=== PATIENT | male | born 1945 | race Two or more races ===

== ENCOUNTER 2019-01-19 04:26 | Inpatient (IN) | payer MEDICAID ==
[~2019-01-19] VITALS: Ht 167.6 cm; Wt 67.6 kg
[2019-01-19] MEDS ORDERED: BENAZEPRIL HCL5 MG ORAL (04:38)
[2019-01-19] MEDS ORDERED: ARICEPT10 MG ORAL (04:38)
[2019-01-19] MEDS ORDERED: FLEET ENEMA133 ML RECTAL (04:38)
[2019-01-19] MEDS ORDERED: COLACE100 MG ORAL (04:38)
[2019-01-19] MEDS ORDERED: DULCOLAX10 MG RC (04:38)
--- NOTE | 2019-01-19 04:40 | NUR ---
ED Nurse Note: PT was brought in from [facility] by EMS. As per EMS statment, nursing facility does not know how pt injured L hip. L hip appears brused, but no other deformites noted. pt appeart to be alert and oriented times 1, but responds to his own name. vital signs are steady. pt is blind in both eyes as reported from EMS.
--- NOTE | 2019-01-19 04:40 | NUR ---
Note emeritaone in EDM - 01/19/19 at 0649 by DIANE ED Nurse Note: PT was brought in from [facility] by EMS. As per EMS statment, nursing facility does not know how pt injured L hip. L hip appears brused, but no other deformites noted. pt appeart to be alert and oriented times 1, but responds to his own name. vital signs are steady.
[2019-01-19] MEDS ORDERED: MULTIVITAMINS1 EAC2 ORAL (04:42)
[2019-01-19] MEDS ORDERED: METFORMIN HCL500 M1 ORAL (04:42)
[2019-01-19] MEDS ORDERED: LATANOPROST 0.7.5 ML OP (04:42)
[2019-01-19] MEDS ORDERED: MILK OF MA400 MG/51 ORAL (04:42)
[2019-01-19] MEDS ORDERED: FUROSEMIDE20 M1 ORAL (04:42)
[2019-01-19] MEDS ORDERED: Morphine Sulfate 4mg/ml Inj (IV USE ONLY) IVP ONE (04:45)
[2019-01-19] MEDS ORDERED: OMEGA 3 FATTY ACIDS PO (04:46)
[2019-01-19] MEDS ORDERED: WELCHOL625 MG ORAL (04:46)
[2019-01-19] MEDS ORDERED: SENNA TABLET PO (04:46)
[2019-01-19] MEDS ORDERED: ACETAMINOPHEN325 M1 ORAL (04:46)
--- NOTE | 2019-01-19 05:06 | Emergency Room Report ---
History of Present Illness General Chief Complaint: Lower Extremity Injury Source: Medical Record Present Illness HPI This a 73-year-old male with a history of diabetes, high blood pressure , CVA, dementia and schizophrenia. He presents with chief complaint of left hip fracture. 2 days ago he claimed of left hip pain. Unknown trauma. Yesterday x-rays were done and it showed a left hip fracture. Patient is a very poor historian. Is complaining of pain with movement of the leg. Allergies: Coded Allergies: No Known Allergies (Unverified , 01/19/19) Patient History Past Medical History: see triage record, old chart reviewed, CVA/TIA, psych hx Past Surgical History: other Pertinent Family History: none Social History: Denies: smoking Immunizations: other Reviewed Nursing Documentation: PMH: Agreed; PSxH: Agreed Nursing Documentation-PMH Past Medical History: No History, Except For Hx Hypertension: Yes - Hyperlipidemia Hx Diabetes: Yes History Of Psychiatric Problem: Yes - Dementia, Schizophrenia, Psychosis NOS, Bipolar, MDD, Hx Cerebrovascular Accident: Yes - TIA w/o residual deficits Review of Systems Eye: Denies: eye pain, blurred vision ENT: Denies: ear pain, nose congestion, throat swelling Respiratory: Denies: cough, shortness of breath Cardiovascular: Denies: chest pain, palpitations Gastrointestinal: Denies: abdominal pain, diarrhea, nausea, vomiting Musculoskeletal: Reports: joint pain Skin: Denies: rash Neurological: Denies: headache, numbness Endocrine: Denies: increased thirst, increased urine Hematologic/Lymphatic: Denies: easy bruising All Other Systems: negative except mentioned in HPI Physical Exam Vital Signs Date Time Temp Pulse Resp B/P (MAP) Pulse Ox O2 Delivery O2 Flow Rate FiO2 01/19/19 04:26 97.5 76 19 91/48 99 Room Air vitals unremarkable Sp02 EP Interpretation: reviewed, normal General Appearance: well appearing, no apparent distress, alert Head: normocephalic, atraumatic Eyes: bilateral eye PERRL, bilateral eye EOMI ENT: hearing grossly normal, normal pharynx Neck: full range of motion, supple, no meningismus Respiratory: chest non-tender, lungs clear, normal breath sounds Cardiovascular #1: regular rate, rhythm, no murmur Gastrointestinal: normal bowel sounds, non tender, no mass, no organomegaly, no bruit, non-distended Musculoskeletal: back normal, other - Patient is actually lying on the left hip comfortably. Tenderness with movement of leg Psychiatric: mood/affect normal Skin: warm/dry Medical Decision Making Diagnostic Impression: Primary Impression: Closed intertrochanteric fracture of left femur Qualified Codes: S72.142A - Displaced intertrochanteric fracture of left femur , initial encounter for closed fracture ER Course Patient presents with left hip pain and has a displaced left intertrochanteric/ subtrochanteric fracture. Unknown fall. Pain appeared to be well controlled. Because patient is from [facility], he will be admitted to Dr. Prince and Kunal. Lab Results Impression labs unremarkable EKG Diagnostic Results Rate: normal Rhythm: NSR ST Segments: no acute changes Rhythm Strip Diag. Results EP Interpretation: yes Rate: 81 Rhythm: NSR, no PVC's, no ectopy Chest X-Ray Diagnostic Results Chest X-Ray Diagnostic Results : Chest X-Ray Ordered: Yes # of Views/Limited/Complete: 1 View Indication: Other - preop EP Interpretation: Yes Interpretation: no consolidation, no effusion, no pneumothorax, no acute cardiopulmonary disease Impression: No acute disease Electronically Signed by: Oz Craig MD Other X-Ray Diagnostic Results Other X-Ray Diagnostic Results : X-Ray ordered: Left hip x-rays # of Views/Limited Vs Complete: 3 View Indication: Pain EP Interpretation: Yes Interpretation: no soft tissue swelling, other - left intertrochanteric frx , displaced. Impression: Other - left hip frx, intertrochanteric Electronically Signed by: Oz Craig MD Last Vital Signs Date Time Temp Pulse Resp B/P (MAP) Pulse Ox O2 Delivery O2 Flow Rate FiO2 01/19/19 04:26 97.5 76 19 91/48 99 Room Air Status: improved Disposition: ADMITTED INPATIENT Condition: Serious Oz Craig MD Jan 19, 2019 05:06
[2019-01-19 05:12] VITALS: BP 91/48
[2019-01-19 05:39] LABS: BASOPHILS % (AUTO) 0.6 % (0.0-2.0); EOSINOPHILS % (AUTO) 0.2 % (0.0-3.0); HEMATOCRIT 36.3 % (42.0-52.0); HEMOGLOBIN 12.1 G/DL (14.2-18.0); LYMPHOCYTES % (AUTO) 16.4 % (20.0-45.0); MEAN CORPUSCULAR VOLUME 92 FL (80-99); NEUTROPHILS % (AUTO) 73.8 % (45.0-75.0); PLATELET COUNT 186 K/UL (150-450); RED BLOOD COUNT 3.95 M/UL (4.70-6.10); RED CELL DISTRIBUTION WIDTH 11.8 % (11.6-14.8)
[2019-01-19 05:53] LABS: ANION GAP 9 mmol/L (5-15); BLOOD UREA NITROGEN 13 mg/dL (7-18); CALCIUM 8.7 MG/DL (8.5-10.1); CARBON DIOXIDE 28 MMOL/L (21-32); CHLORIDE 100 MMOL/L (98-107); CREATININE 0.6 MG/DL (0.55-1.30); SODIUM 137 MMOL/L (136-145)
[2019-01-19 06:03] LABS: APPEARANCE,URINE CLEAR; BILIRUBIN, URINE NEGATIVE (NEGATIVE); COLOR,URINE PALE YELLOW; GLUCOSE, URINE (UA) NEGATIVE (NEGATIVE); KETONES,URINE NEGATIVE (NEGATIVE); LEUKOCYTE ESTERASE ,URINE NEGATIVE (NEGATIVE); NITRITE,URINE NEGATIVE (NEGATIVE); PH,URINE 6.5 (4.5-8.0); PROTEIN,URINE NEGATIVE (NEGATIVE); UROBILINOGEN,URINE NORMAL MG/DL (0.0-1.0)
[2019-01-19 06:13] VITALS: BP 101/52
--- NOTE | 2019-01-19 07:10 | NUR ---
ED Nurse Note: Tried giving report, RN unavailable. Will try again. Pt noted to be asleep comfortably in bed. No acute distress noted. Will continue to monitor.
--- NOTE | 2019-01-19 07:47 | NUR ---
ED Nurse Note: Gave telephone report to ROMARIO Montes De Oca. Bed unavailable. Will try again.
--- NOTE | 2019-01-19 08:00 | NUR ---
NURSE NOTES: Received report from Ryne Myers. pt a/a/o x4 laying in bed with no signs of distress or other issues at this time. Iv on the right AC gauge#18 running NS@150ml/hr. pt advanced to regular diet, pt is tolerating well with no n/v. call light within reach. bed in lowest position. side rales up x2.plan to d/c home today. I will f/u as needed. Addendum: 01/19/19 at 1741 by Tavon Fair RN please discard this note belong to a different patient
--- NOTE | 2019-01-19 08:32 | NUR ---
ED Nurse Note: Pt transferred up to med surg unit. No acute distress noted. Left ER w/ all belongings.
--- NOTE | 2019-01-19 08:35 | NUR ---
NURSE NOTES: Received report from Palomo DOSS. pt a/a/o x1 (name). per report pt's has been removing his IV's x2. pt is blind from bilateral eyes. VS stable: 98.7, 67, 18, 98/52, 98% RA. RN will review orders and will carry on as indicated by MD. call light within reach. bed in lowest position. side rales up x2. I will f/u as needed.
[2019-01-19] MEDS ORDERED: LORazepam Inj 2mg/ml 1ml IV PRN ×2 (09:30→19:15)
[2019-01-19] MEDS ORDERED: Miralax 17gm pkt ORAL PRN (09:30)
[2019-01-19] MEDS ORDERED: Zolpidem 5mg tab ORAL PRN (09:30)
[2019-01-19] MEDS ORDERED: Mylanta II UD 30ml ORAL PRN (09:30)
[2019-01-19] MEDS ORDERED: Morphine Sulfate 2mg/ml Inj(IV/IM USE ONLY) IVP PRN (09:30)
--- NOTE | 2019-01-19 09:43 | NUR ---
CLOSING AGENTSENIOR LIBRARIAN 73 Y/O MALE LAURIE [facility] TO [facility] ER CC:LOWER EXTREMITY INJURY SI:LEFT HIP FRACTURE VS: BP 91/48, P 76, T 97.5, RR 76, SpO2 99 Hgb 12.1, Hct 36.3 IS:ZOFRAN 4mg IVP MORPHINE SULFATE 4mG IVP POTASSIUM [id number]/NS 1005ml IV ADMITTED TO TELE DC PLAN: RETURN TO [facility]
[2019-01-19] MEDS: NovoLOG Insulin Flexpen SUBQ SCH ×3 (13:23→21:00)
--- NOTE | 2019-01-19 13:28 | NUR ---
*-* NO INSURANCE INFORMATION IN THE BAR TO SEND CLINICALS OR REVIEWS *-*
--- NOTE | 2019-01-19 14:45 | NUR ---
NURSE NOTES: RN called Yashira ELIF that patient has a consult for substance abuse. Yashira ELIF stated that she will stop by. I will f/u as needed. Addendum: 01/19/19 at 1740 by Tavon Fair RN Please discard this notes belong to a different patient
--- NOTE | 2019-01-19 16:00 | NUR ---
NURSE NOTES: Received orders for discharge. pt's agreed with d/c plan however he was in a rash to go and REFUSED to wait to sign d/c paper work and belongings list. he also stated that the "lift" is already here ready to pick him up. IV removed prior to d/c. pt signed AMA. [facility] I will f/u as needed. Addendum: 01/19/19 at 1738 by Tavon Fair RN please discard this notes. It belongs to another patient
[2019-01-19] MEDS ORDERED: HYDROmorphone 1mg/ml Carpuject SUBQ PRN (19:00)
--- NOTE | 2019-01-19 19:00 | NUR ---
NURSE NOTES: During medication time. RN was about to give morphine 1mg IV however pt removed IV site while RN was going to administrate meds. RN called pharmacy to notify s/w Thuan. RN also notify Katelin FORD, who witnessed wasting medication. I will f/u as needed.
[2019-01-19] MEDS: LORazepam 1mg tab ORAL PRN (19:07)
--- NOTE | 2019-01-19 19:10 | History & Physical ---
History and Physical History & Physicial Dictated for Int med-Dr Prince no. [id number]. Jesús Arias MD Jan 19, 2019 19:10
--- NOTE | 2019-01-19 19:30 | NUR ---
NURSE NOTES: Received report from ROMARIO Montes De Oca. Received pt restless in bed, confused, thrashing the bed, threw all the pillows, blankets, water pitcher, cups on the floor. Pt legally blind both eyes. Estonian speaking only, pt can not follow direction, uncooperative. Safety meausres maintained. Bed in lowest position, locked, bed alarm on, side rails up x 3, call light within reach. Will continue to monitor.
--- NOTE | 2019-01-19 19:51 | NUR ---
HAND-OFF: Report given to Ryne Alarcon pt in stable condition. - RN called Dr. Arias to request to change IV pains to SQ or PO, RN will carry on orders.
[2019-01-19 20:00] VITALS: BP 100/50
--- NOTE | 2019-01-19 21:00 | NUR ---
NURSE NOTES: Dr Segovia came saw pt no new order given.
[2019-01-19] MEDS: Heparin 5000 units/ml inj SUBQ SCH (21:15)
[2019-01-19] MEDS: Donepezil 10mg tab ORAL SCH (21:15)
--- NOTE | 2019-01-19 21:30 | NUR ---
NURSE NOTES: Pt pulled out rush catheter. Pt bleeding from penile area. Rush catheter intact. New IV insert right upper arm #22 patent and intact. Will resume IV fluid ordered. Paged Dr. Arias, regarding pt pulled out rush and removed 4 IV's since this am. Awaiting for call back.
--- NOTE | 2019-01-19 21:40 | NUR ---
NURSE NOTES: Moved pt to room 301-1 close to nurse's station for close monitoring.
[2019-01-19] MEDS: Morphine Sulfate 2mg/ml Inj(IV/IM USE ONLY) IVP PRN (23:16)
--- NOTE | 2019-01-19 23:16 | NUR ---
NURSE NOTES: Pt restless in bed, screaming when changing pt bed. Morphine 1mg IVP given. Will continue to monitor.
[2019-01-20] VITALS: BP 123/69
--- NOTE | 2019-01-20 02:05 | NUR ---
NURSE NOTES: Pt restless in bed, Ativan 1mg PO administered, tolerated well without difficulty. Will continue to monitor.
[2019-01-20] MEDS: LORazepam 1mg tab ORAL PRN (02:08)
[2019-01-20 04:00] VITALS: BP 99/59
[2019-01-20] MEDS: NovoLOG Insulin Flexpen SUBQ SCH ×4 (06:07→21:00)
--- NOTE | 2019-01-20 06:24 | NUR ---
NURSE NOTES: Dr. Arias called back obtained order for bilateral wrist restraints.
--- NOTE | 2019-01-20 06:30 | NUR ---
NURSE NOTES: Pt very agitated, restless in bed, pulling on IV line. Bilateral soft wrist restraints applied, skin color normal and intact. Will continue to monitor.
[2019-01-20] MEDS: Morphine Sulfate 2mg/ml Inj(IV/IM USE ONLY) IVP PRN (07:10)
--- NOTE | 2019-01-20 07:11 | NUR ---
HAND-OFF: Report given to ROMARIO Gamboa. Pt in stable condition.
[2019-01-20 07:22] LABS: BASOPHILS % (AUTO) 0.6 % (0.0-2.0); EOSINOPHILS % (AUTO) 0.1 % (0.0-3.0); HEMATOCRIT 29.4 % (42.0-52.0); LYMPHOCYTES % (AUTO) 10.8 % (20.0-45.0); MEAN CORPUSCULAR VOLUME 91 FL (80-99); MONOCYTES % (AUTO) 8.1 % (1.0-10.0); NEUTROPHILS % (AUTO) 80.4 % (45.0-75.0); PLATELET COUNT 159 K/UL (150-450); RED BLOOD COUNT 3.22 M/UL (4.70-6.10); RED CELL DISTRIBUTION WIDTH 11.3 % (11.6-14.8); WHITE BLOOD COUNT 7.8 K/UL (4.8-10.8)
--- NOTE | 2019-01-20 07:30 | NUR ---
NURSE NOTES: Patient lying in bed awake. No complain of pain or distress at this time. Skin intact and dry. IV dressing intact and dry. On Bilateral soft wrist restraints. Bed lowest position. Call light within reach. Will continue to monitor.
[2019-01-20 08:00] VITALS: BP 100/54
[2019-01-20 08:24] LABS: ALANINE AMINOTRANSFERASE 19 U/L (12-78); ALBUMIN 2.7 G/DL (3.4-5.0); ALBUMIN/GLOBULIN RATIO 0.8 (1.0-2.7); ALKALINE PHOSPHATASE 113 U/L (46-116); ANION GAP 9 mmol/L (5-15); ASPARTATE AMINO TRANSFERASE 33 U/L (15-37); BILIRUBIN,TOTAL 1.6 MG/DL (0.2-1.0); BLOOD UREA NITROGEN 12 mg/dL (7-18); CARBON DIOXIDE 25 MMOL/L (21-32); CHLORIDE 102 MMOL/L (98-107); CHOLESTEROL 115 MG/DL (< 200); CREATININE 0.3 MG/DL (0.55-1.30); HDL CHOLESTEROL 49 MG/DL (40-60); POTASSIUM 4.6 MMOL/L (3.5-5.1); SODIUM 136 MMOL/L (136-145); TRIGLYCERIDES 67 MG/DL (30-150)
[2019-01-20 08:27] LABS: BILIRUBIN,DIRECT 0.2 MG/DL (0.0-0.3)
[2019-01-20] MEDS: Heparin 5000 units/ml inj SUBQ SCH ×2 (08:52→20:23)
[2019-01-20] MEDS ORDERED: Benazepril 10mg tab ORAL SCH (09:00)
[2019-01-20] MEDS ORDERED: Docusate 100mg cap ORAL SCH (09:00)
--- NOTE | 2019-01-20 11:22 | Consultation ---
History of Present Illness General Chief Complaint: Lower Extremity Injury Present Illness HPI 73-year-old male with a history of diabetes, high blood pressure, CVA, dementia and schizophrenia presents with chief complaint of left hip fracture. . A x-ray were done and it showed a left hip fracture. Allergies: Coded Allergies: No Known Allergies (Unverified , 01/19/19) Medication History Scheduled Benazepril Hcl (Benazepril Hcl), 5 MG ORAL DAILY, (Reported) Colesevelam Hcl (Welchol), 1,875 MG ORAL TWICE A DAY, (Reported) Docusate Sodium* (Colace*), 100 MG ORAL DAILY, (Reported) Donepezil Hcl* (Aricept*), 10 MG ORAL BEDTIME, (Reported) Furosemide* (Lasix*), 20 MG ORAL TWICE A DAY, (Reported) Latanoprost/Pf (Latanoprost 0.005% Eye Drop), 1 DRP OP DAILY, (Reported) Metformin Hcl* (Metformin Hcl*), 500 MG ORAL THREE TIMES A DAY, (Reported) Multivitamins* (Multivitamins*), 1 TAB ORAL DAILY, (Reported) [Sterling 3 Fatty Acids], 1 MG PO TWICE A DAY, (Reported) [Senna Tablet], 2 TAB PO PRN, (Reported) Scheduled PRN Acetaminophen* (Acetaminophen 325MG Tablet*), 650 MG ORAL Q4H PRN for Mild Pain/ Temp > 100.5, (Reported) Bisacodyl (Dulcolax), 10 MG RC DAILY PRN for Constipation, (Reported) Magnesium Hydroxide* (Milk Of Magnesia*), 30 ML ORAL QHS PRN for Constipation, ( Reported) Na Phos,M-B/Na Phos,Di-Ba* (Fleet Enema*), 133 ML RECTAL EVERY 2 DAYS PRN for Constipation, (Reported) Patient History Healthcare decision maker N Resuscitation status Full Code Advanced Directive on File Past Medical/Surgical History Past Medical/Surgical History: (1) Alzheimer's dementia (2) Cerebrovascular accident (CVA) (3) Diabetes mellitus (4) History of hypertension (5) DVT (deep venous thrombosis) Review of Systems All Other Systems: negative except mentioned in HPI Physical Exam General Appearance: cachetic Lines, tubes and drains: peripheral HEENT: normocephalic, atraumatic Neck: non-tender, normal alignment Respiratory/Chest: chest wall non-tender, lungs clear Breasts: no masses Cardiovascular/Chest: normal peripheral pulses, normal rate Abdomen: normal bowel sounds, non tender Genitourinary/Rectal: normal genital exam Extremities: normal range of motion Skin Exam: normal pigmentation Neurologic: transport 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 normal Last 24 Hour Vital Signs Date Time Temp Pulse Resp B/P (MAP) Pulse Ox O2 Delivery O2 Flow Rate FiO2 01/20/19 09:00 Room Air 01/20/19 09:00 100/54 01/20/19 08:00 97.1 92 19 100/54 (69) 97 01/20/19 04:00 98.5 97 18 99/59 (72) 97 01/20/19 00:00 97.6 93 18 123/69 (87) 97 01/19/19 21:00 Room Air 01/19/19 20:00 98.4 76 18 100/50 (67) 99 Intake and Output 01/19/19 01/20/19 19:00 07:00 Intake Total 1050 ml Balance 1050 ml IV Total 1050 ml Laboratory Tests Test 01/20/19 05:30 White Blood Count 7.8 K/UL (4.8-10.8) Red Blood Count 3.22 M/UL (4.70-6.10) L Hemoglobin 10.0 G/DL (14.2-18.0) L Hematocrit 29.4 % (42.0-52.0) L Mean Corpuscular Volume 91 FL (80-99) Mean Corpuscular Hemoglobin 31.0 PG (27.0-31.0) Mean Corpuscular Hemoglobin Concent 33.9 G/DL (32.0-36.0) Red Cell Distribution Width 11.3 % (11.6-14.8) L Platelet Count 159 K/UL (150-450) Mean Platelet Volume 6.4 FL (6.5-10.1) L Neutrophils (%) (Auto) 80.4 % (45.0-75.0) H Lymphocytes (%) (Auto) 10.8 % (20.0-45.0) L Monocytes (%) (Auto) 8.1 % (1.0-10.0) Eosinophils (%) (Auto) 0.1 % (0.0-3.0) Basophils (%) (Auto) 0.6 % (0.0-2.0) Sodium Level 136 MMOL/L (136-145) Potassium Level 4.6 MMOL/L (3.5-5.1) Chloride Level 102 MMOL/L (98-107) Carbon Dioxide Level 25 MMOL/L (21-32) Anion Gap 9 mmol/L (5-15) Blood Urea Nitrogen 12 mg/dL (7-18) Creatinine 0.3 MG/DL (0.55-1.30) L Estimat Glomerular Filtration Rate mL/min (>60) Glucose Level 101 MG/DL (74-106) Calcium Level 8.0 MG/DL (8.5-10.1) L Total Bilirubin 1.6 MG/DL (0.2-1.0) H Direct Bilirubin 0.2 MG/DL (0.0-0.3) Aspartate Amino Transf (AST/SGOT) 33 U/L (15-37) Alanine Aminotransferase (ALT/SGPT) 19 U/L (12-78) Alkaline Phosphatase 113 U/L (46-116) Total Protein 6.0 G/DL (6.4-8.2) L Albumin 2.7 G/DL (3.4-5.0) L Globulin 3.3 g/dL Albumin/Globulin Ratio 0.8 (1.0-2.7) L Triglycerides Level 67 MG/DL (30-150) Cholesterol Level 115 MG/DL (< 200) LDL Cholesterol 56 mg/dL (<100) HDL Cholesterol 49 MG/DL (40-60) Cholesterol/HDL Ratio 2.3 (3.3-4.4) L Height (Feet): 5 Height (Inches): 6.00 Weight (Pounds): 149 Medications Current Medications Medications (Trade) Dose Ordered Sig/Cirilo Route PRN Reason Start Time Stop Time Status Last Admin Dose Admin Acetaminophen (Tylenol) 650 mg Q4H PRN ORAL fever 01/19/19 09:30 02/18/19 09:29 Al Hydroxide/Mg Hydroxide (Mylanta II) 30 ml Q6H PRN ORAL dyspepsia 01/19/19 09:30 02/18/19 09:29 Benazepril HCl (Lotensin) 5 mg DAILY ORAL 01/20/19 09:00 02/19/19 08:59 Dextrose (Dextrose 50%) 25 ml Q30M PRN IV Hypoglycemia 01/19/19 09:30 02/18/19 09:29 Dextrose (Dextrose 50%) 50 ml Q30M PRN IV Hypoglycemia 01/19/19 09:30 02/18/19 09:29 Docusate Sodium (Colace) 100 mg DAILY ORAL 01/20/19 09:00 02/19/19 08:59 01/20/19 08:51 Donepezil HCl (Aricept) 10 mg BEDTIME ORAL 01/19/19 21:00 02/18/19 20:59 01/19/19 21:15 Heparin Sodium (Porcine) (Heparin 5000 units/ml) 5,000 units EVERY 12 HOURS SUBQ 01/19/19 21:00 02/18/19 20:59 01/20/19 08:52 Hydromorphone HCl (Dilaudid) 1 mg Q4H PRN SUBQ Severe Pain (Pain Scale 7-10) 01/19/19 19:00 01/26/19 18:59 01/19/19 19:07 Insulin Aspart (NovoLOG) BEFORE MEALS AND HS SUBQ 01/19/19 11:30 02/18/19 11:29 01/20/19 06:07 Lorazepam (Ativan 2mg/ml 1ml) 0.5 mg Q4H PRN IV For Anxiety 01/19/19 19:15 01/26/19 09:29 Lorazepam (Ativan) 1 mg Q4H PRN ORAL For Anxiety 01/19/19 19:00 01/26/19 18:59 01/20/19 02:08 Morphine Sulfate (Morphine Sulfate) 1 mg Q4H PRN IVP moderate pain 01/19/19 19:15 01/26/19 09:29 01/20/19 07:10 Ondansetron HCl (Zofran) 4 mg Q6H PRN IVP Nausea & Vomiting 01/19/19 09:30 02/18/19 09:29 Polyethylene Glycol (Miralax) 17 gm HSPRN PRN ORAL Constipation 01/19/19 09:30 02/18/19 09:29 Sodium Chloride 1,000 ml @ 150 mls/hr Q6H40M IV 01/19/19 06:00 02/18/19 05:59 01/20/19 06:05 Zolpidem Tartrate (Ambien) 5 mg HSPRN PRN ORAL Insomnia 01/19/19 09:30 01/26/19 09:29 01/19/19 21:08 Assessment/Plan Problem List: (1) Closed intertrochanteric fracture of left femur ICD Codes: S72.142A - Displaced intertrochanteric fracture of left femur, initial encounter for closed fracture SNOMED: 10448872 Qualifiers: Qualified Codes: S72.142A - Displaced intertrochanteric fracture of left femur, initial encounter for closed fracture (2) Debility ICD Codes: R53.81 - Other malaise SNOMED: 81635137 (3) Diabetes mellitus ICD Codes: E11.9 - Type 2 diabetes mellitus without complications SNOMED: 04574187 (4) DVT (deep venous thrombosis) ICD Codes: I82.409 - Acute embolism and thrombosis of unspecified deep veins of unspecified lower extremity SNOMED: 369995808 (5) History of hypertension ICD Codes: Z86.79 - Personal history of other diseases of the circulatory system SNOMED: 467177681 (6) Cerebrovascular accident (CVA) ICD Codes: I63.9 - Cerebral infarction, unspecified SNOMED: 735823526 (7) Alzheimer's dementia ICD Codes: G30.9 - Alzheimer's disease, unspecified; F02.80 - Dementia in other diseases classified elsewhere without behavioral disturbance SNOMED: 33760765 Assessment/Plan comfort care Ortho saw the pt and recommended conservative treatment social service consult to find family members or next of kin to talk about plan of care including palliative care and hospice. Jaylene Syed MD Jan 20, 2019 11:22
[2019-01-20 12:00] VITALS: BP 106/95
--- NOTE | 2019-01-20 13:51 | History and Physical Report ---
DATE OF ADMISSION: 01/19/2019 CHIEF COMPLAINT: The patient is a 73-year-old male, who presents with a chief complaint of left hip pain. HISTORY OF PRESENT ILLNESS: The patient is a resident of [facility]. The patient had been complaining of left hip pain for two days. An x-ray performed on January 18, 2019 revealed a left femur intertrochanteric fracture, displaced. The patient presented to [place] emergency room. The patient is admitted for left intertrochanteric femur fracture. REVIEW OF SYSTEMS: Unable to assess secondary to the patient's mental status. PAST MEDICAL HISTORY: Significant for, 1. Type 2 diabetes. 2. Hypertension. 3. Cerebrovascular disease, status post cerebrovascular accident and transient ischemic attack. 4. Alzheimer's dementia. 5. Hypercholesterolemia. 6. Schizophrenia. 7. Glaucoma. PAST SURGICAL HISTORY: Unknown. CURRENT MEDICATIONS: 1. Aricept 10 mg one tablet p.o. at bedtime. 2. Benazepril 5 mg p.o. daily. 3. Lasix 20 mg p.o. daily. 4. Latanoprost 0.005% 1 drop in both eyes at bedtime. 5. Metformin 500 mg p.o. 3 times daily. 6. Multivitamin one tablet p.o. daily. 7. Welchol 1875 mg p.o. twice daily. ALLERGIES: No known drug allergies. SOCIAL HISTORY: The patient is single and is a resident of [facility]. The patient denies tobacco or alcohol use. PHYSICAL EXAMINATION: VITAL SIGNS: Temperature 97.5, respirations 19, pulse 75, and blood pressure 91/48. GENERAL: The patient is a well-developed and well-nourished male, who is somewhat agitated. HEENT: Eyes, pupils are equal and responsive to light and accommodation. Extraocular movements are intact. NECK: Supple without lymphadenopathy. CHEST: Lungs are clear to auscultation bilaterally without wheezes or rales. CARDIOVASCULAR: Regular rhythm and rate. S1 and S2 are normal without murmurs, rubs, or gallops. ABDOMEN: Soft, nontender, and nondistended. Positive bowel sounds. No evidence of hepatosplenomegaly. Currently, no rebound or guarding noted. EXTREMITIES: Negative for clubbing, cyanosis, or edema. RECTAL/GENITAL: Refused. NEUROLOGIC: Cranial nerves II through XII are intact without focal deficits. IMAGING: An x-ray of the left hip from [facility] revealed displaced left intertrochanteric femur fracture. LABORATORY STUDIES: WBC 9.3, hemoglobin 12.2, hematocrit 36.3, and platelets 186,000. Sodium 137, potassium 4.0, chloride 100, CO2 20, BUN 13, creatinine 0.6, and glucose 125. ASSESSMENT: This is a 73-year-old male. 1. Left intertrochanteric femur fracture. 2. Diabetes type 2. 3. Hypertension. 4. Cerebrovascular disease. 5. Alzheimer's dementia. 6. Schizophrenia. 7. Glaucoma. TREATMENT: 1. Left intertrochanteric femur fracture. An Orthopedic consultation has been obtained with Dr. Juan Carlos Segovia. We will follow recommendations of Orthopedic Surgery. 2. Diabetes type 2. A NovoLog sliding scale has been instituted. 3. Hypertension. Continue benazepril as above. 4. Cerebrovascular disease. 5. Alzheimer's dementia. Continue Aricept as above. 6. History of schizophrenia. 7. Glaucoma. Continue latanoprost as above. Jesús Arias M.D. DR: JANICE JOB#: [id number] CC:
--- NOTE | 2019-01-20 13:51 | Consultation ---
DATE OF CONSULTATION: 01/19/2019 CONSULTING PHYSICIAN: Henry Segovia M.D. REQUESTING PHYSICIAN: Tyrese Prince M.D. CHIEF COMPLAINT: Left hip pain. HISTORY OF PRESENT ILLNESS: The patient is a 73-year-old gentleman with complicated medical history who had a fall, was diagnosed with left femoral neck fracture. Orthopedic consultation obtained for further care and recommendation. PAST MEDICAL HISTORY: Significant for diabetes, schizophrenia, hypertension, cellulitis, DVT. MEDICATIONS: Reviewed from the intake chart. SOCIAL HISTORY: Unknown. PHYSICAL EXAMINATION: GENERAL: The patient has significant cognitive impairment. The patient is agitated. VITAL SIGNS: Afebrile. Stable vital signs. EXTREMITIES: Left hip examination shows moderate ecchymosis and swelling in the left thigh. Posterior calf is soft. DIAGNOSTIC DATA: Imaging studies showed displaced femoral neck fracture. DISCUSSION: At this point, the patient is basically nonambulatory, does have displaced femoral neck fracture. At this point, I think medical like issues. I do not really think he is good candidate for any type of hemiarthroplasty given high risk of dislocation, infection, complications. At this point, I can leave him conservatively with closed treatment given that he is basically bed bound to begin with. If anything if he still has issues, he may be candidate for gross total procedure. At this point, I will communicate my findings with prior treating physicians and work on discharge planning. Henry Segovia M.D. DR: Vikas JOB#: [id number] CC:
--- NOTE | 2019-01-20 14:11 | NUR ---
CASE MANAGEMENT:REVIEW 01/20/19 SI: FEMORAL NECK FRACTURE *CONSERVATIVE TREATMENT AT THIS TIME 97.5 76 18 106/95 96% ON RA IS: HEPARIN SQ Q12 IV MORPHINE Q4HRS PRN PAIN ATIVAN PO Q4HRS PRN DILAUDID SQ Q4HRS PRN LOTENSIN PO QD ARICEPT PO QHS IVF@150/HR : MED/SURG STATUS 3 EAST DCP: FROM [facility]
--- NOTE | 2019-01-20 14:19 | NUR ---
*-* NO INSURANCE INFORMATION IN THE BAR TO SEND CLINICALS OR REVIEWS *-*
--- NOTE | 2019-01-20 14:34 | NUR ---
Social Service Note Patient has been a resident of [facility] since 2009. Upon admission into SNF it was indicated that patient is not capable of making preferred intensity of care decisions. Per MATT Vazquez patient's mental status did not improve and patient continues not to be able to make medical decision. Public Guardian deemed patient an non-handle and closed referral by SNF. SNF IDT is decision maker for patient while in their facility. Patient under the medical care of Dr. Kwon. Orthopedic consult noted recommending conservative care. Patient bed bound in facility with no fall. JAIMEE discussed with MATT regarding palliative care. Per MATT an IDT meeting will be arranged to address plan of care with Dr. Kwon and will address a palliative care approach. Patient is a full code at this time. MATT requesting pain medication orders to follow patient upon discharge from hospital. JAIMEE informed CM. Dr. Prince and Dr. Syed. Will continue to monitor.
--- NOTE | 2019-01-20 14:58 | NUR ---
DISCHARGE PLAN DISCHARGE ORDER NOTED FAXED CLINICALS TO [facility] T: [phone] F: [phone]
[2019-01-20 16:00] VITALS: BP 107/73
--- NOTE | 2019-01-20 16:10 | NUR ---
DISCHARGE PLAN PATIENT WILL RETURN TO [facility] ROOM 13-C USP T; [phone] FOR NURSE TO NURSE REPORT [facility] HAS BEEN ARRANGED FOR 1745 PICKUP
--- NOTE | 2019-01-20 17:20 | NUR ---
NURSE NOTES: Called [facility] and given report to Roshni Arnold RN that patient will transfer today.
--- NOTE | 2019-01-20 18:22 | Internal Med Progress Note ---
Subjective Date of Service: Jan 20, 2019 Physician Name Jesús Arias Attending Physician Tyrese Prince MD Current Medications Medications (Trade) Dose Ordered Sig/Cirilo Route PRN Reason Start Time Stop Time Status Last Admin Dose Admin Acetaminophen (Tylenol) 650 mg Q4H PRN ORAL fever 01/19/19 09:30 02/18/19 09:29 Al Hydroxide/Mg Hydroxide (Mylanta II) 30 ml Q6H PRN ORAL dyspepsia 01/19/19 09:30 02/18/19 09:29 Benazepril HCl (Lotensin) 5 mg DAILY ORAL 01/20/19 09:00 02/19/19 08:59 Dextrose (Dextrose 50%) 25 ml Q30M PRN IV Hypoglycemia 01/19/19 09:30 02/18/19 09:29 Dextrose (Dextrose 50%) 50 ml Q30M PRN IV Hypoglycemia 01/19/19 09:30 02/18/19 09:29 Docusate Sodium (Colace) 100 mg DAILY ORAL 01/20/19 09:00 02/19/19 08:59 01/20/19 08:51 Donepezil HCl (Aricept) 10 mg BEDTIME ORAL 01/19/19 21:00 02/18/19 20:59 01/19/19 21:15 Heparin Sodium (Porcine) (Heparin 5000 units/ml) 5,000 units EVERY 12 HOURS SUBQ 01/19/19 21:00 02/18/19 20:59 01/20/19 08:52 Hydromorphone HCl (Dilaudid) 1 mg Q4H PRN SUBQ Severe Pain (Pain Scale 7-10) 01/19/19 19:00 01/26/19 18:59 01/19/19 19:07 Insulin Aspart (NovoLOG) BEFORE MEALS AND HS SUBQ 01/19/19 11:30 02/18/19 11:29 01/20/19 17:45 Lorazepam (Ativan 2mg/ml 1ml) 0.5 mg Q4H PRN IV For Anxiety 01/19/19 19:15 01/26/19 09:29 01/20/19 12:54 Lorazepam (Ativan) 1 mg Q4H PRN ORAL For Anxiety 01/19/19 19:00 01/26/19 18:59 01/20/19 02:08 Morphine Sulfate (Morphine Sulfate) 1 mg Q4H PRN IVP moderate pain 01/19/19 19:15 01/26/19 09:29 01/20/19 07:10 Ondansetron HCl (Zofran) 4 mg Q6H PRN IVP Nausea & Vomiting 01/19/19 09:30 02/18/19 09:29 Polyethylene Glycol (Miralax) 17 gm HSPRN PRN ORAL Constipation 01/19/19 09:30 02/18/19 09:29 Sodium Chloride 1,000 ml @ 150 mls/hr Q6H40M IV 01/19/19 06:00 02/18/19 05:59 01/20/19 12:53 Zolpidem Tartrate (Ambien) 5 mg HSPRN PRN ORAL Insomnia 01/19/19 09:30 01/26/19 09:29 01/19/19 21:08 Allergies: Coded Allergies: No Known Allergies (Unverified , 01/19/19) ROS Limited/Unobtainable: Yes Subjective 73 YO M admitted with left femur intertrochanteric fracture. Cover for Int Med- Dr Prince. Agitated; pulled out IV and rush Objective Last Vital Signs Date Time Temp Pulse Resp B/P (MAP) Pulse Ox O2 Delivery O2 Flow Rate FiO2 01/20/19 16:00 98.1 66 19 107/73 (84) 97 01/20/19 09:00 Room Air Laboratory Tests Test 01/20/19 05:30 White Blood Count 7.8 K/UL (4.8-10.8) Red Blood Count 3.22 M/UL (4.70-6.10) L Hemoglobin 10.0 G/DL (14.2-18.0) L Hematocrit 29.4 % (42.0-52.0) L Mean Corpuscular Volume 91 FL (80-99) Mean Corpuscular Hemoglobin 31.0 PG (27.0-31.0) Mean Corpuscular Hemoglobin Concent 33.9 G/DL (32.0-36.0) Red Cell Distribution Width 11.3 % (11.6-14.8) L Platelet Count 159 K/UL (150-450) Mean Platelet Volume 6.4 FL (6.5-10.1) L Neutrophils (%) (Auto) 80.4 % (45.0-75.0) H Lymphocytes (%) (Auto) 10.8 % (20.0-45.0) L Monocytes (%) (Auto) 8.1 % (1.0-10.0) Eosinophils (%) (Auto) 0.1 % (0.0-3.0) Basophils (%) (Auto) 0.6 % (0.0-2.0) Sodium Level 136 MMOL/L (136-145) Potassium Level 4.6 MMOL/L (3.5-5.1) Chloride Level 102 MMOL/L (98-107) Carbon Dioxide Level 25 MMOL/L (21-32) Anion Gap 9 mmol/L (5-15) Blood Urea Nitrogen 12 mg/dL (7-18) Creatinine 0.3 MG/DL (0.55-1.30) L Estimat Glomerular Filtration Rate mL/min (>60) Glucose Level 101 MG/DL (74-106) Calcium Level 8.0 MG/DL (8.5-10.1) L Total Bilirubin 1.6 MG/DL (0.2-1.0) H Direct Bilirubin 0.2 MG/DL (0.0-0.3) Aspartate Amino Transf (AST/SGOT) 33 U/L (15-37) Alanine Aminotransferase (ALT/SGPT) 19 U/L (12-78) Alkaline Phosphatase 113 U/L (46-116) Total Protein 6.0 G/DL (6.4-8.2) L Albumin 2.7 G/DL (3.4-5.0) L Globulin 3.3 g/dL Albumin/Globulin Ratio 0.8 (1.0-2.7) L Triglycerides Level 67 MG/DL (30-150) Cholesterol Level 115 MG/DL (< 200) LDL Cholesterol 56 mg/dL (<100) HDL Cholesterol 49 MG/DL (40-60) Cholesterol/HDL Ratio 2.3 (3.3-4.4) L Microbiology Date/Time Source Procedure Growth Status 01/19/19 06:00 Rectum Received Intake and Output 01/19/19 01/20/19 19:00 07:00 Intake Total 1050 ml Balance 1050 ml IV Total 1050 ml Objective PHYSICAL EXAMINATION: GENERAL: The patient is a well-developed and well-nourished male, who is somewhat agitated. HEENT: Eyes, pupils are equal and responsive to light and accommodation. Extraocular movements are intact. NECK: Supple without lymphadenopathy. CHEST: Lungs are clear to auscultation bilaterally without wheezes or rales. CARDIOVASCULAR: Regular rhythm and rate. S1 and S2 are normal without murmurs, rubs, or gallops. ABDOMEN: Soft, nontender, and nondistended. Positive bowel sounds. No evidence of hepatosplenomegaly. Currently, no rebound or guarding noted. EXTREMITIES: Negative for clubbing, cyanosis, or edema. RECTAL/GENITAL: Refused. NEUROLOGIC: Cranial nerves II through XII are intact without focal deficits. Assessment/Plan Assessment/Plan ASSESSMENT: This is a 73-year-old male. 1. Left intertrochanteric femur fracture. 2. Diabetes type 2. 3. Hypertension. 4. Cerebrovascular disease. 5. Alzheimer's dementia. 6. Schizophrenia. 7. Glaucoma. TREATMENT: 1. Left intertrochanteric femur fracture. An Orthopedic consultation has been obtained with Dr. Juan Carlos Segovia. Orhotpedic surg does NOT recommend surgical repair-see note. 2. Diabetes type 2. A NovoLog sliding scale has been instituted. 3. Hypertension. Continue benazepril as above. 4. Cerebrovascular disease. 5. Alzheimer's dementia. Continue Aricept as above. 6. History of schizophrenia. 7. Glaucoma. Continue latanoprost as above. 8. Discharge planning Jesús Arias MD Jan 20, 2019 18:22
--- NOTE | 2019-01-20 19:14 | Cardiology Report ---
APPROVED REPORT EKG Measurement Heart [id number] Normal sinus rhythm Right bundle branch block Abnormal ECG
--- NOTE | 2019-01-20 19:30 | NUR ---
HAND-OFF: Report given to Ryne DOSS. Patient in stable condition.
--- NOTE | 2019-01-20 20:00 | NUR ---
NURSE NOTES: Patient in bed asleep. On soft wrist restraints. Skin assessment done. No signs of injuries or skin discoloration. On Room air with 100% oxygen saturation. VSS. No SOB noted. Due meds given. Needs attended. Bed is locked and in low position. Call light within reach. Patients seems calm at the moment. In stable condition.
[2019-01-20] MEDS: Donepezil 10mg tab ORAL SCH (20:23)
[2019-01-20] MEDS ORDERED: Tubing IV Secondary IV ONE (21:45)
--- NOTE | 2019-01-20 21:55 | NUR ---
NURSE NOTES: Patient was discharged to [facility]. VSS. No Pain at this time. Skin assessment done with no visible signs of injuries. IV site removed. Needs attended. Left in stable condition.
--- NOTE | 2019-01-22 11:40 | Discharge Summary ---
Discharge Summary Discharge Summary _ DATE OF ADMISSION: 01/19/2019 DATE OF DISCHARGE: 01/20/2019 DISCHARGED BY: Dr. Prince REASON FOR ADMISSION: 73 years old male with history of diabetes mellitus, hypertension, CVA, hypercholesterolemia, glaucoma, Alzheimer dementia, schizophrenia, presented with complaint of left hip pain for 2 days. Patient by himself was a very poor historian. He complained of pain of the left leg. X ray done at the retirement facility revealed left hip intertrochanteric/ subtrochanteric femur fracture with superior displacements and apex angulation. Upon evaluation vital signs were stable. Laboratory workup revealed no leukocytosis ,stable hemoglobin and hematocrit. Stable electrolytes and renal parameters. Patient was admitted for further management CONSULTANTS: pulmonary Dr. Syed orthopedic surgery Dr. Segovia [facility] COURSE: Patient admitted to medical surgical floor. Orthopedic surgery consult was requested. Per orthopedic surgeon, practically nonambulatory patient had a displaced femoral neck fracture. Per surgeon , patient was not a good candidate for any type of hemiarthroplasty , given high risk of dislocation ,infection, and complication. Surgeon recommended conservative management, given the patient was basically bedbound. Pain management was addressed. Pain was controlled. Blood pressure was managed with NICK inhibitor and remained stable. Lipid panel was stable. Blood sugar was managed with sliding scale of insulin. Aricept was continued. Eyedrops for glaucoma were continued. Pulse oximetry was stable on room air . No evidence of respiratory distress . Supportive care provided. Bowel regimen instituted. Since no surgical intervention was recommended by surgeon , patient was stable for discharge to retirement facility for conservative management . Follow-up with x-ray Left hip . Continue with adequate pain management. Due to rapid and unexpected improvement in patient condition, patient was discharged in 1 day. FINAL DIAGNOSES: Left intertrochanteric displaced femur fracture Hypertension Diabetes mellitus type 2 Cerebrovascular disease with history of CVA Alzheimer's dementia Schizophrenia Glaucoma. DISCHARGE MEDICATIONS: See Medication Reconciliation list. DISCHARGE INSTRUCTIONS: Patient was discharged to the retirement facility. Follow up with medical doctor at the facility. I have been assigned to dictate discharge summary for this account. I was not involved in the patient's management. Tia Madden NP Jan 22, 2019 11:40
--- NOTE | 2019-01-22 16:33 | Diagnostic Imaging Report ---
Indications: Left hip pain Findings: Two views of the left hip were obtained. There is a severe fracture of the left proximal femur. This appears to involve the intertrochanteric region but the fracture is not well demonstrated on this examination. There is moderate displacement present. The bones are osteopenic. IMPRESSION: Acute moderately displaced fracture of the left hip probably intertrochanteric but not well demonstrated
--- NOTE | 2019-01-22 16:33 | Diagnostic Imaging Report ---
Indication: Dyspnea Comparison: None A single view chest radiograph was obtained. Findings: Cardiomediastinal appearance is within normal limits for age. The lungs are clear. Pulmonary vascularity is appropriate. The diaphragmatic contour is smooth and costophrenic angles are sharp. No pleural effusions are identified. The bones are osteopenic. Impression: No acute findings
--- NOTE | 2019-01-22 19:45 | Progress Note ---
DATE: 01/20/2019 SUBJECTIVE: The patient has agitation overnight, but overall, he is doing relatively well. No additional issues. PHYSICAL EXAMINATION: VITAL SIGNS: Afebrile. Stable vital signs. EXTREMITIES: Shows moderate ecchymosis in the left hip. Posterior calf is soft. ASSESSMENT: Left displaced femoral neck fracture. DISCUSSION: At this point, he is not weightbearing as I understand it with significant medical comorbidities. What I recommend is to go ahead and treat him conservatively. He is at high-risk of hip dislocation given his noncompliance in psychiatric issues. Additionally, he is basically bedbound and therefore, does not ambulate and therefore, surgery wound not be performed for pain management. In the event that he continues to have pain and failed conservative treatment, what I recommend is Girdlestone procedure. Before doing that, I would just kind of see how he does first with this. Henry Segovia M.D. DR: ANALIA JOB#: [id number] CC:
== END 2019-01-20 21:46 | DRG 340 ==
LOC: EDBD 04:26 → EMR 05:03 → EDBEDREQ 06:54 → 4E 07:10 → 3E 09:32
DX: S72.142A Displaced intertrochanteric fracture of left femur, initial encounter for closed fracture (principal); E11.9 Type 2 diabetes mellitus without complications; G30.9 Alzheimer's disease, unspecified; F20.9 Schizophrenia, unspecified; F02.80 Dementia in other diseases classified elsewhere, unspecified severity, without behavioral disturbance, psychotic disturbance, mood disturbance, and anxiety; X58.XXXA Exposure to other specified factors, initial encounter; Z86.73 Personal history of transient ischemic attack (TIA), and cerebral infarction without residual deficits; E78.00 Pure hypercholesterolemia, unspecified; H40.9 Unspecified glaucoma; R53.81 Other malaise; I10 Essential (primary) hypertension; Z79.84 Long term (current) use of oral hypoglycemic drugs; Z86.718 Personal history of other venous thrombosis and embolism
CPT/HCPCS: 36415; 71045; 73502; 80048; 80053; 80061; 81001; 82248; 82962; 84484; 85025; 85610; 85730; 86850; 86900; 86901; 87081; 93005; 96374; 96375; 99285; J1815; J2405

== ENCOUNTER 2019-09-01 20:06 | Emergency (ER) | payer MEDICAID ==
[~2019-09-01] VITALS: Ht 167.6 cm; Wt 61.2 kg
[~2019-09-01 20:06] MED LIST: ACETAMINOPHEN325 M1 ORAL; ARICEPT10 MG ORAL; BENAZEPRIL HCL5 MG ORAL; COLACE100 MG ORAL; DULCOLAX10 MG RC; FLEET ENEMA133 ML RECTAL; FUROSEMIDE20 M1 ORAL; LATANOPROST 0.7.5 ML OP; METFORMIN HCL500 M1 ORAL; MILK OF MA400 MG/51 ORAL; MULTIVITAMINS1 EAC2 ORAL; OMEGA 3 FATTY ACIDS PO; SENNA TABLET PO; WELCHOL625 MG ORAL
[2019-09-01 20:10] VITALS: BP 98/55
--- NOTE | 2019-09-01 20:10 | NUR ---
ED Nurse Note: Patient was brought in by RA from [facility] due to lower back hemotoma. As per EMS, patient was noted with hematoma with unknown reason and reports no recent injury/fall. Pt has medical history of bipolar, schizo, alzheimer, depression. Pt alert and oriented x3. No SOB. Breathing even and unlabored. Afebrile. VSS.
--- NOTE | 2019-09-01 21:49 | Emergency Room Report ---
History of Present Illness General Chief Complaint: General Complaint Source: Patient, Medical Record, EMS Present Illness HPI Is a 73-year-old assisted patient with history of dementia and multiple medical problem. He is blind. He presents with chief complaint of swelling and hematoma to the left lower back. Is noted this week. Patient had an ultrasound done which showed a 4 x 4 hematoma to the left lower back. Unknown trauma. Patient is contracted. Patient was sent into be evaluated. Patient is getting heparin subcutaneously. He has no complaints. He has no pain. Allergies: Coded Allergies: No Known Allergies (Unverified , 01/19/19) Patient History Past Medical History: see triage record, old chart reviewed Past Surgical History: other Pertinent Family History: none Social History: Denies: smoking Immunizations: other Reviewed Nursing Documentation: PMH: Agreed; PSxH: Agreed Nursing Documentation-PMH Hx Cardiac Problems: No Hx Hypertension: Yes Hx Diabetes: Yes Hx Gastrointestinal Problems: Yes Hx Cerebrovascular Accident: Yes Hx Transient Ischemic Attacks: Yes - with no residual Hx Dementia: Yes Hx Weakness: Yes Review of Systems Eye: Denies: eye pain, blurred vision ENT: Denies: ear pain, nose congestion, throat swelling Respiratory: Denies: cough, shortness of breath Cardiovascular: Denies: chest pain, palpitations Gastrointestinal: Denies: abdominal pain, diarrhea, nausea, vomiting Musculoskeletal: Denies: back pain, joint pain Skin: Denies: rash Neurological: Denies: headache, numbness Endocrine: Denies: increased thirst, increased urine Hematologic/Lymphatic: Denies: easy bruising All Other Systems: negative except mentioned in HPI Physical Exam Vital Signs Date Time Temp Pulse Resp B/P (MAP) Pulse Ox O2 Delivery O2 Flow Rate FiO2 09/01/19 20:06 98.1 56 16 98/55 (69) 95 Room Air Vitals unremarkable Sp02 EP Interpretation: reviewed, normal General Appearance: well appearing, no apparent distress, alert Head: normocephalic, atraumatic ENT: hearing grossly normal, normal pharynx Neck: full range of motion, supple, no meningismus Respiratory: chest non-tender, lungs clear, normal breath sounds Cardiovascular #1: regular rate, rhythm, no murmur Gastrointestinal: normal bowel sounds, non tender, no mass, no organomegaly, no bruit, non-distended Musculoskeletal: back normal, other - Pt is contracted. There is a soft fluctuant 4 x 5 cm mass just left of midline of the mid lumbar spine. Nontender. No redness. Psychiatric: mood/affect normal Medical Decision Making Diagnostic Impression: Primary Impression: Hematoma ER Course This patient presents with a hematoma to the lower back. Most likely secondary to pressure. I see no evidence of any abscess or infection. Hemoglobin stable. I did a abrasion. No pus aspirated. Just a small amount of thick blood. I see no need for I&D. Last Vital Signs Date Time Temp Pulse Resp B/P (MAP) Pulse Ox O2 Delivery O2 Flow Rate FiO2 09/01/19 20:06 98.1 56 16 98/55 (69) 95 Room Air Status: improved Disposition: XFER SNF Condition: Stable Additional Instructions: Follow-up with your doctor in 7 days. Return if symptoms worsen. zO Craig MD Sep 01, 2019 21:49
--- NOTE | 2019-09-01 21:50 | NUR ---
ED Nurse Note: IV line established. Blood collected and sent to lab.
[2019-09-01 22:14] LABS: BASOPHILS % (AUTO) 1.1 % (0.0-2.0); EOSINOPHILS % (AUTO) 2.1 % (0.0-3.0); HEMATOCRIT 37.6 % (42.0-52.0); HEMOGLOBIN 13.4 G/DL (14.2-18.0); LYMPHOCYTES % (AUTO) 23.8 % (20.0-45.0); MEAN CORPUSCULAR VOLUME 90 FL (80-99); MONOCYTES % (AUTO) 6.4 % (1.0-10.0); NEUTROPHILS % (AUTO) 66.6 % (45.0-75.0); PLATELET COUNT 279 K/UL (150-450); RED BLOOD COUNT 4.17 M/UL (4.70-6.10); RED CELL DISTRIBUTION WIDTH 10.5 % (11.6-14.8); WHITE BLOOD COUNT 9.4 K/UL (4.8-10.8)
[2019-09-01 22:22] LABS: ANION GAP 6 mmol/L (5-15); BLOOD UREA NITROGEN 11 mg/dL (7-18); CARBON DIOXIDE 30 MMOL/L (21-32); CHLORIDE 103 MMOL/L (98-107); CREATININE 0.5 MG/DL (0.55-1.30); POTASSIUM 4.6 MMOL/L (3.5-5.1); SODIUM 139 MMOL/L (136-145)
[2019-09-01 23:10] VITALS: BP 110/62
--- NOTE | 2019-09-02 00:15 | NUR ---
ED Nurse Note: Report given to Florentin sosa [facility].
[2019-09-02 00:28] VITALS: BP 96/69
--- NOTE | 2019-09-02 00:28 | NUR ---
ED Nurse Note: Pt cleared by [facility] for discharge to [facility]. Pt accompanied by 2 EMT via [facility]. All medical deviecs such as ID band and IV line removed. Pt is AAO x3. No SOB. Afebrile. VSS. Left with all personal belongings.
== END 2019-09-02 00:28 ==
LOC: EDBD 20:06 → EMR 21:08
DX: S30.0XXA Contusion of lower back and pelvis, initial encounter (principal); H54.7 Unspecified visual loss; F03.90 Unspecified dementia, unspecified severity, without behavioral disturbance, psychotic disturbance, mood disturbance, and anxiety; I10 Essential (primary) hypertension; E11.9 Type 2 diabetes mellitus without complications; R53.1 Weakness; X58.XXXA Exposure to other specified factors, initial encounter; Y93.9 Activity, unspecified; Z86.73 Personal history of transient ischemic attack (TIA), and cerebral infarction without residual deficits
CPT/HCPCS: 36415; 80048; 85025; Z7502; 99283

== ENCOUNTER 2020-02-22 12:20 | Inpatient (IN) | payer MEDICAID ==
[~2020-02-22] VITALS: Ht 165.1 cm; Wt 72.6 kg
[2020-02-22] VITALS (16 sets, daily range): BP systolic 78–132; BP diastolic 51–95
[2020-02-22] MEDS ORDERED: Cefepime HCl 2 GM in D5W 55 ML IVPB ONE (12:30)
[2020-02-22] MEDS ORDERED: Vancomycin 1 GM in NS 275 ML IVPB ONE (12:30)
[2020-02-22] MEDS ORDERED: Acetaminophen 650 MG SUPP RECTAL ONE (12:30)
[2020-02-22] MEDS ORDERED: NORCO 5-325 TA1 EAC1 ORAL (12:31)
[2020-02-22] MEDS ORDERED: NOVOLIN R100 UNIT/1 SUBQ (12:31)
[2020-02-22] MEDS ORDERED: GLUCAGON HC1 MG/1 ML IJ (12:31)
[2020-02-22] MEDS ORDERED: FLUOCINONIDE-E15 G1 TP (12:31)
[2020-02-22] MEDS ORDERED: Lidocaine 1% Plain 30 ml INJ ONE (12:42)
[2020-02-22 13:20] LABS: APPEARANCE,URINE CLEAR; BASOPHILS % (AUTO) 0.4 % (0.0-2.0); BILIRUBIN, URINE 1+ (NEGATIVE); GLUCOSE, URINE (UA) NEGATIVE (NEGATIVE); HEMATOCRIT 33.9 % (42.0-52.0); HEMOGLOBIN 12.1 G/DL (14.2-18.0); KETONES,URINE 1+ (NEGATIVE); LEUKOCYTE ESTERASE ,URINE 1+ (NEGATIVE); LYMPHOCYTES % (AUTO) 12.2 % (20.0-45.0); MEAN CORPUSCULAR VOLUME 86 FL (80-99); MONOCYTES % (AUTO) 4.3 % (1.0-10.0); NEUTROPHILS % (AUTO) 83.1 % (45.0-75.0); NITRITE,URINE NEGATIVE (NEGATIVE); PH,URINE 5 (4.5-8.0); PLATELET COUNT 329 K/UL (150-450); PROTEIN,URINE 3+ (NEGATIVE); RED BLOOD COUNT 3.93 M/UL (4.70-6.10); RED CELL DISTRIBUTION WIDTH 13.1 % (11.6-14.8); UROBILINOGEN,URINE 4 MG/DL (0.0-1.0); WHITE BLOOD COUNT 7.3 K/UL (4.8-10.8)
--- NOTE | 2020-02-22 13:20 | Diagnostic Imaging Report ---
Indication: Cough Technique: One view of the chest Comparison: 01/19/2019 Findings: Inspiration is suboptimal. There is marked elevation of the right hemidiaphragm. There is hazy infiltrate in the right mid to lower lung. There may be some perihilar infiltrate on the left. The pleural spaces are grossly clear. The heart size is upper limits normal. Impression: Hypoventilatory exam Right mid and lower lung infiltrate, likely pneumonia Questionable left perihilar infiltrate as well Other findings as noted
[2020-02-22 13:24] LABS: COLOR,URINE YELLOW
[2020-02-22 13:27] LABS: ANION GAP 10 mmol/L (5-15); BLOOD UREA NITROGEN 20 mg/dL (7-18); CALCIUM 7.8 MG/DL (8.5-10.1); CARBON DIOXIDE 28 MMOL/L (21-32); CHLORIDE 112 MMOL/L (98-107); CREATININE 0.6 MG/DL (0.55-1.30); POTASSIUM 3.6 MMOL/L (3.5-5.1); SODIUM 150 MMOL/L (136-145)
[2020-02-22 13:28] LABS: INR 1.2 (0.9-1.1)
[2020-02-22 13:40] LABS: ALANINE AMINOTRANSFERASE 39 U/L (12-78); ALBUMIN 1.9 G/DL (3.4-5.0); ALBUMIN/GLOBULIN RATIO 0.4 (1.0-2.7); ALKALINE PHOSPHATASE 85 U/L (46-116); ASPARTATE AMINO TRANSFERASE 35 U/L (15-37); BILIRUBIN,TOTAL 1.1 MG/DL (0.2-1.0); CKMB 0.6 NG/ML (0.0-3.6); CREATINE KINASE 118 U/L (26-308)
[2020-02-22 13:58] LABS: BILIRUBIN,DIRECT 0.3 MG/DL (0.0-0.3)
--- NOTE | 2020-02-22 14:07 | Emergency Room Report ---
History of Present Illness General Chief Complaint: Upper Respiratory Illness Source: Patient Present Illness HPI 74-year-old male history of hypertension, diabetes, dementia, presents with fever and respiratory distress x1 day no aggravating relieving factors severity is severe, constant history is limited due to patient's dementia Allergies: Coded Allergies: No Known Allergies (Unverified , 01/19/19) COVID-19 Screening Contact w/high risk pt: Yes Recent Travel to affected area: No Experienced COVID-19 symptoms?: Yes COVID-19 symptoms experienced: Fever (T>100.4F or >38C), Shortness of Breath, Cough Patient History Limited by: medical condition - Dementia Past Medical History: see triage record Reviewed Nursing Documentation: PMH: Agreed; PSxH: Agreed Nursing Documentation-PMH Hx Cardiac Problems: No Hx Hypertension: Yes Hx Diabetes: Yes Hx Gastrointestinal Problems: Yes History Of Psychiatric Problem: Yes - dementia, alzheimer/s disease Hx Cerebrovascular Accident: Yes Hx Transient Ischemic Attacks: Yes - with no residual Hx Dementia: Yes Hx Weakness: Yes Review of Systems All Other Systems: limited - Dementia Physical Exam Vital Signs Date Time Temp Pulse Resp B/P (MAP) Pulse Ox O2 Delivery O2 Flow Rate FiO2 02/22/20 12:16 100.9 69 22 83/51 (62) 98 Nasal Cannula 5.0 02/22/20 13:56 70 Sp02 EP Interpretation: reviewed, abnormal - Hypoxia General Appearance: alert, severe distress, cachetic, Chronically Ill Head: normocephalic, atraumatic Eyes: bilateral eye PERRL, bilateral eye EOMI ENT: uvula midline, dry mucus membranes Neck: supple, thyroid normal, supple/symm/no masses Respiratory: accessory muscle use, rhonchi, chest symmetrical Cardiovascular #1: normal peripheral pulses, regular rate, rhythm, no edema, no gallop, no murmur Gastrointestinal: non tender, soft, no guarding, no rebound Musculoskeletal: normal inspection Neurologic: alert, responsive Skin: no rash, warm/dry Procedures Critical Care Time Critical Care Time Given the critical condition in which the patient arrived, the patient was immediately assessed by myself and the nurse, and cardiac monitoring initiated due to the potential for rapid decompensation of the patient's clinical condition. During the course of the patient's stay, I spent a considerable amount of time at the bedside performing serial re-evaluations of the patient's hemodynamic and clinical status because of the recognized potential threat to life or limb in this condition. I then had a chance to review not only all of the available current laboratory and radiographic studies obtained today, but I also reviewed old records available to me at the time. Additionally, any ancillary information available including doctor of podiatric medicine records were reviewed. Sequential vital signs were obtained. Critical Care time of 70 minutes was performed exclusive of billable procedures. Central Line Central Line : Consent: Emergent Central Line Lumen: triple Maximal Sterile Barrier Tech: yes cap, yes mask, yes sterile gown, yes sterile gloves, yes large sterile sheet, yes hand hygiene, yes chlorhexidine prep Central Line Postion: femoral (R) Complications: none Central Line Post Position: sutured, good blood return Attempts: One Patient Tolerated: Well Complications: None Intubation Intubation : Consent: Emergent Time of Intubation: 13:01 Intubation Method: orotracheal Tube Size (cm): 7.5 Medications: Etomidate, Rocuronium Intubation Complications: no complications Post Intubation Xray: Yes Progress/Xray Impression: Endotracheal tube well-seated Attempts: One Patient Tolerated: Well Complications: None Medical Decision Making Diagnostic Impression: Primary Impression: Suspected COVID-19 virus infection Additional Impressions: Hypotension Qualified Codes: I95.9 - Hypotension, unspecified Respiratory failure with hypoxia Qualified Codes: J96.01 - Acute respiratory failure with hypoxia ER Course 74-year-old male presents with acute respiratory failure, hypoxia, hypotension concerning for COVID exposure versus pneumonia versus sepsis Patient becoming hypotensive requiring a central line, patient was resuscitated with liters of fluid, norepinephrine was started, cefepime, vancomycin was started for broad-spectrum coverage Patient improved with norepinephrine administration, patient required emergent intubation due to hypoxia requiring nonrebreather Patient admitted to ICU with multiple re-evaluations to Dr. Nunez under [facility] Laboratory Tests Test 02/22/20 12:08 02/22/20 12:28 White Blood Count 7.3 K/UL (4.8-10.8) Red Blood Count 3.93 M/UL (4.70-6.10) L Hemoglobin 12.1 G/DL (14.2-18.0) L Hematocrit 33.9 % (42.0-52.0) L Mean Corpuscular Volume 86 FL (80-99) Mean Corpuscular Hemoglobin 30.7 PG (27.0-31.0) Mean Corpuscular Hemoglobin Concent 35.6 G/DL (32.0-36.0) Red Cell Distribution Width 13.1 % (11.6-14.8) Platelet Count 329 K/UL (150-450) Mean Platelet Volume 4.9 FL (6.5-10.1) L Neutrophils (%) (Auto) 83.1 % (45.0-75.0) H Lymphocytes (%) (Auto) 12.2 % (20.0-45.0) L Monocytes (%) (Auto) 4.3 % (1.0-10.0) Eosinophils (%) (Auto) 0.0 % (0.0-3.0) Basophils (%) (Auto) 0.4 % (0.0-2.0) Prothrombin Time 12.3 SEC (9.30-11.50) H Prothrombin Time INR 1.2 (0.9-1.1) H Activated Partial Thromboplast Time 40 SEC (23-33) H D-Dimer 1.57 mg/L FEU (0.00-0.49) H Urine Color Yellow Urine Appearance Clear Urine pH 5 (4.5-8.0) Urine Specific [place] 1.015 (1.005-1.035) Urine Protein 3+ (NEGATIVE) H Urine Glucose (UA) Negative (NEGATIVE) Urine Ketones 1+ (NEGATIVE) H Urine Blood 1+ (NEGATIVE) H Urine Nitrite Negative (NEGATIVE) Urine Bilirubin 1+ (NEGATIVE) H Urine Ictotest Negative (NEGATIVE) Urine Urobilinogen 4 MG/DL (0.0-1.0) H Urine Leukocyte Esterase 1+ (NEGATIVE) H Urine RBC 0-2 /HPF (0 - 0) H Urine WBC 2-4 /HPF (0 - 0) Urine Squamous Epithelial Cells Occasional /LPF Urine Bacteria Few /HPF (NONE) Urine Mucus Few /LPF (NONE/OCC) H Sodium Level 150 MMOL/L (136-145) H Potassium Level 3.6 MMOL/L (3.5-5.1) Chloride Level 112 MMOL/L (98-107) H Carbon Dioxide Level 28 MMOL/L (21-32) Anion Gap 10 mmol/L (5-15) Blood Urea Nitrogen 20 mg/dL (7-18) H Creatinine 0.6 MG/DL (0.55-1.30) Estimated Glomerular Filtration Rate > 60 mL/min (>60) Glucose Level 140 MG/DL (74-106) H Lactic Acid Level 2.80 mmol/L (0.4-2.0) H Calcium Level 7.8 MG/DL (8.5-10.1) L Total Bilirubin 1.1 MG/DL (0.2-1.0) H Direct Bilirubin 0.3 MG/DL (0.0-0.3) Aspartate Amino Transferase (AST) 35 U/L (15-37) Alanine Aminotransferase (ALT) 39 U/L (12-78) Alkaline Phosphatase 85 U/L (46-116) Total Creatine Kinase 118 U/L (26-308) Creatine Kinase MB 0.6 NG/ML (0.0-3.6) Creatine Kinase MB Relative Index 0.5 Troponin I 0.000 ng/mL (0.000-0.056) Pro-B-Type Natriuretic Peptide 2269 pg/mL (0-125) H Total Protein 6.6 G/DL (6.4-8.2) Albumin 1.9 G/DL (3.4-5.0) L Globulin 4.7 g/dL Albumin/Globulin Ratio 0.4 (1.0-2.7) L Arterial Blood pH 7.462 (7.350-7.450) Arterial Blood Partial Pressure CO2 34.4 mmHg (35.0-45.0) L Arterial Blood Partial Pressure O2 49.1 mmHg (75.0-100.0) Arterial Blood HCO3 24.0 mmol/L (22.0-26.0) Arterial Blood Oxygen Saturation 84.6 % (95-100) *L Arterial Blood Base Excess 0.6 (-2-2) Kuldeep Test Positive EKG Diagnostic Results EKG Time: 13:59 EP Interpretation: Normal sinus rhythm, rate 66, QTc 438, no acute escalations , normal axis Rhythm Strip Diag. Results Rhythm Strip Time: 14:13 EP Interpretation: yes Rate: 65 Rhythm: NSR, no PVC's, no ectopy Chest X-Ray Diagnostic Results Chest X-Ray Diagnostic Results : Chest X-Ray Ordered: Yes # of Views/Limited/Complete: 1 View Indication: Shortness of Breath EP Interpretation: Yes Interpretation: other - Bilateral infiltrates consistent with COVID Impression: Other - Bilateral infiltrates consistent with COVID Electronically Signed by: Porfirio Valenzuela MD Last Vital Signs Date Time Temp Pulse Resp B/P (MAP) Pulse Ox O2 Delivery O2 Flow Rate FiO2 02/22/20 13:56 61 20 70 02/22/20 12:16 100.9 83/51 (62) 98 Nasal Cannula 5.0 Disposition: ADMITTED INPATIENT Condition: Critical Referrals: TRAE SWENSON (PCP) Evaluation Current Stage of Sepsis: Sepsis Possible Source: Pulmonary Focused Exam Allergies: Coded Allergies: No Known Allergies (Unverified , 01/19/19) Date Exam Occurred: Feb 22, 2020 Time Exam Occurred: 14:15 Laboratory Studies Laboratory Tests Test 02/22/20 12:08 02/22/20 12:28 White Blood Count 7.3 K/UL (4.8-10.8) Red Blood Count 3.93 M/UL (4.70-6.10) L Hemoglobin 12.1 G/DL (14.2-18.0) L Hematocrit 33.9 % (42.0-52.0) L Mean Corpuscular Volume 86 FL (80-99) Mean Corpuscular Hemoglobin 30.7 PG (27.0-31.0) Mean Corpuscular Hemoglobin Concent 35.6 G/DL (32.0-36.0) Red Cell Distribution Width 13.1 % (11.6-14.8) Platelet Count 329 K/UL (150-450) Mean Platelet Volume 4.9 FL (6.5-10.1) L Neutrophils (%) (Auto) 83.1 % (45.0-75.0) H Lymphocytes (%) (Auto) 12.2 % (20.0-45.0) L Monocytes (%) (Auto) 4.3 % (1.0-10.0) Eosinophils (%) (Auto) 0.0 % (0.0-3.0) Basophils (%) (Auto) 0.4 % (0.0-2.0) Prothrombin Time 12.3 SEC (9.30-11.50) H Prothromb Time International Ratio 1.2 (0.9-1.1) H Activated Partial Thromboplast Time 40 SEC (23-33) H D-Dimer 1.57 mg/L FEU (0.00-0.49) H Urine Color Yellow Urine Appearance Clear Urine pH 5 (4.5-8.0) Urine Specific [place] 1.015 (1.005-1.035) Urine Protein 3+ (NEGATIVE) H Urine Glucose (UA) Negative (NEGATIVE) Urine Ketones 1+ (NEGATIVE) H Urine Blood 1+ (NEGATIVE) H Urine Nitrite Negative (NEGATIVE) Urine Bilirubin 1+ (NEGATIVE) H Urine Ictotest Negative (NEGATIVE) Urine Urobilinogen 4 MG/DL (0.0-1.0) H Urine Leukocyte Esterase 1+ (NEGATIVE) H Urine RBC 0-2 /HPF (0 - 0) H Urine WBC 2-4 /HPF (0 - 0) Urine Squamous Epithelial Cells Occasional /LPF Urine Bacteria Few /HPF (NONE) Urine Mucus Few /LPF (NONE/OCC) H Sodium Level 150 MMOL/L (136-145) H Potassium Level 3.6 MMOL/L (3.5-5.1) Chloride Level 112 MMOL/L (98-107) H Carbon Dioxide Level 28 MMOL/L (21-32) Anion Gap 10 mmol/L (5-15) Blood Urea Nitrogen 20 mg/dL (7-18) H Creatinine 0.6 MG/DL (0.55-1.30) Estimat Glomerular Filtration Rate > 60 mL/min (>60) Glucose Level 140 MG/DL (74-106) H Lactic Acid Level 2.80 mmol/L (0.4-2.0) H Calcium Level 7.8 MG/DL (8.5-10.1) L Total Bilirubin 1.1 MG/DL (0.2-1.0) H Direct Bilirubin 0.3 MG/DL (0.0-0.3) Aspartate Amino Transf (AST/SGOT) 35 U/L (15-37) Alanine Aminotransferase (ALT/SGPT) 39 U/L (12-78) Alkaline Phosphatase 85 U/L (46-116) Total Creatine Kinase 118 U/L (26-308) Creatine Kinase MB 0.6 NG/ML (0.0-3.6) Creatine Kinase MB Relative Index 0.5 Troponin I 0.000 ng/mL (0.000-0.056) Pro-B-Type Natriuretic Peptide 2269 pg/mL (0-125) H Total Protein 6.6 G/DL (6.4-8.2) Albumin 1.9 G/DL (3.4-5.0) L Globulin 4.7 g/dL Albumin/Globulin Ratio 0.4 (1.0-2.7) L Arterial Blood pH 7.462 (7.350-7.450) Arterial Blood Partial Pressure CO2 34.4 mmHg (35.0-45.0) L Arterial Blood Partial Pressure O2 49.1 mmHg (75.0-100.0) Arterial Blood HCO3 24.0 mmol/L (22.0-26.0) Arterial Blood Oxygen Saturation 84.6 % (95-100) *L Arterial Blood Base Excess 0.6 (-2-2) Kuldeep Test Positive Vital Signs Last 24 Hour Vital Signs Date Time Temp Pulse Resp B/P (MAP) Pulse Ox O2 Delivery O2 Flow Rate FiO2 02/22/20 13:56 61 20 70 02/22/20 12:16 100.9 69 22 83/51 (62) 98 Nasal Cannula 5.0 Respiratory Exam: Rhonchi Cardiovascular Exam: RRR, S1, S2 Capillary Refill: Less Than 2 Seconds Peripheral Pulse: Strong Pulse Location: Radial Porfirio Valenzuela MD Feb 22, 2020 14:07
[2020-02-22] MEDS ORDERED: Acetaminophen 650 MG SUPP RECTAL PRN (14:15)
[2020-02-22] MEDS ORDERED: DiphenhydrAMINE 25mg Tab ORAL PRN (14:15)
[2020-02-22] MEDS: propofoL 1,000mg/100ml 100 ML IV SCH (14:19)
--- NOTE | 2020-02-22 14:23 | History and Physical ---
History of Present Illness General Reason for Hospitalization: Upper Respiratory Illness Present Illness HPI 74 y/o M from [place], PMH HTN, DMT2, dementia, Alzheimers dx, h/o CVA/TIA, h/o DVT, schizophrenia who presents for Fever. Pt had respiratory distress and was intubated in ED, history limited and obtained via chart review and speaking w/ nurse from [place]. Per Nurse, pt at / is AO sometimes to self and place, but has severe dementia requiring assistance w/all ADLs, is wheelchair bound. Pt had an acute change in mental status, was more confused this AM and noted ot have fever 100.3 at the facily for which pt was sent to the ED for further evaluation. Per nurse, no reports of cough, CP, SOB, abd pain, diarrhea noted. No other residents at the [place] facility have been tested positive for COVID at this time. In the ED, pt found to be septic, Tm 100.9, RR22, WBC 7.3, Lactic acid 2.8, and ABG revealed acute hypoxic respiratory failure. Pt was intubated and will be admitted to ICU for acute hypoxic respiratory failure and pending COVID r/o. PMH: HTN, DMT2, dementia, Alzheimers dx, h/o CVA/TIA, h/o DVT, schizophrenia, bipolar FH: reviewed, unable to obtain Sx: unable to obtain SH: lives in [place], [facility], has been long time resident >5 yrs Allergies: NKDA Allergies: Coded Allergies: No Known Allergies (Unverified , 01/19/19) COVID-19 Screening Contact w/high risk pt: Yes Recent Travel to affected area: No Experienced COVID-19 symptoms?: Yes COVID-19 symptoms experienced: Fever (T>100.4F or >38C), Shortness of Breath, Cough Medication History Scheduled Benazepril Hcl (Benazepril Hcl), 5 MG ORAL DAILY, (Reported) Colesevelam Hcl (Welchol), 1,875 MG ORAL TWICE A DAY, (Reported) Docusate Sodium* (Colace*), 100 MG ORAL DAILY, (Reported) Donepezil Hcl* (Aricept*), 10 MG ORAL BEDTIME, (Reported) Furosemide* (Lasix*), 20 MG ORAL TWICE A DAY, (Reported) Insulin Regular, Human* (Novolin R*), 0 SUBQ .SLIDING SCALE, (Reported) Latanoprost/Pf (Latanoprost 0.005% Eye Drop), 1 DRP OP DAILY, (Reported) Metformin Hcl* (Metformin Hcl*), 500 MG ORAL THREE TIMES A DAY, (Reported) Multivitamins* (Multivitamins*), 1 TAB ORAL DAILY, (Reported) [[place] Tablet], 2 TAB PO PRN, (Reported) Scheduled PRN Acetaminophen* (Acetaminophen 325MG Tablet*), 650 MG ORAL Q4H PRN for Mild Pain/ Temp > 100.5, (Reported) Bisacodyl (Dulcolax), 10 MG RC DAILY PRN for Constipation, (Reported) Glucagon HCl (glucagon HCL), 1 MG IJ for Hypoglycemia, (Reported) Hydrocodone Bit/Acetaminophen 5-325* ([place] 5-325 Tablet*), 1 TAB ORAL Q4H PRN for For Pain, (Reported) Magnesium Hydroxide* (Milk Of Magnesia*), 30 ML ORAL QHS PRN for Constipation, ( Reported) Na Phos,M-B/Na Phos,Di-Ba* (Fleet Enema*), 133 ML RECTAL EVERY 2 DAYS PRN for Constipation, (Reported) Miscellaneous Medications Fluocinonide/Emollient (Fluocinonide-E 0.05% Cream), 15 GM TP, (Reported) Discontinued Medications [[place] 3 Fatty Acids], 1 MG PO TWICE A DAY, (Reported) Discontinued Reason: MD discontinued med Patient History Healthcare decision maker Resuscitation status Advanced Directive on File Review of Systems ROS Narrative Unable to obtain, patient is intubated/sedated. Physical Exam Physical Exam Narrative General: intubated, sedated HEENT: NCAT, dry MM, ETT in place CV: RRR, no murmurs, rubs, or gallops Pulm: Good airway movement in lungs b/l GI: Soft, nontender, nondistended, bowel sounds present Ext: No lower extremity edema bilaterally Skin: no rashes lesions or ulcers Msk: Joints symmetrical in upper extremity and lower extremity bilaterally, no joint swelling. Neuro: exam limited due to intubated/sedated Last 24 Hour Vital Signs Date Time Temp Pulse Resp B/P (MAP) Pulse Ox O2 Delivery O2 Flow Rate FiO2 02/22/20 13:56 61 20 70 02/22/20 12:16 100.9 69 22 83/51 (62) 98 Nasal Cannula 5.0 Laboratory Tests Test 02/22/20 12:08 02/22/20 12:28 White Blood Count 7.3 K/UL (4.8-10.8) Red Blood Count 3.93 M/UL (4.70-6.10) L Hemoglobin 12.1 G/DL (14.2-18.0) L Hematocrit 33.9 % (42.0-52.0) L Mean Corpuscular Volume 86 FL (80-99) Mean Corpuscular Hemoglobin 30.7 PG (27.0-31.0) Mean Corpuscular Hemoglobin Concent 35.6 G/DL (32.0-36.0) Red Cell Distribution Width 13.1 % (11.6-14.8) Platelet Count 329 K/UL (150-450) Mean Platelet Volume 4.9 FL (6.5-10.1) L Neutrophils (%) (Auto) 83.1 % (45.0-75.0) H Lymphocytes (%) (Auto) 12.2 % (20.0-45.0) L Monocytes (%) (Auto) 4.3 % (1.0-10.0) Eosinophils (%) (Auto) 0.0 % (0.0-3.0) Basophils (%) (Auto) 0.4 % (0.0-2.0) Prothrombin Time 12.3 SEC (9.30-11.50) H Prothromb Time International Ratio 1.2 (0.9-1.1) H Activated Partial Thromboplast Time 40 SEC (23-33) H D-Dimer 1.57 mg/L FEU (0.00-0.49) H Urine Color Yellow Urine Appearance Clear Urine pH 5 (4.5-8.0) Urine Specific [place] 1.015 (1.005-1.035) Urine Protein 3+ (NEGATIVE) H Urine Glucose (UA) Negative (NEGATIVE) Urine Ketones 1+ (NEGATIVE) H Urine Blood 1+ (NEGATIVE) H Urine Nitrite Negative (NEGATIVE) Urine Bilirubin 1+ (NEGATIVE) H Urine Ictotest Negative (NEGATIVE) Urine Urobilinogen 4 MG/DL (0.0-1.0) H Urine Leukocyte Esterase 1+ (NEGATIVE) H Urine RBC 0-2 /HPF (0 - 0) H Urine WBC 2-4 /HPF (0 - 0) Urine Squamous Epithelial Cells Occasional /LPF Urine Bacteria Few /HPF (NONE) Urine Mucus Few /LPF (NONE/OCC) H Sodium Level 150 MMOL/L (136-145) H Potassium Level 3.6 MMOL/L (3.5-5.1) Chloride Level 112 MMOL/L (98-107) H Carbon Dioxide Level 28 MMOL/L (21-32) Anion Gap 10 mmol/L (5-15) Blood Urea Nitrogen 20 mg/dL (7-18) H Creatinine 0.6 MG/DL (0.55-1.30) Estimat Glomerular Filtration Rate > 60 mL/min (>60) Glucose Level 140 MG/DL (74-106) H Lactic Acid Level 2.80 mmol/L (0.4-2.0) H Calcium Level 7.8 MG/DL (8.5-10.1) L Total Bilirubin 1.1 MG/DL (0.2-1.0) H Direct Bilirubin 0.3 MG/DL (0.0-0.3) Aspartate Amino Transf (AST/SGOT) 35 U/L (15-37) Alanine Aminotransferase (ALT/SGPT) 39 U/L (12-78) Alkaline Phosphatase 85 U/L (46-116) Total Creatine Kinase 118 U/L (26-308) Creatine Kinase MB 0.6 NG/ML (0.0-3.6) Creatine Kinase MB Relative Index 0.5 Troponin I 0.000 ng/mL (0.000-0.056) Pro-B-Type Natriuretic Peptide 2269 pg/mL (0-125) H Total Protein 6.6 G/DL (6.4-8.2) Albumin 1.9 G/DL (3.4-5.0) L Globulin 4.7 g/dL Albumin/Globulin Ratio 0.4 (1.0-2.7) L Arterial Blood pH 7.462 (7.350-7.450) Arterial Blood Partial Pressure CO2 34.4 mmHg (35.0-45.0) L Arterial Blood Partial Pressure O2 49.1 mmHg (75.0-100.0) Arterial Blood HCO3 24.0 mmol/L (22.0-26.0) Arterial Blood Oxygen Saturation 84.6 % (95-100) *L Arterial Blood Base Excess 0.6 (-2-2) Kuldeep Test Positive Height (Feet): 5 Height (Inches): 5.00 Weight (Pounds): 140 Medications Current Medications Medications (Trade) Dose Ordered Sig/Cirilo Route PRN Reason Start Time Stop Time Status Last Admin Dose Admin Acetaminophen (Tylenol) 650 mg Q4H PRN ORAL Fever 02/22/20 14:15 03/23/20 14:14 Acetaminophen (Tylenol) 650 mg Q4H PRN ORAL Mild Pain (Pain Scale 1-3) 02/22/20 14:15 03/23/20 14:14 Acetaminophen (Tylenol) 650 mg Q4H PRN RECTAL FEVER 02/22/20 14:15 03/23/20 14:14 Acetaminophen (Tylenol) 650 mg Q4H PRN RECTAL Mild Pain (Pain Scale 1-3) 02/22/20 14:15 03/23/20 14:14 Dextrose (Dextrose 50%) 25 ml Q30M PRN IV Hypoglycemia 02/22/20 14:15 05/22/20 14:14 UNV Dextrose (Dextrose 50%) 50 ml Q30M PRN IV Hypoglycemia 02/22/20 14:15 05/22/20 14:14 Diphenhydramine HCl (Benadryl) 25 mg Q6H PRN ORAL Itching/Pruritis 02/22/20 14:15 03/23/20 14:14 Enoxaparin Sodium (Lovenox) 40 mg Q24H SUBQ 02/22/20 14:15 05/22/20 14:14 UNV Insulin Aspart (NovoLOG) BEFORE MEALS AND HS SUBQ 02/22/20 16:30 05/22/20 16:29 UNV Norepinephrine Bitartrate 4 mg/ Dextrose 250 ml @ 0 mls/hr Q24H IV 02/22/20 13:15 03/23/20 13:14 Pantoprazole (Protonix) 40 mg DAILY ORAL 02/23/20 09:00 03/24/20 08:59 Propofol 100 ml @ 0 mls/hr Q24H IV 02/22/20 14:15 02/24/20 14:14 Assessment/Plan Assessment/Plan: 74 y/o M from [place], H HTN, DMT2, dementia, Alzheimers dx, h/o CVA/TIA, h/o DVT, schizophrenia who presents for Fever. In the ED, pt found to be septic, Tm 100.9 , RR22, WBC 7.3, Lactic acid 2.8, and ABG revealed acute hypoxic respiratory failure. Pt was intubated and will be admitted to ICU for acute hypoxic respiratory failure and pending COVID r/o. #Septic shock 2/2 #Acute Hypoxic Respiratory Failure #HCAP #Suspect COVID #Lactic Acidosis -admit to ICU level care -appreciate Pulm/CCU management -pt intubated in ED, 02/21 -vent management per CCU team/Pulm, wean as tolerated -Cont. COVID isolation protocol -CXR reviewed -COVID PCR pending -elevated d-dimer and BNP likely 2/2 above -EKG NSR, HR 66, TWi V1-V4 -cont. norepi, wean as tolerated -propofol for sedation -cefepime/vanc given in ED -start vanc/zosyn for now -BCx, Scx, UCx pending -echo ordered -ID consulted, discussed case w/ID, Dr. Estrada -Pulm, Dr. Bland, consulted, recs appreciated #Hypernatremia -likely 2/2 dehydration -careful w/IVF given BNP elevated -daily BMPs -nephro consulted, recs appreciated #Type 2 DM -holding home metformin -ISS sensitive, accuchecks q6h #HTN -holding home bp meds given septic shock -holding Lasix 20 mg q daily, benazepril 5 mg q daily #Alzheimer disease #Dementia #Schizophrenia #Bipolar dx -reviewed MAR from [place], no home meds for schizophrenia/bipolar dx noted -holding home aricept given clinical picture DVT PPx: lovenox Time spent: 72 mins, 45 mins spent on coordination of care, discussed case w/ER physician, APPLICATION DBA, intermediate RN, and specialists Pulm, and ID. Time of note may not reflect time of encounter. Gosia Nunez M.D. Feb 22, 2020 14:23
[2020-02-22] MEDS ORDERED: Piperacillin/Tazobactam 4.5 GM in NS 110 ML IVPB SCH (14:29)
[2020-02-22] MEDS ORDERED: Vancomycin 1.5gm/NS Premix 275 ML IVPB SCH (14:30)
--- NOTE | 2020-02-22 15:05 | Diagnostic Imaging Report ---
Indication: Chest pain Technique: One view of the chest Comparison: 02/22/2020 Findings: Interim endotracheal intubation, endotracheal tube tip projecting 2 cm above the holly. Interim worsening of infiltrates in the right perihilar region, left suprahilar region, and left lung base. The heart size is normal. There is some atelectasis at the right lung base. Impression: Artifact of endotracheal dictation Worsening bilateral infiltrates, likely pneumonia
--- NOTE | 2020-02-22 16:19 | Cardiac Electrophysiology PN ---
Subjective Subjective [id number] Objective Last 24 Hour Vital Signs Date Time Temp Pulse Resp B/P (MAP) Pulse Ox O2 Delivery O2 Flow Rate FiO2 02/22/20 15:44 98.9 60 20 118/75 98 Mechanical Ventilator 70 02/22/20 15:25 63 20 70 02/22/20 14:34 20 113/69 Mechanical Ventilator 02/22/20 14:25 89/53 02/22/20 14:19 20 122/74 Mechanical Ventilator 02/22/20 14:19 20 122/74 Mechanical Ventilator 02/22/20 13:56 61 20 70 02/22/20 13:35 102/63 02/22/20 13:30 62 20 Non-Rebreather 15.0 02/22/20 13:25 82/54 02/22/20 13:20 62 20 92/73 97 Non-Rebreather 15.0 02/22/20 12:20 100.9 64 22 83/51 90 Nasal Cannula 5.0 02/22/20 12:16 100.9 69 22 83/51 (62) 98 Nasal Cannula 5.0 Laboratory Tests Test 02/22/20 12:08 02/22/20 12:28 02/22/20 15:05 White Blood Count 7.3 K/UL (4.8-10.8) Red Blood Count 3.93 M/UL (4.70-6.10) L Hemoglobin 12.1 G/DL (14.2-18.0) L Hematocrit 33.9 % (42.0-52.0) L Mean Corpuscular Volume 86 FL (80-99) Mean Corpuscular Hemoglobin 30.7 PG (27.0-31.0) Mean Corpuscular Hemoglobin Concent 35.6 G/DL (32.0-36.0) Red Cell Distribution Width 13.1 % (11.6-14.8) Platelet Count 329 K/UL (150-450) Mean Platelet Volume 4.9 FL (6.5-10.1) L Neutrophils (%) (Auto) 83.1 % (45.0-75.0) H Lymphocytes (%) (Auto) 12.2 % (20.0-45.0) L Monocytes (%) (Auto) 4.3 % (1.0-10.0) Eosinophils (%) (Auto) 0.0 % (0.0-3.0) Basophils (%) (Auto) 0.4 % (0.0-2.0) Prothrombin Time 12.3 SEC (9.30-11.50) H Prothromb Time International Ratio 1.2 (0.9-1.1) H Activated Partial Thromboplast Time 40 SEC (23-33) H D-Dimer 1.57 mg/L FEU (0.00-0.49) H Urine Color Yellow Urine Appearance Clear Urine pH 5 (4.5-8.0) Urine Specific [place] 1.015 (1.005-1.035) Urine Protein 3+ (NEGATIVE) H Urine Glucose (UA) Negative (NEGATIVE) Urine Ketones 1+ (NEGATIVE) H Urine Blood 1+ (NEGATIVE) H Urine Nitrite Negative (NEGATIVE) Urine Bilirubin 1+ (NEGATIVE) H Urine Ictotest Negative (NEGATIVE) Urine Urobilinogen 4 MG/DL (0.0-1.0) H Urine Leukocyte Esterase 1+ (NEGATIVE) H Urine RBC 0-2 /HPF (0 - 0) H Urine WBC 2-4 /HPF (0 - 0) Urine Squamous Epithelial Cells Occasional /LPF Urine Bacteria Few /HPF (NONE) Urine Mucus Few /LPF (NONE/OCC) H Sodium Level 150 MMOL/L (136-145) H Potassium Level 3.6 MMOL/L (3.5-5.1) Chloride Level 112 MMOL/L (98-107) H Carbon Dioxide Level 28 MMOL/L (21-32) Anion Gap 10 mmol/L (5-15) Blood Urea Nitrogen 20 mg/dL (7-18) H Creatinine 0.6 MG/DL (0.55-1.30) Estimat Glomerular Filtration Rate > 60 mL/min (>60) Glucose Level 140 MG/DL (74-106) H Lactic Acid Level 2.80 mmol/L (0.4-2.0) H 2.60 mmol/L (0.66-2.22) H Calcium Level 7.8 MG/DL (8.5-10.1) L Total Bilirubin 1.1 MG/DL (0.2-1.0) H Direct Bilirubin 0.3 MG/DL (0.0-0.3) Aspartate Amino Transf (AST/SGOT) 35 U/L (15-37) Alanine Aminotransferase (ALT/SGPT) 39 U/L (12-78) Alkaline Phosphatase 85 U/L (46-116) Total Creatine Kinase 118 U/L (26-308) Creatine Kinase MB 0.6 NG/ML (0.0-3.6) Creatine Kinase MB Relative Index 0.5 Troponin I 0.000 ng/mL (0.000-0.056) Pro-B-Type Natriuretic Peptide 2269 pg/mL (0-125) H Total Protein 6.6 G/DL (6.4-8.2) Albumin 1.9 G/DL (3.4-5.0) L Globulin 4.7 g/dL Albumin/Globulin Ratio 0.4 (1.0-2.7) L Arterial Blood pH 7.462 (7.350-7.450) Arterial Blood Partial Pressure CO2 34.4 mmHg (35.0-45.0) L Arterial Blood Partial Pressure O2 49.1 mmHg (75.0-100.0) Arterial Blood HCO3 24.0 mmol/L (22.0-26.0) Arterial Blood Oxygen Saturation 84.6 % (95-100) *L Arterial Blood Base Excess 0.6 (-2-2) Kuldeep Test Positive Deric Garcia MD Feb 22, 2020 16:19
[2020-02-22] MEDS ORDERED: NovoLOG Insulin Flexpen SUBQ SCH ×2 (16:30→18:00)
[2020-02-22] MEDS: Enoxaparin 40mg Inj SUBQ SCH (16:57)
--- NOTE | 2020-02-22 20:20 | Consultation ---
History of Present Illness General Chief Complaint: Upper Respiratory Illness Reason for Consultation: Hypernatremia, hyperchloremia Present Illness HPI This is a 74 year old malew from [place], PMH HTN, DMT2, dementia, Alzheimers dx, h/ o CVA/TIA, h/o DVT, schizophrenia who presents for Fever. Pt had respiratory distress and was intubated in ED, history limited and obtained via chart review and speaking w/nurse from [place]. Per Nurse, pt at / is AO sometimes to self and place, but has severe dementia requiring assistance w/all ADLs, is wheelchair bound. Pt had an acute change in mental status, was more confused this AM and noted ot have fever 100.3 at the facily for which pt was sent to the ED for further evaluation. Per nurse, no reports of cough, CP, SOB, abd pain, diarrhea noted. No other residents at the [place] facility have been tested positive for COVID at this time. In the ED, pt found to be septic, Tm 100.9, RR22, WBC 7.3, Lactic acid 2.8, and ABG revealed acute hypoxic respiratory failure. Pt was intubated and will be admitted to ICU for acute hypoxic respiratory failure and pending COVID r/o. PMH: HTN, DMT2, dementia, Alzheimers dx, h/o CVA/TIA, h/o DVT, schizophrenia, bipolar FH: reviewed, unable to obtain Sx: unable to obtain SH: lives in [facility], has been long time resident >5 yrs Allergies: NKDAT Allergies: Coded Allergies: No Known Allergies (Unverified , 01/19/19) Medication History Scheduled Benazepril Hcl (Benazepril Hcl), 5 MG ORAL DAILY, (Reported) Colesevelam Hcl (Welchol), 1,875 MG ORAL TWICE A DAY, (Reported) Docusate Sodium* (Colace*), 100 MG ORAL DAILY, (Reported) Donepezil Hcl* (Aricept*), 10 MG ORAL BEDTIME, (Reported) Furosemide* (Lasix*), 20 MG ORAL TWICE A DAY, (Reported) Insulin Regular, Human* (Novolin R*), 0 SUBQ .SLIDING SCALE, (Reported) Latanoprost/Pf (Latanoprost 0.005% Eye Drop), 1 DRP OP DAILY, (Reported) Metformin Hcl* (Metformin Hcl*), 500 MG ORAL THREE TIMES A DAY, (Reported) Multivitamins* (Multivitamins*), 1 TAB ORAL DAILY, (Reported) [Senna Tablet], 2 TAB PO PRN, (Reported) Scheduled PRN Acetaminophen* (Acetaminophen 325MG Tablet*), 650 MG ORAL Q4H PRN for Mild Pain/ Temp > 100.5, (Reported) Bisacodyl (Dulcolax), 10 MG RC DAILY PRN for Constipation, (Reported) Glucagon HCl (glucagon HCL), 1 MG IJ for Hypoglycemia, (Reported) Hydrocodone Bit/Acetaminophen 5-325* ([place] 5-325 Tablet*), 1 TAB ORAL Q4H PRN for For Pain, (Reported) Magnesium Hydroxide* (Milk Of Magnesia*), 30 ML ORAL QHS PRN for Constipation, ( Reported) Na Phos,M-B/Na Phos,Di-Ba* (Fleet Enema*), 133 ML RECTAL EVERY 2 DAYS PRN for Constipation, (Reported) Miscellaneous Medications Fluocinonide/Emollient (Fluocinonide-E 0.05% Cream), 15 GM TP, (Reported) Discontinued Medications [[place] 3 Fatty Acids], 1 MG PO TWICE A DAY, (Reported) Discontinued Reason: MD discontinued med Patient History Limited by: medical condition History Provided By: EMS Healthcare decision maker Resuscitation status Advanced Directive on File Review of Systems ROS Narrative Unable to obtain due to clinical condition Physical Exam General Appearance: other - intubated Lines, tubes and drains: peripheral HEENT: normocephalic, atraumatic, other - dry mucous membranes Neck: non-tender, normal alignment Respiratory/Chest: rhonchi - bilaterally Cardiovascular/Chest: normal peripheral pulses, normal rate Abdomen: soft, hypoactive bowel sounds Extremities: normal range of motion, no calf tenderness, non-pitting, no edema Skin Exam: normal pigmentation, warm/dry Last 24 Hour Vital Signs Date Time Temp Pulse Resp B/P (MAP) Pulse Ox O2 Delivery O2 Flow Rate FiO2 02/22/20 19:45 73 21 Mechanical Ventilator 70 02/22/20 19:45 98.3 89 23 130/80 98 Mechanical Ventilator 15.0 70 02/22/20 19:45 23 132/78 Mechanical Ventilator 02/22/20 19:45 132/78 02/22/20 19:36 136/74 02/22/20 18:46 70 23 132/75 95 Mechanical Ventilator 70 02/22/20 18:45 23 132/75 Mechanical Ventilator 02/22/20 18:45 132/70 02/22/20 17:45 18 113/67 Mechanical Ventilator 02/22/20 17:45 113/67 02/22/20 17:43 59 18 119/67 99 Mechanical Ventilator 02/22/20 16:45 119/76 02/22/20 16:45 98.3 65 18 119/76 94 Mechanical Ventilator 02/22/20 16:34 18 119/76 Mechanical Ventilator 02/22/20 15:45 119/67 02/22/20 15:44 98.9 60 20 119/67 98 Mechanical Ventilator 70 02/22/20 15:34 20 119/67 Mechanical Ventilator 02/22/20 15:25 63 20 70 02/22/20 14:45 122/74 02/22/20 14:34 20 113/69 Mechanical Ventilator 02/22/20 14:25 89/53 02/22/20 14:19 20 122/74 Mechanical Ventilator 02/22/20 14:19 20 122/74 Mechanical Ventilator 02/22/20 13:56 61 20 70 02/22/20 13:45 113/65 02/22/20 13:45 59 20 113/65 96 Mechanical Ventilator 02/22/20 13:40 112/67 02/22/20 13:40 62 20 112/67 97 Mechanical Ventilator 02/22/20 13:35 102/63 02/22/20 13:35 102/63 02/22/20 13:30 78/53 02/22/20 13:30 78/53 02/22/20 13:30 62 20 Non-Rebreather 15.0 02/22/20 13:25 82/54 02/22/20 13:25 82/54 02/22/20 13:20 62 20 92/73 97 Non-Rebreather 15.0 02/22/20 13:20 92/73 02/22/20 13:15 89/53 02/22/20 12:20 100.9 64 22 83/51 90 Nasal Cannula 5.0 02/22/20 12:16 100.9 69 22 83/51 (62) 98 Nasal Cannula 5.0 Laboratory Tests Test 02/22/20 12:08 02/22/20 12:28 02/22/20 15:05 White Blood Count 7.3 K/UL (4.8-10.8) Red Blood Count 3.93 M/UL (4.70-6.10) L Hemoglobin 12.1 G/DL (14.2-18.0) L Hematocrit 33.9 % (42.0-52.0) L Mean Corpuscular Volume 86 FL (80-99) Mean Corpuscular Hemoglobin 30.7 PG (27.0-31.0) Mean Corpuscular Hemoglobin Concent 35.6 G/DL (32.0-36.0) Red Cell Distribution Width 13.1 % (11.6-14.8) Platelet Count 329 K/UL (150-450) Mean Platelet Volume 4.9 FL (6.5-10.1) L Neutrophils (%) (Auto) 83.1 % (45.0-75.0) H Lymphocytes (%) (Auto) 12.2 % (20.0-45.0) L Monocytes (%) (Auto) 4.3 % (1.0-10.0) Eosinophils (%) (Auto) 0.0 % (0.0-3.0) Basophils (%) (Auto) 0.4 % (0.0-2.0) Prothrombin Time 12.3 SEC (9.30-11.50) H Prothromb Time International Ratio 1.2 (0.9-1.1) H Activated Partial Thromboplast Time 40 SEC (23-33) H D-Dimer 1.57 mg/L FEU (0.00-0.49) H Urine Color Yellow Urine Appearance Clear Urine pH 5 (4.5-8.0) Urine Specific [place] 1.015 (1.005-1.035) Urine Protein 3+ (NEGATIVE) H Urine Glucose (UA) Negative (NEGATIVE) Urine Ketones 1+ (NEGATIVE) H Urine Blood 1+ (NEGATIVE) H Urine Nitrite Negative (NEGATIVE) Urine Bilirubin 1+ (NEGATIVE) H Urine Ictotest Negative (NEGATIVE) Urine Urobilinogen 4 MG/DL (0.0-1.0) H Urine Leukocyte Esterase 1+ (NEGATIVE) H Urine RBC 0-2 /HPF (0 - 0) H Urine WBC 2-4 /HPF (0 - 0) Urine Squamous Epithelial Cells Occasional /LPF Urine Bacteria Few /HPF (NONE) Urine Mucus Few /LPF (NONE/OCC) H Sodium Level 150 MMOL/L (136-145) H Potassium Level 3.6 MMOL/L (3.5-5.1) Chloride Level 112 MMOL/L (98-107) H Carbon Dioxide Level 28 MMOL/L (21-32) Anion Gap 10 mmol/L (5-15) Blood Urea Nitrogen 20 mg/dL (7-18) H Creatinine 0.6 MG/DL (0.55-1.30) Estimat Glomerular Filtration Rate > 60 mL/min (>60) Glucose Level 140 MG/DL (74-106) H Lactic Acid Level 2.80 mmol/L (0.4-2.0) H 2.60 mmol/L (0.66-2.22) H Calcium Level 7.8 MG/DL (8.5-10.1) L Total Bilirubin 1.1 MG/DL (0.2-1.0) H Direct Bilirubin 0.3 MG/DL (0.0-0.3) Aspartate Amino Transf (AST/SGOT) 35 U/L (15-37) Alanine Aminotransferase (ALT/SGPT) 39 U/L (12-78) Alkaline Phosphatase 85 U/L (46-116) Total Creatine Kinase 118 U/L (26-308) Creatine Kinase MB 0.6 NG/ML (0.0-3.6) Creatine Kinase MB Relative Index 0.5 Troponin I 0.000 ng/mL (0.000-0.056) Pro-B-Type Natriuretic Peptide 2269 pg/mL (0-125) H Total Protein 6.6 G/DL (6.4-8.2) Albumin 1.9 G/DL (3.4-5.0) L Globulin 4.7 g/dL Albumin/Globulin Ratio 0.4 (1.0-2.7) L Arterial Blood pH 7.462 (7.350-7.450) Arterial Blood Partial Pressure CO2 34.4 mmHg (35.0-45.0) L Arterial Blood Partial Pressure O2 49.1 mmHg (75.0-100.0) Arterial Blood HCO3 24.0 mmol/L (22.0-26.0) Arterial Blood Oxygen Saturation 84.6 % (95-100) *L Arterial Blood Base Excess 0.6 (-2-2) Kuldeep Test Positive Height (Feet): 5 Height (Inches): 5.00 Weight (Pounds): 140 Medications Current Medications Medications (Trade) Dose Ordered Sig/Cirilo Route PRN Reason Start Time Stop Time Status Last Admin Dose Admin Acetaminophen (Tylenol) 650 mg Q4H PRN ORAL Fever 02/22/20 14:15 03/23/20 14:14 Acetaminophen (Tylenol) 650 mg Q4H PRN ORAL Mild Pain (Pain Scale 1-3) 02/22/20 14:15 03/23/20 14:14 Acetaminophen (Tylenol) 650 mg Q4H PRN RECTAL FEVER 02/22/20 14:15 03/23/20 14:14 Acetaminophen (Tylenol) 650 mg Q4H PRN RECTAL Mild Pain (Pain Scale 1-3) 02/22/20 14:15 03/23/20 14:14 Dextrose (Dextrose 50%) 25 ml Q30M PRN IV Hypoglycemia 02/22/20 14:15 05/22/20 14:14 Dextrose (Dextrose 50%) 50 ml Q30M PRN IV Hypoglycemia 02/22/20 14:15 05/22/20 14:14 Diphenhydramine HCl (Benadryl) 25 mg Q6H PRN ORAL Itching/Pruritis 02/22/20 14:15 03/23/20 14:14 Enoxaparin Sodium (Lovenox) 40 mg Q24H SUBQ 02/22/20 17:00 05/22/20 16:59 02/22/20 16:57 Insulin Aspart (NovoLOG) Q6HR SUBQ 02/22/20 18:00 05/22/20 16:29 UNV Norepinephrine Bitartrate 4 mg/ Dextrose 250 ml @ 0 mls/hr Q24H IV 02/22/20 13:15 03/23/20 13:14 02/22/20 19:36 Pantoprazole (Protonix) 40 mg DAILY ORAL 02/23/20 09:00 03/24/20 08:59 Propofol 100 ml @ 0 mls/hr Q24H IV 02/22/20 14:15 02/24/20 14:14 02/22/20 14:19 Vancomycin HCl (Vanco rx to dose) 1 ea DAILY PRN MISC Per rx protocol 02/22/20 14:30 03/23/20 14:29 Vancomycin HCl 750 mg/Sodium Chloride 275 ml @ 183 mls/hr Q12HR@0000,1200 IVPB 02/23/20 00:00 02/28/20 00:00 Assessment/Plan Diagnosis [place]: #Hypernatremia, hyperchloemia duw to volume depletion #septic shock- r/o COVID #Hypoxemic respiratory failure s/p intbation- ventilator dependent # HTN now in shock #, DMT2 # dementia due Alzheimers dx # h/o CVA/TIA # h/o DVT # schizophrenia, bipolar - ICU admission - continue hydration- D5 1/2NS + 20 meq kcl at 75 cc/hr - levophed drip - antibiotics per ICU - trend lactic acid - follow cx - vent management per pulmonary - monitor lytes - BG control - hold antihypertensive Dwayne Salas M.D. Feb 22, 2020 20:20
[2020-02-22] MEDS: D5 1/2NS w/KCl 20mEq 1,000 ML IV SCH (23:20)
--- NOTE | 2020-02-22 23:30 | Consultation ---
DATE OF CONSULTATION: 02/22/2020 CARDIOLOGY CONSULTATION CONSULTING PHYSICIAN: Deric Garcia MD. REFERRING PHYSICIAN: Dr. Nunez. ADDITIONAL REFERRING PHYSICIAN: Enedelia Arana MD. REASON FOR CONSULTATION: Abnormal electrocardiogram, possible congestive heart failure with elevated BNP in the patient with respiratory failure, on the ventilator as well as management of hypotension. HISTORY OF PRESENT ILLNESS: The patient is a 74-year-old gentleman with history of hypertension, diabetes, dementia, Alzheimer's, history of CVA and schizophrenia, who was brought from [facility] for fever. The patient was found to have respiratory failure and was intubated in the emergency room. Chest x-ray shows bilateral infiltrate, but mostly on the right side. The patient's white count was normal, however, he had lymphopenia. The patient was also hypotensive and started on Levophed. Upon my evaluation, the patient unresponsive on the ventilator on Levophed and still in the emergency room. REVIEW OF SYSTEMS: Cannot be obtained. PAST MEDICAL HISTORY: As mentioned above. FAMILY HISTORY: Noncontributory. SOCIAL HISTORY: He lives in [place]. Does not smoke or drink alcohol. PHYSICAL EXAMINATION: VITAL SIGNS: Show blood pressure 118/75 initially was 89/53, pulse is 60, respirations 18, and temperature 98.9. HEAD AND NECK: Showed no JVD. He is orally intubated. LUNGS: Decreased breath sounds and coarse rhonchi. CARDIOVASCULAR: Regular S1 and S2 with no gallop. ABDOMEN: Soft. EXTREMITIES: No pitting edema. LABORATORY AND DIAGNOSTIC DATA: Labs show white count 7.2, hemoglobin 12.1, hematocrit 34, and platelet count of 329. Sodium 150, potassium 3.6, BUN of 20, creatinine 0.6. Lactic acid is 2.8. The first troponin is negative. BNP is 2269. ASSESSMENT/PLAN: 1. Respiratory failure likely due to pneumonia in view of chest x-ray. However, cannot rule out congestive heart failure as BNP is more than 2000. The patient is hypotensive, hypernatremic, and azotemic. We are going to hold off on Lasix at this time. We completely rule out PA protocol. Repeat EKG and get an echocardiogram for further evaluation. 2. Septic shock likely due to pneumonia. His white count however is only 7.2, but he has lymphopenia that could be due to COVID pneumonia for which result is pending. 3. Hypernatremia, sodium 150. The patient is getting IV fluids. 4. Dehydration. 5. Septic shock with lactic acidosis on Levophed and IV antibiotics. The patient is already on vancomycin. The case was discussed with the ER physician as well as Dr. Nunez. Thank you very much for allowing me to participate in the care of this patient. Please do not hesitate to contact me for any questions regarding my evaluation. Sincerely. Deric Garcia M.D. DR: Prabhjot JOB#: [id number] CC:
--- NOTE | 2020-02-22 23:34 | Infectious Diseases Prog Note ---
Assessment/Plan Assessment/Plan Full consult dictated: Patient seen in ER A) 1) sepsis, pna, shock 2) respiratory failure, vent 3) rule out covid-19 virus infection P) 1) zosyn, vancomycin 2) consider hydroxychloroquine 3I f/u on cultures 4) thank you Subjective Allergies: Coded Allergies: No Known Allergies (Unverified , 01/19/19) Objective Vital Signs Last 24 Hour Vital Signs Date Time Temp Pulse Resp B/P (MAP) Pulse Ox O2 Delivery O2 Flow Rate FiO2 02/22/20 23:16 103.0 02/22/20 21:45 29 136/78 Mechanical Ventilator 15.0 70 02/22/20 21:45 136/78 02/22/20 21:36 104.2 107 26 119/95 99 Mechanical Ventilator 15.0 70 02/22/20 20:56 102 31 Mechanical Ventilator 70 02/22/20 20:45 20 154/82 Mechanical Ventilator 15.0 70 02/22/20 20:45 152/82 02/22/20 20:45 98.3 117 22 132/80 94 Mechanical Ventilator 15.0 70 02/22/20 19:45 73 21 Mechanical Ventilator 70 02/22/20 19:45 98.3 89 23 130/80 98 Mechanical Ventilator 15.0 70 02/22/20 19:45 23 132/78 Mechanical Ventilator 02/22/20 19:45 132/78 02/22/20 19:36 136/74 02/22/20 18:46 70 23 132/75 95 Mechanical Ventilator 70 02/22/20 18:45 23 132/75 Mechanical Ventilator 02/22/20 18:45 132/70 02/22/20 17:45 18 113/67 Mechanical Ventilator 02/22/20 17:45 113/67 02/22/20 17:43 59 18 119/67 99 Mechanical Ventilator 02/22/20 16:45 119/76 02/22/20 16:45 98.3 65 18 119/76 94 Mechanical Ventilator 02/22/20 16:34 18 119/76 Mechanical Ventilator 02/22/20 15:45 119/67 02/22/20 15:44 98.9 60 20 119/67 98 Mechanical Ventilator 70 02/22/20 15:34 20 119/67 Mechanical Ventilator 02/22/20 15:25 63 20 70 4/27/20 14:45 122/74 02/22/20 14:34 20 113/69 Mechanical Ventilator 02/22/20 14:25 89/53 02/22/20 14:19 20 122/74 Mechanical Ventilator 02/22/20 14:19 20 122/74 Mechanical Ventilator 02/22/20 13:56 61 20 70 02/22/20 13:45 113/65 02/22/20 13:45 59 20 113/65 96 Mechanical Ventilator 02/22/20 13:40 112/67 02/22/20 13:40 62 20 112/67 97 Mechanical Ventilator 02/22/20 13:35 102/63 02/22/20 13:35 102/63 02/22/20 13:30 78/53 02/22/20 13:30 78/53 02/22/20 13:30 62 20 Non-Rebreather 15.0 02/22/20 13:25 82/54 02/22/20 13:25 82/54 02/22/20 13:20 62 20 92/73 97 Non-Rebreather 15.0 02/22/20 13:20 92/73 02/22/20 13:15 89/53 02/22/20 12:20 100.9 64 22 83/51 90 Nasal Cannula 5.0 02/22/20 12:16 100.9 69 22 83/51 (62) 98 Nasal Cannula 5.0 Height (Feet): 5 Height (Inches): 5.00 Weight (Pounds): 140 Laboratory Tests Test 02/22/20 12:08 02/22/20 12:28 02/22/20 15:05 White Blood Count 7.3 K/UL (4.8-10.8) Red Blood Count 3.93 M/UL (4.70-6.10) L Hemoglobin 12.1 G/DL (14.2-18.0) L Hematocrit 33.9 % (42.0-52.0) L Mean Corpuscular Volume 86 FL (80-99) Mean Corpuscular Hemoglobin 30.7 PG (27.0-31.0) Mean Corpuscular Hemoglobin Concent 35.6 G/DL (32.0-36.0) Red Cell Distribution Width 13.1 % (11.6-14.8) Platelet Count 329 K/UL (150-450) Mean Platelet Volume 4.9 FL (6.5-10.1) L Neutrophils (%) (Auto) 83.1 % (45.0-75.0) H Lymphocytes (%) (Auto) 12.2 % (20.0-45.0) L Monocytes (%) (Auto) 4.3 % (1.0-10.0) Eosinophils (%) (Auto) 0.0 % (0.0-3.0) Basophils (%) (Auto) 0.4 % (0.0-2.0) Prothrombin Time 12.3 SEC (9.30-11.50) H Prothromb Time International Ratio 1.2 (0.9-1.1) H Activated Partial Thromboplast Time 40 SEC (23-33) H D-Dimer 1.57 mg/L FEU (0.00-0.49) H Urine Color Yellow Urine Appearance Clear Urine pH 5 (4.5-8.0) Urine Specific [place] 1.015 (1.005-1.035) Urine Protein 3+ (NEGATIVE) H Urine Glucose (UA) Negative (NEGATIVE) Urine Ketones 1+ (NEGATIVE) H Urine Blood 1+ (NEGATIVE) H Urine Nitrite Negative (NEGATIVE) Urine Bilirubin 1+ (NEGATIVE) H Urine Ictotest Negative (NEGATIVE) Urine Urobilinogen 4 MG/DL (0.0-1.0) H Urine Leukocyte Esterase 1+ (NEGATIVE) H Urine RBC 0-2 /HPF (0 - 0) H Urine WBC 2-4 /HPF (0 - 0) Urine Squamous Epithelial Cells Occasional /LPF Urine Bacteria Few /HPF (NONE) Urine Mucus Few /LPF (NONE/OCC) H Sodium Level 150 MMOL/L (136-145) H Potassium Level 3.6 MMOL/L (3.5-5.1) Chloride Level 112 MMOL/L (98-107) H Carbon Dioxide Level 28 MMOL/L (21-32) Anion Gap 10 mmol/L (5-15) Blood Urea Nitrogen 20 mg/dL (7-18) H Creatinine 0.6 MG/DL (0.55-1.30) Estimat Glomerular Filtration Rate > 60 mL/min (>60) Glucose Level 140 MG/DL (74-106) H Lactic Acid Level 2.80 mmol/L (0.4-2.0) H 2.60 mmol/L (0.66-2.22) H Calcium Level 7.8 MG/DL (8.5-10.1) L Total Bilirubin 1.1 MG/DL (0.2-1.0) H Direct Bilirubin 0.3 MG/DL (0.0-0.3) Aspartate Amino Transf (AST/SGOT) 35 U/L (15-37) Alanine Aminotransferase (ALT/SGPT) 39 U/L (12-78) Alkaline Phosphatase 85 U/L (46-116) Total Creatine Kinase 118 U/L (26-308) Creatine Kinase MB 0.6 NG/ML (0.0-3.6) Creatine Kinase MB Relative Index 0.5 Troponin I 0.000 ng/mL (0.000-0.056) Pro-B-Type Natriuretic Peptide 2269 pg/mL (0-125) H Total Protein 6.6 G/DL (6.4-8.2) Albumin 1.9 G/DL (3.4-5.0) L Globulin 4.7 g/dL Albumin/Globulin Ratio 0.4 (1.0-2.7) L Arterial Blood pH 7.462 (7.350-7.450) Arterial Blood Partial Pressure CO2 34.4 mmHg (35.0-45.0) L Arterial Blood Partial Pressure O2 49.1 mmHg (75.0-100.0) Arterial Blood HCO3 24.0 mmol/L (22.0-26.0) Arterial Blood Oxygen Saturation 84.6 % (95-100) *L Arterial Blood Base Excess 0.6 (-2-2) Kuldeep Test Positive Current Medications Medications (Trade) Dose Ordered Sig/Cirilo Route PRN Reason Start Time Stop Time Status Last Admin Dose Admin Acetaminophen (Tylenol) 650 mg Q4H PRN ORAL Fever 02/22/20 14:15 03/23/20 14:14 Acetaminophen (Tylenol) 650 mg Q4H PRN ORAL Mild Pain (Pain Scale 1-3) 02/22/20 14:15 03/23/20 14:14 Acetaminophen (Tylenol) 650 mg Q4H PRN RECTAL Mild Pain (Pain Scale 1-3) 02/22/20 14:15 03/23/20 14:14 02/22/20 21:28 Acetaminophen (Tylenol) 650 mg Q4H PRN RECTAL FEVER 02/22/20 14:15 03/23/20 14:14 Dextrose (Dextrose 50%) 25 ml Q30M PRN IV Hypoglycemia 02/22/20 14:15 05/22/20 14:14 Dextrose (Dextrose 50%) 50 ml Q30M PRN IV Hypoglycemia 02/22/20 14:15 05/22/20 14:14 Dextrose/ Electrolytes 1,000 ml @ 75 mls/hr [id number] IV 02/22/20 22:00 03/23/20 21:59 02/22/20 23:20 Diphenhydramine HCl (Benadryl) 25 mg Q6H PRN ORAL Itching/Pruritis 02/22/20 14:15 03/23/20 14:14 Enoxaparin Sodium (Lovenox) 40 mg Q24H SUBQ 02/22/20 17:00 05/22/20 16:59 02/22/20 16:57 Insulin Aspart (NovoLOG) Q6HR SUBQ 02/23/20 00:00 05/23/20 00:00 Norepinephrine Bitartrate 4 mg/ Dextrose 250 ml @ 0 mls/hr Q24H IV 02/22/20 13:15 03/23/20 13:14 02/22/20 19:36 Pantoprazole (Protonix) 40 mg DAILY ORAL 02/23/20 09:00 03/24/20 08:59 Propofol 100 ml @ 0 mls/hr Q24H IV 02/22/20 14:15 02/24/20 14:14 02/22/20 14:19 Vancomycin HCl (Vanco rx to dose) 1 ea DAILY PRN MISC Per rx protocol 02/22/20 14:30 03/23/20 14:29 Vancomycin HCl 750 mg/Sodium Chloride 275 ml @ 183 mls/hr Q12HR@0000,1200 IVPB 02/23/20 00:00 02/28/20 00:00 Anselmo Estrada MD Feb 22, 2020 23:34
--- NOTE | 2020-02-22 23:45 | Consultation ---
DATE OF CONSULTATION: 02/22/2020 ICU CONSULTATION HISTORY OF PRESENT ILLNESS: This is a 74-year-old male who is a [facility]iary resident. He was sent in from the facility with fever and shortness of breath. The patient was in respiratory distress and intubated in the emergency room. X-ray chest showed diffuse bilateral bibasilar infiltrates as evidence for pulmonary edema with markedly hypoxemic. He has history of hypertension, CVA, DVT, schizophrenia, and dementia. He is wheelchair bound in the [facility]. The patient was found to be febrile also with high lactic acid. Currently, he is in emergency room. PAST SURGICAL HISTORY: None known. SOCIAL HISTORY: detention resident. ALLERGIES: None. REVIEW OF SYSTEMS: Not obtainable. HOME MEDICATIONS: Include Lasix, latanoprost, metformin, Colace, donepezil, benazepril. PHYSICAL EXAMINATION: GENERAL: Elderly male. HEENT: Unremarkable. CHEST: Clear breath sounds bilaterally with decreased breath sounds at both lung bases. ABDOMEN: Soft. EXTREMITIES: There is no edema. NEUROLOGIC: Nonfocal. LABORATORY DATA: Lab testing is notable for white count 7.3, hemoglobin 12. Sodium 150, creatinine 0.6, glucose 140. Lactic acid 2.8. ABG shows pH 7.46, pCO2 34, pO2 49. Coags are negative. X-ray chest discussed above. IMPRESSION: 1. Respiratory failure. 2. Bilateral pneumonia. 3. Pulmonary edema. 4. Diabetes mellitus. 5. . DISCUSSION: The patient is critically ill at this point in time. I appreciate Cardiology consultation. The patient will need broad-spectrum antibiotics, respiratory support, mechanical respirator on 100% oxygen, PEEP of 10. Prognosis grave. We will follow carefully. Andrea Bland M.D. DR: Marcelo JOB#: [id number] CC:
[2020-02-22] MEDS: Vancomycin 750 MG in NS 275 ML IVPB SCH (23:56)
[2020-02-23] VITALS (56 sets, daily range): BP systolic 58–224; BP diastolic 34–202
[2020-02-23] MEDS: Piperacillin/Tazobactam 3.375 GM in D5W 110 ML IVPB SCH ×3 (01:42→17:03)
[2020-02-23] MEDS: propofoL 1,000mg/100ml 100 ML IV SCH (04:45)
[2020-02-23] MEDS: NovoLOG Insulin Flexpen SUBQ SCH ×4 (05:47→17:13)
[2020-02-23] MEDS ORDERED: Levophed 4mg/4mL Inj IV ONE (08:22)
[2020-02-23 09:35] LABS: HEMATOCRIT 33.9 % (42.0-52.0); HEMOGLOBIN 11.7 G/DL (14.2-18.0); MEAN CORPUSCULAR VOLUME 87 FL (80-99); PLATELET COUNT 359 K/UL (150-450); RED BLOOD COUNT 3.91 M/UL (4.70-6.10); RED CELL DISTRIBUTION WIDTH 13.3 % (11.6-14.8); WHITE BLOOD COUNT 10.4 K/UL (4.8-10.8)
[2020-02-23 09:55] LABS: ALANINE AMINOTRANSFERASE 28 U/L (12-78); ALBUMIN 1.6 G/DL (3.4-5.0); ALBUMIN/GLOBULIN RATIO 0.4 (1.0-2.7); ALKALINE PHOSPHATASE 68 U/L (46-116); ANION GAP 14 mmol/L (5-15); ASPARTATE AMINO TRANSFERASE 36 U/L (15-37); BILIRUBIN,TOTAL 1.1 MG/DL (0.2-1.0); BLOOD UREA NITROGEN 15 mg/dL (7-18); CARBON DIOXIDE 21 MMOL/L (21-32); CHLORIDE 109 MMOL/L (98-107); CREATININE 0.5 MG/DL (0.55-1.30); SODIUM 144 MMOL/L (136-145); TRIGLYCERIDES 142 MG/DL (30-150)
[2020-02-23] MEDS: Pantoprazole Inj IVP SCH (10:00)
[2020-02-23] MEDS: fentaNYL Citrate 2,500 MCG in NS 200 ML IV SCH ×2 (10:00→11:00)
[2020-02-23 10:20] LABS: POTASSIUM 2.6 MMOL/L (3.5-5.1)
[2020-02-23 10:32] LABS: BILIRUBIN,DIRECT 0.6 MG/DL (0.0-0.3)
[2020-02-23] MEDS: Norepinephrine Bitartrate 8 MG in D5W 500ml 550 ML IV SCH ×2 (11:00→16:03)
[2020-02-23] MEDS: D5 1/2NS w/KCl 20mEq 1,000 ML IV SCH ×3 (11:00→23:56)
--- NOTE | 2020-02-23 11:54 | Pulmonology Progress Note ---
Assessment/Plan Assessment/Plan IMPRESSION: 1. Respiratory failure. 2. Bilateral pneumonia. 3. Pulmonary edema. 4. Diabetes mellitus. DISCUSSION: Await COVID 19 pcr The patient is critically ill at this point in time. I appreciate Cardiology consultation. Continue broad-spectrum antibiotics. Continue respiratory support; will adjust vent settings I will follow carefully. Andrea Bland M.D. Subjective Interval Events: Remains intubtaed; was intubated on 02/22/20 Constitutional: Reports: no symptoms HEENT: Repors: no symptoms Respiratory: Reports: no symptoms Cardiovascular: Reports: no symptoms Gastrointestinal/Abdominal: Reports: no symptoms Genitourinary: Reports: no symptoms Endocrine: Reports: no symptoms Allergies: Coded Allergies: No Known Allergies (Unverified , 01/19/19) Subjective seen and evaluated Discussed with RN Objective Last 24 Hour Vital Signs Date Time Temp Pulse Resp B/P (MAP) Pulse Ox O2 Delivery O2 Flow Rate FiO2 02/23/20 11:00 27 Mechanical Ventilator 80 02/23/20 11:00 95/63 02/23/20 10:30 83 29 80 02/23/20 10:03 80 02/23/20 09:09 86 30 70 02/23/20 09:05 99.9 87 30 117/80 98 Room Air 15.0 70 02/23/20 09:05 99.9 87 30 117/80 98 Mechanical Ventilator 15.0 70 02/23/20 09:00 Mechanical Ventilator 02/23/20 09:00 92 02/23/20 08:24 103/70 02/23/20 08:03 99.9 74 29 103/70 96 Mechanical Ventilator 15.0 70 02/23/20 08:00 20 112/76 Mechanical Ventilator 70 02/23/20 08:00 112/76 02/23/20 07:30 87 30 70 02/23/20 07:00 103.0 90 34 138/57 97 Mechanical Ventilator 15.0 70 02/23/20 07:00 34 138/57 Mechanical Ventilator 70 02/23/20 07:00 138/57 02/23/20 06:00 103.0 90 32 137/57 97 Mechanical Ventilator 15.0 70 02/23/20 06:00 32 137/57 Mechanical Ventilator 70 02/23/20 06:00 137/57 02/23/20 05:29 98 26 70 02/23/20 05:00 32 134/52 Mechanical Ventilator 70 02/23/20 05:00 134/52 02/23/20 05:00 103.0 90 32 134/52 95 Mechanical Ventilator 15.0 70 02/23/20 04:46 102/38 02/23/20 04:45 34 102/38 Mechanical Ventilator 70 02/23/20 04:30 32 102/38 Mechanical Ventilator 70 02/23/20 04:30 102/38 02/23/20 04:15 28 100/44 Mechanical Ventilator 70 02/23/20 04:15 100/44 02/23/20 04:10 127/50 02/23/20 04:05 128/51 02/23/20 04:00 28 124/49 Mechanical Ventilator 70 02/23/20 04:00 28 124/49 Mechanical Ventilator 70 02/23/20 04:00 124/49 02/23/20 04:00 103.0 95 28 124/49 95 Mechanical Ventilator 15.0 70 02/23/20 03:49 106 27 70 02/23/20 03:00 103.0 109 29 94/64 95 Mechanical Ventilator 15.0 70 02/23/20 03:00 29 94/64 Mechanical Ventilator 70 02/23/20 03:00 94/64 02/23/20 02:07 112 39 70 02/23/20 02:00 103.0 111 27 96/69 95 Mechanical Ventilator 15.0 70 02/23/20 02:00 27 96/69 Mechanical Ventilator 70 02/23/20 02:00 96/69 02/23/20 01:11 98/66 02/23/20 01:00 103.0 110 20 102/71 95 Mechanical Ventilator 15.0 70 02/23/20 01:00 20 102/71 Mechanical Ventilator 70 02/23/20 01:00 102/71 02/23/20 00:45 29 95/62 Mechanical Ventilator 70 02/23/20 00:30 31 99/65 Mechanical Ventilator 70 02/23/20 00:30 99/65 02/23/20 00:15 22 87/52 Mechanical Ventilator 70 02/23/20 00:15 95/61 4/28/20 00:10 97/63 02/23/20 00:05 99/62 02/23/20 00:00 103.0 108 22 96/66 95 Mechanical Ventilator 15.0 70 02/23/20 00:00 22 96/66 Mechanical Ventilator 70 02/23/20 00:00 96/66 02/22/20 23:49 97 26 70 02/22/20 23:16 103.0 02/22/20 23:00 28 86/53 Mechanical Ventilator 70 02/22/20 23:00 86/53 02/22/20 23:00 103.0 105 28 86/53 95 Mechanical Ventilator 15.0 70 02/22/20 22:45 103.0 108 24 119/83 95 Mechanical Ventilator 15.0 70 02/22/20 22:45 29 119/83 Mechanical Ventilator 70 02/22/20 22:45 119/83 02/22/20 22:30 29 105/74 Mechanical Ventilator 70 02/22/20 22:15 33 113/68 Mechanical Ventilator 70 02/22/20 22:00 31 117/68 Mechanical Ventilator 70 02/22/20 21:45 29 136/78 Mechanical Ventilator 15.0 70 02/22/20 21:45 136/78 02/22/20 21:36 104.2 107 26 119/95 99 Mechanical Ventilator 15.0 70 02/22/20 20:56 102 31 Mechanical Ventilator 70 02/22/20 20:45 20 154/82 Mechanical Ventilator 15.0 70 02/22/20 20:45 152/82 02/22/20 20:45 98.3 117 22 132/80 94 Mechanical Ventilator 15.0 70 02/22/20 20:30 34 132/80 Mechanical Ventilator 70 02/22/20 20:15 30 117/90 Mechanical Ventilator 70 02/22/20 20:00 30 115/75 Mechanical Ventilator 70 02/22/20 19:45 73 21 Mechanical Ventilator 70 02/22/20 19:45 98.3 89 23 130/80 98 Mechanical Ventilator 15.0 70 02/22/20 19:45 23 132/78 Mechanical Ventilator 02/22/20 19:45 132/78 02/22/20 19:36 136/74 02/22/20 18:46 70 23 132/75 95 Mechanical Ventilator 70 02/22/20 18:45 23 132/75 Mechanical Ventilator 02/22/20 18:45 132/70 02/22/20 17:45 18 113/67 Mechanical Ventilator 02/22/20 17:45 113/67 02/22/20 17:43 59 18 119/67 99 Mechanical Ventilator 02/22/20 16:45 119/76 02/22/20 16:45 98.3 65 18 119/76 94 Mechanical Ventilator 02/22/20 16:34 18 119/76 Mechanical Ventilator 02/22/20 15:45 119/67 02/22/20 15:44 98.9 60 20 119/67 98 Mechanical Ventilator 70 02/22/20 15:34 20 119/67 Mechanical Ventilator 02/22/20 15:25 63 20 70 02/22/20 14:45 122/74 02/22/20 14:34 20 113/69 Mechanical Ventilator 02/22/20 14:25 89/53 02/22/20 14:19 20 122/74 Mechanical Ventilator 02/22/20 14:19 20 122/74 Mechanical Ventilator 02/22/20 13:56 61 20 70 02/22/20 13:45 113/65 02/22/20 13:45 59 20 113/65 96 Mechanical Ventilator 02/22/20 13:40 112/67 02/22/20 13:40 62 20 112/67 97 Mechanical Ventilator 02/22/20 13:35 102/63 02/22/20 13:35 102/63 02/22/20 13:30 78/53 02/22/20 13:30 78/53 02/22/20 13:30 62 20 Non-Rebreather 15.0 02/22/20 13:25 82/54 02/22/20 13:25 82/54 02/22/20 13:20 62 20 92/73 97 Non-Rebreather 15.0 02/22/20 13:20 92/73 02/22/20 13:15 89/53 02/22/20 12:20 100.9 64 22 83/51 90 Nasal Cannula 5.0 02/22/20 12:16 100.9 69 22 83/51 (62) 98 Nasal Cannula 5.0 Intake and Output 02/22/20 02/23/20 19:00 07:00 Intake Total 872.458 ml Output Total 500 ml Balance 372.458 ml Intake IV Total 872.458 ml Output Urine Total 500 ml # Bowel Movements 3 General Appearance: no acute distress HEENT: normocephalic, atraumatic, other - dry mucous membranes Respiratory/Chest: chest wall non-tender, decreased breath sounds Cardiovascular: normal peripheral pulses Abdomen: normal bowel sounds Extremities: no cyanosis Lymphatic: no neck adenopathy Laboratory Tests 02/22/20 12:08: White Blood Count 7.3, Red Blood Count 3.93L, Hemoglobin 12.1L, Hematocrit 33.9L , Mean Corpuscular Volume 86, Mean Corpuscular Hemoglobin 30.7, Mean Corpuscular Hemoglobin Concent 35.6, Red Cell Distribution Width 13.1, Platelet Count 329, Mean Platelet Volume 4.9L, Neutrophils (%) (Auto) 83.1H, Lymphocytes (%) (Auto) 12.2L, Monocytes (%) (Auto) 4.3, Eosinophils (%) (Auto) 0.0, Basophils (%) (Auto) 0.4, Prothrombin Time 12.3H, Prothromb Time International Ratio 1.2H, Activated Partial Thromboplast Time 40H, D-Dimer 1.57H, Urine Color Yellow, Urine Appearance Clear, Urine pH 5, Urine Specific [place] 1.015, Urine Protein 3+H, Urine Glucose (UA) Negative, Urine Ketones 1+H, Urine Blood 1+H, Urine Nitrite Negative, Urine Bilirubin 1+H, Urine Ictotest Negative, Urine Urobilinogen 4H, Urine Leukocyte Esterase 1+H, Urine RBC 0-2H, Urine WBC 2-4, Urine Squamous Epithelial Cells Occasional, Urine Bacteria Few, Urine Mucus FewH , Sodium Level 150H, Potassium Level 3.6, Chloride Level 112H, Carbon Dioxide Level 28, Anion Gap 10, Blood Urea Nitrogen 20H, Creatinine 0.6, Estimat Glomerular Filtration Rate > 60, Glucose Level 140H, Lactic Acid Level 2.80H, Calcium Level 7.8L, Total Bilirubin 1.1H, Direct Bilirubin 0.3, Aspartate Amino Transf (AST/SGOT) 35, Alanine Aminotransferase (ALT/SGPT) 39, Alkaline Phosphatase 85, Total Creatine Kinase 118, Creatine Kinase MB 0.6, Creatine Kinase MB Relative Index 0.5, Troponin I 0.000, Pro-B-Type Natriuretic Peptide 2269H, Total Protein 6.6, Albumin 1.9L, Globulin 4.7, Albumin/Globulin Ratio 0.4L 02/22/20 12:28: Arterial Blood pH 7.462H, Arterial Blood Partial Pressure CO2 34.4L, Arterial Blood Partial Pressure O2 49.1*L, Arterial Blood HCO3 24.0, Arterial Blood Oxygen Saturation 84.6*L, Arterial Blood Base Excess 0.6, Kuldeep Test Positive 02/22/20 15:05: Lactic Acid Level 2.60H 02/23/20 08:45: White Blood Count 10.4, Red Blood Count 3.91L, Hemoglobin 11.7L, Hematocrit 33.9L, Mean Corpuscular Volume 87, Mean Corpuscular Hemoglobin 30.0, Mean Corpuscular Hemoglobin Concent 34.6, Red Cell Distribution Width 13.3, Platelet Count 359, Mean Platelet Volume 5.0L, Neutrophils (%) (Auto) , Lymphocytes (%) ( Auto) , Monocytes (%) (Auto) , Eosinophils (%) (Auto) , Basophils (%) (Auto) , D -Dimer 4.93H, Sodium Level 144, Potassium Level 2.6*L, Chloride Level 109H, Carbon Dioxide Level 21, Anion Gap 14, Blood Urea Nitrogen 15, Creatinine 0.5L, Estimat Glomerular Filtration Rate > 60, Glucose Level 196H, Calcium Level 7.0L , Total Bilirubin 1.1H, Direct Bilirubin 0.6H, Aspartate Amino Transf (AST/SGOT ) 36, Alanine Aminotransferase (ALT/SGPT) 28, Alkaline Phosphatase 68, Troponin I 1.659H, Pro-B-Type Natriuretic Peptide 91254L, Total Protein 5.8L, Albumin 1.6L, Globulin 4.2, Albumin/Globulin Ratio 0.4L, Differential Total Cells Counted 100, Neutrophils % (Manual) 90H, Lymphocytes % (Manual) 6L, Monocytes % (Manual) 1, Eosinophils % (Manual) 0, Basophils % (Manual) 0, Band Neutrophils 3 , Platelet Estimate Adequate, Platelet Morphology Normal, Red Blood Cell Morphology Normal, Triglycerides Level 142, Thyroid Stimulating Hormone (TSH) 0.255L 02/23/20 09:48: Arterial Blood pH 7.367, Arterial Blood Partial Pressure CO2 34.8L, Arterial Blood Partial Pressure O2 53.9L, Arterial Blood HCO3 19.5L, Arterial Blood Oxygen Saturation 86.2*L, Arterial Blood Base Excess -5.0L, Kludeep Test Positive Current Medications Medications (Trade) Dose Ordered Sig/Cirilo Route PRN Reason Start Time Stop Time Status Last Admin Dose Admin Acetaminophen (Tylenol) 650 mg Q4H PRN ORAL Fever 02/22/20 14:15 03/23/20 14:14 Acetaminophen (Tylenol) 650 mg Q4H PRN ORAL Mild Pain (Pain Scale 1-3) 02/22/20 14:15 03/23/20 14:14 Acetaminophen (Tylenol) 650 mg Q4H PRN RECTAL Mild Pain (Pain Scale 1-3) 02/22/20 14:15 03/23/20 14:14 02/22/20 21:28 Acetaminophen (Tylenol) 650 mg Q4H PRN RECTAL FEVER 02/22/20 14:15 03/23/20 14:14 Chlorhexidine Gluconate (Maira-Hex 2%) 1 applic DAILY@2000 TOPIC 02/23/20 20:00 05/23/20 19:59 Dextrose (Dextrose 50%) 25 ml Q30M PRN IV Hypoglycemia 02/23/20 09:00 05/23/20 08:59 Dextrose (Dextrose 50%) 50 ml Q30M PRN IV Hypoglycemia 02/23/20 09:00 05/23/20 08:59 Dextrose/ Electrolytes 1,000 ml @ 75 mls/hr [id number] IV 02/22/20 22:00 03/23/20 21:59 02/23/20 11:00 Diphenhydramine HCl (Benadryl) 25 mg Q6H PRN ORAL Itching/Pruritis 02/22/20 14:15 03/23/20 14:14 Enoxaparin Sodium (Lovenox) 40 mg Q24H SUBQ 02/22/20 17:00 05/22/20 16:59 02/22/20 16:57 Fentanyl Citrate 2500 mcg/Sodium Chloride 250 ml @ 0 mls/hr Q24H IV 02/23/20 10:00 03/01/20 09:59 02/23/20 11:00 Insulin Aspart (NovoLOG) Q6HR SUBQ 02/23/20 12:00 05/23/20 11:59 Norepinephrine Bitartrate 8 mg/ Dextrose 558 ml @ 0 mls/hr Q24H IV 02/23/20 10:00 03/24/20 09:59 02/23/20 11:00 Pantoprazole (Protonix) 40 mg DAILY IVP 02/23/20 09:30 03/24/20 09:29 02/23/20 10:00 Piperacillin Sod/ Tazobactam Sod 3.375 gm/Dextrose 110 ml @ 27.5 mls/hr Q8H IVPB 02/23/20 01:00 03/01/20 00:59 02/23/20 09:59 Propofol 100 ml @ 0 mls/hr Q24H IV 02/22/20 14:15 02/24/20 14:14 02/23/20 04:45 Vancomycin HCl (Vanco rx to dose) 1 ea DAILY PRN MISC Per rx protocol 02/22/20 14:30 03/23/20 14:29 Vancomycin HCl 750 mg/Sodium Chloride 275 ml @ 183 mls/hr Q12HR@0000,1200 IVPB 02/23/20 00:00 02/28/20 00:00 02/22/20 23:56 Andrea Bland MD Feb 23, 2020 11:54
--- NOTE | 2020-02-23 12:06 | Cardiac Electrophysiology PN ---
Assessment/Plan Assessment/Plan 1. Respiratory failure likely due to pneumonia in view of chest x-ray. However, cannot rule out congestive heart failure as BNP is more than 2000. ECho EF 50%. His white count however is only 7.2, but he has lymphopenia that could be due to COVID pneumonia for which result is pending. On the VEnt 80% Fio2, PEEP 5 2. Septic shock likely due to pneumonia and dehydration. The patient is hypotensive, hypernatremic, and azotemic. On Levo 30 mcg and D51/2 ns at 75 cc/hr. Increase to 100 cc/hr 3. Hypernatremia, sodium 150. The patient is getting IV fluids. 4. Dehydration. Subjective Subjective Maxed out on Levo but BP up to 200. Now is on Levo 30 mcg. Troponin 1.6 on the vent Fio2 80%. ECho EF 50%. Covid PCR still pending Objective Last 24 Hour Vital Signs Date Time Temp Pulse Resp B/P (MAP) Pulse Ox O2 Delivery O2 Flow Rate FiO2 02/23/20 11:00 27 Mechanical Ventilator 80 02/23/20 11:00 95/63 02/23/20 10:30 83 29 80 02/23/20 10:03 80 02/23/20 09:09 86 30 70 02/23/20 09:05 99.9 87 30 117/80 98 Room Air 15.0 70 02/23/20 09:05 99.9 87 30 117/80 98 Mechanical Ventilator 15.0 70 02/23/20 09:00 Mechanical Ventilator 02/23/20 09:00 92 02/23/20 08:24 103/70 02/23/20 08:03 99.9 74 29 103/70 96 Mechanical Ventilator 15.0 70 02/23/20 08:00 20 112/76 Mechanical Ventilator 70 02/23/20 08:00 112/76 02/23/20 07:30 87 30 70 02/23/20 07:00 103.0 90 34 138/57 97 Mechanical Ventilator 15.0 70 02/23/20 07:00 34 138/57 Mechanical Ventilator 70 02/23/20 07:00 138/57 02/23/20 06:00 103.0 90 32 137/57 97 Mechanical Ventilator 15.0 70 02/23/20 06:00 32 137/57 Mechanical Ventilator 70 4/28/20 06:00 137/57 02/23/20 05:29 98 26 70 02/23/20 05:00 32 134/52 Mechanical Ventilator 70 02/23/20 05:00 134/52 02/23/20 05:00 103.0 90 32 134/52 95 Mechanical Ventilator 15.0 70 02/23/20 04:46 102/38 02/23/20 04:45 34 102/38 Mechanical Ventilator 70 02/23/20 04:30 32 102/38 Mechanical Ventilator 70 02/23/20 04:30 102/38 02/23/20 04:15 28 100/44 Mechanical Ventilator 70 02/23/20 04:15 100/44 02/23/20 04:10 127/50 02/23/20 04:05 128/51 02/23/20 04:00 28 124/49 Mechanical Ventilator 70 02/23/20 04:00 28 124/49 Mechanical Ventilator 70 02/23/20 04:00 124/49 02/23/20 04:00 103.0 95 28 124/49 95 Mechanical Ventilator 15.0 70 02/23/20 03:49 106 27 70 02/23/20 03:00 103.0 109 29 94/64 95 Mechanical Ventilator 15.0 70 02/23/20 03:00 29 94/64 Mechanical Ventilator 70 02/23/20 03:00 94/64 02/23/20 02:07 112 39 70 02/23/20 02:00 103.0 111 27 96/69 95 Mechanical Ventilator 15.0 70 02/23/20 02:00 27 96/69 Mechanical Ventilator 70 02/23/20 02:00 96/69 02/23/20 01:11 98/66 02/23/20 01:00 103.0 110 20 102/71 95 Mechanical Ventilator 15.0 70 02/23/20 01:00 20 102/71 Mechanical Ventilator 70 02/23/20 01:00 102/71 02/23/20 00:45 29 95/62 Mechanical Ventilator 70 02/23/20 00:30 31 99/65 Mechanical Ventilator 70 02/23/20 00:30 99/65 02/23/20 00:15 22 87/52 Mechanical Ventilator 70 02/23/20 00:15 95/61 02/23/20 00:10 97/63 02/23/20 00:05 99/62 02/23/20 00:00 103.0 108 22 96/66 95 Mechanical Ventilator 15.0 70 02/23/20 00:00 22 96/66 Mechanical Ventilator 70 02/23/20 00:00 96/02/22/20 23:49 97 26 70 02/22/20 23:16 103.0 02/22/20 23:00 28 86/53 Mechanical Ventilator 70 02/22/20 23:00 86/53 02/22/20 23:00 103.0 105 28 86/53 95 Mechanical Ventilator 15.0 70 02/22/20 22:45 103.0 108 24 119/83 95 Mechanical Ventilator 15.0 70 02/22/20 22:45 29 119/83 Mechanical Ventilator 70 02/22/20 22:45 119/83 02/22/20 22:30 29 105/74 Mechanical Ventilator 70 02/22/20 22:15 33 113/68 Mechanical Ventilator 70 02/22/20 22:00 31 117/68 Mechanical Ventilator 70 02/22/20 21:45 29 136/78 Mechanical Ventilator 15.0 70 02/22/20 21:45 136/78 02/22/20 21:36 104.2 107 26 119/95 99 Mechanical Ventilator 15.0 70 02/22/20 20:56 102 31 Mechanical Ventilator 70 02/22/20 20:45 20 154/82 Mechanical Ventilator 15.0 70 02/22/20 20:45 152/82 02/22/20 20:45 98.3 117 22 132/80 94 Mechanical Ventilator 15.0 70 02/22/20 20:30 34 132/80 Mechanical Ventilator 70 02/22/20 20:15 30 117/90 Mechanical Ventilator 70 02/22/20 20:00 30 115/75 Mechanical Ventilator 70 02/22/20 19:45 73 21 Mechanical Ventilator 70 02/22/20 19:45 98.3 89 23 130/80 98 Mechanical Ventilator 15.0 70 02/22/20 19:45 23 132/78 Mechanical Ventilator 02/22/20 19:45 132/78 02/22/20 19:36 136/74 02/22/20 18:46 70 23 132/75 95 Mechanical Ventilator 70 02/22/20 18:45 23 132/75 Mechanical Ventilator 02/22/20 18:45 132/70 02/22/20 17:45 18 113/67 Mechanical Ventilator 02/22/20 17:45 113/67 02/22/20 17:43 59 18 119/67 99 Mechanical Ventilator 02/22/20 16:45 119/76 02/22/20 16:45 98.3 65 18 119/76 94 Mechanical Ventilator 02/22/20 16:34 18 119/76 Mechanical Ventilator 02/22/20 15:45 119/67 02/22/20 15:44 98.9 60 20 119/67 98 Mechanical Ventilator 70 02/22/20 15:34 20 119/67 Mechanical Ventilator 02/22/20 15:25 63 20 70 02/22/20 14:45 122/74 02/22/20 14:34 20 113/69 Mechanical Ventilator 02/22/20 14:25 89/53 02/22/20 14:19 20 122/74 Mechanical Ventilator 02/22/20 14:19 20 122/74 Mechanical Ventilator 02/22/20 13:56 61 20 70 02/22/20 13:45 113/65 02/22/20 13:45 59 20 113/65 96 Mechanical Ventilator 02/22/20 13:40 112/67 02/22/20 13:40 62 20 112/67 97 Mechanical Ventilator 02/22/20 13:35 102/63 02/22/20 13:35 102/63 02/22/20 13:30 78/53 02/22/20 13:30 78/53 02/22/20 13:30 62 20 Non-Rebreather 15.0 02/22/20 13:25 82/54 02/22/20 13:25 82/54 02/22/20 13:20 62 20 92/73 97 Non-Rebreather 15.0 02/22/20 13:20 92/73 02/22/20 13:15 89/53 02/22/20 12:20 100.9 64 22 83/51 90 Nasal Cannula 5.0 02/22/20 12:16 100.9 69 22 83/51 (62) 98 Nasal Cannula 5.0 Intake and Output 02/22/20 02/23/20 19:00 07:00 Intake Total 872.458 ml Output Total 500 ml Balance 372.458 ml Intake IV Total 872.458 ml Output Urine Total 500 ml # Bowel Movements 3 Laboratory Tests Test 02/22/20 12:08 02/22/20 12:28 02/22/20 15:05 02/23/20 08:45 White Blood Count 7.3 K/UL (4.8-10.8) 10.4 K/UL (4.8-10.8) Red Blood Count 3.93 M/UL (4.70-6.10) L 3.91 M/UL (4.70-6.10) L Hemoglobin 12.1 G/DL (14.2-18.0) L 11.7 G/DL (14.2-18.0) L Hematocrit 33.9 % (42.0-52.0) L 33.9 % (42.0-52.0) L Mean Corpuscular Volume 86 FL (80-99) 87 FL (80-99) Mean Corpuscular Hemoglobin 30.7 PG (27.0-31.0) 30.0 PG (27.0-31.0) Mean Corpuscular Hemoglobin Concent 35.6 G/DL (32.0-36.0) 34.6 G/DL (32.0-36.0) Red Cell Distribution Width 13.1 % (11.6-14.8) 13.3 % (11.6-14.8) Platelet Count 329 K/UL (150-450) 359 K/UL (150-450) Mean Platelet Volume 4.9 FL (6.5-10.1) L 5.0 FL (6.5-10.1) L Neutrophils (%) (Auto) 83.1 % (45.0-75.0) H % (45.0-75.0) Lymphocytes (%) (Auto) 12.2 % (20.0-45.0) L % (20.0-45.0) Monocytes (%) (Auto) 4.3 % (1.0-10.0) % (1.0-10.0) Eosinophils (%) (Auto) 0.0 % (0.0-3.0) % (0.0-3.0) Basophils (%) (Auto) 0.4 % (0.0-2.0) % (0.0-2.0) Prothrombin Time 12.3 SEC (9.30-11.50) H Prothromb Time International Ratio 1.2 (0.9-1.1) H Activated Partial Thromboplast Time 40 SEC (23-33) H D-Dimer 1.57 mg/L FEU (0.00-0.49) H 4.93 mg/L FEU (0.00-0.49) H Urine Color Yellow Urine Appearance Clear Urine pH 5 (4.5-8.0) Urine Specific [place] 1.015 (1.005-1.035) Urine Protein 3+ (NEGATIVE) H Urine Glucose (UA) Negative (NEGATIVE) Urine Ketones 1+ (NEGATIVE) H Urine Blood 1+ (NEGATIVE) H Urine Nitrite Negative (NEGATIVE) Urine Bilirubin 1+ (NEGATIVE) H Urine Ictotest Negative (NEGATIVE) Urine Urobilinogen 4 MG/DL (0.0-1.0) H Urine Leukocyte Esterase 1+ (NEGATIVE) H Urine RBC 0-2 /HPF (0 - 0) H Urine WBC 2-4 /HPF (0 - 0) Urine Squamous Epithelial Cells Occasional /LPF Urine Bacteria Few /HPF (NONE) Urine Mucus Few /LPF (NONE/OCC) H Sodium Level 150 MMOL/L (136-145) H 144 MMOL/L (136-145) Potassium Level 3.6 MMOL/L (3.5-5.1) 2.6 MMOL/L (3.5-5.1) *L Chloride Level 112 MMOL/L (98-107) H 109 MMOL/L (98-107) H Carbon Dioxide Level 28 MMOL/L (21-32) 21 MMOL/L (21-32) Anion Gap 10 mmol/L (5-15) 14 mmol/L (5-15) Blood Urea Nitrogen 20 mg/dL (7-18) H 15 mg/dL (7-18) Creatinine 0.6 MG/DL (0.55-1.30) 0.5 MG/DL (0.55-1.30) L Estimat Glomerular Filtration Rate > 60 mL/min (>60) > 60 mL/min (>60) Glucose Level 140 MG/DL (74-106) H 196 MG/DL (74-106) H Lactic Acid Level 2.80 mmol/L (0.4-2.0) H 2.60 mmol/L (0.66-2.22) H Calcium Level 7.8 MG/DL (8.5-10.1) L 7.0 MG/DL (8.5-10.1) L Total Bilirubin 1.1 MG/DL (0.2-1.0) H 1.1 MG/DL (0.2-1.0) H Direct Bilirubin 0.3 MG/DL (0.0-0.3) 0.6 MG/DL (0.0-0.3) H Aspartate Amino Transf (AST/SGOT) 35 U/L (15-37) 36 U/L (15-37) Alanine Aminotransferase (ALT/SGPT) 39 U/L (12-78) 28 U/L (12-78) Alkaline Phosphatase 85 U/L (46-116) 68 U/L (46-116) Total Creatine Kinase 118 U/L (26-308) Creatine Kinase MB 0.6 NG/ML (0.0-3.6) Creatine Kinase MB Relative Index 0.5 Troponin I 0.000 ng/mL (0.000-0.056) 1.659 ng/mL (0.000-0.056) Pro-B-Type Natriuretic Peptide 2269 pg/mL (0-125) H 70719 pg/mL (0-125) H Total Protein 6.6 G/DL (6.4-8.2) 5.8 G/DL (6.4-8.2) L Albumin 1.9 G/DL (3.4-5.0) L 1.6 G/DL (3.4-5.0) L Globulin 4.7 g/dL 4.2 g/dL Albumin/Globulin Ratio 0.4 (1.0-2.7) L 0.4 (1.0-2.7) L Arterial Blood pH 7.462 (7.350-7.450) Arterial Blood Partial Pressure CO2 34.4 mmHg (35.0-45.0) L Arterial Blood Partial Pressure O2 49.1 mmHg (75.0-100.0) Arterial Blood HCO3 24.0 mmol/L (22.0-26.0) Arterial Blood Oxygen Saturation 84.6 % (95-100) *L Arterial Blood Base Excess 0.6 (-2-2) Kuldeep Test Positive Differential Total Cells Counted 100 Neutrophils % (Manual) 90 % (45-75) H Lymphocytes % (Manual) 6 % (20-45) L Monocytes % (Manual) 1 % (1-10) Eosinophils % (Manual) 0 % (0-3) Basophils % (Manual) 0 % (0-2) Band Neutrophils 3 % (0-8) Platelet Estimate Adequate Platelet Morphology Normal Red Blood Cell Morphology Normal Triglycerides Level 142 MG/DL (30-150) Thyroid Stimulating Hormone (TSH) 0.255 uiU/mL (0.358-3.740) Test 02/23/20 09:48 Arterial Blood pH 7.367 (7.350-7.450) Arterial Blood Partial Pressure CO2 34.8 mmHg (35.0-45.0) L Arterial Blood Partial Pressure O2 53.9 mmHg (75.0-100.0) L Arterial Blood HCO3 19.5 mmol/L (22.0-26.0) L Arterial Blood Oxygen Saturation 86.2 % (95-100) *L Arterial Blood Base Excess -5.0 (-2-2) L Kuldeep Test Positive Objective HEAD AND NECK: Showed no JVD. He is orally intubated. LUNGS: Decreased breath sounds and coarse rhonchi. CARDIOVASCULAR: Regular S1 and S2 with no gallop. ABDOMEN: Soft. EXTREMITIES: No pitting edema. Deric Garcia MD Feb 23, 2020 12:06
--- NOTE | 2020-02-23 12:27 | Nephrology Progress Note ---
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 # h/o DVT # schizophrenia, bipolar - continue icu care - on D51/2NS + 20 kcl at 75 cc/hr - replete K - levophed drip - antibiotics per ICU - trend lactic acid - follow cx - vent management per pulmonary - monitor lytes - BG control - hold antihypertensive Subjective ROS Limited/Unobtainable: Yes Subjective potassium 2.8 repleted remains intubated Objective Objective Last 24 Hour Vital Signs Date Time Temp Pulse Resp B/P (MAP) Pulse Ox O2 Delivery O2 Flow Rate FiO2 02/23/20 12:00 90 02/23/20 11:00 27 Mechanical Ventilator 80 02/23/20 11:00 95/63 02/23/20 10:30 83 29 80 02/23/20 10:03 80 02/23/20 09:09 86 30 70 02/23/20 09:05 99.9 87 30 117/80 98 Room Air 15.0 70 02/23/20 09:05 99.9 87 30 117/80 98 Mechanical Ventilator 15.0 70 02/23/20 09:00 Mechanical Ventilator 02/23/20 09:00 92 02/23/20 09:00 80 02/23/20 08:24 103/70 02/23/20 08:03 99.9 74 29 103/70 96 Mechanical Ventilator 15.0 70 02/23/20 08:00 20 112/76 Mechanical Ventilator 70 02/23/20 08:00 112/76 02/23/20 07:30 87 30 70 02/23/20 07:00 103.0 90 34 138/57 97 Mechanical Ventilator 15.0 70 02/23/20 07:00 34 138/57 Mechanical Ventilator 70 02/23/20 07:00 138/57 02/23/20 06:00 103.0 90 32 137/57 97 Mechanical Ventilator 15.0 70 02/23/20 06:00 32 137/57 Mechanical Ventilator 70 02/23/20 06:00 137/57 02/23/20 05:29 98 26 70 02/23/20 05:00 32 134/52 Mechanical Ventilator 70 02/23/20 05:00 134/52 02/23/20 05:00 103.0 90 32 134/52 95 Mechanical Ventilator 15.0 70 02/23/20 04:46 102/38 02/23/20 04:45 34 102/38 Mechanical Ventilator 70 02/23/20 04:30 32 102/38 Mechanical Ventilator 70 02/23/20 04:30 102/38 02/23/20 04:15 28 100/44 Mechanical Ventilator 70 02/23/20 04:15 100/44 02/23/20 04:10 127/50 02/23/20 04:05 128/51 02/23/20 04:00 28 124/49 Mechanical Ventilator 70 02/23/20 04:00 28 124/49 Mechanical Ventilator 70 02/23/20 04:00 124/49 02/23/20 04:00 103.0 95 28 124/49 95 Mechanical Ventilator 15.0 70 02/23/20 03:49 106 27 70 02/23/20 03:00 103.0 109 29 94/64 95 Mechanical Ventilator 15.0 70 02/23/20 03:00 29 94/64 Mechanical Ventilator 70 02/23/20 03:00 94/64 02/23/20 02:07 112 39 70 02/23/20 02:00 103.0 111 27 96/69 95 Mechanical Ventilator 15.0 70 02/23/20 02:00 27 96/69 Mechanical Ventilator 70 02/23/20 02:00 96/69 02/23/20 01:11 98/66 02/23/20 01:00 103.0 110 20 102/71 95 Mechanical Ventilator 15.0 70 02/23/20 01:00 20 102/71 Mechanical Ventilator 70 02/23/20 01:00 102/71 02/23/20 00:45 29 95/62 Mechanical Ventilator 70 02/23/20 00:30 31 99/65 Mechanical Ventilator 70 02/23/20 00:30 99/65 02/23/20 00:15 22 87/52 Mechanical Ventilator 70 02/23/20 00:15 95/61 02/23/20 00:10 97/63 02/23/20 00:05 99/62 02/23/20 00:00 103.0 108 22 96/66 95 Mechanical Ventilator 15.0 70 02/23/20 00:00 22 96/66 Mechanical Ventilator 70 02/23/20 00:00 96/66 02/22/20 23:49 97 26 70 02/22/20 23:16 103.0 02/22/20 23:00 28 86/53 Mechanical Ventilator 70 02/22/20 23:00 86/53 02/22/20 23:00 103.0 105 28 86/53 95 Mechanical Ventilator 15.0 70 02/22/20 22:45 103.0 108 24 119/83 95 Mechanical Ventilator 15.0 70 02/22/20 22:45 29 119/83 Mechanical Ventilator 70 02/22/20 22:45 119/83 02/22/20 22:30 29 105/74 Mechanical Ventilator 70 02/22/20 22:15 33 113/68 Mechanical Ventilator 70 02/22/20 22:00 31 117/68 Mechanical Ventilator 70 02/22/20 21:45 29 136/78 Mechanical Ventilator 15.0 70 02/22/20 21:45 136/78 02/22/20 21:36 104.2 107 26 119/95 99 Mechanical Ventilator 15.0 70 02/22/20 20:56 102 31 Mechanical Ventilator 70 02/22/20 20:45 20 154/82 Mechanical Ventilator 15.0 70 02/22/20 20:45 152/82 02/22/20 20:45 98.3 117 22 132/80 94 Mechanical Ventilator 15.0 70 02/22/20 20:30 34 132/80 Mechanical Ventilator 70 02/22/20 20:15 30 117/90 Mechanical Ventilator 70 02/22/20 20:00 30 115/75 Mechanical Ventilator 70 02/22/20 19:45 73 21 Mechanical Ventilator 70 02/22/20 19:45 98.3 89 23 130/80 98 Mechanical Ventilator 15.0 70 02/22/20 19:45 23 132/78 Mechanical Ventilator 02/22/20 19:45 132/78 02/22/20 19:36 136/74 02/22/20 18:46 70 23 132/75 95 Mechanical Ventilator 70 02/22/20 18:45 23 132/75 Mechanical Ventilator 02/22/20 18:45 132/70 02/22/20 17:45 18 113/67 Mechanical Ventilator 02/22/20 17:45 113/67 02/22/20 17:43 59 18 119/67 99 Mechanical Ventilator 02/22/20 16:45 119/76 02/22/20 16:45 98.3 65 18 119/76 94 Mechanical Ventilator 02/22/20 16:34 18 119/76 Mechanical Ventilator 02/22/20 15:45 119/67 02/22/20 15:44 98.9 60 20 119/67 98 Mechanical Ventilator 70 02/22/20 15:34 20 119/67 Mechanical Ventilator 02/22/20 15:25 63 20 70 02/22/20 14:45 122/74 02/22/20 14:34 20 113/69 Mechanical Ventilator 02/22/20 14:25 89/53 02/22/20 14:19 20 122/74 Mechanical Ventilator 02/22/20 14:19 20 122/74 Mechanical Ventilator 02/22/20 13:56 61 20 70 02/22/20 13:45 113/65 02/22/20 13:45 59 20 113/65 96 Mechanical Ventilator 02/22/20 13:40 112/67 02/22/20 13:40 62 20 112/67 97 Mechanical Ventilator 02/22/20 13:35 102/63 02/22/20 13:35 102/63 02/22/20 13:30 78/53 02/22/20 13:30 78/53 02/22/20 13:30 62 20 Non-Rebreather 15.0 02/22/20 13:25 82/54 02/22/20 13:25 82/54 02/22/20 13:20 62 20 92/73 97 Non-Rebreather 15.0 02/22/20 13:20 92/73 02/22/20 13:15 89/53 Intake and Output 02/22/20 02/23/20 19:00 07:00 Intake Total 872.458 ml Output Total 500 ml Balance 372.458 ml Intake IV Total 872.458 ml Output Urine Total 500 ml # Bowel Movements 3 Laboratory Tests 02/22/20 12:28: Arterial Blood pH 7.462H, Arterial Blood Partial Pressure CO2 34.4L, Arterial Blood Partial Pressure O2 49.1*L, Arterial Blood HCO3 24.0, Arterial Blood Oxygen Saturation 84.6*L, Arterial Blood Base Excess 0.6, Kuldeep Test Positive 02/22/20 15:05: Lactic Acid Level 2.60H 02/23/20 08:45: White Blood Count 10.4, Red Blood Count 3.91L, Hemoglobin 11.7L, Hematocrit 33.9L, Mean Corpuscular Volume 87, Mean Corpuscular Hemoglobin 30.0, Mean Corpuscular Hemoglobin Concent 34.6, Red Cell Distribution Width 13.3, Platelet Count 359, Mean Platelet Volume 5.0L, Neutrophils (%) (Auto) , Lymphocytes (%) ( Auto) , Monocytes (%) (Auto) , Eosinophils (%) (Auto) , Basophils (%) (Auto) , Differential Total Cells Counted 100, Neutrophils % (Manual) 90H, Lymphocytes % (Manual) 6L, Monocytes % (Manual) 1, Eosinophils % (Manual) 0, Basophils % ( Manual) 0, Band Neutrophils 3, Platelet Estimate Adequate, Platelet Morphology Normal, Red Blood Cell Morphology Normal, D-Dimer 4.93H, Sodium Level 144, Potassium Level 2.6*L, Chloride Level 109H, Carbon Dioxide Level 21, Anion Gap 14, Blood Urea Nitrogen 15, Creatinine 0.5L, Estimat Glomerular Filtration Rate > 60, Glucose Level 196H, Calcium Level 7.0L, Total Bilirubin 1.1H, Direct Bilirubin 0.6H, Aspartate Amino Transf (AST/SGOT) 36, Alanine Aminotransferase ( ALT/SGPT) 28, Alkaline Phosphatase 68, Troponin I 1.659H, Pro-B-Type Natriuretic Peptide 71183T, Total Protein 5.8L, Albumin 1.6L, Globulin 4.2, Albumin/Globulin Ratio 0.4L, Triglycerides Level 142, Thyroid Stimulating Hormone (TSH) 0.255L 02/23/20 09:48: Arterial Blood pH 7.367, Arterial Blood Partial Pressure CO2 34.8L, Arterial Blood Partial Pressure O2 53.9L, Arterial Blood HCO3 19.5L, Arterial Blood Oxygen Saturation 86.2*L, Arterial Blood Base Excess -5.0L, Kuldeep Test Positive Height (Feet): 5 Height (Inches): 5.00 Weight (Pounds): 140 Objective General Appearance: other - intubated Lines, tubes and drains: peripheral HEENT: normocephalic, atraumatic, other - dry mucous membranes Neck: non-tender, normal alignment Respiratory/Chest: rhonchi - bilaterally Cardiovascular/Chest: normal peripheral pulses, normal rate Abdomen: soft, hypoactive bowel sounds Extremities: normal range of motion, no calf tenderness, non-pitting, no edema Skin Exam: normal pigmentation, warm/dry Dwayne Salas M.D. Feb 23, 2020 12:27
[2020-02-23] MEDS: Vancomycin 750 MG in NS 275 ML IVPB SCH (12:38)
--- NOTE | 2020-02-23 14:06 | Diagnostic Imaging Report ---
Indication: Post orogastric tube placement Technique: Supine view of the abdomen Comparison: No comparison abdominal radiographs. Reference made to chest radiograph dated 02/22/2020 Findings: Interim placement of an orogastric tube, tip which projects at the level gastric fundus, proximal sidehole well beyond the gastroesophageal junction. Bowel gas pattern is unremarkable except for evidence of hepatocolonic interposition. Extensive pleural and parenchymal disease is seen at the left lung base, less extensive parenchymal disease at the right lung base. Impression: Satisfactory orogastric tube placement Other findings as noted
[2020-02-23] MEDS ORDERED: FUROSEMIDE20 M1 ORAL ×2 (15:11→15:12)
[2020-02-23] MEDS: Norepinephrine Bitartrate 8 MG in D5W 500ml 492 ML IV SCH ×4 (16:00→20:31)
[2020-02-23] MEDS ORDERED: Norepinephrine Bitartrate 8 MG in D5W 500ml 550 ML IV SCH (16:00)
--- NOTE | 2020-02-23 17:02 | General Progress Note ---
Assessment/Plan Assessment/Plan: 74 y/o M from [place], PMH HTN, DMT2, dementia, Alzheimers dx, h/o CVA/TIA, h/o DVT, schizophrenia who presents for Fever. In the ED, pt found to be septic, Tm 100.9 , RR22, WBC 7.3, Lactic acid 2.8, and ABG revealed acute hypoxic respiratory failure. Pt was intubated and will be admitted to ICU for acute hypoxic respiratory failure and pending COVID r/o. #Septic shock 2/2 #Acute Hypoxic Respiratory Failure #HCAP #Suspect COVID #Lactic Acidosis -Appreciate ICU level care -appreciate Pulm/CCU management -pt intubated in ED, 02/21 -vent management per CCU team/Pulm, wean as tolerated -Cont. COVID isolation protocol -CXR reviewed -COVID PCR pending -elevated d-dimer and BNP likely 2/2 above -cont. norepi, wean as tolerated -d/c propofol -start fentanyl for sedation -cont. vanc/zosyn for now -BCx, Scx, UCx pending -echo ordered -ID consulted, discussed case w/ID, Dr. Estrada -Pulm, Dr. Bland, consulted, recs appreciated #Hypernatremia -likely 2/2 dehydration -careful w/IVF given BNP elevated -daily BMPs -nephro consulted, recs appreciated #Type 2 DM -holding home metformin -ISS sensitive, accuchecks q6h #HTN -holding home bp meds given septic shock -holding Lasix 20 mg q daily, benazepril 5 mg q daily #Alzheimer disease #Dementia #Schizophrenia #Bipolar dx -reviewed MAR from [place], no home meds for schizophrenia/bipolar dx noted -holding home aricept given clinical picture DVT PPx: lovenox Time spent: 71 mins, 35 mins spent on critical care noted below: Critical Care Services performed include: Telemetry Review Hemodynamic measurement interpretation Laboratory data review and interpretation Radiology image review and interpretation Interpretation of ABG's Discussion of patient's care with ICU team, Nursing staff and/or consulting services Time of note may not reflect time of encounter. Subjective Allergies: Coded Allergies: No Known Allergies (Unverified , 01/19/19) Subjective late entry f/u for acute respiratory failure s/p intubation on 02/21. Patient remains intubated, unable to obtain ROS due to clinical picture. Tm 104.2 overngiht. lactic acid remains high Objective Last 24 Hour Vital Signs Date Time Temp Pulse Resp B/P (MAP) Pulse Ox O2 Delivery O2 Flow Rate FiO2 02/23/20 16:03 92/62 02/23/20 16:00 Mechanical Ventilator 02/23/20 16:00 88 02/23/20 16:00 90 02/23/20 15:45 86 23 95/66 (76) 99 02/23/20 15:30 85 18 99/70 (80) 98 02/23/20 15:15 85 92/62 (72) 98 02/23/20 15:00 87 29 80 02/23/20 15:00 87 28 96/63 (74) 98 02/23/20 14:48 88 02/23/20 14:45 85 26 92/67 (75) 99 02/23/20 14:30 86 27 93/68 (76) 99 02/23/20 14:15 92 28 94/60 (71) 100 02/23/20 14:00 91 21 95/58 (70) 99 02/23/20 13:45 91 28 93/60 (71) 99 02/23/20 13:30 88 27 92/60 (71) 100 02/23/20 13:15 90 27 90/59 (69) 100 02/23/20 13:05 85 30 80 02/23/20 13:00 89 27 94/61 (72) 100 02/23/20 13:00 89 23 95/59 (71) 100 02/23/20 12:45 86 26 92/60 (71) 100 02/23/20 12:30 88 21 93/61 (72) 100 02/23/20 12:15 98.2 86 27 93/61 (72) 100 02/23/20 12:00 Mechanical Ventilator 02/23/20 12:00 110/58 02/23/20 12:00 27 110/58 Mechanical Ventilator 90 02/23/20 12:00 90 02/23/20 12:00 86 27 110/58 (75) 100 02/23/20 11:45 94 30 90/67 (75) 100 02/23/20 11:30 85 26 95/63 (74) 100 02/23/20 11:15 87 22 111/68 (82) 99 02/23/20 11:00 27 Mechanical Ventilator 80 02/23/20 11:00 95/63 02/23/20 11:00 21 95/63 Mechanical Ventilator 80 02/23/20 11:00 85 21 91/76 (81) 97 02/23/20 10:45 86 21 99/59 (72) 97 02/23/20 10:30 83 29 80 02/23/20 10:30 79 25 99/59 (72) 100 02/23/20 10:15 79 27 87/61 (70) 100 02/23/20 10:03 80 02/23/20 10:00 79 26 80/53 (62) 100 02/23/20 10:00 26 80/53 Mechanical Ventilator 80 02/23/20 09:45 95 26 64/34 (44) 94 02/23/20 09:30 96 26 224/202 (209) 95 02/23/20 09:15 98.0 93 20 205/172 (183) 97 02/23/20 09:09 86 30 70 02/23/20 09:05 99.9 87 30 117/80 98 Room Air 15.0 70 02/23/20 09:05 99.9 87 30 117/80 98 Mechanical Ventilator 15.0 70 02/23/20 09:00 Mechanical Ventilator 02/23/20 09:00 26 198/183 Mechanical Ventilator 80 02/23/20 09:00 92 02/23/20 09:00 80 02/23/20 08:24 103/70 02/23/20 08:03 99.9 74 29 103/70 96 Mechanical Ventilator 15.0 70 02/23/20 08:00 20 112/76 Mechanical Ventilator 70 02/23/20 08:00 112/76 02/23/20 07:30 87 30 70 02/23/20 07:00 103.0 90 34 138/57 97 Mechanical Ventilator 15.0 70 02/23/20 07:00 34 138/57 Mechanical Ventilator 70 02/23/20 07:00 138/57 02/23/20 06:00 103.0 90 32 137/57 97 Mechanical Ventilator 15.0 70 02/23/20 06:00 32 137/57 Mechanical Ventilator 70 02/23/20 06:00 137/57 02/23/20 05:29 98 26 70 02/23/20 05:00 32 134/52 Mechanical Ventilator 70 02/23/20 05:00 134/52 02/23/20 05:00 103.0 90 32 134/52 95 Mechanical Ventilator 15.0 70 02/23/20 04:46 102/38 02/23/20 04:45 34 102/38 Mechanical Ventilator 70 02/23/20 04:30 32 102/38 Mechanical Ventilator 70 02/23/20 04:30 102/38 02/23/20 04:15 28 100/44 Mechanical Ventilator 70 02/23/20 04:15 100/44 02/23/20 04:10 127/50 02/23/20 04:05 128/51 02/23/20 04:00 28 124/49 Mechanical Ventilator 70 02/23/20 04:00 28 124/49 Mechanical Ventilator 70 02/23/20 04:00 124/49 02/23/20 04:00 103.0 95 28 124/49 95 Mechanical Ventilator 15.0 70 02/23/20 03:49 106 27 70 02/23/20 03:00 103.0 109 29 94/64 95 Mechanical Ventilator 15.0 70 02/23/20 03:00 29 94/64 Mechanical Ventilator 70 02/23/20 03:00 94/64 02/23/20 02:07 112 39 70 02/23/20 02:00 103.0 111 27 96/69 95 Mechanical Ventilator 15.0 70 02/23/20 02:00 27 96/69 Mechanical Ventilator 70 02/23/20 02:00 96/69 02/23/20 01:11 98/66 02/23/20 01:00 103.0 110 20 102/71 95 Mechanical Ventilator 15.0 70 02/23/20 01:00 20 102/71 Mechanical Ventilator 70 02/23/20 01:00 102/71 02/23/20 00:45 29 95/62 Mechanical Ventilator 70 02/23/20 00:30 31 99/65 Mechanical Ventilator 70 02/23/20 00:30 99/65 02/23/20 00:15 22 87/52 Mechanical Ventilator 70 02/23/20 00:15 95/61 02/23/20 00:10 97/63 02/23/20 00:05 99/62 02/23/20 00:00 103.0 108 22 96/66 95 Mechanical Ventilator 15.0 70 02/23/20 00:00 22 96/66 Mechanical Ventilator 70 02/23/20 00:00 96/02/22/20 23:49 97 26 70 02/22/20 23:16 103.0 02/22/20 23:00 28 86/53 Mechanical Ventilator 70 02/22/20 23:00 86/53 02/22/20 23:00 103.0 105 28 86/53 95 Mechanical Ventilator 15.0 70 02/22/20 22:45 103.0 108 24 119/83 95 Mechanical Ventilator 15.0 70 02/22/20 22:45 29 119/83 Mechanical Ventilator 70 02/22/20 22:45 119/83 02/22/20 22:30 29 105/74 Mechanical Ventilator 70 02/22/20 22:15 33 113/68 Mechanical Ventilator 70 02/22/20 22:00 31 117/68 Mechanical Ventilator 70 02/22/20 21:45 29 136/78 Mechanical Ventilator 15.0 70 02/22/20 21:45 136/78 02/22/20 21:36 104.2 107 26 119/95 99 Mechanical Ventilator 15.0 70 02/22/20 20:56 102 31 Mechanical Ventilator 70 02/22/20 20:45 20 154/82 Mechanical Ventilator 15.0 70 02/22/20 20:45 152/82 02/22/20 20:45 98.3 117 22 132/80 94 Mechanical Ventilator 15.0 70 02/22/20 20:30 34 132/80 Mechanical Ventilator 70 02/22/20 20:15 30 117/90 Mechanical Ventilator 70 02/22/20 20:00 30 115/75 Mechanical Ventilator 70 02/22/20 19:45 73 21 Mechanical Ventilator 70 02/22/20 19:45 98.3 89 23 130/80 98 Mechanical Ventilator 15.0 70 02/22/20 19:45 23 132/78 Mechanical Ventilator 02/22/20 19:45 132/78 02/22/20 19:36 136/74 02/22/20 18:46 70 23 132/75 95 Mechanical Ventilator 70 02/22/20 18:45 23 132/75 Mechanical Ventilator 02/22/20 18:45 132/70 02/22/20 17:45 18 113/67 Mechanical Ventilator 02/22/20 17:45 113/67 02/22/20 17:43 59 18 119/67 99 Mechanical Ventilator Intake and Output 02/22/20 02/23/20 19:00 07:00 Intake Total 872.458 ml Output Total 500 ml Balance 372.458 ml Intake IV Total 872.458 ml Output Urine Total 500 ml # Bowel Movements 3 Laboratory Tests 02/23/20 08:45: White Blood Count 10.4, Red Blood Count 3.91L, Hemoglobin 11.7L, Hematocrit 33.9L, Mean Corpuscular Volume 87, Mean Corpuscular Hemoglobin 30.0, Mean Corpuscular Hemoglobin Concent 34.6, Red Cell Distribution Width 13.3, Platelet Count 359, Mean Platelet Volume 5.0L, Neutrophils (%) (Auto) , Lymphocytes (%) ( Auto) , Monocytes (%) (Auto) , Eosinophils (%) (Auto) , Basophils (%) (Auto) , Differential Total Cells Counted 100, Neutrophils % (Manual) 90H, Lymphocytes % (Manual) 6L, Monocytes % (Manual) 1, Eosinophils % (Manual) 0, Basophils % ( Manual) 0, Band Neutrophils 3, Platelet Estimate Adequate, Platelet Morphology Normal, Red Blood Cell Morphology Normal, D-Dimer 4.93H, Sodium Level 144, Potassium Level 2.6*L, Chloride Level 109H, Carbon Dioxide Level 21, Anion Gap 14, Blood Urea Nitrogen 15, Creatinine 0.5L, Estimat Glomerular Filtration Rate > 60, Glucose Level 196H, Calcium Level 7.0L, Total Bilirubin 1.1H, Direct Bilirubin 0.6H, Aspartate Amino Transf (AST/SGOT) 36, Alanine Aminotransferase ( ALT/SGPT) 28, Alkaline Phosphatase 68, Troponin I 1.659H, Pro-B-Type Natriuretic Peptide 67374K, Total Protein 5.8L, Albumin 1.6L, Globulin 4.2, Albumin/Globulin Ratio 0.4L, Triglycerides Level 142, Thyroid Stimulating Hormone (TSH) 0.255L 02/23/20 09:48: Arterial Blood pH 7.367, Arterial Blood Partial Pressure CO2 34.8L, Arterial Blood Partial Pressure O2 53.9L, Arterial Blood HCO3 19.5L, Arterial Blood Oxygen Saturation 86.2*L, Arterial Blood Base Excess -5.0L, Kuldeep Test Positive 02/23/20 13:35: Lactic Acid Level 4.00H Height (Feet): 5 Height (Inches): 5.00 Weight (Pounds): 140 Objective General: intubated, sedated HEENT: NCAT, ETT in place, OG tube in place CV: RRR on tele Pulm: equal rise in lungs b/l GI: abd appears non-distended Ext: No lower extremity edema bilaterally Gosia Nunez M.D. Feb 23, 2020 17:02
[2020-02-23] MEDS: Enoxaparin 40mg Inj SUBQ SCH (17:04)
[2020-02-23] MEDS ORDERED: Rocuronium Bromide 50mg/5ml Inj IV ONE (19:45)
[2020-02-23] MEDS ORDERED: Etomidate 40mg/20ml Inj IV ONE (19:45)
[2020-02-23] MEDS: Dyna-Hex 2% Top Sol 2oz TOPIC SCH (20:30)
--- NOTE | 2020-02-23 21:20 | Infectious Diseases Prog Note ---
Assessment/Plan Assessment/Plan A) 1) sepsis, pna, shock 2) respiratory failure, vent 3) rule out covid-19 virus infection P) 1) zosyn, vancomycin 2) hydroxychloroquine started 3I f/u on cultures, await covid testing 4) poor prognosis Subjective Constitutional: Reports: fever HEENT: Reports: congestion Respiratory: Reports: shortness of breath Cardiovascular: Reports: other Gastrointestinal/Abdominal: Denies: nausea, vomiting Skin: Denies: rash Allergies: Coded Allergies: No Known Allergies (Unverified , 01/19/19) Objective Vital Signs Last 24 Hour Vital Signs Date Time Temp Pulse Resp B/P (MAP) Pulse Ox O2 Delivery O2 Flow Rate FiO2 02/23/20 21:14 94 29 80 02/23/20 20:31 76/50 02/23/20 19:30 95 30 80 02/23/20 19:00 98/64 02/23/20 19:00 22 Mechanical Ventilator 90 02/23/20 19:00 87 22 98/64 (75) 98 02/23/20 18:30 89 20 99/68 (78) 98 02/23/20 18:00 98/69 02/23/20 18:00 26 Mechanical Ventilator 90 02/23/20 18:00 86 26 98/69 (79) 98 02/23/20 17:30 87 22 103/70 (81) 99 02/23/20 17:15 87 25 102/67 (79) 99 02/23/20 17:00 83 27 99/66 (77) 98 02/23/20 17:00 99/66 02/23/20 17:00 23 Mechanical Ventilator 90 02/23/20 16:45 86 26 95/67 (76) 97 02/23/20 16:37 85 27 80 02/23/20 16:30 84 24 98/62 (74) 97 02/23/20 16:15 84 26 103/68 (80) 98 02/23/20 16:00 Mechanical Ventilator 02/23/20 16:00 88 02/23/20 16:00 103/68 02/23/20 16:00 27 Mechanical Ventilator 90 02/23/20 16:00 102/67 02/23/20 16:00 90 02/23/20 16:00 98.8 86 27 102/67 (79) 98 02/23/20 15:45 86 23 95/66 (76) 99 02/23/20 15:30 85 18 99/70 (80) 98 02/23/20 15:15 85 92/62 (72) 98 02/23/20 15:00 87 29 80 02/23/20 15:00 24 Mechanical Ventilator 90 02/23/20 15:00 96/63 02/23/20 15:00 87 28 96/63 (74) 98 02/23/20 14:48 88 02/23/20 14:45 85 26 92/67 (75) 99 02/23/20 14:30 86 27 93/68 (76) 99 02/23/20 14:15 92 28 94/60 (71) 100 02/23/20 14:00 91 21 95/58 (70) 99 02/23/20 14:00 21 Mechanical Ventilator 90 02/23/20 14:00 95/58 02/23/20 13:45 91 28 93/60 (71) 99 02/23/20 13:30 88 27 92/60 (71) 100 02/23/20 13:15 27 Mechanical Ventilator 90 02/23/20 13:15 90 27 90/59 (69) 100 02/23/20 13:05 85 30 80 02/23/20 13:00 89 27 94/61 (72) 100 02/23/20 13:00 23 Mechanical Ventilator 90 02/23/20 13:00 95/59 02/23/20 13:00 89 23 95/59 (71) 100 02/23/20 12:45 26 Mechanical Ventilator 90 02/23/20 12:45 86 26 92/60 (71) 100 02/23/20 12:30 88 21 93/61 (72) 100 02/23/20 12:30 21 Mechanical Ventilator 90 02/23/20 12:15 27 Mechanical Ventilator 90 02/23/20 12:15 98.2 86 27 93/61 (72) 100 02/23/20 12:00 Mechanical Ventilator 02/23/20 12:00 27 Mechanical Ventilator 90 02/23/20 12:00 110/58 02/23/20 12:00 27 110/58 Mechanical Ventilator 90 02/23/20 12:00 90 02/23/20 12:00 86 27 110/58 (75) 100 4/28/20 11:45 30 Mechanical Ventilator 80 02/23/20 11:45 94 30 90/67 (75) 100 02/23/20 11:30 85 26 95/63 (74) 100 02/23/20 11:30 26 Mechanical Ventilator 80 02/23/20 11:15 87 22 111/68 (82) 99 02/23/20 11:15 22 Mechanical Ventilator 80 02/23/20 11:00 27 Mechanical Ventilator 80 02/23/20 11:00 95/63 02/23/20 11:00 21 95/63 Mechanical Ventilator 80 02/23/20 11:00 95/63 02/23/20 11:00 85 21 91/76 (81) 97 02/23/20 10:45 86 21 99/59 (72) 97 02/23/20 10:30 83 29 80 02/23/20 10:30 79 25 99/59 (72) 100 02/23/20 10:15 79 27 87/61 (70) 100 02/23/20 10:03 80 02/23/20 10:00 79 26 80/53 (62) 100 02/23/20 10:00 26 80/53 Mechanical Ventilator 80 02/23/20 10:00 80/53 02/23/20 09:45 95 26 64/34 (44) 94 02/23/20 09:45 64/34 02/23/20 09:30 96 26 224/202 (209) 95 02/23/20 09:15 98.0 93 20 205/172 (183) 97 02/23/20 09:09 86 30 70 02/23/20 09:05 99.9 87 30 117/80 98 Room Air 15.0 70 02/23/20 09:05 99.9 87 30 117/80 98 Mechanical Ventilator 15.0 70 02/23/20 09:00 Mechanical Ventilator 02/23/20 09:00 26 198/183 Mechanical Ventilator 80 02/23/20 09:00 198/183 02/23/20 09:00 92 02/23/20 09:00 80 02/23/20 08:24 103/70 02/23/20 08:03 99.9 74 29 103/70 96 Mechanical Ventilator 15.0 70 02/23/20 08:00 20 112/76 Mechanical Ventilator 70 02/23/20 08:00 112/76 02/23/20 07:30 87 30 70 02/23/20 07:00 103.0 90 34 138/57 97 Mechanical Ventilator 15.0 70 02/23/20 07:00 34 138/57 Mechanical Ventilator 70 02/23/20 07:00 138/57 02/23/20 06:00 103.0 90 32 137/57 97 Mechanical Ventilator 15.0 70 02/23/20 06:00 32 137/57 Mechanical Ventilator 70 02/23/20 06:00 137/57 02/23/20 05:29 98 26 70 02/23/20 05:00 32 134/52 Mechanical Ventilator 70 02/23/20 05:00 134/52 02/23/20 05:00 103.0 90 32 134/52 95 Mechanical Ventilator 15.0 70 02/23/20 04:46 102/38 02/23/20 04:45 34 102/38 Mechanical Ventilator 70 02/23/20 04:30 32 102/38 Mechanical Ventilator 70 02/23/20 04:30 102/38 02/23/20 04:15 28 100/44 Mechanical Ventilator 70 02/23/20 04:15 100/44 02/23/20 04:10 127/50 02/23/20 04:05 128/51 02/23/20 04:00 28 124/49 Mechanical Ventilator 70 02/23/20 04:00 28 124/49 Mechanical Ventilator 70 02/23/20 04:00 124/49 02/23/20 04:00 103.0 95 28 124/49 95 Mechanical Ventilator 15.0 70 02/23/20 03:49 106 27 70 02/23/20 03:00 103.0 109 29 94/64 95 Mechanical Ventilator 15.0 70 02/23/20 03:00 29 94/64 Mechanical Ventilator 70 02/23/20 03:00 94/64 02/23/20 02:07 112 39 70 02/23/20 02:00 103.0 111 27 96/69 95 Mechanical Ventilator 15.0 70 02/23/20 02:00 27 96/69 Mechanical Ventilator 70 02/23/20 02:00 96/69 02/23/20 01:11 98/66 02/23/20 01:00 103.0 110 20 102/71 95 Mechanical Ventilator 15.0 70 02/23/20 01:00 20 102/71 Mechanical Ventilator 70 02/23/20 01:00 102/71 02/23/20 00:45 29 95/62 Mechanical Ventilator 70 02/23/20 00:30 31 99/65 Mechanical Ventilator 70 02/23/20 00:30 99/65 02/23/20 00:15 22 87/52 Mechanical Ventilator 70 02/23/20 00:15 95/61 02/23/20 00:10 97/63 02/23/20 00:05 99/62 02/23/20 00:00 103.0 108 22 96/66 95 Mechanical Ventilator 15.0 70 02/23/20 00:00 22 96/66 Mechanical Ventilator 70 02/23/20 00:00 96/66 02/22/20 23:49 97 26 70 02/22/20 23:16 103.0 02/22/20 23:00 28 86/53 Mechanical Ventilator 70 02/22/20 23:00 86/53 02/22/20 23:00 103.0 105 28 86/53 95 Mechanical Ventilator 15.0 70 02/22/20 22:45 103.0 108 24 119/83 95 Mechanical Ventilator 15.0 70 02/22/20 22:45 29 119/83 Mechanical Ventilator 70 02/22/20 22:45 119/83 02/22/20 22:30 29 105/74 Mechanical Ventilator 70 02/22/20 22:15 33 113/68 Mechanical Ventilator 70 02/22/20 22:00 31 117/68 Mechanical Ventilator 70 02/22/20 21:45 29 136/78 Mechanical Ventilator 15.0 70 02/22/20 21:45 136/78 02/22/20 21:36 104.2 107 26 119/95 99 Mechanical Ventilator 15.0 70 Height (Feet): 5 Height (Inches): 5.00 Weight (Pounds): 140 HEENT: normocephalic, atraumatic, anicteric Cardiovascular: normal rate, regular rhythm, no gallop/murmur Abdomen: normal bowel sounds, soft, non tender, no organomegaly Laboratory Tests Test 02/23/20 08:45 02/23/20 09:48 02/23/20 13:35 White Blood Count 10.4 K/UL (4.8-10.8) Red Blood Count 3.91 M/UL (4.70-6.10) L Hemoglobin 11.7 G/DL (14.2-18.0) L Hematocrit 33.9 % (42.0-52.0) L Mean Corpuscular Volume 87 FL (80-99) Mean Corpuscular Hemoglobin 30.0 PG (27.0-31.0) Mean Corpuscular Hemoglobin Concent 34.6 G/DL (32.0-36.0) Red Cell Distribution Width 13.3 % (11.6-14.8) Platelet Count 359 K/UL (150-450) Mean Platelet Volume 5.0 FL (6.5-10.1) L Neutrophils (%) (Auto) % (45.0-75.0) Lymphocytes (%) (Auto) % (20.0-45.0) Monocytes (%) (Auto) % (1.0-10.0) Eosinophils (%) (Auto) % (0.0-3.0) Basophils (%) (Auto) % (0.0-2.0) Differential Total Cells Counted 100 Neutrophils % (Manual) 90 % (45-75) H Lymphocytes % (Manual) 6 % (20-45) L Monocytes % (Manual) 1 % (1-10) Eosinophils % (Manual) 0 % (0-3) Basophils % (Manual) 0 % (0-2) Band Neutrophils 3 % (0-8) Platelet Estimate Adequate Platelet Morphology Normal Red Blood Cell Morphology Normal D-Dimer 4.93 mg/L FEU (0.00-0.49) H Sodium Level 144 MMOL/L (136-145) Potassium Level 2.6 MMOL/L (3.5-5.1) *L Chloride Level 109 MMOL/L (98-107) H Carbon Dioxide Level 21 MMOL/L (21-32) Anion Gap 14 mmol/L (5-15) Blood Urea Nitrogen 15 mg/dL (7-18) Creatinine 0.5 MG/DL (0.55-1.30) L Estimat Glomerular Filtration Rate > 60 mL/min (>60) Glucose Level 196 MG/DL (74-106) H Calcium Level 7.0 MG/DL (8.5-10.1) L Total Bilirubin 1.1 MG/DL (0.2-1.0) H Direct Bilirubin 0.6 MG/DL (0.0-0.3) H Aspartate Amino Transf (AST/SGOT) 36 U/L (15-37) Alanine Aminotransferase (ALT/SGPT) 28 U/L (12-78) Alkaline Phosphatase 68 U/L (46-116) Troponin I 1.659 ng/mL (0.000-0.056) Pro-B-Type Natriuretic Peptide 75715 pg/mL (0-125) H Total Protein 5.8 G/DL (6.4-8.2) L Albumin 1.6 G/DL (3.4-5.0) L Globulin 4.2 g/dL Albumin/Globulin Ratio 0.4 (1.0-2.7) L Triglycerides Level 142 MG/DL (30-150) Thyroid Stimulating Hormone (TSH) 0.255 uiU/mL (0.358-3.740) Arterial Blood pH 7.367 (7.350-7.450) Arterial Blood Partial Pressure CO2 34.8 mmHg (35.0-45.0) L Arterial Blood Partial Pressure O2 53.9 mmHg (75.0-100.0) L Arterial Blood HCO3 19.5 mmol/L (22.0-26.0) L Arterial Blood Oxygen Saturation 86.2 % (95-100) *L Arterial Blood Base Excess -5.0 (-2-2) L Kuldeep Test Positive Lactic Acid Level 4.00 mmol/L (0.4-2.0) H Current Medications Medications (Trade) Dose Ordered Sig/Cirilo Route PRN Reason Start Time Stop Time Status Last Admin Dose Admin Acetaminophen (Tylenol) 650 mg Q4H PRN ORAL Fever 02/22/20 14:15 03/23/20 14:14 Acetaminophen (Tylenol) 650 mg Q4H PRN ORAL Mild Pain (Pain Scale 1-3) 02/22/20 14:15 03/23/20 14:14 Acetaminophen (Tylenol) 650 mg Q4H PRN RECTAL Mild Pain (Pain Scale 1-3) 02/22/20 14:15 03/23/20 14:14 02/22/20 21:28 Acetaminophen (Tylenol) 650 mg Q4H PRN RECTAL FEVER 02/22/20 14:15 03/23/20 14:14 Chlorhexidine Gluconate (Maira-Hex 2%) 1 applic DAILY@2000 TOPIC 02/23/20 20:00 05/23/20 19:59 02/23/20 20:30 Dextrose (Dextrose 50%) 25 ml Q30M PRN IV Hypoglycemia 02/23/20 09:00 05/23/20 08:59 Dextrose (Dextrose 50%) 50 ml Q30M PRN IV Hypoglycemia 02/23/20 09:00 05/23/20 08:59 Dextrose/ Electrolytes 1,000 ml @ 100 mls/hr Q10H IV 02/23/20 13:00 03/23/20 21:59 02/23/20 12:40 Diphenhydramine HCl (Benadryl) 25 mg Q6H PRN ORAL Itching/Pruritis 02/22/20 14:15 03/23/20 14:14 Enoxaparin Sodium (Lovenox) 40 mg Q24H SUBQ 02/22/20 17:00 05/22/20 16:59 02/23/20 17:04 Fentanyl Citrate 2500 mcg/Sodium Chloride 250 ml @ 0 mls/hr Q24H IV 02/23/20 10:00 03/01/20 09:59 02/23/20 11:00 Insulin Aspart (NovoLOG) Q6HR SUBQ 02/23/20 12:00 05/23/20 11:59 02/23/20 17:13 Norepinephrine Bitartrate 8 mg/ Dextrose 500 ml @ 0 mls/hr Q24H IV 02/23/20 19:01 03/24/20 19:00 02/23/20 20:31 Pantoprazole (Protonix) 40 mg DAILY IVP 02/23/20 09:30 03/24/20 09:29 02/23/20 10:00 Piperacillin Sod/ Tazobactam Sod 3.375 gm/Dextrose 110 ml @ 27.5 mls/hr Q8H IVPB 02/23/20 01:00 03/01/20 00:59 02/23/20 17:03 Vancomycin HCl (Vanco rx to dose) 1 ea DAILY PRN MISC Per rx protocol 02/22/20 14:30 03/23/20 14:29 Vancomycin HCl 750 mg/Sodium Chloride 275 ml @ 183 mls/hr Q12HR@0000,1200 IVPB 02/23/20 00:00 02/28/20 00:00 02/23/20 12:38 Anselmo Estrada MD Feb 23, 2020 21:20
[2020-02-23] MEDS ORDERED: Hydroxychloroquine Fact Sheet MISC ONE (21:30)
[2020-02-24] VITALS (52 sets, daily range): BP systolic 74–126; BP diastolic 53–103
[2020-02-24] MEDS: NovoLOG Insulin Flexpen SUBQ SCH ×5 (00:37→23:56)
[2020-02-24] MEDS: Vancomycin 750 MG in NS 275 ML IVPB SCH (00:45)
--- NOTE | 2020-02-24 01:14 | Consultation ---
DATE OF CONSULTATION: 02/23/2020 INFECTIOUS DISEASE CONSULTATION CONSULTING PHYSICIAN: Anselmo Estrada MD. ATTENDING PHYSICIAN: Enedelia Arana MD. REFERRING PHYSICIAN: Kiara Nunez MD. REASON FOR CONSULTATION: Sepsis shock, pneumonia, possible COVID-19 virus infection, fevers. CHIEF COMPLAINT: The patient's chief complaint in to the hospital is COVID-19 infection, hypertension, sepsis shock. HISTORY OF PRESENT ILLNESS: This is a 74-year-old male who I saw yesterday in the emergency room, now is in the ICU at [facility] in septic shock. He has pneumonia and high suspicion for COVID-19 virus infection with sepsis shock. Infectious Disease consultation was requested. I have put patient on Vanco and Zosyn. I am adding hydroxychloroquine and also doxycycline for possible community-acquired pneumonia. He is also at high risk for aspiration pneumonia. Prognosis is poor. REVIEW OF SYSTEMS: CONSTITUTIONAL: Patient currently is on pressors, on a vent, and doing poorly. HEAD AND NECK: Orally intubated. CARDIAC: No pressors. GASTROINTESTINAL: No nausea, vomiting, or diarrhea. GENITOURINARY: He has Coates. PULMONARY: He is on a vent. Review of systems is limited in this patient. PAST MEDICAL HISTORY: The patient has a past medical history of Alzheimer's, dementia, diabetes, hypertension, CVA, TIA, DVT. ALLERGIES: No known drug allergies. SOCIAL HISTORY: Negative for smoking, alcohol, drug abuse. FAMILY HISTORY: Noncontributory. CURRENT MEDICATIONS: Noted and reviewed. Upon reviewing the MAR, he is on following medications. He is on hydroxychloroquine, doxycycline, Zosyn, Vanco, IV fluids, fentanyl, insulin, norepinephrine, chlorhexidine, acetaminophen. Outside medications noted and reconciliated. PHYSICAL EXAMINATION: VITAL SIGNS: Currently temperature is 98.8, T-max 103, pulse rate 95, respiratory rate 30, blood pressure 99/66, FiO2 80%. GENERAL: Lethargic, weak. HEAD AND NECK: Orally intubated. Normocephalic. HEART: Regular. No gallop or murmur. ABDOMEN: Soft. Positive bowel sounds. LUNGS: Bilateral rhonchi and rales. SKIN: No rash. MUSCULOSKELETAL: No effusion. Legs are without cellulitis. PERIPHERAL VASCULAR: No cyanosis or gangrene. GENITOURINARY: He has a Coates. Urine is slightly cloudy. LINE SITES: Without phlebitis. NEUROLOGIC: Poorly responsive, lethargic. LABORATORY DATA: UA, he had only 2 to 4 white cells. Creatinine 0.5. White count 10.4, hemoglobin-11.7. Cultures are pending. COVID-19 virus testing is pending. Chest x-ray shows severe worsening bilateral infiltrates, likely pneumonia. ASSESSMENT AND PLAN: 1. Patient has possible COVID-19 virus infection, which he is at high risk for. Rule out community-acquired and aspiration pneumonia. Patient has sepsis shock, fevers. Patient has respiratory failure, on vent. On pressors. Continue Vanco and Zosyn. Hydroxychloroquine is started. Also consider adding doxycycline. Continue Vanco, Zosyn, hydroxychloroquine for possible COVID-19 virus infection, pneumonia, sepsis shock, community-acquired pneumonia, aspiration pneumonia, fevers. Check cultures, laboratories, chest x-ray. Prognosis poor. I discussed with pharmacy about starting hydroxychloroquine. Vanco and Zosyn dosing per pharmacy and doxy will also be started. Continue supportive care. ICU care. 2. Respiratory failure, on vent. 3. ICU care. 4. Pressors. 5. Low potassium or hypokalemia. 6. Diabetes. 7. Hypertension. 8. Alzheimer's. 9. CVA. 10. TIA. 11. DVT. 12. Dementia. 13. Aspiration risk. 14. No known drug allergies. 15. Social history negative. 16. Family history is noncontributory. 17. MAR was noted. 18. Case discussed with RN. 19. Poor prognosis. 20. Skin care protocol. 21. Case discussed with Dr. Nunez. Anselmo Estrada M.D. DR: MANNY JOB#: [id number] CC: DARIAN
[2020-02-24] MEDS: Norepinephrine Bitartrate 8 MG in D5W 500ml 492 ML IV SCH ×4 (01:15→21:13)
[2020-02-24] MEDS: Piperacillin/Tazobactam 3.375 GM in D5W 110 ML IVPB SCH ×3 (01:20→17:37)
[2020-02-24 07:11] LABS: HEMOGLOBIN 11.3 G/DL (14.2-18.0); MEAN CORPUSCULAR VOLUME 88 FL (80-99); PLATELET COUNT 315 K/UL (150-450); RED BLOOD COUNT 3.76 M/UL (4.70-6.10); RED CELL DISTRIBUTION WIDTH 13.6 % (11.6-14.8); WHITE BLOOD COUNT 12.4 K/UL (4.8-10.8)
[2020-02-24 07:39] LABS: ALANINE AMINOTRANSFERASE 23 U/L (12-78); ALBUMIN 1.4 G/DL (3.4-5.0); ALBUMIN/GLOBULIN RATIO 0.3 (1.0-2.7); ALKALINE PHOSPHATASE 74 U/L (46-116); ANION GAP 8 mmol/L (5-15); ASPARTATE AMINO TRANSFERASE 26 U/L (15-37); BILIRUBIN,TOTAL 1.9 MG/DL (0.2-1.0); BLOOD UREA NITROGEN 8 mg/dL (7-18); CALCIUM 7.4 MG/DL (8.5-10.1); CARBON DIOXIDE 24 MMOL/L (21-32); CHLORIDE 107 MMOL/L (98-107); CREATININE 0.6 MG/DL (0.55-1.30); POTASSIUM 3.5 MMOL/L (3.5-5.1); SODIUM 139 MMOL/L (136-145)
[2020-02-24 07:40] LABS: BILIRUBIN,DIRECT 1.2 MG/DL (0.0-0.3)
[2020-02-24] MEDS: Pantoprazole Inj IVP SCH (08:50)
[2020-02-24] MEDS: D5 1/2NS w/KCl 20mEq 1,000 ML IV SCH (08:50)
[2020-02-24] MEDS: Doxycycline Monohydrate 100mg ORAL SCH ×2 (08:51→21:16)
[2020-02-24] MEDS: Hydroxychloroquine 400mg tab ORAL SCH ×2 (08:51→21:17)
--- NOTE | 2020-02-24 09:25 | General Progress Note ---
Assessment/Plan Assessment/Plan: 74 y/o M from [place], PMH HTN, DMT2, dementia, Alzheimers dx, h/o CVA/TIA, h/o DVT, schizophrenia who presents for Fever. In the ED, pt found to be septic, Tm 100.9 , RR22, WBC 7.3, Lactic acid 2.8, and ABG revealed acute hypoxic respiratory failure. Pt was intubated and will be admitted to ICU for acute hypoxic respiratory failure and pending COVID r/o. #Septic shock 2/2 #Acute Hypoxic Respiratory Failure #HCAP #COVID positive #Lactic Acidosis -Appreciate ICU level care -pt intubated in ED, 02/21 -vent management per CCU team/Pulm, wean as tolerated -Cont. COVID isolation protocol -COVID PCR positive -elevated d-dimer and BNP likely 2/2 above -cont. pressure support, wean as tolerated -cont. fentanyl for sedation -cont. vanc/zosyn for now -BCx, Scx, UCx pending -echo ordered -ID consulted, discussed case w/ID, Dr. Estrada -d/w Pulm, Dr. Bland, no indication for thora at this time #Hypernatremia - improved -likely 2/2 dehydration -careful w/IVF given BNP elevated -daily BMPs -nephro consulted, recs appreciated #Type 2 DM -holding home metformin -ISS sensitive, accuchecks q6h #HTN -holding home bp meds given septic shock -holding Lasix 20 mg q daily, benazepril 5 mg q daily #Alzheimer disease #Dementia #Schizophrenia #Bipolar dx -reviewed MAR from [place], no home meds for schizophrenia/bipolar dx noted -holding home aricept given clinical picture DVT PPx: lovenox Time spent: 70 mins, 32 mins spent on critical care noted below: Critical Care Services performed include: Telemetry Review Hemodynamic measurement interpretation Laboratory data review and interpretation Radiology image review and interpretation Interpretation of ABG's Discussion of patient's care with ICU team, Nursing staff and/or consulting services. Time of note may not reflect time of encounter. Subjective Allergies: Coded Allergies: No Known Allergies (Unverified , 01/19/19) Subjective F/u for acute respiratory failure s/p intubation on 02/21. Patient remains intubated, unable to obtain ROS due to clinical picture. Tm 104.2 overngiht. lactic acid remains high CXR w/worsening aeration. BP hypotensive, on pressure support. Objective Last 24 Hour Vital Signs Date Time Temp Pulse Resp B/P (MAP) Pulse Ox O2 Delivery O2 Flow Rate FiO2 02/24/20 07:28 93 27 80 02/24/20 07:01 103/65 02/24/20 06:30 87 26 90/61 (71) 96 02/24/20 06:04 92 27 02/24/20 06:01 97 22 92/59 (70) 97 02/24/20 06:00 92/59 02/24/20 06:00 25 Mechanical Ventilator 80 02/24/20 05:33 91 28 80 02/24/20 05:30 108 28 106/62 (77) 100 02/24/20 05:00 110 25 109/67 (81) 98 02/24/20 05:00 110/68 02/24/20 05:00 27 Mechanical Ventilator 80 02/24/20 04:30 107 29 109/71 (84) 98 02/24/20 04:00 80 02/24/20 04:00 Mechanical Ventilator 02/24/20 04:00 107/70 02/24/20 04:00 25 Mechanical Ventilator 80 02/24/20 04:00 99.0 87 21 105/68 (80) 98 02/24/20 04:00 105 02/24/20 03:30 90 26 80 02/24/20 03:30 93 26 102/67 (79) 98 02/24/20 03:00 96 24 102/67 (79) 98 02/24/20 03:00 101/69 02/24/20 03:00 25 Mechanical Ventilator 80 02/24/20 02:30 88 28 102/69 (80) 72 02/24/20 02:30 88 28 102/69 (80) 98 02/24/20 02:15 88 24 99/69 (79) 02/24/20 02:00 88 27 103/70 (81) 02/24/20 02:00 99/69 02/24/20 02:00 25 Mechanical Ventilator 80 02/24/20 02:00 88 27 103/70 (81) 97 02/24/20 01:45 92 27 103/66 (78) 02/24/20 01:30 88 29 103/67 (79) 02/24/20 01:30 88 29 103/67 (79) 97 02/24/20 01:30 92 30 80 02/24/20 01:22 84 28 102/68 (79) 02/24/20 01:15 97 26 86/57 (67) 02/24/20 01:15 106/68 02/24/20 01:00 93 27 106/68 (81) 100 02/24/20 01:00 86/57 02/24/20 01:00 27 Mechanical Ventilator 80 02/24/20 01:00 93 27 106/68 (81) 100 02/24/20 00:45 98 27 106/68 (81) 100 02/24/20 00:30 93 29 104/74 (84) 99 02/24/20 00:30 93 29 104/74 (84) 99 02/24/20 00:15 98 26 106/69 (81) 99 02/24/20 00:00 Mechanical Ventilator 02/24/20 00:00 80 02/24/20 00:00 103 30 115/72 (86) 100 02/24/20 00:00 106/69 02/24/20 00:00 27 Mechanical Ventilator 90 02/24/20 00:00 98.8 103 30 115/72 (86) 100 02/24/20 00:00 98 02/23/20 23:30 101 34 80 02/23/20 23:30 92 30 101/66 (78) 100 02/23/20 23:00 89 18 94/71 (79) 97 02/23/20 23:00 104/65 02/23/20 23:00 28 Mechanical Ventilator 90 02/23/20 22:30 99 28 107/69 (82) 100 02/23/20 22:00 91 23 97/73 (81) 97 02/23/20 22:00 97/73 02/23/20 22:00 27 Mechanical Ventilator 90 02/23/20 21:30 96 27 105/64 (78) 98 02/23/20 21:14 94 29 80 02/23/20 21:00 93 27 108/72 (84) 98 02/23/20 21:00 102/86 02/23/20 21:00 28 Mechanical Ventilator 90 02/23/20 20:31 76/50 02/23/20 20:30 91 26 102/66 (78) 98 02/23/20 20:00 58/37 02/23/20 20:00 21 Mechanical Ventilator 90 02/23/20 20:00 90 02/23/20 20:00 85 02/23/20 20:00 Mechanical Ventilator 02/23/20 20:00 89 24 58/37 (44) 97 02/23/20 19:30 95 30 80 02/23/20 19:30 99.8 87 23 101/69 (80) 97 02/23/20 19:00 98/64 02/23/20 19:00 22 Mechanical Ventilator 90 02/23/20 19:00 87 22 98/64 (75) 98 02/23/20 18:30 89 20 99/68 (78) 98 02/23/20 18:00 98/69 02/23/20 18:00 26 Mechanical Ventilator 90 02/23/20 18:00 86 26 98/69 (79) 98 02/23/20 17:30 87 22 103/70 (81) 99 02/23/20 17:15 87 25 102/67 (79) 99 02/23/20 17:00 83 27 99/66 (77) 98 02/23/20 17:00 99/66 02/23/20 17:00 23 Mechanical Ventilator 90 02/23/20 16:45 86 26 95/67 (76) 97 02/23/20 16:37 85 27 80 02/23/20 16:30 84 24 98/62 (74) 97 02/23/20 16:15 84 26 103/68 (80) 98 02/23/20 16:00 Mechanical Ventilator 02/23/20 16:00 88 02/23/20 16:00 103/68 02/23/20 16:00 27 Mechanical Ventilator 90 02/23/20 16:00 102/67 02/23/20 16:00 90 02/23/20 16:00 98.8 86 27 102/67 (79) 98 02/23/20 15:45 86 23 95/66 (76) 99 02/23/20 15:30 85 18 99/70 (80) 98 02/23/20 15:15 85 92/62 (72) 98 02/23/20 15:00 87 29 80 02/23/20 15:00 24 Mechanical Ventilator 90 02/23/20 15:00 96/63 02/23/20 15:00 87 28 96/63 (74) 98 02/23/20 14:48 88 02/23/20 14:45 85 26 92/67 (75) 99 02/23/20 14:30 86 27 93/68 (76) 99 02/23/20 14:15 92 28 94/60 (71) 100 02/23/20 14:00 91 21 95/58 (70) 99 02/23/20 14:00 21 Mechanical Ventilator 90 02/23/20 14:00 95/58 02/23/20 13:45 91 28 93/60 (71) 99 02/23/20 13:30 88 27 92/60 (71) 100 02/23/20 13:15 27 Mechanical Ventilator 90 02/23/20 13:15 90 27 90/59 (69) 100 02/23/20 13:05 85 30 80 02/23/20 13:00 89 27 94/61 (72) 100 02/23/20 13:00 23 Mechanical Ventilator 90 02/23/20 13:00 95/59 02/23/20 13:00 89 23 95/59 (71) 100 02/23/20 12:45 26 Mechanical Ventilator 90 02/23/20 12:45 86 26 92/60 (71) 100 02/23/20 12:30 88 21 93/61 (72) 100 02/23/20 12:30 21 Mechanical Ventilator 90 02/23/20 12:15 27 Mechanical Ventilator 90 02/23/20 12:15 98.2 86 27 93/61 (72) 100 02/23/20 12:00 Mechanical Ventilator 02/23/20 12:00 27 Mechanical Ventilator 90 02/23/20 12:00 110/58 02/23/20 12:00 27 110/58 Mechanical Ventilator 90 02/23/20 12:00 90 02/23/20 12:00 86 27 110/58 (75) 100 02/23/20 11:45 30 Mechanical Ventilator 80 02/23/20 11:45 94 30 90/67 (75) 100 02/23/20 11:30 85 26 95/63 (74) 100 02/23/20 11:30 26 Mechanical Ventilator 80 02/23/20 11:15 87 22 111/68 (82) 99 02/23/20 11:15 22 Mechanical Ventilator 80 02/23/20 11:00 27 Mechanical Ventilator 80 02/23/20 11:00 95/63 02/23/20 11:00 21 95/63 Mechanical Ventilator 80 02/23/20 11:00 95/63 02/23/20 11:00 85 21 91/76 (81) 97 02/23/20 10:45 86 21 99/59 (72) 97 02/23/20 10:30 83 29 80 02/23/20 10:30 79 25 99/59 (72) 100 02/23/20 10:15 79 27 87/61 (70) 100 02/23/20 10:03 80 02/23/20 10:00 79 26 80/53 (62) 100 02/23/20 10:00 26 80/53 Mechanical Ventilator 80 02/23/20 10:00 80/53 02/23/20 09:45 95 26 64/34 (44) 94 02/23/20 09:45 64/34 02/23/20 09:30 96 26 224/202 (209) 95 Intake and Output 02/23/20 02/24/20 19:00 07:00 Intake Total 2564.32394 ml 2426.25 ml Output Total 405 ml 485 ml Balance 2159.50128 ml 1941.25 ml Intake Oral 0 ml IV Total 2564.10928 ml 2426.25 ml Output Urine Total 405 ml 485 ml Laboratory Tests 02/23/20 09:48: Arterial Blood pH 7.367, Arterial Blood Partial Pressure CO2 34.8L, Arterial Blood Partial Pressure O2 53.9L, Arterial Blood HCO3 19.5L, Arterial Blood Oxygen Saturation 86.2*L, Arterial Blood Base Excess -5.0L, Kuldeep Test Positive 02/23/20 13:35: Lactic Acid Level 4.00H 02/23/20 22:10: Lactic Acid Level 2.80H, Vancomycin Level Trough 6.1 02/23/20 23:45: Lactic Acid Level 3.00H 02/24/20 06:30: White Blood Count 12.4H, Red Blood Count 3.76L, Hemoglobin 11.3L, Hematocrit 33.0L, Mean Corpuscular Volume 88, Mean Corpuscular Hemoglobin 30.0, Mean Corpuscular Hemoglobin Concent 34.2, Red Cell Distribution Width 13.6, Platelet Count 315, Mean Platelet Volume 5.4L, Neutrophils (%) (Auto) , Lymphocytes (%) ( Auto) , Monocytes (%) (Auto) , Eosinophils (%) (Auto) , Basophils (%) (Auto) , Differential Total Cells Counted 100, Neutrophils % (Manual) 97H, Lymphocytes % (Manual) 2L, Monocytes % (Manual) 1, Eosinophils % (Manual) 0, Basophils % ( Manual) 0, Band Neutrophils 0, Platelet Estimate Adequate, Platelet Morphology Normal, Hypochromasia 1+, Anisocytosis 1+, Sodium Level 139, Potassium Level 3.5 , Chloride Level 107, Carbon Dioxide Level 24, Anion Gap 8, Blood Urea Nitrogen 8, Creatinine 0.6, Estimat Glomerular Filtration Rate > 60, Glucose Level 202H, Calcium Level 7.4L, Total Bilirubin 1.9H, Direct Bilirubin 1.2H, Aspartate Amino Transf (AST/SGOT) 26, Alanine Aminotransferase (ALT/SGPT) 23, Alkaline Phosphatase 74, Total Protein 5.5L, Albumin 1.4L, Globulin 4.1, Albumin/ Globulin Ratio 0.3L 02/24/20 08:27: Arterial Blood pH 7.372, Arterial Blood Partial Pressure CO2 38.2, Arterial Blood Partial Pressure O2 88.8, Arterial Blood HCO3 21.7L, Arterial Blood Oxygen Saturation 96.7, Arterial Blood Base Excess -3.2L, Kuldeep Test Positive Height (Feet): 5 Height (Inches): 5.00 Weight (Pounds): 118 Objective General: intubated, sedated HEENT: NCAT, ETT in place, OG tube in place CV: RRR on tele Pulm: equal rise in lungs b/l GI: abd appears non-distended Ext: No lower extremity edema bilaterally Gosia Nunez M.D. Feb 24, 2020 09:25
--- NOTE | 2020-02-24 10:00 | Pulmonology Progress Note ---
Assessment/Plan Assessment/Plan IMPRESSION: 1. Respiratory failure. 2. Bilateral pneumonia. + COVID 19 3. Pulmonary edema. 4. Diabetes mellitus. DISCUSSION: Positive COVID 19 pcr The patient is critically ill at this point in time. Noted Cardiology consultation. Continue broad-spectrum antibiotics. Continue respiratory support; will adjust vent settings I will follow carefully. Andrea Bland M.D. Subjective ROS Limited/Unobtainable: Yes Interval Events: Remains intubtaed; was intubated on 02/22/20 Constitutional: Reports: fever HEENT: Repors: no symptoms Respiratory: Reports: no symptoms Cardiovascular: Reports: no symptoms Gastrointestinal/Abdominal: Denies: nausea, vomiting Genitourinary: Reports: no symptoms Skin: Denies: rash Endocrine: Reports: no symptoms Allergies: Coded Allergies: No Known Allergies (Unverified , 01/19/19) Subjective seen and evaluated Discussed with RN Objective Last 24 Hour Vital Signs Date Time Temp Pulse Resp B/P (MAP) Pulse Ox O2 Delivery O2 Flow Rate FiO2 02/24/20 09:30 100 23 91/62 (72) 98 02/24/20 09:00 99 22 96/64 (75) 97 02/24/20 08:30 89 24 96/64 (75) 100 02/24/20 08:00 99.0 90 25 93/61 (72) 97 02/24/20 08:00 80 02/24/20 07:30 91 23 95/64 (74) 99 02/24/20 07:28 93 27 80 02/24/20 07:01 103/65 02/24/20 07:00 106 25 91/59 (70) 94 02/24/20 06:30 87 26 90/61 (71) 96 02/24/20 06:04 92 27 02/24/20 06:01 97 22 92/59 (70) 97 02/24/20 06:00 92/59 02/24/20 06:00 25 Mechanical Ventilator 80 02/24/20 05:33 91 28 80 02/24/20 05:30 108 28 106/62 (77) 100 02/24/20 05:00 110 25 109/67 (81) 98 02/24/20 05:00 110/68 02/24/20 05:00 27 Mechanical Ventilator 80 02/24/20 04:30 107 29 109/71 (84) 98 02/24/20 04:00 80 02/24/20 04:00 Mechanical Ventilator 02/24/20 04:00 107/70 02/24/20 04:00 25 Mechanical Ventilator 80 02/24/20 04:00 99.0 87 21 105/68 (80) 98 02/24/20 04:00 105 02/24/20 03:30 90 26 80 02/24/20 03:30 93 26 102/67 (79) 98 02/24/20 03:00 96 24 102/67 (79) 98 02/24/20 03:00 101/69 02/24/20 03:00 25 Mechanical Ventilator 80 02/24/20 02:30 88 28 102/69 (80) 72 02/24/20 02:30 88 28 102/69 (80) 98 02/24/20 02:15 88 24 99/69 (79) 02/24/20 02:00 88 27 103/70 (81) 02/24/20 02:00 99/69 02/24/20 02:00 25 Mechanical Ventilator 80 02/24/20 02:00 88 27 103/70 (81) 97 02/24/20 01:45 92 27 103/66 (78) 02/24/20 01:30 88 29 103/67 (79) 02/24/20 01:30 88 29 103/67 (79) 97 02/24/20 01:30 92 30 80 02/24/20 01:22 84 28 102/68 (79) 02/24/20 01:15 97 26 86/57 (67) 02/24/20 01:15 106/68 02/24/20 01:00 93 27 106/68 (81) 100 02/24/20 01:00 86/57 02/24/20 01:00 27 Mechanical Ventilator 80 02/24/20 01:00 93 27 106/68 (81) 100 02/24/20 00:45 98 27 106/68 (81) 100 02/24/20 00:30 93 29 104/74 (84) 99 02/24/20 00:30 93 29 104/74 (84) 99 02/24/20 00:15 98 26 106/69 (81) 99 02/24/20 00:00 Mechanical Ventilator 02/24/20 00:00 80 02/24/20 00:00 103 30 115/72 (86) 100 02/24/20 00:00 106/69 02/24/20 00:00 27 Mechanical Ventilator 90 02/24/20 00:00 98.8 103 30 115/72 (86) 100 02/24/20 00:00 98 02/23/20 23:30 101 34 80 02/23/20 23:30 92 30 101/66 (78) 100 02/23/20 23:00 89 18 94/71 (79) 97 02/23/20 23:00 104/65 02/23/20 23:00 28 Mechanical Ventilator 90 02/23/20 22:30 99 28 107/69 (82) 100 02/23/20 22:00 91 23 97/73 (81) 97 02/23/20 22:00 97/73 02/23/20 22:00 27 Mechanical Ventilator 90 02/23/20 21:30 96 27 105/64 (78) 98 02/23/20 21:14 94 29 80 02/23/20 21:00 93 27 108/72 (84) 98 02/23/20 21:00 102/86 02/23/20 21:00 28 Mechanical Ventilator 90 02/23/20 20:31 76/50 02/23/20 20:30 91 26 102/66 (78) 98 02/23/20 20:00 58/37 02/23/20 20:00 21 Mechanical Ventilator 90 02/23/20 20:00 90 02/23/20 20:00 85 02/23/20 20:00 Mechanical Ventilator 02/23/20 20:00 89 24 58/37 (44) 97 02/23/20 19:30 95 30 80 02/23/20 19:30 99.8 87 23 101/69 (80) 97 02/23/20 19:00 98/64 02/23/20 19:00 22 Mechanical Ventilator 90 02/23/20 19:00 87 22 98/64 (75) 98 02/23/20 18:30 89 20 99/68 (78) 98 02/23/20 18:00 98/69 02/23/20 18:00 26 Mechanical Ventilator 90 02/23/20 18:00 86 26 98/69 (79) 98 02/23/20 17:30 87 22 103/70 (81) 99 02/23/20 17:15 87 25 102/67 (79) 99 02/23/20 17:00 83 27 99/66 (77) 98 02/23/20 17:00 99/66 02/23/20 17:00 23 Mechanical Ventilator 90 02/23/20 16:45 86 26 95/67 (76) 97 02/23/20 16:37 85 27 80 02/23/20 16:30 84 24 98/62 (74) 97 02/23/20 16:15 84 26 103/68 (80) 98 02/23/20 16:00 Mechanical Ventilator 02/23/20 16:00 88 02/23/20 16:00 103/68 02/23/20 16:00 27 Mechanical Ventilator 90 02/23/20 16:00 102/67 02/23/20 16:00 90 02/23/20 16:00 98.8 86 27 102/67 (79) 98 02/23/20 15:45 86 23 95/66 (76) 99 02/23/20 15:30 85 18 99/70 (80) 98 02/23/20 15:15 85 92/62 (72) 98 02/23/20 15:00 87 29 80 02/23/20 15:00 24 Mechanical Ventilator 90 02/23/20 15:00 96/63 02/23/20 15:00 87 28 96/63 (74) 98 02/23/20 14:48 88 02/23/20 14:45 85 26 92/67 (75) 99 02/23/20 14:30 86 27 93/68 (76) 99 02/23/20 14:15 92 28 94/60 (71) 100 02/23/20 14:00 91 21 95/58 (70) 99 02/23/20 14:00 21 Mechanical Ventilator 90 02/23/20 14:00 95/58 02/23/20 13:45 91 28 93/60 (71) 99 02/23/20 13:30 88 27 92/60 (71) 100 02/23/20 13:15 27 Mechanical Ventilator 90 02/23/20 13:15 90 27 90/59 (69) 100 02/23/20 13:05 85 30 80 02/23/20 13:00 89 27 94/61 (72) 100 02/23/20 13:00 23 Mechanical Ventilator 90 02/23/20 13:00 95/59 02/23/20 13:00 89 23 95/59 (71) 100 02/23/20 12:45 26 Mechanical Ventilator 90 02/23/20 12:45 86 26 92/60 (71) 100 02/23/20 12:30 88 21 93/61 (72) 100 02/23/20 12:30 21 Mechanical Ventilator 90 02/23/20 12:15 27 Mechanical Ventilator 90 02/23/20 12:15 98.2 86 27 93/61 (72) 100 02/23/20 12:00 Mechanical Ventilator 02/23/20 12:00 27 Mechanical Ventilator 90 02/23/20 12:00 110/58 02/23/20 12:00 27 110/58 Mechanical Ventilator 90 02/23/20 12:00 90 02/23/20 12:00 86 27 110/58 (75) 100 02/23/20 11:45 30 Mechanical Ventilator 80 02/23/20 11:45 94 30 90/67 (75) 100 02/23/20 11:30 85 26 95/63 (74) 100 02/23/20 11:30 26 Mechanical Ventilator 80 02/23/20 11:15 87 22 111/68 (82) 99 02/23/20 11:15 22 Mechanical Ventilator 80 02/23/20 11:00 27 Mechanical Ventilator 80 02/23/20 11:00 95/63 02/23/20 11:00 21 95/63 Mechanical Ventilator 80 02/23/20 11:00 95/63 02/23/20 11:00 85 21 91/76 (81) 97 02/23/20 10:45 86 21 99/59 (72) 97 02/23/20 10:30 83 29 80 02/23/20 10:30 79 25 99/59 (72) 100 02/23/20 10:15 79 27 87/61 (70) 100 02/23/20 10:03 80 02/23/20 10:00 79 26 80/53 (62) 100 02/23/20 10:00 26 80/53 Mechanical Ventilator 80 02/23/20 10:00 80/53 Intake and Output 02/23/20 02/24/20 19:00 07:00 Intake Total 2564.07951 ml 2426.25 ml Output Total 405 ml 570 ml Balance 2159.90732 ml 1856.25 ml Intake Oral 0 ml IV Total 2564.75902 ml 2426.25 ml Output Urine Total 405 ml 570 ml General Appearance: no acute distress HEENT: normocephalic, atraumatic, anicteric Respiratory/Chest: chest wall non-tender, decreased breath sounds Cardiovascular: normal peripheral pulses Abdomen: normal bowel sounds, soft, non tender, no organomegaly Extremities: no cyanosis Lymphatic: no neck adenopathy Microbiology Date/Time Source Procedure Growth Status 02/22/20 12:08 Blood Blood Culture - Preliminary NO GROWTH AFTER 24 HOURS Resulted 02/22/20 11:50 Blood Blood Culture - Preliminary NO GROWTH AFTER 24 HOURS Resulted 02/22/20 12:08 Nasopharynx Coronavirus COVID-19 PCR ([facility]) - Final Complete Laboratory Tests 02/23/20 13:35: Lactic Acid Level 4.00H 02/23/20 22:10: Lactic Acid Level 2.80H, Vancomycin Level Trough 6.1 02/23/20 23:45: Lactic Acid Level 3.00H 02/24/20 06:30: White Blood Count 12.4H, Red Blood Count 3.76L, Hemoglobin 11.3L, Hematocrit 33.0L, Mean Corpuscular Volume 88, Mean Corpuscular Hemoglobin 30.0, Mean Corpuscular Hemoglobin Concent 34.2, Red Cell Distribution Width 13.6, Platelet Count 315, Mean Platelet Volume 5.4L, Neutrophils (%) (Auto) , Lymphocytes (%) ( Auto) , Monocytes (%) (Auto) , Eosinophils (%) (Auto) , Basophils (%) (Auto) , Differential Total Cells Counted 100, Neutrophils % (Manual) 97H, Lymphocytes % (Manual) 2L, Monocytes % (Manual) 1, Eosinophils % (Manual) 0, Basophils % ( Manual) 0, Band Neutrophils 0, Platelet Estimate Adequate, Platelet Morphology Normal, Hypochromasia 1+, Anisocytosis 1+, Sodium Level 139, Potassium Level 3.5 , Chloride Level 107, Carbon Dioxide Level 24, Anion Gap 8, Blood Urea Nitrogen 8, Creatinine 0.6, Estimat Glomerular Filtration Rate > 60, Glucose Level 202H, Calcium Level 7.4L, Total Bilirubin 1.9H, Direct Bilirubin 1.2H, Aspartate Amino Transf (AST/SGOT) 26, Alanine Aminotransferase (ALT/SGPT) 23, Alkaline Phosphatase 74, Pro-B-Type Natriuretic Peptide [Pending], Total Protein 5.5L, Albumin 1.4L, Globulin 4.1, Albumin/Globulin Ratio 0.3L 02/24/20 08:27: Arterial Blood pH 7.372, Arterial Blood Partial Pressure CO2 38.2, Arterial Blood Partial Pressure O2 88.8, Arterial Blood HCO3 21.7L, Arterial Blood Oxygen Saturation 96.7, Arterial Blood Base Excess -3.2L, Kuldeep Test Positive Current Medications Medications (Trade) Dose Ordered Sig/Cirilo Route PRN Reason Start Time Stop Time Status Last Admin Dose Admin Acetaminophen (Tylenol) 650 mg Q4H PRN ORAL Fever 02/22/20 14:15 03/23/20 14:14 Acetaminophen (Tylenol) 650 mg Q4H PRN ORAL Mild Pain (Pain Scale 1-3) 02/22/20 14:15 03/23/20 14:14 Acetaminophen (Tylenol) 650 mg Q4H PRN RECTAL Mild Pain (Pain Scale 1-3) 02/22/20 14:15 03/23/20 14:14 02/22/20 21:28 Acetaminophen (Tylenol) 650 mg Q4H PRN RECTAL FEVER 02/22/20 14:15 03/23/20 14:14 Chlorhexidine Gluconate (Maira-Hex 2%) 1 applic DAILY@2000 TOPIC 02/23/20 20:00 05/23/20 19:59 02/23/20 20:30 Dextrose (Dextrose 50%) 25 ml Q30M PRN IV Hypoglycemia 02/23/20 09:00 05/23/20 08:59 Dextrose (Dextrose 50%) 50 ml Q30M PRN IV Hypoglycemia 02/23/20 09:00 05/23/20 08:59 Dextrose/ Electrolytes 1,000 ml @ 100 mls/hr Q10H IV 02/23/20 13:00 03/23/20 21:59 02/24/20 08:50 Diphenhydramine HCl (Benadryl) 25 mg Q6H PRN ORAL Itching/Pruritis 02/22/20 14:15 03/23/20 14:14 Doxycycline Monohydrate (Doxycycline Monohydrate) 100 mg EVERY 12 HOURS ORAL 02/24/20 09:00 03/02/20 08:59 02/24/20 08:51 Enoxaparin Sodium (Lovenox) 40 mg Q24H SUBQ 02/22/20 17:00 05/22/20 16:59 02/23/20 17:04 Fentanyl Citrate 2500 mcg/Sodium Chloride 250 ml @ 0 mls/hr Q24H IV 02/23/20 10:00 03/01/20 09:59 02/23/20 11:00 Hydroxychloroquine Sulfate (Plaquenil) 200 mg Q12HR ORAL 02/25/20 09:00 02/28/20 21:01 Hydroxychloroquine Sulfate (Plaquenil) 400 mg Q12HR ORAL 02/24/20 09:00 02/24/20 21:01 02/24/20 08:51 Insulin Aspart (NovoLOG) Q6HR SUBQ 02/23/20 12:00 05/23/20 11:59 02/24/20 06:35 Norepinephrine Bitartrate 8 mg/ Dextrose 500 ml @ 0 mls/hr Q24H IV 02/23/20 19:01 03/24/20 19:00 02/24/20 07:01 Pantoprazole (Protonix) 40 mg DAILY IVP 02/23/20 09:30 03/24/20 09:29 02/24/20 08:50 Piperacillin Sod/ Tazobactam Sod 3.375 gm/Dextrose 110 ml @ 27.5 mls/hr Q8H IVPB 02/23/20 01:00 03/01/20 00:59 02/24/20 08:50 Vancomycin HCl (Vanco rx to dose) 1 ea DAILY PRN MISC Per rx protocol 02/22/20 14:30 03/23/20 14:29 Vancomycin HCl 750 mg/Sodium Chloride 275 ml @ 183 mls/hr Q12HR@0000,1200 IVPB 02/23/20 00:00 02/28/20 00:00 02/24/20 00:45 Andrea Bland MD Feb 24, 2020 10:00
--- NOTE | 2020-02-24 10:08 | Diagnostic Imaging Report ---
Indication: Respiratory failure shortness of breath Technique: XRAY Chest 1v Comparison: 02/22/2020 Findings: Heart borders are obscured. Interstitial and extensive predominantly perihilar airspace opacities are noted. There is slight decrease in opacification in the right midlung but there is worsening of disease in the left lung. Is been development of a small layering left pleural effusion. Endotracheal tube tip approximately 1.2 cm above the holly. Enteric tube tip in the distal stomach. Osseous structures are stable. There are atherosclerotic calcifications. IMPRESSION: Overall worsening of aeration with increasing airspace disease in the left lung and development of a small layering left pleural effusion. Persistent patchy perihilar opacities in the right lung. Endotracheal and enteric tubes remain in place. Tip of the ET tube approximately 1.2 cm above the holly. Consider slight retraction (1-2 cms).
[2020-02-24] MEDS: fentaNYL Citrate 2,500 MCG in NS 200 ML IV SCH (10:57)
--- NOTE | 2020-02-24 12:42 | Cardiac Electrophysiology PN ---
Assessment/Plan Assessment/Plan 1. Respiratory failure likely due to COVID pneumonia in view of chest x-ray. However, cannot rule out underlying CHF as BNP is more than 2000. Echo EF 50%. His white count however is only 7.2 with lymphopenia On the Vent 80% Fio2, PEEP 5 2. Septic shock likely due to pneumonia and dehydration. The patient is hypotensive, hypernatremic, and azotemic. On Levo 20 mcg and D51/2 ns at 100 cc/hr. Decrease to 50 3. Hypernatremia, sodium 150. Resolved with IV fluids. 4. Dehydration. Subjective Subjective On Levo 20 mcg.Agitated in restraints. Troponin 1.6 on the vent Fio2 80%. EF 50 %. Covid PCR is now positive Objective Last 24 Hour Vital Signs Date Time Temp Pulse Resp B/P (MAP) Pulse Ox O2 Delivery O2 Flow Rate FiO2 02/24/20 11:28 84 24 80 02/24/20 10:57 20 Mechanical Ventilator 80 02/24/20 10:10 20 Mechanical Ventilator 80 02/24/20 10:00 20 Mechanical Ventilator 80 02/24/20 09:30 100 23 91/62 (72) 98 02/24/20 09:00 20 Mechanical Ventilator 80 02/24/20 09:00 99 22 96/64 (75) 97 02/24/20 08:30 89 24 96/64 (75) 100 02/24/20 08:00 81 02/24/20 08:00 20 Mechanical Ventilator 80 02/24/20 08:00 99.0 90 25 93/61 (72) 97 02/24/20 08:00 80 02/24/20 08:00 Mechanical Ventilator 02/24/20 07:30 91 23 95/64 (74) 99 02/24/20 07:28 93 27 80 02/24/20 07:01 103/65 02/24/20 07:00 20 Mechanical Ventilator 80 02/24/20 07:00 106 25 91/59 (70) 94 02/24/20 06:30 87 26 90/61 (71) 96 02/24/20 06:04 92 27 02/24/20 06:01 97 22 92/59 (70) 97 02/24/20 06:00 92/59 02/24/20 06:00 25 Mechanical Ventilator 80 02/24/20 05:33 91 28 80 02/24/20 05:30 108 28 106/62 (77) 100 02/24/20 05:00 110 25 109/67 (81) 98 02/24/20 05:00 110/68 02/24/20 05:00 27 Mechanical Ventilator 80 02/24/20 04:30 107 29 109/71 (84) 98 02/24/20 04:00 80 02/24/20 04:00 Mechanical Ventilator 02/24/20 04:00 107/70 02/24/20 04:00 25 Mechanical Ventilator 80 02/24/20 04:00 99.0 87 21 105/68 (80) 98 02/24/20 04:00 105 02/24/20 03:30 90 26 80 02/24/20 03:30 93 26 102/67 (79) 98 02/24/20 03:00 96 24 102/67 (79) 98 02/24/20 03:00 101/69 02/24/20 03:00 25 Mechanical Ventilator 80 02/24/20 02:30 88 28 102/69 (80) 72 02/24/20 02:30 88 28 102/69 (80) 98 02/24/20 02:15 88 24 99/69 (79) 02/24/20 02:00 88 27 103/70 (81) 02/24/20 02:00 99/69 02/24/20 02:00 25 Mechanical Ventilator 80 02/24/20 02:00 88 27 103/70 (81) 97 02/24/20 01:45 92 27 103/66 (78) 02/24/20 01:30 88 29 103/67 (79) 02/24/20 01:30 88 29 103/67 (79) 97 02/24/20 01:30 92 30 80 02/24/20 01:22 84 28 102/68 (79) 02/24/20 01:15 97 26 86/57 (67) 02/24/20 01:15 106/68 02/24/20 01:00 93 27 106/68 (81) 100 02/24/20 01:00 86/57 02/24/20 01:00 27 Mechanical Ventilator 80 02/24/20 01:00 93 27 106/68 (81) 100 02/24/20 00:45 98 27 106/68 (81) 100 02/24/20 00:30 93 29 104/74 (84) 99 02/24/20 00:30 93 29 104/74 (84) 99 02/24/20 00:15 98 26 106/69 (81) 99 02/24/20 00:00 Mechanical Ventilator 02/24/20 00:00 80 02/24/20 00:00 103 30 115/72 (86) 100 02/24/20 00:00 106/69 02/24/20 00:00 27 Mechanical Ventilator 90 02/24/20 00:00 98.8 103 30 115/72 (86) 100 02/24/20 00:00 98 02/23/20 23:30 101 34 80 02/23/20 23:30 92 30 101/66 (78) 100 02/23/20 23:00 89 18 94/71 (79) 97 02/23/20 23:00 104/65 02/23/20 23:00 28 Mechanical Ventilator 90 02/23/20 22:30 99 28 107/69 (82) 100 02/23/20 22:00 91 23 97/73 (81) 97 02/23/20 22:00 97/73 02/23/20 22:00 27 Mechanical Ventilator 90 02/23/20 21:30 96 27 105/64 (78) 98 02/23/20 21:14 94 29 80 02/23/20 21:00 93 27 108/72 (84) 98 02/23/20 21:00 102/86 02/23/20 21:00 28 Mechanical Ventilator 90 02/23/20 20:31 76/50 02/23/20 20:30 91 26 102/66 (78) 98 02/23/20 20:00 58/37 02/23/20 20:00 21 Mechanical Ventilator 90 02/23/20 20:00 90 02/23/20 20:00 85 02/23/20 20:00 Mechanical Ventilator 02/23/20 20:00 89 24 58/37 (44) 97 02/23/20 19:30 95 30 80 02/23/20 19:30 99.8 87 23 101/69 (80) 97 02/23/20 19:00 98/64 02/23/20 19:00 22 Mechanical Ventilator 90 02/23/20 19:00 87 22 98/64 (75) 98 02/23/20 18:30 89 20 99/68 (78) 98 02/23/20 18:00 98/69 02/23/20 18:00 26 Mechanical Ventilator 90 02/23/20 18:00 86 26 98/69 (79) 98 02/23/20 17:30 87 22 103/70 (81) 99 02/23/20 17:15 87 25 102/67 (79) 99 02/23/20 17:00 83 27 99/66 (77) 98 02/23/20 17:00 99/66 02/23/20 17:00 23 Mechanical Ventilator 90 02/23/20 16:45 86 26 95/67 (76) 97 02/23/20 16:37 85 27 80 02/23/20 16:30 84 24 98/62 (74) 97 02/23/20 16:15 84 26 103/68 (80) 98 02/23/20 16:00 Mechanical Ventilator 02/23/20 16:00 88 02/23/20 16:00 103/68 02/23/20 16:00 27 Mechanical Ventilator 90 02/23/20 16:00 102/67 02/23/20 16:00 90 02/23/20 16:00 98.8 86 27 102/67 (79) 98 02/23/20 15:45 86 23 95/66 (76) 99 02/23/20 15:30 85 18 99/70 (80) 98 02/23/20 15:15 85 92/62 (72) 98 02/23/20 15:00 87 29 80 02/23/20 15:00 24 Mechanical Ventilator 90 02/23/20 15:00 96/63 02/23/20 15:00 87 28 96/63 (74) 98 02/23/20 14:48 88 02/23/20 14:45 85 26 92/67 (75) 99 02/23/20 14:30 86 27 93/68 (76) 99 02/23/20 14:15 92 28 94/60 (71) 100 02/23/20 14:00 91 21 95/58 (70) 99 02/23/20 14:00 21 Mechanical Ventilator 90 02/23/20 14:00 95/58 02/23/20 13:45 91 28 93/60 (71) 99 02/23/20 13:30 88 27 92/60 (71) 100 02/23/20 13:15 27 Mechanical Ventilator 90 02/23/20 13:15 90 27 90/59 (69) 100 02/23/20 13:05 85 30 80 02/23/20 13:00 89 27 94/61 (72) 100 02/23/20 13:00 23 Mechanical Ventilator 90 02/23/20 13:00 95/59 02/23/20 13:00 89 23 95/59 (71) 100 02/23/20 12:45 26 Mechanical Ventilator 90 02/23/20 12:45 86 26 92/60 (71) 100 Intake and Output 02/23/20 02/24/20 19:00 07:00 Intake Total 2564.72907 ml 2436.25 ml Output Total 405 ml 570 ml Balance 2159.52988 ml 1866.25 ml Intake Oral 0 ml IV Total 2564.51436 ml 2436.25 ml Output Urine Total 405 ml 570 ml Laboratory Tests Test 02/23/20 13:35 02/23/20 22:10 02/23/20 23:45 02/24/20 06:30 Lactic Acid Level 4.00 mmol/L (0.4-2.0) H 2.80 mmol/L (0.4-2.0) H 3.00 mmol/L (0.66-2.22) H Vancomycin Level Trough 6.1 ug/mL (5.0-12.0) White Blood Count 12.4 K/UL (4.8-10.8) H Red Blood Count 3.76 M/UL (4.70-6.10) L Hemoglobin 11.3 G/DL (14.2-18.0) L Hematocrit 33.0 % (42.0-52.0) L Mean Corpuscular Volume 88 FL (80-99) Mean Corpuscular Hemoglobin 30.0 PG (27.0-31.0) Mean Corpuscular Hemoglobin Concent 34.2 G/DL (32.0-36.0) Red Cell Distribution Width 13.6 % (11.6-14.8) Platelet Count 315 K/UL (150-450) Mean Platelet Volume 5.4 FL (6.5-10.1) L Neutrophils (%) (Auto) % (45.0-75.0) Lymphocytes (%) (Auto) % (20.0-45.0) Monocytes (%) (Auto) % (1.0-10.0) Eosinophils (%) (Auto) % (0.0-3.0) Basophils (%) (Auto) % (0.0-2.0) Differential Total Cells Counted 100 Neutrophils % (Manual) 97 % (45-75) H Lymphocytes % (Manual) 2 % (20-45) L Monocytes % (Manual) 1 % (1-10) Eosinophils % (Manual) 0 % (0-3) Basophils % (Manual) 0 % (0-2) Band Neutrophils 0 % (0-8) Platelet Estimate Adequate Platelet Morphology Normal Hypochromasia 1+ Anisocytosis 1+ Sodium Level 139 MMOL/L (136-145) Potassium Level 3.5 MMOL/L (3.5-5.1) Chloride Level 107 MMOL/L (98-107) Carbon Dioxide Level 24 MMOL/L (21-32) Anion Gap 8 mmol/L (5-15) Blood Urea Nitrogen 8 mg/dL (7-18) Creatinine 0.6 MG/DL (0.55-1.30) Estimat Glomerular Filtration Rate > 60 mL/min (>60) Glucose Level 202 MG/DL (74-106) H Calcium Level 7.4 MG/DL (8.5-10.1) L Total Bilirubin 1.9 MG/DL (0.2-1.0) H Direct Bilirubin 1.2 MG/DL (0.0-0.3) H Aspartate Amino Transf (AST/SGOT) 26 U/L (15-37) Alanine Aminotransferase (ALT/SGPT) 23 U/L (12-78) Alkaline Phosphatase 74 U/L (46-116) Pro-B-Type Natriuretic Peptide > 02144 pg/mL (0-125) H Total Protein 5.5 G/DL (6.4-8.2) L Albumin 1.4 G/DL (3.4-5.0) L Globulin 4.1 g/dL Albumin/Globulin Ratio 0.3 (1.0-2.7) L Test 02/24/20 08:27 02/24/20 11:00 Arterial Blood pH 7.372 (7.350-7.450) Arterial Blood Partial Pressure CO2 38.2 mmHg (35.0-45.0) Arterial Blood Partial Pressure O2 88.8 mmHg (75.0-100.0) Arterial Blood HCO3 21.7 mmol/L (22.0-26.0) L Arterial Blood Oxygen Saturation 96.7 % (95-100) Arterial Blood Base Excess -3.2 (-2-2) L Kuldeep Test Positive Vancomycin Level Trough 6.2 ug/mL (5.0-12.0) Microbiology Date/Time Source Procedure Growth Status 02/22/20 12:08 Blood Blood Culture - Preliminary Resulted 02/22/20 11:50 Blood Blood Culture - Preliminary NO GROWTH AFTER 24 HOURS Resulted 02/22/20 12:08 Nasopharynx Coronavirus COVID-19 PCR ([facility]) - Final Complete Objective HEAD AND NECK: Showed no JVD. He is orally intubated. LUNGS: Decreased breath sounds and coarse rhonchi. CARDIOVASCULAR: Regular S1 and S2 with no gallop. ABDOMEN: Soft. EXTREMITIES: No pitting edema. Deric Garcia MD Feb 24, 2020 12:42
[2020-02-24] MEDS ORDERED: D5 1/2NS w/KCl 20mEq 1,000 ML IV SCH (13:00)
[2020-02-24] MEDS: Vancomycin 1gm/D5W 275ml IVPB SCH ×4 (14:09→22:27)
--- NOTE | 2020-02-24 14:25 | Nephrology Progress Note ---
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 # h/o DVT # schizophrenia, bipolar - continue icu care - DC IVF - replete K - vaso pressor per pulmonary - antibiotics per ICU - trend lactic acid - follow cx - vent management per pulmonary - monitor lytes - BG control - hold antihypertensive Subjective ROS Limited/Unobtainable: Yes Subjective BNP elevate d DC IVF remains hypotensive lytes ok remains intubated Objective Objective Last 24 Hour Vital Signs Date Time Temp Pulse Resp B/P (MAP) Pulse Ox O2 Delivery O2 Flow Rate FiO2 02/24/20 14:10 91/64 02/24/20 14:00 86 19 91/64 (73) 100 02/24/20 13:30 87 20 102/62 (75) 98 02/24/20 13:00 89 24 102/68 (79) 100 02/24/20 12:30 89 25 74/60 (65) 99 02/24/20 12:00 99.1 87 29 91/62 (72) 99 02/24/20 12:00 80 02/24/20 12:00 Mechanical Ventilator 02/24/20 11:30 88 23 93/62 (72) 99 02/24/20 11:28 84 24 80 02/24/20 11:00 88 22 92/61 (71) 98 02/24/20 10:57 20 Mechanical Ventilator 80 02/24/20 10:30 91 24 96/64 (75) 99 02/24/20 10:10 20 Mechanical Ventilator 80 02/24/20 10:00 20 Mechanical Ventilator 80 02/24/20 10:00 94 16 91/60 (70) 98 02/24/20 09:30 100 23 91/62 (72) 98 02/24/20 09:00 20 Mechanical Ventilator 80 02/24/20 09:00 99 22 96/64 (75) 97 02/24/20 08:30 89 24 96/64 (75) 100 02/24/20 08:00 81 02/24/20 08:00 20 Mechanical Ventilator 80 02/24/20 08:00 99.0 90 25 93/61 (72) 97 02/24/20 08:00 80 02/24/20 08:00 Mechanical Ventilator 02/24/20 07:30 91 23 95/64 (74) 99 02/24/20 07:28 93 27 80 02/24/20 07:01 103/65 02/24/20 07:00 20 Mechanical Ventilator 80 02/24/20 07:00 106 25 91/59 (70) 94 02/24/20 06:30 87 26 90/61 (71) 96 02/24/20 06:04 92 27 02/24/20 06:01 97 22 92/59 (70) 97 02/24/20 06:00 92/59 02/24/20 06:00 25 Mechanical Ventilator 80 02/24/20 05:33 91 28 80 02/24/20 05:30 108 28 106/62 (77) 100 02/24/20 05:00 110 25 109/67 (81) 98 02/24/20 05:00 110/68 02/24/20 05:00 27 Mechanical Ventilator 80 02/24/20 04:30 107 29 109/71 (84) 98 02/24/20 04:00 80 02/24/20 04:00 Mechanical Ventilator 02/24/20 04:00 107/70 02/24/20 04:00 25 Mechanical Ventilator 80 02/24/20 04:00 99.0 87 21 105/68 (80) 98 02/24/20 04:00 105 02/24/20 03:30 90 26 80 02/24/20 03:30 93 26 102/67 (79) 98 02/24/20 03:00 96 24 102/67 (79) 98 02/24/20 03:00 101/69 02/24/20 03:00 25 Mechanical Ventilator 80 02/24/20 02:30 88 28 102/69 (80) 72 02/24/20 02:30 88 28 102/69 (80) 98 02/24/20 02:15 88 24 99/69 (79) 02/24/20 02:00 88 27 103/70 (81) 02/24/20 02:00 99/69 02/24/20 02:00 25 Mechanical Ventilator 80 02/24/20 02:00 88 27 103/70 (81) 97 02/24/20 01:45 92 27 103/66 (78) 02/24/20 01:30 88 29 103/67 (79) 02/24/20 01:30 88 29 103/67 (79) 97 02/24/20 01:30 92 30 80 02/24/20 01:22 84 28 102/68 (79) 02/24/20 01:15 97 26 86/57 (67) 02/24/20 01:15 106/68 02/24/20 01:00 93 27 106/68 (81) 100 02/24/20 01:00 86/57 02/24/20 01:00 27 Mechanical Ventilator 80 02/24/20 01:00 93 27 106/68 (81) 100 02/24/20 00:45 98 27 106/68 (81) 100 02/24/20 00:30 93 29 104/74 (84) 99 02/24/20 00:30 93 29 104/74 (84) 99 02/24/20 00:15 98 26 106/69 (81) 99 02/24/20 00:00 Mechanical Ventilator 02/24/20 00:00 80 02/24/20 00:00 103 30 115/72 (86) 100 02/24/20 00:00 106/69 02/24/20 00:00 27 Mechanical Ventilator 90 02/24/20 00:00 98.8 103 30 115/72 (86) 100 02/24/20 00:00 98 02/23/20 23:30 101 34 80 02/23/20 23:30 92 30 101/66 (78) 100 02/23/20 23:00 89 18 94/71 (79) 97 02/23/20 23:00 104/65 02/23/20 23:00 28 Mechanical Ventilator 90 02/23/20 22:30 99 28 107/69 (82) 100 02/23/20 22:00 91 23 97/73 (81) 97 02/23/20 22:00 97/73 02/23/20 22:00 27 Mechanical Ventilator 90 02/23/20 21:30 96 27 105/64 (78) 98 02/23/20 21:14 94 29 80 02/23/20 21:00 93 27 108/72 (84) 98 02/23/20 21:00 102/86 02/23/20 21:00 28 Mechanical Ventilator 90 02/23/20 20:31 76/50 02/23/20 20:30 91 26 102/66 (78) 98 02/23/20 20:00 58/37 02/23/20 20:00 21 Mechanical Ventilator 90 02/23/20 20:00 90 02/23/20 20:00 85 02/23/20 20:00 Mechanical Ventilator 02/23/20 20:00 89 24 58/37 (44) 97 02/23/20 19:30 95 30 80 02/23/20 19:30 99.8 87 23 101/69 (80) 97 02/23/20 19:00 98/64 02/23/20 19:00 22 Mechanical Ventilator 90 02/23/20 19:00 87 22 98/64 (75) 98 02/23/20 18:30 89 20 99/68 (78) 98 02/23/20 18:00 98/69 02/23/20 18:00 26 Mechanical Ventilator 90 02/23/20 18:00 86 26 98/69 (79) 98 02/23/20 17:30 87 22 103/70 (81) 99 02/23/20 17:15 87 25 102/67 (79) 99 02/23/20 17:00 83 27 99/66 (77) 98 02/23/20 17:00 99/66 02/23/20 17:00 23 Mechanical Ventilator 90 02/23/20 16:45 86 26 95/67 (76) 97 02/23/20 16:37 85 27 80 02/23/20 16:30 84 24 98/62 (74) 97 02/23/20 16:15 84 26 103/68 (80) 98 02/23/20 16:00 Mechanical Ventilator 02/23/20 16:00 88 02/23/20 16:00 103/68 02/23/20 16:00 27 Mechanical Ventilator 90 02/23/20 16:00 102/67 02/23/20 16:00 90 02/23/20 16:00 98.8 86 27 102/67 (79) 98 02/23/20 15:45 86 23 95/66 (76) 99 02/23/20 15:30 85 18 99/70 (80) 98 02/23/20 15:15 85 92/62 (72) 98 02/23/20 15:00 87 29 80 02/23/20 15:00 24 Mechanical Ventilator 90 02/23/20 15:00 96/63 02/23/20 15:00 87 28 96/63 (74) 98 02/23/20 14:48 88 02/23/20 14:45 85 26 92/67 (75) 99 02/23/20 14:30 86 27 93/68 (76) 99 Intake and Output 02/23/20 02/24/20 19:00 07:00 Intake Total 2564.73841 ml 2436.25 ml Output Total 405 ml 570 ml Balance 2159.24741 ml 1866.25 ml Intake Oral 0 ml IV Total 2564.37112 ml 2436.25 ml Output Urine Total 405 ml 570 ml Laboratory Tests 02/23/20 22:10: Lactic Acid Level 2.80H, Vancomycin Level Trough 6.1 02/23/20 23:45: Lactic Acid Level 3.00H 02/24/20 06:30: White Blood Count 12.4H, Red Blood Count 3.76L, Hemoglobin 11.3L, Hematocrit 33.0L, Mean Corpuscular Volume 88, Mean Corpuscular Hemoglobin 30.0, Mean Corpuscular Hemoglobin Concent 34.2, Red Cell Distribution Width 13.6, Platelet Count 315, Mean Platelet Volume 5.4L, Neutrophils (%) (Auto) , Lymphocytes (%) ( Auto) , Monocytes (%) (Auto) , Eosinophils (%) (Auto) , Basophils (%) (Auto) , Differential Total Cells Counted 100, Neutrophils % (Manual) 97H, Lymphocytes % (Manual) 2L, Monocytes % (Manual) 1, Eosinophils % (Manual) 0, Basophils % ( Manual) 0, Band Neutrophils 0, Platelet Estimate Adequate, Platelet Morphology Normal, Hypochromasia 1+, Anisocytosis 1+, Sodium Level 139, Potassium Level 3.5 , Chloride Level 107, Carbon Dioxide Level 24, Anion Gap 8, Blood Urea Nitrogen 8, Creatinine 0.6, Estimat Glomerular Filtration Rate > 60, Glucose Level 202H, Calcium Level 7.4L, Total Bilirubin 1.9H, Direct Bilirubin 1.2H, Aspartate Amino Transf (AST/SGOT) 26, Alanine Aminotransferase (ALT/SGPT) 23, Alkaline Phosphatase 74, Pro-B-Type Natriuretic Peptide > [id number], Total Protein 5.5L, Albumin 1.4L, Globulin 4.1, Albumin/Globulin Ratio 0.3L 02/24/20 08:27: Arterial Blood pH 7.372, Arterial Blood Partial Pressure CO2 38.2, Arterial Blood Partial Pressure O2 88.8, Arterial Blood HCO3 21.7L, Arterial Blood Oxygen Saturation 96.7, Arterial Blood Base Excess -3.2L, Kuldeep Test Positive 02/24/20 11:00: Vancomycin Level Trough 6.2 Height (Feet): 5 Height (Inches): 5.00 Weight (Pounds): 118 Objective General Appearance: other - intubated Lines, tubes and drains: peripheral HEENT: normocephalic, atraumatic, other - dry mucous membranes Neck: non-tender, normal alignment Respiratory/Chest: rhonchi - bilaterally Cardiovascular/Chest: normal peripheral pulses, normal rate Abdomen: soft, hypoactive bowel sounds Extremities: normal range of motion, no calf tenderness, non-pitting, no edema Skin Exam: normal pigmentation, warm/dry Dwayne Salas M.D. Feb 24, 2020 14:25
[2020-02-24] MEDS: Enoxaparin 40mg Inj SUBQ SCH (17:37)
[2020-02-24] MEDS: Dyna-Hex 2% Top Sol 2oz TOPIC SCH (20:28)
[2020-02-25] VITALS (51 sets, daily range): BP systolic 82–134; BP diastolic 48–82
[2020-02-25] MEDS: Piperacillin/Tazobactam 3.375 GM in D5W 110 ML IVPB SCH ×3 (00:53→17:11)
[2020-02-25] MEDS: Norepinephrine Bitartrate 8 MG in D5W 500ml 492 ML IV SCH ×5 (03:54→22:52)
[2020-02-25] MEDS: fentaNYL Citrate 2,500 MCG in NS 200 ML IV SCH ×2 (04:39→18:30)
[2020-02-25] MEDS: Vancomycin 1gm/D5W 275ml IVPB SCH ×4 (05:51→14:36)
[2020-02-25] MEDS: NovoLOG Insulin Flexpen SUBQ SCH ×3 (05:58→18:00)
[2020-02-25 06:21] LABS: HEMOGLOBIN 13.3 G/DL (14.2-18.0); MEAN CORPUSCULAR VOLUME 88 FL (80-99); PLATELET COUNT 131 K/UL (150-450); RED BLOOD COUNT 4.53 M/UL (4.70-6.10); RED CELL DISTRIBUTION WIDTH 13.5 % (11.6-14.8); WHITE BLOOD COUNT 10.8 K/UL (4.8-10.8)
[2020-02-25 06:31] LABS: ALANINE AMINOTRANSFERASE 16 U/L (12-78); ALBUMIN 1.6 G/DL (3.4-5.0); ALBUMIN/GLOBULIN RATIO 0.3 (1.0-2.7); ALKALINE PHOSPHATASE 93 U/L (46-116); ANION GAP 10 mmol/L (5-15); ASPARTATE AMINO TRANSFERASE 28 U/L (15-37); BILIRUBIN,TOTAL 3.8 MG/DL (0.2-1.0); BLOOD UREA NITROGEN 7 mg/dL (7-18); CALCIUM 8.2 MG/DL (8.5-10.1); CARBON DIOXIDE 23 MMOL/L (21-32); CHLORIDE 101 MMOL/L (98-107); CREATININE 0.6 MG/DL (0.55-1.30); POTASSIUM 3.8 MMOL/L (3.5-5.1); SODIUM 134 MMOL/L (136-145)
[2020-02-25 06:37] LABS: BILIRUBIN,DIRECT 1.5 MG/DL (0.0-0.3)
[2020-02-25 07:15] LABS: PHOSPHORUS 5.9 MG/DL (2.5-4.9)
[2020-02-25] MEDS: Pantoprazole Inj IVP SCH (08:28)
[2020-02-25] MEDS: Doxycycline Monohydrate 100mg ORAL SCH ×2 (08:28→21:23)
--- NOTE | 2020-02-25 11:11 | Nephrology Progress Note ---
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 # h/o DVT # schizophrenia, bipolar - continue icu care - monitor off IVF - replete lytes prn - vaso pressor per pulmonary - antibiotics per ICU - trend lactic acid - follow cx - vent management per pulmonary - monitor lytes - BG control - hold antihypertensive Subjective ROS Limited/Unobtainable: No Subjective lactic 3.7 remains hypotensive sodium 134 remains intubated Objective Objective Last 24 Hour Vital Signs Date Time Temp Pulse Resp B/P (MAP) Pulse Ox O2 Delivery O2 Flow Rate FiO2 02/25/20 09:05 83 24 80 02/25/20 08:00 81 02/25/20 07:15 80 22 80 02/25/20 06:31 109 02/25/20 06:30 87 26 02/25/20 06:00 84 17 89/60 (70) 100 02/25/20 06:00 106/67 02/25/20 06:00 18 Mechanical Ventilator 80 02/25/20 05:30 104 22 95/55 (68) 100 02/25/20 05:00 107 22 100/55 (70) 100 02/25/20 05:00 82/39 02/25/20 05:00 25 Mechanical Ventilator 80 02/25/20 04:50 107 28 80 02/25/20 04:50 98/58 02/25/20 04:39 22 Mechanical Ventilator 80 02/25/20 04:30 112 27 109/60 (76) 100 02/25/20 04:00 99.0 102 24 122/72 (89) 100 02/25/20 04:00 108/55 02/25/20 04:00 22 Mechanical Ventilator 80 02/25/20 04:00 80 02/25/20 04:00 Mechanical Ventilator 02/25/20 04:00 110 02/25/20 03:54 87/54 02/25/20 03:45 117 22 98/58 (71) 96 02/25/20 03:30 110 25 114/69 (84) 99 02/25/20 03:10 90 28 80 4/30/20 03:00 117/69 02/25/20 03:00 22 Mechanical Ventilator 80 02/25/20 03:00 105 22 109/71 (84) 100 02/25/20 02:30 116 22 96/59 (71) 97 02/25/20 02:00 87/51 02/25/20 02:00 22 Mechanical Ventilator 80 02/25/20 02:00 109 22 108/48 (68) 100 02/25/20 01:30 81 19 105/68 (80) 100 02/25/20 01:17 97 35 80 02/25/20 01:00 86 25 102/62 (75) 100 02/25/20 01:00 105 22 105/48 (67) 100 02/25/20 01:00 102/69 02/25/20 01:00 19 Mechanical Ventilator 80 02/25/20 00:45 88 26 101/62 (75) 99 02/25/20 00:30 87 27 93/64 (74) 99 02/25/20 00:00 110 02/25/20 00:00 101/60 02/25/20 00:00 23 Mechanical Ventilator 80 02/25/20 00:00 99.0 105 22 104/63 (77) 100 02/25/20 00:00 Mechanical Ventilator 02/25/20 00:00 80 02/24/20 23:30 104 21 101/66 (78) 100 02/24/20 23:25 99 31 80 02/24/20 23:00 122/67 02/24/20 23:00 26 Mechanical Ventilator 80 02/24/20 23:00 96 25 124/74 (91) 100 02/24/20 22:30 105 24 103/63 (76) 98 02/24/20 22:00 108 27 111/74 (86) 98 02/24/20 22:00 95/62 02/24/20 22:00 24 Mechanical Ventilator 80 02/24/20 21:30 112 20 81/59 (66) 94 02/24/20 21:13 101/68 02/24/20 21:05 85 27 80 02/24/20 21:00 110 26 101/68 (79) 99 02/24/20 21:00 92/57 02/24/20 21:00 25 Mechanical Ventilator 80 02/24/20 20:30 115 109/73 (85) 98 02/24/20 20:00 80 02/24/20 20:00 98.6 112 30 108/64 (79) 100 02/24/20 20:00 102/68 02/24/20 20:00 23 Mechanical Ventilator 80 02/24/20 20:00 32 Mechanical Ventilator 80 02/24/20 20:00 Mechanical Ventilator 02/24/20 20:00 89 02/24/20 19:30 89 21 89/53 (65) 98 02/24/20 19:00 79 27 80 02/24/20 18:00 114/65 02/24/20 18:00 20 Mechanical Ventilator 80 02/24/20 18:00 121 19 108/67 (81) 98 02/24/20 17:30 122 25 100/67 (78) 94 02/24/20 17:00 132 31 126/103 (111) 97 02/24/20 17:00 119/69 02/24/20 17:00 20 Mechanical Ventilator 80 02/24/20 16:30 120 27 115/69 (84) 99 02/24/20 16:00 99.0 101 25 101/68 (79) 94 02/24/20 16:00 118/69 02/24/20 16:00 20 Mechanical Ventilator 80 02/24/20 16:00 80 02/24/20 16:00 104 02/24/20 16:00 Mechanical Ventilator 02/24/20 15:30 92 24 103/69 (80) 100 02/24/20 15:09 119 31 80 02/24/20 15:00 108/74 02/24/20 15:00 20 Mechanical Ventilator 80 02/24/20 15:00 92 24 109/69 (82) 100 02/24/20 14:30 92 22 110/67 (81) 99 02/24/20 14:10 91/64 02/24/20 14:00 107/70 02/24/20 14:00 20 Mechanical Ventilator 80 02/24/20 14:00 86 19 91/64 (73) 100 02/24/20 13:30 87 20 102/62 (75) 98 02/24/20 13:00 89 24 102/68 (79) 100 02/24/20 13:00 100/69 02/24/20 13:00 20 Mechanical Ventilator 80 02/24/20 12:30 89 25 74/60 (65) 99 4/29/20 12:30 78/61 02/24/20 12:00 99.1 87 29 91/62 (72) 99 02/24/20 12:00 81 02/24/20 12:00 94/61 02/24/20 12:00 20 Mechanical Ventilator 80 02/24/20 12:00 80 02/24/20 12:00 Mechanical Ventilator 02/24/20 11:30 88 23 93/62 (72) 99 02/24/20 11:28 84 24 80 Intake and Output 02/24/20 02/25/20 19:00 07:00 Intake Total 1086.25 ml 1359 ml Output Total 800 ml 760 ml Balance 286.25 ml 599 ml Intake Oral 0 ml Free Water 60 ml IV Total 1016.25 ml 1009 ml Tube Feeding 70 ml 290 ml Output Urine Total 800 ml 760 ml Laboratory Tests 02/25/20 04:50: White Blood Count 10.8, Red Blood Count 4.53L, Hemoglobin 13.3L, Hematocrit 40.0L, Mean Corpuscular Volume 88, Mean Corpuscular Hemoglobin 29.4, Mean Corpuscular Hemoglobin Concent 33.3, Red Cell Distribution Width 13.5, Platelet Count 131#L, Mean Platelet Volume 5.7L, Neutrophils (%) (Auto) , Lymphocytes (% ) (Auto) , Monocytes (%) (Auto) , Eosinophils (%) (Auto) , Basophils (%) (Auto) , Differential Total Cells Counted 100, Neutrophils % (Manual) 95H, Lymphocytes % (Manual) 3L, Monocytes % (Manual) 2, Eosinophils % (Manual) 0, Basophils % ( Manual) 0, Band Neutrophils 0, Platelet Estimate DecreasedL, Platelet Morphology Normal, Anisocytosis 1+, Sodium Level 134L, Potassium Level 3.8, Chloride Level 101, Carbon Dioxide Level 23, Anion Gap 10, Blood Urea Nitrogen 7 , Creatinine 0.6, Estimat Glomerular Filtration Rate > 60, Glucose Level 183H, Lactic Acid Level 3.70H, Calcium Level 8.2L, Phosphorus Level 5.9H, Magnesium Level 2.4, Total Bilirubin 3.8H, Direct Bilirubin 1.5H, Aspartate Amino Transf ( AST/SGOT) 28, Alanine Aminotransferase (ALT/SGPT) 16, Alkaline Phosphatase 93, Total Protein 6.2L, Albumin 1.6L, Globulin 4.6, Albumin/Globulin Ratio 0.3L Height (Feet): 5 Height (Inches): 5.00 Weight (Pounds): 120 Objective General Appearance: other - intubated Lines, tubes and drains: peripheral HEENT: normocephalic, atraumatic, other - dry mucous membranes Neck: non-tender, normal alignment Respiratory/Chest: rhonchi - bilaterally Cardiovascular/Chest: normal peripheral pulses, normal rate Abdomen: soft, hypoactive bowel sounds Extremities: normal range of motion, no calf tenderness, non-pitting, no edema Skin Exam: normal pigmentation, warm/dry Dwayne Salas M.D. Feb 25, 2020 11:11
--- NOTE | 2020-02-25 12:22 | Pulmonology Progress Note ---
Assessment/Plan Assessment/Plan IMPRESSION: 1. Respiratory failure. 2. Bilateral pneumonia. + COVID 19 3. Pulmonary edema. 4. Diabetes mellitus. DISCUSSION: Positive COVID 19 pcr The patient is critically ill at this point in time. Noted Cardiology consultation. Continue broad-spectrum antibiotics. Continue respiratory support; will adjust vent settings I will follow carefully. Andrea Bland M.D. Subjective ROS Limited/Unobtainable: No Interval Events: Remains intubtaed; was intubated on 02/22/20 Constitutional: Reports: no symptoms HEENT: Repors: no symptoms Respiratory: Reports: no symptoms Cardiovascular: Reports: no symptoms Gastrointestinal/Abdominal: Denies: nausea, vomiting Genitourinary: Reports: no symptoms Skin: Denies: rash Endocrine: Reports: no symptoms Allergies: Coded Allergies: No Known Allergies (Unverified , 01/19/19) Subjective seen and evaluated Discussed with RN Objective Last 24 Hour Vital Signs Date Time Temp Pulse Resp B/P (MAP) Pulse Ox O2 Delivery O2 Flow Rate FiO2 02/25/20 12:12 110/56 02/25/20 11:05 105 24 80 02/25/20 11:00 107 101/64 (76) 98 02/25/20 10:30 117 103/65 (78) 94 02/25/20 10:00 129 24 111/64 (80) 97 02/25/20 09:30 120 24 117/71 (86) 98 02/25/20 09:05 83 24 80 02/25/20 09:00 84 16 83/59 (67) 98 02/25/20 08:30 83 18 99/59 (72) 100 02/25/20 08:00 81 02/25/20 08:00 Mechanical Ventilator 02/25/20 08:00 98.0 81 19 100/66 (77) 100 02/25/20 08:00 80 02/25/20 07:30 87 18 82/59 (67) 100 02/25/20 07:15 80 22 80 02/25/20 07:00 81 18 96/64 (75) 100 02/25/20 06:31 109 02/25/20 06:30 87 26 02/25/20 06:00 84 17 89/60 (70) 100 02/25/20 06:00 106/67 02/25/20 06:00 18 Mechanical Ventilator 80 02/25/20 05:30 104 22 95/55 (68) 100 02/25/20 05:00 107 22 100/55 (70) 100 02/25/20 05:00 82/39 02/25/20 05:00 25 Mechanical Ventilator 80 02/25/20 04:50 107 28 80 02/25/20 04:50 98/58 02/25/20 04:39 22 Mechanical Ventilator 80 02/25/20 04:30 112 27 109/60 (76) 100 02/25/20 04:00 99.0 102 24 122/72 (89) 100 02/25/20 04:00 108/55 02/25/20 04:00 22 Mechanical Ventilator 80 02/25/20 04:00 80 02/25/20 04:00 Mechanical Ventilator 02/25/20 04:00 110 02/25/20 03:54 87/54 02/25/20 03:45 117 22 98/58 (71) 96 02/25/20 03:30 110 25 114/69 (84) 99 02/25/20 03:10 90 28 80 02/25/20 03:00 117/69 02/25/20 03:00 22 Mechanical Ventilator 80 02/25/20 03:00 105 22 109/71 (84) 100 02/25/20 02:30 116 22 96/59 (71) 97 02/25/20 02:00 87/51 02/25/20 02:00 22 Mechanical Ventilator 80 02/25/20 02:00 109 22 108/48 (68) 100 02/25/20 01:30 81 19 105/68 (80) 100 02/25/20 01:17 97 35 80 02/25/20 01:00 86 25 102/62 (75) 100 02/25/20 01:00 105 22 105/48 (67) 100 02/25/20 01:00 102/69 02/25/20 01:00 19 Mechanical Ventilator 80 02/25/20 00:45 88 26 101/62 (75) 99 02/25/20 00:30 87 27 93/64 (74) 99 02/25/20 00:00 110 02/25/20 00:00 101/60 02/25/20 00:00 23 Mechanical Ventilator 80 02/25/20 00:00 99.0 105 22 104/63 (77) 100 02/25/20 00:00 Mechanical Ventilator 02/25/20 00:00 80 02/24/20 23:30 104 21 101/66 (78) 100 02/24/20 23:25 99 31 80 02/24/20 23:00 122/67 02/24/20 23:00 26 Mechanical Ventilator 80 02/24/20 23:00 96 25 124/74 (91) 100 02/24/20 22:30 105 24 103/63 (76) 98 02/24/20 22:00 108 27 111/74 (86) 98 02/24/20 22:00 95/62 02/24/20 22:00 24 Mechanical Ventilator 80 02/24/20 21:30 112 20 81/59 (66) 94 02/24/20 21:13 101/68 02/24/20 21:05 85 27 80 02/24/20 21:00 110 26 101/68 (79) 99 02/24/20 21:00 92/57 02/24/20 21:00 25 Mechanical Ventilator 80 02/24/20 20:30 115 109/73 (85) 98 02/24/20 20:00 80 02/24/20 20:00 98.6 112 30 108/64 (79) 100 02/24/20 20:00 102/68 02/24/20 20:00 23 Mechanical Ventilator 80 02/24/20 20:00 32 Mechanical Ventilator 80 02/24/20 20:00 Mechanical Ventilator 02/24/20 20:00 89 02/24/20 19:30 89 21 89/53 (65) 98 02/24/20 19:00 79 27 80 02/24/20 18:00 114/65 02/24/20 18:00 20 Mechanical Ventilator 80 02/24/20 18:00 121 19 108/67 (81) 98 02/24/20 17:30 122 25 100/67 (78) 94 02/24/20 17:00 132 31 126/103 (111) 97 02/24/20 17:00 119/69 02/24/20 17:00 20 Mechanical Ventilator 80 02/24/20 16:30 120 27 115/69 (84) 99 02/24/20 16:00 99.0 101 25 101/68 (79) 94 02/24/20 16:00 118/69 02/24/20 16:00 20 Mechanical Ventilator 80 02/24/20 16:00 80 02/24/20 16:00 104 02/24/20 16:00 Mechanical Ventilator 02/24/20 15:30 92 24 103/69 (80) 100 02/24/20 15:09 119 31 80 02/24/20 15:00 108/74 02/24/20 15:00 20 Mechanical Ventilator 80 02/24/20 15:00 92 24 109/69 (82) 100 02/24/20 14:30 92 22 110/67 (81) 99 02/24/20 14:10 91/64 02/24/20 14:00 107/70 02/24/20 14:00 20 Mechanical Ventilator 80 02/24/20 14:00 86 19 91/64 (73) 100 02/24/20 13:30 87 20 102/62 (75) 98 02/24/20 13:00 89 24 102/68 (79) 100 02/24/20 13:00 100/69 02/24/20 13:00 20 Mechanical Ventilator 80 02/24/20 12:30 89 25 74/60 (65) 99 02/24/20 12:30 78/61 Intake and Output 02/24/20 02/25/20 19:00 07:00 Intake Total 1086.25 ml 1434 ml Output Total 800 ml 760 ml Balance 286.25 ml 674 ml Intake Oral 0 ml Free Water 60 ml IV Total 1016.25 ml 1084 ml Tube Feeding 70 ml 290 ml Output Urine Total 800 ml 760 ml General Appearance: no acute distress HEENT: normocephalic, atraumatic, anicteric Respiratory/Chest: chest wall non-tender, decreased breath sounds Cardiovascular: normal peripheral pulses Abdomen: normal bowel sounds, soft, non tender, no organomegaly Extremities: no cyanosis Lymphatic: no neck adenopathy Microbiology Date/Time Source Procedure Growth Status 02/22/20 12:35 Nasal Nares MRSA Culture - Final Staphylococcus Aureus - Mrsa Complete Laboratory Tests 02/25/20 04:50: White Blood Count 10.8, Red Blood Count 4.53L, Hemoglobin 13.3L, Hematocrit 40.0L, Mean Corpuscular Volume 88, Mean Corpuscular Hemoglobin 29.4, Mean Corpuscular Hemoglobin Concent 33.3, Red Cell Distribution Width 13.5, Platelet Count 131#L, Mean Platelet Volume 5.7L, Neutrophils (%) (Auto) , Lymphocytes (% ) (Auto) , Monocytes (%) (Auto) , Eosinophils (%) (Auto) , Basophils (%) (Auto) , Differential Total Cells Counted 100, Neutrophils % (Manual) 95H, Lymphocytes % (Manual) 3L, Monocytes % (Manual) 2, Eosinophils % (Manual) 0, Basophils % ( Manual) 0, Band Neutrophils 0, Platelet Estimate DecreasedL, Platelet Morphology Normal, Anisocytosis 1+, Sodium Level 134L, Potassium Level 3.8, Chloride Level 101, Carbon Dioxide Level 23, Anion Gap 10, Blood Urea Nitrogen 7 , Creatinine 0.6, Estimat Glomerular Filtration Rate > 60, Glucose Level 183H, Lactic Acid Level 3.70H, Calcium Level 8.2L, Phosphorus Level 5.9H, Magnesium Level 2.4, Total Bilirubin 3.8H, Direct Bilirubin 1.5H, Aspartate Amino Transf ( AST/SGOT) 28, Alanine Aminotransferase (ALT/SGPT) 16, Alkaline Phosphatase 93, Total Protein 6.2L, Albumin 1.6L, Globulin 4.6, Albumin/Globulin Ratio 0.3L Current Medications Medications (Trade) Dose Ordered Sig/Cirilo Route PRN Reason Start Time Stop Time Status Last Admin Dose Admin Acetaminophen (Tylenol) 650 mg Q4H PRN ORAL Fever 02/22/20 14:15 03/23/20 14:14 Acetaminophen (Tylenol) 650 mg Q4H PRN ORAL Mild Pain (Pain Scale 1-3) 02/22/20 14:15 03/23/20 14:14 Acetaminophen (Tylenol) 650 mg Q4H PRN RECTAL Mild Pain (Pain Scale 1-3) 02/22/20 14:15 03/23/20 14:14 02/22/20 21:28 Acetaminophen (Tylenol) 650 mg Q4H PRN RECTAL FEVER 02/22/20 14:15 03/23/20 14:14 Chlorhexidine Gluconate (Maira-Hex 2%) 1 applic DAILY@2000 TOPIC 02/23/20 20:00 05/23/20 19:59 02/24/20 20:28 Dextrose (Dextrose 50%) 25 ml Q30M PRN IV Hypoglycemia 02/23/20 09:00 05/23/20 08:59 Dextrose (Dextrose 50%) 50 ml Q30M PRN IV Hypoglycemia 02/23/20 09:00 05/23/20 08:59 Diphenhydramine HCl (Benadryl) 25 mg Q6H PRN ORAL Itching/Pruritis 02/22/20 14:15 03/23/20 14:14 Doxycycline Monohydrate (Doxycycline Monohydrate) 100 mg EVERY 12 HOURS ORAL 02/24/20 09:00 03/02/20 08:59 02/25/20 08:28 Enoxaparin Sodium (Lovenox) 40 mg Q24H SUBQ 02/22/20 17:00 05/22/20 16:59 02/24/20 17:37 Fentanyl Citrate 2500 mcg/Sodium Chloride 250 ml @ 0 mls/hr Q24H IV 02/23/20 10:00 03/01/20 09:59 02/25/20 04:39 Hydroxychloroquine Sulfate (Plaquenil) 200 mg Q12HR ORAL 02/25/20 09:00 02/28/20 21:01 02/25/20 08:28 Insulin Aspart (NovoLOG) Q6HR SUBQ 02/23/20 12:00 05/23/20 11:59 02/25/20 05:58 Norepinephrine Bitartrate 8 mg/ Dextrose 500 ml @ 0 mls/hr Q24H IV 02/23/20 19:01 03/24/20 19:00 02/25/20 12:12 Pantoprazole (Protonix) 40 mg DAILY IVP 02/23/20 09:30 03/24/20 09:29 02/25/20 08:28 Piperacillin Sod/ Tazobactam Sod 3.375 gm/Dextrose 110 ml @ 27.5 mls/hr Q8H IVPB 02/23/20 01:00 03/01/20 00:59 02/25/20 08:58 Vancomycin HCl (Vanco rx to dose) 1 ea DAILY PRN MISC Per rx protocol 02/22/20 14:30 03/23/20 14:29 Vancomycin HCl 1 gm/Dextrose 275 ml @ 183.708 mls/hr Q8H IVPB 02/24/20 14:00 02/29/20 13:59 02/25/20 05:51 Andrea Bland MD Feb 25, 2020 12:22
--- NOTE | 2020-02-25 12:45 | General Progress Note ---
Assessment/Plan Assessment/Plan: 74 y/o M from [place], PMH HTN, DMT2, dementia, Alzheimers dx, h/o CVA/TIA, h/o DVT, schizophrenia who presents for Fever. In the ED, pt found to be septic, Tm 100.9 , RR22, WBC 7.3, Lactic acid 2.8, and ABG revealed acute hypoxic respiratory failure. Pt was intubated and will be admitted to ICU for acute hypoxic respiratory failure and pending COVID r/o. #Septic shock 2/2 #Acute Hypoxic Respiratory Failure #HCAP #COVID positive #Lactic Acidosis -Appreciate ICU level care -pt intubated in ED, 02/21 -vent management per CCU team/Pulm, wean as tolerated -Cont. COVID isolation protocol -COVID PCR positive -elevated d-dimer and BNP likely 2/2 above -cont. pressure support, wean as tolerated -cont. fentanyl for sedation -cont. vanc/zosyn -BCx diptheroids -echo ordered, on hold due to COVID -Pulm, Dr. Bland, no indication for thora at this time -ID: doxy, plaquenil, vanc #Hypernatremia - improved -likely 2/2 dehydration -careful w/IVF given BNP elevated -daily BMPs -nephro consulted, recs appreciated #Type 2 DM -holding home metformin -ISS sensitive, accuchecks q6h #HTN -holding home bp meds given septic shock -holding Lasix 20 mg q daily, benazepril 5 mg q daily #Alzheimer disease #Dementia #Schizophrenia #Bipolar dx -reviewed MAR from [place], no home meds for schizophrenia/bipolar dx noted -holding home aricept given clinical picture DVT PPx: lovenox Time spent: 36 mins, 20 mins spent on coordination of care, d/w ID, Pulm. Time of note may not reflect time of encounter. Subjective Allergies: Coded Allergies: No Known Allergies (Unverified , 01/19/19) Subjective F/u for acute respiratory failure, COVID+, s/p intubation on 02/21. Pt remains on pressure support. Afebrile. Patient remains intubated, unable to obtain ROS due to clinical picture. Objective Last 24 Hour Vital Signs Date Time Temp Pulse Resp B/P (MAP) Pulse Ox O2 Delivery O2 Flow Rate FiO2 02/25/20 12:12 110/56 02/25/20 11:05 105 24 80 02/25/20 11:00 107 101/64 (76) 98 02/25/20 10:30 117 103/65 (78) 94 02/25/20 10:00 129 24 111/64 (80) 97 02/25/20 09:30 120 24 117/71 (86) 98 02/25/20 09:05 83 24 80 02/25/20 09:00 84 16 83/59 (67) 98 02/25/20 08:30 83 18 99/59 (72) 100 02/25/20 08:00 81 02/25/20 08:00 Mechanical Ventilator 02/25/20 08:00 98.0 81 19 100/66 (77) 100 02/25/20 08:00 80 02/25/20 07:30 87 18 82/59 (67) 100 02/25/20 07:15 80 22 80 02/25/20 07:00 81 18 96/64 (75) 100 02/25/20 06:31 109 02/25/20 06:30 87 26 02/25/20 06:00 84 17 89/60 (70) 100 02/25/20 06:00 106/67 02/25/20 06:00 18 Mechanical Ventilator 80 02/25/20 05:30 104 22 95/55 (68) 100 02/25/20 05:00 107 22 100/55 (70) 100 02/25/20 05:00 82/39 02/25/20 05:00 25 Mechanical Ventilator 80 02/25/20 04:50 107 28 80 02/25/20 04:50 98/58 02/25/20 04:39 22 Mechanical Ventilator 80 02/25/20 04:30 112 27 109/60 (76) 100 02/25/20 04:00 99.0 102 24 122/72 (89) 100 02/25/20 04:00 108/55 02/25/20 04:00 22 Mechanical Ventilator 80 02/25/20 04:00 80 02/25/20 04:00 Mechanical Ventilator 02/25/20 04:00 110 02/25/20 03:54 87/54 02/25/20 03:45 117 22 98/58 (71) 96 02/25/20 03:30 110 25 114/69 (84) 99 02/25/20 03:10 90 28 80 02/25/20 03:00 117/69 02/25/20 03:00 22 Mechanical Ventilator 80 02/25/20 03:00 105 22 109/71 (84) 100 02/25/20 02:30 116 22 96/59 (71) 97 02/25/20 02:00 87/51 02/25/20 02:00 22 Mechanical Ventilator 80 02/25/20 02:00 109 22 108/48 (68) 100 02/25/20 01:30 81 19 105/68 (80) 100 02/25/20 01:17 97 35 80 02/25/20 01:00 86 25 102/62 (75) 100 02/25/20 01:00 105 22 105/48 (67) 100 02/25/20 01:00 102/69 02/25/20 01:00 19 Mechanical Ventilator 80 02/25/20 00:45 88 26 101/62 (75) 99 02/25/20 00:30 87 27 93/64 (74) 99 02/25/20 00:00 110 02/25/20 00:00 101/60 02/25/20 00:00 23 Mechanical Ventilator 80 02/25/20 00:00 99.0 105 22 104/63 (77) 100 02/25/20 00:00 Mechanical Ventilator 02/25/20 00:00 80 02/24/20 23:30 104 21 101/66 (78) 100 02/24/20 23:25 99 31 80 02/24/20 23:00 122/67 02/24/20 23:00 26 Mechanical Ventilator 80 02/24/20 23:00 96 25 124/74 (91) 100 02/24/20 22:30 105 24 103/63 (76) 98 02/24/20 22:00 108 27 111/74 (86) 98 02/24/20 22:00 95/62 02/24/20 22:00 24 Mechanical Ventilator 80 02/24/20 21:30 112 20 81/59 (66) 94 02/24/20 21:13 101/68 02/24/20 21:05 85 27 80 02/24/20 21:00 110 26 101/68 (79) 99 02/24/20 21:00 92/57 02/24/20 21:00 25 Mechanical Ventilator 80 02/24/20 20:30 115 109/73 (85) 98 02/24/20 20:00 80 02/24/20 20:00 98.6 112 30 108/64 (79) 100 02/24/20 20:00 102/68 02/24/20 20:00 23 Mechanical Ventilator 80 02/24/20 20:00 32 Mechanical Ventilator 80 02/24/20 20:00 Mechanical Ventilator 02/24/20 20:00 89 02/24/20 19:30 89 21 89/53 (65) 98 02/24/20 19:00 79 27 80 02/24/20 18:00 114/65 02/24/20 18:00 20 Mechanical Ventilator 80 02/24/20 18:00 121 19 108/67 (81) 98 02/24/20 17:30 122 25 100/67 (78) 94 02/24/20 17:00 132 31 126/103 (111) 97 02/24/20 17:00 119/69 02/24/20 17:00 20 Mechanical Ventilator 80 02/24/20 16:30 120 27 115/69 (84) 99 02/24/20 16:00 99.0 101 25 101/68 (79) 94 02/24/20 16:00 118/69 02/24/20 16:00 20 Mechanical Ventilator 80 02/24/20 16:00 80 02/24/20 16:00 104 02/24/20 16:00 Mechanical Ventilator 02/24/20 15:30 92 24 103/69 (80) 100 02/24/20 15:09 119 31 80 02/24/20 15:00 108/74 02/24/20 15:00 20 Mechanical Ventilator 80 02/24/20 15:00 92 24 109/69 (82) 100 02/24/20 14:30 92 22 110/67 (81) 99 02/24/20 14:10 91/64 02/24/20 14:00 107/70 02/24/20 14:00 20 Mechanical Ventilator 80 02/24/20 14:00 86 19 91/64 (73) 100 02/24/20 13:30 87 20 102/62 (75) 98 02/24/20 13:00 89 24 102/68 (79) 100 02/24/20 13:00 100/69 02/24/20 13:00 20 Mechanical Ventilator 80 Intake and Output 02/24/20 02/25/20 19:00 07:00 Intake Total 1086.25 ml 1434 ml Output Total 800 ml 760 ml Balance 286.25 ml 674 ml Intake Oral 0 ml Free Water 60 ml IV Total 1016.25 ml 1084 ml Tube Feeding 70 ml 290 ml Output Urine Total 800 ml 760 ml Laboratory Tests 02/25/20 04:50: White Blood Count 10.8, Red Blood Count 4.53L, Hemoglobin 13.3L, Hematocrit 40.0L, Mean Corpuscular Volume 88, Mean Corpuscular Hemoglobin 29.4, Mean Corpuscular Hemoglobin Concent 33.3, Red Cell Distribution Width 13.5, Platelet Count 131#L, Mean Platelet Volume 5.7L, Neutrophils (%) (Auto) , Lymphocytes (% ) (Auto) , Monocytes (%) (Auto) , Eosinophils (%) (Auto) , Basophils (%) (Auto) , Differential Total Cells Counted 100, Neutrophils % (Manual) 95H, Lymphocytes % (Manual) 3L, Monocytes % (Manual) 2, Eosinophils % (Manual) 0, Basophils % ( Manual) 0, Band Neutrophils 0, Platelet Estimate DecreasedL, Platelet Morphology Normal, Anisocytosis 1+, Sodium Level 134L, Potassium Level 3.8, Chloride Level 101, Carbon Dioxide Level 23, Anion Gap 10, Blood Urea Nitrogen 7 , Creatinine 0.6, Estimat Glomerular Filtration Rate > 60, Glucose Level 183H, Lactic Acid Level 3.70H, Calcium Level 8.2L, Phosphorus Level 5.9H, Magnesium Level 2.4, Total Bilirubin 3.8H, Direct Bilirubin 1.5H, Aspartate Amino Transf ( AST/SGOT) 28, Alanine Aminotransferase (ALT/SGPT) 16, Alkaline Phosphatase 93, Total Protein 6.2L, Albumin 1.6L, Globulin 4.6, Albumin/Globulin Ratio 0.3L Height (Feet): 5 Height (Inches): 5.00 Weight (Pounds): 120 Objective General: intubated, sedated HEENT: NCAT, ETT in place, OG tube in place CV: Tachycardic on tele Pulm: equal rise in lungs b/l GI: abd appears non-distended Ext: No lower extremity edema bilaterally Gosia Nunez M.D. Feb 25, 2020 12:45
--- NOTE | 2020-02-25 14:22 | Cardiac Electrophysiology PN ---
Assessment/Plan Assessment/Plan 1. Respiratory failure likely due to COVID pneumonia However, cannot rule out underlying CHF as BNP is more than 2000. Echo EF 50%. His white count however is only 7.2 with lymphopenia On the Vent 80% Fio2, PEEP 5 2. Septic shock likely due to pneumonia and dehydration. On Levo 20 mcg and D51/2 ns at 50 cc/hr 3. Hypernatremia, sodium 150. Resolved with IV fluids. 4. Dehydration. Subjective Subjective Still on Levo 20 mcg on the vent Fio2 80%. EF 50%. Covid PCR is positive Objective Last 24 Hour Vital Signs Date Time Temp Pulse Resp B/P (MAP) Pulse Ox O2 Delivery O2 Flow Rate FiO2 02/25/20 13:05 87 24 80 02/25/20 12:12 110/56 02/25/20 11:05 105 24 80 02/25/20 11:00 107 101/64 (76) 98 02/25/20 10:30 117 103/65 (78) 94 02/25/20 10:00 129 24 111/64 (80) 97 02/25/20 09:30 120 24 117/71 (86) 98 02/25/20 09:05 83 24 80 02/25/20 09:00 84 16 83/59 (67) 98 02/25/20 08:30 83 18 99/59 (72) 100 02/25/20 08:00 81 02/25/20 08:00 Mechanical Ventilator 02/25/20 08:00 98.0 81 19 100/66 (77) 100 02/25/20 08:00 80 02/25/20 07:30 87 18 82/59 (67) 100 02/25/20 07:15 80 22 80 02/25/20 07:00 81 18 96/64 (75) 100 02/25/20 06:31 109 02/25/20 06:30 87 26 02/25/20 06:00 84 17 89/60 (70) 100 02/25/20 06:00 106/67 02/25/20 06:00 18 Mechanical Ventilator 80 02/25/20 05:30 104 22 95/55 (68) 100 02/25/20 05:00 107 22 100/55 (70) 100 02/25/20 05:00 82/39 02/25/20 05:00 25 Mechanical Ventilator 80 02/25/20 04:50 107 28 80 02/25/20 04:50 98/58 02/25/20 04:39 22 Mechanical Ventilator 80 02/25/20 04:30 112 27 109/60 (76) 100 02/25/20 04:00 99.0 102 24 122/72 (89) 100 02/25/20 04:00 108/55 02/25/20 04:00 22 Mechanical Ventilator 80 02/25/20 04:00 80 02/25/20 04:00 Mechanical Ventilator 02/25/20 04:00 110 02/25/20 03:54 87/54 02/25/20 03:45 117 22 98/58 (71) 96 02/25/20 03:30 110 25 114/69 (84) 99 02/25/20 03:10 90 28 80 02/25/20 03:00 117/69 02/25/20 03:00 22 Mechanical Ventilator 80 02/25/20 03:00 105 22 109/71 (84) 100 02/25/20 02:30 116 22 96/59 (71) 97 02/25/20 02:00 87/51 02/25/20 02:00 22 Mechanical Ventilator 80 02/25/20 02:00 109 22 108/48 (68) 100 02/25/20 01:30 81 19 105/68 (80) 100 02/25/20 01:17 97 35 80 02/25/20 01:00 86 25 102/62 (75) 100 02/25/20 01:00 105 22 105/48 (67) 100 02/25/20 01:00 102/69 02/25/20 01:00 19 Mechanical Ventilator 80 02/25/20 00:45 88 26 101/62 (75) 99 02/25/20 00:30 87 27 93/64 (74) 99 02/25/20 00:00 110 02/25/20 00:00 101/60 02/25/20 00:00 23 Mechanical Ventilator 80 02/25/20 00:00 99.0 105 22 104/63 (77) 100 02/25/20 00:00 Mechanical Ventilator 02/25/20 00:00 80 02/24/20 23:30 104 21 101/66 (78) 100 02/24/20 23:25 99 31 80 4/29/20 23:00 122/67 02/24/20 23:00 26 Mechanical Ventilator 80 02/24/20 23:00 96 25 124/74 (91) 100 02/24/20 22:30 105 24 103/63 (76) 98 02/24/20 22:00 108 27 111/74 (86) 98 02/24/20 22:00 95/62 02/24/20 22:00 24 Mechanical Ventilator 80 02/24/20 21:30 112 20 81/59 (66) 94 02/24/20 21:13 101/68 02/24/20 21:05 85 27 80 02/24/20 21:00 110 26 101/68 (79) 99 02/24/20 21:00 92/57 02/24/20 21:00 25 Mechanical Ventilator 80 02/24/20 20:30 115 109/73 (85) 98 02/24/20 20:00 80 02/24/20 20:00 98.6 112 30 108/64 (79) 100 02/24/20 20:00 102/68 02/24/20 20:00 23 Mechanical Ventilator 80 02/24/20 20:00 32 Mechanical Ventilator 80 02/24/20 20:00 Mechanical Ventilator 02/24/20 20:00 89 02/24/20 19:30 89 21 89/53 (65) 98 02/24/20 19:00 79 27 80 02/24/20 18:00 114/65 02/24/20 18:00 20 Mechanical Ventilator 80 02/24/20 18:00 121 19 108/67 (81) 98 02/24/20 17:30 122 25 100/67 (78) 94 02/24/20 17:00 132 31 126/103 (111) 97 02/24/20 17:00 119/69 02/24/20 17:00 20 Mechanical Ventilator 80 02/24/20 16:30 120 27 115/69 (84) 99 02/24/20 16:00 99.0 101 25 101/68 (79) 94 02/24/20 16:00 118/69 02/24/20 16:00 20 Mechanical Ventilator 80 02/24/20 16:00 80 02/24/20 16:00 104 02/24/20 16:00 Mechanical Ventilator 02/24/20 15:30 92 24 103/69 (80) 100 02/24/20 15:09 119 31 80 02/24/20 15:00 108/74 02/24/20 15:00 20 Mechanical Ventilator 80 02/24/20 15:00 92 24 109/69 (82) 100 02/24/20 14:30 92 22 110/67 (81) 99 Intake and Output 02/24/20 02/25/20 19:00 07:00 Intake Total 1086.25 ml 1434 ml Output Total 800 ml 760 ml Balance 286.25 ml 674 ml Intake Oral 0 ml Free Water 60 ml IV Total 1016.25 ml 1084 ml Tube Feeding 70 ml 290 ml Output Urine Total 800 ml 760 ml Laboratory Tests Test 02/25/20 04:50 White Blood Count 10.8 K/UL (4.8-10.8) Red Blood Count 4.53 M/UL (4.70-6.10) L Hemoglobin 13.3 G/DL (14.2-18.0) L Hematocrit 40.0 % (42.0-52.0) L Mean Corpuscular Volume 88 FL (80-99) Mean Corpuscular Hemoglobin 29.4 PG (27.0-31.0) Mean Corpuscular Hemoglobin Concent 33.3 G/DL (32.0-36.0) Red Cell Distribution Width 13.5 % (11.6-14.8) Platelet Count 131 K/UL (150-450) #L Mean Platelet Volume 5.7 FL (6.5-10.1) L Neutrophils (%) (Auto) % (45.0-75.0) Lymphocytes (%) (Auto) % (20.0-45.0) Monocytes (%) (Auto) % (1.0-10.0) Eosinophils (%) (Auto) % (0.0-3.0) Basophils (%) (Auto) % (0.0-2.0) Differential Total Cells Counted 100 Neutrophils % (Manual) 95 % (45-75) H Lymphocytes % (Manual) 3 % (20-45) L Monocytes % (Manual) 2 % (1-10) Eosinophils % (Manual) 0 % (0-3) Basophils % (Manual) 0 % (0-2) Band Neutrophils 0 % (0-8) Platelet Estimate Decreased L Platelet Morphology Normal Anisocytosis 1+ Sodium Level 134 MMOL/L (136-145) L Potassium Level 3.8 MMOL/L (3.5-5.1) Chloride Level 101 MMOL/L (98-107) Carbon Dioxide Level 23 MMOL/L (21-32) Anion Gap 10 mmol/L (5-15) Blood Urea Nitrogen 7 mg/dL (7-18) Creatinine 0.6 MG/DL (0.55-1.30) Estimat Glomerular Filtration Rate > 60 mL/min (>60) Glucose Level 183 MG/DL (74-106) H Lactic Acid Level 3.70 mmol/L (0.4-2.0) H Calcium Level 8.2 MG/DL (8.5-10.1) L Phosphorus Level 5.9 MG/DL (2.5-4.9) H Magnesium Level 2.4 MG/DL (1.8-2.4) Total Bilirubin 3.8 MG/DL (0.2-1.0) H Direct Bilirubin 1.5 MG/DL (0.0-0.3) H Aspartate Amino Transf (AST/SGOT) 28 U/L (15-37) Alanine Aminotransferase (ALT/SGPT) 16 U/L (12-78) Alkaline Phosphatase 93 U/L (46-116) Total Protein 6.2 G/DL (6.4-8.2) L Albumin 1.6 G/DL (3.4-5.0) L Globulin 4.6 g/dL Albumin/Globulin Ratio 0.3 (1.0-2.7) L Objective HEAD AND NECK: Showed no JVD. He is orally intubated. LUNGS: Decreased breath sounds and coarse rhonchi. CARDIOVASCULAR: Regular S1 and S2 with no gallop. ABDOMEN: Soft. EXTREMITIES: No pitting edema. Deric Garcia MD Feb 25, 2020 14:22
[2020-02-25] MEDS: Enoxaparin 40mg Inj SUBQ SCH (17:00)
[2020-02-25] MEDS: Dyna-Hex 2% Top Sol 2oz TOPIC SCH (20:06)
--- NOTE | 2020-02-25 20:24 | Infectious Diseases Prog Note ---
Assessment/Plan Assessment/Plan ASSESSMENT AND PLAN: 1. covid-19 virus infection/pna +, rule out bacterial pna, sepsis, shock, leukocytosis, vent, pressors, mrsa colonization bc - one bottle - diphtheroids - likely contaminat - zosyn, doxycycline, vancomycin -day # 3 - hydroxychloroquine - day # 2 - f/u on cultures, labs and chest x-ray - condition - critical - icu care 2. Respiratory failure, on vent. 3. ICU care. 4. Pressors. 5. Low potassium or hypokalemia. 6. Diabetes. 7. Hypertension. 8. Alzheimer's. 9. CVA. 10. TIA. 11. DVT. 12. Dementia. 13. Aspiration risk. 14. No known drug allergies. 15. Social history negative. 16. Family history is noncontributory. 17. MAR was noted. 18. Case discussed with RN. 19. Poor prognosis. 20. Skin care protocol. 21. Case discussed with Dr. Nunez. Subjective Constitutional: Reports: fever - less, other - on vent and pressors HEENT: Reports: congestion Respiratory: Reports: shortness of breath Cardiovascular: Denies: chest pain Gastrointestinal/Abdominal: Denies: nausea, vomiting, diarrhea Genitourinary: Reports: other - + rush Neurologic: Reports: weakness, other - sedated Psychiatric: Reports: other - NA Skin: Denies: rash Hematologic: Denies: bleeding Musculoskeletal: Reports: other - NA Allergies: Coded Allergies: No Known Allergies (Unverified , 01/19/19) Objective Vital Signs Last 24 Hour Vital Signs Date Time Temp Pulse Resp B/P (MAP) Pulse Ox O2 Delivery O2 Flow Rate FiO2 02/25/20 19:00 104 14 102/62 (75) 96 02/25/20 18:30 125 19 114/63 (80) 94 02/25/20 18:30 Mechanical Ventilator 02/25/20 18:00 128 21 111/63 (79) 97 02/25/20 17:30 118 22 122/68 (86) 97 02/25/20 17:20 85 22 80 02/25/20 17:16 111/61 02/25/20 17:11 Mechanical Ventilator 02/25/20 17:00 78 19 111/61 (78) 99 02/25/20 16:30 84 19 94/54 (67) 99 02/25/20 16:00 98.3 85 19 93/56 (68) 99 02/25/20 16:00 Mechanical Ventilator 02/25/20 16:00 83 02/25/20 16:00 Mechanical Ventilator 02/25/20 16:00 80 02/25/20 15:00 Mechanical Ventilator 02/25/20 15:00 85 19 95/57 (70) 96 02/25/20 14:30 96 19 95/56 (69) 99 02/25/20 14:00 88 19 96/53 (67) 99 02/25/20 14:00 Mechanical Ventilator 02/25/20 13:30 90 19 98/61 (73) 99 02/25/20 13:05 87 24 80 02/25/20 13:00 Mechanical Ventilator 02/25/20 13:00 99 21 104/65 (78) 99 02/25/20 12:30 89 21 100/64 (76) 99 02/25/20 12:12 110/56 02/25/20 12:12 Mechanical Ventilator 02/25/20 12:00 Mechanical Ventilator 02/25/20 12:00 98 18 97/57 (70) 99 02/25/20 12:00 80 02/25/20 12:00 72 02/25/20 11:30 92 18 96/61 (73) 98 02/25/20 11:05 105 24 80 02/25/20 11:00 Mechanical Ventilator 02/25/20 11:00 107 101/64 (76) 98 02/25/20 10:30 117 103/65 (78) 94 02/25/20 10:00 129 24 111/64 (80) 97 02/25/20 09:30 120 24 117/71 (86) 98 02/25/20 09:05 83 24 80 02/25/20 09:00 84 16 83/59 (67) 98 02/25/20 08:30 83 18 99/59 (72) 100 02/25/20 08:00 81 02/25/20 08:00 Mechanical Ventilator 02/25/20 08:00 98.0 81 19 100/66 (77) 100 02/25/20 08:00 80 02/25/20 07:30 87 18 82/59 (67) 100 02/25/20 07:15 80 22 80 02/25/20 07:00 81 18 96/64 (75) 100 02/25/20 06:31 109 02/25/20 06:30 87 26 02/25/20 06:00 84 17 89/60 (70) 100 02/25/20 06:00 106/67 02/25/20 06:00 18 Mechanical Ventilator 80 02/25/20 05:30 104 22 95/55 (68) 100 02/25/20 05:00 107 22 100/55 (70) 100 02/25/20 05:00 82/39 02/25/20 05:00 25 Mechanical Ventilator 80 02/25/20 04:50 107 28 80 02/25/20 04:50 98/58 02/25/20 04:39 22 Mechanical Ventilator 80 02/25/20 04:30 112 27 109/60 (76) 100 02/25/20 04:00 99.0 102 24 122/72 (89) 100 02/25/20 04:00 108/55 02/25/20 04:00 22 Mechanical Ventilator 80 02/25/20 04:00 80 02/25/20 04:00 Mechanical Ventilator 02/25/20 04:00 110 02/25/20 03:54 87/54 02/25/20 03:45 117 22 98/58 (71) 96 02/25/20 03:30 110 25 114/69 (84) 99 02/25/20 03:10 90 28 80 02/25/20 03:00 117/69 02/25/20 03:00 22 Mechanical Ventilator 80 02/25/20 03:00 105 22 109/71 (84) 100 02/25/20 02:30 116 22 96/59 (71) 97 02/25/20 02:00 87/51 02/25/20 02:00 22 Mechanical Ventilator 80 02/25/20 02:00 109 22 108/48 (68) 100 02/25/20 01:30 81 19 105/68 (80) 100 02/25/20 01:17 97 35 80 02/25/20 01:00 86 25 102/62 (75) 100 02/25/20 01:00 105 22 105/48 (67) 100 02/25/20 01:00 102/69 02/25/20 01:00 19 Mechanical Ventilator 80 02/25/20 00:45 88 26 101/62 (75) 99 02/25/20 00:30 87 27 93/64 (74) 99 02/25/20 00:00 110 02/25/20 00:00 101/60 02/25/20 00:00 23 Mechanical Ventilator 80 02/25/20 00:00 99.0 105 22 104/63 (77) 100 02/25/20 00:00 Mechanical Ventilator 02/25/20 00:00 80 02/24/20 23:30 104 21 101/66 (78) 100 02/24/20 23:25 99 31 80 02/24/20 23:00 122/67 02/24/20 23:00 26 Mechanical Ventilator 80 02/24/20 23:00 96 25 124/74 (91) 100 02/24/20 22:30 105 24 103/63 (76) 98 02/24/20 22:00 108 27 111/74 (86) 98 02/24/20 22:00 95/62 02/24/20 22:00 24 Mechanical Ventilator 80 02/24/20 21:30 112 20 81/59 (66) 94 02/24/20 21:13 101/68 02/24/20 21:05 85 27 80 02/24/20 21:00 110 26 101/68 (79) 99 02/24/20 21:00 92/57 02/24/20 21:00 25 Mechanical Ventilator 80 02/24/20 20:30 115 109/73 (85) 98 Height (Feet): 5 Height (Inches): 5.00 Weight (Pounds): 120 General Appearance: other - sedated, on vent and pressors HEENT: normocephalic, atraumatic, anicteric, no JVD, other - oral - intubated Respiratory/Chest: crackles/rales, rhonchi - bilaterally Cardiovascular: normal rate, regular rhythm, no gallop/murmur, no JVD Abdomen: normal bowel sounds, soft, non tender, non distended Genitourinary: other - + rush - urine clear Extremities: no cyanosis Skin: no rash Neurologic/Psychiatric: other - sedated, weak, on vent Lymphatic: no neck adenopathy Musculoskeletal: no effusion Objective Chest x-ray - 02/23/30 - Procedure: XRAY Chest 1v Indication: Respiratory failure shortness of breath Technique: XRAY Chest 1v Comparison: 02/22/2020 Findings: Heart borders are obscured. Interstitial and extensive predominantly perihilar airspace opacities are noted. There is slight decrease in opacification in the right midlung but there is worsening of disease in the left lung. Is been development of a small layering left pleural effusion. Endotracheal tube tip approximately 1.2 cm above the holly. Enteric tube tip in the distal stomach. Osseous structures are stable. There are atherosclerotic calcifications. IMPRESSION: Overall worsening of aeration with increasing airspace disease in the left lung and development of a small layering left pleural effusion. Persistent patchy perihilar opacities in the right lung. Endotracheal and enteric tubes remain in place. Tip of the ET tube approximately 1.2 cm above the holly. Consider slight retraction (1-2 cms). 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 Complete Laboratory Tests Test 02/25/20 04:50 02/25/20 15:10 02/25/20 15:15 White Blood Count 10.8 K/UL (4.8-10.8) Red Blood Count 4.53 M/UL (4.70-6.10) L Hemoglobin 13.3 G/DL (14.2-18.0) L Hematocrit 40.0 % (42.0-52.0) L Mean Corpuscular Volume 88 FL (80-99) Mean Corpuscular Hemoglobin 29.4 PG (27.0-31.0) Mean Corpuscular Hemoglobin Concent 33.3 G/DL (32.0-36.0) Red Cell Distribution Width 13.5 % (11.6-14.8) Platelet Count 131 K/UL (150-450) #L Mean Platelet Volume 5.7 FL (6.5-10.1) L Neutrophils (%) (Auto) % (45.0-75.0) Lymphocytes (%) (Auto) % (20.0-45.0) Monocytes (%) (Auto) % (1.0-10.0) Eosinophils (%) (Auto) % (0.0-3.0) Basophils (%) (Auto) % (0.0-2.0) Differential Total Cells Counted 100 Neutrophils % (Manual) 95 % (45-75) H Lymphocytes % (Manual) 3 % (20-45) L Monocytes % (Manual) 2 % (1-10) Eosinophils % (Manual) 0 % (0-3) Basophils % (Manual) 0 % (0-2) Band Neutrophils 0 % (0-8) Platelet Estimate Decreased L Platelet Morphology Normal Anisocytosis 1+ Sodium Level 134 MMOL/L (136-145) L Potassium Level 3.8 MMOL/L (3.5-5.1) Chloride Level 101 MMOL/L (98-107) Carbon Dioxide Level 23 MMOL/L (21-32) Anion Gap 10 mmol/L (5-15) Blood Urea Nitrogen 7 mg/dL (7-18) Creatinine 0.6 MG/DL (0.55-1.30) Estimat Glomerular Filtration Rate > 60 mL/min (>60) Glucose Level 183 MG/DL (74-106) H Lactic Acid Level 3.70 mmol/L (0.4-2.0) H 2.30 mmol/L (0.4-2.0) H Calcium Level 8.2 MG/DL (8.5-10.1) L Phosphorus Level 5.9 MG/DL (2.5-4.9) H Magnesium Level 2.4 MG/DL (1.8-2.4) Total Bilirubin 3.8 MG/DL (0.2-1.0) H Direct Bilirubin 1.5 MG/DL (0.0-0.3) H Aspartate Amino Transf (AST/SGOT) 28 U/L (15-37) Alanine Aminotransferase (ALT/SGPT) 16 U/L (12-78) Alkaline Phosphatase 93 U/L (46-116) Total Protein 6.2 G/DL (6.4-8.2) L Albumin 1.6 G/DL (3.4-5.0) L Globulin 4.6 g/dL Albumin/Globulin Ratio 0.3 (1.0-2.7) L Vancomycin Level Trough 7.9 ug/mL (5.0-12.0) Current Medications Medications (Trade) Dose Ordered Sig/Cirilo Route PRN Reason Start Time Stop Time Status Last Admin Dose Admin Acetaminophen (Tylenol) 650 mg Q4H PRN ORAL Fever 02/22/20 14:15 03/23/20 14:14 Acetaminophen (Tylenol) 650 mg Q4H PRN ORAL Mild Pain (Pain Scale 1-3) 02/22/20 14:15 03/23/20 14:14 Acetaminophen (Tylenol) 650 mg Q4H PRN RECTAL Mild Pain (Pain Scale 1-3) 02/22/20 14:15 03/23/20 14:14 02/22/20 21:28 Acetaminophen (Tylenol) 650 mg Q4H PRN RECTAL FEVER 02/22/20 14:15 03/23/20 14:14 Chlorhexidine Gluconate (Maira-Hex 2%) 1 applic DAILY@2000 TOPIC 02/23/20 20:00 05/23/20 19:59 02/25/20 20:06 Dextrose (Dextrose 50%) 25 ml Q30M PRN IV Hypoglycemia 02/23/20 09:00 05/23/20 08:59 Dextrose (Dextrose 50%) 50 ml Q30M PRN IV Hypoglycemia 02/23/20 09:00 05/23/20 08:59 Diphenhydramine HCl (Benadryl) 25 mg Q6H PRN ORAL Itching/Pruritis 02/22/20 14:15 03/23/20 14:14 Doxycycline Monohydrate (Doxycycline Monohydrate) 100 mg EVERY 12 HOURS ORAL 02/24/20 09:00 03/02/20 08:59 02/25/20 08:28 Enoxaparin Sodium (Lovenox) 40 mg Q24H SUBQ 02/22/20 17:00 05/22/20 16:59 02/24/20 17:37 Fentanyl Citrate 2500 mcg/Sodium Chloride 250 ml @ 0 mls/hr Q24H IV 02/23/20 10:00 03/01/20 09:59 02/25/20 18:30 Hydroxychloroquine Sulfate (Plaquenil) 200 mg Q12HR ORAL 02/25/20 09:00 02/28/20 21:01 02/25/20 08:28 Insulin Aspart (NovoLOG) Q6HR SUBQ 02/23/20 12:00 05/23/20 11:59 02/25/20 14:37 Norepinephrine Bitartrate 8 mg/ Dextrose 500 ml @ 0 mls/hr Q24H IV 02/23/20 19:01 03/24/20 19:00 02/25/20 17:16 Pantoprazole (Protonix) 40 mg DAILY IVP 02/23/20 09:30 03/24/20 09:29 02/25/20 08:28 Piperacillin Sod/ Tazobactam Sod 3.375 gm/Dextrose 110 ml @ 27.5 mls/hr Q8H IVPB 02/23/20 01:00 03/01/20 00:59 02/25/20 17:11 Vancomycin HCl (Vanco rx to dose) 1 ea DAILY PRN MISC Per rx protocol 02/22/20 14:30 03/23/20 14:29 Vancomycin/Sodium Chloride 275 ml @ 183.333 mls/hr Q8HR IVPB 02/25/20 22:00 03/01/20 21:59 Anselmo Estrada MD Feb 25, 2020 20:24
[2020-02-25] MEDS: Vancomycin 1.25gm/NS Premix IVPB SCH (21:55)
[2020-02-26] VITALS (49 sets, daily range): BP systolic 68–128; BP diastolic 40–85
[2020-02-26] MEDS: NovoLOG Insulin Flexpen SUBQ SCH ×4 (00:22→17:38)
[2020-02-26] MEDS: Piperacillin/Tazobactam 3.375 GM in D5W 110 ML IVPB SCH ×3 (00:36→15:51)
[2020-02-26] MEDS: fentaNYL Citrate 2,500 MCG in NS 200 ML IV SCH (04:37)
[2020-02-26] MEDS: Norepinephrine Bitartrate 8 MG in D5W 500ml 492 ML IV SCH (04:39)
[2020-02-26] MEDS: Vancomycin 1.25gm/NS Premix IVPB SCH ×2 (05:55→15:50)
[2020-02-26 06:24] LABS: HEMATOCRIT 29.3 % (42.0-52.0); HEMOGLOBIN 9.9 G/DL (14.2-18.0); MEAN CORPUSCULAR VOLUME 87 FL (80-99); PLATELET COUNT 108 K/UL (150-450); RED BLOOD COUNT 3.35 M/UL (4.70-6.10); RED CELL DISTRIBUTION WIDTH 13.8 % (11.6-14.8); WHITE BLOOD COUNT 8.7 K/UL (4.8-10.8)
[2020-02-26 06:36] LABS: ANION GAP 9 mmol/L (5-15); BLOOD UREA NITROGEN 10 mg/dL (7-18); CALCIUM 7.5 MG/DL (8.5-10.1); CARBON DIOXIDE 27 MMOL/L (21-32); CHLORIDE 104 MMOL/L (98-107); CREATININE 0.6 MG/DL (0.55-1.30); PHOSPHORUS 1.1 MG/DL (2.5-4.9); SODIUM 139 MMOL/L (136-145)
[2020-02-26 08:02] LABS: POTASSIUM 2.4 MMOL/L (3.5-5.1)
[2020-02-26] MEDS ORDERED: LORazepam Inj 2mg/ml 1ml IV PRN (08:30)
[2020-02-26] MEDS: Pantoprazole Inj IVP SCH (08:47)
[2020-02-26] MEDS: Doxycycline Monohydrate 100mg ORAL SCH ×2 (08:47→20:19)
--- NOTE | 2020-02-26 10:01 | Diagnostic Imaging Report ---
Indication: Reason For Exam: ABN CHST Technique: One view of the chest Comparison: 02/24/2020 Findings: Endotracheal tube demonstrates slightly improved position, now roughly 3 cm above the holly. There is increased atelectasis at the right lung base. Consolidation at the right lung base appears unchanged, but there does appear to be decreased involvement of the upper lobe. There is still extensive consolidation at the left lung base, but aeration appears equivocally slightly improved, and there is less upper lobe involvement. Orogastric tube again demonstrated. Impression: Overall slightly improved bilateral infiltrates, over 2 days Improved endotracheal tube position
[2020-02-26] MEDS ORDERED: Lidocaine 1% Plain 30 ml INJ PRN (10:15)
[2020-02-26] MEDS ORDERED: Heparin1,000 units/500ml Premix(Conc:2 units/ml) IV PRN (10:15)
--- NOTE | 2020-02-26 10:49 | Pulmonology Progress Note ---
Assessment/Plan Assessment/Plan IMPRESSION: 1. Respiratory failure. 2. Bilateral pneumonia. + COVID 19 3. Pulmonary edema. 4. Diabetes mellitus. DISCUSSION: Positive COVID 19 pcr The patient is critically ill at this point in time. Noted Cardiology consultation. Continue broad-spectrum antibiotics. Continue respiratory support; will adjust vent settings I will follow carefully. Andrea Bland M.D. Subjective ROS Limited/Unobtainable: No Interval Events: Remains intubtaed; was intubated on 02/22/20 Constitutional: Reports: fever - less, other - on vent and pressors HEENT: Repors: no symptoms Respiratory: Reports: no symptoms Cardiovascular: Reports: no symptoms Gastrointestinal/Abdominal: Denies: nausea, vomiting, diarrhea Genitourinary: Reports: no symptoms Psychiatric: Reports: other - NA Skin: Denies: rash Endocrine: Reports: no symptoms Musculoskeletal: Reports: other - NA Allergies: Coded Allergies: No Known Allergies (Unverified , 01/19/19) Subjective seen and evaluated Discussed with RN Objective Last 24 Hour Vital Signs Date Time Temp Pulse Resp B/P (MAP) Pulse Ox O2 Delivery O2 Flow Rate FiO2 02/26/20 09:04 129 39 80 02/26/20 07:30 82 21 107/67 (80) 100 02/26/20 07:00 98.0 82 19 92/57 (69) 100 02/26/20 07:00 99/55 02/26/20 07:00 26 Mechanical Ventilator 80 02/26/20 06:55 85 22 80 02/26/20 06:30 75 24 02/26/20 06:30 89 19 92/55 (67) 99 02/26/20 06:00 24 Mechanical Ventilator 80 02/26/20 06:00 108 27 96/50 (65) 97 02/26/20 05:30 117 26 115/67 (83) 95 02/26/20 05:00 116/66 02/26/20 05:00 24 Mechanical Ventilator 80 02/26/20 05:00 115 24 119/63 (81) 94 02/26/20 04:39 114/54 02/26/20 04:37 22 Mechanical Ventilator 80 02/26/20 04:30 87 19 114/64 (81) 100 02/26/20 04:00 Mechanical Ventilator 02/26/20 04:00 80 02/26/20 04:00 99.0 93 19 68/40 (49) 98 02/26/20 04:00 110 02/26/20 03:30 92 20 100/65 (77) 98 02/26/20 03:10 97 20 80 02/26/20 03:00 104/63 02/26/20 03:00 24 Mechanical Ventilator 80 02/26/20 03:00 114 23 128/67 (87) 97 02/26/20 02:30 118 22 83/51 (62) 96 02/26/20 02:00 113 22 111/78 (89) 97 02/26/20 02:00 117/65 02/26/20 02:00 24 Mechanical Ventilator 80 02/26/20 01:52 22 Mechanical Ventilator 80 02/26/20 01:45 112 21 114/69 (84) 97 02/26/20 01:30 116 22 126/67 (86) 95 02/26/20 01:15 112 21 85/54 (64) 98 02/26/20 01:00 120 22 110/65 (80) 98 02/26/20 01:00 85/54 02/26/20 00:57 22 Mechanical Ventilator 80 02/26/20 00:45 122 27 114/70 (85) 97 02/26/20 00:30 119 22 126/61 (82) 100 02/26/20 00:00 116 02/26/20 00:00 80 02/26/20 00:00 105/78 02/26/20 00:00 22 Mechanical Ventilator 80 02/26/20 00:00 Mechanical Ventilator 02/26/20 00:00 98.8 97 19 88/54 (65) 100 02/25/20 23:30 104 19 87/52 (64) 98 02/25/20 23:02 91 22 80 02/25/20 23:00 116 19 94/54 (67) 99 02/25/20 23:00 86/56 02/25/20 23:00 23 Mechanical Ventilator 80 02/25/20 22:52 92/50 02/25/20 22:30 123 119/67 (84) 93 02/25/20 22:00 123 117/64 (81) 96 02/25/20 22:00 94/50 02/25/20 22:00 19 Mechanical Ventilator 80 02/25/20 21:30 124 127/75 (92) 99 02/25/20 21:00 123/71 02/25/20 21:00 21 Mechanical Ventilator 80 02/25/20 21:00 122 134/77 (96) 96 02/25/20 20:45 122 121/54 (76) 96 02/25/20 20:30 117 27 115/70 (85) 92 02/25/20 20:15 95 18 113/71 (85) 97 02/25/20 20:00 99.0 92 18 125/82 (96) 99 02/25/20 20:00 113/71 02/25/20 20:00 22 Mechanical Ventilator 80 02/25/20 20:00 Mechanical Ventilator 02/25/20 19:45 94 13 114/67 (83) 98 02/25/20 19:30 97 14 111/67 (82) 98 02/25/20 19:10 89 23 80 02/25/20 19:00 104 14 102/62 (75) 96 02/25/20 18:30 125 19 114/63 (80) 94 02/25/20 18:30 Mechanical Ventilator 02/25/20 18:00 128 21 111/63 (79) 97 02/25/20 17:30 118 22 122/68 (86) 97 02/25/20 17:20 85 22 80 02/25/20 17:16 111/61 02/25/20 17:11 Mechanical Ventilator 02/25/20 17:00 78 19 111/61 (78) 99 02/25/20 16:30 84 19 94/54 (67) 99 02/25/20 16:00 98.3 85 19 93/56 (68) 99 02/25/20 16:00 Mechanical Ventilator 02/25/20 16:00 83 02/25/20 16:00 Mechanical Ventilator 02/25/20 16:00 80 02/25/20 15:00 Mechanical Ventilator 02/25/20 15:00 85 19 95/57 (70) 96 02/25/20 14:30 96 19 95/56 (69) 99 02/25/20 14:00 88 19 96/53 (67) 99 02/25/20 14:00 Mechanical Ventilator 02/25/20 13:30 90 19 98/61 (73) 99 02/25/20 13:05 87 24 80 02/25/20 13:00 Mechanical Ventilator 02/25/20 13:00 99 21 104/65 (78) 99 02/25/20 12:30 89 21 100/64 (76) 99 02/25/20 12:12 110/56 02/25/20 12:12 Mechanical Ventilator 02/25/20 12:00 Mechanical Ventilator 02/25/20 12:00 98 18 97/57 (70) 99 02/25/20 12:00 80 02/25/20 12:00 72 02/25/20 11:30 92 18 96/61 (73) 98 02/25/20 11:05 105 24 80 02/25/20 11:00 Mechanical Ventilator 02/25/20 11:00 107 101/64 (76) 98 Intake and Output 02/25/20 02/26/20 19:00 07:00 Intake Total 1344.0 ml 1970 ml Output Total 465 ml 850 ml Balance 879.0 ml 1120 ml Free Water 90 ml IV Total 879.0 ml 1320 ml Tube Feeding 435 ml 560 ml Other 30 ml Output Urine Total 465 ml 850 ml General Appearance: other - sedated, on vent and pressors HEENT: normocephalic, atraumatic, anicteric, no JVD, other - oral - intubated Respiratory/Chest: chest wall non-tender, decreased breath sounds Cardiovascular: normal peripheral pulses Abdomen: normal bowel sounds, soft, non tender, non distended Genitourinary: other - + rush - urine clear Extremities: no cyanosis Skin: no rash Neurologic/Psychiatric: other - sedated, weak, on vent Lymphatic: no neck adenopathy Musculoskeletal: no effusion Laboratory Tests 02/25/20 15:10: Lactic Acid Level 2.30H 02/25/20 15:15: Vancomycin Level Trough 7.9 02/26/20 03:58: Lactic Acid Level 3.00H, White Blood Count 8.7, Red Blood Count 3.35L, Hemoglobin 9.9L, Hematocrit 29.3L, Mean Corpuscular Volume 87, Mean Corpuscular Hemoglobin 29.4, Mean Corpuscular Hemoglobin Concent 33.7, Red Cell Distribution Width 13.8, Platelet Count 108L, Mean Platelet Volume 6.5, Neutrophils (%) (Auto) , Lymphocytes (%) (Auto) , Monocytes (%) (Auto) , Eosinophils (%) (Auto) , Basophils (%) (Auto) , Differential Total Cells Counted 100, Neutrophils % (Manual) 97H, Lymphocytes % (Manual) 2L, Monocytes % (Manual) 1, Eosinophils % (Manual) 0, Basophils % (Manual) 0, Band Neutrophils 0 , Platelet Estimate DecreasedL, Platelet Morphology Normal, Sodium Level 139, Potassium Level 2.4*L, Chloride Level 104, Carbon Dioxide Level 27, Anion Gap 9 , Blood Urea Nitrogen 10, Creatinine 0.6, Estimat Glomerular Filtration Rate > 60, Glucose Level 195H, Calcium Level 7.5L, Phosphorus Level 1.1L, Magnesium Level 1.9 02/26/20 07:41: Arterial Blood pH 7.369, Arterial Blood Partial Pressure CO2 46.5H, Arterial Blood Partial Pressure O2 59.0L, Arterial Blood HCO3 26.2H, Arterial Blood Oxygen Saturation 91.1L, Arterial Blood Base Excess 0.6, Kuldeep Test Positive Current Medications Medications (Trade) Dose Ordered Sig/Cirilo Route PRN Reason Start Time Stop Time Status Last Admin Dose Admin Acetaminophen (Tylenol) 650 mg Q4H PRN ORAL Fever 02/22/20 14:15 03/23/20 14:14 Acetaminophen (Tylenol) 650 mg Q4H PRN ORAL Mild Pain (Pain Scale 1-3) 02/22/20 14:15 03/23/20 14:14 Acetaminophen (Tylenol) 650 mg Q4H PRN RECTAL Mild Pain (Pain Scale 1-3) 02/22/20 14:15 03/23/20 14:14 02/22/20 21:28 Acetaminophen (Tylenol) 650 mg Q4H PRN RECTAL FEVER 02/22/20 14:15 03/23/20 14:14 Chlorhexidine Gluconate (Maira-Hex 2%) 1 applic DAILY@2000 TOPIC 02/23/20 20:00 05/23/20 19:59 02/25/20 20:06 Dextrose (Dextrose 50%) 25 ml Q30M PRN IV Hypoglycemia 02/23/20 09:00 05/23/20 08:59 Dextrose (Dextrose 50%) 50 ml Q30M PRN IV Hypoglycemia 02/23/20 09:00 05/23/20 08:59 Diphenhydramine HCl (Benadryl) 25 mg Q6H PRN ORAL Itching/Pruritis 02/22/20 14:15 03/23/20 14:14 02/26/20 01:34 Doxycycline Monohydrate (Doxycycline Monohydrate) 100 mg EVERY 12 HOURS ORAL 02/24/20 09:00 03/02/20 08:59 02/26/20 08:47 Enoxaparin Sodium (Lovenox) 40 mg Q24H SUBQ 02/22/20 17:00 05/22/20 16:59 02/24/20 17:37 Fentanyl Citrate 2500 mcg/Sodium Chloride 250 ml @ 0 mls/hr Q24H IV 02/23/20 10:00 03/01/20 09:59 02/26/20 04:37 Heparin Sodium/ Sodium Chloride (Heparin 1000 units/500ml Premix) 1,000 unit ONCE PRN IV PICC LINE PLACEMENT 02/26/20 10:15 02/28/20 10:14 Hydroxychloroquine Sulfate (Plaquenil) 200 mg Q12HR ORAL 02/25/20 09:00 02/28/20 21:01 02/26/20 08:48 Insulin Aspart (NovoLOG) Q6HR SUBQ 02/23/20 12:00 05/23/20 11:59 02/26/20 05:57 Lidocaine HCl (Xylocaine 1% 30ml) 30 ml ONCE PRN INJ PICC LINE PLACEMENT 02/26/20 10:15 02/28/20 10:14 Lorazepam (Ativan 2mg/ml 1ml) 1 mg Q6H PRN IV For Anxiety 02/26/20 08:30 03/04/20 08:29 Norepinephrine Bitartrate 8 mg/ Dextrose 500 ml @ 0 mls/hr Q24H IV 02/23/20 19:01 03/24/20 19:00 02/26/20 04:39 Pantoprazole (Protonix) 40 mg DAILY IVP 02/23/20 09:30 03/24/20 09:29 02/26/20 08:47 Piperacillin Sod/ Tazobactam Sod 3.375 gm/Dextrose 110 ml @ 27.5 mls/hr Q8H IVPB 02/23/20 01:00 03/01/20 00:59 02/26/20 08:46 Potassium Chloride 100 ml @ 50 mls/hr ONCE ONCE IVPB 02/26/20 09:00 02/26/20 10:59 02/26/20 08:47 Vancomycin HCl (Vanco rx to dose) 1 ea DAILY PRN MISC Per rx protocol 02/22/20 14:30 03/23/20 14:29 Vancomycin/Sodium Chloride 275 ml @ 183.333 mls/hr Q8HR IVPB 02/25/20 22:00 03/01/20 21:59 02/26/20 05:55 Andrea Bland MD February 26, 2020 10:49
--- NOTE | 2020-02-26 11:18 | General Progress Note ---
Assessment/Plan Assessment/Plan: 74 y/o M from [place], PMH HTN, DMT2, dementia, Alzheimers dx, h/o CVA/TIA, h/o DVT, schizophrenia who presents for Fever. In the ED, pt found to be septic, Tm 100.9 , RR22, WBC 7.3, Lactic acid 2.8, and ABG revealed acute hypoxic respiratory failure. Pt was intubated and will be admitted to ICU for acute hypoxic respiratory failure and pending COVID r/o. #Septic shock 2/2 #Acute Hypoxic Respiratory Failure #HCAP #COVID positive #Lactic Acidosis -Appreciate ICU level care -pt intubated in ED, 02/21 -vent management per CCU team/Pulm, wean as tolerated -Cont. COVID isolation protocol -COVID PCR positive -elevated d-dimer and BNP likely 2/2 above -cont. pressure support, wean as tolerated -cont. fentanyl for sedation -add versed -cont. vanc/zosyn -BCx diptheroids -echo ordered, on hold due to COVID -d/w Pulm, Dr. Bland -ID: plaquenil (end date 02/27), vanc, zosyn -pt lost central line, pt with hypotension, no family available, pt unable to consent, given code status and medical management central line placement is medically necessary. #Hypernatremia - improved -likely 2/2 dehydration -careful w/IVF given BNP elevated -daily BMPs -nephro consulted, recs appreciated #Type 2 DM -holding home metformin -ISS sensitive, accuchecks q6h #HTN -holding home bp meds given septic shock -holding Lasix 20 mg q daily, benazepril 5 mg q daily #Alzheimer disease #Dementia #Schizophrenia #Bipolar dx -reviewed MAR from [place], no home meds for schizophrenia/bipolar dx noted -holding home aricept given clinical picture DVT PPx: lovenox Time spent: 39 mins, 21 mins spent on coordination of care, d/w [employer], ID, Pulm. Time of note may not reflect time of encounter. Subjective Allergies: Coded Allergies: No Known Allergies (Unverified , 01/19/19) Subjective F/u for acute respiratory failure, COVID+, s/p intubation on 02/21. Pt remains on pressure support. Afebrile. pt lost central line, pt with hypotension, no family available, pt unable to consent, given code status and medical management central line placement is medically necessary. Patient remains intubated, unable to obtain ROS due to clinical picture. Objective Last 24 Hour Vital Signs Date Time Temp Pulse Resp B/P (MAP) Pulse Ox O2 Delivery O2 Flow Rate FiO2 02/26/20 09:04 129 39 80 02/26/20 07:30 82 21 107/67 (80) 100 02/26/20 07:00 98.0 82 19 92/57 (69) 100 02/26/20 07:00 99/55 02/26/20 07:00 26 Mechanical Ventilator 80 02/26/20 06:55 85 22 80 02/26/20 06:30 75 24 02/26/20 06:30 89 19 92/55 (67) 99 02/26/20 06:00 24 Mechanical Ventilator 80 02/26/20 06:00 108 27 96/50 (65) 97 02/26/20 05:30 117 26 115/67 (83) 95 02/26/20 05:00 116/66 02/26/20 05:00 24 Mechanical Ventilator 80 02/26/20 05:00 115 24 119/63 (81) 94 02/26/20 04:39 114/54 02/26/20 04:37 22 Mechanical Ventilator 80 02/26/20 04:30 87 19 114/64 (81) 100 02/26/20 04:00 Mechanical Ventilator 02/26/20 04:00 80 02/26/20 04:00 99.0 93 19 68/40 (49) 98 02/26/20 04:00 110 02/26/20 03:30 92 20 100/65 (77) 98 02/26/20 03:10 97 20 80 02/26/20 03:00 104/63 02/26/20 03:00 24 Mechanical Ventilator 80 02/26/20 03:00 114 23 128/67 (87) 97 02/26/20 02:30 118 22 83/51 (62) 96 02/26/20 02:00 113 22 111/78 (89) 97 02/26/20 02:00 117/65 02/26/20 02:00 24 Mechanical Ventilator 80 02/26/20 01:52 22 Mechanical Ventilator 80 02/26/20 01:45 112 21 114/69 (84) 97 02/26/20 01:30 116 22 126/67 (86) 95 02/26/20 01:15 112 21 85/54 (64) 98 02/26/20 01:00 120 22 110/65 (80) 98 02/26/20 01:00 85/54 02/26/20 00:57 22 Mechanical Ventilator 80 02/26/20 00:45 122 27 114/70 (85) 97 02/26/20 00:30 119 22 126/61 (82) 100 02/26/20 00:00 116 02/26/20 00:00 80 02/26/20 00:00 105/78 02/26/20 00:00 22 Mechanical Ventilator 80 02/26/20 00:00 Mechanical Ventilator 02/26/20 00:00 98.8 97 19 88/54 (65) 100 02/25/20 23:30 104 19 87/52 (64) 98 02/25/20 23:02 91 22 80 02/25/20 23:00 116 19 94/54 (67) 99 02/25/20 23:00 86/56 02/25/20 23:00 23 Mechanical Ventilator 80 02/25/20 22:52 92/50 02/25/20 22:30 123 119/67 (84) 93 02/25/20 22:00 123 117/64 (81) 96 02/25/20 22:00 94/50 02/25/20 22:00 19 Mechanical Ventilator 80 02/25/20 21:30 124 127/75 (92) 99 02/25/20 21:00 123/71 02/25/20 21:00 21 Mechanical Ventilator 80 02/25/20 21:00 122 134/77 (96) 96 02/25/20 20:45 122 121/54 (76) 96 02/25/20 20:30 117 27 115/70 (85) 92 02/25/20 20:15 95 18 113/71 (85) 97 02/25/20 20:00 99.0 92 18 125/82 (96) 99 02/25/20 20:00 113/71 02/25/20 20:00 22 Mechanical Ventilator 80 02/25/20 20:00 Mechanical Ventilator 02/25/20 19:45 94 13 114/67 (83) 98 02/25/20 19:30 97 14 111/67 (82) 98 02/25/20 19:10 89 23 80 02/25/20 19:00 104 14 102/62 (75) 96 02/25/20 18:30 125 19 114/63 (80) 94 02/25/20 18:30 Mechanical Ventilator 02/25/20 18:00 128 21 111/63 (79) 97 02/25/20 17:30 118 22 122/68 (86) 97 02/25/20 17:20 85 22 80 02/25/20 17:16 111/61 02/25/20 17:11 Mechanical Ventilator 02/25/20 17:00 78 19 111/61 (78) 99 02/25/20 16:30 84 19 94/54 (67) 99 02/25/20 16:00 98.3 85 19 93/56 (68) 99 02/25/20 16:00 Mechanical Ventilator 02/25/20 16:00 83 02/25/20 16:00 Mechanical Ventilator 02/25/20 16:00 80 02/25/20 15:00 Mechanical Ventilator 02/25/20 15:00 85 19 95/57 (70) 96 02/25/20 14:30 96 19 95/56 (69) 99 02/25/20 14:00 88 19 96/53 (67) 99 02/25/20 14:00 Mechanical Ventilator 02/25/20 13:30 90 19 98/61 (73) 99 02/25/20 13:05 87 24 80 02/25/20 13:00 Mechanical Ventilator 02/25/20 13:00 99 21 104/65 (78) 99 02/25/20 12:30 89 21 100/64 (76) 99 02/25/20 12:12 110/56 02/25/20 12:12 Mechanical Ventilator 02/25/20 12:00 Mechanical Ventilator 02/25/20 12:00 98 18 97/57 (70) 99 02/25/20 12:00 80 02/25/20 12:00 72 02/25/20 11:30 92 18 96/61 (73) 98 Intake and Output 02/25/20 02/26/20 19:00 07:00 Intake Total 1344.0 ml 1970 ml Output Total 465 ml 850 ml Balance 879.0 ml 1120 ml Free Water 90 ml IV Total 879.0 ml 1320 ml Tube Feeding 435 ml 560 ml Other 30 ml Output Urine Total 465 ml 850 ml Laboratory Tests 02/25/20 15:10: Lactic Acid Level 2.30H 02/25/20 15:15: Vancomycin Level Trough 7.9 02/26/20 03:58: Lactic Acid Level 3.00H, White Blood Count 8.7, Red Blood Count 3.35L, Hemoglobin 9.9L, Hematocrit 29.3L, Mean Corpuscular Volume 87, Mean Corpuscular Hemoglobin 29.4, Mean Corpuscular Hemoglobin Concent 33.7, Red Cell Distribution Width 13.8, Platelet Count 108L, Mean Platelet Volume 6.5, Neutrophils (%) (Auto) , Lymphocytes (%) (Auto) , Monocytes (%) (Auto) , Eosinophils (%) (Auto) , Basophils (%) (Auto) , Differential Total Cells Counted 100, Neutrophils % (Manual) 97H, Lymphocytes % (Manual) 2L, Monocytes % (Manual) 1, Eosinophils % (Manual) 0, Basophils % (Manual) 0, Band Neutrophils 0 , Platelet Estimate DecreasedL, Platelet Morphology Normal, Sodium Level 139, Potassium Level 2.4*L, Chloride Level 104, Carbon Dioxide Level 27, Anion Gap 9 , Blood Urea Nitrogen 10, Creatinine 0.6, Estimat Glomerular Filtration Rate > 60, Glucose Level 195H, Calcium Level 7.5L, Phosphorus Level 1.1L, Magnesium Level 1.9 02/26/20 07:41: Arterial Blood pH 7.369, Arterial Blood Partial Pressure CO2 46.5H, Arterial Blood Partial Pressure O2 59.0L, Arterial Blood HCO3 26.2H, Arterial Blood Oxygen Saturation 91.1L, Arterial Blood Base Excess 0.6, Kuldeep Test Positive Height (Feet): 5 Height (Inches): 5.00 Weight (Pounds): 122 Objective General: intubated, sedated HEENT: NCAT, ETT in place, OG tube in place CV: Tachycardic on tele Pulm: equal rise in lungs b/l GI: abd appears non-distended Ext: No lower extremity edema bilaterally Gosia Nunez M.D. February 26, 2020 11:18
--- NOTE | 2020-02-26 11:30 | Nephrology Progress Note ---
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 # h/o DVT # schizophrenia, bipolar - replete lytes, phos and K - continue icu care - monitor off IVF - replete lytes prn - vaso pressor per pulmonary - antibiotics per ICU - trend lactic acid - follow cx - vent management per pulmonary - monitor lytes - BG control - hold antihypertensive Subjective ROS Limited/Unobtainable: Yes Subjective lytes reviewed remains hypotensive sodium 134 remains intubated Objective Objective Last 24 Hour Vital Signs Date Time Temp Pulse Resp B/P (MAP) Pulse Ox O2 Delivery O2 Flow Rate FiO2 02/26/20 09:04 129 39 80 02/26/20 07:30 82 21 107/67 (80) 100 02/26/20 07:00 98.0 82 19 92/57 (69) 100 02/26/20 07:00 99/55 02/26/20 07:00 26 Mechanical Ventilator 80 02/26/20 06:55 85 22 80 02/26/20 06:30 75 24 02/26/20 06:30 89 19 92/55 (67) 99 02/26/20 06:00 24 Mechanical Ventilator 80 02/26/20 06:00 108 27 96/50 (65) 97 02/26/20 05:30 117 26 115/67 (83) 95 02/26/20 05:00 116/66 02/26/20 05:00 24 Mechanical Ventilator 80 02/26/20 05:00 115 24 119/63 (81) 94 02/26/20 04:39 114/54 02/26/20 04:37 22 Mechanical Ventilator 80 02/26/20 04:30 87 19 114/64 (81) 100 02/26/20 04:00 Mechanical Ventilator 02/26/20 04:00 80 02/26/20 04:00 99.0 93 19 68/40 (49) 98 02/26/20 04:00 110 02/26/20 03:30 92 20 100/65 (77) 98 02/26/20 03:10 97 20 80 02/26/20 03:00 104/63 02/26/20 03:00 24 Mechanical Ventilator 80 02/26/20 03:00 114 23 128/67 (87) 97 02/26/20 02:30 118 22 83/51 (62) 96 02/26/20 02:00 113 22 111/78 (89) 97 02/26/20 02:00 117/65 02/26/20 02:00 24 Mechanical Ventilator 80 02/26/20 01:52 22 Mechanical Ventilator 80 02/26/20 01:45 112 21 114/69 (84) 97 02/26/20 01:30 116 22 126/67 (86) 95 02/26/20 01:15 112 21 85/54 (64) 98 02/26/20 01:00 120 22 110/65 (80) 98 02/26/20 01:00 85/54 02/26/20 00:57 22 Mechanical Ventilator 80 02/26/20 00:45 122 27 114/70 (85) 97 02/26/20 00:30 119 22 126/61 (82) 100 02/26/20 00:00 116 02/26/20 00:00 80 02/26/20 00:00 105/78 02/26/20 00:00 22 Mechanical Ventilator 80 02/26/20 00:00 Mechanical Ventilator 02/26/20 00:00 98.8 97 19 88/54 (65) 100 02/25/20 23:30 104 19 87/52 (64) 98 02/25/20 23:02 91 22 80 02/25/20 23:00 116 19 94/54 (67) 99 02/25/20 23:00 86/56 02/25/20 23:00 23 Mechanical Ventilator 80 02/25/20 22:52 92/50 02/25/20 22:30 123 119/67 (84) 93 02/25/20 22:00 123 117/64 (81) 96 02/25/20 22:00 94/50 02/25/20 22:00 19 Mechanical Ventilator 80 02/25/20 21:30 124 127/75 (92) 99 02/25/20 21:00 123/71 02/25/20 21:00 21 Mechanical Ventilator 80 02/25/20 21:00 122 134/77 (96) 96 02/25/20 20:45 122 121/54 (76) 96 02/25/20 20:30 117 27 115/70 (85) 92 02/25/20 20:15 95 18 113/71 (85) 97 02/25/20 20:00 99.0 92 18 125/82 (96) 99 02/25/20 20:00 113/71 02/25/20 20:00 22 Mechanical Ventilator 80 02/25/20 20:00 Mechanical Ventilator 02/25/20 19:45 94 13 114/67 (83) 98 02/25/20 19:30 97 14 111/67 (82) 98 02/25/20 19:10 89 23 80 02/25/20 19:00 104 14 102/62 (75) 96 02/25/20 18:30 125 19 114/63 (80) 94 02/25/20 18:30 Mechanical Ventilator 02/25/20 18:00 128 21 111/63 (79) 97 02/25/20 17:30 118 22 122/68 (86) 97 02/25/20 17:20 85 22 80 02/25/20 17:16 111/61 02/25/20 17:11 Mechanical Ventilator 02/25/20 17:00 78 19 111/61 (78) 99 02/25/20 16:30 84 19 94/54 (67) 99 02/25/20 16:00 98.3 85 19 93/56 (68) 99 02/25/20 16:00 Mechanical Ventilator 02/25/20 16:00 83 02/25/20 16:00 Mechanical Ventilator 02/25/20 16:00 80 02/25/20 15:00 Mechanical Ventilator 02/25/20 15:00 85 19 95/57 (70) 96 02/25/20 14:30 96 19 95/56 (69) 99 02/25/20 14:00 88 19 96/53 (67) 99 02/25/20 14:00 Mechanical Ventilator 02/25/20 13:30 90 19 98/61 (73) 99 02/25/20 13:05 87 24 80 02/25/20 13:00 Mechanical Ventilator 02/25/20 13:00 99 21 104/65 (78) 99 02/25/20 12:30 89 21 100/64 (76) 99 02/25/20 12:12 110/56 02/25/20 12:12 Mechanical Ventilator 02/25/20 12:00 Mechanical Ventilator 02/25/20 12:00 98 18 97/57 (70) 99 02/25/20 12:00 80 02/25/20 12:00 72 02/25/20 11:30 92 18 96/61 (73) 98 Intake and Output 02/25/20 02/26/20 19:00 07:00 Intake Total 1344.0 ml 1970 ml Output Total 465 ml 850 ml Balance 879.0 ml 1120 ml Free Water 90 ml IV Total 879.0 ml 1320 ml Tube Feeding 435 ml 560 ml Other 30 ml Output Urine Total 465 ml 850 ml Laboratory Tests 02/25/20 15:10: Lactic Acid Level 2.30H 02/25/20 15:15: Vancomycin Level Trough 7.9 02/26/20 03:58: Lactic Acid Level 3.00H, White Blood Count 8.7, Red Blood Count 3.35L, Hemoglobin 9.9L, Hematocrit 29.3L, Mean Corpuscular Volume 87, Mean Corpuscular Hemoglobin 29.4, Mean Corpuscular Hemoglobin Concent 33.7, Red Cell Distribution Width 13.8, Platelet Count 108L, Mean Platelet Volume 6.5, Neutrophils (%) (Auto) , Lymphocytes (%) (Auto) , Monocytes (%) (Auto) , Eosinophils (%) (Auto) , Basophils (%) (Auto) , Differential Total Cells Counted 100, Neutrophils % (Manual) 97H, Lymphocytes % (Manual) 2L, Monocytes % (Manual) 1, Eosinophils % (Manual) 0, Basophils % (Manual) 0, Band Neutrophils 0 , Platelet Estimate DecreasedL, Platelet Morphology Normal, Sodium Level 139, Potassium Level 2.4*L, Chloride Level 104, Carbon Dioxide Level 27, Anion Gap 9 , Blood Urea Nitrogen 10, Creatinine 0.6, Estimat Glomerular Filtration Rate > 60, Glucose Level 195H, Calcium Level 7.5L, Phosphorus Level 1.1L, Magnesium Level 1.9 02/26/20 07:41: Arterial Blood pH 7.369, Arterial Blood Partial Pressure CO2 46.5H, Arterial Blood Partial Pressure O2 59.0L, Arterial Blood HCO3 26.2H, Arterial Blood Oxygen Saturation 91.1L, Arterial Blood Base Excess 0.6, Kuldeep Test Positive Height (Feet): 5 Height (Inches): 5.00 Weight (Pounds): 122 Objective General Appearance: other - intubated Lines, tubes and drains: peripheral HEENT: normocephalic, atraumatic, other - dry mucous membranes Neck: non-tender, normal alignment Respiratory/Chest: rhonchi - bilaterally Cardiovascular/Chest: normal peripheral pulses, normal rate Abdomen: soft, hypoactive bowel sounds Extremities: normal range of motion, no calf tenderness, non-pitting, no edema Skin Exam: normal pigmentation, warm/dry Dwayne Salas M.D. February 26, 2020 11:30
[2020-02-26] MEDS ORDERED: Potassium Phosphate 15mm/250ml 250 ML IVPB SCH (12:30)
--- NOTE | 2020-02-26 13:03 | Cardiac Electrophysiology PN ---
Assessment/Plan Assessment/Plan 1. Respiratory failure likely due to COVID pneumonia However, cannot rule out underlying CHF as BNP is more than 2000. Echo EF 50%. His white count however is only 7.2 with lymphopenia On the Vent 80% Fio2, PEEP 5 2. Septic shock likely due to pneumonia and dehydration. On Levo 2 mcg and Abx 3. Hypernatremia, resolved with IV fluids. 4. Dehydration. Subjective Subjective On Levo 2 mcg on the vent with Fio2 80% in ICU. EF 50%. Covid PCR is positive Objective Last 24 Hour Vital Signs Date Time Temp Pulse Resp B/P (MAP) Pulse Ox O2 Delivery O2 Flow Rate FiO2 02/26/20 09:04 129 39 80 02/26/20 08:00 80 02/26/20 08:00 Mechanical Ventilator 02/26/20 07:30 82 21 107/67 (80) 100 02/26/20 07:00 98.0 82 19 92/57 (69) 100 02/26/20 07:00 99/55 02/26/20 07:00 26 Mechanical Ventilator 80 02/26/20 06:55 85 22 80 02/26/20 06:30 75 24 02/26/20 06:30 89 19 92/55 (67) 99 02/26/20 06:00 24 Mechanical Ventilator 80 02/26/20 06:00 108 27 96/50 (65) 97 02/26/20 05:30 117 26 115/67 (83) 95 02/26/20 05:00 116/66 02/26/20 05:00 24 Mechanical Ventilator 80 02/26/20 05:00 115 24 119/63 (81) 94 02/26/20 04:39 114/54 02/26/20 04:37 22 Mechanical Ventilator 80 02/26/20 04:30 87 19 114/64 (81) 100 02/26/20 04:00 Mechanical Ventilator 02/26/20 04:00 80 02/26/20 04:00 99.0 93 19 68/40 (49) 98 02/26/20 04:00 110 02/26/20 03:30 92 20 100/65 (77) 98 02/26/20 03:10 97 20 80 02/26/20 03:00 104/63 02/26/20 03:00 24 Mechanical Ventilator 80 02/26/20 03:00 114 23 128/67 (87) 97 02/26/20 02:30 118 22 83/51 (62) 96 02/26/20 02:00 113 22 111/78 (89) 97 02/26/20 02:00 117/65 02/26/20 02:00 24 Mechanical Ventilator 80 02/26/20 01:52 22 Mechanical Ventilator 80 02/26/20 01:45 112 21 114/69 (84) 97 02/26/20 01:30 116 22 126/67 (86) 95 02/26/20 01:15 112 21 85/54 (64) 98 02/26/20 01:00 120 22 110/65 (80) 98 02/26/20 01:00 85/54 02/26/20 00:57 22 Mechanical Ventilator 80 02/26/20 00:45 122 27 114/70 (85) 97 02/26/20 00:30 119 22 126/61 (82) 100 02/26/20 00:00 116 02/26/20 00:00 80 02/26/20 00:00 105/78 02/26/20 00:00 22 Mechanical Ventilator 80 02/26/20 00:00 Mechanical Ventilator 02/26/20 00:00 98.8 97 19 88/54 (65) 100 02/25/20 23:30 104 19 87/52 (64) 98 02/25/20 23:02 91 22 80 02/25/20 23:00 116 19 94/54 (67) 99 02/25/20 23:00 86/56 02/25/20 23:00 23 Mechanical Ventilator 80 02/25/20 22:52 92/50 02/25/20 22:30 123 119/67 (84) 93 02/25/20 22:00 123 117/64 (81) 96 02/25/20 22:00 94/50 02/25/20 22:00 19 Mechanical Ventilator 80 02/25/20 21:30 124 127/75 (92) 99 02/25/20 21:00 123/71 02/25/20 21:00 21 Mechanical Ventilator 80 02/25/20 21:00 122 134/77 (96) 96 02/25/20 20:45 122 121/54 (76) 96 02/25/20 20:30 117 27 115/70 (85) 92 02/25/20 20:15 95 18 113/71 (85) 97 02/25/20 20:00 99.0 92 18 125/82 (96) 99 02/25/20 20:00 113/71 02/25/20 20:00 22 Mechanical Ventilator 80 02/25/20 20:00 Mechanical Ventilator 02/25/20 19:45 94 13 114/67 (83) 98 02/25/20 19:30 97 14 111/67 (82) 98 02/25/20 19:10 89 23 80 02/25/20 19:00 104 14 102/62 (75) 96 02/25/20 18:30 125 19 114/63 (80) 94 02/25/20 18:30 Mechanical Ventilator 02/25/20 18:00 128 21 111/63 (79) 97 02/25/20 17:30 118 22 122/68 (86) 97 02/25/20 17:20 85 22 80 02/25/20 17:16 111/61 02/25/20 17:11 Mechanical Ventilator 02/25/20 17:00 78 19 111/61 (78) 99 02/25/20 16:30 84 19 94/54 (67) 99 02/25/20 16:00 98.3 85 19 93/56 (68) 99 02/25/20 16:00 Mechanical Ventilator 02/25/20 16:00 83 02/25/20 16:00 Mechanical Ventilator 02/25/20 16:00 80 02/25/20 15:00 Mechanical Ventilator 02/25/20 15:00 85 19 95/57 (70) 96 02/25/20 14:30 96 19 95/56 (69) 99 02/25/20 14:00 88 19 96/53 (67) 99 02/25/20 14:00 Mechanical Ventilator 02/25/20 13:30 90 19 98/61 (73) 99 02/25/20 13:05 87 24 80 Intake and Output 02/25/20 02/26/20 19:00 07:00 Intake Total 1344.0 ml 1970 ml Output Total 465 ml 850 ml Balance 879.0 ml 1120 ml Free Water 90 ml IV Total 879.0 ml 1320 ml Tube Feeding 435 ml 560 ml Other 30 ml Output Urine Total 465 ml 850 ml Laboratory Tests Test 02/25/20 15:10 02/25/20 15:15 02/26/20 03:58 02/26/20 07:41 Lactic Acid Level 2.30 mmol/L (0.4-2.0) H 3.00 mmol/L (0.4-2.0) H Vancomycin Level Trough 7.9 ug/mL (5.0-12.0) White Blood Count 8.7 K/UL (4.8-10.8) Red Blood Count 3.35 M/UL (4.70-6.10) L Hemoglobin 9.9 G/DL (14.2-18.0) L Hematocrit 29.3 % (42.0-52.0) L Mean Corpuscular Volume 87 FL (80-99) Mean Corpuscular Hemoglobin 29.4 PG (27.0-31.0) Mean Corpuscular Hemoglobin Concent 33.7 G/DL (32.0-36.0) Red Cell Distribution Width 13.8 % (11.6-14.8) Platelet Count 108 K/UL (150-450) L Mean Platelet Volume 6.5 FL (6.5-10.1) Neutrophils (%) (Auto) % (45.0-75.0) Lymphocytes (%) (Auto) % (20.0-45.0) Monocytes (%) (Auto) % (1.0-10.0) Eosinophils (%) (Auto) % (0.0-3.0) Basophils (%) (Auto) % (0.0-2.0) Differential Total Cells Counted 100 Neutrophils % (Manual) 97 % (45-75) H Lymphocytes % (Manual) 2 % (20-45) L Monocytes % (Manual) 1 % (1-10) Eosinophils % (Manual) 0 % (0-3) Basophils % (Manual) 0 % (0-2) Band Neutrophils 0 % (0-8) Platelet Estimate Decreased L Platelet Morphology Normal Sodium Level 139 MMOL/L (136-145) Potassium Level 2.4 MMOL/L (3.5-5.1) *L Chloride Level 104 MMOL/L (98-107) Carbon Dioxide Level 27 MMOL/L (21-32) Anion Gap 9 mmol/L (5-15) Blood Urea Nitrogen 10 mg/dL (7-18) Creatinine 0.6 MG/DL (0.55-1.30) Estimat Glomerular Filtration Rate > 60 mL/min (>60) Glucose Level 195 MG/DL (74-106) H Calcium Level 7.5 MG/DL (8.5-10.1) L Phosphorus Level 1.1 MG/DL (2.5-4.9) L Magnesium Level 1.9 MG/DL (1.8-2.4) Arterial Blood pH 7.369 (7.350-7.450) Arterial Blood Partial Pressure CO2 46.5 mmHg (35.0-45.0) H Arterial Blood Partial Pressure O2 59.0 mmHg (75.0-100.0) L Arterial Blood HCO3 26.2 mmol/L (22.0-26.0) H Arterial Blood Oxygen Saturation 91.1 % (95-100) L Arterial Blood Base Excess 0.6 (-2-2) Kuldeep Test Positive Objective HEAD AND NECK: No JVD. He is orally intubated. LUNGS: Decreased breath sounds and coarse rhonchi. CARDIOVASCULAR: Regular S1 and S2 with no gallop. ABDOMEN: Soft. EXTREMITIES: No pitting edema. Deric Garcia MD February 26, 2020 13:03
[2020-02-26] MEDS: Enoxaparin 40mg Inj SUBQ SCH (15:50)
[2020-02-26] MEDS: Potassium Phosphate 15mm/250ml 250 ML IVPB SCH ×2 (16:00→20:20)
--- NOTE | 2020-02-26 16:14 | Brief Operative Note ---
Immediate Post Operative Note Operative Note Pre-op Diagnosis: needs central IV access Procedure: R IJV central line Post-op Diagnosis: same as pre-op Surgeon: Jake Castro Specimen: none Complications: none Fluids: none Implant(s) used?: No Dario Castro MD February 26, 2020 16:14
--- NOTE | 2020-02-26 16:22 | Diagnostic Imaging Report ---
Indication: Central IV access Technique: Procedure performed at bedside. Procedural timeout performed. Ultrasound confirms patent compressible right internal jugular vein. Total sterile technique, including sterile probe cover and sterile gel, sterile gloves, hand hygiene, hat, mask, sterile gown, large sterile drape, and preparation with 2% chlorhexidine utilized.Local anesthesia with 1% lidocaine. Under real-time ultrasound guidance, puncture right internal jugular vein using 21-gauge micropuncture needle, passage 0.018 guidewire, insertion 4 Anguillan introducer, passage 0.035 guidewire, over which was passed serial dilators and then a right transjugular central venous catheter. Completion chest radiograph obtained, demonstrating catheter tip position at the mid superior vena cava. Impression: Successful placement of right jugular central venous catheter, as described.
[2020-02-26] MEDS ORDERED: Dyna-Hex 2% Top Sol 2oz TOPIC SCH (20:00)
[2020-02-26] MEDS: Dyna-Hex 2% Top Sol 2oz TOPIC SCH (20:19)
[2020-02-27] VITALS (51 sets, daily range): BP systolic 66–111; BP diastolic 37–68
[2020-02-27] MEDS: Piperacillin/Tazobactam 3.375 GM in D5W 110 ML IVPB SCH ×3 (00:17→16:41)
[2020-02-27] MEDS: Vancomycin 1.25gm/NS Premix IVPB SCH ×2 (00:17→08:18)
[2020-02-27] MEDS: fentaNYL Citrate 2,500 MCG in NS 200 ML IV SCH ×4 (05:39→16:42)
[2020-02-27] MEDS: NovoLOG Insulin Flexpen SUBQ SCH ×4 (05:40→18:00)
[2020-02-27 07:58] LABS: ANION GAP 6 mmol/L (5-15); BLOOD UREA NITROGEN 18 mg/dL (7-18); CALCIUM 7.3 MG/DL (8.5-10.1); CARBON DIOXIDE 30 MMOL/L (21-32); CHLORIDE 108 MMOL/L (98-107); CREATININE 0.6 MG/DL (0.55-1.30); POTASSIUM 3.6 MMOL/L (3.5-5.1); SODIUM 144 MMOL/L (136-145)
[2020-02-27 08:07] LABS: PHOSPHORUS 2.7 MG/DL (2.5-4.9)
[2020-02-27] MEDS: Pantoprazole Inj IVP SCH (08:19)
[2020-02-27] MEDS: Norepinephrine Bitartrate 8 MG in D5W 500ml 492 ML IV SCH ×5 (08:19→22:55)
[2020-02-27] MEDS: Doxycycline Monohydrate 100mg ORAL SCH ×2 (08:20→20:29)
--- NOTE | 2020-02-27 09:02 | Pulmonology Progress Note ---
Assessment/Plan Assessment/Plan IMPRESSION: 1. Respiratory failure. 2. Bilateral pneumonia. + COVID 19 3. Pulmonary edema. 4. Diabetes mellitus. DISCUSSION: Positive COVID 19 pcr The patient is critically ill at this point in time. Increasing pressor requirments Noted Cardiology consultation. Continue broad-spectrum antibiotics. Continue respiratory support; will adjust vent settings I will follow carefully. Andrea Bland M.D. Subjective ROS Limited/Unobtainable: Yes Interval Events: Remains intubtaed; was intubated on 02/22/20 Constitutional: Reports: fever - less, other - on vent and pressors HEENT: Repors: no symptoms Respiratory: Reports: no symptoms Cardiovascular: Reports: no symptoms Gastrointestinal/Abdominal: Denies: nausea, vomiting, diarrhea Genitourinary: Reports: no symptoms Psychiatric: Reports: other - NA Skin: Denies: rash Endocrine: Reports: no symptoms Musculoskeletal: Reports: other - NA Allergies: Coded Allergies: No Known Allergies (Unverified , 01/19/19) Subjective seen and evaluated Discussed with RN Objective Last 24 Hour Vital Signs Date Time Temp Pulse Resp B/P (MAP) Pulse Ox O2 Delivery O2 Flow Rate FiO2 02/27/20 08:53 89 20 70 02/27/20 08:19 90/58 02/27/20 07:46 76 22 80 02/27/20 06:30 73 20 02/27/20 06:30 70 20 93/58 (70) 100 02/27/20 06:00 70 20 88/56 (67) 100 02/27/20 06:00 112/60 02/27/20 05:39 Mechanical Ventilator 80 02/27/20 05:30 71 20 89/56 (67) 100 02/27/20 05:08 71 20 80 02/27/20 05:00 Mechanical Ventilator 80 02/27/20 05:00 89/56 02/27/20 05:00 71 20 91/59 (70) 100 02/27/20 04:30 72 22 89/59 (69) 100 02/27/20 04:00 92 02/27/20 04:00 98.0 73 22 94/58 (70) 100 02/27/20 04:00 Mechanical Ventilator 80 02/27/20 04:00 85/56 02/27/20 04:00 80 02/27/20 04:00 Mechanical Ventilator 02/27/20 03:30 73 19 91/57 (68) 100 02/27/20 03:10 73 20 80 02/27/20 03:00 73 18 95/61 (72) 100 02/27/20 03:00 16 Mechanical Ventilator 80 02/27/20 03:00 84/50 02/27/20 03:00 18 Mechanical Ventilator 80 02/27/20 02:30 74 19 90/59 (69) 100 02/27/20 02:00 16 Mechanical Ventilator 80 02/27/20 02:00 117/57 02/27/20 02:00 16 Mechanical Ventilator 80 02/27/20 02:00 77 19 94/59 (71) 100 02/27/20 01:30 80 19 95/58 (70) 100 02/27/20 01:00 16 Mechanical Ventilator 80 02/27/20 01:00 94/59 02/27/20 01:00 18 Mechanical Ventilator 80 02/27/20 01:00 83 20 100/63 (75) 100 02/27/20 00:00 80 02/27/20 00:00 20 Mechanical Ventilator 80 02/27/20 00:00 93/53 02/27/20 00:00 95/66 02/27/20 00:00 20 Mechanical Ventilator 80 02/27/20 00:00 Mechanical Ventilator 02/27/20 00:00 90 02/27/20 00:00 98.5 91 19 66/37 (47) 99 02/26/20 23:30 88 20 93/57 (69) 100 02/26/20 23:00 90 21 94/56 (69) 99 02/26/20 23:00 Mechanical Ventilator 80 02/26/20 23:00 100/62 02/26/20 22:47 97 23 80 02/26/20 22:30 104 27 115/68 (84) 100 02/26/20 22:00 101 25 100/60 (73) 100 02/26/20 22:00 18 Mechanical Ventilator 80 02/26/20 22:00 98/55 02/26/20 21:30 108 23 97/53 (68) 99 02/26/20 21:00 18 Mechanical Ventilator 80 02/26/20 21:00 18 Mechanical Ventilator 80 02/26/20 21:00 117 24 106/61 (76) 100 02/26/20 20:30 126 31 127/72 (90) 100 02/26/20 20:20 20 Mechanical Ventilator 80 02/26/20 20:00 80 02/26/20 20:00 98.5 119 27 120/85 (97) 100 02/26/20 20:00 18 Mechanical Ventilator 80 02/26/20 20:00 126/75 02/26/20 20:00 Mechanical Ventilator 02/26/20 20:00 123 02/26/20 19:30 110 23 112/69 (83) 100 02/26/20 19:10 113 28 80 02/26/20 19:00 112 23 104/62 (76) 100 02/26/20 19:00 20 Mechanical Ventilator 80 02/26/20 19:00 115/67 02/26/20 19:00 20 Mechanical Ventilator 80 02/26/20 18:30 109 21 92/55 (67) 100 02/26/20 18:00 119 20 81/55 (64) 100 02/26/20 17:30 133 22 80/53 (62) 100 02/26/20 17:00 142 32 108/54 (72) 97 02/26/20 16:30 141 31 107/70 (82) 96 02/26/20 16:00 142 02/26/20 16:00 Mechanical Ventilator 02/26/20 16:00 Mechanical Ventilator 02/26/20 16:00 80 02/26/20 16:00 98.9 143 29 105/62 (76) 93 02/26/20 15:50 Mechanical Ventilator 02/26/20 15:48 Mechanical Ventilator 02/26/20 15:30 140 31 99/64 (76) 96 02/26/20 15:20 142 34 80 02/26/20 15:00 144 32 113/64 (80) 90 02/26/20 14:30 135 33 105/63 (77) 90 02/26/20 14:00 136 29 117/62 (80) 93 02/26/20 13:30 138 29 118/60 (79) 95 02/26/20 12:55 101 37 80 02/26/20 12:00 80 02/26/20 12:00 98.6 124 94/49 (64) 99 02/26/20 12:00 Mechanical Ventilator 02/26/20 12:00 123 02/26/20 11:30 125 31 95/51 (66) 99 02/26/20 11:00 126 24 93/46 (62) 98 02/26/20 10:30 124 24 94/51 (65) 02/26/20 10:00 121 26 105/58 (74) 95 02/26/20 09:30 123 20 102/50 (67) 95 02/26/20 09:04 129 39 80 Intake and Output 02/26/20 02/27/20 19:00 07:00 Intake Total 1239.166 ml 2062.166 ml Output Total 485 ml 490 ml Balance 754.166 ml 1572.166 ml IV Total 909.166 ml 2062.166 ml Tube Feeding 300 ml 0 ml Other 30 ml Output Urine Total 485 ml 490 ml Stool Total 0 ml General Appearance: other - sedated, on vent and pressors HEENT: normocephalic, atraumatic, anicteric, no JVD, other - oral - intubated Respiratory/Chest: chest wall non-tender, decreased breath sounds Cardiovascular: normal peripheral pulses Abdomen: normal bowel sounds, soft, non tender, non distended Genitourinary: other - + rush - urine clear Extremities: no cyanosis Skin: no rash Neurologic/Psychiatric: other - sedated, weak, on vent Lymphatic: no neck adenopathy Musculoskeletal: no effusion Laboratory Tests 02/27/20 06:10: Sodium Level 144, Potassium Level 3.6, Chloride Level 108H, Carbon Dioxide Level 30, Anion Gap 6, Blood Urea Nitrogen 18, Creatinine 0.6, Estimat Glomerular Filtration Rate > 60, Glucose Level 137H, Calcium Level 7.3L, Phosphorus Level 2.7, Magnesium Level 2.0 02/27/20 07:55: Lactic Acid Level 2.00 Current Medications Medications (Trade) Dose Ordered Sig/Cirilo Route PRN Reason Start Time Stop Time Status Last Admin Dose Admin Acetaminophen (Tylenol) 650 mg Q4H PRN ORAL Fever 02/22/20 14:15 03/23/20 14:14 Acetaminophen (Tylenol) 650 mg Q4H PRN ORAL Mild Pain (Pain Scale 1-3) 02/22/20 14:15 03/23/20 14:14 Acetaminophen (Tylenol) 650 mg Q4H PRN RECTAL Mild Pain (Pain Scale 1-3) 02/22/20 14:15 03/23/20 14:14 02/22/20 21:28 Acetaminophen (Tylenol) 650 mg Q4H PRN RECTAL FEVER 02/22/20 14:15 03/23/20 14:14 Chlorhexidine Gluconate (Maira-Hex 2%) 1 applic DAILY@2000 TOPIC 02/23/20 20:00 05/23/20 19:59 02/26/20 20:19 Dextrose (Dextrose 50%) 25 ml Q30M PRN IV Hypoglycemia 02/23/20 09:00 05/23/20 08:59 Dextrose (Dextrose 50%) 50 ml Q30M PRN IV Hypoglycemia 02/23/20 09:00 05/23/20 08:59 Diphenhydramine HCl (Benadryl) 25 mg Q6H PRN ORAL Itching/Pruritis 02/22/20 14:15 03/23/20 14:14 02/26/20 01:34 Doxycycline Monohydrate (Doxycycline Monohydrate) 100 mg EVERY 12 HOURS ORAL 02/24/20 09:00 03/02/20 08:59 02/27/20 08:20 Enoxaparin Sodium (Lovenox) 40 mg Q24H SUBQ 02/22/20 17:00 05/22/20 16:59 02/24/20 17:37 Fentanyl Citrate 2500 mcg/Sodium Chloride 250 ml @ 0 mls/hr Q24H IV 02/23/20 10:00 03/01/20 09:59 02/27/20 05:39 Heparin Sodium/ Sodium Chloride (Heparin 1000 units/500ml Premix) 1,000 unit ONCE PRN IV PICC LINE PLACEMENT 02/26/20 10:15 02/28/20 10:14 Hydroxychloroquine Sulfate (Plaquenil) 200 mg Q12HR ORAL 02/25/20 09:00 02/28/20 21:01 02/27/20 08:20 Insulin Aspart (NovoLOG) Q6HR SUBQ 02/23/20 12:00 05/23/20 11:59 02/26/20 05:57 Lidocaine HCl (Xylocaine 1% 30ml) 30 ml ONCE PRN INJ PICC LINE PLACEMENT 02/26/20 10:15 02/28/20 10:14 Lorazepam (Ativan 2mg/ml 1ml) 1 mg Q6H PRN IV For Anxiety 02/26/20 08:30 03/04/20 08:29 Midazolam HCl 100 ml @ 0 mls/hr Q24H IV 02/26/20 15:06 05/26/20 15:05 02/26/20 15:48 Norepinephrine Bitartrate 8 mg/ Dextrose 500 ml @ 0 mls/hr Q24H IV 02/23/20 19:01 03/24/20 19:00 02/27/20 08:19 Pantoprazole (Protonix) 40 mg DAILY IVP 02/23/20 09:30 03/24/20 09:29 02/27/20 08:19 Piperacillin Sod/ Tazobactam Sod 3.375 gm/Dextrose 110 ml @ 27.5 mls/hr Q8H IVPB 02/23/20 01:00 03/01/20 00:59 02/27/20 08:19 Vancomycin HCl (Vanco rx to dose) 1 ea DAILY PRN MISC Per rx protocol 02/22/20 14:30 03/23/20 14:29 Vancomycin/Sodium Chloride 275 ml @ 183.333 mls/hr Q8H IVPB 02/26/20 16:00 03/02/20 15:59 02/27/20 08:18 Andrea Bland MD February 27, 2020 09:02
--- NOTE | 2020-02-27 09:41 | General Progress Note ---
Assessment/Plan Assessment/Plan: 74 y/o M from [place], PMH HTN, DMT2, dementia, Alzheimers dx, h/o CVA/TIA, h/o DVT, schizophrenia who presents for Fever. In the ED, pt found to be septic, Tm 100.9 , RR22, WBC 7.3, Lactic acid 2.8, and ABG revealed acute hypoxic respiratory failure. Pt was intubated and will be admitted to ICU for acute hypoxic respiratory failure and pending COVID r/o. #Septic shock 2/2 #Acute Hypoxic Respiratory Failure #HCAP #COVID positive #Lactic Acidosis -Appreciate ICU level care -pt intubated in ED, 02/21 -vent management per CCU team/Pulm, wean as tolerated -Cont. COVID isolation protocol -COVID PCR positive -elevated d-dimer and BNP likely 2/2 above -cont. pressure support, Levophed and Norepi, wean as tolerated -cont. fentanyl, versed for sedation -BCx diptheroids -echo ordered, on hold due to COVID -d/w PulDr. Baldo lim -ID: plaquenil (end date 02/27), vanc, zosyn #Hypernatremia - improved -likely 2/2 dehydration -careful w/IVF given BNP elevated -daily BMPs -nephro consulted, recs appreciated #Type 2 DM -holding home metformin -ISS sensitive, accuchecks q6h #HTN -holding home bp meds given septic shock -holding Lasix 20 mg q daily, benazepril 5 mg q daily #Alzheimer disease #Dementia #Schizophrenia #Bipolar dx -reviewed MAR from [place], no home meds for schizophrenia/bipolar dx noted -holding home aricept given clinical picture DVT PPx: lovenox Time spent: 55 mins, 35 mins spent on critical care time. Critical Care Services performed include: Telemetry Review Hemodynamic measurement interpretation Laboratory data review and interpretation Medication adjustments Discussion of patient's care with ICU team, Nursing staff and PulDr. Baldo lim. Time of note may not reflect time of encounter. Subjective Allergies: Coded Allergies: No Known Allergies (Unverified , 01/19/19) Subjective F/u for acute respiratory failure, COVID+, s/p intubation on 02/21. Pt with decreasing BP overnight, started on norepi in addition to levo. Pt also with agitation, started on versed in addition to fentanyl. Afebrile. Patient remains intubated, unable to obtain ROS due to clinical picture. Objective Last 24 Hour Vital Signs Date Time Temp Pulse Resp B/P (MAP) Pulse Ox O2 Delivery O2 Flow Rate FiO2 02/27/20 09:00 83 21 101/61 (74) 94 02/27/20 08:53 89 20 70 02/27/20 08:30 76 20 90/58 (69) 100 02/27/20 08:19 90/58 02/27/20 08:00 98.1 74 20 96/59 (71) 100 02/27/20 08:00 Mechanical Ventilator 02/27/20 07:46 76 22 80 02/27/20 07:30 74 20 108/68 (81) 100 02/27/20 07:00 70 20 97/59 (72) 100 02/27/20 06:30 73 20 02/27/20 06:30 70 20 93/58 (70) 100 02/27/20 06:00 70 20 88/56 (67) 100 02/27/20 06:00 112/60 02/27/20 05:39 Mechanical Ventilator 80 02/27/20 05:30 71 20 89/56 (67) 100 02/27/20 05:08 71 20 80 02/27/20 05:00 Mechanical Ventilator 80 02/27/20 05:00 89/56 02/27/20 05:00 71 20 91/59 (70) 100 02/27/20 04:30 72 22 89/59 (69) 100 02/27/20 04:00 92 02/27/20 04:00 98.0 73 22 94/58 (70) 100 02/27/20 04:00 Mechanical Ventilator 80 02/27/20 04:00 85/56 02/27/20 04:00 80 02/27/20 04:00 Mechanical Ventilator 02/27/20 03:30 73 19 91/57 (68) 100 02/27/20 03:10 73 20 80 02/27/20 03:00 73 18 95/61 (72) 100 02/27/20 03:00 16 Mechanical Ventilator 80 02/27/20 03:00 84/50 02/27/20 03:00 18 Mechanical Ventilator 80 02/27/20 02:30 74 19 90/59 (69) 100 02/27/20 02:00 16 Mechanical Ventilator 80 02/27/20 02:00 117/57 02/27/20 02:00 16 Mechanical Ventilator 80 02/27/20 02:00 77 19 94/59 (71) 100 02/27/20 01:30 80 19 95/58 (70) 100 02/27/20 01:00 16 Mechanical Ventilator 80 02/27/20 01:00 94/59 02/27/20 01:00 18 Mechanical Ventilator 80 02/27/20 01:00 83 20 100/63 (75) 100 02/27/20 00:00 80 02/27/20 00:00 20 Mechanical Ventilator 80 02/27/20 00:00 93/53 02/27/20 00:00 95/66 02/27/20 00:00 20 Mechanical Ventilator 80 02/27/20 00:00 Mechanical Ventilator 02/27/20 00:00 90 02/27/20 00:00 98.5 91 19 66/37 (47) 99 02/26/20 23:30 88 20 93/57 (69) 100 02/26/20 23:00 90 21 94/56 (69) 99 02/26/20 23:00 Mechanical Ventilator 80 02/26/20 23:00 100/62 02/26/20 22:47 97 23 80 02/26/20 22:30 104 27 115/68 (84) 100 02/26/20 22:00 101 25 100/60 (73) 100 02/26/20 22:00 18 Mechanical Ventilator 80 02/26/20 22:00 98/55 02/26/20 21:30 108 23 97/53 (68) 99 02/26/20 21:00 18 Mechanical Ventilator 80 02/26/20 21:00 18 Mechanical Ventilator 80 02/26/20 21:00 117 24 106/61 (76) 100 02/26/20 20:30 126 31 127/72 (90) 100 02/26/20 20:20 20 Mechanical Ventilator 80 02/26/20 20:00 80 02/26/20 20:00 98.5 119 27 120/85 (97) 100 02/26/20 20:00 18 Mechanical Ventilator 80 02/26/20 20:00 126/75 02/26/20 20:00 Mechanical Ventilator 02/26/20 20:00 123 02/26/20 19:30 110 23 112/69 (83) 100 02/26/20 19:10 113 28 80 02/26/20 19:00 112 23 104/62 (76) 100 02/26/20 19:00 20 Mechanical Ventilator 80 02/26/20 19:00 115/67 02/26/20 19:00 20 Mechanical Ventilator 80 02/26/20 18:30 109 21 92/55 (67) 100 02/26/20 18:00 119 20 81/55 (64) 100 02/26/20 17:30 133 22 80/53 (62) 100 02/26/20 17:00 142 32 108/54 (72) 97 02/26/20 16:30 141 31 107/70 (82) 96 02/26/20 16:00 142 02/26/20 16:00 Mechanical Ventilator 02/26/20 16:00 Mechanical Ventilator 02/26/20 16:00 80 02/26/20 16:00 98.9 143 29 105/62 (76) 93 02/26/20 15:50 Mechanical Ventilator 02/26/20 15:48 Mechanical Ventilator 02/26/20 15:30 140 31 99/64 (76) 96 02/26/20 15:20 142 34 80 02/26/20 15:00 144 32 113/64 (80) 90 02/26/20 14:30 135 33 105/63 (77) 90 02/26/20 14:00 136 29 117/62 (80) 93 02/26/20 13:30 138 29 118/60 (79) 95 02/26/20 12:55 101 37 80 02/26/20 12:00 80 02/26/20 12:00 98.6 124 94/49 (64) 99 02/26/20 12:00 Mechanical Ventilator 02/26/20 12:00 123 02/26/20 11:30 125 31 95/51 (66) 99 02/26/20 11:00 126 24 93/46 (62) 98 02/26/20 10:30 124 24 94/51 (65) 02/26/20 10:00 121 26 105/58 (74) 95 Intake and Output 02/26/20 02/27/20 19:00 07:00 Intake Total 1239.166 ml 2062.166 ml Output Total 485 ml 490 ml Balance 754.166 ml 1572.166 ml IV Total 909.166 ml 2062.166 ml Tube Feeding 300 ml 0 ml Other 30 ml Output Urine Total 485 ml 490 ml Stool Total 0 ml Laboratory Tests 02/27/20 06:10: Sodium Level 144, Potassium Level 3.6, Chloride Level 108H, Carbon Dioxide Level 30, Anion Gap 6, Blood Urea Nitrogen 18, Creatinine 0.6, Estimat Glomerular Filtration Rate > 60, Glucose Level 137H, Calcium Level 7.3L, Phosphorus Level 2.7, Magnesium Level 2.0 02/27/20 07:55: Lactic Acid Level 2.00 Height (Feet): 5 Height (Inches): 5.00 Weight (Pounds): 120 Objective General: intubated, sedated HEENT: NCAT, ETT in place, OG tube in place CV: Tachycardic on tele Pulm: equal rise in lungs b/l GI: abd appears non-distended Ext: No lower extremity edema bilaterally Gosia Nunez M.D. February 27, 2020 09:41
--- NOTE | 2020-02-27 14:43 | Cardiac Electrophysiology PN ---
Assessment/Plan Assessment/Plan 1. Respiratory failure likely due to COVID pneumonia However, cannot rule out underlying CHF as BNP is more than 2000. Echo EF 50%. His white count however is only 7.2 with lymphopenia On the Vent 50% Fio2, PEEP 5 2. Septic shock likely due to pneumonia and dehydration. Maxed out on Levo and Abx 3. Hypernatremia, resolved with IV fluids. 4. Dehydration. Subjective Subjective Maxed out on Levo on the vent with Fio2 50% in ICU. EF 50%. Covid PCR is positive Objective Last 24 Hour Vital Signs Date Time Temp Pulse Resp B/P (MAP) Pulse Ox O2 Delivery O2 Flow Rate FiO2 02/27/20 14:31 96/55 02/27/20 14:00 96/55 02/27/20 14:00 20 Mechanical Ventilator 50 02/27/20 13:25 20 Mechanical Ventilator 60 02/27/20 13:20 20 Mechanical Ventilator 60 02/27/20 13:17 95 20 50 02/27/20 13:15 20 Mechanical Ventilator 60 02/27/20 13:10 20 Mechanical Ventilator 60 02/27/20 13:00 20 Mechanical Ventilator 60 02/27/20 13:00 99/57 02/27/20 13:00 20 Mechanical Ventilator 60 02/27/20 12:30 93 21 98/55 (69) 100 02/27/20 12:00 Mechanical Ventilator 02/27/20 12:00 20 Mechanical Ventilator 60 02/27/20 12:00 97/59 02/27/20 12:00 20 Mechanical Ventilator 60 02/27/20 12:00 99.0 93 21 100/59 (73) 98 02/27/20 12:00 82 02/27/20 11:30 92 22 99/57 (71) 97 02/27/20 11:00 20 Mechanical Ventilator 60 02/27/20 11:00 100/59 02/27/20 11:00 20 Mechanical Ventilator 60 02/27/20 11:00 90 20 97/59 (72) 98 02/27/20 10:49 60 02/27/20 10:45 95 20 60 02/27/20 10:45 89 20 100/59 (73) 100 02/27/20 10:30 87 20 99/56 (70) 99 02/27/20 10:15 87 21 100/62 (75) 99 02/27/20 10:00 87 20 104/60 (75) 98 02/27/20 10:00 20 Mechanical Ventilator 70 02/27/20 10:00 100/62 02/27/20 10:00 20 Mechanical Ventilator 70 02/27/20 09:45 86 21 100/59 (73) 99 02/27/20 09:30 86 20 103/57 (72) 97 02/27/20 09:15 103/57 02/27/20 09:00 83 21 101/61 (74) 94 02/27/20 09:00 20 Mechanical Ventilator 70 02/27/20 09:00 104/60 02/27/20 09:00 20 Mechanical Ventilator 70 02/27/20 08:53 89 20 70 02/27/20 08:45 101/61 02/27/20 08:30 76 20 90/58 (69) 100 02/27/20 08:30 131/80 02/27/20 08:19 90/58 02/27/20 08:00 98.1 74 20 96/59 (71) 100 02/27/20 08:00 70 02/27/20 08:00 Mechanical Ventilator 02/27/20 08:00 20 Mechanical Ventilator 70 02/27/20 08:00 20 Mechanical Ventilator 70 02/27/20 08:00 89 02/27/20 07:46 76 22 80 02/27/20 07:30 74 20 108/68 (81) 100 02/27/20 07:00 19 Mechanical Ventilator 80 02/27/20 07:00 20 Mechanical Ventilator 80 02/27/20 07:00 70 20 97/59 (72) 100 02/27/20 06:30 73 20 02/27/20 06:30 70 20 93/58 (70) 100 02/27/20 06:00 70 20 88/56 (67) 100 02/27/20 06:00 112/60 02/27/20 05:39 Mechanical Ventilator 80 02/27/20 05:30 71 20 89/56 (67) 100 02/27/20 05:08 71 20 80 02/27/20 05:00 Mechanical Ventilator 80 02/27/20 05:00 89/56 02/27/20 05:00 71 20 91/59 (70) 100 02/27/20 04:30 72 22 89/59 (69) 100 02/27/20 04:00 92 02/27/20 04:00 98.0 73 22 94/58 (70) 100 02/27/20 04:00 Mechanical Ventilator 80 02/27/20 04:00 85/56 02/27/20 04:00 80 02/27/20 04:00 Mechanical Ventilator 02/27/20 03:30 73 19 91/57 (68) 100 02/27/20 03:10 73 20 80 02/27/20 03:00 73 18 95/61 (72) 100 02/27/20 03:00 16 Mechanical Ventilator 80 02/27/20 03:00 84/50 02/27/20 03:00 18 Mechanical Ventilator 80 02/27/20 02:30 74 19 90/59 (69) 100 02/27/20 02:00 16 Mechanical Ventilator 80 02/27/20 02:00 117/57 02/27/20 02:00 16 Mechanical Ventilator 80 02/27/20 02:00 77 19 94/59 (71) 100 02/27/20 01:30 80 19 95/58 (70) 100 02/27/20 01:00 16 Mechanical Ventilator 80 02/27/20 01:00 94/59 02/27/20 01:00 18 Mechanical Ventilator 80 02/27/20 01:00 83 20 100/63 (75) 100 02/27/20 00:00 80 02/27/20 00:00 20 Mechanical Ventilator 80 02/27/20 00:00 93/53 02/27/20 00:00 95/66 02/27/20 00:00 20 Mechanical Ventilator 80 02/27/20 00:00 Mechanical Ventilator 02/27/20 00:00 90 02/27/20 00:00 98.5 91 19 66/37 (47) 99 02/26/20 23:30 88 20 93/57 (69) 100 02/26/20 23:00 90 21 94/56 (69) 99 02/26/20 23:00 Mechanical Ventilator 80 02/26/20 23:00 100/62 02/26/20 22:47 97 23 80 02/26/20 22:30 104 27 115/68 (84) 100 02/26/20 22:00 101 25 100/60 (73) 100 02/26/20 22:00 18 Mechanical Ventilator 80 02/26/20 22:00 98/55 5/1/20 21:30 108 23 97/53 (68) 99 02/26/20 21:00 18 Mechanical Ventilator 80 02/26/20 21:00 18 Mechanical Ventilator 80 02/26/20 21:00 117 24 106/61 (76) 100 02/26/20 20:30 126 31 127/72 (90) 100 02/26/20 20:20 20 Mechanical Ventilator 80 02/26/20 20:00 80 02/26/20 20:00 98.5 119 27 120/85 (97) 100 02/26/20 20:00 18 Mechanical Ventilator 80 02/26/20 20:00 126/75 02/26/20 20:00 Mechanical Ventilator 02/26/20 20:00 123 02/26/20 19:30 110 23 112/69 (83) 100 02/26/20 19:10 113 28 80 02/26/20 19:00 112 23 104/62 (76) 100 02/26/20 19:00 20 Mechanical Ventilator 80 02/26/20 19:00 115/67 02/26/20 19:00 20 Mechanical Ventilator 80 02/26/20 18:30 109 21 92/55 (67) 100 02/26/20 18:00 119 20 81/55 (64) 100 02/26/20 17:30 133 22 80/53 (62) 100 02/26/20 17:00 142 32 108/54 (72) 97 02/26/20 16:30 141 31 107/70 (82) 96 02/26/20 16:00 142 02/26/20 16:00 Mechanical Ventilator 02/26/20 16:00 Mechanical Ventilator 02/26/20 16:00 80 02/26/20 16:00 98.9 143 29 105/62 (76) 93 02/26/20 15:50 Mechanical Ventilator 02/26/20 15:48 Mechanical Ventilator 02/26/20 15:30 140 31 99/64 (76) 96 02/26/20 15:20 142 34 80 02/26/20 15:00 144 32 113/64 (80) 90 Intake and Output 02/26/20 02/27/20 19:00 07:00 Intake Total 1239.166 ml 2095.566 ml Output Total 485 ml 490 ml Balance 754.166 ml 1605.566 ml IV Total 909.166 ml 2095.566 ml Tube Feeding 300 ml 0 ml Other 30 ml Output Urine Total 485 ml 490 ml Stool Total 0 ml Laboratory Tests Test 02/27/20 06:10 02/27/20 07:55 Sodium Level 144 MMOL/L (136-145) Potassium Level 3.6 MMOL/L (3.5-5.1) Chloride Level 108 MMOL/L (98-107) H Carbon Dioxide Level 30 MMOL/L (21-32) Anion Gap 6 mmol/L (5-15) Blood Urea Nitrogen 18 mg/dL (7-18) Creatinine 0.6 MG/DL (0.55-1.30) Estimat Glomerular Filtration Rate > 60 mL/min (>60) Glucose Level 137 MG/DL (74-106) H Calcium Level 7.3 MG/DL (8.5-10.1) L Phosphorus Level 2.7 MG/DL (2.5-4.9) Magnesium Level 2.0 MG/DL (1.8-2.4) Lactic Acid Level 2.00 mmol/L (0.4-2.0) Objective HEAD AND NECK: No JVD. He is orally intubated. LUNGS: Decreased breath sounds and coarse rhonchi. CARDIOVASCULAR: Regular S1 and S2 with no gallop. ABDOMEN: Soft. EXTREMITIES: No pitting edema. Deric Garcia MD February 27, 2020 14:43
[2020-02-27 15:35] LABS: HEMATOCRIT 27.6 % (42.0-52.0); HEMOGLOBIN 9.5 G/DL (14.2-18.0); MEAN CORPUSCULAR VOLUME 88 FL (80-99); PLATELET COUNT 35 K/UL (150-450); RED BLOOD COUNT 3.13 M/UL (4.70-6.10); RED CELL DISTRIBUTION WIDTH 13.5 % (11.6-14.8); WHITE BLOOD COUNT 7.7 K/UL (4.8-10.8)
[2020-02-27] MEDS ORDERED: Tubing IV Secondary IV ONE (15:53)
[2020-02-27] MEDS: Enoxaparin 40mg Inj SUBQ SCH (17:00)
--- NOTE | 2020-02-27 18:22 | Nephrology Progress Note ---
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 # h/o DVT # schizophrenia, bipolar - replete lytes, phos and K prn - continue icu care - monitor off IVF - replete lytes prn - vasopressor per pulmonary - antibiotics per ICU - trend lactic acid - follow cx - vent management per pulmonary - monitor lytes - BG control - hold antihypertensive Subjective ROS Limited/Unobtainable: Yes Subjective lytes reviewed on levo 20 plt down to 35 remains intubated Objective Objective Last 24 Hour Vital Signs Date Time Temp Pulse Resp B/P (MAP) Pulse Ox O2 Delivery O2 Flow Rate FiO2 02/27/20 17:30 109 25 96/54 (68) 97 02/27/20 17:16 109 24 50 02/27/20 17:00 104 25 100/55 (70) 97 02/27/20 16:42 20 Mechanical Ventilator 50 02/27/20 16:30 104 25 99/60 (73) 96 02/27/20 16:00 Mechanical Ventilator 02/27/20 16:00 103 02/27/20 16:00 50 02/27/20 16:00 100 23 100/51 (67) 97 02/27/20 15:30 99 22 67/38 (48) 96 02/27/20 15:06 20 Mechanical Ventilator 50 02/27/20 15:00 96 22 96/53 (67) 95 02/27/20 14:49 94 22 50 02/27/20 14:31 96/55 02/27/20 14:30 98 21 92/54 (67) 95 02/27/20 14:00 96/55 02/27/20 14:00 20 Mechanical Ventilator 50 02/27/20 14:00 95 20 99/55 (70) 96 02/27/20 13:30 95 21 97/55 (69) 95 02/27/20 13:25 20 Mechanical Ventilator 60 02/27/20 13:20 20 Mechanical Ventilator 60 02/27/20 13:17 95 20 50 02/27/20 13:15 20 Mechanical Ventilator 60 02/27/20 13:10 20 Mechanical Ventilator 60 02/27/20 13:00 93 20 98/59 (72) 99 02/27/20 13:00 20 Mechanical Ventilator 60 02/27/20 13:00 99/57 02/27/20 13:00 20 Mechanical Ventilator 60 02/27/20 12:30 93 21 98/55 (69) 100 02/27/20 12:00 Mechanical Ventilator 02/27/20 12:00 50 02/27/20 12:00 20 Mechanical Ventilator 60 02/27/20 12:00 97/59 02/27/20 12:00 20 Mechanical Ventilator 60 02/27/20 12:00 99.0 93 21 100/59 (73) 98 02/27/20 12:00 82 02/27/20 11:30 92 22 99/57 (71) 97 02/27/20 11:00 20 Mechanical Ventilator 60 02/27/20 11:00 100/59 02/27/20 11:00 20 Mechanical Ventilator 60 02/27/20 11:00 90 20 97/59 (72) 98 02/27/20 10:49 60 02/27/20 10:45 95 20 60 02/27/20 10:45 89 20 100/59 (73) 100 02/27/20 10:30 87 20 99/56 (70) 99 02/27/20 10:15 87 21 100/62 (75) 99 02/27/20 10:00 87 20 104/60 (75) 98 02/27/20 10:00 20 Mechanical Ventilator 70 02/27/20 10:00 100/62 02/27/20 10:00 20 Mechanical Ventilator 70 02/27/20 09:45 86 21 100/59 (73) 99 02/27/20 09:30 86 20 103/57 (72) 97 02/27/20 09:15 103/57 02/27/20 09:00 83 21 101/61 (74) 94 02/27/20 09:00 20 Mechanical Ventilator 70 02/27/20 09:00 104/60 02/27/20 09:00 20 Mechanical Ventilator 70 02/27/20 08:53 89 20 70 02/27/20 08:45 101/61 02/27/20 08:30 76 20 90/58 (69) 100 02/27/20 08:30 131/80 02/27/20 08:19 90/58 02/27/20 08:00 98.1 74 20 96/59 (71) 100 02/27/20 08:00 70 02/27/20 08:00 Mechanical Ventilator 02/27/20 08:00 20 Mechanical Ventilator 70 02/27/20 08:00 20 Mechanical Ventilator 70 02/27/20 08:00 89 02/27/20 07:46 76 22 80 02/27/20 07:30 74 20 108/68 (81) 100 02/27/20 07:00 19 Mechanical Ventilator 80 02/27/20 07:00 20 Mechanical Ventilator 80 02/27/20 07:00 70 20 97/59 (72) 100 02/27/20 06:30 73 20 02/27/20 06:30 70 20 93/58 (70) 100 02/27/20 06:00 70 20 88/56 (67) 100 02/27/20 06:00 112/60 02/27/20 05:39 Mechanical Ventilator 80 02/27/20 05:30 71 20 89/56 (67) 100 02/27/20 05:08 71 20 80 02/27/20 05:00 Mechanical Ventilator 80 02/27/20 05:00 89/56 02/27/20 05:00 71 20 91/59 (70) 100 02/27/20 04:30 72 22 89/59 (69) 100 02/27/20 04:00 92 02/27/20 04:00 98.0 73 22 94/58 (70) 100 02/27/20 04:00 Mechanical Ventilator 80 02/27/20 04:00 85/56 02/27/20 04:00 80 02/27/20 04:00 Mechanical Ventilator 02/27/20 03:30 73 19 91/57 (68) 100 02/27/20 03:10 73 20 80 02/27/20 03:00 73 18 95/61 (72) 100 02/27/20 03:00 16 Mechanical Ventilator 80 02/27/20 03:00 84/50 02/27/20 03:00 18 Mechanical Ventilator 80 02/27/20 02:30 74 19 90/59 (69) 100 02/27/20 02:00 16 Mechanical Ventilator 80 02/27/20 02:00 117/57 02/27/20 02:00 16 Mechanical Ventilator 80 02/27/20 02:00 77 19 94/59 (71) 100 02/27/20 01:30 80 19 95/58 (70) 100 02/27/20 01:00 16 Mechanical Ventilator 80 02/27/20 01:00 94/59 02/27/20 01:00 18 Mechanical Ventilator 80 02/27/20 01:00 83 20 100/63 (75) 100 02/27/20 00:00 80 02/27/20 00:00 20 Mechanical Ventilator 80 02/27/20 00:00 93/53 02/27/20 00:00 95/66 02/27/20 00:00 20 Mechanical Ventilator 80 02/27/20 00:00 Mechanical Ventilator 02/27/20 00:00 90 02/27/20 00:00 98.5 91 19 66/37 (47) 99 02/26/20 23:30 88 20 93/57 (69) 100 02/26/20 23:00 90 21 94/56 (69) 99 02/26/20 23:00 Mechanical Ventilator 80 02/26/20 23:00 100/62 02/26/20 22:47 97 23 80 02/26/20 22:30 104 27 115/68 (84) 100 02/26/20 22:00 101 25 100/60 (73) 100 02/26/20 22:00 18 Mechanical Ventilator 80 02/26/20 22:00 98/55 02/26/20 21:30 108 23 97/53 (68) 99 02/26/20 21:00 18 Mechanical Ventilator 80 02/26/20 21:00 18 Mechanical Ventilator 80 02/26/20 21:00 117 24 106/61 (76) 100 02/26/20 20:30 126 31 127/72 (90) 100 02/26/20 20:20 20 Mechanical Ventilator 80 02/26/20 20:00 80 02/26/20 20:00 98.5 119 27 120/85 (97) 100 02/26/20 20:00 18 Mechanical Ventilator 80 02/26/20 20:00 126/75 02/26/20 20:00 Mechanical Ventilator 02/26/20 20:00 123 02/26/20 19:30 110 23 112/69 (83) 100 02/26/20 19:10 113 28 80 02/26/20 19:00 112 23 104/62 (76) 100 02/26/20 19:00 20 Mechanical Ventilator 80 02/26/20 19:00 115/67 02/26/20 19:00 20 Mechanical Ventilator 80 02/26/20 18:30 109 21 92/55 (67) 100 Intake and Output 02/26/20 02/27/20 19:00 07:00 Intake Total 1239.166 ml 2095.566 ml Output Total 485 ml 540 ml Balance 754.166 ml 1555.566 ml IV Total 909.166 ml 2095.566 ml Tube Feeding 300 ml 0 ml Other 30 ml Output Urine Total 485 ml 540 ml Stool Total 0 ml Laboratory Tests 02/27/20 06:10: Sodium Level 144, Potassium Level 3.6, Chloride Level 108H, Carbon Dioxide Level 30, Anion Gap 6, Blood Urea Nitrogen 18, Creatinine 0.6, Estimat Glomerular Filtration Rate > 60, Glucose Level 137H, Calcium Level 7.3L, Phosphorus Level 2.7, Magnesium Level 2.0 02/27/20 07:55: Lactic Acid Level 2.00 02/27/20 14:45: White Blood Count 7.7, Red Blood Count 3.13L, Hemoglobin 9.5L, Hematocrit 27.6L , Mean Corpuscular Volume 88, Mean Corpuscular Hemoglobin 30.4, Mean Corpuscular Hemoglobin Concent 34.4, Red Cell Distribution Width 13.5, Platelet Count 35#L, Mean Platelet Volume 10.0, Neutrophils (%) (Auto) , Lymphocytes (%) (Auto) , Monocytes (%) (Auto) , Eosinophils (%) (Auto) , Basophils (%) (Auto) , Neutrophils % (Manual) [Pending], Lymphocytes % (Manual) [Pending], Platelet Estimate [Pending], Platelet Morphology [Pending], Vancomycin Level Trough 22.1H Height (Feet): 5 Height (Inches): 5.00 Weight (Pounds): 120 Objective General Appearance: other - intubated Lines, tubes and drains: peripheral HEENT: normocephalic, atraumatic, other - dry mucous membranes Neck: non-tender, normal alignment Respiratory/Chest: rhonchi - bilaterally Cardiovascular/Chest: normal peripheral pulses, normal rate Abdomen: soft, hypoactive bowel sounds Extremities: normal range of motion, no calf tenderness, non-pitting, no edema Skin Exam: normal pigmentation, warm/dry Dwayne Salas M.D. February 27, 2020 18:22
--- NOTE | 2020-02-27 20:08 | Infectious Diseases Prog Note ---
Assessment/Plan Assessment/Plan ASSESSMENT AND PLAN: 1. covid-19 virus infection/pna +, rule out bacterial pna, sepsis, shock, leukocytosis, fevers, vent, pressors, mrsa colonization bc - one bottle - diphtheroids - likely contaminat - zosyn, doxycycline, vancomycin -day # 5 - hydroxychloroquine - day # 4 - f/u on cultures, labs and chest x-ray - condition - critical - icu care 2. Respiratory failure, on vent. 3. ICU care. 4. Pressors. 5. Low potassium or hypokalemia. 6. Diabetes. 7. Hypertension. 8. Alzheimer's. 9. CVA. 10. TIA. 11. DVT. 12. Dementia. 13. Aspiration risk. 14. No known drug allergies. 15. Social history negative. 16. Family history is noncontributory. 17. MAR was noted. 18. Case discussed with RN. 19. Poor prognosis. 20. Skin care protocol. 21. Case discussed with Dr. Nunez. Subjective Constitutional: Reports: fever, other - on vent and pressors HEENT: Reports: congestion Respiratory: Reports: shortness of breath Cardiovascular: Reports: other - + pressors Gastrointestinal/Abdominal: Denies: nausea, vomiting, diarrhea Genitourinary: Reports: other - + rush Neurologic: Reports: weakness Psychiatric: Reports: other - NA Skin: Denies: rash Hematologic: Denies: bleeding Musculoskeletal: Reports: other - NA Allergies: Coded Allergies: No Known Allergies (Unverified , 01/19/19) Objective Vital Signs Last 24 Hour Vital Signs Date Time Temp Pulse Resp B/P (MAP) Pulse Ox O2 Delivery O2 Flow Rate FiO2 02/27/20 18:30 108 25 92/48 (63) 93 02/27/20 18:00 106 21 92/49 (63) 99 02/27/20 18:00 92/49 02/27/20 18:00 20 Mechanical Ventilator 50 02/27/20 17:30 109 25 96/54 (68) 97 02/27/20 17:18 101.0 02/27/20 17:16 109 24 50 02/27/20 17:00 100/55 02/27/20 17:00 20 Mechanical Ventilator 50 02/27/20 17:00 104 25 100/55 (70) 97 02/27/20 16:42 20 Mechanical Ventilator 50 02/27/20 16:41 20 Mechanical Ventilator 50 02/27/20 16:30 104 25 99/60 (73) 96 02/27/20 16:00 Mechanical Ventilator 02/27/20 16:00 103 02/27/20 16:00 50 02/27/20 16:00 100/51 02/27/20 16:00 20 Mechanical Ventilator 50 02/27/20 16:00 100 23 100/51 (67) 97 02/27/20 15:30 99 22 67/38 (48) 96 02/27/20 15:06 20 Mechanical Ventilator 50 02/27/20 15:00 95/54 02/27/20 15:00 20 Mechanical Ventilator 50 02/27/20 15:00 96 22 96/53 (67) 95 02/27/20 14:49 94 22 50 02/27/20 14:31 96/55 02/27/20 14:30 94/52 02/27/20 14:30 98 21 92/54 (67) 95 02/27/20 14:00 96/55 02/27/20 14:00 20 Mechanical Ventilator 50 02/27/20 14:00 95 20 99/55 (70) 96 02/27/20 13:30 95 21 97/55 (69) 95 02/27/20 13:25 20 Mechanical Ventilator 60 02/27/20 13:20 20 Mechanical Ventilator 60 02/27/20 13:17 95 20 50 02/27/20 13:15 20 Mechanical Ventilator 60 02/27/20 13:10 20 Mechanical Ventilator 60 02/27/20 13:00 93 20 98/59 (72) 99 02/27/20 13:00 20 Mechanical Ventilator 60 02/27/20 13:00 99/57 02/27/20 13:00 20 Mechanical Ventilator 60 02/27/20 12:30 93 21 98/55 (69) 100 02/27/20 12:00 Mechanical Ventilator 02/27/20 12:00 50 02/27/20 12:00 20 Mechanical Ventilator 60 02/27/20 12:00 97/59 02/27/20 12:00 20 Mechanical Ventilator 60 02/27/20 12:00 99.0 93 21 100/59 (73) 98 02/27/20 12:00 82 02/27/20 11:30 92 22 99/57 (71) 97 02/27/20 11:00 20 Mechanical Ventilator 60 02/27/20 11:00 100/59 02/27/20 11:00 20 Mechanical Ventilator 60 02/27/20 11:00 90 20 97/59 (72) 98 02/27/20 10:49 60 02/27/20 10:45 95 20 60 02/27/20 10:45 89 20 100/59 (73) 100 02/27/20 10:30 87 20 99/56 (70) 99 02/27/20 10:15 87 21 100/62 (75) 99 02/27/20 10:00 87 20 104/60 (75) 98 02/27/20 10:00 20 Mechanical Ventilator 70 02/27/20 10:00 100/62 02/27/20 10:00 20 Mechanical Ventilator 70 02/27/20 09:45 86 21 100/59 (73) 99 02/27/20 09:30 86 20 103/57 (72) 97 02/27/20 09:15 103/57 02/27/20 09:00 83 21 101/61 (74) 94 02/27/20 09:00 20 Mechanical Ventilator 70 02/27/20 09:00 104/60 02/27/20 09:00 20 Mechanical Ventilator 70 02/27/20 08:53 89 20 70 02/27/20 08:45 101/61 02/27/20 08:30 76 20 90/58 (69) 100 02/27/20 08:30 131/80 02/27/20 08:19 90/58 02/27/20 08:00 98.1 74 20 96/59 (71) 100 02/27/20 08:00 70 02/27/20 08:00 Mechanical Ventilator 02/27/20 08:00 20 Mechanical Ventilator 70 02/27/20 08:00 20 Mechanical Ventilator 70 02/27/20 08:00 89 02/27/20 07:46 76 22 80 02/27/20 07:30 74 20 108/68 (81) 100 02/27/20 07:00 19 Mechanical Ventilator 80 02/27/20 07:00 20 Mechanical Ventilator 80 02/27/20 07:00 70 20 97/59 (72) 100 02/27/20 06:30 73 20 02/27/20 06:30 70 20 93/58 (70) 100 02/27/20 06:00 70 20 88/56 (67) 100 02/27/20 06:00 112/60 02/27/20 05:39 Mechanical Ventilator 80 02/27/20 05:30 71 20 89/56 (67) 100 02/27/20 05:08 71 20 80 02/27/20 05:00 Mechanical Ventilator 80 02/27/20 05:00 89/56 02/27/20 05:00 71 20 91/59 (70) 100 02/27/20 04:30 72 22 89/59 (69) 100 02/27/20 04:00 92 02/27/20 04:00 98.0 73 22 94/58 (70) 100 02/27/20 04:00 Mechanical Ventilator 80 02/27/20 04:00 85/56 02/27/20 04:00 80 02/27/20 04:00 Mechanical Ventilator 02/27/20 03:30 73 19 91/57 (68) 100 02/27/20 03:10 73 20 80 02/27/20 03:00 73 18 95/61 (72) 100 02/27/20 03:00 16 Mechanical Ventilator 80 02/27/20 03:00 84/50 02/27/20 03:00 18 Mechanical Ventilator 80 02/27/20 02:30 74 19 90/59 (69) 100 02/27/20 02:00 16 Mechanical Ventilator 80 02/27/20 02:00 117/57 02/27/20 02:00 16 Mechanical Ventilator 80 02/27/20 02:00 77 19 94/59 (71) 100 02/27/20 01:30 80 19 95/58 (70) 100 02/27/20 01:00 16 Mechanical Ventilator 80 02/27/20 01:00 94/59 02/27/20 01:00 18 Mechanical Ventilator 80 02/27/20 01:00 83 20 100/63 (75) 100 02/27/20 00:00 80 02/27/20 00:00 20 Mechanical Ventilator 80 02/27/20 00:00 93/53 02/27/20 00:00 95/66 02/27/20 00:00 20 Mechanical Ventilator 80 02/27/20 00:00 Mechanical Ventilator 02/27/20 00:00 90 02/27/20 00:00 98.5 91 19 66/37 (47) 99 02/26/20 23:30 88 20 93/57 (69) 100 02/26/20 23:00 90 21 94/56 (69) 99 02/26/20 23:00 Mechanical Ventilator 80 02/26/20 23:00 100/62 02/26/20 22:47 97 23 80 02/26/20 22:30 104 27 115/68 (84) 100 02/26/20 22:00 101 25 100/60 (73) 100 02/26/20 22:00 18 Mechanical Ventilator 80 02/26/20 22:00 98/55 02/26/20 21:30 108 23 97/53 (68) 99 02/26/20 21:00 18 Mechanical Ventilator 80 02/26/20 21:00 18 Mechanical Ventilator 80 02/26/20 21:00 117 24 106/61 (76) 100 02/26/20 20:30 126 31 127/72 (90) 100 02/26/20 20:20 20 Mechanical Ventilator 80 Height (Feet): 5 Height (Inches): 5.00 Weight (Pounds): 120 General Appearance: no acute distress HEENT: normocephalic, atraumatic, anicteric, other - oral - intubated Respiratory/Chest: crackles/rales, rhonchi - bilaterally Cardiovascular: normal rate, regular rhythm, no gallop/murmur, no JVD Abdomen: normal bowel sounds, soft, non tender, no organomegaly, non distended Genitourinary: other - + rush - urine clear Extremities: no cyanosis Skin: no rash Neurologic/Psychiatric: other - weak, sedated Lymphatic: no neck adenopathy Musculoskeletal: no effusion Objective Chest x-ray - 02/23/30 - Procedure: XRAY Chest 1v Indication: Respiratory failure shortness of breath Technique: XRAY Chest 1v Comparison: 02/22/2020 Findings: Heart borders are obscured. Interstitial and extensive predominantly perihilar airspace opacities are noted. There is slight decrease in opacification in the right midlung but there is worsening of disease in the left lung. Is been development of a small layering left pleural effusion. Endotracheal tube tip approximately 1.2 cm above the holly. Enteric tube tip in the distal stomach. Osseous structures are stable. There are atherosclerotic calcifications. IMPRESSION: Overall worsening of aeration with increasing airspace disease in the left lung and development of a small layering left pleural effusion. Persistent patchy perihilar opacities in the right lung. Endotracheal and enteric tubes remain in place. Tip of the ET tube approximately 1.2 cm above the holly. Consider slight retraction (1-2 cms). Chest x-ray - 02/26/20 - Procedure: XRAY Chest 1v Indication: Reason For Exam: ABN CHST Technique: One view of the chest Comparison: 02/24/2020 Findings: Endotracheal tube demonstrates slightly improved position, now roughly 3 cm above the holly. There is increased atelectasis at the right lung base. Consolidation at the right lung base appears unchanged, but there does appear to be decreased involvement of the upper lobe. There is still extensive consolidation at the left lung base, but aeration appears equivocally slightly improved, and there is less upper lobe involvement. Orogastric tube again demonstrated. 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 Complete Laboratory Tests Test 02/27/20 06:10 02/27/20 07:55 02/27/20 14:45 Sodium Level 144 MMOL/L (136-145) Potassium Level 3.6 MMOL/L (3.5-5.1) Chloride Level 108 MMOL/L (98-107) H Carbon Dioxide Level 30 MMOL/L (21-32) Anion Gap 6 mmol/L (5-15) Blood Urea Nitrogen 18 mg/dL (7-18) Creatinine 0.6 MG/DL (0.55-1.30) Estimat Glomerular Filtration Rate > 60 mL/min (>60) Glucose Level 137 MG/DL (74-106) H Calcium Level 7.3 MG/DL (8.5-10.1) L Phosphorus Level 2.7 MG/DL (2.5-4.9) Magnesium Level 2.0 MG/DL (1.8-2.4) Lactic Acid Level 2.00 mmol/L (0.4-2.0) White Blood Count 7.7 K/UL (4.8-10.8) Red Blood Count 3.13 M/UL (4.70-6.10) L Hemoglobin 9.5 G/DL (14.2-18.0) L Hematocrit 27.6 % (42.0-52.0) L Mean Corpuscular Volume 88 FL (80-99) Mean Corpuscular Hemoglobin 30.4 PG (27.0-31.0) Mean Corpuscular Hemoglobin Concent 34.4 G/DL (32.0-36.0) Red Cell Distribution Width 13.5 % (11.6-14.8) Platelet Count 35 K/UL (150-450) #L Mean Platelet Volume 10.0 FL (6.5-10.1) Neutrophils (%) (Auto) % (45.0-75.0) Lymphocytes (%) (Auto) % (20.0-45.0) Monocytes (%) (Auto) % (1.0-10.0) Eosinophils (%) (Auto) % (0.0-3.0) Basophils (%) (Auto) % (0.0-2.0) Differential Total Cells Counted 100 Neutrophils % (Manual) 89 % (45-75) H Lymphocytes % (Manual) 6 % (20-45) L Monocytes % (Manual) 4 % (1-10) Eosinophils % (Manual) 1 % (0-3) Basophils % (Manual) 0 % (0-2) Band Neutrophils 0 % (0-8) Platelet Estimate Decreased L Platelet Morphology Normal Hypochromasia 1+ Anisocytosis 1+ Vancomycin Level Trough 22.1 ug/mL (5.0-12.0) H Current Medications Medications (Trade) Dose Ordered Sig/Cirilo Route PRN Reason Start Time Stop Time Status Last Admin Dose Admin Acetaminophen (Tylenol) 650 mg Q4H PRN ORAL Mild Pain (Pain Scale 1-3) 02/22/20 14:15 03/23/20 14:14 02/27/20 16:48 Acetaminophen (Tylenol) 650 mg Q4H PRN ORAL Fever 02/22/20 14:15 03/23/20 14:14 Acetaminophen (Tylenol) 650 mg Q4H PRN RECTAL Mild Pain (Pain Scale 1-3) 02/22/20 14:15 03/23/20 14:14 02/22/20 21:28 Acetaminophen (Tylenol) 650 mg Q4H PRN RECTAL FEVER 02/22/20 14:15 03/23/20 14:14 Chlorhexidine Gluconate (Maira-Hex 2%) 1 applic DAILY@2000 TOPIC 02/23/20 20:00 05/23/20 19:59 02/26/20 20:19 Dextrose (Dextrose 50%) 25 ml Q30M PRN IV Hypoglycemia 02/23/20 09:00 05/23/20 08:59 Dextrose (Dextrose 50%) 50 ml Q30M PRN IV Hypoglycemia 02/23/20 09:00 05/23/20 08:59 Diphenhydramine HCl (Benadryl) 25 mg Q6H PRN ORAL Itching/Pruritis 02/22/20 14:15 03/23/20 14:14 02/26/20 01:34 Doxycycline Monohydrate (Doxycycline Monohydrate) 100 mg EVERY 12 HOURS ORAL 02/24/20 09:00 03/02/20 08:59 02/27/20 08:20 Enoxaparin Sodium (Lovenox) 40 mg Q24H SUBQ 02/22/20 17:00 05/22/20 16:59 02/24/20 17:37 Fentanyl Citrate 2500 mcg/Sodium Chloride 250 ml @ 0 mls/hr Q24H IV 02/23/20 10:00 03/01/20 09:59 02/27/20 16:42 Heparin Sodium/ Sodium Chloride (Heparin 1000 units/500ml Premix) 1,000 unit ONCE PRN IV PICC LINE PLACEMENT 02/26/20 10:15 02/28/20 10:14 Hydroxychloroquine Sulfate (Plaquenil) 200 mg Q12HR ORAL 02/25/20 09:00 02/28/20 21:01 02/27/20 08:20 Insulin Aspart (NovoLOG) Q6HR SUBQ 02/23/20 12:00 05/23/20 11:59 02/27/20 11:59 Lidocaine HCl (Xylocaine 1% 30ml) 30 ml ONCE PRN INJ PICC LINE PLACEMENT 02/26/20 10:15 02/28/20 10:14 Lorazepam (Ativan 2mg/ml 1ml) 1 mg Q6H PRN IV For Anxiety 02/26/20 08:30 03/04/20 08:29 Midazolam HCl 100 ml @ 0 mls/hr Q24H IV 02/26/20 15:06 05/26/20 15:05 02/26/20 15:48 Norepinephrine Bitartrate 8 mg/ Dextrose 500 ml @ 0 mls/hr Q24H IV 02/23/20 19:01 03/24/20 19:00 02/27/20 14:31 Pantoprazole (Protonix) 40 mg DAILY IVP 02/23/20 09:30 03/24/20 09:29 02/27/20 08:19 Piperacillin Sod/ Tazobactam Sod 3.375 gm/Dextrose 110 ml @ 27.5 mls/hr Q8H IVPB 02/23/20 01:00 03/01/20 00:59 02/27/20 16:41 Vancomycin HCl (Vanco rx to dose) 1 ea DAILY PRN MISC Per rx protocol 02/22/20 14:30 03/23/20 14:29 Vancomycin HCl 1 gm/Dextrose 275 ml @ 183.708 mls/hr Q8H IVPB 02/27/20 20:00 03/03/20 19:59 Anselmo Estrada MD February 27, 2020 20:08
[2020-02-27] MEDS: Vancomycin 1gm in D5W 275ml IVPB SCH (20:29)
[2020-02-27] MEDS: Dyna-Hex 2% Top Sol 2oz TOPIC SCH (20:29)
[2020-02-28] VITALS (46 sets, daily range): BP systolic 83–122; BP diastolic 49–74
[2020-02-28] MEDS: NovoLOG Insulin Flexpen SUBQ SCH ×4 (00:01→18:48)
[2020-02-28] MEDS: Piperacillin/Tazobactam 3.375 GM in D5W 110 ML IVPB SCH ×3 (01:17→17:51)
[2020-02-28] MEDS: Vancomycin 1gm in D5W 275ml IVPB SCH ×3 (03:36→21:00)
[2020-02-28] MEDS: Norepinephrine Bitartrate 8 MG in D5W 500ml 492 ML IV SCH ×3 (05:43→19:53)
[2020-02-28 06:36] LABS: HEMATOCRIT 29.5 % (42.0-52.0); HEMOGLOBIN 9.9 G/DL (14.2-18.0); MEAN CORPUSCULAR VOLUME 89 FL (80-99); PLATELET COUNT 23 K/UL (150-450); RED BLOOD COUNT 3.33 M/UL (4.70-6.10); RED CELL DISTRIBUTION WIDTH 14.5 % (11.6-14.8); WHITE BLOOD COUNT 7.5 K/UL (4.8-10.8)
[2020-02-28] MEDS: fentaNYL Citrate 2,500 MCG in NS 200 ML IV SCH ×2 (06:39→19:53)
[2020-02-28 07:09] LABS: ALANINE AMINOTRANSFERASE 30 U/L (12-78); ALBUMIN 1.1 G/DL (3.4-5.0); ALBUMIN/GLOBULIN RATIO 0.3 (1.0-2.7); ALKALINE PHOSPHATASE 85 U/L (46-116); ANION GAP 5 mmol/L (5-15); ASPARTATE AMINO TRANSFERASE 35 U/L (15-37); BILIRUBIN,TOTAL 12.7 MG/DL (0.2-1.0); BLOOD UREA NITROGEN 19 mg/dL (7-18); CALCIUM 6.8 MG/DL (8.5-10.1); CARBON DIOXIDE 30 MMOL/L (21-32); CHLORIDE 106 MMOL/L (98-107); CREATININE 0.6 MG/DL (0.55-1.30); POTASSIUM 3.4 MMOL/L (3.5-5.1); SODIUM 141 MMOL/L (136-145)
[2020-02-28 07:57] LABS: BILIRUBIN,DIRECT 11.1 MG/DL (0.0-0.3)
[2020-02-28] MEDS: Doxycycline Monohydrate 100mg ORAL SCH ×2 (08:50→21:29)
[2020-02-28] MEDS: Pantoprazole Inj IVP SCH (08:50)
--- NOTE | 2020-02-28 10:32 | General Progress Note ---
Assessment/Plan Assessment/Plan: 74 y/o M [place], PMH HTN, DMT2, dementia, Alzheimers dx, h/o CVA/TIA, h/o DVT, schizophrenia who presents for Fever. In the ED, pt found to be septic, Tm 100.9 , RR22, WBC 7.3, Lactic acid 2.8, and ABG revealed acute hypoxic respiratory failure. Pt was intubated and will be admitted to ICU for acute hypoxic respiratory failure and pending COVID r/o. #Septic shock 2/2 #Acute Hypoxic Respiratory Failure #HCAP #COVID positive #Lactic Acidosis -Appreciate ICU level care -pt intubated in ED, 02/21 -vent management per CCU team/Pulm, wean as tolerated -Cont. COVID isolation protocol -COVID PCR positive -elevated d-dimer and BNP likely 2/2 above -cont. pressure support, Levophed and Norepi, wean as tolerated -cont. fentanyl, versed for sedation, wean as tolerated -BCx diptheroids -echo ordered, on hold due to COVID -d/w Pulm, Dr. Bland -ID: plaquenil (end date 02/27, last dose today), vanc, zosyn, doxycycline #Jaundiced #Hyperbilirubinemia -elevated t bili, direct bili -AST/ALT normal -GI consulted, Dr. Howe, recs appreciated #Hypokalemia #Hypernatremia - improved -likely 2/2 dehydration -replace K, daily BMP, replace PRN -nephro following, recs appreciated #Type 2 DM -holding home metformin -accuchecks q6h -ISS changed from sensitive to moderate #HTN -holding home bp meds given septic shock -holding Lasix 20 mg q daily, benazepril 5 mg q daily #Alzheimer disease #Dementia #Schizophrenia #Bipolar dx -reviewed MAR from [place], no home meds for schizophrenia/bipolar dx noted -holding home aricept given clinical picture DVT PPx: lovenox Time spent: 57 mins, 31 mins spent on critical care time. Critical Care Services performed include: Telemetry Review Hemodynamic measurement interpretation Laboratory data review and interpretation Medication adjustments Discussion of patient's care with ICU team, Nursing staff, Heme, Dr. Verde, Dr. Howe. Time of note may not reflect time of encounter. Subjective Allergies: Coded Allergies: No Known Allergies (Unverified , 01/19/19) Subjective F/u for acute respiratory failure, COVID+, s/p intubation on 02/21. Currently on Levo, off vasotech. Pt sedated w/fentayl, off versed Pt appears jaundiced today. Plts dropped from 100 to 30's. Patient remains intubated, unable to obtain ROS due to clinical picture. Objective Last 24 Hour Vital Signs Date Time Temp Pulse Resp B/P (MAP) Pulse Ox O2 Delivery O2 Flow Rate FiO2 02/28/20 10:00 100 24 108/59 (75) 96 02/28/20 09:30 102 23 108/59 (75) 97 02/28/20 09:19 103 23 50 02/28/20 09:00 101 24 107/58 (74) 100 02/28/20 09:00 80 02/28/20 08:30 101 22 110/65 (80) 100 02/28/20 08:00 100 02/28/20 08:00 99.2 120 27 83/49 (60) 83 02/28/20 08:00 Mechanical Ventilator 02/28/20 07:30 103 19 106/61 (76) 88 02/28/20 07:20 99 26 50 02/28/20 07:00 95 24 110/58 (75) 94 02/28/20 06:39 22 Mechanical Ventilator 50 02/28/20 06:33 78 23 02/28/20 06:30 100 22 106/63 (77) 93 02/28/20 06:15 102 23 108/60 (76) 94 02/28/20 06:00 110/58 02/28/20 06:00 21 Mechanical Ventilator 50 02/28/20 06:00 102 23 108/58 (75) 93 02/28/20 05:43 114/65 02/28/20 05:30 107 25 114/65 (81) 93 02/28/20 05:30 80 19 50 02/28/20 05:00 109/64 02/28/20 05:00 20 Mechanical Ventilator 50 02/28/20 05:00 87 20 110/74 (86) 86 02/28/20 04:30 89 21 111/62 (78) 94 02/28/20 04:00 88 02/28/20 04:00 98.7 87 21 107/60 (76) 96 02/28/20 04:00 110/60 02/28/20 04:00 20 Mechanical Ventilator 50 02/28/20 04:00 50 02/28/20 04:00 Mechanical Ventilator 02/28/20 03:30 87 20 100/60 (73) 96 02/28/20 03:27 88 20 50 02/28/20 03:00 101/57 02/28/20 03:00 21 Mechanical Ventilator 50 02/28/20 03:00 86 20 99/60 (73) 94 02/28/20 02:30 88 20 101/60 (74) 95 02/28/20 02:00 88 20 97/57 (70) 97 02/28/20 02:00 99/58 02/28/20 02:00 20 Mechanical Ventilator 50 02/28/20 01:30 90 20 96/58 (71) 98 02/28/20 01:14 90 19 50 02/28/20 01:00 100/55 02/28/20 01:00 20 Mechanical Ventilator 50 02/28/20 01:00 91 20 100/55 (70) 97 02/28/20 00:30 89 20 102/55 (71) 97 02/28/20 00:00 50 02/28/20 00:00 98.9 88 20 104/62 (76) 98 02/28/20 00:00 88 02/28/20 00:00 Mechanical Ventilator 02/28/20 00:00 102/55 02/28/20 00:00 20 Mechanical Ventilator 50 02/27/20 23:30 92 20 102/58 (73) 96 02/27/20 23:25 84 16 50 02/27/20 23:02 102/58 02/27/20 23:00 90 20 102/58 (73) 97 02/27/20 23:00 21 Mechanical Ventilator 50 02/27/20 22:55 100/60 02/27/20 22:30 95 21 100/59 (73) 96 02/27/20 22:00 116 25 108/61 (77) 92 02/27/20 22:00 106/59 02/27/20 22:00 22 Mechanical Ventilator 50 02/27/20 21:30 106 24 111/52 (71) 91 02/27/20 21:15 96 22 50 5/2/20 21:00 107 20 91/48 (62) 93 20 21:00 112/58 5 21:00 23 Mechanical Ventilator 50 02/27/20 20:30 109 21 100/53 (69) 94 20 20:00 50 20 20:00 98.4 111 21 100/54 (69) 93 02/27/20 20:00 97/57 02/27/20 20:00 21 Mechanical Ventilator 50 02/27/20 20:00 111 02/27/20 20:00 Mechanical Ventilator 02/27/20 19:30 109 21 104/58 (73) 95 02/27/20 19:15 110 21 104/55 (71) 95 02/27/20 19:00 109 21 99/55 (70) 94 02/27/20 19:00 106 22 50 02/27/20 19:00 104/55 02/27/20 19:00 21 Mechanical Ventilator 50 02/27/20 18:30 108 25 92/48 (63) 93 02/27/20 18:00 106 21 92/49 (63) 99 02/27/20 18:00 92/49 02/27/20 18:00 20 Mechanical Ventilator 50 02/27/20 17:30 109 25 96/54 (68) 97 02/27/20 17:18 101.0 02/27/20 17:16 109 24 50 02/27/20 17:00 100/55 02/27/20 17:00 20 Mechanical Ventilator 50 02/27/20 17:00 104 25 100/55 (70) 97 02/27/20 16:42 20 Mechanical Ventilator 50 02/27/20 16:41 20 Mechanical Ventilator 50 02/27/20 16:30 104 25 99/60 (73) 96 02/27/20 16:00 Mechanical Ventilator 02/27/20 16:00 103 02/27/20 16:00 50 02/27/20 16:00 100/51 5 16:00 20 Mechanical Ventilator 50 02/27/20 16:00 100 23 100/51 (67) 97 02/27/20 15:30 99 22 67/38 (48) 96 02/27/20 15:06 20 Mechanical Ventilator 50 02/27/20 15:00 95/54 02/27/20 15:00 20 Mechanical Ventilator 50 02/27/20 15:00 96 22 96/53 (67) 95 02/27/20 14:49 94 22 50 02/27/20 14:31 96/55 02/27/20 14:30 94/52 02/27/20 14:30 98 21 92/54 (67) 95 02/27/20 14:00 96/55 02/27/20 14:00 20 Mechanical Ventilator 50 02/27/20 14:00 95 20 99/55 (70) 96 02/27/20 13:30 95 21 97/55 (69) 95 02/27/20 13:25 20 Mechanical Ventilator 60 02/27/20 13:20 20 Mechanical Ventilator 60 02/27/20 13:17 95 20 50 02/27/20 13:15 20 Mechanical Ventilator 60 02/27/20 13:10 20 Mechanical Ventilator 60 02/27/20 13:00 93 20 98/59 (72) 99 02/27/20 13:00 20 Mechanical Ventilator 60 02/27/20 13:00 99/57 02/27/20 13:00 20 Mechanical Ventilator 60 02/27/20 12:30 93 21 98/55 (69) 100 02/27/20 12:00 Mechanical Ventilator 02/27/20 12:00 50 02/27/20 12:00 20 Mechanical Ventilator 60 02/27/20 12:00 97/59 02/27/20 12:00 20 Mechanical Ventilator 60 02/27/20 12:00 99.0 93 21 100/59 (73) 98 02/27/20 12:00 82 02/27/20 11:30 92 22 99/57 (71) 97 02/27/20 11:00 20 Mechanical Ventilator 60 02/27/20 11:00 100/59 02/27/20 11:00 20 Mechanical Ventilator 60 02/27/20 11:00 90 20 97/59 (72) 98 02/27/20 10:49 60 02/27/20 10:45 95 20 60 02/27/20 10:45 89 20 100/59 (73) 100 Intake and Output 02/27/20 02/28/20 19:00 07:00 Intake Total 2162.725 ml 2315.416 ml Output Total 950 ml 845 ml Balance 1212.725 ml 1470.416 ml Free Water 150 ml 60 ml IV Total 1462.725 ml 1705.416 ml Tube Feeding 550 ml 550 ml Output Urine Total 950 ml 845 ml Stool Total 0 ml Laboratory Tests 02/27/20 14:45: White Blood Count 7.7, Red Blood Count 3.13L, Hemoglobin 9.5L, Hematocrit 27.6L , Mean Corpuscular Volume 88, Mean Corpuscular Hemoglobin 30.4, Mean Corpuscular Hemoglobin Concent 34.4, Red Cell Distribution Width 13.5, Platelet Count 35#L, Mean Platelet Volume 10.0, Neutrophils (%) (Auto) , Lymphocytes (%) (Auto) , Monocytes (%) (Auto) , Eosinophils (%) (Auto) , Basophils (%) (Auto) , Differential Total Cells Counted 100, Neutrophils % (Manual) 89H, Lymphocytes % (Manual) 6L, Monocytes % (Manual) 4, Eosinophils % (Manual) 1, Basophils % ( Manual) 0, Band Neutrophils 0, Platelet Estimate DecreasedL, Platelet Morphology Normal, Hypochromasia 1+, Anisocytosis 1+, Vancomycin Level Trough 22.1H 02/28/20 05:00: White Blood Count 7.5, Red Blood Count 3.33L, Hemoglobin 9.9L, Hematocrit 29.5L , Mean Corpuscular Volume 89, Mean Corpuscular Hemoglobin 29.7, Mean Corpuscular Hemoglobin Concent 33.5, Red Cell Distribution Width 14.5, Platelet Count 23L, Mean Platelet Volume 9.0, Neutrophils (%) (Auto) , Lymphocytes (%) ( Auto) , Monocytes (%) (Auto) , Eosinophils (%) (Auto) , Basophils (%) (Auto) , Neutrophils % (Manual) [Pending], Lymphocytes % (Manual) [Pending], Platelet Estimate [Pending], Platelet Morphology [Pending], Sodium Level 141, Potassium Level 3.4L, Chloride Level 106, Carbon Dioxide Level 30, Anion Gap 5, Blood Urea Nitrogen 19H, Creatinine 0.6, Estimat Glomerular Filtration Rate > 60, Glucose Level 243#H, Calcium Level 6.8L, Total Bilirubin 12.7H, Direct Bilirubin 11.1H, Aspartate Amino Transf (AST/SGOT) 35, Alanine Aminotransferase (ALT/SGPT) 30, Alkaline Phosphatase 85, Total Protein 4.7L, Albumin 1.1L, Globulin 3.6, Albumin/Globulin Ratio 0.3L Height (Feet): 5 Height (Inches): 5.00 Weight (Pounds): 120 Objective General: intubated, sedated, jaundiced HEENT: NCAT, ETT in place, OG tube in place CV: Sinus Tachycardic on tele Pulm: equal rise in lungs b/l GI: abd appears non-distended Ext: No lower extremity edema bilaterally Gosia Nunez M.D. February 28, 2020 10:32
--- NOTE | 2020-02-28 12:59 | Consultation ---
History of Present Illness General Chief Complaint: Upper Respiratory Illness Reason for Consultation: Hypernatremia, hyperchloremia Present Illness Allergies: Coded Allergies: No Known Allergies (Unverified , 01/19/19) Medication History Scheduled Benazepril Hcl (Benazepril Hcl), 5 MG ORAL DAILY, (Reported) Colesevelam Hcl (Welchol), 1,875 MG ORAL TWICE A DAY, (Reported) Docusate Sodium* (Colace*), 100 MG ORAL DAILY, (Reported) Donepezil Hcl* (Aricept*), 10 MG ORAL BEDTIME, (Reported) Furosemide* (Lasix*), 20 MG ORAL TWICE A DAY, (Reported) Insulin Regular, Human* (Novolin R*), 0 SUBQ .SLIDING SCALE, (Reported) Latanoprost/Pf (Latanoprost 0.005% Eye Drop), 1 DRP OP DAILY, (Reported) Metformin Hcl* (Metformin Hcl*), 500 MG ORAL THREE TIMES A DAY, (Reported) Multivitamins* (Multivitamins*), 1 TAB ORAL DAILY, (Reported) [Senna Tablet], 2 TAB PO PRN, (Reported) Scheduled PRN Acetaminophen* (Acetaminophen 325MG Tablet*), 650 MG ORAL Q4H PRN for Mild Pain/ Temp > 100.5, (Reported) Bisacodyl (Dulcolax), 10 MG RC DAILY PRN for Constipation, (Reported) Glucagon HCl (glucagon HCL), 1 MG IJ for Hypoglycemia, (Reported) Hydrocodone Bit/Acetaminophen 5-325* ([place] 5-325 Tablet*), 1 TAB ORAL Q4H PRN for For Pain, (Reported) Magnesium Hydroxide* (Milk Of Magnesia*), 30 ML ORAL QHS PRN for Constipation, ( Reported) Na Phos,M-B/Na Phos,Di-Ba* (Fleet Enema*), 133 ML RECTAL EVERY 2 DAYS PRN for Constipation, (Reported) Discontinued Medications [[place] 3 Fatty Acids], 1 MG PO TWICE A DAY, (Reported) Discontinued Reason: MD discontinued med Patient History Healthcare decision maker Resuscitation status Full Code Advanced Directive on File Physical Exam Last 24 Hour Vital Signs Date Time Temp Pulse Resp B/P (MAP) Pulse Ox O2 Delivery O2 Flow Rate FiO2 02/28/20 12:55 116/63 02/28/20 12:30 113 27 111/58 (75) 97 02/28/20 12:00 80 02/28/20 12:00 108 02/28/20 12:00 112 25 113/57 (75) 98 02/28/20 11:30 111 25 112/62 (79) 99 02/28/20 11:12 107 25 80 02/28/20 11:00 109 25 113/57 (75) 98 02/28/20 10:30 104 23 104/58 (73) 98 02/28/20 10:00 100 24 108/59 (75) 96 02/28/20 09:30 102 23 108/59 (75) 97 02/28/20 09:19 103 23 100 02/28/20 09:00 101 24 107/58 (74) 100 02/28/20 09:00 80 02/28/20 08:30 101 22 110/65 (80) 100 02/28/20 08:00 100 02/28/20 08:00 99.2 120 27 83/49 (60) 83 02/28/20 08:00 Mechanical Ventilator 02/28/20 08:00 107 02/28/20 07:30 103 19 106/61 (76) 88 02/28/20 07:20 99 26 50 02/28/20 07:00 95 24 110/58 (75) 94 02/28/20 06:39 22 Mechanical Ventilator 50 02/28/20 06:33 78 23 02/28/20 06:30 100 22 106/63 (77) 93 02/28/20 06:15 102 23 108/60 (76) 94 02/28/20 06:00 110/58 02/28/20 06:00 21 Mechanical Ventilator 50 02/28/20 06:00 102 23 108/58 (75) 93 02/28/20 05:43 114/65 02/28/20 05:30 107 25 114/65 (81) 93 02/28/20 05:30 80 19 50 02/28/20 05:00 109/64 02/28/20 05:00 20 Mechanical Ventilator 50 02/28/20 05:00 87 20 110/74 (86) 86 02/28/20 04:30 89 21 111/62 (78) 94 02/28/20 04:00 88 5/3/20 04:00 98.7 87 21 107/60 (76) 96 02/28/20 04:00 110/60 02/28/20 04:00 20 Mechanical Ventilator 50 02/28/20 04:00 50 02/28/20 04:00 Mechanical Ventilator 02/28/20 03:30 87 20 100/60 (73) 96 02/28/20 03:27 88 20 50 02/28/20 03:00 101/57 02/28/20 03:00 21 Mechanical Ventilator 50 02/28/20 03:00 86 20 99/60 (73) 94 02/28/20 02:30 88 20 101/60 (74) 95 02/28/20 02:00 88 20 97/57 (70) 97 02/28/20 02:00 99/58 02/28/20 02:00 20 Mechanical Ventilator 50 02/28/20 01:30 90 20 96/58 (71) 98 02/28/20 01:14 90 19 50 02/28/20 01:00 100/55 02/28/20 01:00 20 Mechanical Ventilator 50 02/28/20 01:00 91 20 100/55 (70) 97 02/28/20 00:30 89 20 102/55 (71) 97 02/28/20 00:00 50 02/28/20 00:00 98.9 88 20 104/62 (76) 98 02/28/20 00:00 88 02/28/20 00:00 Mechanical Ventilator 02/28/20 00:00 102/55 02/28/20 00:00 20 Mechanical Ventilator 50 02/27/20 23:30 92 20 102/58 (73) 96 02/27/20 23:25 84 16 50 02/27/20 23:02 102/58 02/27/20 23:00 90 20 102/58 (73) 97 02/27/20 23:00 21 Mechanical Ventilator 50 02/27/20 22:55 100/60 02/27/20 22:30 95 21 100/59 (73) 96 02/27/20 22:00 116 25 108/61 (77) 92 02/27/20 22:00 106/59 02/27/20 22:00 22 Mechanical Ventilator 50 02/27/20 21:30 106 24 111/52 (71) 91 02/27/20 21:15 96 22 50 5/2/20 21:00 107 20 91/48 (62) 93 20 21:00 112/58 520 21:00 23 Mechanical Ventilator 50 20 20:30 109 21 100/53 (69) 94 20 20:00 50 02/26/20 20:00 98.4 111 21 100/54 (69) 93 20 20:00 97/57 5 20:00 21 Mechanical Ventilator 50 02/27/20 20:00 111 20 20:00 Mechanical Ventilator 02/27/20 19:30 109 21 104/58 (73) 95 20 19:15 110 21 104/55 (71) 95 02/27/20 19:00 109 21 99/55 (70) 94 02/27/20 19:00 106 22 50 20 19:00 104/55 02/27/20 19:00 21 Mechanical Ventilator 50 02/27/20 18:30 108 25 92/48 (63) 93 02/27/20 18:00 106 21 92/49 (63) 99 02/27/20 18:00 92/49 02/27/20 18:00 20 Mechanical Ventilator 50 02/27/20 17:30 109 25 96/54 (68) 97 02/27/20 17:18 101.0 02/27/20 17:16 109 24 50 02/27/20 17:00 100/55 20 17:00 20 Mechanical Ventilator 50 02/27/20 17:00 104 25 100/55 (70) 97 02/27/20 16:42 20 Mechanical Ventilator 50 02/27/20 16:41 20 Mechanical Ventilator 50 20 16:30 104 25 99/60 (73) 96 02/27/20 16:00 Mechanical Ventilator 02/27/20 16:00 103 02/27/20 16:00 50 20 16:00 100/51 5 16:00 20 Mechanical Ventilator 50 20 16:00 100 23 100/51 (67) 97 02/27/20 15:30 99 22 67/38 (48) 96 02/27/20 15:06 20 Mechanical Ventilator 50 02/27/20 15:00 95/54 5/2/20 15:00 20 Mechanical Ventilator 50 02/27/20 15:00 96 22 96/53 (67) 95 02/27/20 14:49 94 22 50 02/27/20 14:31 96/55 02/27/20 14:30 94/52 02/27/20 14:30 98 21 92/54 (67) 95 02/27/20 14:00 96/55 02/27/20 14:00 20 Mechanical Ventilator 50 02/27/20 14:00 95 20 99/55 (70) 96 02/27/20 13:30 95 21 97/55 (69) 95 02/27/20 13:25 20 Mechanical Ventilator 60 02/27/20 13:20 20 Mechanical Ventilator 60 02/27/20 13:17 95 20 50 02/27/20 13:15 20 Mechanical Ventilator 60 02/27/20 13:10 20 Mechanical Ventilator 60 02/27/20 13:00 93 20 98/59 (72) 99 02/27/20 13:00 20 Mechanical Ventilator 60 02/27/20 13:00 99/57 02/27/20 13:00 20 Mechanical Ventilator 60 Intake and Output 02/27/20 02/28/20 19:00 07:00 Intake Total 2162.725 ml 2315.416 ml Output Total 950 ml 845 ml Balance 1212.725 ml 1470.416 ml Free Water 150 ml 60 ml IV Total 1462.725 ml 1705.416 ml Tube Feeding 550 ml 550 ml Output Urine Total 950 ml 845 ml Stool Total 0 ml Laboratory Tests Test 02/27/20 14:45 02/28/20 05:00 White Blood Count 7.7 K/UL (4.8-10.8) 7.5 K/UL (4.8-10.8) Red Blood Count 3.13 M/UL (4.70-6.10) L 3.33 M/UL (4.70-6.10) L Hemoglobin 9.5 G/DL (14.2-18.0) L 9.9 G/DL (14.2-18.0) L Hematocrit 27.6 % (42.0-52.0) L 29.5 % (42.0-52.0) L Mean Corpuscular Volume 88 FL (80-99) 89 FL (80-99) Mean Corpuscular Hemoglobin 30.4 PG (27.0-31.0) 29.7 PG (27.0-31.0) Mean Corpuscular Hemoglobin Concent 34.4 G/DL (32.0-36.0) 33.5 G/DL (32.0-36.0) Red Cell Distribution Width 13.5 % (11.6-14.8) 14.5 % (11.6-14.8) Platelet Count 35 K/UL (150-450) #L 23 K/UL (150-450) L Mean Platelet Volume 10.0 FL (6.5-10.1) 9.0 FL (6.5-10.1) Neutrophils (%) (Auto) % (45.0-75.0) % (45.0-75.0) Lymphocytes (%) (Auto) % (20.0-45.0) % (20.0-45.0) Monocytes (%) (Auto) % (1.0-10.0) % (1.0-10.0) Eosinophils (%) (Auto) % (0.0-3.0) % (0.0-3.0) Basophils (%) (Auto) % (0.0-2.0) % (0.0-2.0) Differential Total Cells Counted 100 Neutrophils % (Manual) 89 % (45-75) H Pending Lymphocytes % (Manual) 6 % (20-45) L Pending Monocytes % (Manual) 4 % (1-10) Eosinophils % (Manual) 1 % (0-3) Basophils % (Manual) 0 % (0-2) Band Neutrophils 0 % (0-8) Platelet Estimate Decreased L Pending Platelet Morphology Normal Pending Hypochromasia 1+ Anisocytosis 1+ Vancomycin Level Trough 22.1 ug/mL (5.0-12.0) H Sodium Level 141 MMOL/L (136-145) Potassium Level 3.4 MMOL/L (3.5-5.1) L Chloride Level 106 MMOL/L (98-107) Carbon Dioxide Level 30 MMOL/L (21-32) Anion Gap 5 mmol/L (5-15) Blood Urea Nitrogen 19 mg/dL (7-18) H Creatinine 0.6 MG/DL (0.55-1.30) Estimat Glomerular Filtration Rate > 60 mL/min (>60) Glucose Level 243 MG/DL (74-106) #H Calcium Level 6.8 MG/DL (8.5-10.1) L Total Bilirubin 12.7 MG/DL (0.2-1.0) H Direct Bilirubin 11.1 MG/DL (0.0-0.3) H Aspartate Amino Transf (AST/SGOT) 35 U/L (15-37) Alanine Aminotransferase (ALT/SGPT) 30 U/L (12-78) Alkaline Phosphatase 85 U/L (46-116) Total Protein 4.7 G/DL (6.4-8.2) L Albumin 1.1 G/DL (3.4-5.0) L Globulin 3.6 g/dL Albumin/Globulin Ratio 0.3 (1.0-2.7) L Height (Feet): 5 Height (Inches): 5.00 Weight (Pounds): 120 Medications Current Medications Medications (Trade) Dose Ordered Sig/Cirilo Route PRN Reason Start Time Stop Time Status Last Admin Dose Admin Acetaminophen (Tylenol) 650 mg Q4H PRN ORAL Mild Pain (Pain Scale 1-3) 02/22/20 14:15 03/23/20 14:14 02/27/20 16:48 Acetaminophen (Tylenol) 650 mg Q4H PRN ORAL Fever 02/22/20 14:15 03/23/20 14:14 Acetaminophen (Tylenol) 650 mg Q4H PRN RECTAL Mild Pain (Pain Scale 1-3) 02/22/20 14:15 03/23/20 14:14 02/22/20 21:28 Acetaminophen (Tylenol) 650 mg Q4H PRN RECTAL FEVER 02/22/20 14:15 03/23/20 14:14 Chlorhexidine Gluconate (Maira-Hex 2%) 1 applic DAILY@1999 TOPIC 02/23/20 20:00 05/23/20 19:59 02/27/20 20:29 Dextrose (Dextrose 50%) 25 ml Q30M PRN IV Hypoglycemia 02/23/20 09:00 05/23/20 08:59 Dextrose (Dextrose 50%) 50 ml Q30M PRN IV Hypoglycemia 02/23/20 09:00 05/23/20 08:59 Diphenhydramine HCl (Benadryl) 25 mg Q6H PRN ORAL Itching/Pruritis 02/22/20 14:15 03/23/20 14:14 02/26/20 01:34 Doxycycline Monohydrate (Doxycycline Monohydrate) 100 mg EVERY 12 HOURS ORAL 02/24/20 09:00 03/02/20 08:59 02/28/20 08:50 Enoxaparin Sodium (Lovenox) 40 mg Q24H SUBQ 02/22/20 17:00 05/22/20 16:59 02/24/20 17:37 Fentanyl Citrate 2500 mcg/Sodium Chloride 250 ml @ 0 mls/hr Q24H IV 02/23/20 10:00 03/01/20 09:59 02/28/20 06:39 Hydroxychloroquine Sulfate (Plaquenil) 200 mg Q12HR ORAL 02/25/20 09:00 02/28/20 21:01 02/28/20 08:50 Insulin Aspart (NovoLOG) Q6HR SUBQ 02/28/20 18:00 05/28/20 17:59 Lorazepam (Ativan 2mg/ml 1ml) 1 mg Q6H PRN IV For Anxiety 02/26/20 08:30 03/04/20 08:29 Midazolam HCl 100 ml @ 0 mls/hr Q24H IV 02/26/20 15:06 05/26/20 15:05 02/26/20 15:48 Norepinephrine Bitartrate 8 mg/ Dextrose 500 ml @ 0 mls/hr Q24H IV 02/23/20 19:01 03/24/20 19:00 02/28/20 12:55 Pantoprazole (Protonix) 40 mg DAILY IVP 02/23/20 09:30 03/24/20 09:29 02/28/20 08:50 Piperacillin Sod/ Tazobactam Sod 3.375 gm/Dextrose 110 ml @ 27.5 mls/hr Q8H IVPB 02/23/20 01:00 03/01/20 00:59 02/28/20 08:51 Vancomycin HCl (Vanco rx to dose) 1 ea DAILY PRN MISC Per rx protocol 02/22/20 14:30 03/23/20 14:29 Vancomycin HCl 1 gm/Dextrose 275 ml @ 183.708 mls/hr Q8H IVPB 02/27/20 20:00 03/03/20 19:59 02/28/20 12:06 Assessment/Plan Assessment/Plan: Heme Consultation Note REQ : Beatrice Arana RFC: low platelets and Anemia DOS ID [id number] y/o M from [place], PMH HTN, DMT2, dementia, Alzheimers dx, h/o CVA/TIA, h/o DVT, schizophrenia who presents for Fever. Pt had respiratory distress and was intubated in ED, history limited and obtained via chart review and speaking w/ nurse from [place]. Per Nurse, pt at [facility] is AO sometimes to self and place, but has severe dementia requiring assistance w/all ADLs, is wheelchair bound. Pt had an acute change in mental status, was more confused this AM and noted ot have fever 100.3 at the facily for which pt was sent to the ED for further evaluation. Per nurse, no reports of cough, CP, SOB, abd pain, diarrhea noted. No other residents at the [place] facility have been tested positive for COVID at this time. In the ED, pt found to be septic, Tm 100.9, RR22, WBC 7.3, Lactic acid 2.8, and ABG revealed acute hypoxic respiratory failure. Pt was intubated and will be admitted to ICU for acute hypoxic respiratory failure and pending COVID r/o. Noted now to have a dropping plt count and heme was consulted for eval PMH: HTN, DMT2, dementia, Alzheimers dx, h/o CVA/TIA, h/o DVT, schizophrenia, bipolar FH: reviewed, unable to obtain Sx: unable to obtain SH: lives in [place], [facility], has been long time resident >5 yrs Allergies: NKDA Allergies: Coded Allergies: No Known Allergies (Unverified , 01/19/19) COVID-19 Screening Contact w/high risk pt: Yes Recent Travel to affected area: No Experienced COVID-19 symptoms?: Yes COVID-19 symptoms experienced: Fever (T>100.4F or >38C), Shortness of Breath, Cough Medication History Scheduled Benazepril Hcl (Benazepril Hcl), 5 MG ORAL DAILY, (Reported) Colesevelam Hcl (Welchol), 1,875 MG ORAL TWICE A DAY, (Reported) Docusate Sodium* (Colace*), 100 MG ORAL DAILY, (Reported) Donepezil Hcl* (Aricept*), 10 MG ORAL BEDTIME, (Reported) Furosemide* (Lasix*), 20 MG ORAL TWICE A DAY, (Reported) Insulin Regular, Human* (Novolin R*), 0 SUBQ .SLIDING SCALE, (Reported) Latanoprost/Pf (Latanoprost 0.005% Eye Drop), 1 DRP OP DAILY, (Reported) Metformin Hcl* (Metformin Hcl*), 500 MG ORAL THREE TIMES A DAY, (Reported) Multivitamins* (Multivitamins*), 1 TAB ORAL DAILY, (Reported) [Senna Tablet], 2 TAB PO PRN, (Reported) Scheduled PRN Acetaminophen* (Acetaminophen 325MG Tablet*), 650 MG ORAL Q4H PRN for Mild Pain/ Temp > 100.5, (Reported) Bisacodyl (Dulcolax), 10 MG RC DAILY PRN for Constipation, (Reported) Glucagon HCl (glucagon HCL), 1 MG IJ for Hypoglycemia, (Reported) Hydrocodone Bit/Acetaminophen 5-325* ([place] 5-325 Tablet*), 1 TAB ORAL Q4H PRN for For Pain, (Reported) Magnesium Hydroxide* (Milk Of Magnesia*), 30 ML ORAL QHS PRN for Constipation, ( Reported) Na Phos,M-B/Na Phos,Di-Ba* (Fleet Enema*), 133 ML RECTAL EVERY 2 DAYS PRN for Constipation, (Reported) Miscellaneous Medications Fluocinonide/Emollient (Fluocinonide-E 0.05% Cream), 15 GM TP, (Reported) Discontinued Medications [[place] 3 Fatty Acids], 1 MG PO TWICE A DAY, (Reported) Discontinued Reason: MD discontinued med Patient History Healthcare decision maker Resuscitation status Review of Systems ROS Narrative Unable to obtain, patient is intubated/sedated. Physical Exam: Vitals: reviewed General: NAD HEENT: nc, at Neck: supple Chest: in the icu, remains intubated++ Cardiovascular: RRR, no s3, s4 Abdomen: soft, nontender, nd Extremities: no cce, normal range of motion Neuro: alert to self Labs: noted Assessment and Recs # Thrombocytopenia - potential causes multifactorial, evaluate liver and viral etiologies to begin, in this particular case, given mosf, is due to [id number], has had hyperbilirubinemia, has received heparin and zosyn both culprits as well --> Hep panel and HIV ordered --> US abd to evaluate for cirrhosis and hsm ordered ->when covid is negative --> Peripheral smear ordered to evaluate for blasts /schistocytes --> abx and other meds have been reviewed --> ok for ppx if plt >50k w/ either heparin or lovenox --> Transfuse if Plt < 20k and fever, or if Plt < 10k without fever --> off heparin now, have ordered for hit-pf4 antibody test # Anemia of chronic disease due to underlying chronic medical issues, multifactorial v Gi bleed --> Anemia workup has been ordered, rule out gi bleed --> No evidence of hemolysis is noted, peripheral smear has been reviewed. --> Hgb goal >7. Transfuse prn. --> Epogen or iron at this time is not particularly indicated --> Medications have been reviewed --> low threshold for gi evaluation in case has occult + --> bone marrow biopsy is not indicated given the other more likely causes # Septic shock 2/2 due to covid 19 --> on abx as per id # Acute Hypoxic Respiratory Failure --> now s/p vent --> in icu # HCAP COVID positive --> abx, plaq and supp care # Jaundiced with Hyperbilirubinemia --> per gi # Schizophrenia # Bipolar dx # Dvt ppx scds The timing of this note does not necessarily reflect the time of the patient was seen. Greatly appreciate consultation. Montez Verde MD February 28, 2020 12:59
[2020-02-28] MEDS ORDERED: NS 275ml ONE (14:14)
[2020-02-28] MEDS ORDERED: Tubing IV Secondary IV ONE ×2 (14:14→15:57)
[2020-02-28] MEDS: Enoxaparin 40mg Inj SUBQ SCH (17:00)
--- NOTE | 2020-02-28 17:21 | Pulmonology Progress Note ---
Assessment/Plan Assessment/Plan IMPRESSION: 1. Respiratory failure. 2. Bilateral pneumonia. + COVID 19 3. Pulmonary edema. 4. Diabetes mellitus. DISCUSSION: Positive COVID 19 pcr The patient is critically ill at this point in time. Increasing pressor requirements Noted Cardiology consultation. Continue broad-spectrum antibiotics. Continue respiratory support; will adjust vent settings I will follow carefully. Andrea Bland M.D. Subjective ROS Limited/Unobtainable: Yes Interval Events: Remains intubtaed; was intubated on 02/22/20 Constitutional: Reports: fever, other - on vent and pressors HEENT: Repors: no symptoms Respiratory: Reports: no symptoms Cardiovascular: Reports: no symptoms Gastrointestinal/Abdominal: Denies: nausea, vomiting, diarrhea Genitourinary: Reports: no symptoms Psychiatric: Reports: other - NA Skin: Denies: rash Endocrine: Reports: no symptoms Musculoskeletal: Reports: other - NA Allergies: Coded Allergies: No Known Allergies (Unverified , 01/19/19) Subjective seen and evaluated Discussed with RN Objective Last 24 Hour Vital Signs Date Time Temp Pulse Resp B/P (MAP) Pulse Ox O2 Delivery O2 Flow Rate FiO2 02/28/20 17:03 94 21 60 02/28/20 16:30 93 18 102/57 (72) 100 02/28/20 16:00 98 02/28/20 16:00 Mechanical Ventilator 02/28/20 16:00 80 02/28/20 16:00 98 23 101/56 (71) 99 02/28/20 15:30 100 23 102/54 (70) 99 02/28/20 15:00 103 22 104/62 (76) 98 02/28/20 14:55 106 22 80 02/28/20 14:30 104 22 102/55 (71) 98 02/28/20 14:00 105 24 102/55 (71) 95 02/28/20 13:30 107 24 107/55 (72) 95 02/28/20 13:18 106 24 80 02/28/20 13:00 108 24 93/56 (68) 98 02/28/20 12:55 116/63 02/28/20 12:30 113 27 111/58 (75) 97 02/28/20 12:00 80 02/28/20 12:00 Mechanical Ventilator 02/28/20 12:00 108 02/28/20 12:00 112 25 113/57 (75) 98 02/28/20 11:30 111 25 112/62 (79) 99 02/28/20 11:12 107 25 80 02/28/20 11:00 109 25 113/57 (75) 98 02/28/20 10:30 104 23 104/58 (73) 98 02/28/20 10:00 100 24 108/59 (75) 96 02/28/20 09:30 102 23 108/59 (75) 97 02/28/20 09:19 103 23 100 02/28/20 09:00 101 24 107/58 (74) 100 02/28/20 09:00 80 02/28/20 08:30 101 22 110/65 (80) 100 02/28/20 08:00 100 02/28/20 08:00 99.2 120 27 83/49 (60) 83 02/28/20 08:00 Mechanical Ventilator 02/28/20 08:00 107 02/28/20 07:30 103 19 106/61 (76) 88 02/28/20 07:20 99 26 50 02/28/20 07:00 95 24 110/58 (75) 94 02/28/20 06:39 22 Mechanical Ventilator 50 02/28/20 06:33 78 23 02/28/20 06:30 100 22 106/63 (77) 93 02/28/20 06:15 102 23 108/60 (76) 94 02/28/20 06:00 110/58 02/28/20 06:00 21 Mechanical Ventilator 50 02/28/20 06:00 102 23 108/58 (75) 93 02/28/20 05:43 114/65 02/28/20 05:30 107 25 114/65 (81) 93 02/28/20 05:30 80 19 50 02/28/20 05:00 109/64 02/28/20 05:00 20 Mechanical Ventilator 50 02/28/20 05:00 87 20 110/74 (86) 86 02/28/20 04:30 89 21 111/62 (78) 94 02/28/20 04:00 88 5/3/20 04:00 98.7 87 21 107/60 (76) 96 02/28/20 04:00 110/60 02/28/20 04:00 20 Mechanical Ventilator 50 02/28/20 04:00 50 02/28/20 04:00 Mechanical Ventilator 02/28/20 03:30 87 20 100/60 (73) 96 02/28/20 03:27 88 20 50 02/28/20 03:00 101/57 02/28/20 03:00 21 Mechanical Ventilator 50 02/28/20 03:00 86 20 99/60 (73) 94 02/28/20 02:30 88 20 101/60 (74) 95 02/28/20 02:00 88 20 97/57 (70) 97 02/28/20 02:00 99/58 02/28/20 02:00 20 Mechanical Ventilator 50 02/28/20 01:30 90 20 96/58 (71) 98 02/28/20 01:14 90 19 50 02/28/20 01:00 100/55 02/28/20 01:00 20 Mechanical Ventilator 50 02/28/20 01:00 91 20 100/55 (70) 97 02/28/20 00:30 89 20 102/55 (71) 97 02/28/20 00:00 50 02/28/20 00:00 98.9 88 20 104/62 (76) 98 02/28/20 00:00 88 02/28/20 00:00 Mechanical Ventilator 02/28/20 00:00 102/55 02/28/20 00:00 20 Mechanical Ventilator 50 02/27/20 23:30 92 20 102/58 (73) 96 02/27/20 23:25 84 16 50 02/27/20 23:02 102/58 02/27/20 23:00 90 20 102/58 (73) 97 02/27/20 23:00 21 Mechanical Ventilator 50 02/27/20 22:55 100/60 02/27/20 22:30 95 21 100/59 (73) 96 02/27/20 22:00 116 25 108/61 (77) 92 02/27/20 22:00 106/59 02/27/20 22:00 22 Mechanical Ventilator 50 02/27/20 21:30 106 24 111/52 (71) 91 02/27/20 21:15 96 22 50 02/27/20 21:00 107 20 91/48 (62) 93 02/27/20 21:00 112/58 02/27/20 21:00 23 Mechanical Ventilator 50 02/27/20 20:30 109 21 100/53 (69) 94 02/27/20 20:00 50 02/27/20 20:00 98.4 111 21 100/54 (69) 93 02/27/20 20:00 97/57 02/27/20 20:00 21 Mechanical Ventilator 50 02/27/20 20:00 111 02/27/20 20:00 Mechanical Ventilator 02/27/20 19:30 109 21 104/58 (73) 95 02/27/20 19:15 110 21 104/55 (71) 95 02/27/20 19:00 109 21 99/55 (70) 94 02/27/20 19:00 106 22 50 02/27/20 19:00 104/55 02/27/20 19:00 21 Mechanical Ventilator 50 02/27/20 18:30 108 25 92/48 (63) 93 02/27/20 18:00 106 21 92/49 (63) 99 02/27/20 18:00 92/49 02/27/20 18:00 20 Mechanical Ventilator 50 02/27/20 17:30 109 25 96/54 (68) 97 Intake and Output 02/27/20 02/28/20 19:00 07:00 Intake Total 2162.725 ml 2315.416 ml Output Total 950 ml 845 ml Balance 1212.725 ml 1470.416 ml Free Water 150 ml 60 ml IV Total 1462.725 ml 1705.416 ml Tube Feeding 550 ml 550 ml Output Urine Total 950 ml 845 ml Stool Total 0 ml General Appearance: no acute distress HEENT: normocephalic, atraumatic, anicteric, other - oral - intubated Respiratory/Chest: chest wall non-tender, decreased breath sounds Cardiovascular: normal peripheral pulses Abdomen: normal bowel sounds, soft, non tender, no organomegaly, non distended Genitourinary: other - + rush - urine clear Extremities: no cyanosis Skin: no rash Neurologic/Psychiatric: other - weak, sedated Lymphatic: no neck adenopathy Musculoskeletal: no effusion Laboratory Tests 02/28/20 05:00: White Blood Count 7.5, Red Blood Count 3.33L, Hemoglobin 9.9L, Hematocrit 29.5L , Mean Corpuscular Volume 89, Mean Corpuscular Hemoglobin 29.7, Mean Corpuscular Hemoglobin Concent 33.5, Red Cell Distribution Width 14.5, Platelet Count 23L, Mean Platelet Volume 9.0, Neutrophils (%) (Auto) , Lymphocytes (%) ( Auto) , Monocytes (%) (Auto) , Eosinophils (%) (Auto) , Basophils (%) (Auto) , Differential Total Cells Counted 100, Neutrophils % (Manual) 86H, Lymphocytes % (Manual) 10L, Monocytes % (Manual) 4, Eosinophils % (Manual) 0, Basophils % ( Manual) 0, Band Neutrophils 0, Platelet Estimate DecreasedL, Platelet Morphology Normal, Anisocytosis 1+, Macrocytosis 1+, Sodium Level 141, Potassium Level 3.4L, Chloride Level 106, Carbon Dioxide Level 30, Anion Gap 5, Blood Urea Nitrogen 19H, Creatinine 0.6, Estimat Glomerular Filtration Rate > 60 , Glucose Level 243#H, Calcium Level 6.8L, Total Bilirubin 12.7H, Direct Bilirubin 11.1H, Aspartate Amino Transf (AST/SGOT) 35, Alanine Aminotransferase (ALT/SGPT) 30, Alkaline Phosphatase 85, Total Protein 4.7L, Albumin 1.1L, Globulin 3.6, Albumin/Globulin Ratio 0.3L, HIV (1&2) Antibody Rapid Negative 02/28/20 16:00: Vancomycin Level Trough 29.2H, Heparin-PF4 Antibody Screen [Pending], Hepatitis A IgM Antibody [Pending], Hepatitis B Surface Antigen [Pending], Hepatitis B Core IgM Antibody [Pending], Hepatitis C Antibody [Pending] Current Medications Medications (Trade) Dose Ordered Sig/Cirilo Route PRN Reason Start Time Stop Time Status Last Admin Dose Admin Acetaminophen (Tylenol) 650 mg Q4H PRN ORAL Mild Pain (Pain Scale 1-3) 02/22/20 14:15 03/23/20 14:14 02/27/20 16:48 Acetaminophen (Tylenol) 650 mg Q4H PRN ORAL Fever 02/22/20 14:15 03/23/20 14:14 Acetaminophen (Tylenol) 650 mg Q4H PRN RECTAL Mild Pain (Pain Scale 1-3) 02/22/20 14:15 03/23/20 14:14 02/22/20 21:28 Acetaminophen (Tylenol) 650 mg Q4H PRN RECTAL FEVER 02/22/20 14:15 03/23/20 14:14 Chlorhexidine Gluconate (Maira-Hex 2%) 1 applic DAILY@2000 TOPIC 02/23/20 20:00 05/23/20 19:59 02/27/20 20:29 Dextrose (Dextrose 50%) 25 ml Q30M PRN IV Hypoglycemia 02/23/20 09:00 05/23/20 08:59 Dextrose (Dextrose 50%) 50 ml Q30M PRN IV Hypoglycemia 02/23/20 09:00 05/23/20 08:59 Diphenhydramine HCl (Benadryl) 25 mg Q6H PRN ORAL Itching/Pruritis 02/22/20 14:15 03/23/20 14:14 02/26/20 01:34 Doxycycline Monohydrate (Doxycycline Monohydrate) 100 mg EVERY 12 HOURS ORAL 02/24/20 09:00 03/02/20 08:59 02/28/20 08:50 Enoxaparin Sodium (Lovenox) 40 mg Q24H SUBQ 02/22/20 17:00 05/22/20 16:59 02/24/20 17:37 Fentanyl Citrate 2500 mcg/Sodium Chloride 250 ml @ 0 mls/hr Q24H IV 02/23/20 10:00 03/01/20 09:59 02/28/20 06:39 Hydroxychloroquine Sulfate (Plaquenil) 200 mg Q12HR ORAL 02/25/20 09:00 02/28/20 21:01 02/28/20 08:50 Insulin Aspart (NovoLOG) Q6HR SUBQ 02/28/20 18:00 05/28/20 17:59 Lorazepam (Ativan 2mg/ml 1ml) 1 mg Q6H PRN IV For Anxiety 02/26/20 08:30 03/04/20 08:29 Midazolam HCl 100 ml @ 0 mls/hr Q24H IV 02/26/20 15:06 05/26/20 15:05 02/26/20 15:48 Norepinephrine Bitartrate 8 mg/ Dextrose 500 ml @ 0 mls/hr Q24H IV 02/23/20 19:01 03/24/20 19:00 02/28/20 12:55 Pantoprazole (Protonix) 40 mg DAILY IVP 02/23/20 09:30 03/24/20 09:29 02/28/20 08:50 Piperacillin Sod/ Tazobactam Sod 3.375 gm/Dextrose 110 ml @ 27.5 mls/hr Q8H IVPB 02/23/20 01:00 03/01/20 00:59 02/28/20 08:51 Vancomycin HCl (Vanco rx to dose) 1 ea DAILY PRN MISC Per rx protocol 02/22/20 14:30 03/23/20 14:29 Vancomycin HCl 1 gm/Dextrose 275 ml @ 183.708 mls/hr Q8H IVPB 02/28/20 21:00 03/04/20 20:59 Andrea Bland MD February 28, 2020 17:21
--- NOTE | 2020-02-28 18:16 | Nephrology Progress Note ---
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 # h/o DVT # schizophrenia, bipolar - replete lytes, phos and K prn - continue icu care - monitor off IVF - replete lytes prn - vasopressor per pulmonary - antibiotics per ICU - trend lactic acid - follow cx - vent management per pulmonary - monitor lytes - BG control - hold antihypertensive Subjective ROS Limited/Unobtainable: Yes Subjective lytes reviewed K low repleted on levo 20 T bili 12.7 remains intubated Objective Objective Last 24 Hour Vital Signs Date Time Temp Pulse Resp B/P (MAP) Pulse Ox O2 Delivery O2 Flow Rate FiO2 02/28/20 18:00 103 24 117/64 (81) 95 02/28/20 17:30 102 24 118/64 (82) 94 02/28/20 17:03 94 21 60 02/28/20 17:00 100.5 96 23 113/66 (82) 95 02/28/20 16:30 93 18 102/57 (72) 100 02/28/20 16:00 98 02/28/20 16:00 Mechanical Ventilator 02/28/20 16:00 80 02/28/20 16:00 98 23 101/56 (71) 99 02/28/20 15:30 100 23 102/54 (70) 99 02/28/20 15:00 103 22 104/62 (76) 98 02/28/20 14:55 106 22 80 02/28/20 14:30 104 22 102/55 (71) 98 02/28/20 14:00 105 24 102/55 (71) 95 02/28/20 13:30 107 24 107/55 (72) 95 02/28/20 13:18 106 24 80 02/28/20 13:00 108 24 93/56 (68) 98 02/28/20 12:55 116/63 02/28/20 12:30 113 27 111/58 (75) 97 02/28/20 12:00 80 02/28/20 12:00 Mechanical Ventilator 5/3/20 12:00 108 02/28/20 12:00 112 25 113/57 (75) 98 02/28/20 11:30 111 25 112/62 (79) 99 02/28/20 11:12 107 25 80 02/28/20 11:00 109 25 113/57 (75) 98 02/28/20 10:30 104 23 104/58 (73) 98 02/28/20 10:00 100 24 108/59 (75) 96 02/28/20 09:30 102 23 108/59 (75) 97 02/28/20 09:19 103 23 100 02/28/20 09:00 101 24 107/58 (74) 100 02/28/20 09:00 80 02/28/20 08:30 101 22 110/65 (80) 100 02/28/20 08:00 100 02/28/20 08:00 99.2 120 27 83/49 (60) 83 02/28/20 08:00 Mechanical Ventilator 02/28/20 08:00 107 02/28/20 07:30 103 19 106/61 (76) 88 02/28/20 07:20 99 26 50 02/28/20 07:00 95 24 110/58 (75) 94 02/28/20 06:39 22 Mechanical Ventilator 50 02/28/20 06:33 78 23 02/28/20 06:30 100 22 106/63 (77) 93 02/28/20 06:15 102 23 108/60 (76) 94 02/28/20 06:00 110/58 02/28/20 06:00 21 Mechanical Ventilator 50 02/28/20 06:00 102 23 108/58 (75) 93 02/28/20 05:43 114/65 02/28/20 05:30 107 25 114/65 (81) 93 02/28/20 05:30 80 19 50 02/28/20 05:00 109/64 02/28/20 05:00 20 Mechanical Ventilator 50 02/28/20 05:00 87 20 110/74 (86) 86 02/28/20 04:30 89 21 111/62 (78) 94 02/28/20 04:00 88 02/28/20 04:00 98.7 87 21 107/60 (76) 96 02/28/20 04:00 110/60 02/28/20 04:00 20 Mechanical Ventilator 50 5/3/20 04:00 50 02/28/20 04:00 Mechanical Ventilator 02/28/20 03:30 87 20 100/60 (73) 96 02/28/20 03:27 88 20 50 02/28/20 03:00 101/57 02/28/20 03:00 21 Mechanical Ventilator 50 02/28/20 03:00 86 20 99/60 (73) 94 02/28/20 02:30 88 20 101/60 (74) 95 02/28/20 02:00 88 20 97/57 (70) 97 02/28/20 02:00 99/58 02/28/20 02:00 20 Mechanical Ventilator 50 02/28/20 01:30 90 20 96/58 (71) 98 02/28/20 01:14 90 19 50 02/28/20 01:00 100/55 02/28/20 01:00 20 Mechanical Ventilator 50 02/28/20 01:00 91 20 100/55 (70) 97 02/28/20 00:30 89 20 102/55 (71) 97 02/28/20 00:00 50 02/28/20 00:00 98.9 88 20 104/62 (76) 98 02/28/20 00:00 88 02/28/20 00:00 Mechanical Ventilator 02/28/20 00:00 102/55 02/28/20 00:00 20 Mechanical Ventilator 50 02/27/20 23:30 92 20 102/58 (73) 96 02/27/20 23:25 84 16 50 02/27/20 23:02 102/58 02/27/20 23:00 90 20 102/58 (73) 97 02/27/20 23:00 21 Mechanical Ventilator 50 02/27/20 22:55 100/60 02/27/20 22:30 95 21 100/59 (73) 96 02/27/20 22:00 116 25 108/61 (77) 92 02/27/20 22:00 106/59 02/27/20 22:00 22 Mechanical Ventilator 50 02/27/20 21:30 106 24 111/52 (71) 91 02/27/20 21:15 96 22 50 02/27/20 21:00 107 20 91/48 (62) 93 02/27/20 21:00 112/58 02/27/20 21:00 23 Mechanical Ventilator 50 02/27/20 20:30 109 21 100/53 (69) 94 02/27/20 20:00 50 02/27/20 20:00 98.4 111 21 100/54 (69) 93 02/27/20 20:00 97/57 02/27/20 20:00 21 Mechanical Ventilator 50 02/27/20 20:00 111 02/27/20 20:00 Mechanical Ventilator 02/27/20 19:30 109 21 104/58 (73) 95 02/27/20 19:15 110 21 104/55 (71) 95 02/27/20 19:00 109 21 99/55 (70) 94 02/27/20 19:00 106 22 50 02/27/20 19:00 104/55 02/27/20 19:00 21 Mechanical Ventilator 50 02/27/20 18:30 108 25 92/48 (63) 93 Intake and Output 02/27/20 02/28/20 19:00 07:00 Intake Total 2162.725 ml 2315.416 ml Output Total 950 ml 845 ml Balance 1212.725 ml 1470.416 ml Free Water 150 ml 60 ml IV Total 1462.725 ml 1705.416 ml Tube Feeding 550 ml 550 ml Output Urine Total 950 ml 845 ml Stool Total 0 ml Laboratory Tests 02/28/20 05:00: White Blood Count 7.5, Red Blood Count 3.33L, Hemoglobin 9.9L, Hematocrit 29.5L , Mean Corpuscular Volume 89, Mean Corpuscular Hemoglobin 29.7, Mean Corpuscular Hemoglobin Concent 33.5, Red Cell Distribution Width 14.5, Platelet Count 23L, Mean Platelet Volume 9.0, Neutrophils (%) (Auto) , Lymphocytes (%) ( Auto) , Monocytes (%) (Auto) , Eosinophils (%) (Auto) , Basophils (%) (Auto) , Differential Total Cells Counted 100, Neutrophils % (Manual) 86H, Lymphocytes % (Manual) 10L, Monocytes % (Manual) 4, Eosinophils % (Manual) 0, Basophils % ( Manual) 0, Band Neutrophils 0, Platelet Estimate DecreasedL, Platelet Morphology Normal, Anisocytosis 1+, Macrocytosis 1+, Sodium Level 141, Potassium Level 3.4L, Chloride Level 106, Carbon Dioxide Level 30, Anion Gap 5, Blood Urea Nitrogen 19H, Creatinine 0.6, Estimat Glomerular Filtration Rate > 60 , Glucose Level 243#H, Calcium Level 6.8L, Total Bilirubin 12.7H, Direct Bilirubin 11.1H, Aspartate Amino Transf (AST/SGOT) 35, Alanine Aminotransferase (ALT/SGPT) 30, Alkaline Phosphatase 85, Total Protein 4.7L, Albumin 1.1L, Globulin 3.6, Albumin/Globulin Ratio 0.3L, HIV (1&2) Antibody Rapid Negative 02/28/20 16:00: Vancomycin Level Trough 29.2H, Heparin-PF4 Antibody Screen [Pending], Hepatitis A IgM Antibody [Pending], Hepatitis B Surface Antigen [Pending], Hepatitis B Core IgM Antibody [Pending], Hepatitis C Antibody [Pending] Height (Feet): 5 Height (Inches): 5.00 Weight (Pounds): 120 Objective General Appearance: other - intubated Lines, tubes and drains: peripheral HEENT: normocephalic, atraumatic, other - dry mucous membranes Neck: non-tender, normal alignment Respiratory/Chest: rhonchi - bilaterally Cardiovascular/Chest: normal peripheral pulses, normal rate Abdomen: soft, hypoactive bowel sounds Extremities: normal range of motion, no calf tenderness, non-pitting, no edema Skin Exam: normal pigmentation, warm/dry Dwayne Salas M.D. February 28, 2020 18:16
[2020-02-28] MEDS: Dyna-Hex 2% Top Sol 2oz TOPIC SCH (21:26)
[2020-02-29] VITALS (52 sets, daily range): BP systolic 80–140; BP diastolic 45–80
[2020-02-29] MEDS: Piperacillin/Tazobactam 3.375 GM in D5W 110 ML IVPB SCH ×3 (01:05→17:40)
[2020-02-29] MEDS: Vancomycin 1gm in D5W 275ml IVPB SCH ×3 (04:50→21:11)
[2020-02-29] MEDS: NovoLOG Insulin Flexpen SUBQ SCH ×4 (06:00→17:36)
[2020-02-29] MEDS: Norepinephrine Bitartrate 8 MG in D5W 500ml 492 ML IV SCH ×5 (07:15→22:47)
[2020-02-29 07:21] LABS: HEMATOCRIT 29.8 % (42.0-52.0); MEAN CORPUSCULAR VOLUME 89 FL (80-99); PLATELET COUNT 15 K/UL (150-450); RED BLOOD COUNT 3.33 M/UL (4.70-6.10); RED CELL DISTRIBUTION WIDTH 14.3 % (11.6-14.8); WHITE BLOOD COUNT 3.4 K/UL (4.8-10.8)
[2020-02-29] MEDS: fentaNYL Citrate 2,500 MCG in NS 200 ML IV SCH ×2 (08:12→22:58)
[2020-02-29] MEDS: Doxycycline Monohydrate 100mg ORAL SCH ×2 (08:13→21:11)
[2020-02-29] MEDS: Pantoprazole Inj IVP SCH (08:13)
--- NOTE | 2020-02-29 09:58 | Nephrology Progress Note ---
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 # h/o DVT # schizophrenia, bipolar - replete lytes, phos and K prn - continue icu care - monitor off IVF - replete lytes prn - vasopressor per pulmonary - antibiotics per ICU - trend lactic acid - follow cx - vent management per pulmonary - monitor lytes - BG control - hold antihypertensive Subjective ROS Limited/Unobtainable: Yes Subjective labs pending on levo 20 Fio2 100 remains intubated Objective Objective Last 24 Hour Vital Signs Date Time Temp Pulse Resp B/P (MAP) Pulse Ox O2 Delivery O2 Flow Rate FiO2 02/29/20 08:13 90/52 02/29/20 08:12 20 Mechanical Ventilator 100 02/29/20 08:00 Mechanical Ventilator 02/29/20 07:15 84/50 02/29/20 07:13 133 29 100 02/29/20 07:00 125 24 84/50 (61) 93 02/29/20 06:30 78 23 02/29/20 06:30 130 26 81/50 (60) 93 02/29/20 06:30 78 23 02/29/20 06:00 134 26 86/51 (63) 93 02/29/20 06:00 24 Mechanical Ventilator 100 02/29/20 06:00 136 27 103/52 (69) 92 02/29/20 05:48 137 26 80/50 (60) 93 02/29/20 05:30 136 26 100 02/29/20 05:30 139 27 89/45 (60) 80 02/29/20 05:00 24 Mechanical Ventilator 100 02/29/20 05:00 136 27 103/52 (69) 92 02/29/20 04:30 142 34 123/58 (79) 82 02/29/20 04:00 98.8 132 30 121/70 (87) 87 02/29/20 04:00 Mechanical Ventilator 02/29/20 04:00 80 02/29/20 04:00 20 Mechanical Ventilator 100 02/29/20 04:00 112 5/4/20 03:30 125 23 131/62 (85) 90 02/29/20 03:00 123 20 132/67 (88) 91 02/29/20 03:00 20 Mechanical Ventilator 80 02/29/20 02:55 125 34 100 02/29/20 02:30 123 24 136/63 (87) 82 02/29/20 02:30 123 24 130/63 (85) 82 02/29/20 02:15 120 21 116/62 (80) 85 02/29/20 02:00 121 22 100/56 (71) 86 02/29/20 02:00 116/62 02/29/20 02:00 24 Mechanical Ventilator 80 02/29/20 01:45 116 23 129/64 (85) 86 02/29/20 01:30 118 19 116/65 (82) 88 02/29/20 01:30 97 24 60 02/29/20 01:30 118 19 116/65 (82) 88 02/29/20 01:15 117 20 90 02/29/20 01:00 119 24 137/65 (89) 88 02/29/20 01:00 Mechanical Ventilator 02/29/20 01:00 137/65 02/29/20 01:00 20 Mechanical Ventilator 02/29/20 01:00 119 24 137/65 (89) 88 02/29/20 00:45 116 23 117/69 (85) 84 02/29/20 00:30 104 23 120/79 (93) 84 02/29/20 00:30 104 23 120/79 (93) 84 02/29/20 00:15 96 15 114/63 (80) 93 02/29/20 00:00 Mechanical Ventilator 02/29/20 00:00 90 22 127/69 (88) 99 02/29/20 00:00 114/63 02/29/20 00:00 20 Mechanical Ventilator 60 02/29/20 00:00 98.5 90 22 127/69 (88) 99 02/29/20 00:00 98 02/29/20 00:00 80 02/28/20 23:30 91 22 60 02/28/20 23:00 119/68 02/28/20 23:00 22 Mechanical Ventilator 60 02/28/20 23:00 92 23 122/68 (86) 98 02/28/20 22:30 91 22 106/60 (75) 97 02/28/20 22:00 96 24 118/67 (84) 97 02/28/20 22:00 109/61 02/28/20 22:00 24 Mechanical Ventilator 60 02/28/20 21:30 97 23 121/65 (83) 97 02/28/20 21:30 91 20 60 02/28/20 21:00 94 24 115/60 (78) 96 02/28/20 21:00 114/64 02/28/20 21:00 22 Mechanical Ventilator 60 02/28/20 20:30 91 23 99/55 (70) 97 02/28/20 20:00 98.5 93 22 99/55 (70) 98 02/28/20 20:00 Mechanical Ventilator 02/28/20 20:00 100 02/28/20 20:00 100/54 02/28/20 20:00 22 Mechanical Ventilator 80 02/28/20 20:00 80 02/28/20 19:53 120/70 02/28/20 19:53 20 Mechanical Ventilator 60 02/28/20 19:30 90 23 60 02/28/20 19:00 94 24 103/56 (72) 98 02/28/20 19:00 120/70 02/28/20 19:00 20 Mechanical Ventilator 60 02/28/20 18:22 99.8 02/28/20 18:00 103 24 117/64 (81) 95 02/28/20 18:00 118/68 02/28/20 18:00 20 Mechanical Ventilator 60 02/28/20 17:30 102 24 118/64 (82) 94 02/28/20 17:03 94 21 60 02/28/20 17:00 113/66 02/28/20 17:00 20 Mechanical Ventilator 60 02/28/20 17:00 100.5 96 23 113/66 (82) 95 02/28/20 16:30 93 18 102/57 (72) 100 02/28/20 16:00 98 02/28/20 16:00 101/56 02/28/20 16:00 20 Mechanical Ventilator 60 02/28/20 16:00 Mechanical Ventilator 02/28/20 16:00 80 02/28/20 16:00 98 23 101/56 (71) 99 02/28/20 15:30 100 23 102/54 (70) 99 02/28/20 15:00 104/62 02/28/20 15:00 20 Mechanical Ventilator 60 02/28/20 15:00 103 22 104/62 (76) 98 02/28/20 14:55 106 22 80 02/28/20 14:30 104 22 102/55 (71) 98 02/28/20 14:00 105 24 102/55 (71) 95 02/28/20 14:00 102/55 02/28/20 14:00 20 Mechanical Ventilator 60 02/28/20 13:30 107 24 107/55 (72) 95 02/28/20 13:18 106 24 80 02/28/20 13:00 93/56 02/28/20 13:00 25 Mechanical Ventilator 60 02/28/20 13:00 108 24 93/56 (68) 98 02/28/20 12:55 116/63 02/28/20 12:30 113 27 111/58 (75) 97 02/28/20 12:00 113/57 02/28/20 12:00 20 Mechanical Ventilator 60 02/28/20 12:00 80 02/28/20 12:00 Mechanical Ventilator 02/28/20 12:00 108 02/28/20 12:00 112 25 113/57 (75) 98 02/28/20 11:30 111 25 112/62 (79) 99 02/28/20 11:12 107 25 80 02/28/20 11:00 112/57 02/28/20 11:00 20 Mechanical Ventilator 60 02/28/20 11:00 109 25 113/57 (75) 98 02/28/20 10:30 104 23 104/58 (73) 98 02/28/20 10:00 100 24 108/59 (75) 96 02/28/20 10:00 107/57 02/28/20 10:00 20 Mechanical Ventilator 60 Intake and Output 02/28/20 02/29/20 18:59 06:59 Intake Total 1853.25 ml 2297.500 ml Output Total 820 ml 940 ml Balance 1033.25 ml 1357.500 ml Free Water 110 ml 150 ml IV Total 1143.25 ml 1547.500 ml Tube Feeding 600 ml 600 ml Output Urine Total 820 ml 940 ml Laboratory Tests 02/28/20 16:00: Vancomycin Level Trough 29.2H, Heparin-PF4 Antibody Screen [Pending], Hepatitis A IgM Antibody [Pending], Hepatitis B Surface Antigen [Pending], Hepatitis B Core IgM Antibody [Pending], Hepatitis C Antibody [Pending] 02/28/20 21:30: Vancomycin Level Trough 19.6H 02/29/20 05:10: White Blood Count 3.4#L, Red Blood Count 3.33L, Hemoglobin 10.0L, Hematocrit 29.8L, Mean Corpuscular Volume 89, Mean Corpuscular Hemoglobin 29.9, Mean Corpuscular Hemoglobin Concent 33.5, Red Cell Distribution Width 14.3, Platelet Count 15L, Mean Platelet Volume 12.7H, Neutrophils (%) (Auto) , Lymphocytes (%) (Auto) , Monocytes (%) (Auto) , Eosinophils (%) (Auto) , Basophils (%) (Auto) , Neutrophils % (Manual) [Pending], Lymphocytes % (Manual) [Pending], Platelet Estimate [Pending], Platelet Morphology [Pending] Height (Feet): 5 Height (Inches): 5.00 Weight (Pounds): 122 Objective General Appearance: other - intubated Lines, tubes and drains: peripheral HEENT: normocephalic, atraumatic, other - dry mucous membranes Neck: non-tender, normal alignment Respiratory/Chest: rhonchi - bilaterally Cardiovascular/Chest: normal peripheral pulses, normal rate Abdomen: soft, hypoactive bowel sounds Extremities: normal range of motion, no calf tenderness, non-pitting, no edema Skin Exam: normal pigmentation, warm/dry Dwayne Salas M.D. February 29, 2020 09:58
[2020-02-29 10:17] LABS: ANION GAP 5 mmol/L (5-15); BLOOD UREA NITROGEN 19 mg/dL (7-18); CARBON DIOXIDE 30 MMOL/L (21-32); CHLORIDE 99 MMOL/L (98-107); CREATININE 0.6 MG/DL (0.55-1.30); PHOSPHORUS 1.4 MG/DL (2.5-4.9); POTASSIUM 3.3 MMOL/L (3.5-5.1); SODIUM 134 MMOL/L (136-145)
--- NOTE | 2020-02-29 10:29 | General Progress Note ---
Assessment/Plan Problem List: (1) Elevated LFTs ICD Codes: R79.89 - Other specified abnormal findings of blood chemistry SNOMED: 709947924, 282759659 (2) Thrombocytopenia ICD Codes: D69.6 - Thrombocytopenia, unspecified SNOMED: 129953005 (3) Suspected COVID-19 virus infection ICD Codes: Z20.828 - Contact with and (suspected) exposure to other viral communicable diseases SNOMED: 373534655 (4) Respiratory failure with hypoxia ICD Codes: J96.91 - Respiratory failure, unspecified with hypoxia SNOMED: [id number] Qualifiers: Qualified Codes: J96.01 - Acute respiratory failure with hypoxia (5) Hypotension ICD Codes: I95.9 - Hypotension, unspecified SNOMED: 20123206 Qualifiers: Qualified Codes: I95.9 - Hypotension, unspecified (6) Alzheimer's dementia ICD Codes: G30.9 - Alzheimer's disease, unspecified; F02.80 - Dementia in other diseases classified elsewhere without behavioral disturbance SNOMED: 50012784 (7) Cerebrovascular accident (CVA) ICD Codes: I63.9 - Cerebral infarction, unspecified SNOMED: 167477094 (8) History of hypertension ICD Codes: Z86.79 - Personal history of other diseases of the circulatory system SNOMED: 314548177 (9) Diabetes mellitus ICD Codes: E11.9 - Type 2 diabetes mellitus without complications SNOMED: 12337967 Assessment/Plan: add reglan monitor for residuals fu labs abx per ID poor prognosis Subjective ROS Limited/Unobtainable: No Allergies: Coded Allergies: No Known Allergies (Unverified , 01/19/19) Objective Last 24 Hour Vital Signs Date Time Temp Pulse Resp B/P (MAP) Pulse Ox O2 Delivery O2 Flow Rate FiO2 02/29/20 10:15 20 Mechanical Ventilator 100 02/29/20 10:00 20 Mechanical Ventilator 100 02/29/20 09:45 20 Mechanical Ventilator 100 02/29/20 09:30 128 28 87/51 (63) 93 02/29/20 09:30 90/52 02/29/20 09:30 20 Mechanical Ventilator 100 02/29/20 09:15 87/51 02/29/20 09:15 20 Mechanical Ventilator 100 02/29/20 09:00 129 28 84/49 (61) 93 02/29/20 09:00 84/49 02/29/20 09:00 20 Mechanical Ventilator 100 02/29/20 08:45 80/54 02/29/20 08:45 20 Mechanical Ventilator 100 02/29/20 08:30 130 25 93/52 (66) 92 02/29/20 08:30 90/54 02/29/20 08:30 20 Mechanical Ventilator 100 02/29/20 08:13 90/52 02/29/20 08:12 93/52 02/29/20 08:12 20 Mechanical Ventilator 100 02/29/20 08:00 Mechanical Ventilator 02/29/20 08:00 20 Mechanical Ventilator 100 02/29/20 08:00 99.4 128 25 90/54 (66) 92 02/29/20 08:00 100 02/29/20 07:30 128 27 85/51 (62) 92 02/29/20 07:15 84/50 02/29/20 07:13 133 29 100 02/29/20 07:00 125 24 84/50 (61) 93 02/29/20 07:00 20 Mechanical Ventilator 02/29/20 06:30 78 23 02/29/20 06:30 130 26 81/50 (60) 93 02/29/20 06:30 78 23 02/29/20 06:00 134 26 86/51 (63) 93 02/29/20 06:00 24 Mechanical Ventilator 02/29/20 06:00 136 27 103/52 (69) 92 02/29/20 05:48 137 26 80/50 (60) 93 02/29/20 05:30 136 26 100 02/29/20 05:30 139 27 89/45 (60) 80 02/29/20 05:00 24 Mechanical Ventilator 02/29/20 05:00 136 27 103/52 (69) 92 02/29/20 04:30 142 34 123/58 (79) 82 02/29/20 04:00 98.8 132 30 121/70 (87) 87 02/29/20 04:00 Mechanical Ventilator 02/29/20 04:00 80 02/29/20 04:00 20 Mechanical Ventilator 100 02/29/20 04:00 112 02/29/20 03:30 125 23 131/62 (85) 90 02/29/20 03:00 123 20 132/67 (88) 91 02/29/20 03:00 20 Mechanical Ventilator 80 02/29/20 02:55 125 34 100 02/29/20 02:30 123 24 136/63 (87) 82 02/29/20 02:30 123 24 130/63 (85) 82 02/29/20 02:15 120 21 116/62 (80) 85 02/29/20 02:00 121 22 100/56 (71) 86 02/29/20 02:00 116/62 02/29/20 02:00 24 Mechanical Ventilator 80 02/29/20 01:45 116 23 129/64 (85) 86 02/29/20 01:30 118 19 116/65 (82) 88 02/29/20 01:30 97 24 60 02/29/20 01:30 118 19 116/65 (82) 88 02/29/20 01:15 117 20 90 02/29/20 01:00 119 24 137/65 (89) 88 02/29/20 01:00 Mechanical Ventilator 02/29/20 01:00 137/65 02/29/20 01:00 20 Mechanical Ventilator 02/29/20 01:00 119 24 137/65 (89) 88 02/29/20 00:45 116 23 117/69 (85) 84 02/29/20 00:30 104 23 120/79 (93) 84 02/29/20 00:30 104 23 120/79 (93) 84 02/29/20 00:15 96 15 114/63 (80) 93 02/29/20 00:00 Mechanical Ventilator 02/29/20 00:00 90 22 127/69 (88) 99 02/29/20 00:00 114/63 02/29/20 00:00 20 Mechanical Ventilator 60 02/29/20 00:00 98.5 90 22 127/69 (88) 99 02/29/20 00:00 98 02/29/20 00:00 80 02/28/20 23:30 91 22 60 02/28/20 23:00 119/68 02/28/20 23:00 22 Mechanical Ventilator 60 02/28/20 23:00 92 23 122/68 (86) 98 02/28/20 22:30 91 22 106/60 (75) 97 02/28/20 22:00 96 24 118/67 (84) 97 02/28/20 22:00 109/61 02/28/20 22:00 24 Mechanical Ventilator 60 02/28/20 21:30 97 23 121/65 (83) 97 02/28/20 21:30 91 20 60 02/28/20 21:00 94 24 115/60 (78) 96 02/28/20 21:00 114/64 02/28/20 21:00 22 Mechanical Ventilator 60 02/28/20 20:30 91 23 99/55 (70) 97 02/28/20 20:00 98.5 93 22 99/55 (70) 98 02/28/20 20:00 Mechanical Ventilator 02/28/20 20:00 100 02/28/20 20:00 100/54 02/28/20 20:00 22 Mechanical Ventilator 80 02/28/20 20:00 80 02/28/20 19:53 120/70 02/28/20 19:53 20 Mechanical Ventilator 60 02/28/20 19:30 90 23 60 02/28/20 19:00 94 24 103/56 (72) 98 02/28/20 19:00 120/70 02/28/20 19:00 20 Mechanical Ventilator 60 02/28/20 18:22 99.8 02/28/20 18:00 103 24 117/64 (81) 95 02/28/20 18:00 118/68 02/28/20 18:00 20 Mechanical Ventilator 60 02/28/20 17:30 102 24 118/64 (82) 94 02/28/20 17:03 94 21 60 02/28/20 17:00 113/66 02/28/20 17:00 20 Mechanical Ventilator 60 02/28/20 17:00 100.5 96 23 113/66 (82) 95 02/28/20 16:30 93 18 102/57 (72) 100 02/28/20 16:00 98 02/28/20 16:00 101/56 02/28/20 16:00 20 Mechanical Ventilator 60 02/28/20 16:00 Mechanical Ventilator 02/28/20 16:00 80 02/28/20 16:00 98 23 101/56 (71) 99 02/28/20 15:30 100 23 102/54 (70) 99 02/28/20 15:00 104/62 02/28/20 15:00 20 Mechanical Ventilator 60 02/28/20 15:00 103 22 104/62 (76) 98 02/28/20 14:55 106 22 80 02/28/20 14:30 104 22 102/55 (71) 98 02/28/20 14:00 105 24 102/55 (71) 95 02/28/20 14:00 102/55 02/28/20 14:00 20 Mechanical Ventilator 60 02/28/20 13:30 107 24 107/55 (72) 95 02/28/20 13:18 106 24 80 02/28/20 13:00 93/56 02/28/20 13:00 25 Mechanical Ventilator 60 02/28/20 13:00 108 24 93/56 (68) 98 02/28/20 12:55 116/63 02/28/20 12:30 113 27 111/58 (75) 97 02/28/20 12:00 113/57 02/28/20 12:00 20 Mechanical Ventilator 60 02/28/20 12:00 80 02/28/20 12:00 Mechanical Ventilator 02/28/20 12:00 108 02/28/20 12:00 112 25 113/57 (75) 98 02/28/20 11:30 111 25 112/62 (79) 99 02/28/20 11:12 107 25 80 02/28/20 11:00 112/57 02/28/20 11:00 20 Mechanical Ventilator 60 02/28/20 11:00 109 25 113/57 (75) 98 02/28/20 10:30 104 23 104/58 (73) 98 Intake and Output 02/28/20 02/29/20 19:00 07:00 Intake Total 1943.75 ml 2195.000 ml Output Total 900 ml 910 ml Balance 1043.75 ml 1285.000 ml Free Water 110 ml 150 ml IV Total 1183.75 ml 1445.000 ml Tube Feeding 650 ml 600 ml Output Urine Total 900 ml 910 ml Laboratory Tests 02/28/20 16:00: Vancomycin Level Trough 29.2H, Heparin-PF4 Antibody Screen [Pending], Hepatitis A IgM Antibody [Pending], Hepatitis B Surface Antigen [Pending], Hepatitis B Core IgM Antibody [Pending], Hepatitis C Antibody [Pending] 02/28/20 21:30: Vancomycin Level Trough 19.6H 02/29/20 05:10: White Blood Count 3.4#L, Red Blood Count 3.33L, Hemoglobin 10.0L, Hematocrit 29.8L, Mean Corpuscular Volume 89, Mean Corpuscular Hemoglobin 29.9, Mean Corpuscular Hemoglobin Concent 33.5, Red Cell Distribution Width 14.3, Platelet Count 15L, Mean Platelet Volume 12.7H, Neutrophils (%) (Auto) , Lymphocytes (%) (Auto) , Monocytes (%) (Auto) , Eosinophils (%) (Auto) , Basophils (%) (Auto) , Differential Total Cells Counted 100, Neutrophils % (Manual) 88H, Lymphocytes % (Manual) 7L, Monocytes % (Manual) 3, Eosinophils % (Manual) 1, Basophils % ( Manual) 1, Band Neutrophils 0, Platelet Estimate DecreasedL, Platelet Morphology Normal, Hypochromasia 2+, Anisocytosis 1+, Sodium Level 134L, Potassium Level 3.3L, Chloride Level 99, Carbon Dioxide Level 30, Anion Gap 5, Blood Urea Nitrogen 19H, Creatinine 0.6, Estimat Glomerular Filtration Rate > 60 , Glucose Level 189H, Calcium Level 7.0L, Phosphorus Level 1.4L, Magnesium Level 1.7L Height (Feet): 5 Height (Inches): 5.00 Weight (Pounds): 122 General Appearance: lethargic EENT: normal ENT inspection Neck: supple Cardiovascular: tachycardia Respiratory/Chest: decreased breath sounds Abdomen: normal bowel sounds, non tender, soft Extremities: non-tender Domo Howe MD February 29, 2020 10:29
[2020-02-29] MEDS ORDERED: Metoclopramide 10mg/2ml Inj IVP PRN (10:30)
--- NOTE | 2020-02-29 11:21 | Hematology/Onc Progress Note ---
Assessment/Plan Assessment/Plan # Severe thrombocytopenia - potential causes multifactorial, evaluate liver and viral etiologies to begin, in this particular case, given mosf, is due to [id number], has had hyperbilirubinemia, has received heparin and zosyn both culprits as well --> Hep panel and HIV ordered --> US abd to evaluate for cirrhosis and hsm ordered ->when covid is negative --> Peripheral smear ordered to evaluate for blasts /schistocytes (ALSO HAVE Ordered for DIC panel) --> abx and other meds have been reviewed --> ok for ppx if plt >50k w/ either heparin or lovenox --> Transfuse if Plt < 20k and fever, or if Plt < 10k without fever --> off heparin now, have ordered for hit-pf4 antibody test # Anemia of chronic disease due to underlying chronic medical issues, multifactorial v Gi bleed --> Anemia workup has been ordered, rule out gi bleed --> No evidence of hemolysis is noted, peripheral smear has been reviewed. --> Hgb goal >7. Transfuse prn. --> Epogen or iron at this time is not particularly indicated --> Medications have been reviewed --> low threshold for gi evaluation in case has occult + --> bone marrow biopsy is not indicated given the other more likely causes # Septic shock 2/2 due to covid 19 --> on abx as per id --> wbc remains elev # Acute Hypoxic Respiratory Failure --> now s/p vent --> in icu # HCAP COVID positive --> abx, plaq and supp care # Jaundiced with Hyperbilirubinemia --> per gi--> with ogt # Schizophrenia # Bipolar dx # Dvt ppx scds The timing of this note does not necessarily reflect the time of the patient was seen. Greatly appreciate consultation. Subjective Allergies: Coded Allergies: No Known Allergies (Unverified , 01/19/19) All Systems: reviewed and negative except above Subjective 5/4 remains on vent, og, rush, sedated in icu, on pressors, plt 15k, smear pending Objective Objective Current Medications Medications (Trade) Dose Ordered Sig/Cirilo Route PRN Reason Start Time Stop Time Status Last Admin Dose Admin Acetaminophen (Tylenol) 650 mg Q4H PRN ORAL Fever 02/22/20 14:15 03/23/20 14:14 02/28/20 17:52 Acetaminophen (Tylenol) 650 mg Q4H PRN ORAL Mild Pain (Pain Scale 1-3) 02/22/20 14:15 03/23/20 14:14 02/29/20 08:15 Acetaminophen (Tylenol) 650 mg Q4H PRN RECTAL Mild Pain (Pain Scale 1-3) 02/22/20 14:15 03/23/20 14:14 02/22/20 21:28 Acetaminophen (Tylenol) 650 mg Q4H PRN RECTAL FEVER 02/22/20 14:15 03/23/20 14:14 Chlorhexidine Gluconate (Maira-Hex 2%) 1 applic DAILY@2000 TOPIC 02/23/20 20:00 05/23/20 19:59 02/28/20 21:26 Dextrose (Dextrose 50%) 25 ml Q30M PRN IV Hypoglycemia 02/23/20 09:00 05/23/20 08:59 Dextrose (Dextrose 50%) 50 ml Q30M PRN IV Hypoglycemia 02/23/20 09:00 05/23/20 08:59 Diphenhydramine HCl (Benadryl) 25 mg Q6H PRN ORAL Itching/Pruritis 02/22/20 14:15 03/23/20 14:14 02/26/20 01:34 Doxycycline Monohydrate (Doxycycline Monohydrate) 100 mg EVERY 12 HOURS ORAL 02/24/20 09:00 03/02/20 08:59 02/29/20 08:13 Enoxaparin Sodium (Lovenox) 40 mg Q24H SUBQ 02/22/20 17:00 05/22/20 16:59 02/24/20 17:37 Fentanyl Citrate 2500 mcg/Sodium Chloride 250 ml @ 0 mls/hr Q24H IV 02/23/20 10:00 03/01/20 09:59 02/29/20 08:12 Insulin Aspart (NovoLOG) Q6HR SUBQ 02/28/20 18:00 05/28/20 17:59 02/28/20 18:48 Lorazepam (Ativan 2mg/ml 1ml) 1 mg Q6H PRN IV For Anxiety 02/26/20 08:30 03/04/20 08:29 02/29/20 04:46 Magnesium Sulfate 100 ml @ 100 mls/hr Q1H IVPB 02/29/20 11:30 02/29/20 13:29 Metoclopramide HCl (Reglan) 5 mg Q6H PRN IVP Nausea & Vomiting 02/29/20 10:30 03/30/20 10:29 Midazolam HCl 100 ml @ 0 mls/hr Q24H IV 02/26/20 15:06 05/26/20 15:05 02/26/20 15:48 Norepinephrine Bitartrate 8 mg/ Dextrose 500 ml @ 0 mls/hr Q24H IV 02/23/20 19:01 03/24/20 19:00 02/29/20 08:13 Pantoprazole (Protonix) 40 mg DAILY IVP 02/23/20 09:30 03/24/20 09:29 02/29/20 08:13 Phenylephrine HCl 50 mg/Dextrose 250 ml @ 6 mls/hr Q24H IV 02/29/20 10:45 03/30/20 10:44 Piperacillin Sod/ Tazobactam Sod 3.375 gm/Dextrose 110 ml @ 27.5 mls/hr Q8H IVPB 02/23/20 01:00 03/01/20 00:59 02/29/20 08:12 Potassium Phosphate 250 ml @ 62.5 mls/hr Q4H IVPB 02/29/20 13:00 02/29/20 20:59 Potassium Chloride 100 ml @ 50 mls/hr Q2H IVPB 02/29/20 11:30 02/29/20 15:29 Vancomycin HCl (Vanco rx to dose) 1 ea DAILY PRN MISC Per rx protocol 02/22/20 14:30 03/23/20 14:29 Vancomycin HCl 1 gm/Dextrose 275 ml @ 183.708 mls/hr Q8H IVPB 02/28/20 21:00 03/04/20 20:59 02/29/20 04:50 Last 24 Hour Vital Signs Date Time Temp Pulse Resp B/P (MAP) Pulse Ox O2 Delivery O2 Flow Rate FiO2 02/29/20 10:15 20 Mechanical Ventilator 100 02/29/20 10:00 20 Mechanical Ventilator 100 02/29/20 09:45 20 Mechanical Ventilator 100 02/29/20 09:30 128 28 87/51 (63) 93 02/29/20 09:30 90/52 02/29/20 09:30 20 Mechanical Ventilator 100 02/29/20 09:15 87/51 02/29/20 09:15 20 Mechanical Ventilator 100 02/29/20 09:00 129 28 84/49 (61) 93 02/29/20 09:00 84/49 02/29/20 09:00 20 Mechanical Ventilator 100 02/29/20 08:45 80/54 02/29/20 08:45 20 Mechanical Ventilator 100 02/29/20 08:30 130 25 93/52 (66) 92 02/29/20 08:30 90/54 02/29/20 08:30 20 Mechanical Ventilator 100 02/29/20 08:13 90/52 02/29/20 08:12 93/52 02/29/20 08:12 20 Mechanical Ventilator 100 02/29/20 08:00 Mechanical Ventilator 02/29/20 08:00 20 Mechanical Ventilator 100 02/29/20 08:00 99.4 128 25 90/54 (66) 92 02/29/20 08:00 100 02/29/20 07:30 128 27 85/51 (62) 92 02/29/20 07:15 84/50 02/29/20 07:13 133 29 100 02/29/20 07:00 125 24 84/50 (61) 93 02/29/20 07:00 20 Mechanical Ventilator 100 02/29/20 06:30 78 23 02/29/20 06:30 130 26 81/50 (60) 93 02/29/20 06:30 78 23 02/29/20 06:00 134 26 86/51 (63) 93 02/29/20 06:00 24 Mechanical Ventilator 100 02/29/20 06:00 136 27 103/52 (69) 92 02/29/20 05:48 137 26 80/50 (60) 93 02/29/20 05:30 136 26 100 02/29/20 05:30 139 27 89/45 (60) 80 02/29/20 05:00 24 Mechanical Ventilator 100 02/29/20 05:00 136 27 103/52 (69) 92 02/29/20 04:30 142 34 123/58 (79) 82 02/29/20 04:00 98.8 132 30 121/70 (87) 87 02/29/20 04:00 Mechanical Ventilator 02/29/20 04:00 80 02/29/20 04:00 20 Mechanical Ventilator 100 02/29/20 04:00 112 02/29/20 03:30 125 23 131/62 (85) 90 02/29/20 03:00 123 20 132/67 (88) 91 02/29/20 03:00 20 Mechanical Ventilator 80 02/29/20 02:55 125 34 100 02/29/20 02:30 123 24 136/63 (87) 82 02/29/20 02:30 123 24 130/63 (85) 82 02/29/20 02:15 120 21 116/62 (80) 85 02/29/20 02:00 121 22 100/56 (71) 86 02/29/20 02:00 116/62 02/29/20 02:00 24 Mechanical Ventilator 80 02/29/20 01:45 116 23 129/64 (85) 86 02/29/20 01:30 118 19 116/65 (82) 88 02/29/20 01:30 97 24 60 02/29/20 01:30 118 19 116/65 (82) 88 02/29/20 01:15 117 20 90 02/29/20 01:00 119 24 137/65 (89) 88 02/29/20 01:00 Mechanical Ventilator 02/29/20 01:00 137/65 02/29/20 01:00 20 Mechanical Ventilator 02/29/20 01:00 119 24 137/65 (89) 88 02/29/20 00:45 116 23 117/69 (85) 84 02/29/20 00:30 104 23 120/79 (93) 84 02/29/20 00:30 104 23 120/79 (93) 84 02/29/20 00:15 96 15 114/63 (80) 93 02/29/20 00:00 Mechanical Ventilator 02/29/20 00:00 90 22 127/69 (88) 99 02/29/20 00:00 114/63 02/29/20 00:00 20 Mechanical Ventilator 60 02/29/20 00:00 98.5 90 22 127/69 (88) 99 02/29/20 00:00 98 02/29/20 00:00 80 02/28/20 23:30 91 22 60 02/28/20 23:00 119/68 02/28/20 23:00 22 Mechanical Ventilator 60 02/28/20 23:00 92 23 122/68 (86) 98 02/28/20 22:30 91 22 106/60 (75) 97 02/28/20 22:00 96 24 118/67 (84) 97 02/28/20 22:00 109/61 02/28/20 22:00 24 Mechanical Ventilator 60 02/28/20 21:30 97 23 121/65 (83) 97 02/28/20 21:30 91 20 60 02/28/20 21:00 94 24 115/60 (78) 96 02/28/20 21:00 114/64 02/28/20 21:00 22 Mechanical Ventilator 60 02/28/20 20:30 91 23 99/55 (70) 97 02/28/20 20:00 98.5 93 22 99/55 (70) 98 02/28/20 20:00 Mechanical Ventilator 02/28/20 20:00 100 02/28/20 20:00 100/54 02/28/20 20:00 22 Mechanical Ventilator 80 02/28/20 20:00 80 02/28/20 19:53 120/70 02/28/20 19:53 20 Mechanical Ventilator 60 02/28/20 19:30 90 23 60 02/28/20 19:00 94 24 103/56 (72) 98 02/28/20 19:00 120/70 02/28/20 19:00 20 Mechanical Ventilator 60 02/28/20 18:22 99.8 02/28/20 18:00 103 24 117/64 (81) 95 02/28/20 18:00 118/68 02/28/20 18:00 20 Mechanical Ventilator 60 02/28/20 17:30 102 24 118/64 (82) 94 02/28/20 17:03 94 21 60 02/28/20 17:00 113/66 02/28/20 17:00 20 Mechanical Ventilator 60 02/28/20 17:00 100.5 96 23 113/66 (82) 95 02/28/20 16:30 93 18 102/57 (72) 100 02/28/20 16:00 98 02/28/20 16:00 101/56 02/28/20 16:00 20 Mechanical Ventilator 60 02/28/20 16:00 Mechanical Ventilator 02/28/20 16:00 80 02/28/20 16:00 98 23 101/56 (71) 99 02/28/20 15:30 100 23 102/54 (70) 99 02/28/20 15:00 104/62 02/28/20 15:00 20 Mechanical Ventilator 60 02/28/20 15:00 103 22 104/62 (76) 98 02/28/20 14:55 106 22 80 02/28/20 14:30 104 22 102/55 (71) 98 02/28/20 14:00 105 24 102/55 (71) 95 02/28/20 14:00 102/55 02/28/20 14:00 20 Mechanical Ventilator 60 02/28/20 13:30 107 24 107/55 (72) 95 02/28/20 13:18 106 24 80 02/28/20 13:00 93/56 02/28/20 13:00 25 Mechanical Ventilator 60 02/28/20 13:00 108 24 93/56 (68) 98 02/28/20 12:55 116/63 02/28/20 12:30 113 27 111/58 (75) 97 02/28/20 12:00 113/57 02/28/20 12:00 20 Mechanical Ventilator 60 02/28/20 12:00 80 02/28/20 12:00 Mechanical Ventilator 02/28/20 12:00 108 02/28/20 12:00 112 25 113/57 (75) 98 02/28/20 11:30 111 25 112/62 (79) 99 02/28/20 11:12 107 25 80 02/28/20 11:00 112/57 02/28/20 11:00 20 Mechanical Ventilator 60 02/28/20 11:00 109 25 113/57 (75) 98 02/28/20 10:30 104 23 104/58 (73) 98 02/28/20 10:00 100 24 108/59 (75) 96 02/28/20 10:00 107/57 02/28/20 10:00 20 Mechanical Ventilator 60 02/28/20 09:30 102 23 108/59 (75) 97 02/28/20 09:19 103 23 100 02/28/20 09:00 101 24 107/58 (74) 100 02/28/20 09:00 111/60 02/28/20 09:00 20 Mechanical Ventilator 80 02/28/20 09:00 80 02/28/20 08:30 101 22 110/65 (80) 100 02/28/20 08:00 100 02/28/20 08:00 99.2 120 27 83/49 (60) 83 02/28/20 08:00 Mechanical Ventilator 02/28/20 08:00 107 02/28/20 08:00 140/71 02/28/20 08:00 20 Mechanical Ventilator 80 02/28/20 07:30 103 19 106/61 (76) 88 02/28/20 07:20 99 26 50 02/28/20 07:00 95 24 110/58 (75) 94 02/28/20 07:00 108/97 02/28/20 07:00 20 Mechanical Ventilator 80 02/28/20 06:39 22 Mechanical Ventilator 50 02/28/20 06:33 78 23 02/28/20 06:30 100 22 106/63 (77) 93 02/28/20 06:15 102 23 108/60 (76) 94 02/28/20 06:00 110/58 02/28/20 06:00 21 Mechanical Ventilator 50 02/28/20 06:00 102 23 108/58 (75) 93 02/28/20 05:43 114/65 02/28/20 05:30 107 25 114/65 (81) 93 02/28/20 05:30 80 19 50 02/28/20 05:00 109/64 02/28/20 05:00 20 Mechanical Ventilator 50 02/28/20 05:00 87 20 110/74 (86) 86 02/28/20 04:30 89 21 111/62 (78) 94 02/28/20 04:00 88 02/28/20 04:00 98.7 87 21 107/60 (76) 96 02/28/20 04:00 110/60 02/28/20 04:00 20 Mechanical Ventilator 50 02/28/20 04:00 50 02/28/20 04:00 Mechanical Ventilator 02/28/20 03:30 87 20 100/60 (73) 96 02/28/20 03:27 88 20 50 02/28/20 03:00 101/57 02/28/20 03:00 21 Mechanical Ventilator 50 02/28/20 03:00 86 20 99/60 (73) 94 02/28/20 02:30 88 20 101/60 (74) 95 02/28/20 02:00 88 20 97/57 (70) 97 02/28/20 02:00 99/58 02/28/20 02:00 20 Mechanical Ventilator 50 02/28/20 01:30 90 20 96/58 (71) 98 02/28/20 01:14 90 19 50 02/28/20 01:00 100/55 02/28/20 01:00 20 Mechanical Ventilator 50 02/28/20 01:00 91 20 100/55 (70) 97 02/28/20 00:30 89 20 102/55 (71) 97 02/28/20 00:00 50 02/28/20 00:00 98.9 88 20 104/62 (76) 98 02/28/20 00:00 88 02/28/20 00:00 Mechanical Ventilator 02/28/20 00:00 102/55 02/28/20 00:00 20 Mechanical Ventilator 50 02/27/20 23:30 92 20 102/58 (73) 96 02/27/20 23:25 84 16 50 02/27/20 23:02 102/58 02/27/20 23:00 90 20 102/58 (73) 97 02/27/20 23:00 21 Mechanical Ventilator 50 02/27/20 22:55 100/60 02/27/20 22:30 95 21 100/59 (73) 96 02/27/20 22:00 116 25 108/61 (77) 92 02/27/20 22:00 106/59 02/27/20 22:00 22 Mechanical Ventilator 50 02/27/20 21:30 106 24 111/52 (71) 91 02/27/20 21:15 96 22 50 02/27/20 21:00 107 20 91/48 (62) 93 02/27/20 21:00 112/58 02/27/20 21:00 23 Mechanical Ventilator 50 02/27/20 20:30 109 21 100/53 (69) 94 02/27/20 20:00 50 02/27/20 20:00 98.4 111 21 100/54 (69) 93 02/27/20 20:00 97/57 02/27/20 20:00 21 Mechanical Ventilator 50 02/27/20 20:00 111 02/27/20 20:00 Mechanical Ventilator 02/27/20 19:30 109 21 104/58 (73) 95 20 19:15 110 21 104/55 (71) 95 20 19:00 109 21 99/55 (70) 94 02/27/20 19:00 106 22 50 20 19:00 104/55 20 19:00 21 Mechanical Ventilator 50 02/27/20 18:30 108 25 92/48 (63) 93 02/27/20 18:00 106 21 92/49 (63) 99 02/27/20 18:00 92/49 02/27/20 18:00 20 Mechanical Ventilator 50 02/27/20 17:30 109 25 96/54 (68) 97 02/27/20 17:18 101.0 02/27/20 17:16 109 24 50 02/27/20 17:00 100/55 02/27/20 17:00 20 Mechanical Ventilator 50 02/27/20 17:00 104 25 100/55 (70) 97 02/27/20 16:42 20 Mechanical Ventilator 50 02/27/20 16:41 20 Mechanical Ventilator 50 02/27/20 16:30 104 25 99/60 (73) 96 02/27/20 16:00 Mechanical Ventilator 02/27/20 16:00 103 02/27/20 16:00 50 02/27/20 16:00 100/51 02/27/20 16:00 20 Mechanical Ventilator 50 02/27/20 16:00 100 23 100/51 (67) 97 02/27/20 15:30 99 22 67/38 (48) 96 02/27/20 15:06 20 Mechanical Ventilator 50 02/27/20 15:00 95/54 02/27/20 15:00 20 Mechanical Ventilator 50 02/27/20 15:00 96 22 96/53 (67) 95 02/27/20 14:49 94 22 50 02/27/20 14:31 96/55 02/27/20 14:30 94/52 02/27/20 14:30 98 21 92/54 (67) 95 02/27/20 14:00 96/55 02/27/20 14:00 20 Mechanical Ventilator 50 02/27/20 14:00 95 20 99/55 (70) 96 02/27/20 13:30 95 21 97/55 (69) 95 02/27/20 13:25 20 Mechanical Ventilator 60 02/27/20 13:20 20 Mechanical Ventilator 60 02/27/20 13:17 95 20 50 02/27/20 13:15 20 Mechanical Ventilator 60 02/27/20 13:10 20 Mechanical Ventilator 60 02/27/20 13:00 93 20 98/59 (72) 99 02/27/20 13:00 20 Mechanical Ventilator 60 02/27/20 13:00 99/57 02/27/20 13:00 20 Mechanical Ventilator 60 02/27/20 12:30 93 21 98/55 (69) 100 02/27/20 12:00 Mechanical Ventilator 02/27/20 12:00 50 02/27/20 12:00 20 Mechanical Ventilator 60 02/27/20 12:00 97/59 02/27/20 12:00 20 Mechanical Ventilator 60 02/27/20 12:00 99.0 93 21 100/59 (73) 98 02/27/20 12:00 82 02/27/20 11:30 92 22 99/57 (71) 97 Intake and Output 02/28/20 02/29/20 19:00 07:00 Intake Total 1943.75 ml 2195.000 ml Output Total 900 ml 910 ml Balance 1043.75 ml 1285.000 ml Free Water 110 ml 150 ml IV Total 1183.75 ml 1445.000 ml Tube Feeding 650 ml 600 ml Output Urine Total 900 ml 910 ml Labs Test 02/27/20 06:10 02/27/20 07:55 02/27/20 14:45 02/28/20 05:00 Sodium Level 144 MMOL/L (136-145) 141 MMOL/L (136-145) Potassium Level 3.6 MMOL/L (3.5-5.1) 3.4 MMOL/L (3.5-5.1) Chloride Level 108 MMOL/L (98-107) 106 MMOL/L (98-107) Carbon Dioxide Level 30 MMOL/L (21-32) 30 MMOL/L (21-32) Anion Gap 6 mmol/L (5-15) 5 mmol/L (5-15) Blood Urea Nitrogen 18 mg/dL (7-18) 19 mg/dL (7-18) Creatinine 0.6 MG/DL (0.55-1.30) 0.6 MG/DL (0.55-1.30) Estimat Glomerular Filtration Rate > 60 mL/min (>60) > 60 mL/min (>60) Glucose Level 137 MG/DL (74-106) 243 MG/DL (74-106) Calcium Level 7.3 MG/DL (8.5-10.1) 6.8 MG/DL (8.5-10.1) Phosphorus Level 2.7 MG/DL (2.5-4.9) Magnesium Level 2.0 MG/DL (1.8-2.4) Lactic Acid Level 2.00 mmol/L (0.4-2.0) White Blood Count 7.7 K/UL (4.8-10.8) 7.5 K/UL (4.8-10.8) Red Blood Count 3.13 M/UL (4.70-6.10) 3.33 M/UL (4.70-6.10) Hemoglobin 9.5 G/DL (14.2-18.0) 9.9 G/DL (14.2-18.0) Hematocrit 27.6 % (42.0-52.0) 29.5 % (42.0-52.0) Mean Corpuscular Volume 88 FL (80-99) 89 FL (80-99) Mean Corpuscular Hemoglobin 30.4 PG (27.0-31.0) 29.7 PG (27.0-31.0) Mean Corpuscular Hemoglobin Concent 34.4 G/DL (32.0-36.0) 33.5 G/DL (32.0-36.0) Red Cell Distribution Width 13.5 % (11.6-14.8) 14.5 % (11.6-14.8) Platelet Count 35 K/UL (150-450) 23 K/UL (150-450) Mean Platelet Volume 10.0 FL (6.5-10.1) 9.0 FL (6.5-10.1) Neutrophils (%) (Auto) % (45.0-75.0) % (45.0-75.0) Lymphocytes (%) (Auto) % (20.0-45.0) % (20.0-45.0) Monocytes (%) (Auto) % (1.0-10.0) % (1.0-10.0) Eosinophils (%) (Auto) % (0.0-3.0) % (0.0-3.0) Basophils (%) (Auto) % (0.0-2.0) % (0.0-2.0) Differential Total Cells Counted 100 100 Neutrophils % (Manual) 89 % (45-75) 86 % (45-75) Lymphocytes % (Manual) 6 % (20-45) 10 % (20-45) Monocytes % (Manual) 4 % (1-10) 4 % (1-10) Eosinophils % (Manual) 1 % (0-3) 0 % (0-3) Basophils % (Manual) 0 % (0-2) 0 % (0-2) Band Neutrophils 0 % (0-8) 0 % (0-8) Platelet Estimate Decreased Decreased Platelet Morphology Normal Normal Hypochromasia 1+ Anisocytosis 1+ 1+ Vancomycin Level Trough 22.1 ug/mL (5.0-12.0) Macrocytosis 1+ Total Bilirubin 12.7 MG/DL (0.2-1.0) Direct Bilirubin 11.1 MG/DL (0.0-0.3) Aspartate Amino Transf (AST/SGOT) 35 U/L (15-37) Alanine Aminotransferase (ALT/SGPT) 30 U/L (12-78) Alkaline Phosphatase 85 U/L (46-116) Total Protein 4.7 G/DL (6.4-8.2) Albumin 1.1 G/DL (3.4-5.0) Globulin 3.6 g/dL Albumin/Globulin Ratio 0.3 (1.0-2.7) HIV (1&2) Antibody Rapid Negative (NEGATIVE) Test 02/28/20 16:00 02/28/20 21:30 02/29/20 05:10 Vancomycin Level Trough 29.2 ug/mL (5.0-12.0) 19.6 ug/mL (5.0-12.0) White Blood Count 3.4 K/UL (4.8-10.8) Red Blood Count 3.33 M/UL (4.70-6.10) Hemoglobin 10.0 G/DL (14.2-18.0) Hematocrit 29.8 % (42.0-52.0) Mean Corpuscular Volume 89 FL (80-99) Mean Corpuscular Hemoglobin 29.9 PG (27.0-31.0) Mean Corpuscular Hemoglobin Concent 33.5 G/DL (32.0-36.0) Red Cell Distribution Width 14.3 % (11.6-14.8) Platelet Count 15 K/UL (150-450) Mean Platelet Volume 12.7 FL (6.5-10.1) Neutrophils (%) (Auto) % (45.0-75.0) Lymphocytes (%) (Auto) % (20.0-45.0) Monocytes (%) (Auto) % (1.0-10.0) Eosinophils (%) (Auto) % (0.0-3.0) Basophils (%) (Auto) % (0.0-2.0) Differential Total Cells Counted 100 Neutrophils % (Manual) 88 % (45-75) Lymphocytes % (Manual) 7 % (20-45) Monocytes % (Manual) 3 % (1-10) Eosinophils % (Manual) 1 % (0-3) Basophils % (Manual) 1 % (0-2) Band Neutrophils 0 % (0-8) Platelet Estimate Decreased Platelet Morphology Normal Hypochromasia 2+ Anisocytosis 1+ Sodium Level 134 MMOL/L (136-145) Potassium Level 3.3 MMOL/L (3.5-5.1) Chloride Level 99 MMOL/L (98-107) Carbon Dioxide Level 30 MMOL/L (21-32) Anion Gap 5 mmol/L (5-15) Blood Urea Nitrogen 19 mg/dL (7-18) Creatinine 0.6 MG/DL (0.55-1.30) Estimat Glomerular Filtration Rate > 60 mL/min (>60) Glucose Level 189 MG/DL (74-106) Calcium Level 7.0 MG/DL (8.5-10.1) Phosphorus Level 1.4 MG/DL (2.5-4.9) Magnesium Level 1.7 MG/DL (1.8-2.4) Height (Feet): 5 Height (Inches): 5.00 Weight (Pounds): 122 Objective Physical Exam: Vitals: reviewed General: NAD HEENT: nc, at ++Ogt Neck: supple Chest: in the icu, remains intubated++ Cardiovascular: RRR, no s3, s4 Abdomen: soft, nontender, nd Extremities: no cce, normal range of motion Neuro: alert to self : Montez Maradiaga MD February 29, 2020 11:21
--- NOTE | 2020-02-29 11:51 | General Progress Note ---
Assessment/Plan Assessment/Plan: 74 y/o M from [place], PMH HTN, DMT2, dementia, Alzheimers dx, h/o CVA/TIA, h/o DVT, schizophrenia who presents for Fever. In the ED, pt found to be septic, Tm 100.9 , RR22, WBC 7.3, Lactic acid 2.8, and ABG revealed acute hypoxic respiratory failure. Pt was intubated and will be admitted to ICU for acute hypoxic respiratory failure and pending COVID r/o. #Septic shock 2/2 #Acute Hypoxic Respiratory Failure #HCAP #COVID positive #Lactic Acidosis -Appreciate ICU level care -pt intubated in ED, 02/21 -vent management per CCU team/Pulm, wean as tolerated -Cont. COVID isolation protocol -COVID PCR positive -elevated d-dimer and BNP likely 2/2 above -cont. pressure support, Levophed and Norepi, wean as tolerated -cont. fentanyl, versed for sedation, wean as tolerated -BCx diptheroids -echo ordered, on hold due to COVID -d/w Pulm, Dr. Bland -ID: plaquenil (end date 02/27, last dose today), vanc, zosyn, doxycycline #Thrombocytopenia #Anemia of chronic dx -likely multifactorial, 2/2 to above/sepsis/COVID -Epogen, iron not indicated at this time given acute infection -hep panel and HIV panel ordered -abd US ordered -peripheral blood smear ordered -hit panel pending -transfuse plts for <20K and fever or if plts <10K and afebrile -Heme consulted, Dr. Verde: ok for ppx if plts >50k w/either heparin or lovenox #Jaundiced #Hyperbilirubinemia -elevated t bili, direct bili -AST/ALT normal -GI consulted, Dr. Howe, recs appreciated #Hypokalemia #Hypernatremia - improved -likely 2/2 dehydration -replace K, daily BMP, replace PRN -nephro following, recs appreciated #Type 2 DM -holding home metformin -accuchecks q6h -ISS changed from sensitive to moderate #HTN -holding home bp meds given septic shock -holding Lasix 20 mg q daily, benazepril 5 mg q daily #Alzheimer disease #Dementia #Schizophrenia #Bipolar dx -reviewed MAR from [facility], no home meds for schizophrenia/bipolar dx noted -holding home aricept given clinical picture DVT PPx: lovenox Time spent: 61 mins, 32 mins spent on critical care time. Critical Care Services performed include: Telemetry Review Hemodynamic measurement interpretation Laboratory data review and interpretation Medication adjustments Discussion of patient's care with ICU team, Nursing staff, Heme, Dr. Verde, GI Dr. Howe. Time of note may not reflect time of encounter. Subjective Allergies: Coded Allergies: No Known Allergies (Unverified , 01/19/19) Subjective F/u for acute respiratory failure, COVID+, s/p intubation on 02/21. Remains intubated/sedated. SBP 90's on pressure support. Plts 15 Unable to obtain ROS due to clinical picture. Objective Last 24 Hour Vital Signs Date Time Temp Pulse Resp B/P (MAP) Pulse Ox O2 Delivery O2 Flow Rate FiO2 02/29/20 10:15 20 Mechanical Ventilator 100 02/29/20 10:00 20 Mechanical Ventilator 100 02/29/20 09:45 20 Mechanical Ventilator 100 02/29/20 09:30 128 28 87/51 (63) 93 02/29/20 09:30 90/52 02/29/20 09:30 20 Mechanical Ventilator 100 02/29/20 09:15 87/51 02/29/20 09:15 20 Mechanical Ventilator 100 02/29/20 09:00 129 28 84/49 (61) 93 02/29/20 09:00 84/49 02/29/20 09:00 20 Mechanical Ventilator 100 02/29/20 08:45 80/54 02/29/20 08:45 20 Mechanical Ventilator 100 02/29/20 08:30 130 25 93/52 (66) 92 02/29/20 08:30 90/54 02/29/20 08:30 20 Mechanical Ventilator 100 02/29/20 08:13 90/52 02/29/20 08:12 93/52 02/29/20 08:12 20 Mechanical Ventilator 100 02/29/20 08:00 Mechanical Ventilator 02/29/20 08:00 20 Mechanical Ventilator 100 02/29/20 08:00 99.4 128 25 90/54 (66) 92 02/29/20 08:00 100 02/29/20 07:30 128 27 85/51 (62) 92 02/29/20 07:15 84/50 02/29/20 07:13 133 29 100 02/29/20 07:00 125 24 84/50 (61) 93 02/29/20 07:00 20 Mechanical Ventilator 100 02/29/20 06:30 78 23 02/29/20 06:30 130 26 81/50 (60) 93 02/29/20 06:30 78 23 02/29/20 06:00 134 26 86/51 (63) 93 02/29/20 06:00 24 Mechanical Ventilator 100 02/29/20 06:00 136 27 103/52 (69) 92 02/29/20 05:48 137 26 80/50 (60) 93 02/29/20 05:30 136 26 100 02/29/20 05:30 139 27 89/45 (60) 80 02/29/20 05:00 24 Mechanical Ventilator 100 02/29/20 05:00 136 27 103/52 (69) 92 02/29/20 04:30 142 34 123/58 (79) 82 02/29/20 04:00 98.8 132 30 121/70 (87) 87 02/29/20 04:00 Mechanical Ventilator 02/29/20 04:00 80 02/29/20 04:00 20 Mechanical Ventilator 100 02/29/20 04:00 112 02/29/20 03:30 125 23 131/62 (85) 90 02/29/20 03:00 123 20 132/67 (88) 91 02/29/20 03:00 20 Mechanical Ventilator 80 02/29/20 02:55 125 34 100 02/29/20 02:30 123 24 136/63 (87) 82 02/29/20 02:30 123 24 130/63 (85) 82 02/29/20 02:15 120 21 116/62 (80) 85 02/29/20 02:00 121 22 100/56 (71) 86 02/29/20 02:00 116/62 02/29/20 02:00 24 Mechanical Ventilator 80 02/29/20 01:45 116 23 129/64 (85) 86 02/29/20 01:30 118 19 116/65 (82) 88 02/29/20 01:30 97 24 60 02/29/20 01:30 118 19 116/65 (82) 88 02/29/20 01:15 117 20 90 02/29/20 01:00 119 24 137/65 (89) 88 02/29/20 01:00 Mechanical Ventilator 02/29/20 01:00 137/65 02/29/20 01:00 20 Mechanical Ventilator 02/29/20 01:00 119 24 137/65 (89) 88 02/29/20 00:45 116 23 117/69 (85) 84 02/29/20 00:30 104 23 120/79 (93) 84 02/29/20 00:30 104 23 120/79 (93) 84 02/29/20 00:15 96 15 114/63 (80) 93 02/29/20 00:00 Mechanical Ventilator 02/29/20 00:00 90 22 127/69 (88) 99 02/29/20 00:00 114/63 02/29/20 00:00 20 Mechanical Ventilator 60 02/29/20 00:00 98.5 90 22 127/69 (88) 99 02/29/20 00:00 98 02/29/20 00:00 80 02/28/20 23:30 91 22 60 02/28/20 23:00 119/68 02/28/20 23:00 22 Mechanical Ventilator 60 02/28/20 23:00 92 23 122/68 (86) 98 02/28/20 22:30 91 22 106/60 (75) 97 02/28/20 22:00 96 24 118/67 (84) 97 02/28/20 22:00 109/61 02/28/20 22:00 24 Mechanical Ventilator 60 02/28/20 21:30 97 23 121/65 (83) 97 02/28/20 21:30 91 20 60 02/28/20 21:00 94 24 115/60 (78) 96 02/28/20 21:00 114/64 02/28/20 21:00 22 Mechanical Ventilator 60 02/28/20 20:30 91 23 99/55 (70) 97 02/28/20 20:00 98.5 93 22 99/55 (70) 98 02/28/20 20:00 Mechanical Ventilator 02/28/20 20:00 100 02/28/20 20:00 100/54 02/28/20 20:00 22 Mechanical Ventilator 80 02/28/20 20:00 80 02/28/20 19:53 120/70 02/28/20 19:53 20 Mechanical Ventilator 60 02/28/20 19:30 90 23 60 02/28/20 19:00 94 24 103/56 (72) 98 02/28/20 19:00 120/70 02/28/20 19:00 20 Mechanical Ventilator 60 02/28/20 18:22 99.8 02/28/20 18:00 103 24 117/64 (81) 95 02/28/20 18:00 118/68 02/28/20 18:00 20 Mechanical Ventilator 60 02/28/20 17:30 102 24 118/64 (82) 94 02/28/20 17:03 94 21 60 02/28/20 17:00 113/66 02/28/20 17:00 20 Mechanical Ventilator 60 02/28/20 17:00 100.5 96 23 113/66 (82) 95 02/28/20 16:30 93 18 102/57 (72) 100 02/28/20 16:00 98 02/28/20 16:00 101/56 02/28/20 16:00 20 Mechanical Ventilator 60 02/28/20 16:00 Mechanical Ventilator 02/28/20 16:00 80 02/28/20 16:00 98 23 101/56 (71) 99 02/28/20 15:30 100 23 102/54 (70) 99 02/28/20 15:00 104/62 02/28/20 15:00 20 Mechanical Ventilator 60 02/28/20 15:00 103 22 104/62 (76) 98 02/28/20 14:55 106 22 80 02/28/20 14:30 104 22 102/55 (71) 98 02/28/20 14:00 105 24 102/55 (71) 95 02/28/20 14:00 102/55 02/28/20 14:00 20 Mechanical Ventilator 60 02/28/20 13:30 107 24 107/55 (72) 95 02/28/20 13:18 106 24 80 02/28/20 13:00 93/56 02/28/20 13:00 25 Mechanical Ventilator 60 02/28/20 13:00 108 24 93/56 (68) 98 02/28/20 12:55 116/63 02/28/20 12:30 113 27 111/58 (75) 97 02/28/20 12:00 113/57 02/28/20 12:00 20 Mechanical Ventilator 60 02/28/20 12:00 80 02/28/20 12:00 Mechanical Ventilator 02/28/20 12:00 108 02/28/20 12:00 112 25 113/57 (75) 98 Intake and Output 02/28/20 02/29/20 19:00 07:00 Intake Total 1943.75 ml 2195.000 ml Output Total 900 ml 910 ml Balance 1043.75 ml 1285.000 ml Free Water 110 ml 150 ml IV Total 1183.75 ml 1445.000 ml Tube Feeding 650 ml 600 ml Output Urine Total 900 ml 910 ml Laboratory Tests 02/28/20 16:00: Vancomycin Level Trough 29.2H, Heparin-PF4 Antibody Screen [Pending], Hepatitis A IgM Antibody [Pending], Hepatitis B Surface Antigen [Pending], Hepatitis B Core IgM Antibody [Pending], Hepatitis C Antibody [Pending] 02/28/20 21:30: Vancomycin Level Trough 19.6H 02/29/20 05:10: White Blood Count 3.4#L, Red Blood Count 3.33L, Hemoglobin 10.0L, Hematocrit 29.8L, Mean Corpuscular Volume 89, Mean Corpuscular Hemoglobin 29.9, Mean Corpuscular Hemoglobin Concent 33.5, Red Cell Distribution Width 14.3, Platelet Count 15L, Mean Platelet Volume 12.7H, Neutrophils (%) (Auto) , Lymphocytes (%) (Auto) , Monocytes (%) (Auto) , Eosinophils (%) (Auto) , Basophils (%) (Auto) , Differential Total Cells Counted 100, Neutrophils % (Manual) 88H, Lymphocytes % (Manual) 7L, Monocytes % (Manual) 3, Eosinophils % (Manual) 1, Basophils % ( Manual) 1, Band Neutrophils 0, Platelet Estimate DecreasedL, Platelet Morphology Normal, Hypochromasia 2+, Anisocytosis 1+, Sodium Level 134L, Potassium Level 3.3L, Chloride Level 99, Carbon Dioxide Level 30, Anion Gap 5, Blood Urea Nitrogen 19H, Creatinine 0.6, Estimat Glomerular Filtration Rate > 60 , Glucose Level 189H, Calcium Level 7.0L, Phosphorus Level 1.4L, Magnesium Level 1.7L Height (Feet): 5 Height (Inches): 5.00 Weight (Pounds): 122 Objective General: intubated, sedated, jaundiced HEENT: NCAT, ETT in place, OG tube in place CV: Sinus Tachycardic on tele, HR 128 Pulm: equal rise in lungs b/l GI: abd appears non-distended Ext: No lower extremity edema bilaterally Gosia Nunez M.D. February 29, 2020 11:50
--- NOTE | 2020-02-29 12:17 | Pulmonology Progress Note ---
Assessment/Plan Assessment/Plan IMPRESSION: 1. Respiratory failure. 2. Bilateral pneumonia. + COVID 19 3. Pulmonary edema. 4. Diabetes mellitus. DISCUSSION: Positive COVID 19 pcr The patient is critically ill at this point in time. Poor prognosis Increasing pressor requirements Noted Cardiology consultation. Continue broad-spectrum antibiotics. Continue respiratory support; will adjust vent settings I will follow carefully. Andrea Bland M.D. Subjective ROS Limited/Unobtainable: No Interval Events: Remains intubtaed; was intubated on 02/22/20 Constitutional: Reports: fever, other - on vent and pressors HEENT: Repors: no symptoms Respiratory: Reports: no symptoms Cardiovascular: Reports: no symptoms Gastrointestinal/Abdominal: Denies: nausea, vomiting, diarrhea Genitourinary: Reports: no symptoms Psychiatric: Reports: other - NA Skin: Denies: rash Endocrine: Reports: no symptoms Musculoskeletal: Reports: other - NA Allergies: Coded Allergies: No Known Allergies (Unverified , 01/19/19) All Systems: reviewed and negative except above Subjective seen and evaluated Discussed with RN Objective Last 24 Hour Vital Signs Date Time Temp Pulse Resp B/P (MAP) Pulse Ox O2 Delivery O2 Flow Rate FiO2 02/29/20 10:15 20 Mechanical Ventilator 100 02/29/20 10:00 20 Mechanical Ventilator 100 02/29/20 09:45 20 Mechanical Ventilator 02/29/20 09:30 128 28 87/51 (63) 93 02/29/20 09:30 90/52 02/29/20 09:30 20 Mechanical Ventilator 100 02/29/20 09:15 87/51 02/29/20 09:15 20 Mechanical Ventilator 100 02/29/20 09:00 129 28 84/49 (61) 93 02/29/20 09:00 84/49 02/29/20 09:00 20 Mechanical Ventilator 100 02/29/20 08:45 80/54 02/29/20 08:45 20 Mechanical Ventilator 100 02/29/20 08:30 130 25 93/52 (66) 92 02/29/20 08:30 90/54 02/29/20 08:30 20 Mechanical Ventilator 100 02/29/20 08:13 90/52 02/29/20 08:12 93/52 02/29/20 08:12 20 Mechanical Ventilator 100 02/29/20 08:00 Mechanical Ventilator 02/29/20 08:00 20 Mechanical Ventilator 100 02/29/20 08:00 99.4 128 25 90/54 (66) 92 02/29/20 08:00 100 02/29/20 07:30 128 27 85/51 (62) 92 02/29/20 07:15 84/50 02/29/20 07:13 133 29 100 02/29/20 07:00 125 24 84/50 (61) 93 02/29/20 07:00 20 Mechanical Ventilator 100 02/29/20 06:30 78 23 02/29/20 06:30 130 26 81/50 (60) 93 02/29/20 06:30 78 23 02/29/20 06:00 134 26 86/51 (63) 93 02/29/20 06:00 24 Mechanical Ventilator 100 02/29/20 06:00 136 27 103/52 (69) 92 02/29/20 05:48 137 26 80/50 (60) 93 02/29/20 05:30 136 26 100 02/29/20 05:30 139 27 89/45 (60) 80 02/29/20 05:00 24 Mechanical Ventilator 100 02/29/20 05:00 136 27 103/52 (69) 92 02/29/20 04:30 142 34 123/58 (79) 82 02/29/20 04:00 98.8 132 30 121/70 (87) 87 02/29/20 04:00 Mechanical Ventilator 02/29/20 04:00 80 02/29/20 04:00 20 Mechanical Ventilator 100 02/29/20 04:00 112 02/29/20 03:30 125 23 131/62 (85) 90 02/29/20 03:00 123 20 132/67 (88) 91 02/29/20 03:00 20 Mechanical Ventilator 80 02/29/20 02:55 125 34 100 02/29/20 02:30 123 24 136/63 (87) 82 02/29/20 02:30 123 24 130/63 (85) 82 02/29/20 02:15 120 21 116/62 (80) 85 02/29/20 02:00 121 22 100/56 (71) 86 02/29/20 02:00 116/62 02/29/20 02:00 24 Mechanical Ventilator 80 02/29/20 01:45 116 23 129/64 (85) 86 02/29/20 01:30 118 19 116/65 (82) 88 02/29/20 01:30 97 24 60 02/29/20 01:30 118 19 116/65 (82) 88 02/29/20 01:15 117 20 90 02/29/20 01:00 119 24 137/65 (89) 88 02/29/20 01:00 Mechanical Ventilator 02/29/20 01:00 137/65 02/29/20 01:00 20 Mechanical Ventilator 02/29/20 01:00 119 24 137/65 (89) 88 02/29/20 00:45 116 23 117/69 (85) 84 02/29/20 00:30 104 23 120/79 (93) 84 02/29/20 00:30 104 23 120/79 (93) 84 02/29/20 00:15 96 15 114/63 (80) 93 02/29/20 00:00 Mechanical Ventilator 02/29/20 00:00 90 22 127/69 (88) 99 02/29/20 00:00 114/63 02/29/20 00:00 20 Mechanical Ventilator 60 02/29/20 00:00 98.5 90 22 127/69 (88) 99 02/29/20 00:00 98 02/29/20 00:00 80 02/28/20 23:30 91 22 60 02/28/20 23:00 119/68 02/28/20 23:00 22 Mechanical Ventilator 60 02/28/20 23:00 92 23 122/68 (86) 98 02/28/20 22:30 91 22 106/60 (75) 97 02/28/20 22:00 96 24 118/67 (84) 97 02/28/20 22:00 109/61 02/28/20 22:00 24 Mechanical Ventilator 60 02/28/20 21:30 97 23 121/65 (83) 97 02/28/20 21:30 91 20 60 02/28/20 21:00 94 24 115/60 (78) 96 02/28/20 21:00 114/64 02/28/20 21:00 22 Mechanical Ventilator 60 02/28/20 20:30 91 23 99/55 (70) 97 02/28/20 20:00 98.5 93 22 99/55 (70) 98 02/28/20 20:00 Mechanical Ventilator 02/28/20 20:00 100 02/28/20 20:00 100/54 02/28/20 20:00 22 Mechanical Ventilator 80 02/28/20 20:00 80 02/28/20 19:53 120/70 02/28/20 19:53 20 Mechanical Ventilator 60 02/28/20 19:30 90 23 60 02/28/20 19:00 94 24 103/56 (72) 98 02/28/20 19:00 120/70 02/28/20 19:00 20 Mechanical Ventilator 60 02/28/20 18:22 99.8 02/28/20 18:00 103 24 117/64 (81) 95 02/28/20 18:00 118/68 02/28/20 18:00 20 Mechanical Ventilator 60 02/28/20 17:30 102 24 118/64 (82) 94 02/28/20 17:03 94 21 60 02/28/20 17:00 113/66 02/28/20 17:00 20 Mechanical Ventilator 60 02/28/20 17:00 100.5 96 23 113/66 (82) 95 02/28/20 16:30 93 18 102/57 (72) 100 02/28/20 16:00 98 02/28/20 16:00 101/56 02/28/20 16:00 20 Mechanical Ventilator 60 02/28/20 16:00 Mechanical Ventilator 02/28/20 16:00 80 02/28/20 16:00 98 23 101/56 (71) 99 02/28/20 15:30 100 23 102/54 (70) 99 02/28/20 15:00 104/62 02/28/20 15:00 20 Mechanical Ventilator 60 02/28/20 15:00 103 22 104/62 (76) 98 02/28/20 14:55 106 22 80 02/28/20 14:30 104 22 102/55 (71) 98 02/28/20 14:00 105 24 102/55 (71) 95 02/28/20 14:00 102/55 02/28/20 14:00 20 Mechanical Ventilator 60 02/28/20 13:30 107 24 107/55 (72) 95 02/28/20 13:18 106 24 80 02/28/20 13:00 93/56 02/28/20 13:00 25 Mechanical Ventilator 60 02/28/20 13:00 108 24 93/56 (68) 98 02/28/20 12:55 116/63 02/28/20 12:30 113 27 111/58 (75) 97 Intake and Output 02/28/20 02/29/20 19:00 07:00 Intake Total 1943.75 ml 2195.000 ml Output Total 900 ml 910 ml Balance 1043.75 ml 1285.000 ml Free Water 110 ml 150 ml IV Total 1183.75 ml 1445.000 ml Tube Feeding 650 ml 600 ml Output Urine Total 900 ml 910 ml General Appearance: no acute distress HEENT: normocephalic, atraumatic, anicteric, other - oral - intubated Respiratory/Chest: chest wall non-tender, decreased breath sounds Cardiovascular: normal peripheral pulses Abdomen: normal bowel sounds, soft, non tender, no organomegaly, non distended Genitourinary: other - + rush - urine clear Extremities: no cyanosis Skin: no rash Neurologic/Psychiatric: other - weak, sedated Lymphatic: no neck adenopathy Musculoskeletal: no effusion Laboratory Tests 02/28/20 16:00: Vancomycin Level Trough 29.2H, Heparin-PF4 Antibody Screen [Pending], Hepatitis A IgM Antibody [Pending], Hepatitis B Surface Antigen [Pending], Hepatitis B Core IgM Antibody [Pending], Hepatitis C Antibody [Pending] 02/28/20 21:30: Vancomycin Level Trough 19.6H 02/29/20 05:10: White Blood Count 3.4#L, Red Blood Count 3.33L, Hemoglobin 10.0L, Hematocrit 29.8L, Mean Corpuscular Volume 89, Mean Corpuscular Hemoglobin 29.9, Mean Corpuscular Hemoglobin Concent 33.5, Red Cell Distribution Width 14.3, Platelet Count 15L, Mean Platelet Volume 12.7H, Neutrophils (%) (Auto) , Lymphocytes (%) (Auto) , Monocytes (%) (Auto) , Eosinophils (%) (Auto) , Basophils (%) (Auto) , Differential Total Cells Counted 100, Neutrophils % (Manual) 88H, Lymphocytes % (Manual) 7L, Monocytes % (Manual) 3, Eosinophils % (Manual) 1, Basophils % ( Manual) 1, Band Neutrophils 0, Platelet Estimate DecreasedL, Platelet Morphology Normal, Hypochromasia 2+, Anisocytosis 1+, Sodium Level 134L, Potassium Level 3.3L, Chloride Level 99, Carbon Dioxide Level 30, Anion Gap 5, Blood Urea Nitrogen 19H, Creatinine 0.6, Estimat Glomerular Filtration Rate > 60 , Glucose Level 189H, Calcium Level 7.0L, Phosphorus Level 1.4L, Magnesium Level 1.7L 02/29/20 11:50: Haptoglobin [Pending], Prothrombin Time [Pending], Prothromb Time International Ratio [Pending], Fibrinogen [Pending], Iron Level [Pending], Unsaturated Iron Binding [Pending], Ferritin [Pending] Current Medications Medications (Trade) Dose Ordered Sig/Cirilo Route PRN Reason Start Time Stop Time Status Last Admin Dose Admin Acetaminophen (Tylenol) 650 mg Q4H PRN ORAL Fever 02/22/20 14:15 03/23/20 14:14 02/28/20 17:52 Acetaminophen (Tylenol) 650 mg Q4H PRN ORAL Mild Pain (Pain Scale 1-3) 02/22/20 14:15 03/23/20 14:14 02/29/20 08:15 Acetaminophen (Tylenol) 650 mg Q4H PRN RECTAL Mild Pain (Pain Scale 1-3) 02/22/20 14:15 03/23/20 14:14 02/22/20 21:28 Acetaminophen (Tylenol) 650 mg Q4H PRN RECTAL FEVER 02/22/20 14:15 03/23/20 14:14 Chlorhexidine Gluconate (Maira-Hex 2%) 1 applic DAILY@1999 TOPIC 02/23/20 20:00 05/23/20 19:59 02/28/20 21:26 Dextrose (Dextrose 50%) 25 ml Q30M PRN IV Hypoglycemia 02/23/20 09:00 05/23/20 08:59 Dextrose (Dextrose 50%) 50 ml Q30M PRN IV Hypoglycemia 02/23/20 09:00 05/23/20 08:59 Diphenhydramine HCl (Benadryl) 25 mg Q6H PRN ORAL Itching/Pruritis 02/22/20 14:15 03/23/20 14:14 02/26/20 01:34 Doxycycline Monohydrate (Doxycycline Monohydrate) 100 mg EVERY 12 HOURS ORAL 02/24/20 09:00 03/02/20 08:59 02/29/20 08:13 Enoxaparin Sodium (Lovenox) 40 mg Q24H SUBQ 02/22/20 17:00 05/22/20 16:59 02/24/20 17:37 Fentanyl Citrate 2500 mcg/Sodium Chloride 250 ml @ 0 mls/hr Q24H IV 02/23/20 10:00 03/01/20 09:59 02/29/20 08:12 Insulin Aspart (NovoLOG) Q6HR SUBQ 02/28/20 18:00 05/28/20 17:59 02/28/20 18:48 Lorazepam (Ativan 2mg/ml 1ml) 1 mg Q6H PRN IV For Anxiety 02/26/20 08:30 03/04/20 08:29 02/29/20 04:46 Magnesium Sulfate 100 ml @ 100 mls/hr Q1H IVPB 02/29/20 11:30 02/29/20 13:29 02/29/20 11:37 Metoclopramide HCl (Reglan) 5 mg Q6H PRN IVP Nausea & Vomiting 02/29/20 10:30 03/30/20 10:29 Midazolam HCl 100 ml @ 0 mls/hr Q24H IV 02/26/20 15:06 05/26/20 15:05 02/26/20 15:48 Norepinephrine Bitartrate 8 mg/ Dextrose 500 ml @ 0 mls/hr Q24H IV 02/23/20 19:01 03/24/20 19:00 02/29/20 08:13 Pantoprazole (Protonix) 40 mg DAILY IVP 02/23/20 09:30 03/24/20 09:29 02/29/20 08:13 Phenylephrine HCl 50 mg/Dextrose 250 ml @ 6 mls/hr Q24H IV 02/29/20 10:45 03/30/20 10:44 Piperacillin Sod/ Tazobactam Sod 3.375 gm/Dextrose 110 ml @ 27.5 mls/hr Q8H IVPB 02/23/20 01:00 03/01/20 00:59 02/29/20 08:12 Potassium Phosphate 250 ml @ 62.5 mls/hr Q4H IVPB 02/29/20 13:00 02/29/20 20:59 Potassium Chloride 100 ml @ 50 mls/hr Q2H IVPB 02/29/20 11:30 02/29/20 15:29 02/29/20 11:38 Vancomycin HCl (Vanco rx to dose) 1 ea DAILY PRN MISC Per rx protocol 02/22/20 14:30 03/23/20 14:29 Vancomycin HCl 1 gm/Dextrose 275 ml @ 183.708 mls/hr Q8H IVPB 02/28/20 21:00 03/04/20 20:59 02/29/20 04:50 Andrea Bland MD February 29, 2020 12:16
[2020-02-29 12:38] LABS: INR 1.6 (0.9-1.1)
[2020-02-29 12:46] LABS: % IRON SATURATION 14 % (15-50); IRON 10 ug/dL (50-175); TOTAL IRON BINDING CAPACITY 73 ug/dL (250-450)
[2020-02-29 12:51] LABS: FERRITIN 1413 NG/ML (8-388)
[2020-02-29] MEDS: Phenylephrine 50 MG in D5W 245 ML IV SCH ×2 (12:58→22:44)
[2020-02-29] MEDS: Potassium Phosphate 15mm/250ml 250 ML IVPB SCH ×2 (13:18→17:36)
--- NOTE | 2020-02-29 14:00 | Cardiac Electrophysiology PN ---
Assessment/Plan Assessment/Plan 1. Respiratory failure due to COVID pneumonia However, cannot rule out underlying CHF as BNP is more than 2000. Echo EF 50%. His white count however is only 7.2 with lymphopenia On the Vent 100% Fio2, PEEP 5 2. Septic shock likely due to pneumonia and dehydration. Maxed out on Levo and Abx. Being added on Fredrick 3. Hypernatremia, resolved with IV fluids. 4. Dehydration. Subjective Subjective Maxed out on Levo on the vent with Fio2 100% in ICU. EF 50%. Covid PCR is positive. Being started on Fredrick. Objective Last 24 Hour Vital Signs Date Time Temp Pulse Resp B/P (MAP) Pulse Ox O2 Delivery O2 Flow Rate FiO2 02/29/20 13:30 108 29 99/60 (73) 98 02/29/20 13:00 131 32 91/54 (66) 97 02/29/20 12:58 125 80/53 02/29/20 12:30 126 29 88/52 (64) 96 02/29/20 12:00 Mechanical Ventilator 02/29/20 12:00 99.3 132 29 87/56 (66) 95 02/29/20 12:00 100 02/29/20 12:00 86/51 02/29/20 12:00 20 Mechanical Ventilator 100 02/29/20 11:30 134 29 96/58 (71) 92 02/29/20 11:15 20 Mechanical Ventilator 100 02/29/20 11:00 97/57 02/29/20 11:00 20 Mechanical Ventilator 100 02/29/20 11:00 133 29 108/55 (72) 90 02/29/20 10:30 128 30 97/55 (69) 93 02/29/20 10:15 20 Mechanical Ventilator 100 02/29/20 10:00 92/57 02/29/20 10:00 20 Mechanical Ventilator 100 02/29/20 10:00 127 28 89/57 (68) 93 02/29/20 09:45 89/57 02/29/20 09:45 20 Mechanical Ventilator 100 02/29/20 09:30 128 28 87/51 (63) 93 02/29/20 09:30 90/52 02/29/20 09:30 20 Mechanical Ventilator 100 02/29/20 09:15 87/51 02/29/20 09:15 20 Mechanical Ventilator 100 02/29/20 09:00 129 28 84/49 (61) 93 02/29/20 09:00 84/49 02/29/20 09:00 20 Mechanical Ventilator 100 02/29/20 08:45 80/54 02/29/20 08:45 20 Mechanical Ventilator 100 02/29/20 08:30 130 25 93/52 (66) 92 02/29/20 08:30 90/54 02/29/20 08:30 20 Mechanical Ventilator 100 02/29/20 08:13 90/52 02/29/20 08:12 93/52 02/29/20 08:12 20 Mechanical Ventilator 100 02/29/20 08:00 Mechanical Ventilator 02/29/20 08:00 20 Mechanical Ventilator 100 02/29/20 08:00 99.4 128 25 90/54 (66) 92 02/29/20 08:00 100 02/29/20 07:30 128 27 85/51 (62) 92 02/29/20 07:15 84/50 02/29/20 07:13 133 29 100 02/29/20 07:00 125 24 84/50 (61) 93 02/29/20 07:00 20 Mechanical Ventilator 100 02/29/20 06:30 78 23 02/29/20 06:30 130 26 81/50 (60) 93 02/29/20 06:30 78 23 02/29/20 06:00 134 26 86/51 (63) 93 02/29/20 06:00 24 Mechanical Ventilator 02/29/20 06:00 136 27 103/52 (69) 92 02/29/20 05:48 137 26 80/50 (60) 93 02/29/20 05:30 136 26 100 02/29/20 05:30 139 27 89/45 (60) 80 02/29/20 05:00 24 Mechanical Ventilator 100 02/29/20 05:00 136 27 103/52 (69) 92 02/29/20 04:30 142 34 123/58 (79) 82 02/29/20 04:00 98.8 132 30 121/70 (87) 87 02/29/20 04:00 Mechanical Ventilator 02/29/20 04:00 80 02/29/20 04:00 20 Mechanical Ventilator 100 02/29/20 04:00 112 02/29/20 03:30 125 23 131/62 (85) 90 02/29/20 03:00 123 20 132/67 (88) 91 02/29/20 03:00 20 Mechanical Ventilator 80 02/29/20 02:55 125 34 100 02/29/20 02:30 123 24 136/63 (87) 82 02/29/20 02:30 123 24 130/63 (85) 82 02/29/20 02:15 120 21 116/62 (80) 85 02/29/20 02:00 121 22 100/56 (71) 86 02/29/20 02:00 116/62 02/29/20 02:00 24 Mechanical Ventilator 80 02/29/20 01:45 116 23 129/64 (85) 86 02/29/20 01:30 118 19 116/65 (82) 88 02/29/20 01:30 97 24 60 02/29/20 01:30 118 19 116/65 (82) 88 02/29/20 01:15 117 20 90 02/29/20 01:00 119 24 137/65 (89) 88 02/29/20 01:00 Mechanical Ventilator 02/29/20 01:00 137/65 02/29/20 01:00 20 Mechanical Ventilator 02/29/20 01:00 119 24 137/65 (89) 88 02/29/20 00:45 116 23 117/69 (85) 84 02/29/20 00:30 104 23 120/79 (93) 84 02/29/20 00:30 104 23 120/79 (93) 84 02/29/20 00:15 96 15 114/63 (80) 93 02/29/20 00:00 Mechanical Ventilator 02/29/20 00:00 90 22 127/69 (88) 99 02/29/20 00:00 114/63 02/29/20 00:00 20 Mechanical Ventilator 60 02/29/20 00:00 98.5 90 22 127/69 (88) 99 02/29/20 00:00 98 02/29/20 00:00 80 02/28/20 23:30 91 22 60 02/28/20 23:00 119/68 02/28/20 23:00 22 Mechanical Ventilator 60 02/28/20 23:00 92 23 122/68 (86) 98 02/28/20 22:30 91 22 106/60 (75) 97 02/28/20 22:00 96 24 118/67 (84) 97 02/28/20 22:00 109/61 02/28/20 22:00 24 Mechanical Ventilator 60 02/28/20 21:30 97 23 121/65 (83) 97 02/28/20 21:30 91 20 60 02/28/20 21:00 94 24 115/60 (78) 96 02/28/20 21:00 114/64 02/28/20 21:00 22 Mechanical Ventilator 60 02/28/20 20:30 91 23 99/55 (70) 97 02/28/20 20:00 98.5 93 22 99/55 (70) 98 02/28/20 20:00 Mechanical Ventilator 02/28/20 20:00 100 02/28/20 20:00 100/54 02/28/20 20:00 22 Mechanical Ventilator 80 02/28/20 20:00 80 02/28/20 19:53 120/70 02/28/20 19:53 20 Mechanical Ventilator 60 02/28/20 19:30 90 23 60 02/28/20 19:00 94 24 103/56 (72) 98 02/28/20 19:00 120/70 02/28/20 19:00 20 Mechanical Ventilator 60 02/28/20 18:22 99.8 02/28/20 18:00 103 24 117/64 (81) 95 02/28/20 18:00 118/68 02/28/20 18:00 20 Mechanical Ventilator 60 02/28/20 17:30 102 24 118/64 (82) 94 02/28/20 17:03 94 21 60 02/28/20 17:00 113/66 02/28/20 17:00 20 Mechanical Ventilator 60 02/28/20 17:00 100.5 96 23 113/66 (82) 95 02/28/20 16:30 93 18 102/57 (72) 100 02/28/20 16:00 98 02/28/20 16:00 101/56 02/28/20 16:00 20 Mechanical Ventilator 60 02/28/20 16:00 Mechanical Ventilator 02/28/20 16:00 80 02/28/20 16:00 98 23 101/56 (71) 99 02/28/20 15:30 100 23 102/54 (70) 99 02/28/20 15:00 104/62 5/3/20 15:00 20 Mechanical Ventilator 60 02/28/20 15:00 103 22 104/62 (76) 98 02/28/20 14:55 106 22 80 02/28/20 14:30 104 22 102/55 (71) 98 02/28/20 14:00 105 24 102/55 (71) 95 02/28/20 14:00 102/55 02/28/20 14:00 20 Mechanical Ventilator 60 Intake and Output 02/28/20 02/29/20 19:00 07:00 Intake Total 1943.75 ml 2195.000 ml Output Total 900 ml 910 ml Balance 1043.75 ml 1285.000 ml Free Water 110 ml 150 ml IV Total 1183.75 ml 1445.000 ml Tube Feeding 650 ml 600 ml Output Urine Total 900 ml 910 ml Laboratory Tests Test 02/28/20 16:00 02/28/20 21:30 02/29/20 05:10 02/29/20 11:50 Vancomycin Level Trough 29.2 ug/mL (5.0-12.0) H 19.6 ug/mL (5.0-12.0) H Heparin-PF4 Antibody Screen 0.08 OD (<0.40) Hepatitis A IgM Antibody Pending Hepatitis B Surface Antigen Pending Hepatitis B Core IgM Antibody Pending Hepatitis C Antibody Pending White Blood Count 3.4 K/UL (4.8-10.8) #L Red Blood Count 3.33 M/UL (4.70-6.10) L Hemoglobin 10.0 G/DL (14.2-18.0) L Hematocrit 29.8 % (42.0-52.0) L Mean Corpuscular Volume 89 FL (80-99) Mean Corpuscular Hemoglobin 29.9 PG (27.0-31.0) Mean Corpuscular Hemoglobin Concent 33.5 G/DL (32.0-36.0) Red Cell Distribution Width 14.3 % (11.6-14.8) Platelet Count 15 K/UL (150-450) L Mean Platelet Volume 12.7 FL (6.5-10.1) H Neutrophils (%) (Auto) % (45.0-75.0) Lymphocytes (%) (Auto) % (20.0-45.0) Monocytes (%) (Auto) % (1.0-10.0) Eosinophils (%) (Auto) % (0.0-3.0) Basophils (%) (Auto) % (0.0-2.0) Differential Total Cells Counted 100 Neutrophils % (Manual) 88 % (45-75) H Lymphocytes % (Manual) 7 % (20-45) L Monocytes % (Manual) 3 % (1-10) Eosinophils % (Manual) 1 % (0-3) Basophils % (Manual) 1 % (0-2) Band Neutrophils 0 % (0-8) Platelet Estimate Decreased L Platelet Morphology Normal Hypochromasia 2+ Anisocytosis 1+ Sodium Level 134 MMOL/L (136-145) L Potassium Level 3.3 MMOL/L (3.5-5.1) L Chloride Level 99 MMOL/L (98-107) Carbon Dioxide Level 30 MMOL/L (21-32) Anion Gap 5 mmol/L (5-15) Blood Urea Nitrogen 19 mg/dL (7-18) H Creatinine 0.6 MG/DL (0.55-1.30) Estimat Glomerular Filtration Rate > 60 mL/min (>60) Glucose Level 189 MG/DL (74-106) H Calcium Level 7.0 MG/DL (8.5-10.1) L Phosphorus Level 1.4 MG/DL (2.5-4.9) L Magnesium Level 1.7 MG/DL (1.8-2.4) L Haptoglobin Pending Prothrombin Time 17.0 SEC (9.30-11.50) H Prothromb Time International Ratio 1.6 (0.9-1.1) H Fibrinogen 406 mg/dL (200-400) H Iron Level 10 ug/dL (50-175) L Total Iron Binding Capacity 73 ug/dL (250-450) L Percent Iron Saturation 14 % (15-50) L Unsaturated Iron Binding 63 ug/dL (112-346) L Ferritin 1413 NG/ML (8-388) H Objective HEAD AND NECK: No JVD. He is orally intubated. LUNGS: Decreased breath sounds and coarse rhonchi. CARDIOVASCULAR: Regular S1 and S2 with no gallop. ABDOMEN: Soft. EXTREMITIES: No pitting edema. Deric Garcia MD February 29, 2020 14:00
[2020-02-29] MEDS: Enoxaparin 40mg Inj SUBQ SCH (17:00)
[2020-02-29] MEDS: Dyna-Hex 2% Top Sol 2oz TOPIC SCH (21:11)
--- NOTE | 2020-02-29 21:14 | Infectious Diseases Prog Note ---
Assessment/Plan Assessment/Plan ASSESSMENT AND PLAN: 1. covid-19 virus infection/pna +, rule out bacterial pna, sepsis, shock, leukocytosis, fevers, vent, pressors, mrsa colonization bc - one bottle - diphtheroids - likely contaminat - zosyn, doxycycline, vancomycin -day # 7/ - s/p hydroxychloroquine - f/u labs and chest x-ray - condition - critical - icu care 2. Respiratory failure, on vent. 3. ICU care. 4. Pressors. 5. Low potassium or hypokalemia. 6. Diabetes. 7. Hypertension. 8. Alzheimer's. 9. CVA. 10. TIA. 11. DVT. 12. Dementia. 13. Aspiration risk. 14. No known drug allergies. 15. Social history negative. 16. Family history is noncontributory. 17. MAR was noted. 18. Case discussed with RN. 19. Poor prognosis. 20. Skin care protocol. 21. Case discussed with Dr. Nunez. Subjective Constitutional: Reports: other - + vent, + pressors ; Denies: fever HEENT: Reports: congestion Respiratory: Reports: shortness of breath Cardiovascular: Reports: other - + pressors Gastrointestinal/Abdominal: Denies: nausea, vomiting, diarrhea Genitourinary: Reports: other - + rush Neurologic: Denies: headache Psychiatric: Denies: depression Skin: Denies: rash Hematologic: Denies: bleeding Musculoskeletal: Denies: pain Allergies: Coded Allergies: No Known Allergies (Unverified , 01/19/19) Objective Vital Signs Last 24 Hour Vital Signs Date Time Temp Pulse Resp B/P (MAP) Pulse Ox O2 Delivery O2 Flow Rate FiO2 02/29/20 18:00 130/75 02/29/20 18:00 20 Mechanical Ventilator 100 02/29/20 18:00 106 29 130/75 (93) 100 02/29/20 17:35 130/79 02/29/20 17:34 130/75 02/29/20 17:30 112 33 130/79 (96) 92 02/29/20 17:00 115 36 123/68 (86) 95 02/29/20 17:00 125/72 02/29/20 17:00 20 Mechanical Ventilator 100 02/29/20 16:30 114 32 113/67 (82) 95 02/29/20 16:00 100 02/29/20 16:00 99.5 114 33 115/71 (86) 94 02/29/20 16:00 Mechanical Ventilator 02/29/20 16:00 107 02/29/20 16:00 124/71 02/29/20 16:00 20 Mechanical Ventilator 100 02/29/20 15:30 128 26 100 02/29/20 15:30 107 32 125/74 (91) 96 02/29/20 15:00 127/68 02/29/20 15:00 20 Mechanical Ventilator 100 02/29/20 15:00 105 30 127/68 (87) 97 02/29/20 14:54 99/60 02/29/20 14:30 101 30 117/68 (84) 99 02/29/20 14:00 20 Mechanical Ventilator 100 02/29/20 14:00 100 29 110/67 (81) 98 02/29/20 13:30 108 29 99/60 (73) 98 02/29/20 13:00 20 Mechanical Ventilator 100 02/29/20 13:00 131 32 91/54 (66) 97 02/29/20 12:58 125 80/53 02/29/20 12:30 126 29 88/52 (64) 96 02/29/20 12:00 Mechanical Ventilator 02/29/20 12:00 99.3 132 29 87/56 (66) 95 02/29/20 12:00 133 02/29/20 12:00 100 02/29/20 12:00 86/51 02/29/20 12:00 20 Mechanical Ventilator 100 02/29/20 11:30 134 29 96/58 (71) 92 02/29/20 11:15 20 Mechanical Ventilator 100 02/29/20 11:00 97/57 02/29/20 11:00 20 Mechanical Ventilator 100 02/29/20 11:00 133 29 108/55 (72) 90 02/29/20 10:45 134 28 100 02/29/20 10:30 128 30 97/55 (69) 93 02/29/20 10:15 20 Mechanical Ventilator 100 02/29/20 10:00 92/57 02/29/20 10:00 20 Mechanical Ventilator 100 02/29/20 10:00 127 28 89/57 (68) 93 02/29/20 09:45 89/57 5/4/20 09:45 20 Mechanical Ventilator 100 02/29/20 09:30 128 28 87/51 (63) 93 02/29/20 09:30 90/52 02/29/20 09:30 20 Mechanical Ventilator 100 02/29/20 09:15 87/51 02/29/20 09:15 20 Mechanical Ventilator 100 02/29/20 09:00 129 28 84/49 (61) 93 02/29/20 09:00 84/49 02/29/20 09:00 20 Mechanical Ventilator 100 02/29/20 08:45 80/54 02/29/20 08:45 20 Mechanical Ventilator 100 02/29/20 08:30 130 25 93/52 (66) 92 02/29/20 08:30 90/54 02/29/20 08:30 20 Mechanical Ventilator 100 02/29/20 08:13 90/52 02/29/20 08:12 93/52 02/29/20 08:12 20 Mechanical Ventilator 100 02/29/20 08:00 129 02/29/20 08:00 Mechanical Ventilator 02/29/20 08:00 20 Mechanical Ventilator 100 02/29/20 08:00 99.4 128 25 90/54 (66) 92 02/29/20 08:00 100 02/29/20 07:30 128 27 85/51 (62) 92 02/29/20 07:15 84/50 02/29/20 07:13 133 29 100 02/29/20 07:00 125 24 84/50 (61) 93 02/29/20 07:00 20 Mechanical Ventilator 100 02/29/20 06:30 78 23 02/29/20 06:30 130 26 81/50 (60) 93 02/29/20 06:30 78 23 02/29/20 06:00 134 26 86/51 (63) 93 02/29/20 06:00 24 Mechanical Ventilator 100 02/29/20 06:00 136 27 103/52 (69) 92 02/29/20 05:48 137 26 80/50 (60) 93 02/29/20 05:30 136 26 100 02/29/20 05:30 139 27 89/45 (60) 80 02/29/20 05:00 24 Mechanical Ventilator 100 02/29/20 05:00 136 27 103/52 (69) 92 02/29/20 04:30 142 34 123/58 (79) 82 02/29/20 04:00 98.8 132 30 121/70 (87) 87 02/29/20 04:00 Mechanical Ventilator 02/29/20 04:00 80 02/29/20 04:00 20 Mechanical Ventilator 100 02/29/20 04:00 112 02/29/20 03:30 125 23 131/62 (85) 90 02/29/20 03:00 123 20 132/67 (88) 91 02/29/20 03:00 20 Mechanical Ventilator 80 02/29/20 02:55 125 34 100 02/29/20 02:30 123 24 136/63 (87) 82 02/29/20 02:30 123 24 130/63 (85) 82 02/29/20 02:15 120 21 116/62 (80) 85 02/29/20 02:00 121 22 100/56 (71) 86 02/29/20 02:00 116/62 02/29/20 02:00 24 Mechanical Ventilator 80 02/29/20 01:45 116 23 129/64 (85) 86 02/29/20 01:30 118 19 116/65 (82) 88 02/29/20 01:30 97 24 60 02/29/20 01:30 118 19 116/65 (82) 88 02/29/20 01:15 117 20 90 02/29/20 01:00 119 24 137/65 (89) 88 02/29/20 01:00 Mechanical Ventilator 02/29/20 01:00 137/65 02/29/20 01:00 20 Mechanical Ventilator 02/29/20 01:00 119 24 137/65 (89) 88 02/29/20 00:45 116 23 117/69 (85) 84 02/29/20 00:30 104 23 120/79 (93) 84 02/29/20 00:30 104 23 120/79 (93) 84 02/29/20 00:15 96 15 114/63 (80) 93 02/29/20 00:00 Mechanical Ventilator 02/29/20 00:00 90 22 127/69 (88) 99 02/29/20 00:00 114/63 02/29/20 00:00 20 Mechanical Ventilator 60 02/29/20 00:00 98.5 90 22 127/69 (88) 99 02/29/20 00:00 98 02/29/20 00:00 80 02/28/20 23:30 91 22 60 02/28/20 23:00 119/68 02/28/20 23:00 22 Mechanical Ventilator 60 02/28/20 23:00 92 23 122/68 (86) 98 02/28/20 22:30 91 22 106/60 (75) 97 02/28/20 22:00 96 24 118/67 (84) 97 02/28/20 22:00 109/61 02/28/20 22:00 24 Mechanical Ventilator 60 02/28/20 21:30 97 23 121/65 (83) 97 02/28/20 21:30 91 20 60 Height (Feet): 5 Height (Inches): 5.00 Weight (Pounds): 122 General Appearance: other - on vent HEENT: normocephalic, atraumatic, no JVD, other - oral - intubated Respiratory/Chest: crackles/rales, rhonchi - bilaterally Cardiovascular: normal rate, regular rhythm, no gallop/murmur Abdomen: normal bowel sounds, soft, non tender, no organomegaly, non distended Genitourinary: other - + rush - urine slt cloudy Extremities: no cyanosis Skin: no rash Neurologic/Psychiatric: other - weak, sedated Lymphatic: no neck adenopathy Musculoskeletal: no effusion Objective Chest x-ray - 02/23/30 - Procedure: XRAY Chest 1v Indication: Respiratory failure shortness of breath Technique: XRAY Chest 1v Comparison: 02/22/2020 Findings: Heart borders are obscured. Interstitial and extensive predominantly perihilar airspace opacities are noted. There is slight decrease in opacification in the right midlung but there is worsening of disease in the left lung. Is been development of a small layering left pleural effusion. Endotracheal tube tip approximately 1.2 cm above the holly. Enteric tube tip in the distal stomach. Osseous structures are stable. There are atherosclerotic calcifications. IMPRESSION: Overall worsening of aeration with increasing airspace disease in the left lung and development of a small layering left pleural effusion. Persistent patchy perihilar opacities in the right lung. Endotracheal and enteric tubes remain in place. Tip of the ET tube approximately 1.2 cm above the holly. Consider slight retraction (1-2 cms). Chest x-ray - 02/26/20 - Procedure: XRAY Chest 1v Indication: Reason For Exam: ABN CHST Technique: One view of the chest Comparison: 02/24/2020 Findings: Endotracheal tube demonstrates slightly improved position, now roughly 3 cm above the holly. There is increased atelectasis at the right lung base. Consolidation at the right lung base appears unchanged, but there does appear to be decreased involvement of the upper lobe. There is still extensive consolidation at the left lung base, but aeration appears equivocally slightly improved, and there is less upper lobe involvement. Orogastric tube again demonstrated. 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 Complete Laboratory Tests Test 02/28/20 21:30 02/29/20 05:10 02/29/20 11:50 Vancomycin Level Trough 19.6 ug/mL (5.0-12.0) H White Blood Count 3.4 K/UL (4.8-10.8) #L Red Blood Count 3.33 M/UL (4.70-6.10) L Hemoglobin 10.0 G/DL (14.2-18.0) L Hematocrit 29.8 % (42.0-52.0) L Mean Corpuscular Volume 89 FL (80-99) Mean Corpuscular Hemoglobin 29.9 PG (27.0-31.0) Mean Corpuscular Hemoglobin Concent 33.5 G/DL (32.0-36.0) Red Cell Distribution Width 14.3 % (11.6-14.8) Platelet Count 15 K/UL (150-450) L Mean Platelet Volume 12.7 FL (6.5-10.1) H Neutrophils (%) (Auto) % (45.0-75.0) Lymphocytes (%) (Auto) % (20.0-45.0) Monocytes (%) (Auto) % (1.0-10.0) Eosinophils (%) (Auto) % (0.0-3.0) Basophils (%) (Auto) % (0.0-2.0) Differential Total Cells Counted 100 Neutrophils % (Manual) 88 % (45-75) H Lymphocytes % (Manual) 7 % (20-45) L Monocytes % (Manual) 3 % (1-10) Eosinophils % (Manual) 1 % (0-3) Basophils % (Manual) 1 % (0-2) Band Neutrophils 0 % (0-8) Platelet Estimate Decreased L Platelet Morphology Normal Hypochromasia 2+ Anisocytosis 1+ Sodium Level 134 MMOL/L (136-145) L Potassium Level 3.3 MMOL/L (3.5-5.1) L Chloride Level 99 MMOL/L (98-107) Carbon Dioxide Level 30 MMOL/L (21-32) Anion Gap 5 mmol/L (5-15) Blood Urea Nitrogen 19 mg/dL (7-18) H Creatinine 0.6 MG/DL (0.55-1.30) Estimat Glomerular Filtration Rate > 60 mL/min (>60) Glucose Level 189 MG/DL (74-106) H Calcium Level 7.0 MG/DL (8.5-10.1) L Phosphorus Level 1.4 MG/DL (2.5-4.9) L Magnesium Level 1.7 MG/DL (1.8-2.4) L Haptoglobin Pending Prothrombin Time 17.0 SEC (9.30-11.50) H Prothromb Time International Ratio 1.6 (0.9-1.1) H Fibrinogen 406 mg/dL (200-400) H Iron Level 10 ug/dL (50-175) L Total Iron Binding Capacity 73 ug/dL (250-450) L Percent Iron Saturation 14 % (15-50) L Unsaturated Iron Binding 63 ug/dL (112-346) L Ferritin 1413 NG/ML (8-388) H Current Medications Medications (Trade) Dose Ordered Sig/Cirilo Route PRN Reason Start Time Stop Time Status Last Admin Dose Admin Acetaminophen (Tylenol) 650 mg Q4H PRN ORAL Fever 02/22/20 14:15 03/23/20 14:14 02/28/20 17:52 Acetaminophen (Tylenol) 650 mg Q4H PRN ORAL Mild Pain (Pain Scale 1-3) 02/22/20 14:15 03/23/20 14:14 02/29/20 08:15 Acetaminophen (Tylenol) 650 mg Q4H PRN RECTAL Mild Pain (Pain Scale 1-3) 02/22/20 14:15 03/23/20 14:14 02/22/20 21:28 Acetaminophen (Tylenol) 650 mg Q4H PRN RECTAL FEVER 02/22/20 14:15 03/23/20 14:14 Chlorhexidine Gluconate (Maira-Hex 2%) 1 applic DAILY@2000 TOPIC 02/23/20 20:00 05/23/20 19:59 02/28/20 21:26 Dextrose (Dextrose 50%) 25 ml Q30M PRN IV Hypoglycemia 02/23/20 09:00 05/23/20 08:59 Dextrose (Dextrose 50%) 50 ml Q30M PRN IV Hypoglycemia 02/23/20 09:00 05/23/20 08:59 Diphenhydramine HCl (Benadryl) 25 mg Q6H PRN ORAL Itching/Pruritis 02/22/20 14:15 03/23/20 14:14 02/26/20 01:34 Doxycycline Monohydrate (Doxycycline Monohydrate) 100 mg EVERY 12 HOURS ORAL 02/24/20 09:00 03/02/20 08:59 02/29/20 08:13 Enoxaparin Sodium (Lovenox) 40 mg Q24H SUBQ 02/22/20 17:00 05/22/20 16:59 02/24/20 17:37 Fentanyl Citrate 2500 mcg/Sodium Chloride 250 ml @ 0 mls/hr Q24H IV 02/23/20 10:00 03/01/20 09:59 02/29/20 08:12 Insulin Aspart (NovoLOG) Q6HR SUBQ 02/28/20 18:00 05/28/20 17:59 02/28/20 18:48 Lorazepam (Ativan 2mg/ml 1ml) 1 mg Q6H PRN IV For Anxiety 02/26/20 08:30 03/04/20 08:29 02/29/20 04:46 Metoclopramide HCl (Reglan) 5 mg Q6H PRN IVP Nausea & Vomiting 02/29/20 10:30 03/30/20 10:29 Midazolam HCl 100 ml @ 0 mls/hr Q24H IV 02/26/20 15:06 05/26/20 15:05 02/26/20 15:48 Norepinephrine Bitartrate 8 mg/ Dextrose 500 ml @ 0 mls/hr Q24H IV 02/23/20 19:01 03/24/20 19:00 02/29/20 17:35 Pantoprazole (Protonix) 40 mg DAILY IVP 02/23/20 09:30 03/24/20 09:29 02/29/20 08:13 Phenylephrine HCl 50 mg/Dextrose 250 ml @ 6 mls/hr Q24H IV 02/29/20 10:45 03/30/20 10:44 02/29/20 12:58 Piperacillin Sod/ Tazobactam Sod 3.375 gm/Dextrose 110 ml @ 27.5 mls/hr Q8H IVPB 02/23/20 01:00 03/01/20 00:59 02/29/20 17:40 Vancomycin HCl (Vanco rx to dose) 1 ea DAILY PRN MISC Per rx protocol 02/22/20 14:30 03/23/20 14:29 Vancomycin HCl 1 gm/Dextrose 275 ml @ 183.708 mls/hr Q8H IVPB 02/28/20 21:00 03/04/20 20:59 02/29/20 13:42 Anselmo Estrada MD February 29, 2020 21:14
[2020-03-01] VITALS (57 sets, daily range): BP systolic 79–150; BP diastolic 42–84
[2020-03-01] MEDS: Piperacillin/Tazobactam 3.375 GM in D5W 110 ML IVPB SCH ×3 (00:44→17:06)
[2020-03-01] MEDS: Norepinephrine Bitartrate 8 MG in D5W 500ml 492 ML IV SCH ×2 (04:28→18:06)
[2020-03-01] MEDS: Vancomycin 1gm in D5W 275ml IVPB SCH ×3 (05:29→20:42)
[2020-03-01] MEDS: NovoLOG Insulin Flexpen SUBQ SCH ×4 (05:29→17:39)
[2020-03-01 06:49] LABS: HEMATOCRIT 27.5 % (42.0-52.0); HEMOGLOBIN 9.4 G/DL (14.2-18.0); MEAN CORPUSCULAR VOLUME 88 FL (80-99); PLATELET COUNT 20 K/UL (150-450); RED BLOOD COUNT 3.12 M/UL (4.70-6.10); RED CELL DISTRIBUTION WIDTH 14.5 % (11.6-14.8); WHITE BLOOD COUNT 7.4 K/UL (4.8-10.8)
--- NOTE | 2020-03-01 07:22 | Hematology/Onc Progress Note ---
Assessment/Plan Assessment/Plan # Severe thrombocytopenia - potential causes multifactorial, evaluate liver and viral etiologies to begin, in this particular case, given mosf, is due to , has had hyperbilirubinemia, has received heparin and zosyn both culprits as well --> Hep panel and HIV ordered -- neg --> US abd to evaluate for cirrhosis and hsm ordered ->when covid is negative --> Peripheral smear ordered to evaluate for blasts /schistocytes (ALSO HAVE Ordered for DIC panel)-->DIC panel reviewed, D-dimer high, inr higher, hapto pending --> abx and other meds have been reviewed --> ok for ppx if plt >50k w/ either heparin or lovenox --> Transfuse if Plt < 20k and fever, or if Plt < 10k without fever --> off heparin now, have ordered for hit-pf4 antibody test --> plt trend 15-->20k --> HOLD LOVENOX SQ # Anemia of chronic disease due to underlying chronic medical issues, multifactorial v Gi bleed --> Anemia workup has been ordered, rule out gi bleed --> No evidence of hemolysis is noted, peripheral smear has been reviewed. --> Hgb goal >7. Transfuse prn. --> Epogen or iron at this time is not particularly indicated --> Medications have been reviewed --> low threshold for gi evaluation in case has occult + --> bone marrow biopsy is not indicated given the other more likely causes --> hgb trend 9.9-->9.7 # Septic shock 2/2 due to covid 19 --> on abx as per id -->zosyn/doxy/vanc --> wbc remains elev # Acute Hypoxic Respiratory Failure --> now s/p vent --> in icu # HCAP COVID positive --> abx, plaq and supp care # Jaundiced with Hyperbilirubinemia --> per gi--> with ogt --> have ordered repeat bilis # Schizophrenia # Bipolar dx # Dvt ppx scds The timing of this note does not necessarily reflect the time of the patient was seen. Greatly appreciate consultation. Subjective Allergies: Coded Allergies: No Known Allergies (Unverified , 01/19/19) Subjective 5/4 remains on vent, og, rush, sedated in icu, on pressors, plt 15k, smear pending Objective Objective Current Medications Medications (Trade) Dose Ordered Sig/Cirilo Route PRN Reason Start Time Stop Time Status Last Admin Dose Admin Acetaminophen (Tylenol) 650 mg Q4H PRN ORAL Fever 02/22/20 14:15 03/23/20 14:14 02/28/20 17:52 Acetaminophen (Tylenol) 650 mg Q4H PRN ORAL Mild Pain (Pain Scale 1-3) 02/22/20 14:15 03/23/20 14:14 02/29/20 08:15 Acetaminophen (Tylenol) 650 mg Q4H PRN RECTAL Mild Pain (Pain Scale 1-3) 02/22/20 14:15 03/23/20 14:14 02/22/20 21:28 Acetaminophen (Tylenol) 650 mg Q4H PRN RECTAL FEVER 02/22/20 14:15 03/23/20 14:14 Chlorhexidine Gluconate (Maira-Hex 2%) 1 applic DAILY@2000 TOPIC 02/23/20 20:00 05/23/20 19:59 02/29/20 21:11 Dextrose (Dextrose 50%) 25 ml Q30M PRN IV Hypoglycemia 02/23/20 09:00 05/23/20 08:59 Dextrose (Dextrose 50%) 50 ml Q30M PRN IV Hypoglycemia 02/23/20 09:00 05/23/20 08:59 Diphenhydramine HCl (Benadryl) 25 mg Q6H PRN ORAL Itching/Pruritis 02/22/20 14:15 03/23/20 14:14 02/26/20 01:34 Doxycycline Monohydrate (Doxycycline Monohydrate) 100 mg EVERY 12 HOURS ORAL 03/01/20 09:00 03/08/20 08:59 Enoxaparin Sodium (Lovenox) 40 mg Q24H SUBQ 02/22/20 17:00 05/22/20 16:59 02/24/20 17:37 Fentanyl Citrate 2500 mcg/Sodium Chloride 250 ml @ 0 mls/hr Q24H IV 02/23/20 10:00 03/01/20 09:59 02/29/20 22:58 Insulin Aspart (NovoLOG) Q6HR SUBQ 02/28/20 18:00 05/28/20 17:59 02/28/20 18:48 Lorazepam (Ativan 2mg/ml 1ml) 1 mg Q6H PRN IV For Anxiety 02/26/20 08:30 03/04/20 08:29 02/29/20 04:46 Metoclopramide HCl (Reglan) 5 mg Q6H PRN IVP Nausea & Vomiting 02/29/20 10:30 03/30/20 10:29 Midazolam HCl 100 ml @ 0 mls/hr Q24H IV 02/26/20 15:06 05/26/20 15:05 02/26/20 15:48 Norepinephrine Bitartrate 8 mg/ Dextrose 500 ml @ 0 mls/hr Q24H IV 02/23/20 19:01 03/24/20 19:00 03/01/20 04:28 Pantoprazole (Protonix) 40 mg DAILY IVP 02/23/20 09:30 03/24/20 09:29 02/29/20 08:13 Phenylephrine HCl 50 mg/Dextrose 250 ml @ 6 mls/hr Q24H IV 02/29/20 10:45 03/30/20 10:44 02/29/20 22:44 Piperacillin Sod/ Tazobactam Sod 3.375 gm/Dextrose 110 ml @ 27.5 mls/hr Q8H IVPB 03/01/20 01:00 03/08/20 00:59 03/01/20 00:44 Vancomycin HCl (Vanco rx to dose) 1 ea DAILY PRN MISC Per rx protocol 02/22/20 14:30 03/23/20 14:29 Vancomycin HCl 1 gm/Dextrose 275 ml @ 183.708 mls/hr Q8H IVPB 02/28/20 21:00 03/04/20 20:59 03/01/20 05:29 Last 24 Hour Vital Signs Date Time Temp Pulse Resp B/P (MAP) Pulse Ox O2 Delivery O2 Flow Rate FiO2 03/01/20 06:30 109 23 03/01/20 06:30 120 37 109/57 (74) 96 03/01/20 06:15 121 34 98/54 (69) 96 03/01/20 06:00 122 36 92/55 (67) 96 03/01/20 06:00 102/67 03/01/20 06:00 24 Mechanical Ventilator 100 03/01/20 05:30 124 32 106/57 (73) 99 03/01/20 05:00 102/57 03/01/20 05:00 22 Mechanical Ventilator 100 03/01/20 05:00 99.5 129 37 102/57 (72) 98 03/01/20 04:40 110 32 100 03/01/20 04:30 131 39 110/59 (76) 100 03/01/20 04:28 146/73 03/01/20 04:15 133 39 109/61 (77) 100 03/01/20 04:00 118 36 144/79 (100) 100 03/01/20 04:00 144/79 03/01/20 04:00 16 Mechanical Ventilator 100 03/01/20 04:00 Mechanical Ventilator 03/01/20 04:00 125 03/01/20 04:00 100 03/01/20 03:45 117 36 145/72 (96) 100 03/01/20 03:30 117 36 140/71 (94) 100 03/01/20 03:15 116 36 140/74 (96) 100 03/01/20 03:14 106 32 100 03/01/20 03:00 113 34 139/75 (96) 100 03/01/20 03:00 113 34 139/75 (96) 100 03/01/20 03:00 139/75 03/01/20 03:00 26 Mechanical Ventilator 03/01/20 02:45 117 36 147/76 (99) 100 03/01/20 02:30 115 36 146/73 (97) 97 03/01/20 02:30 115 36 146/73 (97) 97 03/01/20 02:15 111 38 150/84 (106) 99 03/01/20 02:00 104 34 142/77 (98) 100 03/01/20 02:00 145/82 03/01/20 02:00 20 Mechanical Ventilator 100 03/01/20 02:00 104 34 142/77 (98) 100 03/01/20 01:45 104 36 145/82 (103) 100 03/01/20 01:30 102 34 143/78 (99) 100 03/01/20 01:30 102 34 143/78 (99) 100 03/01/20 01:15 101 33 141/78 (99) 100 03/01/20 01:12 105 36 100 03/01/20 01:00 100 35 140/74 (96) 100 03/01/20 01:00 141/79 03/01/20 01:00 20 Mechanical Ventilator 100 03/01/20 01:00 100 35 140/74 (96) 100 03/01/20 00:45 115 33 105/55 (72) 98 03/01/20 00:30 91 29 123/66 (85) 100 03/01/20 00:30 91 29 123/66 (85) 100 03/01/20 00:15 93 31 123/68 (86) 100 03/01/20 00:00 93 31 127/72 (90) 100 03/01/20 00:00 98.8 93 31 127/72 (90) 100 03/01/20 00:00 101 03/01/20 00:00 123/68 03/01/20 00:00 22 Mechanical Ventilator 100 03/01/20 00:00 Mechanical Ventilator 03/01/20 00:00 100 02/29/20 23:30 96 32 131/80 (97) 100 02/29/20 23:00 105/59 02/29/20 23:00 117 38 105/59 (74) 100 02/29/20 22:58 16 100 02/29/20 22:52 118 39 100 02/29/20 22:47 105/60 02/29/20 22:44 118 105/60 02/29/20 22:30 116 33 106/60 (75) 78 02/29/20 22:00 104/62 02/29/20 22:00 24 Mechanical Ventilator 100 02/29/20 22:00 93 31 123/70 (87) 88 02/29/20 21:30 103 34 133/77 (95) 100 02/29/20 21:12 105 31 100 02/29/20 21:00 123/61 02/29/20 21:00 26 Mechanical Ventilator 100 02/29/20 21:00 105 32 127/67 (87) 83 02/29/20 20:30 109 24 131/73 (92) 91 02/29/20 20:00 102 02/29/20 20:00 130/76 02/29/20 20:00 24 Mechanical Ventilator 100 02/29/20 20:00 Mechanical Ventilator 02/29/20 20:00 99.0 110 32 135/73 (93) 81 02/29/20 20:00 100 02/29/20 19:30 110 36 140/73 (95) 81 02/29/20 19:15 106 31 100 02/29/20 19:00 109 32 133/75 (94) 97 02/29/20 19:00 139/76 02/29/20 19:00 22 Mechanical Ventilator 100 02/29/20 18:00 130/75 02/29/20 18:00 20 Mechanical Ventilator 100 02/29/20 18:00 106 29 130/75 (93) 100 02/29/20 17:35 130/79 02/29/20 17:34 130/75 02/29/20 17:30 112 33 130/79 (96) 92 02/29/20 17:00 115 36 123/68 (86) 95 02/29/20 17:00 125/72 02/29/20 17:00 20 Mechanical Ventilator 100 02/29/20 16:30 114 32 113/67 (82) 95 02/29/20 16:00 100 02/29/20 16:00 99.5 114 33 115/71 (86) 94 02/29/20 16:00 Mechanical Ventilator 02/29/20 16:00 107 02/29/20 16:00 124/71 02/29/20 16:00 20 Mechanical Ventilator 100 02/29/20 15:30 128 26 100 02/29/20 15:30 107 32 125/74 (91) 96 02/29/20 15:00 127/68 02/29/20 15:00 20 Mechanical Ventilator 100 02/29/20 15:00 105 30 127/68 (87) 97 02/29/20 14:54 99/60 02/29/20 14:30 101 30 117/68 (84) 99 02/29/20 14:00 20 Mechanical Ventilator 100 02/29/20 14:00 100 29 110/67 (81) 98 02/29/20 13:30 108 29 99/60 (73) 98 02/29/20 13:00 20 Mechanical Ventilator 100 02/29/20 13:00 131 32 91/54 (66) 97 02/29/20 12:58 125 80/53 02/29/20 12:30 126 29 88/52 (64) 96 02/29/20 12:00 Mechanical Ventilator 02/29/20 12:00 99.3 132 29 87/56 (66) 95 02/29/20 12:00 133 02/29/20 12:00 100 02/29/20 12:00 86/51 02/29/20 12:00 20 Mechanical Ventilator 100 02/29/20 11:30 134 29 96/58 (71) 92 02/29/20 11:15 20 Mechanical Ventilator 100 02/29/20 11:00 97/57 02/29/20 11:00 20 Mechanical Ventilator 100 02/29/20 11:00 133 29 108/55 (72) 90 02/29/20 10:45 134 28 100 02/29/20 10:30 128 30 97/55 (69) 93 02/29/20 10:15 20 Mechanical Ventilator 100 02/29/20 10:00 92/57 02/29/20 10:00 20 Mechanical Ventilator 100 02/29/20 10:00 127 28 89/57 (68) 93 02/29/20 09:45 89/57 02/29/20 09:45 20 Mechanical Ventilator 100 02/29/20 09:30 128 28 87/51 (63) 93 02/29/20 09:30 90/52 02/29/20 09:30 20 Mechanical Ventilator 100 02/29/20 09:15 87/51 02/29/20 09:15 20 Mechanical Ventilator 100 02/29/20 09:00 129 28 84/49 (61) 93 02/29/20 09:00 84/49 02/29/20 09:00 20 Mechanical Ventilator 100 02/29/20 08:45 80/54 02/29/20 08:45 20 Mechanical Ventilator 100 02/29/20 08:30 130 25 93/52 (66) 92 02/29/20 08:30 90/54 02/29/20 08:30 20 Mechanical Ventilator 100 02/29/20 08:13 90/52 02/29/20 08:12 93/52 02/29/20 08:12 20 Mechanical Ventilator 100 02/29/20 08:00 129 02/29/20 08:00 Mechanical Ventilator 02/29/20 08:00 20 Mechanical Ventilator 100 02/29/20 08:00 99.4 128 25 90/54 (66) 92 02/29/20 08:00 100 02/29/20 07:30 128 27 85/51 (62) 92 02/29/20 07:15 84/50 02/29/20 07:13 133 29 100 02/29/20 07:00 125 24 84/50 (61) 93 02/29/20 07:00 20 Mechanical Ventilator 100 02/29/20 06:30 78 23 02/29/20 06:30 130 26 81/50 (60) 93 02/29/20 06:30 78 23 02/29/20 06:00 134 26 86/51 (63) 93 02/29/20 06:00 24 Mechanical Ventilator 100 02/29/20 06:00 136 27 103/52 (69) 92 02/29/20 05:48 137 26 80/50 (60) 93 02/29/20 05:30 136 26 100 02/29/20 05:30 139 27 89/45 (60) 80 02/29/20 05:00 24 Mechanical Ventilator 100 02/29/20 05:00 136 27 103/52 (69) 92 02/29/20 04:30 142 34 123/58 (79) 82 02/29/20 04:00 98.8 132 30 121/70 (87) 87 02/29/20 04:00 Mechanical Ventilator 02/29/20 04:00 80 02/29/20 04:00 20 Mechanical Ventilator 100 02/29/20 04:00 112 02/29/20 03:30 125 23 131/62 (85) 90 02/29/20 03:00 123 20 132/67 (88) 91 02/29/20 03:00 20 Mechanical Ventilator 80 02/29/20 02:55 125 34 100 02/29/20 02:30 123 24 136/63 (87) 82 02/29/20 02:30 123 24 130/63 (85) 82 02/29/20 02:15 120 21 116/62 (80) 85 02/29/20 02:00 121 22 100/56 (71) 86 02/29/20 02:00 116/62 02/29/20 02:00 24 Mechanical Ventilator 80 02/29/20 01:45 116 23 129/64 (85) 86 02/29/20 01:30 118 19 116/65 (82) 88 02/29/20 01:30 97 24 60 5/4/20 01:30 118 19 116/65 (82) 88 02/29/20 01:15 117 20 90 02/29/20 01:00 119 24 137/65 (89) 88 02/29/20 01:00 Mechanical Ventilator 02/29/20 01:00 137/65 02/29/20 01:00 20 Mechanical Ventilator 02/29/20 01:00 119 24 137/65 (89) 88 02/29/20 00:45 116 23 117/69 (85) 84 02/29/20 00:30 104 23 120/79 (93) 84 02/29/20 00:30 104 23 120/79 (93) 84 02/29/20 00:15 96 15 114/63 (80) 93 02/29/20 00:00 Mechanical Ventilator 02/29/20 00:00 90 22 127/69 (88) 99 02/29/20 00:00 114/63 02/29/20 00:00 20 Mechanical Ventilator 60 02/29/20 00:00 98.5 90 22 127/69 (88) 99 02/29/20 00:00 98 02/29/20 00:00 80 02/28/20 23:30 91 22 60 02/28/20 23:00 119/68 02/28/20 23:00 22 Mechanical Ventilator 60 02/28/20 23:00 92 23 122/68 (86) 98 02/28/20 22:30 91 22 106/60 (75) 97 02/28/20 22:00 96 24 118/67 (84) 97 02/28/20 22:00 109/61 02/28/20 22:00 24 Mechanical Ventilator 60 02/28/20 21:30 97 23 121/65 (83) 97 02/28/20 21:30 91 20 60 02/28/20 21:00 94 24 115/60 (78) 96 02/28/20 21:00 114/64 02/28/20 21:00 22 Mechanical Ventilator 60 02/28/20 20:30 91 23 99/55 (70) 97 02/28/20 20:00 98.5 93 22 99/55 (70) 98 02/28/20 20:00 Mechanical Ventilator 02/28/20 20:00 100 02/28/20 20:00 100/54 02/28/20 20:00 22 Mechanical Ventilator 80 02/28/20 20:00 80 02/28/20 19:53 120/70 02/28/20 19:53 20 Mechanical Ventilator 60 02/28/20 19:30 90 23 60 02/28/20 19:00 94 24 103/56 (72) 98 02/28/20 19:00 120/70 02/28/20 19:00 20 Mechanical Ventilator 60 02/28/20 18:22 99.8 02/28/20 18:00 103 24 117/64 (81) 95 02/28/20 18:00 118/68 02/28/20 18:00 20 Mechanical Ventilator 60 02/28/20 17:30 102 24 118/64 (82) 94 02/28/20 17:03 94 21 60 02/28/20 17:00 113/66 02/28/20 17:00 20 Mechanical Ventilator 60 02/28/20 17:00 100.5 96 23 113/66 (82) 95 02/28/20 16:30 93 18 102/57 (72) 100 02/28/20 16:00 98 02/28/20 16:00 101/56 02/28/20 16:00 20 Mechanical Ventilator 60 02/28/20 16:00 Mechanical Ventilator 02/28/20 16:00 80 02/28/20 16:00 98 23 101/56 (71) 99 02/28/20 15:30 100 23 102/54 (70) 99 02/28/20 15:00 104/62 02/28/20 15:00 20 Mechanical Ventilator 60 02/28/20 15:00 103 22 104/62 (76) 98 02/28/20 14:55 106 22 80 02/28/20 14:30 104 22 102/55 (71) 98 02/28/20 14:00 105 24 102/55 (71) 95 02/28/20 14:00 102/55 02/28/20 14:00 20 Mechanical Ventilator 60 02/28/20 13:30 107 24 107/55 (72) 95 02/28/20 13:18 106 24 80 02/28/20 13:00 93/56 02/28/20 13:00 25 Mechanical Ventilator 60 02/28/20 13:00 108 24 93/56 (68) 98 02/28/20 12:55 116/63 02/28/20 12:30 113 27 111/58 (75) 97 02/28/20 12:00 113/57 02/28/20 12:00 20 Mechanical Ventilator 60 02/28/20 12:00 80 02/28/20 12:00 Mechanical Ventilator 02/28/20 12:00 108 02/28/20 12:00 112 25 113/57 (75) 98 02/28/20 11:30 111 25 112/62 (79) 99 02/28/20 11:12 107 25 80 02/28/20 11:00 112/57 02/28/20 11:00 20 Mechanical Ventilator 60 02/28/20 11:00 109 25 113/57 (75) 98 02/28/20 10:30 104 23 104/58 (73) 98 02/28/20 10:00 100 24 108/59 (75) 96 02/28/20 10:00 107/57 02/28/20 10:00 20 Mechanical Ventilator 60 02/28/20 09:30 102 23 108/59 (75) 97 02/28/20 09:19 103 23 100 02/28/20 09:00 101 24 107/58 (74) 100 02/28/20 09:00 111/60 02/28/20 09:00 20 Mechanical Ventilator 80 02/28/20 09:00 80 02/28/20 08:30 101 22 110/65 (80) 100 02/28/20 08:00 100 02/28/20 08:00 99.2 120 27 83/49 (60) 83 02/28/20 08:00 Mechanical Ventilator 02/28/20 08:00 107 02/28/20 08:00 140/71 02/28/20 08:00 20 Mechanical Ventilator 80 02/28/20 07:30 103 19 106/61 (76) 88 Intake and Output 02/29/20 03/01/20 19:00 07:00 Intake Total 2630.280 ml 1954.423 ml Output Total 730 ml 920 ml Balance 1900.280 ml 1034.423 ml Free Water 110 ml 100 ml IV Total 2350.280 ml 1734.423 ml Tube Feeding 170 ml 120 ml Output Urine Total 730 ml 920 ml Labs Test 02/27/20 07:55 02/27/20 14:45 02/28/20 05:00 5/3/20 16:00 Lactic Acid Level 2.00 mmol/L (0.4-2.0) White Blood Count 7.7 K/UL (4.8-10.8) 7.5 K/UL (4.8-10.8) Red Blood Count 3.13 M/UL (4.70-6.10) 3.33 M/UL (4.70-6.10) Hemoglobin 9.5 G/DL (14.2-18.0) 9.9 G/DL (14.2-18.0) Hematocrit 27.6 % (42.0-52.0) 29.5 % (42.0-52.0) Mean Corpuscular Volume 88 FL (80-99) 89 FL (80-99) Mean Corpuscular Hemoglobin 30.4 PG (27.0-31.0) 29.7 PG (27.0-31.0) Mean Corpuscular Hemoglobin Concent 34.4 G/DL (32.0-36.0) 33.5 G/DL (32.0-36.0) Red Cell Distribution Width 13.5 % (11.6-14.8) 14.5 % (11.6-14.8) Platelet Count 35 K/UL (150-450) 23 K/UL (150-450) Mean Platelet Volume 10.0 FL (6.5-10.1) 9.0 FL (6.5-10.1) Neutrophils (%) (Auto) % (45.0-75.0) % (45.0-75.0) Lymphocytes (%) (Auto) % (20.0-45.0) % (20.0-45.0) Monocytes (%) (Auto) % (1.0-10.0) % (1.0-10.0) Eosinophils (%) (Auto) % (0.0-3.0) % (0.0-3.0) Basophils (%) (Auto) % (0.0-2.0) % (0.0-2.0) Differential Total Cells Counted 100 100 Neutrophils % (Manual) 89 % (45-75) 86 % (45-75) Lymphocytes % (Manual) 6 % (20-45) 10 % (20-45) Monocytes % (Manual) 4 % (1-10) 4 % (1-10) Eosinophils % (Manual) 1 % (0-3) 0 % (0-3) Basophils % (Manual) 0 % (0-2) 0 % (0-2) Band Neutrophils 0 % (0-8) 0 % (0-8) Platelet Estimate Decreased Decreased Platelet Morphology Normal Normal Hypochromasia 1+ Anisocytosis 1+ 1+ Vancomycin Level Trough 22.1 ug/mL (5.0-12.0) 29.2 ug/mL (5.0-12.0) Macrocytosis 1+ Sodium Level 141 MMOL/L (136-145) Potassium Level 3.4 MMOL/L (3.5-5.1) Chloride Level 106 MMOL/L (98-107) Carbon Dioxide Level 30 MMOL/L (21-32) Anion Gap 5 mmol/L (5-15) Blood Urea Nitrogen 19 mg/dL (7-18) Creatinine 0.6 MG/DL (0.55-1.30) Estimat Glomerular Filtration Rate > 60 mL/min (>60) Glucose Level 243 MG/DL (74-106) Calcium Level 6.8 MG/DL (8.5-10.1) Total Bilirubin 12.7 MG/DL (0.2-1.0) Direct Bilirubin 11.1 MG/DL (0.0-0.3) Aspartate Amino Transf (AST/SGOT) 35 U/L (15-37) Alanine Aminotransferase (ALT/SGPT) 30 U/L (12-78) Alkaline Phosphatase 85 U/L (46-116) Total Protein 4.7 G/DL (6.4-8.2) Albumin 1.1 G/DL (3.4-5.0) Globulin 3.6 g/dL Albumin/Globulin Ratio 0.3 (1.0-2.7) HIV (1&2) Antibody Rapid Negative (NEGATIVE) Heparin-PF4 Antibody Screen 0.08 OD (<0.40) Hepatitis A IgM Antibody Negative (Negative) Hepatitis B Surface Antigen Negative (Negative) Hepatitis B Core IgM Antibody Negative (Negative) Hepatitis C Antibody <0.1 s/co ratio Test 02/28/20 21:30 02/29/20 05:10 02/29/20 11:50 03/01/20 05:55 Vancomycin Level Trough 19.6 ug/mL (5.0-12.0) White Blood Count 3.4 K/UL (4.8-10.8) 7.4 K/UL (4.8-10.8) Red Blood Count 3.33 M/UL (4.70-6.10) 3.12 M/UL (4.70-6.10) Hemoglobin 10.0 G/DL (14.2-18.0) 9.4 G/DL (14.2-18.0) Hematocrit 29.8 % (42.0-52.0) 27.5 % (42.0-52.0) Mean Corpuscular Volume 89 FL (80-99) 88 FL (80-99) Mean Corpuscular Hemoglobin 29.9 PG (27.0-31.0) 30.3 PG (27.0-31.0) Mean Corpuscular Hemoglobin Concent 33.5 G/DL (32.0-36.0) 34.4 G/DL (32.0-36.0) Red Cell Distribution Width 14.3 % (11.6-14.8) 14.5 % (11.6-14.8) Platelet Count 15 K/UL (150-450) 20 K/UL (150-450) Mean Platelet Volume 12.7 FL (6.5-10.1) 11.0 FL (6.5-10.1) Neutrophils (%) (Auto) % (45.0-75.0) % (45.0-75.0) Lymphocytes (%) (Auto) % (20.0-45.0) % (20.0-45.0) Monocytes (%) (Auto) % (1.0-10.0) % (1.0-10.0) Eosinophils (%) (Auto) % (0.0-3.0) % (0.0-3.0) Basophils (%) (Auto) % (0.0-2.0) % (0.0-2.0) Differential Total Cells Counted 100 Neutrophils % (Manual) 88 % (45-75) Lymphocytes % (Manual) 7 % (20-45) Monocytes % (Manual) 3 % (1-10) Eosinophils % (Manual) 1 % (0-3) Basophils % (Manual) 1 % (0-2) Band Neutrophils 0 % (0-8) Platelet Estimate Decreased Platelet Morphology Normal Hypochromasia 2+ Anisocytosis 1+ Sodium Level 134 MMOL/L (136-145) Potassium Level 3.3 MMOL/L (3.5-5.1) Chloride Level 99 MMOL/L (98-107) Carbon Dioxide Level 30 MMOL/L (21-32) Anion Gap 5 mmol/L (5-15) Blood Urea Nitrogen 19 mg/dL (7-18) Creatinine 0.6 MG/DL (0.55-1.30) Estimat Glomerular Filtration Rate > 60 mL/min (>60) Glucose Level 189 MG/DL (74-106) Calcium Level 7.0 MG/DL (8.5-10.1) Phosphorus Level 1.4 MG/DL (2.5-4.9) Magnesium Level 1.7 MG/DL (1.8-2.4) Prothrombin Time 17.0 SEC (9.30-11.50) Prothromb Time International Ratio 1.6 (0.9-1.1) Fibrinogen 406 mg/dL (200-400) Iron Level 10 ug/dL (50-175) Total Iron Binding Capacity 73 ug/dL (250-450) Percent Iron Saturation 14 % (15-50) Unsaturated Iron Binding 63 ug/dL (112-346) Ferritin 1413 NG/ML (8-388) Height (Feet): 5 Height (Inches): 5.00 Weight (Pounds): 123 Objective Physical Exam: Vitals: reviewed General: NAD HEENT: nc, at ++Ogt Neck: supple Chest: in the icu, remains intubated++ Cardiovascular: RRR, no s3, s4 Abdomen: soft, nontender, nd Extremities: no cce, normal range of motion Neuro: alert to self : Montez Maradiaga MD March 01, 2020 07:22
[2020-03-01 07:57] LABS: ALANINE AMINOTRANSFERASE 33 U/L (12-78); ALBUMIN 1.1 G/DL (3.4-5.0); ALBUMIN/GLOBULIN RATIO 0.3 (1.0-2.7); ALKALINE PHOSPHATASE 84 U/L (46-116); ANION GAP 7 mmol/L (5-15); ASPARTATE AMINO TRANSFERASE 57 U/L (15-37); BILIRUBIN,TOTAL 11.3 MG/DL (0.2-1.0); BLOOD UREA NITROGEN 25 mg/dL (7-18); CALCIUM 6.6 MG/DL (8.5-10.1); CARBON DIOXIDE 27 MMOL/L (21-32); CHLORIDE 97 MMOL/L (98-107); CREATININE 0.9 MG/DL (0.55-1.30); POTASSIUM 4.5 MMOL/L (3.5-5.1); SODIUM 131 MMOL/L (136-145)
[2020-03-01 08:03] LABS: BILIRUBIN,DIRECT 10.4 MG/DL (0.0-0.3)
[2020-03-01] MEDS: Pantoprazole Inj IVP SCH (08:17)
[2020-03-01] MEDS: Doxycycline Monohydrate 100mg ORAL SCH ×2 (08:17→20:42)
--- NOTE | 2020-03-01 09:40 | Diagnostic Imaging Report ---
Indication: Shortness of Technique: One view of the chest Comparison: 02/25/2019 Findings: Is a tiny sliver of a left apical pneumothorax, apex of the lung approximately 3 mm from the chest wall. There is a slightly larger but still small right apical pneumothorax, with the apex of the lung approximately 14 mm from the edge of the chest wall. There is extensive subcutaneous emphysema, particularly in the left anterior chest wall, but also seen in the bilateral supraclavicular fossae. The inferior right heart border is very well-defined. Uncertain as whether this represents a component of pneumomediastinum or a small medial pneumothorax. Stable tube and line positions, satisfactory. Bilateral infiltrates appear slightly improved as compared to the previous study. Impression: Since 02/26/2020, interim development of small bilateral pneumothoraces, right greater than left, and extensive subcutaneous emphysema. There may also be minimal pneumomediastinum. Bilateral infiltrates have improved somewhat in the interim.
[2020-03-01] MEDS ORDERED: Calcium Chloride 10% 10ml carpuject IVP SCH (10:00)
--- NOTE | 2020-03-01 11:27 | Pulmonology Progress Note ---
Assessment/Plan Assessment/Plan IMPRESSION: 1. Respiratory failure. 2. Bilateral pneumonia. + COVID 19 3. Pulmonary edema. 4. Diabetes mellitus. 5. Left PTX with subcut emphysema DISCUSSION: Positive COVID 19 pcr The patient is critically ill at this point in time. Poor prognosis Increasing pressor requirements Noted Cardiology consultation. Continue broad-spectrum antibiotics. Continue respiratory support; will adjust vent settings I will follow carefully. Has PTX Discussed with surgery Needs Chest tube Will transfuse 2 units FFP 2 physician consent required as he has no family Andrea Bland M.D. Subjective ROS Limited/Unobtainable: No Interval Events: Remains intubtaed; was intubated on 02/22/20 Constitutional: Reports: other - + vent, + pressors ; Denies: fever HEENT: Repors: no symptoms Respiratory: Reports: no symptoms Cardiovascular: Reports: no symptoms Gastrointestinal/Abdominal: Denies: nausea, vomiting, diarrhea Genitourinary: Reports: no symptoms Psychiatric: Denies: depression Skin: Denies: rash Endocrine: Reports: no symptoms Musculoskeletal: Denies: pain Allergies: Coded Allergies: No Known Allergies (Unverified , 01/19/19) All Systems: reviewed and negative except above Subjective seen and evaluated Discussed with RN Objective Last 24 Hour Vital Signs Date Time Temp Pulse Resp B/P (MAP) Pulse Ox O2 Delivery O2 Flow Rate FiO2 03/01/20 09:00 115 35 97/52 (67) 94 03/01/20 08:30 115 33 103/63 (76) 94 03/01/20 08:00 99.4 115 34 103/61 (75) 97 03/01/20 07:30 118 40 102/56 (71) 95 03/01/20 07:28 116 34 100 03/01/20 07:00 117 35 102/61 (75) 95 03/01/20 06:30 109 23 03/01/20 06:30 120 37 109/57 (74) 96 03/01/20 06:15 121 34 98/54 (69) 96 03/01/20 06:00 122 36 92/55 (67) 96 03/01/20 06:00 102/67 5/5/20 06:00 24 Mechanical Ventilator 100 03/01/20 05:30 124 32 106/57 (73) 99 03/01/20 05:00 102/57 03/01/20 05:00 22 Mechanical Ventilator 100 03/01/20 05:00 99.5 129 37 102/57 (72) 98 03/01/20 04:40 110 32 100 03/01/20 04:30 131 39 110/59 (76) 100 03/01/20 04:28 146/73 03/01/20 04:15 133 39 109/61 (77) 100 03/01/20 04:00 118 36 144/79 (100) 100 03/01/20 04:00 144/79 03/01/20 04:00 16 Mechanical Ventilator 100 03/01/20 04:00 Mechanical Ventilator 03/01/20 04:00 125 03/01/20 04:00 100 03/01/20 03:45 117 36 145/72 (96) 100 03/01/20 03:30 117 36 140/71 (94) 100 03/01/20 03:15 116 36 140/74 (96) 100 03/01/20 03:14 106 32 100 03/01/20 03:00 113 34 139/75 (96) 100 03/01/20 03:00 113 34 139/75 (96) 100 03/01/20 03:00 139/75 03/01/20 03:00 26 Mechanical Ventilator 03/01/20 02:45 117 36 147/76 (99) 100 03/01/20 02:30 115 36 146/73 (97) 97 03/01/20 02:30 115 36 146/73 (97) 97 03/01/20 02:15 111 38 150/84 (106) 99 03/01/20 02:00 104 34 142/77 (98) 100 03/01/20 02:00 145/82 03/01/20 02:00 20 Mechanical Ventilator 100 03/01/20 02:00 104 34 142/77 (98) 100 03/01/20 01:45 104 36 145/82 (103) 100 03/01/20 01:30 102 34 143/78 (99) 100 03/01/20 01:30 102 34 143/78 (99) 100 03/01/20 01:15 101 33 141/78 (99) 100 03/01/20 01:12 105 36 100 03/01/20 01:00 100 35 140/74 (96) 100 03/01/20 01:00 141/79 03/01/20 01:00 20 Mechanical Ventilator 100 03/01/20 01:00 100 35 140/74 (96) 100 03/01/20 00:45 115 33 105/55 (72) 98 03/01/20 00:30 91 29 123/66 (85) 100 03/01/20 00:30 91 29 123/66 (85) 100 03/01/20 00:15 93 31 123/68 (86) 100 03/01/20 00:00 93 31 127/72 (90) 100 03/01/20 00:00 98.8 93 31 127/72 (90) 100 03/01/20 00:00 101 03/01/20 00:00 123/68 03/01/20 00:00 22 Mechanical Ventilator 100 03/01/20 00:00 Mechanical Ventilator 03/01/20 00:00 100 02/29/20 23:30 96 32 131/80 (97) 100 02/29/20 23:00 105/59 02/29/20 23:00 117 38 105/59 (74) 100 02/29/20 22:58 16 100 02/29/20 22:52 118 39 100 02/29/20 22:47 105/60 02/29/20 22:44 118 105/60 02/29/20 22:30 116 33 106/60 (75) 78 02/29/20 22:00 104/62 02/29/20 22:00 24 Mechanical Ventilator 100 02/29/20 22:00 93 31 123/70 (87) 88 02/29/20 21:30 103 34 133/77 (95) 100 02/29/20 21:12 105 31 100 02/29/20 21:00 123/61 02/29/20 21:00 26 Mechanical Ventilator 100 02/29/20 21:00 105 32 127/67 (87) 83 02/29/20 20:30 109 24 131/73 (92) 91 02/29/20 20:00 102 02/29/20 20:00 130/76 02/29/20 20:00 24 Mechanical Ventilator 100 02/29/20 20:00 Mechanical Ventilator 02/29/20 20:00 99.0 110 32 135/73 (93) 81 02/29/20 20:00 100 02/29/20 19:30 110 36 140/73 (95) 81 02/29/20 19:15 106 31 100 02/29/20 19:00 109 32 133/75 (94) 97 02/29/20 19:00 139/76 02/29/20 19:00 22 Mechanical Ventilator 100 02/29/20 18:00 130/75 02/29/20 18:00 20 Mechanical Ventilator 100 02/29/20 18:00 106 29 130/75 (93) 100 02/29/20 17:35 130/79 02/29/20 17:34 130/75 02/29/20 17:30 112 33 130/79 (96) 92 02/29/20 17:00 115 36 123/68 (86) 95 02/29/20 17:00 125/72 02/29/20 17:00 20 Mechanical Ventilator 100 02/29/20 16:30 114 32 113/67 (82) 95 02/29/20 16:00 100 02/29/20 16:00 99.5 114 33 115/71 (86) 94 02/29/20 16:00 Mechanical Ventilator 02/29/20 16:00 107 02/29/20 16:00 124/71 02/29/20 16:00 20 Mechanical Ventilator 100 02/29/20 15:30 128 26 100 02/29/20 15:30 107 32 125/74 (91) 96 02/29/20 15:00 127/68 02/29/20 15:00 20 Mechanical Ventilator 100 02/29/20 15:00 105 30 127/68 (87) 97 02/29/20 14:54 99/60 02/29/20 14:30 101 30 117/68 (84) 99 02/29/20 14:00 20 Mechanical Ventilator 100 02/29/20 14:00 100 29 110/67 (81) 98 02/29/20 13:30 108 29 99/60 (73) 98 02/29/20 13:00 20 Mechanical Ventilator 100 02/29/20 13:00 131 32 91/54 (66) 97 02/29/20 12:58 125 80/53 02/29/20 12:30 126 29 88/52 (64) 96 02/29/20 12:00 Mechanical Ventilator 02/29/20 12:00 99.3 132 29 87/56 (66) 95 02/29/20 12:00 133 02/29/20 12:00 100 02/29/20 12:00 86/51 02/29/20 12:00 20 Mechanical Ventilator 100 02/29/20 11:30 134 29 96/58 (71) 92 Intake and Output 02/29/20 03/01/20 19:00 07:00 Intake Total 2630.280 ml 1954.423 ml Output Total 730 ml 920 ml Balance 1900.280 ml 1034.423 ml Free Water 110 ml 100 ml IV Total 2350.280 ml 1734.423 ml Tube Feeding 170 ml 120 ml Output Urine Total 730 ml 920 ml General Appearance: other - on vent HEENT: normocephalic, atraumatic, no JVD, other - oral - intubated Respiratory/Chest: chest wall non-tender, decreased breath sounds, other - hAS SUB CUT EMPHYSEMA LEWFT SIDE Cardiovascular: normal peripheral pulses Abdomen: normal bowel sounds, soft, non tender, no organomegaly, non distended Genitourinary: other - + rush - urine slt cloudy Extremities: no cyanosis Skin: no rash Neurologic/Psychiatric: other - weak, sedated Lymphatic: no neck adenopathy Musculoskeletal: no effusion Laboratory Tests 02/29/20 11:50: Haptoglobin [Pending], Prothrombin Time 17.0H, Prothromb Time International Ratio 1.6H, Fibrinogen 406H, Iron Level 10L, Total Iron Binding Capacity 73L, Percent Iron Saturation 14L, Unsaturated Iron Binding 63L, Ferritin 1413H 03/01/20 05:55: White Blood Count 7.4#, Red Blood Count 3.12L, Hemoglobin 9.4L, Hematocrit 27.5L , Mean Corpuscular Volume 88, Mean Corpuscular Hemoglobin 30.3, Mean Corpuscular Hemoglobin Concent 34.4, Red Cell Distribution Width 14.5, Platelet Count 20L, Mean Platelet Volume 11.0H, Neutrophils (%) (Auto) , Lymphocytes (%) (Auto) , Monocytes (%) (Auto) , Eosinophils (%) (Auto) , Basophils (%) (Auto) , Differential Total Cells Counted 100, Neutrophils % (Manual) 89H, Lymphocytes % (Manual) 5L, Monocytes % (Manual) 4, Eosinophils % (Manual) 1, Basophils % ( Manual) 0, Metamyelocytes % 1H, Band Neutrophils 0, Platelet Estimate DecreasedL , Platelet Morphology Normal, Hypochromasia 2+, Anisocytosis 1+, Spherocytes 1+ , Sodium Level 131L, Potassium Level 4.5, Chloride Level 97L, Carbon Dioxide Level 27, Anion Gap 7, Blood Urea Nitrogen 25H, Creatinine 0.9, Estimat Glomerular Filtration Rate > 60, Glucose Level 132H, Calcium Level 6.6L, Total Bilirubin 11.3H, Direct Bilirubin 10.4H, Aspartate Amino Transf (AST/SGOT) 57H, Alanine Aminotransferase (ALT/SGPT) 33, Alkaline Phosphatase 84, Total Protein 4.3L, Albumin 1.1L, Globulin 3.2, Albumin/Globulin Ratio 0.3L Current Medications Medications (Trade) Dose Ordered Sig/Cirilo Route PRN Reason Start Time Stop Time Status Last Admin Dose Admin Acetaminophen (Tylenol) 650 mg Q4H PRN ORAL Fever 02/22/20 14:15 03/23/20 14:14 02/28/20 17:52 Acetaminophen (Tylenol) 650 mg Q4H PRN ORAL Mild Pain (Pain Scale 1-3) 02/22/20 14:15 03/23/20 14:14 02/29/20 08:15 Acetaminophen (Tylenol) 650 mg Q4H PRN RECTAL Mild Pain (Pain Scale 1-3) 02/22/20 14:15 03/23/20 14:14 02/22/20 21:28 Acetaminophen (Tylenol) 650 mg Q4H PRN RECTAL FEVER 02/22/20 14:15 03/23/20 14:14 Calcium Chloride (CaCl Syringe) 1,000 mg ONCE IVP 03/01/20 10:00 03/01/20 12:00 03/01/20 09:35 Chlorhexidine Gluconate (Maira-Hex 2%) 1 applic DAILY@1999 TOPIC 02/23/20 20:00 05/23/20 19:59 02/29/20 21:11 Dextrose (Dextrose 50%) 25 ml Q30M PRN IV Hypoglycemia 02/23/20 09:00 05/23/20 08:59 Dextrose (Dextrose 50%) 50 ml Q30M PRN IV Hypoglycemia 02/23/20 09:00 05/23/20 08:59 Diphenhydramine HCl (Benadryl) 25 mg Q6H PRN ORAL Itching/Pruritis 02/22/20 14:15 03/23/20 14:14 02/26/20 01:34 Doxycycline Monohydrate (Doxycycline Monohydrate) 100 mg EVERY 12 HOURS ORAL 03/01/20 09:00 03/08/20 08:59 03/01/20 08:17 Insulin Aspart (NovoLOG) Q6HR SUBQ 02/28/20 18:00 05/28/20 17:59 02/28/20 18:48 Lorazepam (Ativan 2mg/ml 1ml) 1 mg Q6H PRN IV For Anxiety 02/26/20 08:30 03/04/20 08:29 02/29/20 04:46 Metoclopramide HCl (Reglan) 5 mg Q6H PRN IVP Nausea & Vomiting 02/29/20 10:30 03/30/20 10:29 Midazolam HCl 100 ml @ 0 mls/hr Q24H IV 02/26/20 15:06 05/26/20 15:05 02/26/20 15:48 Norepinephrine Bitartrate 8 mg/ Dextrose 500 ml @ 0 mls/hr Q24H IV 02/23/20 19:01 03/24/20 19:00 03/01/20 04:28 Pantoprazole (Protonix) 40 mg DAILY IVP 02/23/20 09:30 03/24/20 09:29 03/01/20 08:17 Phenylephrine HCl 50 mg/Dextrose 250 ml @ 6 mls/hr Q24H IV 02/29/20 10:45 03/30/20 10:44 02/29/20 22:44 Piperacillin Sod/ Tazobactam Sod 3.375 gm/Dextrose 110 ml @ 27.5 mls/hr Q8H IVPB 03/01/20 01:00 03/08/20 00:59 03/01/20 08:17 Vancomycin HCl (Vanco rx to dose) 1 ea DAILY PRN MISC Per rx protocol 02/22/20 14:30 03/23/20 14:29 Vancomycin HCl 1 gm/Dextrose 275 ml @ 183.708 mls/hr Q8H IVPB 02/28/20 21:00 03/04/20 20:59 03/01/20 05:29 Andrea Bland MD March 01, 2020 11:27
--- NOTE | 2020-03-01 11:39 | Cardiac Electrophysiology PN ---
Assessment/Plan Assessment/Plan 1. Respiratory failure due to COVID pneumonia However, cannot rule out underlying CHF as BNP is more than 2000. Echo EF 50%. His white count however is only 7.2 with lymphopenia On the Vent 100% Fio2, PEEP 5 2. Septic shock likely due to pneumonia and dehydration. On Levo and Fredrick and Abx. 3. CXR, Since 02/26/2020, interim development of small bilateral pneumothoraces, right greater than left, and extensive subcutaneous emphysema. There may also be minimal pneumomediastinum. FU surgery 4. Hypernatremia, resolved with IV fluids. 5. Dehydration. Subjective Subjective In ICU on Levo 10 and Fredrick on the vent with Fio2 100% in ICU. EF 50%. Covid PCR is positive. CXR showed Since 02/26/2020, interim development of small bilateral pneumothoraces , right greater than left, and extensive subcutaneous emphysema. There may also be minimal pneumomediastinum. Objective Last 24 Hour Vital Signs Date Time Temp Pulse Resp B/P (MAP) Pulse Ox O2 Delivery O2 Flow Rate FiO2 03/01/20 09:00 115 35 97/52 (67) 94 03/01/20 08:30 115 33 103/63 (76) 94 03/01/20 08:00 99.4 115 34 103/61 (75) 97 03/01/20 07:30 118 40 102/56 (71) 95 03/01/20 07:28 116 34 100 03/01/20 07:00 117 35 102/61 (75) 95 03/01/20 06:30 109 23 03/01/20 06:30 120 37 109/57 (74) 96 03/01/20 06:15 121 34 98/54 (69) 96 03/01/20 06:00 122 36 92/55 (67) 96 03/01/20 06:00 102/67 03/01/20 06:00 24 Mechanical Ventilator 100 03/01/20 05:30 124 32 106/57 (73) 99 03/01/20 05:00 102/57 03/01/20 05:00 22 Mechanical Ventilator 100 03/01/20 05:00 99.5 129 37 102/57 (72) 98 03/01/20 04:40 110 32 100 03/01/20 04:30 131 39 110/59 (76) 100 03/01/20 04:28 146/73 03/01/20 04:15 133 39 109/61 (77) 100 03/01/20 04:00 118 36 144/79 (100) 100 03/01/20 04:00 144/79 03/01/20 04:00 16 Mechanical Ventilator 100 03/01/20 04:00 Mechanical Ventilator 03/01/20 04:00 125 03/01/20 04:00 100 03/01/20 03:45 117 36 145/72 (96) 100 03/01/20 03:30 117 36 140/71 (94) 100 03/01/20 03:15 116 36 140/74 (96) 100 03/01/20 03:14 106 32 100 03/01/20 03:00 113 34 139/75 (96) 100 03/01/20 03:00 113 34 139/75 (96) 100 03/01/20 03:00 139/75 03/01/20 03:00 26 Mechanical Ventilator 03/01/20 02:45 117 36 147/76 (99) 100 03/01/20 02:30 115 36 146/73 (97) 97 03/01/20 02:30 115 36 146/73 (97) 97 03/01/20 02:15 111 38 150/84 (106) 99 03/01/20 02:00 104 34 142/77 (98) 100 03/01/20 02:00 145/82 03/01/20 02:00 20 Mechanical Ventilator 100 03/01/20 02:00 104 34 142/77 (98) 100 03/01/20 01:45 104 36 145/82 (103) 100 03/01/20 01:30 102 34 143/78 (99) 100 03/01/20 01:30 102 34 143/78 (99) 100 03/01/20 01:15 101 33 141/78 (99) 100 03/01/20 01:12 105 36 100 03/01/20 01:00 100 35 140/74 (96) 100 03/01/20 01:00 141/79 03/01/20 01:00 20 Mechanical Ventilator 100 03/01/20 01:00 100 35 140/74 (96) 100 03/01/20 00:45 115 33 105/55 (72) 98 03/01/20 00:30 91 29 123/66 (85) 100 03/01/20 00:30 91 29 123/66 (85) 100 03/01/20 00:15 93 31 123/68 (86) 100 03/01/20 00:00 93 31 127/72 (90) 100 03/01/20 00:00 98.8 93 31 127/72 (90) 100 03/01/20 00:00 101 03/01/20 00:00 123/68 03/01/20 00:00 22 Mechanical Ventilator 100 03/01/20 00:00 Mechanical Ventilator 03/01/20 00:00 100 02/29/20 23:30 96 32 131/80 (97) 100 02/29/20 23:00 105/59 02/29/20 23:00 117 38 105/59 (74) 100 02/29/20 22:58 16 100 02/29/20 22:52 118 39 100 02/29/20 22:47 105/60 02/29/20 22:44 118 105/60 02/29/20 22:30 116 33 106/60 (75) 78 02/29/20 22:00 104/62 02/29/20 22:00 24 Mechanical Ventilator 100 02/29/20 22:00 93 31 123/70 (87) 88 02/29/20 21:30 103 34 133/77 (95) 100 02/29/20 21:12 105 31 100 02/29/20 21:00 123/61 02/29/20 21:00 26 Mechanical Ventilator 100 02/29/20 21:00 105 32 127/67 (87) 83 02/29/20 20:30 109 24 131/73 (92) 91 02/29/20 20:00 102 02/29/20 20:00 130/76 02/29/20 20:00 24 Mechanical Ventilator 100 02/29/20 20:00 Mechanical Ventilator 02/29/20 20:00 99.0 110 32 135/73 (93) 81 02/29/20 20:00 100 02/29/20 19:30 110 36 140/73 (95) 81 02/29/20 19:15 106 31 100 02/29/20 19:00 109 32 133/75 (94) 97 02/29/20 19:00 139/76 02/29/20 19:00 22 Mechanical Ventilator 100 02/29/20 18:00 130/75 02/29/20 18:00 20 Mechanical Ventilator 100 02/29/20 18:00 106 29 130/75 (93) 100 02/29/20 17:35 130/79 02/29/20 17:34 130/75 02/29/20 17:30 112 33 130/79 (96) 92 02/29/20 17:00 115 36 123/68 (86) 95 02/29/20 17:00 125/72 02/29/20 17:00 20 Mechanical Ventilator 100 02/29/20 16:30 114 32 113/67 (82) 95 02/29/20 16:00 100 02/29/20 16:00 99.5 114 33 115/71 (86) 94 02/29/20 16:00 Mechanical Ventilator 02/29/20 16:00 107 02/29/20 16:00 124/71 02/29/20 16:00 20 Mechanical Ventilator 100 02/29/20 15:30 128 26 100 02/29/20 15:30 107 32 125/74 (91) 96 02/29/20 15:00 127/68 02/29/20 15:00 20 Mechanical Ventilator 100 02/29/20 15:00 105 30 127/68 (87) 97 02/29/20 14:54 99/60 02/29/20 14:30 101 30 117/68 (84) 99 02/29/20 14:00 20 Mechanical Ventilator 100 02/29/20 14:00 100 29 110/67 (81) 98 02/29/20 13:30 108 29 99/60 (73) 98 02/29/20 13:00 20 Mechanical Ventilator 100 02/29/20 13:00 131 32 91/54 (66) 97 02/29/20 12:58 125 80/53 02/29/20 12:30 126 29 88/52 (64) 96 02/29/20 12:00 Mechanical Ventilator 02/29/20 12:00 99.3 132 29 87/56 (66) 95 02/29/20 12:00 133 02/29/20 12:00 100 02/29/20 12:00 86/51 02/29/20 12:00 20 Mechanical Ventilator 100 Intake and Output 02/29/20 03/01/20 19:00 07:00 Intake Total 2630.280 ml 1954.423 ml Output Total 730 ml 920 ml Balance 1900.280 ml 1034.423 ml Free Water 110 ml 100 ml IV Total 2350.280 ml 1734.423 ml Tube Feeding 170 ml 120 ml Output Urine Total 730 ml 920 ml Laboratory Tests Test 02/29/20 11:50 03/01/20 05:55 Haptoglobin Pending Prothrombin Time 17.0 SEC (9.30-11.50) H Prothromb Time International Ratio 1.6 (0.9-1.1) H Fibrinogen 406 mg/dL (200-400) H Iron Level 10 ug/dL (50-175) L Total Iron Binding Capacity 73 ug/dL (250-450) L Percent Iron Saturation 14 % (15-50) L Unsaturated Iron Binding 63 ug/dL (112-346) L Ferritin 1413 NG/ML (8-388) H White Blood Count 7.4 K/UL (4.8-10.8) # Red Blood Count 3.12 M/UL (4.70-6.10) L Hemoglobin 9.4 G/DL (14.2-18.0) L Hematocrit 27.5 % (42.0-52.0) L Mean Corpuscular Volume 88 FL (80-99) Mean Corpuscular Hemoglobin 30.3 PG (27.0-31.0) Mean Corpuscular Hemoglobin Concent 34.4 G/DL (32.0-36.0) Red Cell Distribution Width 14.5 % (11.6-14.8) Platelet Count 20 K/UL (150-450) L Mean Platelet Volume 11.0 FL (6.5-10.1) H Neutrophils (%) (Auto) % (45.0-75.0) Lymphocytes (%) (Auto) % (20.0-45.0) Monocytes (%) (Auto) % (1.0-10.0) Eosinophils (%) (Auto) % (0.0-3.0) Basophils (%) (Auto) % (0.0-2.0) Differential Total Cells Counted 100 Neutrophils % (Manual) 89 % (45-75) H Lymphocytes % (Manual) 5 % (20-45) L Monocytes % (Manual) 4 % (1-10) Eosinophils % (Manual) 1 % (0-3) Basophils % (Manual) 0 % (0-2) Metamyelocytes % 1 % (0-0) H Band Neutrophils 0 % (0-8) Platelet Estimate Decreased L Platelet Morphology Normal Hypochromasia 2+ Anisocytosis 1+ Spherocytes 1+ Sodium Level 131 MMOL/L (136-145) L Potassium Level 4.5 MMOL/L (3.5-5.1) Chloride Level 97 MMOL/L (98-107) L Carbon Dioxide Level 27 MMOL/L (21-32) Anion Gap 7 mmol/L (5-15) Blood Urea Nitrogen 25 mg/dL (7-18) H Creatinine 0.9 MG/DL (0.55-1.30) Estimat Glomerular Filtration Rate > 60 mL/min (>60) Glucose Level 132 MG/DL (74-106) H Calcium Level 6.6 MG/DL (8.5-10.1) L Total Bilirubin 11.3 MG/DL (0.2-1.0) H Direct Bilirubin 10.4 MG/DL (0.0-0.3) H Aspartate Amino Transf (AST/SGOT) 57 U/L (15-37) H Alanine Aminotransferase (ALT/SGPT) 33 U/L (12-78) Alkaline Phosphatase 84 U/L (46-116) Total Protein 4.3 G/DL (6.4-8.2) L Albumin 1.1 G/DL (3.4-5.0) L Globulin 3.2 g/dL Albumin/Globulin Ratio 0.3 (1.0-2.7) L Objective HEAD AND NECK: No JVD. He is orally intubated. LUNGS: Decreased breath sounds and coarse rhonchi. SQ emphesyma CARDIOVASCULAR: Regular S1 and S2 with no gallop. ABDOMEN: Soft. EXTREMITIES: No pitting edema. Deric Garcia MD March 01, 2020 11:39
--- NOTE | 2020-03-01 11:43 | General Progress Note ---
Assessment/Plan Assessment/Plan: 74 y/o M from [place], PMH HTN, DMT2, dementia, Alzheimers dx, h/o CVA/TIA, h/o DVT, schizophrenia who presents for Fever. In the ED, pt found to be septic, Tm 100.9 , RR22, WBC 7.3, Lactic acid 2.8, and ABG revealed acute hypoxic respiratory failure. Pt was intubated and will be admitted to ICU for acute hypoxic respiratory failure and pending COVID r/o. #Septic shock 2/2 #Acute Hypoxic Respiratory Failure #HCAP #COVID positive #Lactic Acidosis #Pneumothorax -Appreciate ICU level care -pt intubated in ED, 02/21 -vent management per CCU team/Pulm, wean as tolerated -Cont. COVID isolation protocol -COVID PCR positive -elevated d-dimer and BNP likely 2/2 above -cont. pressure support, Levophed and Norepi, wean as tolerated -cont. fentanyl, versed for sedation, wean as tolerated -BCx diptheroids -echo ordered, on hold due to COVID -ID: plaquenil (stopped on 02/27), vanc, zosyn, doxycycline -CXR w/PTX -d/w Pulm and general sugery,, pt needs chest tube -pt with no family, pt is full code -chest tube placement is medically necessary for life saving measures, agree with chest tube placement -2 U FFP ordered given thrombocytopenia #Thrombocytopenia #Anemia of chronic dx -likely multifactorial, 2/2 to above/sepsis/COVID -Epogen, iron not indicated at this time given acute infection -hep panel and HIV panel ordered -abd US ordered -hit panel pending -transfuse plts for <20K and fever or if plts <10K and afebrile -Heme consulted, Dr. Verde: ok for ppx if plts >50k w/either heparin or lovenox #Jaundiced #Hyperbilirubinemia -elevated t bili, direct bili -AST/ALT normal -GI consulted, Dr. Howe, recs appreciated #Hypokalemia #Hypernatremia - improved -likely 2/2 dehydration -replace K, daily BMP, replace PRN -nephro following, recs appreciated #Type 2 DM -holding home metformin -accuchecks q6h -ISS changed from sensitive to moderate #HTN -holding home bp meds given septic shock -holding Lasix 20 mg q daily, benazepril 5 mg q daily #Alzheimer disease #Dementia #Schizophrenia #Bipolar dx -reviewed MAR from [facility], no home meds for schizophrenia/bipolar dx noted -holding home aricept given clinical picture DVT PPx: lovenox Time spent: 60 mins, 33 mins spent on critical care time. Critical Care Services performed include: Telemetry Review Hemodynamic measurement interpretation Laboratory data review and interpretation Medication adjustments Radiographic images reviewed Discussion of patient's care with ICU team, Nursing staff, Heme, Pulm Dr Klein and General Sx Dr Sales on POC. Time of note may not reflect time of encounter. Subjective Allergies: Coded Allergies: No Known Allergies (Unverified , 01/19/19) Subjective F/u for acute respiratory failure, COVID+, s/p intubation on 02/21. Remains intubated/sedated. SBP 90's on 2 pressure support CXR w/PTX Unable to obtain ROS due to clinical picture. Objective Last 24 Hour Vital Signs Date Time Temp Pulse Resp B/P (MAP) Pulse Ox O2 Delivery O2 Flow Rate FiO2 03/01/20 09:00 115 35 97/52 (67) 94 03/01/20 08:30 115 33 103/63 (76) 94 03/01/20 08:00 99.4 115 34 103/61 (75) 97 03/01/20 07:30 118 40 102/56 (71) 95 03/01/20 07:28 116 34 100 03/01/20 07:00 117 35 102/61 (75) 95 03/01/20 06:30 109 23 03/01/20 06:30 120 37 109/57 (74) 96 03/01/20 06:15 121 34 98/54 (69) 96 03/01/20 06:00 122 36 92/55 (67) 96 03/01/20 06:00 102/67 03/01/20 06:00 24 Mechanical Ventilator 100 03/01/20 05:30 124 32 106/57 (73) 99 03/01/20 05:00 102/57 03/01/20 05:00 22 Mechanical Ventilator 100 03/01/20 05:00 99.5 129 37 102/57 (72) 98 03/01/20 04:40 110 32 100 03/01/20 04:30 131 39 110/59 (76) 100 03/01/20 04:28 146/73 03/01/20 04:15 133 39 109/61 (77) 100 03/01/20 04:00 118 36 144/79 (100) 100 03/01/20 04:00 144/79 03/01/20 04:00 16 Mechanical Ventilator 100 03/01/20 04:00 Mechanical Ventilator 03/01/20 04:00 125 03/01/20 04:00 100 03/01/20 03:45 117 36 145/72 (96) 100 03/01/20 03:30 117 36 140/71 (94) 100 03/01/20 03:15 116 36 140/74 (96) 100 03/01/20 03:14 106 32 100 03/01/20 03:00 113 34 139/75 (96) 100 03/01/20 03:00 113 34 139/75 (96) 100 03/01/20 03:00 139/75 03/01/20 03:00 26 Mechanical Ventilator 03/01/20 02:45 117 36 147/76 (99) 100 03/01/20 02:30 115 36 146/73 (97) 97 03/01/20 02:30 115 36 146/73 (97) 97 03/01/20 02:15 111 38 150/84 (106) 99 03/01/20 02:00 104 34 142/77 (98) 100 03/01/20 02:00 145/82 03/01/20 02:00 20 Mechanical Ventilator 100 03/01/20 02:00 104 34 142/77 (98) 100 03/01/20 01:45 104 36 145/82 (103) 100 03/01/20 01:30 102 34 143/78 (99) 100 03/01/20 01:30 102 34 143/78 (99) 100 03/01/20 01:15 101 33 141/78 (99) 100 03/01/20 01:12 105 36 100 03/01/20 01:00 100 35 140/74 (96) 100 03/01/20 01:00 141/79 03/01/20 01:00 20 Mechanical Ventilator 100 03/01/20 01:00 100 35 140/74 (96) 100 03/01/20 00:45 115 33 105/55 (72) 98 03/01/20 00:30 91 29 123/66 (85) 100 03/01/20 00:30 91 29 123/66 (85) 100 03/01/20 00:15 93 31 123/68 (86) 100 03/01/20 00:00 93 31 127/72 (90) 100 03/01/20 00:00 98.8 93 31 127/72 (90) 100 03/01/20 00:00 101 03/01/20 00:00 123/68 03/01/20 00:00 22 Mechanical Ventilator 100 03/01/20 00:00 Mechanical Ventilator 03/01/20 00:00 100 02/29/20 23:30 96 32 131/80 (97) 100 02/29/20 23:00 105/59 02/29/20 23:00 117 38 105/59 (74) 100 02/29/20 22:58 16 100 02/29/20 22:52 118 39 100 02/29/20 22:47 105/60 02/29/20 22:44 118 105/60 02/29/20 22:30 116 33 106/60 (75) 78 02/29/20 22:00 104/62 02/29/20 22:00 24 Mechanical Ventilator 100 02/29/20 22:00 93 31 123/70 (87) 88 02/29/20 21:30 103 34 133/77 (95) 100 02/29/20 21:12 105 31 100 02/29/20 21:00 123/61 02/29/20 21:00 26 Mechanical Ventilator 100 02/29/20 21:00 105 32 127/67 (87) 83 02/29/20 20:30 109 24 131/73 (92) 91 02/29/20 20:00 102 02/29/20 20:00 130/76 02/29/20 20:00 24 Mechanical Ventilator 100 02/29/20 20:00 Mechanical Ventilator 02/29/20 20:00 99.0 110 32 135/73 (93) 81 02/29/20 20:00 100 02/29/20 19:30 110 36 140/73 (95) 81 02/29/20 19:15 106 31 100 02/29/20 19:00 109 32 133/75 (94) 97 02/29/20 19:00 139/76 02/29/20 19:00 22 Mechanical Ventilator 100 02/29/20 18:00 130/75 02/29/20 18:00 20 Mechanical Ventilator 100 02/29/20 18:00 106 29 130/75 (93) 100 02/29/20 17:35 130/79 02/29/20 17:34 130/75 02/29/20 17:30 112 33 130/79 (96) 92 02/29/20 17:00 115 36 123/68 (86) 95 02/29/20 17:00 125/72 02/29/20 17:00 20 Mechanical Ventilator 100 02/29/20 16:30 114 32 113/67 (82) 95 02/29/20 16:00 100 02/29/20 16:00 99.5 114 33 115/71 (86) 94 02/29/20 16:00 Mechanical Ventilator 02/29/20 16:00 107 02/29/20 16:00 124/71 02/29/20 16:00 20 Mechanical Ventilator 100 02/29/20 15:30 128 26 100 02/29/20 15:30 107 32 125/74 (91) 96 02/29/20 15:00 127/68 02/29/20 15:00 20 Mechanical Ventilator 100 02/29/20 15:00 105 30 127/68 (87) 97 02/29/20 14:54 99/60 02/29/20 14:30 101 30 117/68 (84) 99 02/29/20 14:00 20 Mechanical Ventilator 100 02/29/20 14:00 100 29 110/67 (81) 98 02/29/20 13:30 108 29 99/60 (73) 98 02/29/20 13:00 20 Mechanical Ventilator 100 02/29/20 13:00 131 32 91/54 (66) 97 02/29/20 12:58 125 80/53 02/29/20 12:30 126 29 88/52 (64) 96 02/29/20 12:00 Mechanical Ventilator 02/29/20 12:00 99.3 132 29 87/56 (66) 95 02/29/20 12:00 133 02/29/20 12:00 100 02/29/20 12:00 86/51 02/29/20 12:00 20 Mechanical Ventilator 100 Intake and Output 02/29/20 03/01/20 19:00 07:00 Intake Total 2630.280 ml 1954.423 ml Output Total 730 ml 920 ml Balance 1900.280 ml 1034.423 ml Free Water 110 ml 100 ml IV Total 2350.280 ml 1734.423 ml Tube Feeding 170 ml 120 ml Output Urine Total 730 ml 920 ml Laboratory Tests 02/29/20 11:50: Haptoglobin [Pending], Prothrombin Time 17.0H, Prothromb Time International Ratio 1.6H, Fibrinogen 406H, Iron Level 10L, Total Iron Binding Capacity 73L, Percent Iron Saturation 14L, Unsaturated Iron Binding 63L, Ferritin 1413H 03/01/20 05:55: White Blood Count 7.4#, Red Blood Count 3.12L, Hemoglobin 9.4L, Hematocrit 27.5L , Mean Corpuscular Volume 88, Mean Corpuscular Hemoglobin 30.3, Mean Corpuscular Hemoglobin Concent 34.4, Red Cell Distribution Width 14.5, Platelet Count 20L, Mean Platelet Volume 11.0H, Neutrophils (%) (Auto) , Lymphocytes (%) (Auto) , Monocytes (%) (Auto) , Eosinophils (%) (Auto) , Basophils (%) (Auto) , Differential Total Cells Counted 100, Neutrophils % (Manual) 89H, Lymphocytes % (Manual) 5L, Monocytes % (Manual) 4, Eosinophils % (Manual) 1, Basophils % ( Manual) 0, Metamyelocytes % 1H, Band Neutrophils 0, Platelet Estimate DecreasedL , Platelet Morphology Normal, Hypochromasia 2+, Anisocytosis 1+, Spherocytes 1+ , Sodium Level 131L, Potassium Level 4.5, Chloride Level 97L, Carbon Dioxide Level 27, Anion Gap 7, Blood Urea Nitrogen 25H, Creatinine 0.9, Estimat Glomerular Filtration Rate > 60, Glucose Level 132H, Calcium Level 6.6L, Total Bilirubin 11.3H, Direct Bilirubin 10.4H, Aspartate Amino Transf (AST/SGOT) 57H, Alanine Aminotransferase (ALT/SGPT) 33, Alkaline Phosphatase 84, Total Protein 4.3L, Albumin 1.1L, Globulin 3.2, Albumin/Globulin Ratio 0.3L Height (Feet): 5 Height (Inches): 5.00 Weight (Pounds): 123 Objective General: intubated, sedated, improved jaundice HEENT: NCAT, ETT in place, OG tube in place CV: Sinus Tachycardic on tele Pulm: equal rise in lungs GI: abd appears non-distended Ext: No lower extremity edema bilaterally Gosia Nunez M.D. March 01, 2020 11:43
[2020-03-01] MEDS: Metoclopramide 10mg/2ml Inj IVP SCH ×2 (12:45→17:06)
--- NOTE | 2020-03-01 13:04 | Nephrology Progress Note ---
Assessment/Plan Plan #Hypernatremia, hyperchloemia due to volume depletion-resovled #hypokalemia, hypophos - repleted #septic shock- r/o COVID #Hypoxemic respiratory failure s/p intbation- ventilator dependent # HTN now in shock #, DMT2 # dementia due Alzheimers dx # h/o CVA/TIA # h/o DVT # schizophrenia, bipolar - replete lytes, phos and K prn - continue icu care - monitor off IVF - replete lytes prn - vasopressor per pulmonary - antibiotics per ICU - trend lactic acid - follow cx - vent management per pulmonary - monitor lytes - BG control - hold antihypertensive Subjective ROS Limited/Unobtainable: Yes Subjective labs reviewed calcium repeted on levo drip sodium slightly lower today Fio2 100 remains intubated Objective Objective Last 24 Hour Vital Signs Date Time Temp Pulse Resp B/P (MAP) Pulse Ox O2 Delivery O2 Flow Rate FiO2 03/01/20 12:30 120 37 120/59 (79) 96 03/01/20 12:00 120 03/01/20 12:00 116 36 108/60 (76) 96 03/01/20 11:30 114 37 112/58 (76) 96 03/01/20 11:00 112 36 111/55 (73) 97 03/01/20 10:30 109 34 84/47 (59) 98 03/01/20 10:00 112 32 87/47 (60) 98 03/01/20 09:30 116 33 98/55 (69) 97 03/01/20 09:00 115 35 97/52 (67) 94 03/01/20 08:30 115 33 103/63 (76) 94 03/01/20 08:00 116 03/01/20 08:00 99.4 115 34 103/61 (75) 97 03/01/20 07:30 118 40 102/56 (71) 95 03/01/20 07:28 116 34 100 03/01/20 07:00 117 35 102/61 (75) 95 03/01/20 06:30 109 23 03/01/20 06:30 120 37 109/57 (74) 96 03/01/20 06:15 121 34 98/54 (69) 96 03/01/20 06:00 122 36 92/55 (67) 96 03/01/20 06:00 102/67 03/01/20 06:00 24 Mechanical Ventilator 100 03/01/20 05:30 124 32 106/57 (73) 99 03/01/20 05:00 102/57 03/01/20 05:00 22 Mechanical Ventilator 100 03/01/20 05:00 99.5 129 37 102/57 (72) 98 03/01/20 04:40 110 32 100 03/01/20 04:30 131 39 110/59 (76) 100 03/01/20 04:28 146/73 03/01/20 04:15 133 39 109/61 (77) 100 03/01/20 04:00 118 36 144/79 (100) 100 03/01/20 04:00 144/79 03/01/20 04:00 16 Mechanical Ventilator 100 03/01/20 04:00 Mechanical Ventilator 03/01/20 04:00 125 03/01/20 04:00 100 03/01/20 03:45 117 36 145/72 (96) 100 03/01/20 03:30 117 36 140/71 (94) 100 03/01/20 03:15 116 36 140/74 (96) 100 03/01/20 03:14 106 32 100 03/01/20 03:00 113 34 139/75 (96) 100 03/01/20 03:00 113 34 139/75 (96) 100 03/01/20 03:00 139/75 03/01/20 03:00 26 Mechanical Ventilator 03/01/20 02:45 117 36 147/76 (99) 100 03/01/20 02:30 115 36 146/73 (97) 97 03/01/20 02:30 115 36 146/73 (97) 97 03/01/20 02:15 111 38 150/84 (106) 99 03/01/20 02:00 104 34 142/77 (98) 100 03/01/20 02:00 145/82 03/01/20 02:00 20 Mechanical Ventilator 100 03/01/20 02:00 104 34 142/77 (98) 100 03/01/20 01:45 104 36 145/82 (103) 100 03/01/20 01:30 102 34 143/78 (99) 100 03/01/20 01:30 102 34 143/78 (99) 100 03/01/20 01:15 101 33 141/78 (99) 100 03/01/20 01:12 105 36 100 03/01/20 01:00 100 35 140/74 (96) 100 03/01/20 01:00 141/79 03/01/20 01:00 20 Mechanical Ventilator 100 03/01/20 01:00 100 35 140/74 (96) 100 03/01/20 00:45 115 33 105/55 (72) 98 03/01/20 00:30 91 29 123/66 (85) 100 03/01/20 00:30 91 29 123/66 (85) 100 03/01/20 00:15 93 31 123/68 (86) 100 03/01/20 00:00 93 31 127/72 (90) 100 03/01/20 00:00 98.8 93 31 127/72 (90) 100 03/01/20 00:00 101 03/01/20 00:00 123/68 03/01/20 00:00 22 Mechanical Ventilator 100 03/01/20 00:00 Mechanical Ventilator 03/01/20 00:00 100 02/29/20 23:30 96 32 131/80 (97) 100 02/29/20 23:00 105/59 02/29/20 23:00 117 38 105/59 (74) 100 02/29/20 22:58 16 100 02/29/20 22:52 118 39 100 02/29/20 22:47 105/60 02/29/20 22:44 118 105/60 02/29/20 22:30 116 33 106/60 (75) 78 02/29/20 22:00 104/62 02/29/20 22:00 24 Mechanical Ventilator 100 02/29/20 22:00 93 31 123/70 (87) 88 02/29/20 21:30 103 34 133/77 (95) 100 02/29/20 21:12 105 31 100 02/29/20 21:00 123/61 02/29/20 21:00 26 Mechanical Ventilator 100 02/29/20 21:00 105 32 127/67 (87) 83 02/29/20 20:30 109 24 131/73 (92) 91 02/29/20 20:00 102 02/29/20 20:00 130/76 02/29/20 20:00 24 Mechanical Ventilator 100 02/29/20 20:00 Mechanical Ventilator 02/29/20 20:00 99.0 110 32 135/73 (93) 81 02/29/20 20:00 100 02/29/20 19:30 110 36 140/73 (95) 81 02/29/20 19:15 106 31 100 02/29/20 19:00 109 32 133/75 (94) 97 02/29/20 19:00 139/76 02/29/20 19:00 22 Mechanical Ventilator 100 02/29/20 18:00 130/75 02/29/20 18:00 20 Mechanical Ventilator 100 02/29/20 18:00 106 29 130/75 (93) 100 02/29/20 17:35 130/79 02/29/20 17:34 130/75 02/29/20 17:30 112 33 130/79 (96) 92 02/29/20 17:00 115 36 123/68 (86) 95 02/29/20 17:00 125/72 02/29/20 17:00 20 Mechanical Ventilator 100 02/29/20 16:30 114 32 113/67 (82) 95 02/29/20 16:00 100 02/29/20 16:00 99.5 114 33 115/71 (86) 94 02/29/20 16:00 Mechanical Ventilator 02/29/20 16:00 107 02/29/20 16:00 124/71 02/29/20 16:00 20 Mechanical Ventilator 100 02/29/20 15:30 128 26 100 02/29/20 15:30 107 32 125/74 (91) 96 02/29/20 15:00 127/68 02/29/20 15:00 20 Mechanical Ventilator 100 02/29/20 15:00 105 30 127/68 (87) 97 02/29/20 14:54 99/60 02/29/20 14:30 101 30 117/68 (84) 99 02/29/20 14:00 20 Mechanical Ventilator 100 02/29/20 14:00 100 29 110/67 (81) 98 02/29/20 13:30 108 29 99/60 (73) 98 Intake and Output 02/29/20 03/01/20 19:00 07:00 Intake Total 2630.280 ml 1954.423 ml Output Total 730 ml 920 ml Balance 1900.280 ml 1034.423 ml Free Water 110 ml 100 ml IV Total 2350.280 ml 1734.423 ml Tube Feeding 170 ml 120 ml Output Urine Total 730 ml 920 ml Laboratory Tests 03/01/20 05:55: White Blood Count 7.4#, Red Blood Count 3.12L, Hemoglobin 9.4L, Hematocrit 27.5L , Mean Corpuscular Volume 88, Mean Corpuscular Hemoglobin 30.3, Mean Corpuscular Hemoglobin Concent 34.4, Red Cell Distribution Width 14.5, Platelet Count 20L, Mean Platelet Volume 11.0H, Neutrophils (%) (Auto) , Lymphocytes (%) (Auto) , Monocytes (%) (Auto) , Eosinophils (%) (Auto) , Basophils (%) (Auto) , Differential Total Cells Counted 100, Neutrophils % (Manual) 89H, Lymphocytes % (Manual) 5L, Monocytes % (Manual) 4, Eosinophils % (Manual) 1, Basophils % ( Manual) 0, Metamyelocytes % 1H, Band Neutrophils 0, Platelet Estimate DecreasedL , Platelet Morphology Normal, Hypochromasia 2+, Anisocytosis 1+, Spherocytes 1+ , Sodium Level 131L, Potassium Level 4.5, Chloride Level 97L, Carbon Dioxide Level 27, Anion Gap 7, Blood Urea Nitrogen 25H, Creatinine 0.9, Estimat Glomerular Filtration Rate > 60, Glucose Level 132H, Calcium Level 6.6L, Total Bilirubin 11.3H, Direct Bilirubin 10.4H, Aspartate Amino Transf (AST/SGOT) 57H, Alanine Aminotransferase (ALT/SGPT) 33, Alkaline Phosphatase 84, Total Protein 4.3L, Albumin 1.1L, Globulin 3.2, Albumin/Globulin Ratio 0.3L Height (Feet): 5 Height (Inches): 5.00 Weight (Pounds): 123 Objective General Appearance: other - intubated Lines, tubes and drains: peripheral HEENT: normocephalic, atraumatic, other - dry mucous membranes Neck: non-tender, normal alignment Respiratory/Chest: rhonchi - bilaterally Cardiovascular/Chest: normal peripheral pulses, normal rate Abdomen: soft, hypoactive bowel sounds Extremities: normal range of motion, no calf tenderness, non-pitting, no edema Skin Exam: normal pigmentation, warm/dry Dwayne Salas M.D. March 01, 2020 13:04
--- NOTE | 2020-03-01 16:47 | Consultation ---
History of Present Illness General Date patient seen: March 01, 2020 Chief Complaint: Upper Respiratory Illness Reason for Consultation: Hypernatremia, hyperchloremia Present Illness HPI This is a 74-year-old male [facility] who is a halfway resident that presents [facility] for respiratory viral illness CO VID positive admitted to the intensive care unit intubated on respiratory support identified on chest x-ray now to have bilateral apical pneumothoraces with significant left-sided subcutaneous emphysema. Surgery called to evaluate and assist with care. Patient seen, patient by, chart reviewed. Patient unable provide history currently sedated in ICU intubated on vent support. I personally reviewed the chest x-ray with the claim adjuster and care plan initiated. Care discussed with nurses and PCP. Significant thrombocytopenia abnormal labs worsening Allergies: Coded Allergies: No Known Allergies (Unverified , 01/19/19) Medication History Scheduled Benazepril Hcl (Benazepril Hcl), 5 MG ORAL DAILY, (Reported) Colesevelam Hcl (Welchol), 1,875 MG ORAL TWICE A DAY, (Reported) Docusate Sodium* (Colace*), 100 MG ORAL DAILY, (Reported) Donepezil Hcl* (Aricept*), 10 MG ORAL BEDTIME, (Reported) Furosemide* (Lasix*), 20 MG ORAL TWICE A DAY, (Reported) Insulin Regular, Human* (Novolin R*), 0 SUBQ .SLIDING SCALE, (Reported) Latanoprost/Pf (Latanoprost 0.005% Eye Drop), 1 DRP OP DAILY, (Reported) Metformin Hcl* (Metformin Hcl*), 500 MG ORAL THREE TIMES A DAY, (Reported) Multivitamins* (Multivitamins*), 1 TAB ORAL DAILY, (Reported) [Senna Tablet], 2 TAB PO PRN, (Reported) Scheduled PRN Acetaminophen* (Acetaminophen 325MG Tablet*), 650 MG ORAL Q4H PRN for Mild Pain/ Temp > 100.5, (Reported) Bisacodyl (Dulcolax), 10 MG RC DAILY PRN for Constipation, (Reported) Glucagon HCl (glucagon HCL), 1 MG IJ for Hypoglycemia, (Reported) Hydrocodone Bit/Acetaminophen 5-325* ([place] 5-325 Tablet*), 1 TAB ORAL Q4H PRN for For Pain, (Reported) Magnesium Hydroxide* (Milk Of Magnesia*), 30 ML ORAL QHS PRN for Constipation, ( Reported) Na Phos,M-B/Na Phos,Di-Ba* (Fleet Enema*), 133 ML RECTAL EVERY 2 DAYS PRN for Constipation, (Reported) Patient History Limited by: medical condition History Provided By: Medical Record, PMD Healthcare decision maker Resuscitation status Full Code Advanced Directive on File Past Medical/Surgical History Past Medical/Surgical History: (1) Thrombocytopenia (2) Elevated LFTs (3) Diabetes mellitus (4) DVT (deep venous thrombosis) (5) History of hypertension (6) Cerebrovascular accident (CVA) (7) Alzheimer's dementia (8) Debility (9) Respiratory distress (10) Hypotension (11) Sepsis (12) Respiratory failure with hypoxia (13) Suspected COVID-19 virus infection Review of Systems ROS Narrative unable to obtain given patients current medical condition Physical Exam General Appearance: severe distress Lines, tubes and drains: central line HEENT: other Neck: normal alignment, supple Respiratory/Chest: decreased breath sounds, crackles/rales, on vent, other - sub q air Cardiovascular/Chest: regularly irregular, tachycardia Abdomen: soft, no organomegaly, no mass, decreased bowel sounds Extremities: normal inspection Skin Exam: warm/dry Neurologic: unresponsiveness Last 24 Hour Vital Signs Date Time Temp Pulse Resp B/P (MAP) Pulse Ox O2 Delivery O2 Flow Rate FiO2 03/01/20 15:30 115 38 118/59 (78) 94 03/01/20 15:00 122 38 115/55 (75) 91 03/01/20 15:00 113 35 115/55 (75) 94 03/01/20 14:55 99.0 03/01/20 14:30 120 37 125/67 (86) 96 03/01/20 14:00 123 37 106/56 (73) 93 03/01/20 13:30 124 36 110/56 (74) 93 03/01/20 13:00 122 37 119/54 (75) 88 03/01/20 13:00 119/54 03/01/20 12:30 120 37 120/59 (79) 96 03/01/20 12:00 120 03/01/20 12:00 108/60 03/01/20 12:00 100 03/01/20 12:00 116 36 108/60 (76) 96 03/01/20 12:00 Mechanical Ventilator 03/01/20 11:30 114 37 112/58 (76) 96 03/01/20 11:15 111 38 100 03/01/20 11:00 112 36 111/55 (73) 97 03/01/20 11:00 111/55 03/01/20 10:30 109 34 84/47 (59) 98 03/01/20 10:00 87/47 03/01/20 10:00 112 32 87/47 (60) 98 03/01/20 09:30 116 33 98/55 (69) 97 03/01/20 09:00 97/52 03/01/20 09:00 115 35 97/52 (67) 94 03/01/20 08:30 115 33 103/63 (76) 94 03/01/20 08:00 116 03/01/20 08:00 103/61 03/01/20 08:00 Mechanical Ventilator 03/01/20 08:00 100 03/01/20 08:00 99.4 115 34 103/61 (75) 97 03/01/20 07:30 118 40 102/56 (71) 95 03/01/20 07:28 116 34 100 03/01/20 07:00 117 35 102/61 (75) 95 03/01/20 07:00 102/61 03/01/20 06:30 109 23 03/01/20 06:30 120 37 109/57 (74) 96 03/01/20 06:15 121 34 98/54 (69) 96 03/01/20 06:00 122 36 92/55 (67) 96 03/01/20 06:00 102/67 03/01/20 06:00 24 Mechanical Ventilator 100 03/01/20 05:30 124 32 106/57 (73) 99 03/01/20 05:00 102/57 03/01/20 05:00 22 Mechanical Ventilator 100 03/01/20 05:00 99.5 129 37 102/57 (72) 98 03/01/20 04:40 110 32 100 03/01/20 04:30 131 39 110/59 (76) 100 03/01/20 04:28 146/73 03/01/20 04:15 133 39 109/61 (77) 100 03/01/20 04:00 118 36 144/79 (100) 100 03/01/20 04:00 144/79 03/01/20 04:00 16 Mechanical Ventilator 100 03/01/20 04:00 Mechanical Ventilator 03/01/20 04:00 125 03/01/20 04:00 100 03/01/20 03:45 117 36 145/72 (96) 100 03/01/20 03:30 117 36 140/71 (94) 100 03/01/20 03:15 116 36 140/74 (96) 100 03/01/20 03:14 106 32 100 03/01/20 03:00 113 34 139/75 (96) 100 03/01/20 03:00 113 34 139/75 (96) 100 03/01/20 03:00 139/75 03/01/20 03:00 26 Mechanical Ventilator 03/01/20 02:45 117 36 147/76 (99) 100 03/01/20 02:30 115 36 146/73 (97) 97 03/01/20 02:30 115 36 146/73 (97) 97 03/01/20 02:15 111 38 150/84 (106) 99 03/01/20 02:00 104 34 142/77 (98) 100 03/01/20 02:00 145/82 03/01/20 02:00 20 Mechanical Ventilator 100 03/01/20 02:00 104 34 142/77 (98) 100 03/01/20 01:45 104 36 145/82 (103) 100 03/01/20 01:30 102 34 143/78 (99) 100 03/01/20 01:30 102 34 143/78 (99) 100 03/01/20 01:15 101 33 141/78 (99) 100 03/01/20 01:12 105 36 100 03/01/20 01:00 100 35 140/74 (96) 100 03/01/20 01:00 141/79 03/01/20 01:00 20 Mechanical Ventilator 100 03/01/20 01:00 100 35 140/74 (96) 100 03/01/20 00:45 115 33 105/55 (72) 98 03/01/20 00:30 91 29 123/66 (85) 100 03/01/20 00:30 91 29 123/66 (85) 100 03/01/20 00:15 93 31 123/68 (86) 100 03/01/20 00:00 93 31 127/72 (90) 100 03/01/20 00:00 98.8 93 31 127/72 (90) 100 03/01/20 00:00 101 03/01/20 00:00 123/68 03/01/20 00:00 22 Mechanical Ventilator 100 03/01/20 00:00 Mechanical Ventilator 03/01/20 00:00 100 02/29/20 23:30 96 32 131/80 (97) 100 02/29/20 23:00 105/59 02/29/20 23:00 117 38 105/59 (74) 100 02/29/20 22:58 16 100 02/29/20 22:52 118 39 100 02/29/20 22:47 105/60 02/29/20 22:44 118 105/60 02/29/20 22:30 116 33 106/60 (75) 78 02/29/20 22:00 104/62 02/29/20 22:00 24 Mechanical Ventilator 100 02/29/20 22:00 93 31 123/70 (87) 88 02/29/20 21:30 103 34 133/77 (95) 100 02/29/20 21:12 105 31 100 02/29/20 21:00 123/61 02/29/20 21:00 26 Mechanical Ventilator 100 02/29/20 21:00 105 32 127/67 (87) 83 02/29/20 20:30 109 24 131/73 (92) 91 02/29/20 20:00 102 02/29/20 20:00 130/76 02/29/20 20:00 24 Mechanical Ventilator 100 02/29/20 20:00 Mechanical Ventilator 02/29/20 20:00 99.0 110 32 135/73 (93) 81 02/29/20 20:00 100 02/29/20 19:30 110 36 140/73 (95) 81 02/29/20 19:15 106 31 100 02/29/20 19:00 109 32 133/75 (94) 97 02/29/20 19:00 139/76 02/29/20 19:00 22 Mechanical Ventilator 100 02/29/20 18:00 130/75 02/29/20 18:00 20 Mechanical Ventilator 100 02/29/20 18:00 106 29 130/75 (93) 100 02/29/20 17:35 130/79 02/29/20 17:34 130/75 02/29/20 17:30 112 33 130/79 (96) 92 02/29/20 17:00 115 36 123/68 (86) 95 02/29/20 17:00 125/72 02/29/20 17:00 20 Mechanical Ventilator 100 Intake and Output 02/29/20 03/01/20 19:00 07:00 Intake Total 2630.280 ml 2093.205 ml Output Total 730 ml 920 ml Balance 1900.280 ml 1173.205 ml Free Water 110 ml 100 ml IV Total 2350.280 ml 1873.205 ml Tube Feeding 170 ml 120 ml Output Urine Total 730 ml 920 ml Laboratory Tests Test 03/01/20 05:55 White Blood Count 7.4 K/UL (4.8-10.8) # Red Blood Count 3.12 M/UL (4.70-6.10) L Hemoglobin 9.4 G/DL (14.2-18.0) L Hematocrit 27.5 % (42.0-52.0) L Mean Corpuscular Volume 88 FL (80-99) Mean Corpuscular Hemoglobin 30.3 PG (27.0-31.0) Mean Corpuscular Hemoglobin Concent 34.4 G/DL (32.0-36.0) Red Cell Distribution Width 14.5 % (11.6-14.8) Platelet Count 20 K/UL (150-450) L Mean Platelet Volume 11.0 FL (6.5-10.1) H Neutrophils (%) (Auto) % (45.0-75.0) Lymphocytes (%) (Auto) % (20.0-45.0) Monocytes (%) (Auto) % (1.0-10.0) Eosinophils (%) (Auto) % (0.0-3.0) Basophils (%) (Auto) % (0.0-2.0) Differential Total Cells Counted 100 Neutrophils % (Manual) 89 % (45-75) H Lymphocytes % (Manual) 5 % (20-45) L Monocytes % (Manual) 4 % (1-10) Eosinophils % (Manual) 1 % (0-3) Basophils % (Manual) 0 % (0-2) Metamyelocytes % 1 % (0-0) H Band Neutrophils 0 % (0-8) Platelet Estimate Decreased L Platelet Morphology Normal Hypochromasia 2+ Anisocytosis 1+ Spherocytes 1+ Sodium Level 131 MMOL/L (136-145) L Potassium Level 4.5 MMOL/L (3.5-5.1) Chloride Level 97 MMOL/L (98-107) L Carbon Dioxide Level 27 MMOL/L (21-32) Anion Gap 7 mmol/L (5-15) Blood Urea Nitrogen 25 mg/dL (7-18) H Creatinine 0.9 MG/DL (0.55-1.30) Estimat Glomerular Filtration Rate > 60 mL/min (>60) Glucose Level 132 MG/DL (74-106) H Calcium Level 6.6 MG/DL (8.5-10.1) L Total Bilirubin 11.3 MG/DL (0.2-1.0) H Direct Bilirubin 10.4 MG/DL (0.0-0.3) H Aspartate Amino Transf (AST/SGOT) 57 U/L (15-37) H Alanine Aminotransferase (ALT/SGPT) 33 U/L (12-78) Alkaline Phosphatase 84 U/L (46-116) Total Protein 4.3 G/DL (6.4-8.2) L Albumin 1.1 G/DL (3.4-5.0) L Globulin 3.2 g/dL Albumin/Globulin Ratio 0.3 (1.0-2.7) L Height (Feet): 5 Height (Inches): 5.00 Weight (Pounds): 123 Medications Current Medications Medications (Trade) Dose Ordered Sig/Cirilo Route PRN Reason Start Time Stop Time Status Last Admin Dose Admin Acetaminophen (Tylenol) 650 mg Q4H PRN ORAL Fever 02/22/20 14:15 03/23/20 14:14 02/28/20 17:52 Acetaminophen (Tylenol) 650 mg Q4H PRN ORAL Mild Pain (Pain Scale 1-3) 02/22/20 14:15 03/23/20 14:14 03/01/20 14:25 Acetaminophen (Tylenol) 650 mg Q4H PRN RECTAL Mild Pain (Pain Scale 1-3) 02/22/20 14:15 03/23/20 14:14 02/22/20 21:28 Acetaminophen (Tylenol) 650 mg Q4H PRN RECTAL FEVER 02/22/20 14:15 03/23/20 14:14 Chlorhexidine Gluconate (Maria-Hex 2%) 1 applic DAILY@2000 TOPIC 02/23/20 20:00 05/23/20 19:59 02/29/20 21:11 Dextrose (Dextrose 50%) 25 ml Q30M PRN IV Hypoglycemia 02/23/20 09:00 05/23/20 08:59 Dextrose (Dextrose 50%) 50 ml Q30M PRN IV Hypoglycemia 02/23/20 09:00 05/23/20 08:59 Diphenhydramine HCl (Benadryl) 25 mg Q6H PRN ORAL Itching/Pruritis 02/22/20 14:15 03/23/20 14:14 02/26/20 01:34 Doxycycline Monohydrate (Doxycycline Monohydrate) 100 mg EVERY 12 HOURS ORAL 03/01/20 09:00 03/08/20 08:59 03/01/20 08:17 Insulin Aspart (NovoLOG) Q6HR SUBQ 02/28/20 18:00 05/28/20 17:59 03/01/20 13:22 Lorazepam (Ativan 2mg/ml 1ml) 1 mg Q6H PRN IV For Anxiety 02/26/20 08:30 03/04/20 08:29 02/29/20 04:46 Metoclopramide HCl (Reglan) 5 mg Q6HR IVP 03/01/20 12:00 03/31/20 11:59 03/01/20 12:45 Midazolam HCl 100 ml @ 0 mls/hr Q24H IV 02/26/20 15:06 05/26/20 15:05 02/26/20 15:48 Norepinephrine Bitartrate 8 mg/ Dextrose 500 ml @ 0 mls/hr Q24H IV 02/23/20 19:01 03/24/20 19:00 03/01/20 04:28 Pantoprazole (Protonix) 40 mg DAILY IVP 02/23/20 09:30 03/24/20 09:29 03/01/20 08:17 Phenylephrine HCl 50 mg/Dextrose 250 ml @ 6 mls/hr Q24H IV 02/29/20 10:45 03/30/20 10:44 02/29/20 22:44 Piperacillin Sod/ Tazobactam Sod 3.375 gm/Dextrose 110 ml @ 27.5 mls/hr Q8H IVPB 03/01/20 01:00 03/08/20 00:59 03/01/20 08:17 Vancomycin HCl (Vanco rx to dose) 1 ea DAILY PRN MISC Per rx protocol 02/22/20 14:30 03/23/20 14:29 Vancomycin HCl 1 gm/Dextrose 275 ml @ 183.708 mls/hr Q8H IVPB 02/28/20 21:00 03/04/20 20:59 03/01/20 12:45 Assessment/Plan Problem List: (1) Pneumothorax Assessment & Plan: Patient with bilateral pneumothoraces right slightly larger than left but both are very small. On the left side there is significant amount of subcutaneous emphysema extensively more than anything on the right side. Given these findings and discussion with the patient's [employer] consultant and clinical decision making currently patient is extremely ill DIC thrombocytopenia critically ill and would only recommend placing 1 chest tube at this time given how high risk he is specially with COVID status. Given the x -ray findings and the extensive subtenons emphysema recommend placing a left- sided chest tube at this time with considerations for right side if necessary. Please see procedure note. Will follow and monitor 2. A.m. chest x-ray. Thank you Barber participate in patient's care Is a tiny sliver of a left apical pneumothorax, apex of the lung approximately 3 mm from the chest wall. There is a slightly larger but still small right apical pneumothorax, with the apex of the lung approximately 14 mm from the edge of the chest wall. There is extensive subcutaneous emphysema, particularly in the left anterior chest wall, but also seen in the bilateral supraclavicular fossae. The inferior right heart border is very well-defined. Uncertain as whether this represents a component of pneumomediastinum or a small medial pneumothorax. Stable tube and line positions, satisfactory. Bilateral infiltrates appear slightly improved as compared to the previous study. Impression: Since 02/26/2020, interim development of small bilateral pneumothoraces, right greater than left, and extensive subcutaneous emphysema. There may also be minimal pneumomediastinum. Bilateral infiltrates have improved somewhat in the interim. ICD Codes: J93.9 - Pneumothorax, unspecified SNOMED: 00460068 (2) Thrombocytopenia ICD Codes: D69.6 - Thrombocytopenia, unspecified SNOMED: 613114275 (3) Elevated LFTs ICD Codes: R79.89 - Other specified abnormal findings of blood chemistry SNOMED: 804019719, 634658188 (4) Diabetes mellitus ICD Codes: E11.9 - Type 2 diabetes mellitus without complications SNOMED: 22688847 (5) DVT (deep venous thrombosis) ICD Codes: I82.409 - Acute embolism and thrombosis of unspecified deep veins of unspecified lower extremity SNOMED: 601218366 (6) History of hypertension ICD Codes: Z86.79 - Personal history of other diseases of the circulatory system SNOMED: 303293700 (7) Cerebrovascular accident (CVA) ICD Codes: I63.9 - Cerebral infarction, unspecified SNOMED: 997097798 (8) Alzheimer's dementia ICD Codes: G30.9 - Alzheimer's disease, unspecified; F02.80 - Dementia in other diseases classified elsewhere without behavioral disturbance SNOMED: 20342942 (9) Debility ICD Codes: R53.81 - Other malaise SNOMED: 57679968 (10) Respiratory distress ICD Codes: R06.03 - Acute respiratory distress SNOMED: 542530789 (11) Hypotension ICD Codes: I95.9 - Hypotension, unspecified SNOMED: 56891727 Qualifiers: Qualified Codes: I95.9 - Hypotension, unspecified (12) Respiratory failure with hypoxia ICD Codes: J96.91 - Respiratory failure, unspecified with hypoxia SNOMED: 49080039227112322 Qualifiers: Qualified Codes: J96.01 - Acute respiratory failure with hypoxia (13) Sepsis ICD Codes: A41.9 - Sepsis, unspecified organism SNOMED: 45742647 (14) Suspected COVID-19 virus infection ICD Codes: Z20.828 - Contact with and (suspected) exposure to other viral communicable diseases SNOMED: 387412513 Tip Sales March 01, 2020 16:47
--- NOTE | 2020-03-01 16:51 | Operative Note - PDOC ---
Operative Note Operative Note Date of Operation/Procedure: March 01, 2020 Pre-op Diagnosis: Left Pneumothorax with extensive subcutaneous emphysema Procedure: Left tube thoracostomy Post-op Diagnosis: same as pre-op Surgeon: Tip Sales MD Anesthesia: local Specimen: none Complications: none Condition: unstable Fluids: none Estimated Blood Loss: minimal Drains: other Implant(s) used?: No Indications for Procedure 74-year-old male currently intensive care unit intubated on ventilator support ill-appearing critically ill worsening condition recently developed bilateral pneumothoraces with extensive left-sided subcutaneous emphysema. Tube thoracostomy indicated recommended discussed on multidisciplinary team. Patient has no family and I will consent medically necessary will proceed with emergency tube placement. Description of Procedure Patient was made comfortable the bedside. The left arm was positioned above the patient's head. The left chest wall was prepped and draped in the same surgical fashion. Local anesthetic was infiltrated in the proposed skin incision site at the mid axillary at the level of the nipple. Small skin incision was made using a fresh #10 scalpel and carried through subcutaneous tissue bluntly to the fifth sixth rib intercostal space. Gently dissection entered the pleural cavity and serosanguineous fluid was evacuated with a small gush of air. A 20 Italian chest tube was placed under direct guidance without complication. Tube was sutured in place using 0 silk sutures. Dressings were applied. Chest tube was placed to Pleur-evac suction. Will monitor tube closely. Will monitor for bleeding. Chest x-ray ordered. Patient taught procedure well Tip Sales March 01, 2020 16:51
[2020-03-01] MEDS: Phenylephrine 50 MG in D5W 245 ML IV SCH (18:06)
[2020-03-01] MEDS: fentaNYL Citrate 2,500 MCG in NS 200 ML IV SCH (19:45)
[2020-03-01] MEDS: Dyna-Hex 2% Top Sol 2oz TOPIC SCH (20:42)
[2020-03-02] VITALS (45 sets, daily range): BP systolic 78–137; BP diastolic 45–73
[2020-03-02] MEDS: Metoclopramide 10mg/2ml Inj IVP SCH ×5 (00:07→23:11)
[2020-03-02] MEDS: Piperacillin/Tazobactam 3.375 GM in D5W 110 ML IVPB SCH ×3 (00:08→17:19)
[2020-03-02] MEDS: fentaNYL Citrate 2,500 MCG in NS 200 ML IV SCH (04:00)
[2020-03-02] MEDS: Vancomycin 1gm in D5W 275ml IVPB SCH ×2 (05:00→12:13)
[2020-03-02] MEDS: NovoLOG Insulin Flexpen SUBQ SCH ×4 (05:31→17:42)
[2020-03-02] MEDS: Norepinephrine Bitartrate 8 MG in D5W 500ml 492 ML IV SCH ×2 (07:29→23:10)
--- NOTE | 2020-03-02 08:15 | Hematology/Onc Progress Note ---
Assessment/Plan Assessment/Plan # Severe thrombocytopenia - potential causes multifactorial, evaluate liver and viral etiologies to begin, in this particular case, given mosf, is due to [id number], has had hyperbilirubinemia, has received heparin and zosyn both culprits as well --> Hep panel and HIV ordered -- neg --> US abd to evaluate for cirrhosis and hsm ordered ->when covid is negative --> Peripheral smear ordered to evaluate for blasts /schistocytes (ALSO HAVE Ordered for DIC panel)-->DIC panel reviewed, D-dimer high, inr higher, hapto pending --> abx and other meds have been reviewed --> ok for ppx if plt >50k w/ either heparin or lovenox --> Transfuse if Plt < 20k and fever, or if Plt < 10k without fever --> off heparin now, have ordered for hit-pf4 antibody test --> plt trend 15-->20k --> HOLD LOVENOX SQ # Anemia of chronic disease due to underlying chronic medical issues, multifactorial v Gi bleed --> Anemia workup has been ordered, rule out gi bleed --> No evidence of hemolysis is noted, peripheral smear has been reviewed. --> Hgb goal >7. Transfuse prn. --> Epogen or iron at this time is not particularly indicated --> Medications have been reviewed --> low threshold for gi evaluation in case has occult + --> bone marrow biopsy is not indicated given the other more likely causes --> hgb trend 9.9-->9.7 # Septic shock 2/2 due to covid 19 --> on abx as per id -->zosyn/doxy/vanc --> wbc remains elev # Acute Hypoxic Respiratory Failure --> now s/p vent --> in icu # HCAP COVID positive --> abx, plaq and supp care # Jaundiced with Hyperbilirubinemia --> per gi--> with ogt --> have ordered repeat bilis # Schizophrenia # Bipolar dx # Dvt ppx scds The timing of this note does not necessarily reflect the time of the patient was seen. Greatly appreciate consultation. Subjective Allergies: Coded Allergies: No Known Allergies (Unverified , 01/19/19) Subjective 5/4 remains on vent, og, rush, sedated in icu, on pressors, plt 15k, smear pending 03/02 icu, levo gtt, s/p ffp x2 units, on abx, labs pending Objective Objective Current Medications Medications (Trade) Dose Ordered Sig/Cirilo Route PRN Reason Start Time Stop Time Status Last Admin Dose Admin Acetaminophen (Tylenol) 650 mg Q4H PRN ORAL Fever 02/22/20 14:15 03/23/20 14:14 02/28/20 17:52 Acetaminophen (Tylenol) 650 mg Q4H PRN ORAL Mild Pain (Pain Scale 1-3) 02/22/20 14:15 03/23/20 14:14 03/01/20 14:25 Acetaminophen (Tylenol) 650 mg Q4H PRN RECTAL Mild Pain (Pain Scale 1-3) 02/22/20 14:15 03/23/20 14:14 02/22/20 21:28 Acetaminophen (Tylenol) 650 mg Q4H PRN RECTAL FEVER 02/22/20 14:15 03/23/20 14:14 Chlorhexidine Gluconate (Maira-Hex 2%) 1 applic DAILY@2000 TOPIC 02/23/20 20:00 05/23/20 19:59 03/01/20 20:42 Dextrose (Dextrose 50%) 25 ml Q30M PRN IV Hypoglycemia 02/23/20 09:00 05/23/20 08:59 Dextrose (Dextrose 50%) 50 ml Q30M PRN IV Hypoglycemia 02/23/20 09:00 05/23/20 08:59 Diphenhydramine HCl (Benadryl) 25 mg Q6H PRN ORAL Itching/Pruritis 02/22/20 14:15 03/23/20 14:14 02/26/20 01:34 Doxycycline Monohydrate (Doxycycline Monohydrate) 100 mg EVERY 12 HOURS ORAL 03/01/20 09:00 03/08/20 08:59 03/01/20 20:42 Fentanyl Citrate 2500 mcg/Sodium Chloride 250 ml @ 0 mls/hr Q24H IV 03/01/20 19:45 03/08/20 19:44 03/02/20 04:00 Insulin Aspart (NovoLOG) Q6HR SUBQ 02/28/20 18:00 05/28/20 17:59 03/01/20 13:22 Lorazepam (Ativan 2mg/ml 1ml) 1 mg Q6H PRN IV For Anxiety 02/26/20 08:30 03/04/20 08:29 02/29/20 04:46 Metoclopramide HCl (Reglan) 5 mg Q6HR IVP 03/01/20 12:00 03/31/20 11:59 03/02/20 05:31 Midazolam HCl 100 ml @ 0 mls/hr Q24H IV 02/26/20 15:06 05/26/20 15:05 02/26/20 15:48 Norepinephrine Bitartrate 8 mg/ Dextrose 500 ml @ 0 mls/hr Q24H IV 02/23/20 19:01 03/24/20 19:00 03/02/20 07:29 Pantoprazole (Protonix) 40 mg DAILY IVP 02/23/20 09:30 03/24/20 09:29 03/01/20 08:17 Phenylephrine HCl 50 mg/Dextrose 250 ml @ 6 mls/hr Q24H IV 02/29/20 10:45 03/30/20 10:44 03/01/20 18:06 Piperacillin Sod/ Tazobactam Sod 3.375 gm/Dextrose 110 ml @ 27.5 mls/hr Q8H IVPB 03/01/20 01:00 03/08/20 00:59 03/02/20 00:08 Vancomycin HCl (Vanco rx to dose) 1 ea DAILY PRN MISC Per rx protocol 02/22/20 14:30 03/23/20 14:29 Vancomycin HCl 1 gm/Dextrose 275 ml @ 183.708 mls/hr Q8H IVPB 02/28/20 21:00 03/04/20 20:59 03/02/20 05:00 Last 24 Hour Vital Signs Date Time Temp Pulse Resp B/P (MAP) Pulse Ox O2 Delivery O2 Flow Rate FiO2 03/02/20 07:29 119/67 03/02/20 06:29 109 23 03/02/20 06:00 105 37 113/64 (80) 86 03/02/20 06:00 26 Mechanical Ventilator 100 03/02/20 06:00 111/63 03/02/20 05:58 24 Mechanical Ventilator 100 03/02/20 05:58 117/59 03/02/20 05:30 109 28 123/65 (84) 98 03/02/20 05:00 26 Mechanical Ventilator 03/02/20 05:00 117/63 03/02/20 05:00 109 32 128/69 (88) 92 03/02/20 04:30 108 40 135/69 (91) 94 03/02/20 04:00 99.0 105 38 124/70 (88) 98 03/02/20 04:00 Mechanical Ventilator 03/02/20 04:00 27 Mechanical Ventilator 100 03/02/20 04:00 123/66 03/02/20 04:00 100 03/02/20 04:00 103 03/02/20 03:30 102 38 121/60 (80) 98 03/02/20 03:05 102 38 100 03/02/20 03:00 37 Mechanical Ventilator 100 03/02/20 03:00 124/64 03/02/20 03:00 99 38 124/64 (84) 98 03/02/20 02:30 93 38 126/71 (89) 98 03/02/20 02:00 26 Mechanical Ventilator 100 03/02/20 02:00 125/53 03/02/20 02:00 82 28 96/48 (64) 98 03/02/20 01:30 89 31 120/59 (79) 99 03/02/20 01:00 91 31 126/60 (82) 98 03/02/20 01:00 33 Mechanical Ventilator 100 03/02/20 01:00 121/60 03/02/20 00:30 100 37 131/64 (86) 99 03/02/20 00:00 Mechanical Ventilator 03/02/20 00:00 100 03/02/20 00:00 98.3 93 32 106/49 (68) 97 03/02/20 00:00 93 03/02/20 00:00 22 Mechanical Ventilator 100 03/02/20 00:00 105/54 03/01/20 23:30 86 31 124/60 (81) 100 03/01/20 23:00 75 27 98/49 (65) 99 03/01/20 23:00 22 Mechanical Ventilator 100 03/01/20 23:00 20 Mechanical Ventilator 03/01/20 23:00 98/49 03/01/20 22:50 86 35 100 03/01/20 22:30 88 31 120/63 (82) 100 5/5/20 22:00 22 Mechanical Ventilator 520 22:00 117/61 5/5/20 22:00 90 32 126/64 (84) 99 5/20 21:30 90 30 120/64 (82) 100 5/5/20 21:00 20 Mechanical Ventilator 100 5/20 21:00 96/50 5/5/20 21:00 85 30 118/62 (80) 98 5/20 20:42 18 Mechanical Ventilator 20 20:30 96 27 119/65 (83) 99 5/5/20 20:00 100 5/5/20 20:00 95 5//20 20:00 Mechanical Ventilator 20 20:00 96 31 119/60 (79) 99 20 20:00 16 Mechanical Ventilator 100 520 20:00 120/61 520 19:45 18 Mechanical Ventilator 100 20 19:05 94 31 100 03/01/20 19:00 16 Mechanical Ventilator 100 20 19:00 115/56 520 19:00 97 32 120/58 (78) 99 5/20 18:30 96 32 106/61 (76) 97 5/20 18:06 111 79/43 5/20 18:06 79/43 520 18:00 79/42 520 18:00 96 32 79/42 (54) 97 5/20 17:30 105 34 110/54 (72) 96 20 17:00 105 34 107/55 (72) 96 520 17:00 107/55 520 16:30 108 33 108/53 (71) 95 20 16:00 100 520 16:00 112/56 5/20 16:00 104 5/20 16:00 112 37 112/56 (74) 95 20 16:00 Mechanical Ventilator 20 15:30 115 38 118/59 (78) 94 5/20 15:27 106 34 100 5/20 15:00 122 38 115/55 (75) 91 520 15:00 113 35 115/55 (75) 94 5/5/20 15:00 115/55 03/01/20 14:55 99.0 03/01/20 14:30 120 37 125/67 (86) 96 03/01/20 14:00 106/57 03/01/20 14:00 123 37 106/56 (73) 93 03/01/20 13:30 124 36 110/56 (74) 93 03/01/20 13:00 122 37 119/54 (75) 88 03/01/20 13:00 119/54 03/01/20 12:30 120 37 120/59 (79) 96 03/01/20 12:00 120 03/01/20 12:00 108/60 03/01/20 12:00 100 03/01/20 12:00 116 36 108/60 (76) 96 03/01/20 12:00 Mechanical Ventilator 03/01/20 11:30 114 37 112/58 (76) 96 03/01/20 11:15 111 38 100 03/01/20 11:00 112 36 111/55 (73) 97 03/01/20 11:00 111/55 03/01/20 10:30 109 34 84/47 (59) 98 03/01/20 10:00 87/47 03/01/20 10:00 112 32 87/47 (60) 98 03/01/20 09:30 116 33 98/55 (69) 97 03/01/20 09:00 97/52 03/01/20 09:00 115 35 97/52 (67) 94 03/01/20 08:30 115 33 103/63 (76) 94 03/01/20 08:00 116 03/01/20 08:00 103/61 03/01/20 08:00 Mechanical Ventilator 03/01/20 08:00 100 03/01/20 08:00 99.4 115 34 103/61 (75) 97 03/01/20 07:30 118 40 102/56 (71) 95 03/01/20 07:28 116 34 100 03/01/20 07:00 117 35 102/61 (75) 95 03/01/20 07:00 102/61 03/01/20 06:30 109 23 03/01/20 06:30 120 37 109/57 (74) 96 03/01/20 06:15 121 34 98/54 (69) 96 03/01/20 06:00 122 36 92/55 (67) 96 03/01/20 06:00 102/67 03/01/20 06:00 24 Mechanical Ventilator 100 03/01/20 05:30 124 32 106/57 (73) 99 03/01/20 05:00 102/57 03/01/20 05:00 22 Mechanical Ventilator 100 03/01/20 05:00 99.5 129 37 102/57 (72) 98 03/01/20 04:40 110 32 100 03/01/20 04:30 131 39 110/59 (76) 100 03/01/20 04:28 146/73 03/01/20 04:15 133 39 109/61 (77) 100 03/01/20 04:00 118 36 144/79 (100) 100 03/01/20 04:00 144/79 03/01/20 04:00 16 Mechanical Ventilator 100 03/01/20 04:00 Mechanical Ventilator 03/01/20 04:00 125 03/01/20 04:00 100 03/01/20 03:45 117 36 145/72 (96) 100 03/01/20 03:30 117 36 140/71 (94) 100 03/01/20 03:15 116 36 140/74 (96) 100 03/01/20 03:14 106 32 100 03/01/20 03:00 113 34 139/75 (96) 100 03/01/20 03:00 113 34 139/75 (96) 100 03/01/20 03:00 139/75 03/01/20 03:00 26 Mechanical Ventilator 03/01/20 02:45 117 36 147/76 (99) 100 03/01/20 02:30 115 36 146/73 (97) 97 03/01/20 02:30 115 36 146/73 (97) 97 03/01/20 02:15 111 38 150/84 (106) 99 03/01/20 02:00 104 34 142/77 (98) 100 03/01/20 02:00 145/82 03/01/20 02:00 20 Mechanical Ventilator 100 03/01/20 02:00 104 34 142/77 (98) 100 03/01/20 01:45 104 36 145/82 (103) 100 03/01/20 01:30 102 34 143/78 (99) 100 03/01/20 01:30 102 34 143/78 (99) 100 03/01/20 01:15 101 33 141/78 (99) 100 03/01/20 01:12 105 36 100 03/01/20 01:00 100 35 140/74 (96) 100 03/01/20 01:00 141/79 03/01/20 01:00 20 Mechanical Ventilator 100 03/01/20 01:00 100 35 140/74 (96) 100 03/01/20 00:45 115 33 105/55 (72) 98 03/01/20 00:30 91 29 123/66 (85) 100 03/01/20 00:30 91 29 123/66 (85) 100 03/01/20 00:15 93 31 123/68 (86) 100 03/01/20 00:00 93 31 127/72 (90) 100 03/01/20 00:00 98.8 93 31 127/72 (90) 100 03/01/20 00:00 101 03/01/20 00:00 123/68 03/01/20 00:00 22 Mechanical Ventilator 100 03/01/20 00:00 Mechanical Ventilator 03/01/20 00:00 100 02/29/20 23:30 96 32 131/80 (97) 100 02/29/20 23:00 105/59 02/29/20 23:00 117 38 105/59 (74) 100 02/29/20 22:58 16 100 02/29/20 22:52 118 39 100 02/29/20 22:47 105/60 02/29/20 22:44 118 105/60 02/29/20 22:30 116 33 106/60 (75) 78 02/29/20 22:00 104/62 02/29/20 22:00 24 Mechanical Ventilator 100 02/29/20 22:00 93 31 123/70 (87) 88 02/29/20 21:30 103 34 133/77 (95) 100 02/29/20 21:12 105 31 100 02/29/20 21:00 123/61 02/29/20 21:00 26 Mechanical Ventilator 100 02/29/20 21:00 105 32 127/67 (87) 83 02/29/20 20:30 109 24 131/73 (92) 91 02/29/20 20:00 102 02/29/20 20:00 130/76 02/29/20 20:00 24 Mechanical Ventilator 100 02/29/20 20:00 Mechanical Ventilator 02/29/20 20:00 99.0 110 32 135/73 (93) 81 02/29/20 20:00 100 02/29/20 19:30 110 36 140/73 (95) 81 02/29/20 19:15 106 31 100 02/29/20 19:00 109 32 133/75 (94) 97 02/29/20 19:00 139/76 02/29/20 19:00 22 Mechanical Ventilator 100 02/29/20 18:00 130/75 02/29/20 18:00 20 Mechanical Ventilator 100 02/29/20 18:00 106 29 130/75 (93) 100 02/29/20 17:35 130/79 02/29/20 17:34 130/75 02/29/20 17:30 112 33 130/79 (96) 92 02/29/20 17:00 115 36 123/68 (86) 95 02/29/20 17:00 125/72 02/29/20 17:00 20 Mechanical Ventilator 100 02/29/20 16:30 114 32 113/67 (82) 95 02/29/20 16:00 100 02/29/20 16:00 99.5 114 33 115/71 (86) 94 02/29/20 16:00 Mechanical Ventilator 02/29/20 16:00 107 02/29/20 16:00 124/71 02/29/20 16:00 20 Mechanical Ventilator 100 02/29/20 15:30 128 26 100 02/29/20 15:30 107 32 125/74 (91) 96 02/29/20 15:00 127/68 02/29/20 15:00 20 Mechanical Ventilator 100 02/29/20 15:00 105 30 127/68 (87) 97 02/29/20 14:54 99/60 02/29/20 14:30 101 30 117/68 (84) 99 02/29/20 14:00 20 Mechanical Ventilator 100 02/29/20 14:00 100 29 110/67 (81) 98 02/29/20 13:30 108 29 99/60 (73) 98 02/29/20 13:00 20 Mechanical Ventilator 100 02/29/20 13:00 131 32 91/54 (66) 97 02/29/20 12:58 125 80/53 02/29/20 12:30 126 29 88/52 (64) 96 02/29/20 12:00 Mechanical Ventilator 02/29/20 12:00 99.3 132 29 87/56 (66) 95 02/29/20 12:00 133 02/29/20 12:00 100 02/29/20 12:00 86/51 02/29/20 12:00 20 Mechanical Ventilator 100 02/29/20 11:30 134 29 96/58 (71) 92 02/29/20 11:15 20 Mechanical Ventilator 100 02/29/20 11:00 97/57 02/29/20 11:00 20 Mechanical Ventilator 100 02/29/20 11:00 133 29 108/55 (72) 90 02/29/20 10:45 134 28 100 02/29/20 10:30 128 30 97/55 (69) 93 02/29/20 10:15 20 Mechanical Ventilator 100 02/29/20 10:00 92/57 02/29/20 10:00 20 Mechanical Ventilator 100 02/29/20 10:00 127 28 89/57 (68) 93 02/29/20 09:45 89/57 02/29/20 09:45 20 Mechanical Ventilator 100 02/29/20 09:30 128 28 87/51 (63) 93 02/29/20 09:30 90/52 02/29/20 09:30 20 Mechanical Ventilator 100 02/29/20 09:15 87/51 02/29/20 09:15 20 Mechanical Ventilator 100 02/29/20 09:00 129 28 84/49 (61) 93 02/29/20 09:00 84/49 02/29/20 09:00 20 Mechanical Ventilator 100 02/29/20 08:45 80/54 02/29/20 08:45 20 Mechanical Ventilator 100 02/29/20 08:30 130 25 93/52 (66) 92 02/29/20 08:30 90/54 02/29/20 08:30 20 Mechanical Ventilator 100 02/29/20 08:13 90/52 02/29/20 08:12 93/52 02/29/20 08:12 20 Mechanical Ventilator 100 Intake and Output 03/01/20 03/02/20 19:00 07:00 Intake Total 1288.750 ml 1348.416 ml Output Total 850 ml 980 ml Balance 438.750 ml 368.416 ml Free Water 180 ml 100 ml IV Total 988.750 ml 1138.416 ml Tube Feeding 120 ml 110 ml Output Urine Total 600 ml 380 ml Chest Tube Drainage Total 250 ml 600 ml Labs Test 02/28/20 16:00 02/28/20 21:30 02/29/20 05:10 02/29/20 11:50 Vancomycin Level Trough 29.2 ug/mL (5.0-12.0) 19.6 ug/mL (5.0-12.0) Heparin-PF4 Antibody Screen 0.08 OD (<0.40) Hepatitis A IgM Antibody Negative (Negative) Hepatitis B Surface Antigen Negative (Negative) Hepatitis B Core IgM Antibody Negative (Negative) Hepatitis C Antibody <0.1 s/co ratio White Blood Count 3.4 K/UL (4.8-10.8) Red Blood Count 3.33 M/UL (4.70-6.10) Hemoglobin 10.0 G/DL (14.2-18.0) Hematocrit 29.8 % (42.0-52.0) Mean Corpuscular Volume 89 FL (80-99) Mean Corpuscular Hemoglobin 29.9 PG (27.0-31.0) Mean Corpuscular Hemoglobin Concent 33.5 G/DL (32.0-36.0) Red Cell Distribution Width 14.3 % (11.6-14.8) Platelet Count 15 K/UL (150-450) Mean Platelet Volume 12.7 FL (6.5-10.1) Neutrophils (%) (Auto) % (45.0-75.0) Lymphocytes (%) (Auto) % (20.0-45.0) Monocytes (%) (Auto) % (1.0-10.0) Eosinophils (%) (Auto) % (0.0-3.0) Basophils (%) (Auto) % (0.0-2.0) Differential Total Cells Counted 100 Neutrophils % (Manual) 88 % (45-75) Lymphocytes % (Manual) 7 % (20-45) Monocytes % (Manual) 3 % (1-10) Eosinophils % (Manual) 1 % (0-3) Basophils % (Manual) 1 % (0-2) Band Neutrophils 0 % (0-8) Platelet Estimate Decreased Platelet Morphology Normal Hypochromasia 2+ Anisocytosis 1+ Sodium Level 134 MMOL/L (136-145) Potassium Level 3.3 MMOL/L (3.5-5.1) Chloride Level 99 MMOL/L (98-107) Carbon Dioxide Level 30 MMOL/L (21-32) Anion Gap 5 mmol/L (5-15) Blood Urea Nitrogen 19 mg/dL (7-18) Creatinine 0.6 MG/DL (0.55-1.30) Estimat Glomerular Filtration Rate > 60 mL/min (>60) Glucose Level 189 MG/DL (74-106) Calcium Level 7.0 MG/DL (8.5-10.1) Phosphorus Level 1.4 MG/DL (2.5-4.9) Magnesium Level 1.7 MG/DL (1.8-2.4) Haptoglobin 102 mg/dL (34-355) Prothrombin Time 17.0 SEC (9.30-11.50) Prothromb Time International Ratio 1.6 (0.9-1.1) Fibrinogen 406 mg/dL (200-400) Iron Level 10 ug/dL (50-175) Total Iron Binding Capacity 73 ug/dL (250-450) Percent Iron Saturation 14 % (15-50) Unsaturated Iron Binding 63 ug/dL (112-346) Ferritin 1413 NG/ML (8-388) Test 03/01/20 05:55 03/02/20 05:44 White Blood Count 7.4 K/UL (4.8-10.8) Red Blood Count 3.12 M/UL (4.70-6.10) Hemoglobin 9.4 G/DL (14.2-18.0) Hematocrit 27.5 % (42.0-52.0) Mean Corpuscular Volume 88 FL (80-99) Mean Corpuscular Hemoglobin 30.3 PG (27.0-31.0) Mean Corpuscular Hemoglobin Concent 34.4 G/DL (32.0-36.0) Red Cell Distribution Width 14.5 % (11.6-14.8) Platelet Count 20 K/UL (150-450) Mean Platelet Volume 11.0 FL (6.5-10.1) Neutrophils (%) (Auto) % (45.0-75.0) Lymphocytes (%) (Auto) % (20.0-45.0) Monocytes (%) (Auto) % (1.0-10.0) Eosinophils (%) (Auto) % (0.0-3.0) Basophils (%) (Auto) % (0.0-2.0) Differential Total Cells Counted 100 Neutrophils % (Manual) 89 % (45-75) Lymphocytes % (Manual) 5 % (20-45) Monocytes % (Manual) 4 % (1-10) Eosinophils % (Manual) 1 % (0-3) Basophils % (Manual) 0 % (0-2) Metamyelocytes % 1 % (0-0) Band Neutrophils 0 % (0-8) Platelet Estimate Decreased Platelet Morphology Normal Hypochromasia 2+ Anisocytosis 1+ Spherocytes 1+ Sodium Level 131 MMOL/L (136-145) Potassium Level 4.5 MMOL/L (3.5-5.1) Chloride Level 97 MMOL/L (98-107) Carbon Dioxide Level 27 MMOL/L (21-32) Anion Gap 7 mmol/L (5-15) Blood Urea Nitrogen 25 mg/dL (7-18) Creatinine 0.9 MG/DL (0.55-1.30) Estimat Glomerular Filtration Rate > 60 mL/min (>60) Glucose Level 132 MG/DL (74-106) Calcium Level 6.6 MG/DL (8.5-10.1) Total Bilirubin 11.3 MG/DL (0.2-1.0) Direct Bilirubin 10.4 MG/DL (0.0-0.3) Aspartate Amino Transf (AST/SGOT) 57 U/L (15-37) Alanine Aminotransferase (ALT/SGPT) 33 U/L (12-78) Alkaline Phosphatase 84 U/L (46-116) Total Protein 4.3 G/DL (6.4-8.2) Albumin 1.1 G/DL (3.4-5.0) Globulin 3.2 g/dL Albumin/Globulin Ratio 0.3 (1.0-2.7) Height (Feet): 5 Height (Inches): 5.00 Weight (Pounds): 120 Objective Physical Exam: Vitals: reviewed General: NAD HEENT: nc, at ++Ogt Neck: supple Chest: in the icu, remains intubated++ Cardiovascular: RRR, no s3, s4 Abdomen: soft, nontender, nd Extremities: no cce, normal range of motion Neuro: alert to self : Montez Maradiaga MD March 02, 2020 08:14
[2020-03-02] MEDS: Pantoprazole Inj IVP SCH (08:54)
[2020-03-02] MEDS: Doxycycline Monohydrate 100mg ORAL SCH ×2 (08:54→21:07)
--- NOTE | 2020-03-02 09:37 | General Progress Note ---
Assessment/Plan Problem List: (1) Elevated LFTs ICD Codes: R79.89 - Other specified abnormal findings of blood chemistry SNOMED: 082932448, 334517286 (2) Thrombocytopenia ICD Codes: D69.6 - Thrombocytopenia, unspecified SNOMED: 422923549 (3) Suspected COVID-19 virus infection ICD Codes: Z20.828 - Contact with and (suspected) exposure to other viral communicable diseases SNOMED: 875921476 (4) Respiratory failure with hypoxia ICD Codes: J96.91 - Respiratory failure, unspecified with hypoxia SNOMED: 09150593899586046 Qualifiers: Qualified Codes: J96.01 - Acute respiratory failure with hypoxia (5) Hypotension ICD Codes: I95.9 - Hypotension, unspecified SNOMED: 88593307 Qualifiers: Qualified Codes: I95.9 - Hypotension, unspecified (6) Alzheimer's dementia ICD Codes: G30.9 - Alzheimer's disease, unspecified; F02.80 - Dementia in other diseases classified elsewhere without behavioral disturbance SNOMED: 80748021 (7) Cerebrovascular accident (CVA) ICD Codes: I63.9 - Cerebral infarction, unspecified SNOMED: 864503630 (8) History of hypertension ICD Codes: Z86.79 - Personal history of other diseases of the circulatory system SNOMED: 413428550 (9) Diabetes mellitus ICD Codes: E11.9 - Type 2 diabetes mellitus without complications SNOMED: 23081727 Assessment/Plan: reglan monitor for residuals fu labs abx per ID current TF at 10 cc, will increase to 40 cc Subjective ROS Limited/Unobtainable: No Allergies: Coded Allergies: No Known Allergies (Unverified , 01/19/19) Objective Last 24 Hour Vital Signs Date Time Temp Pulse Resp B/P (MAP) Pulse Ox O2 Delivery O2 Flow Rate FiO2 03/02/20 07:29 119/67 03/02/20 07:22 112 37 100 03/02/20 06:29 109 23 03/02/20 06:00 105 37 113/64 (80) 86 03/02/20 06:00 26 Mechanical Ventilator 100 03/02/20 06:00 111/63 03/02/20 05:58 24 Mechanical Ventilator 100 03/02/20 05:58 117/59 03/02/20 05:30 109 28 123/65 (84) 98 03/02/20 05:00 26 Mechanical Ventilator 03/02/20 05:00 117/63 03/02/20 05:00 109 32 128/69 (88) 92 03/02/20 04:30 108 40 135/69 (91) 94 03/02/20 04:00 99.0 105 38 124/70 (88) 98 03/02/20 04:00 Mechanical Ventilator 03/02/20 04:00 27 Mechanical Ventilator 100 03/02/20 04:00 123/66 03/02/20 04:00 100 03/02/20 04:00 103 03/02/20 03:30 102 38 121/60 (80) 98 03/02/20 03:05 102 38 100 03/02/20 03:00 37 Mechanical Ventilator 100 03/02/20 03:00 124/64 03/02/20 03:00 99 38 124/64 (84) 98 03/02/20 02:30 93 38 126/71 (89) 98 03/02/20 02:00 26 Mechanical Ventilator 100 03/02/20 02:00 125/53 03/02/20 02:00 82 28 96/48 (64) 98 03/02/20 01:30 89 31 120/59 (79) 99 03/02/20 01:00 91 31 126/60 (82) 98 03/02/20 01:00 33 Mechanical Ventilator 100 03/02/20 01:00 121/60 03/02/20 00:30 100 37 131/64 (86) 99 03/02/20 00:00 Mechanical Ventilator 03/02/20 00:00 100 03/02/20 00:00 98.3 93 32 106/49 (68) 97 03/02/20 00:00 93 03/02/20 00:00 22 Mechanical Ventilator 100 03/02/20 00:00 105/54 03/01/20 23:30 86 31 124/60 (81) 100 03/01/20 23:00 75 27 98/49 (65) 99 03/01/20 23:00 22 Mechanical Ventilator 100 03/01/20 23:00 20 Mechanical Ventilator 03/01/20 23:00 98/49 03/01/20 22:50 86 35 100 03/01/20 22:30 88 31 120/63 (82) 100 5/5/20 22:00 22 Mechanical Ventilator 20 22:00 117/61 5/20 22:00 90 32 126/64 (84) 99 5/20 21:30 90 30 120/64 (82) 100 520 21:00 20 Mechanical Ventilator 100 5/20 21:00 96/50 520 21:00 85 30 118/62 (80) 98 20 20:42 18 Mechanical Ventilator 20 20:30 96 27 119/65 (83) 99 20 20:00 100 520 20:00 95 520 20:00 Mechanical Ventilator 20 20:00 96 31 119/60 (79) 99 20 20:00 16 Mechanical Ventilator 100 20 20:00 120/61 520 19:45 18 Mechanical Ventilator 100 03/01/20 19:05 94 31 100 03/01/20 19:00 16 Mechanical Ventilator 100 03/01/20 19:00 115/56 03/01/20 19:00 97 32 120/58 (78) 99 20 18:30 96 32 106/61 (76) 97 20 18:06 111 79/43 520 18:06 79/43 20 18:00 79/42 20 18:00 96 32 79/42 (54) 97 20 17:30 105 34 110/54 (72) 96 20 17:00 105 34 107/55 (72) 96 20 17:00 107/55 20 16:30 108 33 108/53 (71) 95 20 16:00 100 20 16:00 112/56 20 16:00 104 20 16:00 112 37 112/56 (74) 95 03/01/20 16:00 Mechanical Ventilator 03/01/20 15:30 115 38 118/59 (78) 94 03/01/20 15:27 106 34 100 20 15:00 122 38 115/55 (75) 91 20 15:00 113 35 115/55 (75) 94 5/5/20 15:00 115/55 03/01/20 14:55 99.0 03/01/20 14:30 120 37 125/67 (86) 96 03/01/20 14:00 106/57 03/01/20 14:00 123 37 106/56 (73) 93 03/01/20 13:30 124 36 110/56 (74) 93 03/01/20 13:00 122 37 119/54 (75) 88 03/01/20 13:00 119/54 03/01/20 12:30 120 37 120/59 (79) 96 03/01/20 12:00 120 03/01/20 12:00 108/60 03/01/20 12:00 100 03/01/20 12:00 116 36 108/60 (76) 96 03/01/20 12:00 Mechanical Ventilator 03/01/20 11:30 114 37 112/58 (76) 96 03/01/20 11:15 111 38 100 03/01/20 11:00 112 36 111/55 (73) 97 03/01/20 11:00 111/55 03/01/20 10:30 109 34 84/47 (59) 98 03/01/20 10:00 87/47 03/01/20 10:00 112 32 87/47 (60) 98 Intake and Output 03/01/20 03/02/20 19:00 07:00 Intake Total 1288.750 ml 1348.416 ml Output Total 850 ml 980 ml Balance 438.750 ml 368.416 ml Free Water 180 ml 100 ml IV Total 988.750 ml 1138.416 ml Tube Feeding 120 ml 110 ml Output Urine Total 600 ml 380 ml Chest Tube Drainage Total 250 ml 600 ml Laboratory Tests 03/02/20 05:44: Vitamin D 25-Hydroxy [Pending], 25-Hydroxy Vitamin D2 [Pending], 25-Hydroxy Vitamin D3 [Pending] Height (Feet): 5 Height (Inches): 5.00 Weight (Pounds): 120 General Appearance: no apparent distress EENT: normal ENT inspection Neck: supple Cardiovascular: normal rate Respiratory/Chest: decreased breath sounds Abdomen: normal bowel sounds, non tender, soft Extremities: non-tender Domo Howe MD March 02, 2020 09:37
--- NOTE | 2020-03-02 09:56 | Surgery Progress Note ---
Surgery Progress Note Subjective Procedure Performed Left tube thoracostomy Additional Comments chest tube with 800cc serosang output no active bleeding pending labs cxr noted worsening prognosis guarded Objective Last 24 Hour Vital Signs Date Time Temp Pulse Resp B/P (MAP) Pulse Ox O2 Delivery O2 Flow Rate FiO2 03/02/20 07:29 119/67 03/02/20 07:22 112 37 100 03/02/20 06:29 109 23 03/02/20 06:00 105 37 113/64 (80) 86 03/02/20 06:00 26 Mechanical Ventilator 100 03/02/20 06:00 111/63 03/02/20 05:58 24 Mechanical Ventilator 100 03/02/20 05:58 117/59 03/02/20 05:30 109 28 123/65 (84) 98 03/02/20 05:00 26 Mechanical Ventilator 03/02/20 05:00 117/63 03/02/20 05:00 109 32 128/69 (88) 92 03/02/20 04:30 108 40 135/69 (91) 94 03/02/20 04:00 99.0 105 38 124/70 (88) 98 03/02/20 04:00 Mechanical Ventilator 03/02/20 04:00 27 Mechanical Ventilator 100 03/02/20 04:00 123/66 03/02/20 04:00 100 03/02/20 04:00 103 03/02/20 03:30 102 38 121/60 (80) 98 03/02/20 03:05 102 38 100 03/02/20 03:00 37 Mechanical Ventilator 100 03/02/20 03:00 124/64 03/02/20 03:00 99 38 124/64 (84) 98 03/02/20 02:30 93 38 126/71 (89) 98 03/02/20 02:00 26 Mechanical Ventilator 100 03/02/20 02:00 125/53 03/02/20 02:00 82 28 96/48 (64) 98 03/02/20 01:30 89 31 120/59 (79) 99 03/02/20 01:00 91 31 126/60 (82) 98 03/02/20 01:00 33 Mechanical Ventilator 100 03/02/20 01:00 121/60 03/02/20 00:30 100 37 131/64 (86) 99 03/02/20 00:00 Mechanical Ventilator 03/02/20 00:00 100 03/02/20 00:00 98.3 93 32 106/49 (68) 97 03/02/20 00:00 93 03/02/20 00:00 22 Mechanical Ventilator 100 03/02/20 00:00 105/54 03/01/20 23:30 86 31 124/60 (81) 100 20 23:00 75 27 98/49 (65) 99 03/01/20 23:00 22 Mechanical Ventilator 100 03/01/20 23:00 20 Mechanical Ventilator 03/01/20 23:00 98/49 20 22:50 86 35 100 03/01/20 22:30 88 31 120/63 (82) 100 03/01/20 22:00 22 Mechanical Ventilator 03/01/20 22:00 117/61 03/01/20 22:00 90 32 126/64 (84) 99 20 21:30 90 30 120/64 (82) 100 03/01/20 21:00 20 Mechanical Ventilator 100 03/01/20 21:00 96/50 03/01/20 21:00 85 30 118/62 (80) 98 20 20:42 18 Mechanical Ventilator 03/01/20 20:30 96 27 119/65 (83) 99 20 20:00 100 03/01/20 20:00 95 20 20:00 Mechanical Ventilator 03/01/20 20:00 96 31 119/60 (79) 99 20 20:00 16 Mechanical Ventilator 100 20 20:00 120/61 03/01/20 19:45 18 Mechanical Ventilator 100 03/01/20 19:05 94 31 100 20 19:00 16 Mechanical Ventilator 100 20 19:00 115/56 20 19:00 97 32 120/58 (78) 99 20 18:30 96 32 106/61 (76) 97 20 18:06 111 79/43 520 18:06 79/43 20 18:00 79/42 20 18:00 96 32 79/42 (54) 97 20 17:30 105 34 110/54 (72) 96 03/01/20 17:00 105 34 107/55 (72) 96 03/01/20 17:00 107/55 03/01/20 16:30 108 33 108/53 (71) 95 03/01/20 16:00 100 03/01/20 16:00 112/56 03/01/20 16:00 104 03/01/20 16:00 112 37 112/56 (74) 95 03/01/20 16:00 Mechanical Ventilator 03/01/20 15:30 115 38 118/59 (78) 94 03/01/20 15:27 106 34 100 03/01/20 15:00 122 38 115/55 (75) 91 03/01/20 15:00 113 35 115/55 (75) 94 03/01/20 15:00 115/55 03/01/20 14:55 99.0 03/01/20 14:30 120 37 125/67 (86) 96 03/01/20 14:00 106/57 03/01/20 14:00 123 37 106/56 (73) 93 03/01/20 13:30 124 36 110/56 (74) 93 03/01/20 13:00 122 37 119/54 (75) 88 03/01/20 13:00 119/54 03/01/20 12:30 120 37 120/59 (79) 96 03/01/20 12:00 120 03/01/20 12:00 108/60 03/01/20 12:00 100 03/01/20 12:00 116 36 108/60 (76) 96 03/01/20 12:00 Mechanical Ventilator 03/01/20 11:30 114 37 112/58 (76) 96 03/01/20 11:15 111 38 100 03/01/20 11:00 112 36 111/55 (73) 97 03/01/20 11:00 111/55 03/01/20 10:30 109 34 84/47 (59) 98 03/01/20 10:00 87/47 03/01/20 10:00 112 32 87/47 (60) 98 I&O Intake and Output 03/01/20 03/02/20 19:00 07:00 Intake Total 1288.750 ml 1348.416 ml Output Total 850 ml 980 ml Balance 438.750 ml 368.416 ml Free Water 180 ml 100 ml IV Total 988.750 ml 1138.416 ml Tube Feeding 120 ml 110 ml Output Urine Total 600 ml 380 ml Chest Tube Drainage Total 250 ml 600 ml Dressing: other Wound: other Drains: other Cardiovascular: RSR Respiratory: decreased breath sounds Abdomen: soft, non-distended, decreased bowel sounds Extremities: no tenderness, no cyanosis Laboratory Tests Test 03/02/20 05:44 Vitamin D 25-Hydroxy Pending 25-Hydroxy Vitamin D2 Pending 25-Hydroxy Vitamin D3 Pending Plan Problems: (1) Pneumothorax Assessment & Plan: Patient with bilateral pneumothoraces right slightly larger than left but both are very small. On the left side there is significant amount of subcutaneous emphysema extensively more than anything on the right side. Given these findings and discussion with the patient's lead case manager and clinical decision making currently patient is extremely ill DIC thrombocytopenia critically ill and would only recommend placing 1 chest tube at this time given how high risk he is specially with COVID status. Given the x -ray findings and the extensive subtenons emphysema recommend placing a left- sided chest tube at this time with considerations for right side if necessary. Please see procedure note. Will follow and monitor 2. A.m. chest x-ray. Thank you Barber participate in patient's care AM CXR may need right chest tube Is a tiny sliver of a left apical pneumothorax, apex of the lung approximately 3 mm from the chest wall. There is a slightly larger but still small right apical pneumothorax, with the apex of the lung approximately 14 mm from the edge of the chest wall. There is extensive subcutaneous emphysema, particularly in the left anterior chest wall, but also seen in the bilateral supraclavicular fossae. The inferior right heart border is very well-defined. Uncertain as whether this represents a component of pneumomediastinum or a small medial pneumothorax. Stable tube and line positions, satisfactory. Bilateral infiltrates appear slightly improved as compared to the previous study. Impression: Since 02/26/2020, interim development of small bilateral pneumothoraces, right greater than left, and extensive subcutaneous emphysema. There may also be minimal pneumomediastinum. Bilateral infiltrates have improved somewhat in the interim. (2) Thrombocytopenia (3) Elevated LFTs (4) Diabetes mellitus (5) DVT (deep venous thrombosis) (6) History of hypertension (7) Cerebrovascular accident (CVA) (8) Alzheimer's dementia (9) Debility (10) Respiratory distress (11) Hypotension (12) Respiratory failure with hypoxia (13) Sepsis (14) Suspected COVID-19 virus infection Tip [employer] March 02, 2020 09:56
--- NOTE | 2020-03-02 10:06 | General Progress Note ---
Assessment/Plan Assessment/Plan: 74 y/o M from MI, PMH HTN, DMT2, dementia, Alzheimers dx, h/o CVA/TIA, h/o DVT, schizophrenia who presents for Fever. In the ED, pt found to be septic, Tm 100.9 , RR22, WBC 7.3, Lactic acid 2.8, and ABG revealed acute hypoxic respiratory failure. Pt was intubated and will be admitted to ICU for acute hypoxic respiratory failure and pending COVID r/o. #Septic shock 2/2 #Acute Hypoxic Respiratory Failure #HCAP #COVID positive #Lactic Acidosis #Pneumothorax -Appreciate ICU level care -pt intubated in ED, 02/21 -vent management per CCU team/Pulm, wean as tolerated -Cont. COVID isolation protocol -COVID PCR positive -elevated d-dimer and BNP likely 2/2 above -cont. pressure support, Levophed and Norepi, wean as tolerated -cont. fentanyl, versed for sedation, wean as tolerated -BCx diptheroids -echo ordered, on hold due to COVID -ID: plaquenil (stopped on 02/27), vanc, zosyn, doxycycline -CXR w/PTX -d/w Pulm and general sugery, pt needs chest tube -chest tube placement is medically necessary for life saving measures, agree with chest tube placement -03/01: s/p chest tube placement by general sx and 2 U FFP ordered given thrombocytopenia -Cont ICU level of care #Thrombocytopenia #Anemia of chronic dx -likely multifactorial, 2/2 to above/sepsis/COVID -Epogen, iron not indicated at this time given acute infection -hep panel and HIV panel ordered -abd US ordered -hit panel pending -transfuse plts for <20K and fever or if plts <10K and afebrile -Heme consulted, Dr. Verde: ok for ppx if plts >50k w/either heparin or lovenox #Jaundiced #Hyperbilirubinemia -elevated t bili, direct bili -AST/ALT normal -GI consulted, Dr. Howe, recs appreciated #Hypokalemia #Hypernatremia - improved -likely 2/2 dehydration -replace K, daily BMP, replace PRN -nephro following, recs appreciated #Type 2 DM -holding home metformin -accuchecks q6h -ISS changed from sensitive to moderate #HTN -holding home bp meds given septic shock -holding Lasix 20 mg q daily, benazepril 5 mg q daily #Alzheimer disease #Dementia #Schizophrenia #Bipolar dx -reviewed MAR from [facility], no home meds for schizophrenia/bipolar dx noted -holding home aricept given clinical picture DVT PPx: lovenox Time spent: 54 mins, 30 mins spent on critical care time. Critical Care Services performed include: Telemetry Review Hemodynamic measurement interpretation Laboratory data review and interpretation Medication adjustments Radiographic images reviewed Discussion of patient's care with ICU team, Nursing staff and consulting physicians on POC. Time of note may not reflect time of encounter. Subjective Allergies: Coded Allergies: No Known Allergies (Unverified , 01/19/19) Subjective F/u for acute respiratory failure, COVID+, s/p intubation on 02/21. Remains intubated/sedated. FiO2 100%. s/p left chest tube placed on 03/01 by general sx. Remains on 2 pressure support Unable to obtain ROS due to clinical picture. Objective Last 24 Hour Vital Signs Date Time Temp Pulse Resp B/P (MAP) Pulse Ox O2 Delivery O2 Flow Rate FiO2 03/02/20 07:29 119/67 03/02/20 07:22 112 37 100 03/02/20 06:29 109 23 03/02/20 06:00 105 37 113/64 (80) 86 03/02/20 06:00 26 Mechanical Ventilator 100 03/02/20 06:00 111/63 03/02/20 05:58 24 Mechanical Ventilator 100 03/02/20 05:58 117/59 03/02/20 05:30 109 28 123/65 (84) 98 03/02/20 05:00 26 Mechanical Ventilator 03/02/20 05:00 117/63 03/02/20 05:00 109 32 128/69 (88) 92 03/02/20 04:30 108 40 135/69 (91) 94 03/02/20 04:00 99.0 105 38 124/70 (88) 98 03/02/20 04:00 Mechanical Ventilator 03/02/20 04:00 27 Mechanical Ventilator 100 03/02/20 04:00 123/66 03/02/20 04:00 100 03/02/20 04:00 103 5/6/20 03:30 102 38 121/60 (80) 98 03/02/20 03:05 102 38 100 03/02/20 03:00 37 Mechanical Ventilator 100 03/02/20 03:00 124/64 03/02/20 03:00 99 38 124/64 (84) 98 03/02/20 02:30 93 38 126/71 (89) 98 03/02/20 02:00 26 Mechanical Ventilator 100 03/02/20 02:00 125/53 03/02/20 02:00 82 28 96/48 (64) 98 03/02/20 01:30 89 31 120/59 (79) 99 03/02/20 01:00 91 31 126/60 (82) 98 03/02/20 01:00 33 Mechanical Ventilator 100 03/02/20 01:00 121/60 03/02/20 00:30 100 37 131/64 (86) 99 03/02/20 00:00 Mechanical Ventilator 03/02/20 00:00 100 03/02/20 00:00 98.3 93 32 106/49 (68) 97 03/02/20 00:00 93 03/02/20 00:00 22 Mechanical Ventilator 100 03/02/20 00:00 105/54 03/01/20 23:30 86 31 124/60 (81) 100 03/01/20 23:00 75 27 98/49 (65) 99 03/01/20 23:00 22 Mechanical Ventilator 100 03/01/20 23:00 20 Mechanical Ventilator 03/01/20 23:00 98/49 03/01/20 22:50 86 35 100 03/01/20 22:30 88 31 120/63 (82) 100 03/01/20 22:00 22 Mechanical Ventilator 03/01/20 22:00 117/61 03/01/20 22:00 90 32 126/64 (84) 99 03/01/20 21:30 90 30 120/64 (82) 100 03/01/20 21:00 20 Mechanical Ventilator 100 03/01/20 21:00 96/50 20 21:00 85 30 118/62 (80) 98 20 20:42 18 Mechanical Ventilator 03/01/20 20:30 96 27 119/65 (83) 99 03/01/20 20:00 100 5/5/20 20:00 95 03/01/20 20:00 Mechanical Ventilator 03/01/20 20:00 96 31 119/60 (79) 99 03/01/20 20:00 16 Mechanical Ventilator 100 03/01/20 20:00 120/61 03/01/20 19:45 18 Mechanical Ventilator 100 03/01/20 19:05 94 31 100 03/01/20 19:00 16 Mechanical Ventilator 100 03/01/20 19:00 115/56 03/01/20 19:00 97 32 120/58 (78) 99 03/01/20 18:30 96 32 106/61 (76) 97 03/01/20 18:06 111 79/43 03/01/20 18:06 79/43 03/01/20 18:00 79/42 03/01/20 18:00 96 32 79/42 (54) 97 03/01/20 17:30 105 34 110/54 (72) 96 03/01/20 17:00 105 34 107/55 (72) 96 03/01/20 17:00 107/55 03/01/20 16:30 108 33 108/53 (71) 95 03/01/20 16:00 100 03/01/20 16:00 112/56 03/01/20 16:00 104 03/01/20 16:00 112 37 112/56 (74) 95 03/01/20 16:00 Mechanical Ventilator 03/01/20 15:30 115 38 118/59 (78) 94 03/01/20 15:27 106 34 100 03/01/20 15:00 122 38 115/55 (75) 91 03/01/20 15:00 113 35 115/55 (75) 94 03/01/20 15:00 115/55 03/01/20 14:55 99.0 03/01/20 14:30 120 37 125/67 (86) 96 03/01/20 14:00 106/57 03/01/20 14:00 123 37 106/56 (73) 93 03/01/20 13:30 124 36 110/56 (74) 93 03/01/20 13:00 122 37 119/54 (75) 88 03/01/20 13:00 119/54 03/01/20 12:30 120 37 120/59 (79) 96 03/01/20 12:00 120 03/01/20 12:00 108/60 03/01/20 12:00 100 03/01/20 12:00 116 36 108/60 (76) 96 03/01/20 12:00 Mechanical Ventilator 03/01/20 11:30 114 37 112/58 (76) 96 03/01/20 11:15 111 38 100 03/01/20 11:00 112 36 111/55 (73) 97 03/01/20 11:00 111/55 03/01/20 10:30 109 34 84/47 (59) 98 Intake and Output 03/01/20 03/02/20 19:00 07:00 Intake Total 1288.750 ml 1348.416 ml Output Total 850 ml 980 ml Balance 438.750 ml 368.416 ml Free Water 180 ml 100 ml IV Total 988.750 ml 1138.416 ml Tube Feeding 120 ml 110 ml Output Urine Total 600 ml 380 ml Chest Tube Drainage Total 250 ml 600 ml Laboratory Tests 03/02/20 05:44: Vitamin D 25-Hydroxy [Pending], 25-Hydroxy Vitamin D2 [Pending], 25-Hydroxy Vitamin D3 [Pending] Height (Feet): 5 Height (Inches): 5.00 Weight (Pounds): 120 Objective General: intubated, sedated, improved jaundice HEENT: NCAT, ETT in place, OG tube in place CV: Sinus Tachycardic on tele Pulm: equal rise in lungs, left chest tube draining 900 cc orange fluid per nurse GI: abd appears non-distended Ext: No lower extremity edema bilaterally Gosia Nunez M.D. March 02, 2020 10:06
--- NOTE | 2020-03-02 10:21 | Diagnostic Imaging Report ---
Indication: Shortness of breath Technique: One view of the chest Comparison: 03/01/2020 Findings: Left chest tube again demonstrated. No definite pneumothorax although overlying emphysema makes evaluation difficult. Previously demonstrated small right apical pneumothorax is not clearly evident on this exam. Stable satisfactory positions of endotracheal tube, orogastric tube, right jugular central venous catheter. Extensive bilateral subcutaneous emphysema is unchanged. Extensive bilateral right greater than left infiltrates are unchanged. Impression: Previously demonstrated small bilateral apical pneumothoraces are no longer evident. Otherwise essentially unchanged since previous day's exam
--- NOTE | 2020-03-02 10:55 | Nephrology Progress Note ---
Assessment/Plan Plan #Hypernatremia, hyperchloemia due to volume depletion-resovled #hypokalemia, hypophos - repleted #septic shock- r/o COVID #Hypoxemic respiratory failure s/p intbation- ventilator dependent # HTN now in shock #, DMT2 # dementia due Alzheimers dx # h/o CVA/TIA # h/o DVT # schizophrenia, bipolar - replete lytes, phos and K prn - continue icu care - monitor off IVF - replete lytes prn - vasopressor per pulmonary - antibiotics per ICU - trend lactic acid - follow cx - vent management per pulmonary - monitor lytes - BG control - hold antihypertensive Subjective ROS Limited/Unobtainable: Yes Subjective labs reviewed calcium repeted on levo drip sodium slightly lower today Fio2 100 remains intubated Objective Objective Last 24 Hour Vital Signs Date Time Temp Pulse Resp B/P (MAP) Pulse Ox O2 Delivery O2 Flow Rate FiO2 03/02/20 10:00 105 37 118/64 (82) 100 03/02/20 09:30 104 36 115/65 (82) 100 03/02/20 09:00 105 36 108/63 (78) 100 03/02/20 08:30 112 37 97/51 (66) 100 03/02/20 08:00 100 03/02/20 08:00 99.0 106 38 117/66 (83) 95 03/02/20 08:00 Mechanical Ventilator 03/02/20 07:30 105 36 113/65 (81) 88 03/02/20 07:29 119/67 03/02/20 07:22 112 37 100 03/02/20 07:00 106 38 113/65 (81) 93 03/02/20 06:29 109 23 03/02/20 06:00 105 37 113/64 (80) 86 03/02/20 06:00 26 Mechanical Ventilator 100 03/02/20 06:00 111/63 03/02/20 05:58 24 Mechanical Ventilator 100 03/02/20 05:58 117/59 03/02/20 05:30 109 28 123/65 (84) 98 03/02/20 05:00 26 Mechanical Ventilator 03/02/20 05:00 117/63 03/02/20 05:00 109 32 128/69 (88) 92 03/02/20 04:30 108 40 135/69 (91) 94 03/02/20 04:00 99.0 105 38 124/70 (88) 98 03/02/20 04:00 Mechanical Ventilator 03/02/20 04:00 27 Mechanical Ventilator 100 03/02/20 04:00 123/66 03/02/20 04:00 100 03/02/20 04:00 103 03/02/20 03:30 102 38 121/60 (80) 98 03/02/20 03:05 102 38 100 03/02/20 03:00 37 Mechanical Ventilator 100 03/02/20 03:00 124/64 03/02/20 03:00 99 38 124/64 (84) 98 03/02/20 02:30 93 38 126/71 (89) 98 03/02/20 02:00 26 Mechanical Ventilator 100 03/02/20 02:00 125/53 03/02/20 02:00 82 28 96/48 (64) 98 03/02/20 01:30 89 31 120/59 (79) 99 03/02/20 01:00 91 31 126/60 (82) 98 03/02/20 01:00 33 Mechanical Ventilator 100 03/02/20 01:00 121/60 03/02/20 00:30 100 37 131/64 (86) 99 03/02/20 00:00 Mechanical Ventilator 03/02/20 00:00 100 03/02/20 00:00 98.3 93 32 106/49 (68) 97 03/02/20 00:00 93 03/02/20 00:00 22 Mechanical Ventilator 100 03/02/20 00:00 105/54 03/01/20 23:30 86 31 124/60 (81) 100 03/01/20 23:00 75 27 98/49 (65) 99 03/01/20 23:00 22 Mechanical Ventilator 100 03/01/20 23:00 20 Mechanical Ventilator 03/01/20 23:00 98/49 03/01/20 22:50 86 35 100 03/01/20 22:30 88 31 120/63 (82) 100 03/01/20 22:00 22 Mechanical Ventilator 03/01/20 22:00 117/61 03/01/20 22:00 90 32 126/64 (84) 99 03/01/20 21:30 90 30 120/64 (82) 100 5/5/20 21:00 20 Mechanical Ventilator 100 20 21:00 96/50 520 21:00 85 30 118/62 (80) 98 20 20:42 18 Mechanical Ventilator 03/01/20 20:30 96 27 119/65 (83) 99 20 20:00 100 5/20 20:00 95 20 20:00 Mechanical Ventilator 03/01/20 20:00 96 31 119/60 (79) 99 03/01/20 20:00 16 Mechanical Ventilator 100 20 20:00 120/61 03/01/20 19:45 18 Mechanical Ventilator 100 03/01/20 19:05 94 31 100 03/01/20 19:00 16 Mechanical Ventilator 100 03/01/20 19:00 115/56 03/01/20 19:00 97 32 120/58 (78) 99 20 18:30 96 32 106/61 (76) 97 03/01/20 18:06 111 79/43 03/01/20 18:06 79/43 03/01/20 18:00 79/42 03/01/20 18:00 96 32 79/42 (54) 97 20 17:30 105 34 110/54 (72) 96 03/01/20 17:00 105 34 107/55 (72) 96 03/01/20 17:00 107/55 03/01/20 16:30 108 33 108/53 (71) 95 03/01/20 16:00 100 03/01/20 16:00 112/56 03/01/20 16:00 104 03/01/20 16:00 112 37 112/56 (74) 95 03/01/20 16:00 Mechanical Ventilator 03/01/20 15:30 115 38 118/59 (78) 94 03/01/20 15:27 106 34 100 03/01/20 15:00 122 38 115/55 (75) 91 03/01/20 15:00 113 35 115/55 (75) 94 03/01/20 15:00 115/55 03/01/20 14:55 99.0 03/01/20 14:30 120 37 125/67 (86) 96 03/01/20 14:00 106/57 03/01/20 14:00 123 37 106/56 (73) 93 03/01/20 13:30 124 36 110/56 (74) 93 03/01/20 13:00 122 37 119/54 (75) 88 03/01/20 13:00 119/54 03/01/20 12:30 120 37 120/59 (79) 96 03/01/20 12:00 120 03/01/20 12:00 108/60 03/01/20 12:00 100 03/01/20 12:00 116 36 108/60 (76) 96 03/01/20 12:00 Mechanical Ventilator 03/01/20 11:30 114 37 112/58 (76) 96 03/01/20 11:15 111 38 100 03/01/20 11:00 112 36 111/55 (73) 97 03/01/20 11:00 111/55 Intake and Output 03/01/20 03/02/20 19:00 07:00 Intake Total 1288.750 ml 1348.416 ml Output Total 850 ml 980 ml Balance 438.750 ml 368.416 ml Free Water 180 ml 100 ml IV Total 988.750 ml 1138.416 ml Tube Feeding 120 ml 110 ml Output Urine Total 600 ml 380 ml Chest Tube Drainage Total 250 ml 600 ml Laboratory Tests 03/02/20 05:44: Vitamin D 25-Hydroxy [Pending], 25-Hydroxy Vitamin D2 [Pending], 25-Hydroxy Vitamin D3 [Pending] Height (Feet): 5 Height (Inches): 5.00 Weight (Pounds): 120 Objective General Appearance: other - intubated Lines, tubes and drains: peripheral HEENT: normocephalic, atraumatic, other - dry mucous membranes Neck: non-tender, normal alignment Respiratory/Chest: rhonchi - bilaterally Cardiovascular/Chest: normal peripheral pulses, normal rate Abdomen: soft, hypoactive bowel sounds Extremities: normal range of motion, no calf tenderness, non-pitting, no edema Skin Exam: normal pigmentation, warm/dry Dwayne Salas M.D. March 02, 2020 10:55
[2020-03-02 11:33] LABS: ANION GAP 5 mmol/L (5-15); BLOOD UREA NITROGEN 29 mg/dL (7-18); CALCIUM 7.2 MG/DL (8.5-10.1); CARBON DIOXIDE 29 MMOL/L (21-32); CHLORIDE 96 MMOL/L (98-107); CREATININE 0.9 MG/DL (0.55-1.30); PHOSPHORUS 2.6 MG/DL (2.5-4.9); POTASSIUM 4.6 MMOL/L (3.5-5.1); SODIUM 130 MMOL/L (136-145)
--- NOTE | 2020-03-02 11:36 | Pulmonology Progress Note ---
Assessment/Plan Assessment/Plan IMPRESSION: 1. Respiratory failure. 2. Bilateral pneumonia. + COVID 19 3. Pulmonary edema. 4. Diabetes mellitus. 5. Left PTX with subcut emphysema; s/p chest tube DISCUSSION: Positive COVID 19 pcr The patient is critically ill at this point in time. Poor prognosis Increasing pressor requirements Noted Cardiology consultation. Continue broad-spectrum antibiotics. Continue respiratory support; will adjust vent settings I will follow carefully. S/p chest tube Continue Ac mode 100 FiO2 and PEEP 5 SaO2 97% Andrea Bland M.D. Subjective ROS Limited/Unobtainable: Yes Interval Events: Remains intubtaed; was intubated on 02/22/20 Constitutional: Reports: other - + vent, + pressors ; Denies: fever HEENT: Repors: no symptoms Respiratory: Reports: no symptoms Cardiovascular: Reports: no symptoms Gastrointestinal/Abdominal: Denies: nausea, vomiting, diarrhea Genitourinary: Reports: no symptoms Psychiatric: Denies: depression Skin: Denies: rash Endocrine: Reports: no symptoms Musculoskeletal: Denies: pain Allergies: Coded Allergies: No Known Allergies (Unverified , 01/19/19) All Systems: reviewed and negative except above Subjective seen and evaluated Discussed with RN Left chest tube placed by surgery Objective Last 24 Hour Vital Signs Date Time Temp Pulse Resp B/P (MAP) Pulse Ox O2 Delivery O2 Flow Rate FiO2 03/02/20 10:00 35 Mechanical Ventilator 100 03/02/20 10:00 111/60 03/02/20 10:00 105 37 118/64 (82) 100 03/02/20 09:30 104 36 115/65 (82) 100 03/02/20 09:00 105 36 108/63 (78) 100 03/02/20 09:00 36 Mechanical Ventilator 100 03/02/20 09:00 114/68 03/02/20 08:30 112 37 97/51 (66) 100 03/02/20 08:00 100 03/02/20 08:00 99.0 106 38 117/66 (83) 95 03/02/20 08:00 37 Mechanical Ventilator 100 03/02/20 08:00 112/60 03/02/20 08:00 Mechanical Ventilator 03/02/20 07:30 105 36 113/65 (81) 88 03/02/20 07:29 119/67 03/02/20 07:28 113/65 03/02/20 07:22 112 37 100 03/02/20 07:00 20 Mechanical Ventilator 100 03/02/20 07:00 119/67 03/02/20 07:00 106 38 113/65 (81) 93 03/02/20 06:29 109 23 03/02/20 06:00 105 37 113/64 (80) 86 03/02/20 06:00 26 Mechanical Ventilator 100 03/02/20 06:00 111/63 03/02/20 05:58 24 Mechanical Ventilator 100 03/02/20 05:58 117/59 03/02/20 05:30 109 28 123/65 (84) 98 03/02/20 05:00 26 Mechanical Ventilator 03/02/20 05:00 117/63 03/02/20 05:00 109 32 128/69 (88) 92 03/02/20 04:30 108 40 135/69 (91) 94 03/02/20 04:00 99.0 105 38 124/70 (88) 98 03/02/20 04:00 Mechanical Ventilator 03/02/20 04:00 27 Mechanical Ventilator 100 03/02/20 04:00 123/66 03/02/20 04:00 100 03/02/20 04:00 103 03/02/20 03:30 102 38 121/60 (80) 98 03/02/20 03:05 102 38 100 03/02/20 03:00 37 Mechanical Ventilator 100 03/02/20 03:00 124/64 03/02/20 03:00 99 38 124/64 (84) 98 03/02/20 02:30 93 38 126/71 (89) 98 03/02/20 02:00 26 Mechanical Ventilator 100 03/02/20 02:00 125/53 03/02/20 02:00 82 28 96/48 (64) 98 03/02/20 01:30 89 31 120/59 (79) 99 03/02/20 01:00 91 31 126/60 (82) 98 03/02/20 01:00 33 Mechanical Ventilator 100 03/02/20 01:00 121/60 5/6/20 00:30 100 37 131/64 (86) 99 20 00:00 Mechanical Ventilator 03/02/20 00:00 100 03/02/20 00:00 98.3 93 32 106/49 (68) 97 20 00:00 93 03/02/20 00:00 22 Mechanical Ventilator 100 03/02/20 00:00 105/54 03/01/20 23:30 86 31 124/60 (81) 100 03/01/20 23:00 75 27 98/49 (65) 99 03/01/20 23:00 22 Mechanical Ventilator 100 03/01/20 23:00 20 Mechanical Ventilator 03/01/20 23:00 98/49 03/01/20 22:50 86 35 100 03/01/20 22:30 88 31 120/63 (82) 100 03/01/20 22:00 22 Mechanical Ventilator 03/01/20 22:00 117/61 03/01/20 22:00 90 32 126/64 (84) 99 03/01/20 21:30 90 30 120/64 (82) 100 03/01/20 21:00 20 Mechanical Ventilator 100 03/01/20 21:00 96/50 03/01/20 21:00 85 30 118/62 (80) 98 03/01/20 20:42 18 Mechanical Ventilator 03/01/20 20:30 96 27 119/65 (83) 99 20 20:00 100 20 20:00 95 20 20:00 Mechanical Ventilator 03/01/20 20:00 96 31 119/60 (79) 99 20 20:00 16 Mechanical Ventilator 100 20 20:00 120/61 03/01/20 19:45 18 Mechanical Ventilator 100 03/01/20 19:05 94 31 100 20 19:00 16 Mechanical Ventilator 100 03/01/20 19:00 115/56 20 19:00 97 32 120/58 (78) 99 20 18:30 96 32 106/61 (76) 97 20 18:06 111 79/43 520 18:06 79/43 20 18:00 79/42 5/5/20 18:00 96 32 79/42 (54) 97 03/01/20 17:30 105 34 110/54 (72) 96 03/01/20 17:00 105 34 107/55 (72) 96 03/01/20 17:00 107/55 03/01/20 16:30 108 33 108/53 (71) 95 03/01/20 16:00 100 03/01/20 16:00 112/56 03/01/20 16:00 104 03/01/20 16:00 112 37 112/56 (74) 95 03/01/20 16:00 Mechanical Ventilator 03/01/20 15:30 115 38 118/59 (78) 94 03/01/20 15:27 106 34 100 03/01/20 15:00 122 38 115/55 (75) 91 03/01/20 15:00 113 35 115/55 (75) 94 03/01/20 15:00 115/55 03/01/20 14:55 99.0 03/01/20 14:30 120 37 125/67 (86) 96 03/01/20 14:00 106/57 03/01/20 14:00 123 37 106/56 (73) 93 03/01/20 13:30 124 36 110/56 (74) 93 03/01/20 13:00 122 37 119/54 (75) 88 03/01/20 13:00 119/54 03/01/20 12:30 120 37 120/59 (79) 96 03/01/20 12:00 120 03/01/20 12:00 108/60 03/01/20 12:00 100 03/01/20 12:00 116 36 108/60 (76) 96 03/01/20 12:00 Mechanical Ventilator Intake and Output 03/01/20 03/02/20 19:00 07:00 Intake Total 1288.750 ml 1499.208 ml Output Total 850 ml 980 ml Balance 438.750 ml 519.208 ml Free Water 180 ml 100 ml IV Total 988.750 ml 1289.208 ml Tube Feeding 120 ml 110 ml Output Urine Total 600 ml 380 ml Chest Tube Drainage Total 250 ml 600 ml General Appearance: other - on vent HEENT: other Respiratory/Chest: chest wall non-tender, decreased breath sounds, other - hAS SUB CUT EMPHYSEMA LEWFT SIDE Cardiovascular: normal peripheral pulses Abdomen: normal bowel sounds, soft, non tender, no organomegaly, non distended Genitourinary: other - + rush - urine slt cloudy Extremities: no cyanosis Skin: no rash Neurologic/Psychiatric: unresponsiveness Lymphatic: no neck adenopathy Musculoskeletal: no effusion Laboratory Tests 03/02/20 05:44: Sodium Level 130L, Potassium Level 4.6, Chloride Level 96L, Carbon Dioxide Level 29, Anion Gap 5, Blood Urea Nitrogen 29H, Creatinine 0.9, Estimat Glomerular Filtration Rate > 60, Glucose Level 142H, Calcium Level 7.2L, Phosphorus Level 2.6, Magnesium Level 2.0, Vitamin D 25-Hydroxy [Pending], 25- Hydroxy Vitamin D2 [Pending], 25-Hydroxy Vitamin D3 [Pending] Current Medications Medications (Trade) Dose Ordered Sig/Cirilo Route PRN Reason Start Time Stop Time Status Last Admin Dose Admin Acetaminophen (Tylenol) 650 mg Q4H PRN ORAL Fever 02/22/20 14:15 03/23/20 14:14 02/28/20 17:52 Acetaminophen (Tylenol) 650 mg Q4H PRN ORAL Mild Pain (Pain Scale 1-3) 02/22/20 14:15 03/23/20 14:14 03/01/20 14:25 Acetaminophen (Tylenol) 650 mg Q4H PRN RECTAL Mild Pain (Pain Scale 1-3) 02/22/20 14:15 03/23/20 14:14 02/22/20 21:28 Acetaminophen (Tylenol) 650 mg Q4H PRN RECTAL FEVER 02/22/20 14:15 03/23/20 14:14 Chlorhexidine Gluconate (Maira-Hex 2%) 1 applic DAILY@1999 TOPIC 02/23/20 20:00 05/23/20 19:59 03/01/20 20:42 Dextrose (Dextrose 50%) 25 ml Q30M PRN IV Hypoglycemia 02/23/20 09:00 05/23/20 08:59 Dextrose (Dextrose 50%) 50 ml Q30M PRN IV Hypoglycemia 02/23/20 09:00 05/23/20 08:59 Diphenhydramine HCl (Benadryl) 25 mg Q6H PRN ORAL Itching/Pruritis 02/22/20 14:15 03/23/20 14:14 02/26/20 01:34 Doxycycline Monohydrate (Doxycycline Monohydrate) 100 mg EVERY 12 HOURS ORAL 03/01/20 09:00 03/08/20 08:59 03/02/20 08:54 Fentanyl Citrate 2500 mcg/Sodium Chloride 250 ml @ 0 mls/hr Q24H IV 03/01/20 19:45 03/08/20 19:44 03/02/20 04:00 Insulin Aspart (NovoLOG) Q6HR SUBQ 02/28/20 18:00 05/28/20 17:59 03/01/20 13:22 Lorazepam (Ativan 2mg/ml 1ml) 1 mg Q6H PRN IV For Anxiety 02/26/20 08:30 03/04/20 08:29 02/29/20 04:46 Metoclopramide HCl (Reglan) 5 mg Q6HR IVP 03/01/20 12:00 03/31/20 11:59 03/02/20 05:31 Midazolam HCl 100 ml @ 0 mls/hr Q24H IV 02/26/20 15:06 05/26/20 15:05 02/26/20 15:48 Norepinephrine Bitartrate 8 mg/ Dextrose 500 ml @ 0 mls/hr Q24H IV 02/23/20 19:01 03/24/20 19:00 03/02/20 07:29 Pantoprazole (Protonix) 40 mg DAILY IVP 02/23/20 09:30 03/24/20 09:29 03/02/20 08:54 Phenylephrine HCl 50 mg/Dextrose 250 ml @ 6 mls/hr Q24H IV 02/29/20 10:45 03/30/20 10:44 03/01/20 18:06 Piperacillin Sod/ Tazobactam Sod 3.375 gm/Dextrose 110 ml @ 27.5 mls/hr Q8H IVPB 03/01/20 01:00 03/08/20 00:59 03/02/20 08:54 Vancomycin HCl (Vanco rx to dose) 1 ea DAILY PRN MISC Per rx protocol 02/22/20 14:30 03/23/20 14:29 Vancomycin HCl 1 gm/Dextrose 275 ml @ 183.708 mls/hr Q8H IVPB 02/28/20 21:00 03/04/20 20:59 03/02/20 05:00 Andrea Bland MD March 02, 2020 11:36
[2020-03-02] MEDS: Phenylephrine 50 MG in D5W 245 ML IV SCH (12:14)
--- NOTE | 2020-03-02 14:01 | Cardiac Electrophysiology PN ---
Assessment/Plan Assessment/Plan 1. Respiratory failure due to COVID pneumonia Cannot rule out underlying CHF as BNP is more than 2000. Echo EF 50%. His white count however is only 7.2 with lymphopenia On the Vent 100% Fio2, PEEP 5 2. Septic shock likely due to pneumonia and dehydration. On Levo and Fredrick and Abx. 3. CXR, Since 02/26/2020, interim development of small bilateral pneumothoraces, right greater than left, and extensive subcutaneous emphysema. There may also be minimal pneumomediastinum. S/P Left chest tube today 4. Hypernatremia, resolved with IV fluids. 5. Dehydration. Subjective Subjective In ICU on Levo 6 and Fredrick 40 on the vent with Fio2 100% in ICU. EF 50%. Covid PCR is positive. CXR showed Since 02/26/2020, interim development of small bilateral pneumothoraces , right greater than left, and extensive subcutaneous emphysema. There may also be minimal pneumomediastinum.S/P Left chest tube placement Objective Last 24 Hour Vital Signs Date Time Temp Pulse Resp B/P (MAP) Pulse Ox O2 Delivery O2 Flow Rate FiO2 03/02/20 12:14 104 125/66 03/02/20 12:00 105 03/02/20 11:27 111 37 100 03/02/20 10:00 35 Mechanical Ventilator 100 03/02/20 10:00 111/60 03/02/20 10:00 105 37 118/64 (82) 100 03/02/20 09:30 104 36 115/65 (82) 100 03/02/20 09:00 105 36 108/63 (78) 100 03/02/20 09:00 36 Mechanical Ventilator 100 03/02/20 09:00 114/68 03/02/20 08:30 112 37 97/51 (66) 100 03/02/20 08:00 100 03/02/20 08:00 99.0 106 38 117/66 (83) 95 03/02/20 08:00 106 03/02/20 08:00 37 Mechanical Ventilator 100 03/02/20 08:00 112/60 03/02/20 08:00 Mechanical Ventilator 03/02/20 07:30 105 36 113/65 (81) 88 03/02/20 07:29 119/67 03/02/20 07:28 113/65 03/02/20 07:22 112 37 100 5/6/20 07:00 20 Mechanical Ventilator 100 03/02/20 07:00 119/67 03/02/20 07:00 106 38 113/65 (81) 93 03/02/20 06:29 109 23 03/02/20 06:00 105 37 113/64 (80) 86 03/02/20 06:00 26 Mechanical Ventilator 100 03/02/20 06:00 111/63 03/02/20 05:58 24 Mechanical Ventilator 100 03/02/20 05:58 117/59 03/02/20 05:30 109 28 123/65 (84) 98 03/02/20 05:00 26 Mechanical Ventilator 03/02/20 05:00 117/63 03/02/20 05:00 109 32 128/69 (88) 92 03/02/20 04:30 108 40 135/69 (91) 94 03/02/20 04:00 99.0 105 38 124/70 (88) 98 03/02/20 04:00 Mechanical Ventilator 03/02/20 04:00 27 Mechanical Ventilator 100 03/02/20 04:00 123/66 03/02/20 04:00 100 03/02/20 04:00 103 03/02/20 03:30 102 38 121/60 (80) 98 03/02/20 03:05 102 38 100 03/02/20 03:00 37 Mechanical Ventilator 100 03/02/20 03:00 124/64 03/02/20 03:00 99 38 124/64 (84) 98 03/02/20 02:30 93 38 126/71 (89) 98 03/02/20 02:00 26 Mechanical Ventilator 100 03/02/20 02:00 125/53 03/02/20 02:00 82 28 96/48 (64) 98 03/02/20 01:30 89 31 120/59 (79) 99 03/02/20 01:00 91 31 126/60 (82) 98 03/02/20 01:00 33 Mechanical Ventilator 100 03/02/20 01:00 121/60 03/02/20 00:30 100 37 131/64 (86) 99 03/02/20 00:00 Mechanical Ventilator 03/02/20 00:00 100 03/02/20 00:00 98.3 93 32 106/49 (68) 97 5/6/20 00:00 93 5/6/20 00:00 22 Mechanical Ventilator 100 5/6/20 00:00 105/54 5/5/20 23:30 86 31 124/60 (81) 100 5/5/20 23:00 75 27 98/49 (65) 99 5/5/20 23:00 22 Mechanical Ventilator 100 5/5/20 23:00 20 Mechanical Ventilator 5/5/20 23:00 98/49 5/5/20 22:50 86 35 100 5/5/20 22:30 88 31 120/63 (82) 100 5/5/20 22:00 22 Mechanical Ventilator 55/20 22:00 117/61 5/5/20 22:00 90 32 126/64 (84) 99 5/5/20 21:30 90 30 120/64 (82) 100 5/5/20 21:00 20 Mechanical Ventilator 100 55/20 21:00 96/50 55/20 21:00 85 30 118/62 (80) 98 5/20 20:42 18 Mechanical Ventilator 20 20:30 96 27 119/65 (83) 99 5/5/20 20:00 100 5/5/20 20:00 95 5/5/20 20:00 Mechanical Ventilator 5/20 20:00 96 31 119/60 (79) 99 5/5/20 20:00 16 Mechanical Ventilator 100 55/20 20:00 120/61 55/20 19:45 18 Mechanical Ventilator 100 5/20 19:05 94 31 100 5/5/20 19:00 16 Mechanical Ventilator 100 55/20 19:00 115/56 5/5/20 19:00 97 32 120/58 (78) 99 5/5/20 18:30 96 32 106/61 (76) 97 5/5/20 18:06 111 79/43 5/5/20 18:06 79/43 5/5/20 18:00 79/42 5/5/20 18:00 96 32 79/42 (54) 97 5/5/20 17:30 105 34 110/54 (72) 96 5/5/20 17:00 105 34 107/55 (72) 96 5/5/20 17:00 107/55 5/5/20 16:30 108 33 108/53 (71) 95 03/01/20 16:00 100 03/01/20 16:00 112/56 03/01/20 16:00 104 03/01/20 16:00 112 37 112/56 (74) 95 03/01/20 16:00 Mechanical Ventilator 03/01/20 15:30 115 38 118/59 (78) 94 03/01/20 15:27 106 34 100 03/01/20 15:00 122 38 115/55 (75) 91 03/01/20 15:00 113 35 115/55 (75) 94 03/01/20 15:00 115/55 03/01/20 14:55 99.0 03/01/20 14:30 120 37 125/67 (86) 96 03/01/20 14:00 106/57 03/01/20 14:00 123 37 106/56 (73) 93 Intake and Output 03/01/20 03/02/20 19:00 07:00 Intake Total 1288.750 ml 1499.208 ml Output Total 850 ml 980 ml Balance 438.750 ml 519.208 ml Free Water 180 ml 100 ml IV Total 988.750 ml 1289.208 ml Tube Feeding 120 ml 110 ml Output Urine Total 600 ml 380 ml Chest Tube Drainage Total 250 ml 600 ml Laboratory Tests Test 03/02/20 05:44 Sodium Level 130 MMOL/L (136-145) L Potassium Level 4.6 MMOL/L (3.5-5.1) Chloride Level 96 MMOL/L (98-107) L Carbon Dioxide Level 29 MMOL/L (21-32) Anion Gap 5 mmol/L (5-15) Blood Urea Nitrogen 29 mg/dL (7-18) H Creatinine 0.9 MG/DL (0.55-1.30) Estimat Glomerular Filtration Rate > 60 mL/min (>60) Glucose Level 142 MG/DL (74-106) H Calcium Level 7.2 MG/DL (8.5-10.1) L Phosphorus Level 2.6 MG/DL (2.5-4.9) Magnesium Level 2.0 MG/DL (1.8-2.4) Vitamin D 25-Hydroxy Pending 25-Hydroxy Vitamin D2 Pending 25-Hydroxy Vitamin D3 Pending Objective HEAD AND NECK: No JVD orally intubated. LUNGS: Decreased breath sounds and coarse rhonchi. SQ emphesyma Left chest tube is in CARDIOVASCULAR: Regular S1 and S2 with no gallop. ABDOMEN: Soft. EXTREMITIES: No pitting edema. Deric Garcia MD March 02, 2020 14:01
--- NOTE | 2020-03-02 14:42 | Diagnostic Imaging Report ---
Indication: Post chest tube placement Technique: One view of the chest Comparison: 9 hours earlier Findings: Interim placement of a left chest tube, tip projecting in the upper medial left hemithorax. Small left apical pneumothorax is again demonstrated. Small right apical pneumothorax is again demonstrated. Again demonstrated is extensive subcutaneous emphysema. This has progressed, with more emphysema now demonstrated in the right chest wall and right supraclavicular region. Bilateral infiltrates are unchanged. Nasogastric and endotracheal tubes remain. Impression: Apparent satisfactory placement of a left chest tube Unchanged small apical pneumothoraces bilaterally Increasing subcutaneous emphysema Other stable findings as described
--- NOTE | 2020-03-02 19:10 | Infectious Diseases Prog Note ---
Assessment/Plan Assessment/Plan ASSESSMENT AND PLAN: 1. covid-19 virus infection/pna +, rule out bacterial pna, sepsis, shock, leukocytosis, fevers, vent, pressors, mrsa colonization bc - one bottle - diphtheroids - likely contaminant pneumothorax/subcutaneous emphysema - chest tube - zosyn, doxycycline, vancomycin -day # 9 - s/p hydroxychloroquine - f/u labs and chest x-ray - condition - critical - icu care 2. Respiratory failure, on vent. 3. ICU care. 4. Pressors. 5. Low potassium or hypokalemia. 6. Diabetes. 7. Hypertension. 8. Alzheimer's. 9. CVA. 10. TIA. 11. DVT. 12. Dementia. 13. Aspiration risk. 14. No known drug allergies. 15. Social history negative. 16. Family history is noncontributory. 17. MAR was noted. 18. Case discussed with RN. 19. Poor prognosis. 20. Skin care protocol. 21. Case discussed with Dr. Nunez. Subjective Constitutional: Reports: other - on vent, pressors, + chest tube ; Denies: fever HEENT: Reports: congestion Respiratory: Reports: shortness of breath Cardiovascular: Reports: other - + pressor Gastrointestinal/Abdominal: Denies: nausea, vomiting, diarrhea Genitourinary: Reports: other - + rush Neurologic: Reports: weakness Psychiatric: Reports: other - NA Skin: Denies: rash Hematologic: Denies: bleeding Musculoskeletal: Reports: other - NA Allergies: Coded Allergies: No Known Allergies (Unverified , 01/19/19) Objective Vital Signs Last 24 Hour Vital Signs Date Time Temp Pulse Resp B/P (MAP) Pulse Ox O2 Delivery O2 Flow Rate FiO2 03/02/20 18:30 113 34 131/73 (92) 100 03/02/20 18:00 112 34 137/66 (89) 99 03/02/20 17:30 110 33 134/67 (89) 100 03/02/20 17:00 96 34 128/68 (88) 100 03/02/20 16:30 94 34 125/70 (88) 100 03/02/20 16:00 100 03/02/20 16:00 Mechanical Ventilator 03/02/20 16:00 92 03/02/20 16:00 92 33 127/70 (89) 100 5/6/20 15:30 80 27 100 03/02/20 15:30 90 31 104/65 (78) 100 03/02/20 15:00 87 29 122/69 (86) 100 03/02/20 14:30 80 28 92/45 (61) 100 03/02/20 14:00 88 30 117/61 (79) 100 03/02/20 13:30 85 27 89/47 (61) 100 03/02/20 13:00 96 32 86/48 (61) 100 03/02/20 13:00 32 Mechanical Ventilator 100 03/02/20 13:00 86/48 03/02/20 12:30 107 34 78/66 (70) 100 03/02/20 12:14 104 125/66 03/02/20 12:00 104 32 128/66 (86) 100 03/02/20 12:00 105 03/02/20 12:00 Mechanical Ventilator 03/02/20 12:00 35 Mechanical Ventilator 100 03/02/20 12:00 128/66 03/02/20 12:00 100 03/02/20 11:30 105 36 113/62 (79) 100 03/02/20 11:27 111 37 100 03/02/20 11:00 105 36 114/46 (68) 100 03/02/20 11:00 35 Mechanical Ventilator 100 03/02/20 11:00 116/64 03/02/20 10:30 104 36 114/68 (83) 100 03/02/20 10:00 35 Mechanical Ventilator 100 03/02/20 10:00 111/60 03/02/20 10:00 105 37 118/64 (82) 100 03/02/20 09:30 104 36 115/65 (82) 100 03/02/20 09:00 105 36 108/63 (78) 100 03/02/20 09:00 36 Mechanical Ventilator 100 03/02/20 09:00 114/68 03/02/20 08:30 112 37 97/51 (66) 100 03/02/20 08:00 100 03/02/20 08:00 99.0 106 38 117/66 (83) 95 03/02/20 08:00 106 03/02/20 08:00 37 Mechanical Ventilator 100 03/02/20 08:00 112/60 03/02/20 08:00 Mechanical Ventilator 03/02/20 07:30 105 36 113/65 (81) 88 03/02/20 07:29 119/67 03/02/20 07:28 113/65 03/02/20 07:22 112 37 100 03/02/20 07:00 20 Mechanical Ventilator 100 03/02/20 07:00 119/67 03/02/20 07:00 106 38 113/65 (81) 93 03/02/20 06:29 109 23 03/02/20 06:00 105 37 113/64 (80) 86 03/02/20 06:00 26 Mechanical Ventilator 100 03/02/20 06:00 111/63 03/02/20 05:58 24 Mechanical Ventilator 100 03/02/20 05:58 117/59 03/02/20 05:30 109 28 123/65 (84) 98 03/02/20 05:00 26 Mechanical Ventilator 03/02/20 05:00 117/63 03/02/20 05:00 109 32 128/69 (88) 92 03/02/20 04:30 108 40 135/69 (91) 94 03/02/20 04:00 99.0 105 38 124/70 (88) 98 03/02/20 04:00 Mechanical Ventilator 03/02/20 04:00 27 Mechanical Ventilator 100 03/02/20 04:00 123/66 03/02/20 04:00 100 03/02/20 04:00 103 03/02/20 03:30 102 38 121/60 (80) 98 03/02/20 03:05 102 38 100 03/02/20 03:00 37 Mechanical Ventilator 100 03/02/20 03:00 124/64 03/02/20 03:00 99 38 124/64 (84) 98 03/02/20 02:30 93 38 126/71 (89) 98 03/02/20 02:00 26 Mechanical Ventilator 100 03/02/20 02:00 125/53 03/02/20 02:00 82 28 96/48 (64) 98 03/02/20 01:30 89 31 120/59 (79) 99 03/02/20 01:00 91 31 126/60 (82) 98 03/02/20 01:00 33 Mechanical Ventilator 100 03/02/20 01:00 121/60 03/02/20 00:30 100 37 131/64 (86) 99 03/02/20 00:00 Mechanical Ventilator 03/02/20 00:00 100 03/02/20 00:00 98.3 93 32 106/49 (68) 97 03/02/20 00:00 93 03/02/20 00:00 22 Mechanical Ventilator 100 03/02/20 00:00 105/54 03/01/20 23:30 86 31 124/60 (81) 100 03/01/20 23:00 75 27 98/49 (65) 99 03/01/20 23:00 22 Mechanical Ventilator 100 03/01/20 23:00 20 Mechanical Ventilator 03/01/20 23:00 98/49 03/01/20 22:50 86 35 100 03/01/20 22:30 88 31 120/63 (82) 100 03/01/20 22:00 22 Mechanical Ventilator 03/01/20 22:00 117/61 03/01/20 22:00 90 32 126/64 (84) 99 03/01/20 21:30 90 30 120/64 (82) 100 03/01/20 21:00 20 Mechanical Ventilator 100 03/01/20 21:00 96/50 03/01/20 21:00 85 30 118/62 (80) 98 03/01/20 20:42 18 Mechanical Ventilator 03/01/20 20:30 96 27 119/65 (83) 99 03/01/20 20:00 100 03/01/20 20:00 95 03/01/20 20:00 Mechanical Ventilator 03/01/20 20:00 96 31 119/60 (79) 99 03/01/20 20:00 16 Mechanical Ventilator 100 03/01/20 20:00 120/61 03/01/20 19:45 18 Mechanical Ventilator 100 03/01/20 19:05 94 31 100 Height (Feet): 5 Height (Inches): 5.00 Weight (Pounds): 120 General Appearance: no acute distress HEENT: normocephalic, atraumatic, anicteric, no JVD, other - oral - intubated Respiratory/Chest: crackles/rales, rhonchi - bilaterally Cardiovascular: normal rate, regular rhythm, no gallop/murmur, no JVD Abdomen: normal bowel sounds, soft, non tender, no organomegaly Genitourinary: other - + rush - urine slt cloudy Extremities: no cyanosis Skin: no rash Neurologic/Psychiatric: other - lethargic, weak Lymphatic: no neck adenopathy Musculoskeletal: no effusion Objective Chest x-ray - 02/23/30 - Procedure: XRAY Chest 1v Indication: Respiratory failure shortness of breath Technique: XRAY Chest 1v Comparison: 02/22/2020 Findings: Heart borders are obscured. Interstitial and extensive predominantly perihilar airspace opacities are noted. There is slight decrease in opacification in the right midlung but there is worsening of disease in the left lung. Is been development of a small layering left pleural effusion. Endotracheal tube tip approximately 1.2 cm above the holly. Enteric tube tip in the distal stomach. Osseous structures are stable. There are atherosclerotic calcifications. IMPRESSION: Overall worsening of aeration with increasing airspace disease in the left lung and development of a small layering left pleural effusion. Persistent patchy perihilar opacities in the right lung. Endotracheal and enteric tubes remain in place. Tip of the ET tube approximately 1.2 cm above the holly. Consider slight retraction (1-2 cms). Chest x-ray - 02/26/20 - Procedure: XRAY Chest 1v Indication: Reason For Exam: ABN CHST Technique: One view of the chest Comparison: 02/24/2020 Findings: Endotracheal tube demonstrates slightly improved position, now roughly 3 cm above the holly. There is increased atelectasis at the right lung base. Consolidation at the right lung base appears unchanged, but there does appear to be decreased involvement of the upper lobe. There is still extensive consolidation at the left lung base, but aeration appears equivocally slightly improved, and there is less upper lobe involvement. Orogastric tube again demonstrated. Impression: Overall slightly improved bilateral infiltrates, over 2 days Improved endotracheal tube position Chest x-ray - 03/02/20 - Procedure: XRAY Chest 1v Indication: Shortness of breath Technique: One view of the chest Comparison: 03/01/2020 Findings: Left chest tube again demonstrated. No definite pneumothorax although overlying emphysema makes evaluation difficult. Previously demonstrated small right apical pneumothorax is not clearly evident on this exam. Stable satisfactory positions of endotracheal tube, orogastric tube, right jugular central venous catheter. Extensive bilateral subcutaneous emphysema is unchanged. Extensive bilateral right greater than left infiltrates are unchanged. Impression: Previously demonstrated small bilateral apical pneumothoraces are no longer evident. 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 Complete Labs Test 02/28/20 21:30 02/29/20 05:10 02/29/20 11:50 03/01/20 05:55 Vancomycin Level Trough 19.6 ug/mL (5.0-12.0) White Blood Count 3.4 K/UL (4.8-10.8) 7.4 K/UL (4.8-10.8) Red Blood Count 3.33 M/UL (4.70-6.10) 3.12 M/UL (4.70-6.10) Hemoglobin 10.0 G/DL (14.2-18.0) 9.4 G/DL (14.2-18.0) Hematocrit 29.8 % (42.0-52.0) 27.5 % (42.0-52.0) Mean Corpuscular Volume 89 FL (80-99) 88 FL (80-99) Mean Corpuscular Hemoglobin 29.9 PG (27.0-31.0) 30.3 PG (27.0-31.0) Mean Corpuscular Hemoglobin Concent 33.5 G/DL (32.0-36.0) 34.4 G/DL (32.0-36.0) Red Cell Distribution Width 14.3 % (11.6-14.8) 14.5 % (11.6-14.8) Platelet Count 15 K/UL (150-450) 20 K/UL (150-450) Mean Platelet Volume 12.7 FL (6.5-10.1) 11.0 FL (6.5-10.1) Neutrophils (%) (Auto) % (45.0-75.0) % (45.0-75.0) Lymphocytes (%) (Auto) % (20.0-45.0) % (20.0-45.0) Monocytes (%) (Auto) % (1.0-10.0) % (1.0-10.0) Eosinophils (%) (Auto) % (0.0-3.0) % (0.0-3.0) Basophils (%) (Auto) % (0.0-2.0) % (0.0-2.0) Differential Total Cells Counted 100 100 Neutrophils % (Manual) 88 % (45-75) 89 % (45-75) Lymphocytes % (Manual) 7 % (20-45) 5 % (20-45) Monocytes % (Manual) 3 % (1-10) 4 % (1-10) Eosinophils % (Manual) 1 % (0-3) 1 % (0-3) Basophils % (Manual) 1 % (0-2) 0 % (0-2) Band Neutrophils 0 % (0-8) 0 % (0-8) Other Cell Type Pathologist review Platelet Estimate Decreased Decreased Platelet Morphology Normal Normal Hypochromasia 2+ 2+ Anisocytosis 1+ 1+ Sodium Level 134 MMOL/L (136-145) 131 MMOL/L (136-145) Potassium Level 3.3 MMOL/L (3.5-5.1) 4.5 MMOL/L (3.5-5.1) Chloride Level 99 MMOL/L (98-107) 97 MMOL/L (98-107) Carbon Dioxide Level 30 MMOL/L (21-32) 27 MMOL/L (21-32) Anion Gap 5 mmol/L (5-15) 7 mmol/L (5-15) Blood Urea Nitrogen 19 mg/dL (7-18) 25 mg/dL (7-18) Creatinine 0.6 MG/DL (0.55-1.30) 0.9 MG/DL (0.55-1.30) Estimat Glomerular Filtration Rate > 60 mL/min (>60) > 60 mL/min (>60) Glucose Level 189 MG/DL (74-106) 132 MG/DL (74-106) Calcium Level 7.0 MG/DL (8.5-10.1) 6.6 MG/DL (8.5-10.1) Phosphorus Level 1.4 MG/DL (2.5-4.9) Magnesium Level 1.7 MG/DL (1.8-2.4) Haptoglobin 102 mg/dL (34-355) Prothrombin Time 17.0 SEC (9.30-11.50) Prothromb Time International Ratio 1.6 (0.9-1.1) Fibrinogen 406 mg/dL (200-400) Iron Level 10 ug/dL (50-175) Total Iron Binding Capacity 73 ug/dL (250-450) Percent Iron Saturation 14 % (15-50) Unsaturated Iron Binding 63 ug/dL (112-346) Ferritin 1413 NG/ML (8-388) Metamyelocytes % 1 % (0-0) Spherocytes 1+ Total Bilirubin 11.3 MG/DL (0.2-1.0) Direct Bilirubin 10.4 MG/DL (0.0-0.3) Aspartate Amino Transf (AST/SGOT) 57 U/L (15-37) Alanine Aminotransferase (ALT/SGPT) 33 U/L (12-78) Alkaline Phosphatase 84 U/L (46-116) Total Protein 4.3 G/DL (6.4-8.2) Albumin 1.1 G/DL (3.4-5.0) Globulin 3.2 g/dL Albumin/Globulin Ratio 0.3 (1.0-2.7) Test 03/02/20 05:44 Sodium Level 130 MMOL/L (136-145) Potassium Level 4.6 MMOL/L (3.5-5.1) Chloride Level 96 MMOL/L (98-107) Carbon Dioxide Level 29 MMOL/L (21-32) Anion Gap 5 mmol/L (5-15) Blood Urea Nitrogen 29 mg/dL (7-18) Creatinine 0.9 MG/DL (0.55-1.30) Estimat Glomerular Filtration Rate > 60 mL/min (>60) Glucose Level 142 MG/DL (74-106) Calcium Level 7.2 MG/DL (8.5-10.1) Phosphorus Level 2.6 MG/DL (2.5-4.9) Magnesium Level 2.0 MG/DL (1.8-2.4) Laboratory Tests Test 03/02/20 05:44 Sodium Level 130 MMOL/L (136-145) L Potassium Level 4.6 MMOL/L (3.5-5.1) Chloride Level 96 MMOL/L (98-107) L Carbon Dioxide Level 29 MMOL/L (21-32) Anion Gap 5 mmol/L (5-15) Blood Urea Nitrogen 29 mg/dL (7-18) H Creatinine 0.9 MG/DL (0.55-1.30) Estimat Glomerular Filtration Rate > 60 mL/min (>60) Glucose Level 142 MG/DL (74-106) H Calcium Level 7.2 MG/DL (8.5-10.1) L Phosphorus Level 2.6 MG/DL (2.5-4.9) Magnesium Level 2.0 MG/DL (1.8-2.4) Vitamin D 25-Hydroxy Pending 25-Hydroxy Vitamin D2 Pending 25-Hydroxy Vitamin D3 Pending Current Medications Medications (Trade) Dose Ordered Sig/Cirilo Route PRN Reason Start Time Stop Time Status Last Admin Dose Admin Acetaminophen (Tylenol) 650 mg Q4H PRN ORAL Fever 02/22/20 14:15 03/23/20 14:14 02/28/20 17:52 Acetaminophen (Tylenol) 650 mg Q4H PRN ORAL Mild Pain (Pain Scale 1-3) 02/22/20 14:15 03/23/20 14:14 03/01/20 14:25 Acetaminophen (Tylenol) 650 mg Q4H PRN RECTAL Mild Pain (Pain Scale 1-3) 02/22/20 14:15 03/23/20 14:14 02/22/20 21:28 Acetaminophen (Tylenol) 650 mg Q4H PRN RECTAL FEVER 02/22/20 14:15 03/23/20 14:14 Chlorhexidine Gluconate (Maira-Hex 2%) 1 applic DAILY@2000 TOPIC 02/23/20 20:00 05/23/20 19:59 03/01/20 20:42 Dextrose (Dextrose 50%) 25 ml Q30M PRN IV Hypoglycemia 02/23/20 09:00 05/23/20 08:59 Dextrose (Dextrose 50%) 50 ml Q30M PRN IV Hypoglycemia 02/23/20 09:00 05/23/20 08:59 Diphenhydramine HCl (Benadryl) 25 mg Q6H PRN ORAL Itching/Pruritis 02/22/20 14:15 03/23/20 14:14 02/26/20 01:34 Doxycycline Monohydrate (Doxycycline Monohydrate) 100 mg EVERY 12 HOURS ORAL 03/01/20 09:00 03/08/20 08:59 03/02/20 08:54 Fentanyl Citrate 2500 mcg/Sodium Chloride 250 ml @ 0 mls/hr Q24H IV 03/01/20 19:45 03/08/20 19:44 03/02/20 04:00 Insulin Aspart (NovoLOG) Q6HR SUBQ 02/28/20 18:00 05/28/20 17:59 03/02/20 12:42 Lorazepam (Ativan 2mg/ml 1ml) 1 mg Q6H PRN IV For Anxiety 02/26/20 08:30 03/04/20 08:29 02/29/20 04:46 Metoclopramide HCl (Reglan) 5 mg Q6HR IVP 03/01/20 12:00 03/31/20 11:59 03/02/20 17:19 Midazolam HCl 100 ml @ 0 mls/hr Q24H IV 02/26/20 15:06 05/26/20 15:05 02/26/20 15:48 Norepinephrine Bitartrate 8 mg/ Dextrose 500 ml @ 0 mls/hr Q24H IV 02/23/20 19:01 03/24/20 19:00 03/02/20 07:29 Pantoprazole (Protonix) 40 mg DAILY IVP 02/23/20 09:30 03/24/20 09:29 03/02/20 08:54 Phenylephrine HCl 50 mg/Dextrose 250 ml @ 6 mls/hr Q24H IV 02/29/20 10:45 03/30/20 10:44 03/02/20 12:14 Piperacillin Sod/ Tazobactam Sod 3.375 gm/Dextrose 110 ml @ 27.5 mls/hr Q8H IVPB 03/01/20 01:00 03/08/20 00:59 03/02/20 17:19 Vancomycin HCl (Vanco rx to dose) 1 ea DAILY PRN MISC Per rx protocol 02/22/20 14:30 03/23/20 14:29 Vancomycin HCl 1 gm/Dextrose 275 ml @ 183.708 mls/hr Q8H IVPB 02/28/20 21:00 03/04/20 20:59 03/02/20 12:13 Anselmo Estrada MD March 02, 2020 19:10
[2020-03-02] MEDS: Dyna-Hex 2% Top Sol 2oz TOPIC SCH (21:06)
[2020-03-02] MEDS: Vancomycin 1 GM in D5W 275 ML IVPB SCH (21:06)
[2020-03-03] VITALS (52 sets, daily range): BP systolic 95–140; BP diastolic 45–73
[2020-03-03] MEDS: Piperacillin/Tazobactam 3.375 GM in D5W 110 ML IVPB SCH ×3 (00:42→17:30)
[2020-03-03] MEDS: fentaNYL Citrate 2,500 MCG in NS 200 ML IV SCH (02:31)
[2020-03-03] MEDS: Phenylephrine 50 MG in D5W 245 ML IV SCH (05:18)
[2020-03-03] MEDS: Vancomycin 1 GM in D5W 275 ML IVPB SCH ×3 (05:18→20:31)
[2020-03-03] MEDS: Metoclopramide 10mg/2ml Inj IVP SCH ×3 (05:20→17:31)
[2020-03-03] MEDS: NovoLOG Insulin Flexpen SUBQ SCH ×4 (05:33→18:00)
[2020-03-03 06:01] LABS: HEMATOCRIT 24.5 % (42.0-52.0); HEMOGLOBIN 8.6 G/DL (14.2-18.0); MEAN CORPUSCULAR VOLUME 88 FL (80-99); PLATELET COUNT 37 K/UL (150-450); RED BLOOD COUNT 2.78 M/UL (4.70-6.10); RED CELL DISTRIBUTION WIDTH 14.2 % (11.6-14.8); WHITE BLOOD COUNT 10.5 K/UL (4.8-10.8)
[2020-03-03 06:13] LABS: INR 1.5 (0.9-1.1)
[2020-03-03 06:37] LABS: ALANINE AMINOTRANSFERASE 44 U/L (12-78); ALBUMIN 1.2 G/DL (3.4-5.0); ALBUMIN/GLOBULIN RATIO 0.3 (1.0-2.7); ALKALINE PHOSPHATASE 264 U/L (46-116); ANION GAP 6 mmol/L (5-15); ASPARTATE AMINO TRANSFERASE 52 U/L (15-37); BILIRUBIN,TOTAL 10.5 MG/DL (0.2-1.0); BLOOD UREA NITROGEN 30 mg/dL (7-18); CALCIUM 7.1 MG/DL (8.5-10.1); CARBON DIOXIDE 29 MMOL/L (21-32); CHLORIDE 95 MMOL/L (98-107); CREATININE 0.9 MG/DL (0.55-1.30); POTASSIUM 4.5 MMOL/L (3.5-5.1); SODIUM 130 MMOL/L (136-145)
[2020-03-03 07:14] LABS: BILIRUBIN,DIRECT 8.8 MG/DL (0.0-0.3)
[2020-03-03] MEDS: Pantoprazole Inj IVP SCH (08:59)
[2020-03-03] MEDS: Doxycycline Monohydrate 100mg ORAL SCH ×2 (08:59→20:31)
--- NOTE | 2020-03-03 09:50 | Hematology/Onc Progress Note ---
Assessment/Plan Assessment/Plan # Severe thrombocytopenia - potential causes multifactorial, evaluate liver and viral etiologies to begin, in this particular case, given mosf, is due to [id number], has had hyperbilirubinemia, has received heparin and zosyn both culprits as well --> Hep panel and HIV ordered -- neg --> US abd to evaluate for cirrhosis and hsm ordered ->when covid is negative --> Peripheral smear ordered to evaluate for blasts /schistocytes (ALSO HAVE Ordered for DIC panel)-->DIC panel reviewed, D-dimer high, inr higher, hapto pending --> abx and other meds have been reviewed --> ok for ppx if plt >50k w/ either heparin or lovenox --> Transfuse if Plt < 20k and fever, or if Plt < 10k without fever --> off heparin now, have ordered for hit-pf4 antibody test --> plt trend 15-->20k-->37k --> HOLD LOVENOX SQ # Anemia of chronic disease due to underlying chronic medical issues, multifactorial v Gi bleed --> Anemia workup has been ordered, rule out gi bleed --> No evidence of hemolysis is noted, peripheral smear has been reviewed. --> Hgb goal >7. Transfuse prn. --> Epogen or iron at this time is not particularly indicated --> Medications have been reviewed --> low threshold for gi evaluation in case has occult + --> bone marrow biopsy is not indicated given the other more likely causes --> hgb trend 9.9-->9.7-->8.6 # Septic shock 2/2 due to covid 19 --> on abx as per id -->zosyn/doxy/vanc --> wbc remains elev # Acute Hypoxic Respiratory Failure --> now s/p vent --> in icu # HCAP COVID positive --> abx, plaq and supp care # Jaundiced with Hyperbilirubinemia --> per gi--> with ogt --> have ordered repeat bilis # Schizophrenia # Bipolar dx # Dvt ppx scds The timing of this note does not necessarily reflect the time of the patient was seen. Greatly appreciate consultation. Subjective Neurologic/Psychiatric: Denies: no symptoms, anxiety, depressed, emotional problems, headache, numbness, paresthesia, pre-existing deficit, seizure, tingling, tremors, weakness, other Endocrine: Denies: no symptoms, excessive sweating, flushing, intolerance to cold, intolerance to heat, increased hunger, increased thirst, increased urine, unexplained weight gain, unexplained weight loss, other Allergies: Coded Allergies: No Known Allergies (Unverified , 01/19/19) All Systems: reviewed and negative except above Subjective 02/28 remains on vent, og, rush, sedated in icu, on pressors, plt 15k, smear pending 03/02 icu, levo gtt, s/p ffp x2 units, on abx, labs pending 03/03 remains on vent with ogt, no bleeding, no night sweats Objective Objective Current Medications Medications (Trade) Dose Ordered Sig/Cirilo Route PRN Reason Start Time Stop Time Status Last Admin Dose Admin Acetaminophen (Tylenol) 650 mg Q4H PRN ORAL Fever 02/22/20 14:15 03/23/20 14:14 02/28/20 17:52 Acetaminophen (Tylenol) 650 mg Q4H PRN ORAL Mild Pain (Pain Scale 1-3) 02/22/20 14:15 03/23/20 14:14 03/01/20 14:25 Acetaminophen (Tylenol) 650 mg Q4H PRN RECTAL Mild Pain (Pain Scale 1-3) 02/22/20 14:15 03/23/20 14:14 02/22/20 21:28 Acetaminophen (Tylenol) 650 mg Q4H PRN RECTAL FEVER 02/22/20 14:15 03/23/20 14:14 Chlorhexidine Gluconate (Maira-Hex 2%) 1 applic DAILY@1999 TOPIC 02/23/20 20:00 05/23/20 19:59 03/02/20 21:06 Dextrose (Dextrose 50%) 25 ml Q30M PRN IV Hypoglycemia 02/23/20 09:00 05/23/20 08:59 Dextrose (Dextrose 50%) 50 ml Q30M PRN IV Hypoglycemia 02/23/20 09:00 05/23/20 08:59 Diphenhydramine HCl (Benadryl) 25 mg Q6H PRN ORAL Itching/Pruritis 02/22/20 14:15 03/23/20 14:14 02/26/20 01:34 Doxycycline Monohydrate (Doxycycline Monohydrate) 100 mg EVERY 12 HOURS ORAL 03/01/20 09:00 03/08/20 08:59 03/03/20 08:59 Fentanyl Citrate 2500 mcg/Sodium Chloride 250 ml @ 0 mls/hr Q24H IV 03/01/20 19:45 03/08/20 19:44 03/03/20 02:31 Insulin Aspart (NovoLOG) Q6HR SUBQ 02/28/20 18:00 05/28/20 17:59 03/02/20 12:42 Lorazepam (Ativan 2mg/ml 1ml) 1 mg Q6H PRN IV For Anxiety 02/26/20 08:30 03/04/20 08:29 02/29/20 04:46 Metoclopramide HCl (Reglan) 5 mg Q6HR IVP 03/01/20 12:00 03/31/20 11:59 03/03/20 05:20 Midazolam HCl 100 ml @ 0 mls/hr Q24H IV 02/26/20 15:06 05/26/20 15:05 02/26/20 15:48 Norepinephrine Bitartrate 8 mg/ Dextrose 500 ml @ 0 mls/hr Q24H IV 02/23/20 19:01 03/24/20 19:00 03/02/20 23:10 Pantoprazole (Protonix) 40 mg DAILY IVP 02/23/20 09:30 03/24/20 09:29 03/03/20 08:59 Phenylephrine HCl 50 mg/Dextrose 250 ml @ 6 mls/hr Q24H IV 02/29/20 10:45 03/30/20 10:44 03/03/20 05:18 Piperacillin Sod/ Tazobactam Sod 3.375 gm/Dextrose 110 ml @ 27.5 mls/hr Q8H IVPB 03/01/20 01:00 03/08/20 00:59 03/03/20 08:59 Vancomycin HCl (Vanco rx to dose) 1 ea DAILY PRN MISC Per rx protocol 02/22/20 14:30 03/23/20 14:29 Vancomycin HCl 1 gm/Dextrose 275 ml @ 183.708 mls/hr Q8H IVPB 03/02/20 21:00 03/07/20 20:59 03/03/20 05:18 Last 24 Hour Vital Signs Date Time Temp Pulse Resp B/P (MAP) Pulse Ox O2 Delivery O2 Flow Rate FiO2 03/03/20 09:30 121 32 126/63 (84) 03/03/20 09:00 121 35 128/58 (81) 03/03/20 08:41 118 33 100 03/03/20 08:30 118 34 133/67 (89) 03/03/20 08:00 100 03/03/20 08:00 99.0 117 36 137/69 (91) 97 03/03/20 08:00 Mechanical Ventilator 03/03/20 07:30 118 35 136/73 (94) 98 03/03/20 07:14 110 32 100 03/03/20 07:00 37 Mechanical Ventilator 100 03/03/20 07:00 127/65 03/03/20 07:00 112 33 127/65 (85) 100 03/03/20 06:45 112 34 121/66 (84) 100 03/03/20 06:30 114 33 124/64 (84) 100 03/03/20 06:30 34 23 03/03/20 06:15 114 34 126/62 (83) 100 03/03/20 06:00 37 Mechanical Ventilator 100 03/03/20 06:00 126/62 03/03/20 06:00 115 35 128/63 (84) 97 03/03/20 05:45 116 35 124/64 (84) 97 03/03/20 05:30 117 36 123/63 (83) 98 03/03/20 05:18 37 Mechanical Ventilator 100 03/03/20 05:18 116 129/68 03/03/20 05:15 115 38 129/68 (88) 92 03/03/20 05:00 115 37 127/63 (84) 94 03/03/20 05:00 37 Mechanical Ventilator 100 03/03/20 05:00 129/68 03/03/20 04:30 124/50 (74) 03/03/20 04:00 100 03/03/20 04:00 98.8 113 36 122/65 (84) 87 03/03/20 04:00 24 Mechanical Ventilator 100 03/03/20 04:00 129/67 03/03/20 04:00 Mechanical Ventilator 03/03/20 04:00 114 03/03/20 03:30 112 36 124/64 (84) 96 03/03/20 03:21 111 34 100 03/03/20 03:00 119 35 125/67 (86) 94 03/03/20 03:00 20 Mechanical Ventilator 100 03/03/20 03:00 118/65 03/03/20 02:31 24 100 03/03/20 02:30 112 33 132/67 (88) 100 03/03/20 02:00 26 Mechanical Ventilator 100 03/03/20 02:00 120/79 03/03/20 02:00 105 30 132/72 (92) 100 03/03/20 01:30 95 25 102/53 (69) 100 03/03/20 01:00 97 26 100/50 (67) 100 03/03/20 01:00 24 Mechanical Ventilator 100 03/03/20 01:00 102/54 03/03/20 00:30 99 28 96/48 (64) 100 03/03/20 00:00 100 03/03/20 00:00 98.5 102 28 103/55 (71) 100 03/03/20 00:00 102 28 103/55 (71) 100 03/03/20 00:00 Mechanical Ventilator 03/03/20 00:00 100 03/03/20 00:00 26 Mechanical Ventilator 100 03/03/20 00:00 95/59 03/02/20 23:27 117 34 100 03/02/20 23:10 105/70 03/02/20 23:00 24 Mechanical Ventilator 100 03/02/20 22:30 118 33 99/56 (70) 100 03/02/20 22:00 118 33 106/60 (75) 100 03/02/20 22:00 24 Mechanical Ventilator 100 03/02/20 21:30 108 31 114/60 (78) 100 03/02/20 21:00 114 34 120/65 (83) 100 03/02/20 21:00 20 Mechanical Ventilator 100 03/02/20 21:00 131/88 03/02/20 20:30 115 35 120/60 (80) 100 03/02/20 20:00 105 03/02/20 20:00 98.8 129 33 120/62 (81) 100 03/02/20 20:00 16 Mechanical Ventilator 100 03/02/20 20:00 134/74 5/6/20 20:00 100 520 20:00 Mechanical Ventilator 03/02/20 19:30 118 36 100 520 19:30 117 33 129/69 (89) 98 03/02/20 19:00 116 47 134/66 (88) 98 20 19:00 26 Mechanical Ventilator 100 03/02/20 19:00 132/74 20 18:30 113 34 131/73 (92) 100 03/02/20 18:00 34 Mechanical Ventilator 100 03/02/20 18:00 137/66 20 18:00 112 34 137/66 (89) 99 20 17:30 110 33 134/67 (89) 100 03/02/20 17:00 34 Mechanical Ventilator 100 03/02/20 17:00 128/68 03/02/20 17:00 96 34 128/68 (88) 100 03/02/20 16:30 94 34 125/70 (88) 100 03/02/20 16:00 100 03/02/20 16:00 Mechanical Ventilator 03/02/20 16:00 92 03/02/20 16:00 92 33 127/70 (89) 100 03/02/20 16:00 31 Mechanical Ventilator 100 03/02/20 16:00 127/70 03/02/20 15:30 80 27 100 03/02/20 15:30 90 31 104/65 (78) 100 03/02/20 15:00 29 Mechanical Ventilator 100 03/02/20 15:00 122/69 5 15:00 87 29 122/69 (86) 100 03/02/20 14:30 80 28 92/45 (61) 100 20 14:00 88 30 117/61 (79) 100 03/02/20 14:00 30 Mechanical Ventilator 100 03/02/20 14:00 110/60 5 13:30 85 27 89/47 (61) 100 03/02/20 13:00 96 32 86/48 (61) 100 20 13:00 32 Mechanical Ventilator 100 03/02/20 13:00 86/48 03/02/20 12:30 107 34 78/66 (70) 100 20 12:14 104 125/66 03/02/20 12:00 104 32 128/66 (86) 100 03/02/20 12:00 105 03/02/20 12:00 Mechanical Ventilator 03/02/20 12:00 35 Mechanical Ventilator 100 03/02/20 12:00 128/66 03/02/20 12:00 100 03/02/20 11:30 105 36 113/62 (79) 100 03/02/20 11:27 111 37 100 03/02/20 11:00 105 36 114/46 (68) 100 03/02/20 11:00 35 Mechanical Ventilator 100 03/02/20 11:00 116/64 03/02/20 10:30 104 36 114/68 (83) 100 03/02/20 10:00 35 Mechanical Ventilator 100 03/02/20 10:00 111/60 03/02/20 10:00 105 37 118/64 (82) 100 03/02/20 09:30 104 36 115/65 (82) 100 03/02/20 09:00 105 36 108/63 (78) 100 03/02/20 09:00 36 Mechanical Ventilator 100 03/02/20 09:00 114/68 03/02/20 08:30 112 37 97/51 (66) 100 03/02/20 08:00 100 03/02/20 08:00 99.0 106 38 117/66 (83) 95 03/02/20 08:00 106 03/02/20 08:00 37 Mechanical Ventilator 100 03/02/20 08:00 112/60 03/02/20 08:00 Mechanical Ventilator 03/02/20 07:30 105 36 113/65 (81) 88 03/02/20 07:29 119/67 03/02/20 07:28 113/65 03/02/20 07:22 112 37 100 03/02/20 07:00 20 Mechanical Ventilator 100 03/02/20 07:00 119/67 03/02/20 07:00 106 38 113/65 (81) 93 03/02/20 06:29 109 23 03/02/20 06:00 105 37 113/64 (80) 86 03/02/20 06:00 26 Mechanical Ventilator 100 03/02/20 06:00 111/63 03/02/20 05:58 24 Mechanical Ventilator 100 03/02/20 05:58 117/59 03/02/20 05:30 109 28 123/65 (84) 98 03/02/20 05:00 26 Mechanical Ventilator 03/02/20 05:00 117/63 03/02/20 05:00 109 32 128/69 (88) 92 03/02/20 04:30 108 40 135/69 (91) 94 03/02/20 04:00 99.0 105 38 124/70 (88) 98 03/02/20 04:00 Mechanical Ventilator 03/02/20 04:00 27 Mechanical Ventilator 100 03/02/20 04:00 123/66 03/02/20 04:00 100 03/02/20 04:00 103 03/02/20 03:30 102 38 121/60 (80) 98 03/02/20 03:05 102 38 100 03/02/20 03:00 37 Mechanical Ventilator 100 03/02/20 03:00 124/64 03/02/20 03:00 99 38 124/64 (84) 98 03/02/20 02:30 93 38 126/71 (89) 98 03/02/20 02:00 26 Mechanical Ventilator 100 03/02/20 02:00 125/53 03/02/20 02:00 82 28 96/48 (64) 98 03/02/20 01:30 89 31 120/59 (79) 99 03/02/20 01:00 91 31 126/60 (82) 98 03/02/20 01:00 33 Mechanical Ventilator 100 03/02/20 01:00 121/60 03/02/20 00:30 100 37 131/64 (86) 99 03/02/20 00:00 Mechanical Ventilator 03/02/20 00:00 100 03/02/20 00:00 98.3 93 32 106/49 (68) 97 03/02/20 00:00 93 03/02/20 00:00 22 Mechanical Ventilator 100 03/02/20 00:00 105/54 03/01/20 23:30 86 31 124/60 (81) 100 03/01/20 23:00 75 27 98/49 (65) 99 03/01/20 23:00 22 Mechanical Ventilator 100 03/01/20 23:00 20 Mechanical Ventilator 03/01/20 23:00 98/49 03/01/20 22:50 86 35 100 03/01/20 22:30 88 31 120/63 (82) 100 5/5/20 22:00 22 Mechanical Ventilator 5/520 22:00 117/61 5/5/20 22:00 90 32 126/64 (84) 99 5/520 21:30 90 30 120/64 (82) 100 5/5/20 21:00 20 Mechanical Ventilator 100 5//20 21:00 96/50 5/20 21:00 85 30 118/62 (80) 98 5/20 20:42 18 Mechanical Ventilator 20 20:30 96 27 119/65 (83) 99 5//20 20:00 100 5//20 20:00 95 5/20 20:00 Mechanical Ventilator 20 20:00 96 31 119/60 (79) 99 520 20:00 16 Mechanical Ventilator 100 520 20:00 120/61 520 19:45 18 Mechanical Ventilator 100 20 19:05 94 31 100 520 19:00 16 Mechanical Ventilator 100 20 19:00 115/56 520 19:00 97 32 120/58 (78) 99 5//20 18:30 96 32 106/61 (76) 97 520 18:06 111 79/43 5/20 18:06 79/43 520 18:00 79/42 5/20 18:00 96 32 79/42 (54) 97 5//20 17:30 105 34 110/54 (72) 96 520 17:00 105 34 107/55 (72) 96 20 17:00 107/55 520 16:30 108 33 108/53 (71) 95 520 16:00 100 5/20 16:00 112/56 520 16:00 104 /20 16:00 112 37 112/56 (74) 95 520 16:00 Mechanical Ventilator 20 15:30 115 38 118/59 (78) 94 5/20 15:27 106 34 100 5/20 15:00 122 38 115/55 (75) 91 20 15:00 113 35 115/55 (75) 94 03/01/20 15:00 115/55 03/01/20 14:55 99.0 03/01/20 14:30 120 37 125/67 (86) 96 03/01/20 14:00 106/57 03/01/20 14:00 123 37 106/56 (73) 93 03/01/20 13:30 124 36 110/56 (74) 93 03/01/20 13:00 122 37 119/54 (75) 88 03/01/20 13:00 119/54 03/01/20 12:30 120 37 120/59 (79) 96 03/01/20 12:00 120 03/01/20 12:00 108/60 03/01/20 12:00 100 03/01/20 12:00 116 36 108/60 (76) 96 03/01/20 12:00 Mechanical Ventilator 03/01/20 11:30 114 37 112/58 (76) 96 03/01/20 11:15 111 38 100 03/01/20 11:00 112 36 111/55 (73) 97 03/01/20 11:00 111/55 03/01/20 10:30 109 34 84/47 (59) 98 03/01/20 10:00 87/47 03/01/20 10:00 112 32 87/47 (60) 98 Intake and Output 03/02/20 03/03/20 19:00 07:00 Intake Total 1090.24 ml 1200.4000 ml Output Total 760 ml 695 ml Balance 330.24 ml 505.4000 ml Free Water 0 ml 50 ml IV Total 980.24 ml 1030.4000 ml Tube Feeding 110 ml 120 ml Output Urine Total 475 ml 505 ml Chest Tube Drainage Total 285 ml 190 ml Labs Test 02/29/20 11:50 03/01/20 05:55 03/02/20 05:44 03/03/20 03:50 Haptoglobin 102 mg/dL (34-355) Prothrombin Time 17.0 SEC (9.30-11.50) 15.4 SEC (9.30-11.50) Prothromb Time International Ratio 1.6 (0.9-1.1) 1.5 (0.9-1.1) Fibrinogen 406 mg/dL (200-400) Iron Level 10 ug/dL (50-175) Total Iron Binding Capacity 73 ug/dL (250-450) Percent Iron Saturation 14 % (15-50) Unsaturated Iron Binding 63 ug/dL (112-346) Ferritin 1413 NG/ML (8-388) White Blood Count 7.4 K/UL (4.8-10.8) 10.5 K/UL (4.8-10.8) Red Blood Count 3.12 M/UL (4.70-6.10) 2.78 M/UL (4.70-6.10) Hemoglobin 9.4 G/DL (14.2-18.0) 8.6 G/DL (14.2-18.0) Hematocrit 27.5 % (42.0-52.0) 24.5 % (42.0-52.0) Mean Corpuscular Volume 88 FL (80-99) 88 FL (80-99) Mean Corpuscular Hemoglobin 30.3 PG (27.0-31.0) 30.9 PG (27.0-31.0) Mean Corpuscular Hemoglobin Concent 34.4 G/DL (32.0-36.0) 35.1 G/DL (32.0-36.0) Red Cell Distribution Width 14.5 % (11.6-14.8) 14.2 % (11.6-14.8) Platelet Count 20 K/UL (150-450) 37 K/UL (150-450) Mean Platelet Volume 11.0 FL (6.5-10.1) 11.9 FL (6.5-10.1) Neutrophils (%) (Auto) % (45.0-75.0) % (45.0-75.0) Lymphocytes (%) (Auto) % (20.0-45.0) % (20.0-45.0) Monocytes (%) (Auto) % (1.0-10.0) % (1.0-10.0) Eosinophils (%) (Auto) % (0.0-3.0) % (0.0-3.0) Basophils (%) (Auto) % (0.0-2.0) % (0.0-2.0) Differential Total Cells Counted 100 100 Neutrophils % (Manual) 89 % (45-75) 86 % (45-75) Lymphocytes % (Manual) 5 % (20-45) 3 % (20-45) Monocytes % (Manual) 4 % (1-10) 11 % (1-10) Eosinophils % (Manual) 1 % (0-3) 0 % (0-3) Basophils % (Manual) 0 % (0-2) 0 % (0-2) Metamyelocytes % 1 % (0-0) Band Neutrophils 0 % (0-8) 0 % (0-8) Platelet Estimate Decreased Decreased Platelet Morphology Normal Normal Hypochromasia 2+ 2+ Anisocytosis 1+ 1+ Spherocytes 1+ 2+ Sodium Level 131 MMOL/L (136-145) 130 MMOL/L (136-145) 130 MMOL/L (136-145) Potassium Level 4.5 MMOL/L (3.5-5.1) 4.6 MMOL/L (3.5-5.1) 4.5 MMOL/L (3.5-5.1) Chloride Level 97 MMOL/L (98-107) 96 MMOL/L (98-107) 95 MMOL/L (98-107) Carbon Dioxide Level 27 MMOL/L (21-32) 29 MMOL/L (21-32) 29 MMOL/L (21-32) Anion Gap 7 mmol/L (5-15) 5 mmol/L (5-15) 6 mmol/L (5-15) Blood Urea Nitrogen 25 mg/dL (7-18) 29 mg/dL (7-18) 30 mg/dL (7-18) Creatinine 0.9 MG/DL (0.55-1.30) 0.9 MG/DL (0.55-1.30) 0.9 MG/DL (0.55-1.30) Estimat Glomerular Filtration Rate > 60 mL/min (>60) > 60 mL/min (>60) > 60 mL/min (>60) Glucose Level 132 MG/DL (74-106) 142 MG/DL (74-106) 131 MG/DL (74-106) Calcium Level 6.6 MG/DL (8.5-10.1) 7.2 MG/DL (8.5-10.1) 7.1 MG/DL (8.5-10.1) Total Bilirubin 11.3 MG/DL (0.2-1.0) 10.5 MG/DL (0.2-1.0) Direct Bilirubin 10.4 MG/DL (0.0-0.3) 8.8 MG/DL (0.0-0.3) Aspartate Amino Transf (AST/SGOT) 57 U/L (15-37) 52 U/L (15-37) Alanine Aminotransferase (ALT/SGPT) 33 U/L (12-78) 44 U/L (12-78) Alkaline Phosphatase 84 U/L (46-116) 264 U/L (46-116) Total Protein 4.3 G/DL (6.4-8.2) 5.1 G/DL (6.4-8.2) Albumin 1.1 G/DL (3.4-5.0) 1.2 G/DL (3.4-5.0) Globulin 3.2 g/dL 3.9 g/dL Albumin/Globulin Ratio 0.3 (1.0-2.7) 0.3 (1.0-2.7) Phosphorus Level 2.6 MG/DL (2.5-4.9) Magnesium Level 2.0 MG/DL (1.8-2.4) Activated Partial Thromboplast Time 33 SEC (23-33) Height (Feet): 5 Height (Inches): 5.00 Weight (Pounds): 121 Objective Physical Exam: Vitals: reviewed General: NAD HEENT: nc, at ++Ogt Neck: supple Chest: in the icu, remains intubated++ Cardiovascular: RRR, no s3, s4 Abdomen: soft, nontender, nd Extremities: no cce, normal range of motion Neuro: alert to self : Montez Maradiaga MD March 03, 2020 09:50
--- NOTE | 2020-03-03 10:02 | Nephrology Progress Note ---
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 # h/o DVT # schizophrenia, bipolar #thrombocytopenia #hypokalemia, hypophos - repleted #hypoalbuminemia - albumin 25g x1 today - monitor sodium - replete lytes, phos and K prn - continue icu care - off IVF - replete lytes prn - vasopressor per pulmonary - vent management per pulm - antibiotics per ID - vent management per pulmonary - monitor lytes - BG control - holding antihypertensive Subjective ROS Limited/Unobtainable: No Subjective labs reviewed albumin markedly low on levo drip sodium low - but stable Fio2 100 remains intubated Objective Objective Last 24 Hour Vital Signs Date Time Temp Pulse Resp B/P (MAP) Pulse Ox O2 Delivery O2 Flow Rate FiO2 03/03/20 09:30 121 32 126/63 (84) 03/03/20 09:00 121 35 128/58 (81) 03/03/20 08:41 118 33 100 03/03/20 08:30 118 34 133/67 (89) 03/03/20 08:00 100 03/03/20 08:00 99.0 117 36 137/69 (91) 97 03/03/20 08:00 Mechanical Ventilator 03/03/20 07:30 118 35 136/73 (94) 98 03/03/20 07:14 110 32 100 03/03/20 07:00 37 Mechanical Ventilator 100 03/03/20 07:00 127/65 03/03/20 07:00 112 33 127/65 (85) 100 03/03/20 06:45 112 34 121/66 (84) 100 03/03/20 06:30 114 33 124/64 (84) 100 03/03/20 06:30 34 23 03/03/20 06:15 114 34 126/62 (83) 100 03/03/20 06:00 37 Mechanical Ventilator 100 03/03/20 06:00 126/62 03/03/20 06:00 115 35 128/63 (84) 97 03/03/20 05:45 116 35 124/64 (84) 97 03/03/20 05:30 117 36 123/63 (83) 98 03/03/20 05:18 37 Mechanical Ventilator 100 03/03/20 05:18 116 129/68 03/03/20 05:15 115 38 129/68 (88) 92 03/03/20 05:00 115 37 127/63 (84) 94 03/03/20 05:00 37 Mechanical Ventilator 100 03/03/20 05:00 129/68 03/03/20 04:30 124/50 (74) 03/03/20 04:00 100 03/03/20 04:00 98.8 113 36 122/65 (84) 87 03/03/20 04:00 24 Mechanical Ventilator 100 03/03/20 04:00 129/67 03/03/20 04:00 Mechanical Ventilator 03/03/20 04:00 114 03/03/20 03:30 112 36 124/64 (84) 96 03/03/20 03:21 111 34 100 03/03/20 03:00 119 35 125/67 (86) 94 03/03/20 03:00 20 Mechanical Ventilator 100 03/03/20 03:00 118/65 03/03/20 02:31 24 100 03/03/20 02:30 112 33 132/67 (88) 100 03/03/20 02:00 26 Mechanical Ventilator 100 03/03/20 02:00 120/79 03/03/20 02:00 105 30 132/72 (92) 100 03/03/20 01:30 95 25 102/53 (69) 100 03/03/20 01:00 97 26 100/50 (67) 100 03/03/20 01:00 24 Mechanical Ventilator 100 03/03/20 01:00 102/54 03/03/20 00:30 99 28 96/48 (64) 100 03/03/20 00:00 100 03/03/20 00:00 98.5 102 28 103/55 (71) 100 03/03/20 00:00 102 28 103/55 (71) 100 03/03/20 00:00 Mechanical Ventilator 03/03/20 00:00 100 03/03/20 00:00 26 Mechanical Ventilator 100 03/03/20 00:00 95/59 03/02/20 23:27 117 34 100 03/02/20 23:10 105/70 03/02/20 23:00 24 Mechanical Ventilator 100 5/6/20 22:30 118 33 99/56 (70) 100 520 22:00 118 33 106/60 (75) 100 03/02/20 22:00 24 Mechanical Ventilator 100 03/02/20 21:30 108 31 114/60 (78) 100 20 21:00 114 34 120/65 (83) 100 20 21:00 20 Mechanical Ventilator 100 03/02/20 21:00 131/88 520 20:30 115 35 120/60 (80) 100 20 20:00 105 /20 20:00 98.8 129 33 120/62 (81) 100 20 20:00 16 Mechanical Ventilator 100 03/02/20 20:00 134/74 03/02/20 20:00 100 03/02/20 20:00 Mechanical Ventilator 03/02/20 19:30 118 36 100 03/02/20 19:30 117 33 129/69 (89) 98 03/02/20 19:00 116 47 134/66 (88) 98 03/02/20 19:00 26 Mechanical Ventilator 100 03/02/20 19:00 132/74 20 18:30 113 34 131/73 (92) 100 03/02/20 18:00 34 Mechanical Ventilator 100 03/02/20 18:00 137/66 03/02/20 18:00 112 34 137/66 (89) 99 20 17:30 110 33 134/67 (89) 100 03/02/20 17:00 34 Mechanical Ventilator 100 03/02/20 17:00 128/68 20 17:00 96 34 128/68 (88) 100 20 16:30 94 34 125/70 (88) 100 20 16:00 100 03/02/20 16:00 Mechanical Ventilator 03/02/20 16:00 92 03/02/20 16:00 92 33 127/70 (89) 100 03/02/20 16:00 31 Mechanical Ventilator 100 20 16:00 127/70 20 15:30 80 27 100 20 15:30 90 31 104/65 (78) 100 03/02/20 15:00 29 Mechanical Ventilator 100 5/6/20 15:00 122/69 5/6/20 15:00 87 29 122/69 (86) 100 03/02/20 14:30 80 28 92/45 (61) 100 03/02/20 14:00 88 30 117/61 (79) 100 03/02/20 14:00 30 Mechanical Ventilator 100 03/02/20 14:00 110/60 03/02/20 13:30 85 27 89/47 (61) 100 03/02/20 13:00 96 32 86/48 (61) 100 03/02/20 13:00 32 Mechanical Ventilator 100 03/02/20 13:00 86/48 03/02/20 12:30 107 34 78/66 (70) 100 03/02/20 12:14 104 125/66 03/02/20 12:00 104 32 128/66 (86) 100 03/02/20 12:00 105 03/02/20 12:00 Mechanical Ventilator 03/02/20 12:00 35 Mechanical Ventilator 100 03/02/20 12:00 128/66 03/02/20 12:00 100 03/02/20 11:30 105 36 113/62 (79) 100 03/02/20 11:27 111 37 100 03/02/20 11:00 105 36 114/46 (68) 100 03/02/20 11:00 35 Mechanical Ventilator 100 03/02/20 11:00 116/64 03/02/20 10:30 104 36 114/68 (83) 100 Intake and Output 03/02/20 03/03/20 19:00 07:00 Intake Total 1090.24 ml 1200.4000 ml Output Total 760 ml 695 ml Balance 330.24 ml 505.4000 ml Free Water 0 ml 50 ml IV Total 980.24 ml 1030.4000 ml Tube Feeding 110 ml 120 ml Output Urine Total 475 ml 505 ml Chest Tube Drainage Total 285 ml 190 ml Laboratory Tests 03/03/20 03:50: White Blood Count 10.5, Red Blood Count 2.78L, Hemoglobin 8.6L, Hematocrit 24.5L , Mean Corpuscular Volume 88, Mean Corpuscular Hemoglobin 30.9, Mean Corpuscular Hemoglobin Concent 35.1, Red Cell Distribution Width 14.2, Platelet Count 37L, Mean Platelet Volume 11.9H, Neutrophils (%) (Auto) , Lymphocytes (%) (Auto) , Monocytes (%) (Auto) , Eosinophils (%) (Auto) , Basophils (%) (Auto) , Differential Total Cells Counted 100, Neutrophils % (Manual) 86H, Lymphocytes % (Manual) 3L, Monocytes % (Manual) 11H, Eosinophils % (Manual) 0, Basophils % ( Manual) 0, Band Neutrophils 0, Platelet Estimate DecreasedL, Platelet Morphology Normal, Hypochromasia 2+, Anisocytosis 1+, Spherocytes 2+, Prothrombin Time 15.4H, Prothromb Time International Ratio 1.5H, Activated Partial Thromboplast Time 33, Sodium Level 130L, Potassium Level 4.5, Chloride Level 95L, Carbon Dioxide Level 29, Anion Gap 6, Blood Urea Nitrogen 30H, Creatinine 0.9, Estimat Glomerular Filtration Rate > 60, Glucose Level 131H, Calcium Level 7.1L, Total Bilirubin 10.5H, Direct Bilirubin 8.8H, Aspartate Amino Transf (AST/SGOT) 52H, Alanine Aminotransferase (ALT/SGPT) 44, Alkaline Phosphatase 264H, Total Protein 5.1L, Albumin 1.2L, Globulin 3.9, Albumin/ Globulin Ratio 0.3L Height (Feet): 5 Height (Inches): 5.00 Weight (Pounds): 121 Objective General Appearance: other - intubated Lines, tubes and drains: peripheral HEENT: normocephalic, atraumatic, other - dry mucous membranes Neck: non-tender, normal alignment Respiratory/Chest: rhonchi - bilaterally Cardiovascular/Chest: normal peripheral pulses, normal rate Abdomen: soft, hypoactive bowel sounds Extremities: normal range of motion, no calf tenderness, non-pitting, no edema Skin Exam: normal pigmentation, warm/dry Dwayne Salas M.D. March 03, 2020 10:02
--- NOTE | 2020-03-03 10:57 | Pulmonology Progress Note ---
Subjective ROS Limited/Unobtainable: No Interval Events: Remains intubtaed; was intubated on 02/22/20 Constitutional: Reports: other - on vent, pressors, + chest tube ; Denies: fever HEENT: Repors: no symptoms Respiratory: Reports: no symptoms Cardiovascular: Reports: no symptoms Gastrointestinal/Abdominal: Denies: nausea, vomiting, diarrhea Genitourinary: Reports: no symptoms Psychiatric: Reports: other - NA Skin: Denies: rash Endocrine: Reports: no symptoms Musculoskeletal: Reports: other - NA Allergies: Coded Allergies: No Known Allergies (Unverified , 01/19/19) All Systems: reviewed and negative except above Subjective seen and evaluated Discussed with RN Left chest tube placed by surgery Objective Last 24 Hour Vital Signs Date Time Temp Pulse Resp B/P (MAP) Pulse Ox O2 Delivery O2 Flow Rate FiO2 03/03/20 09:30 121 32 126/63 (84) 03/03/20 09:00 121 35 128/58 (81) 03/03/20 08:41 118 33 100 03/03/20 08:30 118 34 133/67 (89) 03/03/20 08:00 100 03/03/20 08:00 99.0 117 36 137/69 (91) 97 03/03/20 08:00 Mechanical Ventilator 03/03/20 07:30 118 35 136/73 (94) 98 03/03/20 07:14 110 32 100 03/03/20 07:00 37 Mechanical Ventilator 100 03/03/20 07:00 127/65 03/03/20 07:00 112 33 127/65 (85) 100 03/03/20 06:45 112 34 121/66 (84) 100 03/03/20 06:30 114 33 124/64 (84) 100 03/03/20 06:30 34 23 03/03/20 06:15 114 34 126/62 (83) 100 03/03/20 06:00 37 Mechanical Ventilator 100 03/03/20 06:00 126/62 03/03/20 06:00 115 35 128/63 (84) 97 03/03/20 05:45 116 35 124/64 (84) 97 03/03/20 05:30 117 36 123/63 (83) 98 03/03/20 05:18 37 Mechanical Ventilator 100 5/7/20 05:18 116 129/68 03/03/20 05:15 115 38 129/68 (88) 92 03/03/20 05:00 115 37 127/63 (84) 94 03/03/20 05:00 37 Mechanical Ventilator 100 03/03/20 05:00 129/68 03/03/20 04:30 124/50 (74) 03/03/20 04:00 100 03/03/20 04:00 98.8 113 36 122/65 (84) 87 03/03/20 04:00 24 Mechanical Ventilator 100 03/03/20 04:00 129/67 03/03/20 04:00 Mechanical Ventilator 03/03/20 04:00 114 03/03/20 03:30 112 36 124/64 (84) 96 03/03/20 03:21 111 34 100 03/03/20 03:00 119 35 125/67 (86) 94 03/03/20 03:00 20 Mechanical Ventilator 100 03/03/20 03:00 118/65 03/03/20 02:31 24 100 03/03/20 02:30 112 33 132/67 (88) 100 03/03/20 02:00 26 Mechanical Ventilator 100 03/03/20 02:00 120/79 03/03/20 02:00 105 30 132/72 (92) 100 03/03/20 01:30 95 25 102/53 (69) 100 03/03/20 01:00 97 26 100/50 (67) 100 03/03/20 01:00 24 Mechanical Ventilator 100 03/03/20 01:00 102/54 03/03/20 00:30 99 28 96/48 (64) 100 03/03/20 00:00 100 03/03/20 00:00 98.5 102 28 103/55 (71) 100 03/03/20 00:00 102 28 103/55 (71) 100 03/03/20 00:00 Mechanical Ventilator 03/03/20 00:00 100 03/03/20 00:00 26 Mechanical Ventilator 100 03/03/20 00:00 95/59 03/02/20 23:27 117 34 100 03/02/20 23:10 105/70 03/02/20 23:00 24 Mechanical Ventilator 100 03/02/20 22:30 118 33 99/56 (70) 100 5/6/20 22:00 118 33 106/60 (75) 100 520 22:00 24 Mechanical Ventilator 100 03/02/20 21:30 108 31 114/60 (78) 100 20 21:00 114 34 120/65 (83) 100 03/02/20 21:00 20 Mechanical Ventilator 100 03/02/20 21:00 131/88 5/20 20:30 115 35 120/60 (80) 100 20 20:00 105 20 20:00 98.8 129 33 120/62 (81) 100 20 20:00 16 Mechanical Ventilator 100 03/02/20 20:00 134/74 20 20:00 100 03/02/20 20:00 Mechanical Ventilator 03/02/20 19:30 118 36 100 03/02/20 19:30 117 33 129/69 (89) 98 03/02/20 19:00 116 47 134/66 (88) 98 03/02/20 19:00 26 Mechanical Ventilator 100 03/02/20 19:00 132/74 03/02/20 18:30 113 34 131/73 (92) 100 03/02/20 18:00 34 Mechanical Ventilator 100 03/02/20 18:00 137/66 20 18:00 112 34 137/66 (89) 99 03/02/20 17:30 110 33 134/67 (89) 100 03/02/20 17:00 34 Mechanical Ventilator 100 03/02/20 17:00 128/68 20 17:00 96 34 128/68 (88) 100 03/02/20 16:30 94 34 125/70 (88) 100 20 16:00 100 03/02/20 16:00 Mechanical Ventilator 03/02/20 16:00 92 20 16:00 92 33 127/70 (89) 100 20 16:00 31 Mechanical Ventilator 100 03/02/20 16:00 127/70 03/02/20 15:30 80 27 100 20 15:30 90 31 104/65 (78) 100 20 15:00 29 Mechanical Ventilator 100 03/02/20 15:00 122/69 520 15:00 87 29 122/69 (86) 100 5/6/20 14:30 80 28 92/45 (61) 100 03/02/20 14:00 88 30 117/61 (79) 100 03/02/20 14:00 30 Mechanical Ventilator 100 03/02/20 14:00 110/60 03/02/20 13:30 85 27 89/47 (61) 100 03/02/20 13:00 96 32 86/48 (61) 100 03/02/20 13:00 32 Mechanical Ventilator 100 03/02/20 13:00 86/48 03/02/20 12:30 107 34 78/66 (70) 100 03/02/20 12:14 104 125/66 03/02/20 12:00 104 32 128/66 (86) 100 03/02/20 12:00 105 03/02/20 12:00 Mechanical Ventilator 03/02/20 12:00 35 Mechanical Ventilator 100 03/02/20 12:00 128/66 03/02/20 12:00 100 03/02/20 11:30 105 36 113/62 (79) 100 03/02/20 11:27 111 37 100 03/02/20 11:00 105 36 114/46 (68) 100 03/02/20 11:00 35 Mechanical Ventilator 100 03/02/20 11:00 116/64 Intake and Output 03/02/20 03/03/20 19:00 07:00 Intake Total 1090.24 ml 1200.4000 ml Output Total 760 ml 695 ml Balance 330.24 ml 505.4000 ml Free Water 0 ml 50 ml IV Total 980.24 ml 1030.4000 ml Tube Feeding 110 ml 120 ml Output Urine Total 475 ml 505 ml Chest Tube Drainage Total 285 ml 190 ml General Appearance: no acute distress HEENT: normocephalic, atraumatic, anicteric, no JVD, other - oral - intubated Respiratory/Chest: chest wall non-tender, decreased breath sounds, other - hAS SUB CUT EMPHYSEMA LEWFT SIDE Cardiovascular: normal peripheral pulses Abdomen: normal bowel sounds, soft, non tender, no organomegaly Genitourinary: other - + rush - urine slt cloudy Extremities: no cyanosis Skin: no rash Neurologic/Psychiatric: other - lethargic, weak Lymphatic: no neck adenopathy Musculoskeletal: no effusion Laboratory Tests 03/03/20 03:50: White Blood Count 10.5, Red Blood Count 2.78L, Hemoglobin 8.6L, Hematocrit 24.5L , Mean Corpuscular Volume 88, Mean Corpuscular Hemoglobin 30.9, Mean Corpuscular Hemoglobin Concent 35.1, Red Cell Distribution Width 14.2, Platelet Count 37L, Mean Platelet Volume 11.9H, Neutrophils (%) (Auto) , Lymphocytes (%) (Auto) , Monocytes (%) (Auto) , Eosinophils (%) (Auto) , Basophils (%) (Auto) , Differential Total Cells Counted 100, Neutrophils % (Manual) 86H, Lymphocytes % (Manual) 3L, Monocytes % (Manual) 11H, Eosinophils % (Manual) 0, Basophils % ( Manual) 0, Band Neutrophils 0, Platelet Estimate DecreasedL, Platelet Morphology Normal, Hypochromasia 2+, Anisocytosis 1+, Spherocytes 2+, Prothrombin Time 15.4H, Prothromb Time International Ratio 1.5H, Activated Partial Thromboplast Time 33, Sodium Level 130L, Potassium Level 4.5, Chloride Level 95L, Carbon Dioxide Level 29, Anion Gap 6, Blood Urea Nitrogen 30H, Creatinine 0.9, Estimat Glomerular Filtration Rate > 60, Glucose Level 131H, Calcium Level 7.1L, Total Bilirubin 10.5H, Direct Bilirubin 8.8H, Aspartate Amino Transf (AST/SGOT) 52H, Alanine Aminotransferase (ALT/SGPT) 44, Alkaline Phosphatase 264H, Total Protein 5.1L, Albumin 1.2L, Globulin 3.9, Albumin/ Globulin Ratio 0.3L Current Medications Medications (Trade) Dose Ordered Sig/Cirilo Route PRN Reason Start Time Stop Time Status Last Admin Dose Admin Acetaminophen (Tylenol) 650 mg Q4H PRN ORAL Fever 02/22/20 14:15 03/23/20 14:14 02/28/20 17:52 Acetaminophen (Tylenol) 650 mg Q4H PRN ORAL Mild Pain (Pain Scale 1-3) 02/22/20 14:15 03/23/20 14:14 03/01/20 14:25 Acetaminophen (Tylenol) 650 mg Q4H PRN RECTAL Mild Pain (Pain Scale 1-3) 02/22/20 14:15 03/23/20 14:14 02/22/20 21:28 Acetaminophen (Tylenol) 650 mg Q4H PRN RECTAL FEVER 02/22/20 14:15 03/23/20 14:14 Albumin Human 100 ml @ 100 mls/hr ONCE ONCE IV 03/03/20 10:15 03/03/20 11:14 03/03/20 10:29 Chlorhexidine Gluconate (Maira-Hex 2%) 1 applic DAILY@2000 TOPIC 02/23/20 20:00 05/23/20 19:59 03/02/20 21:06 Dextrose (Dextrose 50%) 25 ml Q30M PRN IV Hypoglycemia 02/23/20 09:00 05/23/20 08:59 Dextrose (Dextrose 50%) 50 ml Q30M PRN IV Hypoglycemia 02/23/20 09:00 05/23/20 08:59 Diphenhydramine HCl (Benadryl) 25 mg Q6H PRN ORAL Itching/Pruritis 02/22/20 14:15 03/23/20 14:14 02/26/20 01:34 Doxycycline Monohydrate (Doxycycline Monohydrate) 100 mg EVERY 12 HOURS ORAL 03/01/20 09:00 03/08/20 08:59 03/03/20 08:59 Fentanyl Citrate 2500 mcg/Sodium Chloride 250 ml @ 0 mls/hr Q24H IV 03/01/20 19:45 03/08/20 19:44 03/03/20 02:31 Insulin Aspart (NovoLOG) Q6HR SUBQ 02/28/20 18:00 05/28/20 17:59 03/02/20 12:42 Lorazepam (Ativan 2mg/ml 1ml) 1 mg Q6H PRN IV For Anxiety 02/26/20 08:30 03/04/20 08:29 02/29/20 04:46 Metoclopramide HCl (Reglan) 5 mg Q6HR IVP 03/01/20 12:00 03/31/20 11:59 03/03/20 05:20 Midazolam HCl 100 ml @ 0 mls/hr Q24H IV 02/26/20 15:06 05/26/20 15:05 02/26/20 15:48 Norepinephrine Bitartrate 8 mg/ Dextrose 500 ml @ 0 mls/hr Q24H IV 02/23/20 19:01 03/24/20 19:00 03/02/20 23:10 Pantoprazole (Protonix) 40 mg DAILY IVP 02/23/20 09:30 03/24/20 09:29 03/03/20 08:59 Phenylephrine HCl 50 mg/Dextrose 250 ml @ 6 mls/hr Q24H IV 02/29/20 10:45 03/30/20 10:44 03/03/20 05:18 Piperacillin Sod/ Tazobactam Sod 3.375 gm/Dextrose 110 ml @ 27.5 mls/hr Q8H IVPB 03/01/20 01:00 03/08/20 00:59 03/03/20 08:59 Vancomycin HCl (Vanco rx to dose) 1 ea DAILY PRN MISC Per rx protocol 02/22/20 14:30 03/23/20 14:29 Vancomycin HCl 1 gm/Dextrose 275 ml @ 183.708 mls/hr Q8H IVPB 03/02/20 21:00 03/07/20 20:59 03/03/20 05:18 Assessment/Plan Assessment/Plan IMPRESSION: 1. Respiratory failure. 2. Bilateral pneumonia. + COVID 19 3. Pulmonary edema. 4. Diabetes mellitus. 5. Left PTX with subcut emphysema; s/p chest tube DISCUSSION: Positive COVID 19 pcr The patient is critically ill at this point in time. Poor prognosis Increasing pressor requirements Noted Cardiology consultation. Continue broad-spectrum antibiotics. Continue respiratory support; will adjust vent settings I will follow carefully. S/p chest tube Continue Ac mode 100 FiO2 and PEEP 5 SaO2 97% Martine Rodriguez Omar Syed MD March 03, 2020 10:57
--- NOTE | 2020-03-03 11:17 | General Progress Note ---
Assessment/Plan Problem List: (1) Elevated LFTs ICD Codes: R79.89 - Other specified abnormal findings of blood chemistry SNOMED: 008299522, 475874128 (2) Thrombocytopenia ICD Codes: D69.6 - Thrombocytopenia, unspecified SNOMED: 254654371 (3) Suspected COVID-19 virus infection ICD Codes: Z20.828 - Contact with and (suspected) exposure to other viral communicable diseases SNOMED: 102014953 (4) Respiratory failure with hypoxia ICD Codes: J96.91 - Respiratory failure, unspecified with hypoxia SNOMED: 94598780599393798 Qualifiers: Qualified Codes: J96.01 - Acute respiratory failure with hypoxia (5) Hypotension ICD Codes: I95.9 - Hypotension, unspecified SNOMED: 41778805 Qualifiers: Qualified Codes: I95.9 - Hypotension, unspecified (6) Alzheimer's dementia ICD Codes: G30.9 - Alzheimer's disease, unspecified; F02.80 - Dementia in other diseases classified elsewhere without behavioral disturbance SNOMED: 16965117 (7) Cerebrovascular accident (CVA) ICD Codes: I63.9 - Cerebral infarction, unspecified SNOMED: 872090445 (8) History of hypertension ICD Codes: Z86.79 - Personal history of other diseases of the circulatory system SNOMED: 051746189 (9) Diabetes mellitus ICD Codes: E11.9 - Type 2 diabetes mellitus without complications SNOMED: 45346358 Assessment/Plan: reglan monitor for residuals fu labs abx per ID current TF at 10 cc, poor prognosis Subjective ROS Limited/Unobtainable: No Allergies: Coded Allergies: No Known Allergies (Unverified , 01/19/19) Objective Last 24 Hour Vital Signs Date Time Temp Pulse Resp B/P (MAP) Pulse Ox O2 Delivery O2 Flow Rate FiO2 03/03/20 11:12 104 24 100 03/03/20 09:30 121 32 126/63 (84) 03/03/20 09:00 121 35 128/58 (81) 03/03/20 08:41 118 33 100 03/03/20 08:30 118 34 133/67 (89) 03/03/20 08:00 100 03/03/20 08:00 99.0 117 36 137/69 (91) 97 03/03/20 08:00 Mechanical Ventilator 03/03/20 07:30 118 35 136/73 (94) 98 03/03/20 07:14 110 32 100 03/03/20 07:00 37 Mechanical Ventilator 100 03/03/20 07:00 127/65 03/03/20 07:00 112 33 127/65 (85) 100 03/03/20 06:45 112 34 121/66 (84) 100 03/03/20 06:30 114 33 124/64 (84) 100 03/03/20 06:30 34 23 03/03/20 06:15 114 34 126/62 (83) 100 03/03/20 06:00 37 Mechanical Ventilator 100 03/03/20 06:00 126/62 03/03/20 06:00 115 35 128/63 (84) 97 03/03/20 05:45 116 35 124/64 (84) 97 03/03/20 05:30 117 36 123/63 (83) 98 03/03/20 05:18 37 Mechanical Ventilator 100 03/03/20 05:18 116 129/68 03/03/20 05:15 115 38 129/68 (88) 92 03/03/20 05:00 115 37 127/63 (84) 94 03/03/20 05:00 37 Mechanical Ventilator 100 03/03/20 05:00 129/68 03/03/20 04:30 124/50 (74) 03/03/20 04:00 100 03/03/20 04:00 98.8 113 36 122/65 (84) 87 03/03/20 04:00 24 Mechanical Ventilator 100 03/03/20 04:00 129/67 03/03/20 04:00 Mechanical Ventilator 03/03/20 04:00 114 03/03/20 03:30 112 36 124/64 (84) 96 03/03/20 03:21 111 34 100 03/03/20 03:00 119 35 125/67 (86) 94 03/03/20 03:00 20 Mechanical Ventilator 100 03/03/20 03:00 118/65 03/03/20 02:31 24 100 03/03/20 02:30 112 33 132/67 (88) 100 03/03/20 02:00 26 Mechanical Ventilator 100 03/03/20 02:00 120/79 03/03/20 02:00 105 30 132/72 (92) 100 03/03/20 01:30 95 25 102/53 (69) 100 03/03/20 01:00 97 26 100/50 (67) 100 03/03/20 01:00 24 Mechanical Ventilator 100 03/03/20 01:00 102/54 03/03/20 00:30 99 28 96/48 (64) 100 03/03/20 00:00 100 03/03/20 00:00 98.5 102 28 103/55 (71) 100 03/03/20 00:00 102 28 103/55 (71) 100 03/03/20 00:00 Mechanical Ventilator 03/03/20 00:00 100 03/03/20 00:00 26 Mechanical Ventilator 100 03/03/20 00:00 95/59 03/02/20 23:27 117 34 100 03/02/20 23:10 105/70 03/02/20 23:00 24 Mechanical Ventilator 100 03/02/20 22:30 118 33 99/56 (70) 100 03/02/20 22:00 118 33 106/60 (75) 100 03/02/20 22:00 24 Mechanical Ventilator 100 03/02/20 21:30 108 31 114/60 (78) 100 03/02/20 21:00 114 34 120/65 (83) 100 03/02/20 21:00 20 Mechanical Ventilator 100 03/02/20 21:00 131/88 03/02/20 20:30 115 35 120/60 (80) 100 03/02/20 20:00 105 03/02/20 20:00 98.8 129 33 120/62 (81) 100 03/02/20 20:00 16 Mechanical Ventilator 100 03/02/20 20:00 134/74 03/02/20 20:00 100 03/02/20 20:00 Mechanical Ventilator 03/02/20 19:30 118 36 100 03/02/20 19:30 117 33 129/69 (89) 98 03/02/20 19:00 116 47 134/66 (88) 98 03/02/20 19:00 26 Mechanical Ventilator 100 03/02/20 19:00 132/74 520 18:30 113 34 131/73 (92) 100 03/02/20 18:00 34 Mechanical Ventilator 100 03/02/20 18:00 137/66 5/6/20 18:00 112 34 137/66 (89) 99 520 17:30 110 33 134/67 (89) 100 520 17:00 34 Mechanical Ventilator 100 20 17:00 128/68 20 17:00 96 34 128/68 (88) 100 20 16:30 94 34 125/70 (88) 100 20 16:00 100 20 16:00 Mechanical Ventilator 20 16:00 92 20 16:00 92 33 127/70 (89) 100 20 16:00 31 Mechanical Ventilator 100 03/02/20 16:00 127/70 20 15:30 80 27 100 03/02/20 15:30 90 31 104/65 (78) 100 03/02/20 15:00 29 Mechanical Ventilator 100 03/02/20 15:00 122/69 20 15:00 87 29 122/69 (86) 100 03/02/20 14:30 80 28 92/45 (61) 100 03/02/20 14:00 88 30 117/61 (79) 100 03/02/20 14:00 30 Mechanical Ventilator 100 03/02/20 14:00 110/60 03/02/20 13:30 85 27 89/47 (61) 100 03/02/20 13:00 96 32 86/48 (61) 100 03/02/20 13:00 32 Mechanical Ventilator 100 03/02/20 13:00 86/48 20 12:30 107 34 78/66 (70) 100 20 12:14 104 125/66 20 12:00 104 32 128/66 (86) 100 20 12:00 105 20 12:00 Mechanical Ventilator 03/02/20 12:00 35 Mechanical Ventilator 100 20 12:00 128/66 20 12:00 100 03/02/20 11:30 105 36 113/62 (79) 100 20 11:27 111 37 100 Intake and Output 20 20 19:00 07:00 Intake Total 1090.24 ml 1200.4000 ml Output Total 760 ml 695 ml Balance 330.24 ml 505.4000 ml Free Water 0 ml 50 ml IV Total 980.24 ml 1030.4000 ml Tube Feeding 110 ml 120 ml Output Urine Total 475 ml 505 ml Chest Tube Drainage Total 285 ml 190 ml Laboratory Tests 03/03/20 03:50: White Blood Count 10.5, Red Blood Count 2.78L, Hemoglobin 8.6L, Hematocrit 24.5L , Mean Corpuscular Volume 88, Mean Corpuscular Hemoglobin 30.9, Mean Corpuscular Hemoglobin Concent 35.1, Red Cell Distribution Width 14.2, Platelet Count 37L, Mean Platelet Volume 11.9H, Neutrophils (%) (Auto) , Lymphocytes (%) (Auto) , Monocytes (%) (Auto) , Eosinophils (%) (Auto) , Basophils (%) (Auto) , Differential Total Cells Counted 100, Neutrophils % (Manual) 86H, Lymphocytes % (Manual) 3L, Monocytes % (Manual) 11H, Eosinophils % (Manual) 0, Basophils % ( Manual) 0, Band Neutrophils 0, Platelet Estimate DecreasedL, Platelet Morphology Normal, Hypochromasia 2+, Anisocytosis 1+, Spherocytes 2+, Prothrombin Time 15.4H, Prothromb Time International Ratio 1.5H, Activated Partial Thromboplast Time 33, Sodium Level 130L, Potassium Level 4.5, Chloride Level 95L, Carbon Dioxide Level 29, Anion Gap 6, Blood Urea Nitrogen 30H, Creatinine 0.9, Estimat Glomerular Filtration Rate > 60, Glucose Level 131H, Calcium Level 7.1L, Total Bilirubin 10.5H, Direct Bilirubin 8.8H, Aspartate Amino Transf (AST/SGOT) 52H, Alanine Aminotransferase (ALT/SGPT) 44, Alkaline Phosphatase 264H, Total Protein 5.1L, Albumin 1.2L, Globulin 3.9, Albumin/ Globulin Ratio 0.3L Height (Feet): 5 Height (Inches): 5.00 Weight (Pounds): 121 General Appearance: no apparent distress EENT: normal ENT inspection Neck: supple Cardiovascular: tachycardia Respiratory/Chest: decreased breath sounds Abdomen: normal bowel sounds, non tender, soft Extremities: non-tender Domo Howe MD March 03, 2020 11:17
--- NOTE | 2020-03-03 12:06 | Diagnostic Imaging Report ---
Indication: Dyspnea Technique: One view of the chest Comparison: 03/02/2020 Findings: Endotracheal tube, orogastric tube, left chest tube, right jugular central venous catheter remain in stable satisfactory positions. Small left apical pneumothorax was not visible on the previous day but appears similar to the 03/01/2020 exam. No definite left pneumothorax demonstrated. Extensive subcutaneous emphysema is unchanged. Extensive bilateral infiltrates are unchanged. Impression: Small right apical pneumothorax, not visible on previous day's exam but unchanged from 03/01/2020 Otherwise stable findings as described
[2020-03-03] MEDS: Norepinephrine Bitartrate 8 MG in D5W 500ml 492 ML IV SCH (12:36)
--- NOTE | 2020-03-03 13:51 | Cardiac Electrophysiology PN ---
Assessment/Plan Assessment/Plan 1. Respiratory failure due to COVID pneumonia and CHF as BNP is more than 2000. Echo EF 50%. His white count however is only 7.2 with lymphopenia On the Vent 100% Fio2, PEEP 5 2. Septic shock likely due to pneumonia and dehydration. On Levo and Fredrick and Abx. 3. CXR, Since 02/26/2020, interim development of small bilateral pneumothoraces, right greater than left, and extensive subcutaneous emphysema. There may also be minimal pneumomediastinum. S/P Left chest tube 03/02/20 4. Hypernatremia, resolved with IV fluids. 5. Dehydration. Subjective Subjective In ICU on Levo 10 and Fredrick 40 on the vent with Fio2 100% and PEEP 5. EF 50%. Covid PCR is positive. .S/P Left chest tube placement 03/02/20 and draining 500 cc overnight and 900cc yesterday Objective Last 24 Hour Vital Signs Date Time Temp Pulse Resp B/P (MAP) Pulse Ox O2 Delivery O2 Flow Rate FiO2 03/03/20 13:11 114 32 100 03/03/20 12:36 132/58 03/03/20 11:12 104 24 100 03/03/20 11:00 24 Mechanical Ventilator 100 03/03/20 11:00 119/54 03/03/20 11:00 108 21 108/52 (70) 03/03/20 10:30 116 31 129/70 (89) 03/03/20 10:00 117 30 125/60 (81) 03/03/20 10:00 31 Mechanical Ventilator 100 03/03/20 10:00 126/62 03/03/20 09:30 121 32 126/63 (84) 03/03/20 09:00 33 Mechanical Ventilator 100 03/03/20 09:00 128/58 03/03/20 09:00 121 35 128/58 (81) 03/03/20 08:41 118 33 100 03/03/20 08:30 118 34 133/67 (89) 03/03/20 08:00 100 03/03/20 08:00 34 Mechanical Ventilator 100 03/03/20 08:00 122/72 03/03/20 08:00 99.0 117 36 137/69 (91) 97 03/03/20 08:00 Mechanical Ventilator 03/03/20 07:30 118 35 136/73 (94) 98 03/03/20 07:14 110 32 100 03/03/20 07:00 37 Mechanical Ventilator 100 03/03/20 07:00 127/65 03/03/20 07:00 112 33 127/65 (85) 100 03/03/20 06:45 112 34 121/66 (84) 100 03/03/20 06:30 114 33 124/64 (84) 100 03/03/20 06:30 34 23 03/03/20 06:15 114 34 126/62 (83) 100 03/03/20 06:00 37 Mechanical Ventilator 100 03/03/20 06:00 126/62 03/03/20 06:00 115 35 128/63 (84) 97 03/03/20 05:45 116 35 124/64 (84) 97 03/03/20 05:30 117 36 123/63 (83) 98 03/03/20 05:18 37 Mechanical Ventilator 100 03/03/20 05:18 116 129/68 03/03/20 05:15 115 38 129/68 (88) 92 03/03/20 05:00 115 37 127/63 (84) 94 03/03/20 05:00 37 Mechanical Ventilator 100 03/03/20 05:00 129/68 03/03/20 04:30 124/50 (74) 03/03/20 04:00 100 03/03/20 04:00 98.8 113 36 122/65 (84) 87 03/03/20 04:00 24 Mechanical Ventilator 100 03/03/20 04:00 129/67 03/03/20 04:00 Mechanical Ventilator 03/03/20 04:00 114 03/03/20 03:30 112 36 124/64 (84) 96 03/03/20 03:21 111 34 100 03/03/20 03:00 119 35 125/67 (86) 94 03/03/20 03:00 20 Mechanical Ventilator 100 03/03/20 03:00 118/65 03/03/20 02:31 24 100 03/03/20 02:30 112 33 132/67 (88) 100 03/03/20 02:00 26 Mechanical Ventilator 100 03/03/20 02:00 120/79 03/03/20 02:00 105 30 132/72 (92) 100 03/03/20 01:30 95 25 102/53 (69) 100 03/03/20 01:00 97 26 100/50 (67) 100 03/03/20 01:00 24 Mechanical Ventilator 100 03/03/20 01:00 102/54 03/03/20 00:30 99 28 96/48 (64) 100 03/03/20 00:00 100 03/03/20 00:00 98.5 102 28 103/55 (71) 100 03/03/20 00:00 102 28 103/55 (71) 100 03/03/20 00:00 Mechanical Ventilator 03/03/20 00:00 100 03/03/20 00:00 26 Mechanical Ventilator 100 03/03/20 00:00 95/59 03/02/20 23:27 117 34 100 03/02/20 23:10 105/70 03/02/20 23:00 24 Mechanical Ventilator 100 03/02/20 22:30 118 33 99/56 (70) 100 03/02/20 22:00 118 33 106/60 (75) 100 03/02/20 22:00 24 Mechanical Ventilator 100 03/02/20 21:30 108 31 114/60 (78) 100 03/02/20 21:00 114 34 120/65 (83) 100 03/02/20 21:00 20 Mechanical Ventilator 100 03/02/20 21:00 131/88 03/02/20 20:30 115 35 120/60 (80) 100 03/02/20 20:00 105 03/02/20 20:00 98.8 129 33 120/62 (81) 100 03/02/20 20:00 16 Mechanical Ventilator 100 03/02/20 20:00 134/74 03/02/20 20:00 100 03/02/20 20:00 Mechanical Ventilator 03/02/20 19:30 118 36 100 03/02/20 19:30 117 33 129/69 (89) 98 03/02/20 19:00 116 47 134/66 (88) 98 03/02/20 19:00 26 Mechanical Ventilator 100 03/02/20 19:00 132/74 03/02/20 18:30 113 34 131/73 (92) 100 03/02/20 18:00 34 Mechanical Ventilator 100 03/02/20 18:00 137/66 03/02/20 18:00 112 34 137/66 (89) 99 03/02/20 17:30 110 33 134/67 (89) 100 03/02/20 17:00 34 Mechanical Ventilator 100 03/02/20 17:00 128/68 03/02/20 17:00 96 34 128/68 (88) 100 03/02/20 16:30 94 34 125/70 (88) 100 03/02/20 16:00 100 03/02/20 16:00 Mechanical Ventilator 03/02/20 16:00 92 03/02/20 16:00 92 33 127/70 (89) 100 03/02/20 16:00 31 Mechanical Ventilator 100 03/02/20 16:00 127/70 03/02/20 15:30 80 27 100 03/02/20 15:30 90 31 104/65 (78) 100 03/02/20 15:00 29 Mechanical Ventilator 100 03/02/20 15:00 122/69 03/02/20 15:00 87 29 122/69 (86) 100 03/02/20 14:30 80 28 92/45 (61) 100 03/02/20 14:00 88 30 117/61 (79) 100 03/02/20 14:00 30 Mechanical Ventilator 100 03/02/20 14:00 110/60 Intake and Output 03/02/20 03/03/20 19:00 07:00 Intake Total 1090.24 ml 1200.4000 ml Output Total 760 ml 695 ml Balance 330.24 ml 505.4000 ml Free Water 0 ml 50 ml IV Total 980.24 ml 1030.4000 ml Tube Feeding 110 ml 120 ml Output Urine Total 475 ml 505 ml Chest Tube Drainage Total 285 ml 190 ml Laboratory Tests Test 03/03/20 03:50 White Blood Count 10.5 K/UL (4.8-10.8) Red Blood Count 2.78 M/UL (4.70-6.10) L Hemoglobin 8.6 G/DL (14.2-18.0) L Hematocrit 24.5 % (42.0-52.0) L Mean Corpuscular Volume 88 FL (80-99) Mean Corpuscular Hemoglobin 30.9 PG (27.0-31.0) Mean Corpuscular Hemoglobin Concent 35.1 G/DL (32.0-36.0) Red Cell Distribution Width 14.2 % (11.6-14.8) Platelet Count 37 K/UL (150-450) L Mean Platelet Volume 11.9 FL (6.5-10.1) H Neutrophils (%) (Auto) % (45.0-75.0) Lymphocytes (%) (Auto) % (20.0-45.0) Monocytes (%) (Auto) % (1.0-10.0) Eosinophils (%) (Auto) % (0.0-3.0) Basophils (%) (Auto) % (0.0-2.0) Differential Total Cells Counted 100 Neutrophils % (Manual) 86 % (45-75) H Lymphocytes % (Manual) 3 % (20-45) L Monocytes % (Manual) 11 % (1-10) H Eosinophils % (Manual) 0 % (0-3) Basophils % (Manual) 0 % (0-2) Band Neutrophils 0 % (0-8) Platelet Estimate Decreased L Platelet Morphology Normal Hypochromasia 2+ Anisocytosis 1+ Spherocytes 2+ Prothrombin Time 15.4 SEC (9.30-11.50) H Prothromb Time International Ratio 1.5 (0.9-1.1) H Activated Partial Thromboplast Time 33 SEC (23-33) Sodium Level 130 MMOL/L (136-145) L Potassium Level 4.5 MMOL/L (3.5-5.1) Chloride Level 95 MMOL/L (98-107) L Carbon Dioxide Level 29 MMOL/L (21-32) Anion Gap 6 mmol/L (5-15) Blood Urea Nitrogen 30 mg/dL (7-18) H Creatinine 0.9 MG/DL (0.55-1.30) Estimat Glomerular Filtration Rate > 60 mL/min (>60) Glucose Level 131 MG/DL (74-106) H Calcium Level 7.1 MG/DL (8.5-10.1) L Total Bilirubin 10.5 MG/DL (0.2-1.0) H Direct Bilirubin 8.8 MG/DL (0.0-0.3) H Aspartate Amino Transf (AST/SGOT) 52 U/L (15-37) H Alanine Aminotransferase (ALT/SGPT) 44 U/L (12-78) Alkaline Phosphatase 264 U/L (46-116) H Total Protein 5.1 G/DL (6.4-8.2) L Albumin 1.2 G/DL (3.4-5.0) L Globulin 3.9 g/dL Albumin/Globulin Ratio 0.3 (1.0-2.7) L Objective HEAD AND NECK: No JVD orally intubated. LUNGS: Decreased breath sounds and coarse rhonchi. SQ emphesyma Left chest tube is in CARDIOVASCULAR: Regular S1 and S2 with no gallop. ABDOMEN: Soft. EXTREMITIES: No pitting edema. Deric Garcia MD March 03, 2020 13:51
--- NOTE | 2020-03-03 18:32 | Surgery Progress Note ---
Surgery Progress Note Subjective Procedure Performed Left tube thoracostomy Additional Comments chest tube with 485cc serous output 24hr no leak cxr noted ill appearing on support levo / vaso tf at 10 Objective Last 24 Hour Vital Signs Date Time Temp Pulse Resp B/P (MAP) Pulse Ox O2 Delivery O2 Flow Rate FiO2 03/03/20 18:00 97 24 125/60 (81) 100 03/03/20 17:30 94 26 95/46 (62) 100 03/03/20 17:00 96 27 95/45 (62) 99 03/03/20 16:33 104 27 100 03/03/20 16:30 104 26 103/46 (65) 99 03/03/20 16:00 108 26 124/56 (78) 100 03/03/20 16:00 Mechanical Ventilator 03/03/20 16:00 105 03/03/20 16:00 20 Mechanical Ventilator 100 03/03/20 16:00 124/56 03/03/20 16:00 100 03/03/20 16:00 99.4 108 26 124/56 (78) 100 03/03/20 15:30 111 29 132/59 (83) 100 03/03/20 15:00 20 Mechanical Ventilator 100 03/03/20 15:00 128/58 03/03/20 15:00 105 30 124/56 (78) 100 03/03/20 14:55 114 28 100 03/03/20 14:45 137/81 03/03/20 14:30 127/58 03/03/20 14:30 115 30 127/57 (80) 03/03/20 14:15 127/57 03/03/20 14:00 117 32 140/59 (86) 03/03/20 14:00 20 Mechanical Ventilator 100 03/03/20 14:00 122/63 03/03/20 13:45 140/59 03/03/20 13:30 130/57 03/03/20 13:30 115 31 128/62 (84) 03/03/20 13:15 128/62 03/03/20 13:11 114 32 100 03/03/20 13:00 113 30 131/56 (81) 03/03/20 13:00 20 Mechanical Ventilator 100 03/03/20 13:00 130/58 03/03/20 12:45 131/56 03/03/20 12:36 132/58 03/03/20 12:33 132/60 03/03/20 12:30 107 30 137/58 (84) 03/03/20 12:00 Mechanical Ventilator 03/03/20 12:00 116 03/03/20 12:00 27 Mechanical Ventilator 100 03/03/20 12:00 127/60 03/03/20 12:00 100 03/03/20 12:00 98.4 98 25 105/48 (67) 03/03/20 11:30 105 25 105/49 (67) 03/03/20 11:12 104 24 100 03/03/20 11:00 24 Mechanical Ventilator 100 03/03/20 11:00 119/54 03/03/20 11:00 108 21 108/52 (70) 03/03/20 10:30 116 31 129/70 (89) 03/03/20 10:00 117 30 125/60 (81) 03/03/20 10:00 31 Mechanical Ventilator 100 03/03/20 10:00 126/62 03/03/20 09:30 121 32 126/63 (84) 03/03/20 09:00 33 Mechanical Ventilator 100 03/03/20 09:00 128/58 03/03/20 09:00 121 35 128/58 (81) 03/03/20 08:41 118 33 100 03/03/20 08:30 118 34 133/67 (89) 03/03/20 08:00 117 03/03/20 08:00 100 03/03/20 08:00 34 Mechanical Ventilator 100 03/03/20 08:00 122/72 03/03/20 08:00 99.0 117 36 137/69 (91) 97 03/03/20 08:00 Mechanical Ventilator 03/03/20 07:30 118 35 136/73 (94) 98 03/03/20 07:14 110 32 100 03/03/20 07:00 37 Mechanical Ventilator 100 03/03/20 07:00 127/65 03/03/20 07:00 112 33 127/65 (85) 100 03/03/20 06:45 112 34 121/66 (84) 100 03/03/20 06:30 114 33 124/64 (84) 100 03/03/20 06:30 34 23 03/03/20 06:15 114 34 126/62 (83) 100 03/03/20 06:00 37 Mechanical Ventilator 100 03/03/20 06:00 126/62 03/03/20 06:00 115 35 128/63 (84) 97 03/03/20 05:45 116 35 124/64 (84) 97 03/03/20 05:30 117 36 123/63 (83) 98 03/03/20 05:18 37 Mechanical Ventilator 100 03/03/20 05:18 116 129/68 03/03/20 05:15 115 38 129/68 (88) 92 03/03/20 05:00 115 37 127/63 (84) 94 03/03/20 05:00 37 Mechanical Ventilator 100 03/03/20 05:00 129/68 03/03/20 04:30 124/50 (74) 03/03/20 04:00 100 03/03/20 04:00 98.8 113 36 122/65 (84) 87 03/03/20 04:00 24 Mechanical Ventilator 100 03/03/20 04:00 129/67 03/03/20 04:00 Mechanical Ventilator 03/03/20 04:00 114 03/03/20 03:30 112 36 124/64 (84) 96 03/03/20 03:21 111 34 100 03/03/20 03:00 119 35 125/67 (86) 94 03/03/20 03:00 20 Mechanical Ventilator 100 03/03/20 03:00 118/65 03/03/20 02:31 24 100 03/03/20 02:30 112 33 132/67 (88) 100 03/03/20 02:00 26 Mechanical Ventilator 100 03/03/20 02:00 120/79 03/03/20 02:00 105 30 132/72 (92) 100 03/03/20 01:30 95 25 102/53 (69) 100 03/03/20 01:00 97 26 100/50 (67) 100 03/03/20 01:00 24 Mechanical Ventilator 100 03/03/20 01:00 102/54 03/03/20 00:30 99 28 96/48 (64) 100 03/03/20 00:00 100 03/03/20 00:00 98.5 102 28 103/55 (71) 100 03/03/20 00:00 102 28 103/55 (71) 100 03/03/20 00:00 Mechanical Ventilator 03/03/20 00:00 100 03/03/20 00:00 26 Mechanical Ventilator 100 03/03/20 00:00 95/59 03/02/20 23:27 117 34 100 03/02/20 23:10 105/70 03/02/20 23:00 24 Mechanical Ventilator 100 03/02/20 22:30 118 33 99/56 (70) 100 03/02/20 22:00 118 33 106/60 (75) 100 03/02/20 22:00 24 Mechanical Ventilator 100 03/02/20 21:30 108 31 114/60 (78) 100 03/02/20 21:00 114 34 120/65 (83) 100 03/02/20 21:00 20 Mechanical Ventilator 100 03/02/20 21:00 131/88 03/02/20 20:30 115 35 120/60 (80) 100 03/02/20 20:00 105 03/02/20 20:00 98.8 129 33 120/62 (81) 100 03/02/20 20:00 16 Mechanical Ventilator 100 03/02/20 20:00 134/74 03/02/20 20:00 100 03/02/20 20:00 Mechanical Ventilator 03/02/20 19:30 118 36 100 03/02/20 19:30 117 33 129/69 (89) 98 03/02/20 19:00 116 47 134/66 (88) 98 03/02/20 19:00 26 Mechanical Ventilator 100 03/02/20 19:00 132/74 I&O Intake and Output 03/02/20 03/03/20 19:00 07:00 Intake Total 1090.24 ml 1200.4000 ml Output Total 760 ml 695 ml Balance 330.24 ml 505.4000 ml Free Water 0 ml 50 ml IV Total 980.24 ml 1030.4000 ml Tube Feeding 110 ml 120 ml Output Urine Total 475 ml 505 ml Chest Tube Drainage Total 285 ml 190 ml Dressing: other Wound: other Drains: other Cardiovascular: RSR Respiratory: decreased breath sounds Abdomen: soft, present bowel sounds Extremities: no cyanosis Laboratory Tests Test 03/03/20 03:50 White Blood Count 10.5 K/UL (4.8-10.8) Red Blood Count 2.78 M/UL (4.70-6.10) L Hemoglobin 8.6 G/DL (14.2-18.0) L Hematocrit 24.5 % (42.0-52.0) L Mean Corpuscular Volume 88 FL (80-99) Mean Corpuscular Hemoglobin 30.9 PG (27.0-31.0) Mean Corpuscular Hemoglobin Concent 35.1 G/DL (32.0-36.0) Red Cell Distribution Width 14.2 % (11.6-14.8) Platelet Count 37 K/UL (150-450) L Mean Platelet Volume 11.9 FL (6.5-10.1) H Neutrophils (%) (Auto) % (45.0-75.0) Lymphocytes (%) (Auto) % (20.0-45.0) Monocytes (%) (Auto) % (1.0-10.0) Eosinophils (%) (Auto) % (0.0-3.0) Basophils (%) (Auto) % (0.0-2.0) Differential Total Cells Counted 100 Neutrophils % (Manual) 86 % (45-75) H Lymphocytes % (Manual) 3 % (20-45) L Monocytes % (Manual) 11 % (1-10) H Eosinophils % (Manual) 0 % (0-3) Basophils % (Manual) 0 % (0-2) Band Neutrophils 0 % (0-8) Platelet Estimate Decreased L Platelet Morphology Normal Hypochromasia 2+ Anisocytosis 1+ Spherocytes 2+ Prothrombin Time 15.4 SEC (9.30-11.50) H Prothromb Time International Ratio 1.5 (0.9-1.1) H Activated Partial Thromboplast Time 33 SEC (23-33) Sodium Level 130 MMOL/L (136-145) L Potassium Level 4.5 MMOL/L (3.5-5.1) Chloride Level 95 MMOL/L (98-107) L Carbon Dioxide Level 29 MMOL/L (21-32) Anion Gap 6 mmol/L (5-15) Blood Urea Nitrogen 30 mg/dL (7-18) H Creatinine 0.9 MG/DL (0.55-1.30) Estimat Glomerular Filtration Rate > 60 mL/min (>60) Glucose Level 131 MG/DL (74-106) H Calcium Level 7.1 MG/DL (8.5-10.1) L Total Bilirubin 10.5 MG/DL (0.2-1.0) H Direct Bilirubin 8.8 MG/DL (0.0-0.3) H Aspartate Amino Transf (AST/SGOT) 52 U/L (15-37) H Alanine Aminotransferase (ALT/SGPT) 44 U/L (12-78) Alkaline Phosphatase 264 U/L (46-116) H Total Protein 5.1 G/DL (6.4-8.2) L Albumin 1.2 G/DL (3.4-5.0) L Globulin 3.9 g/dL Albumin/Globulin Ratio 0.3 (1.0-2.7) L Plan Problems: (1) Pneumothorax Assessment & Plan: Patient with bilateral pneumothoraces right slightly larger than left but both are very small. On the left side there is significant amount of subcutaneous emphysema extensively more than anything on the right side. Given these findings and discussion with the patient's print support specialist and clinical decision making currently patient is extremely ill DIC thrombocytopenia critically ill and would only recommend placing 1 chest tube at this time given how high risk he is specially with COVID status. Given the x -ray findings and the extensive subtenons emphysema recommend placing a left- sided chest tube at this time with considerations for right side if necessary. Please see procedure note. Will follow and monitor 2. A.m. chest x-ray. Thank you Barber participate in patient's care AM CXR may need right chest tube Is a tiny sliver of a left apical pneumothorax, apex of the lung approximately 3 mm from the chest wall. There is a slightly larger but still small right apical pneumothorax, with the apex of the lung approximately 14 mm from the edge of the chest wall. There is extensive subcutaneous emphysema, particularly in the left anterior chest wall, but also seen in the bilateral supraclavicular fossae. The inferior right heart border is very well-defined. Uncertain as whether this represents a component of pneumomediastinum or a small medial pneumothorax. Stable tube and line positions, satisfactory. Bilateral infiltrates appear slightly improved as compared to the previous study. Impression: Since 02/26/2020, interim development of small bilateral pneumothoraces, right greater than left, and extensive subcutaneous emphysema. There may also be minimal pneumomediastinum. Bilateral infiltrates have improved somewhat in the interim. (2) Thrombocytopenia (3) Elevated LFTs (4) Diabetes mellitus (5) DVT (deep venous thrombosis) (6) History of hypertension (7) Cerebrovascular accident (CVA) (8) Alzheimer's dementia (9) Debility (10) Respiratory distress (11) Hypotension (12) Respiratory failure with hypoxia (13) Sepsis (14) Suspected COVID-19 virus infection [employer] March 03, 2020 18:32
--- NOTE | 2020-03-03 19:28 | General Progress Note ---
Assessment/Plan Assessment/Plan: HPI/CC: 74 y/o M from [place], PMH HTN, DMT2, dementia, Alzheimers dx, h/o CVA/TIA, h /o DVT, schizophrenia who presents for Fever. In the ED, pt found to be septic, Tm 100.9, RR22, WBC 7.3, Lactic acid 2.8, and ABG revealed acute hypoxic respiratory failure. Pt was intubated and will be admitted to ICU for acute hypoxic respiratory failure and pending COVID r/o. Assessment #Acute Hypoxic Resp Failure 2/2 COVID/HCAP+ #PTX s/p left Chest Tube #Septic Shock #DMII #Anemia of Chronic Dx #Dementia/Psych Hx Plan Appreciate Consultants Continue Vent management , Fentanyl for sedation, Currently on Levophed and Fredrick Chest tube management per surgery AB w/ Vancomycin, Zosyn, Doxycycline --> S/P Plaquenil Trend Predictive Markers Q3 days, Ddimer, CRP, Procalcitonin, Ferritin Weight based insulin dosing , adjust prn, goal blood sugar less than 180 DVT ppx, Tube Feeding, Supportive Measures, Vitamins Subjective Date patient seen: March 03, 2020 Allergies: Coded Allergies: No Known Allergies (Unverified , 01/19/19) Subjective Patient remains intubated, chest tube in left chest, requiring multiple pressor support. Critically ill w/ poor prognosis, appreciate consultants. Objective Last 24 Hour Vital Signs Date Time Temp Pulse Resp B/P (MAP) Pulse Ox O2 Delivery O2 Flow Rate FiO2 03/03/20 18:00 97 24 125/60 (81) 100 03/03/20 18:00 25 Mechanical Ventilator 100 03/03/20 18:00 125/59 03/03/20 17:30 94 26 95/46 (62) 100 03/03/20 17:00 27 Mechanical Ventilator 100 03/03/20 17:00 95/45 03/03/20 17:00 96 27 95/45 (62) 99 03/03/20 16:33 104 27 100 03/03/20 16:30 104 26 103/46 (65) 99 03/03/20 16:00 108 26 124/56 (78) 100 03/03/20 16:00 Mechanical Ventilator 03/03/20 16:00 105 03/03/20 16:00 20 Mechanical Ventilator 100 5/7/20 16:00 124/56 03/03/20 16:00 100 03/03/20 16:00 99.4 108 26 124/56 (78) 100 03/03/20 15:30 111 29 132/59 (83) 100 03/03/20 15:00 20 Mechanical Ventilator 100 03/03/20 15:00 128/58 03/03/20 15:00 105 30 124/56 (78) 100 03/03/20 14:55 114 28 100 03/03/20 14:45 137/81 03/03/20 14:30 127/58 03/03/20 14:30 115 30 127/57 (80) 03/03/20 14:15 127/57 03/03/20 14:00 117 32 140/59 (86) 03/03/20 14:00 20 Mechanical Ventilator 100 03/03/20 14:00 122/63 03/03/20 13:45 140/59 03/03/20 13:30 130/57 03/03/20 13:30 115 31 128/62 (84) 03/03/20 13:15 128/62 03/03/20 13:11 114 32 100 03/03/20 13:00 113 30 131/56 (81) 03/03/20 13:00 20 Mechanical Ventilator 100 03/03/20 13:00 130/58 03/03/20 12:45 131/56 03/03/20 12:36 132/58 03/03/20 12:33 132/60 03/03/20 12:30 107 30 137/58 (84) 03/03/20 12:00 Mechanical Ventilator 03/03/20 12:00 116 03/03/20 12:00 27 Mechanical Ventilator 100 03/03/20 12:00 127/60 03/03/20 12:00 100 03/03/20 12:00 98.4 98 25 105/48 (67) 03/03/20 11:30 105 25 105/49 (67) 03/03/20 11:12 104 24 100 03/03/20 11:00 24 Mechanical Ventilator 100 03/03/20 11:00 119/54 03/03/20 11:00 108 21 108/52 (70) 03/03/20 10:30 116 31 129/70 (89) 03/03/20 10:00 117 30 125/60 (81) 03/03/20 10:00 31 Mechanical Ventilator 100 03/03/20 10:00 126/62 03/03/20 09:30 121 32 126/63 (84) 03/03/20 09:00 33 Mechanical Ventilator 100 03/03/20 09:00 128/58 03/03/20 09:00 121 35 128/58 (81) 03/03/20 08:41 118 33 100 03/03/20 08:30 118 34 133/67 (89) 03/03/20 08:00 117 03/03/20 08:00 100 03/03/20 08:00 34 Mechanical Ventilator 100 03/03/20 08:00 122/72 03/03/20 08:00 99.0 117 36 137/69 (91) 97 03/03/20 08:00 Mechanical Ventilator 03/03/20 07:30 118 35 136/73 (94) 98 03/03/20 07:14 110 32 100 03/03/20 07:00 37 Mechanical Ventilator 100 03/03/20 07:00 127/65 03/03/20 07:00 112 33 127/65 (85) 100 03/03/20 06:45 112 34 121/66 (84) 100 03/03/20 06:30 114 33 124/64 (84) 100 03/03/20 06:30 34 23 03/03/20 06:15 114 34 126/62 (83) 100 03/03/20 06:00 37 Mechanical Ventilator 100 03/03/20 06:00 126/62 03/03/20 06:00 115 35 128/63 (84) 97 03/03/20 05:45 116 35 124/64 (84) 97 03/03/20 05:30 117 36 123/63 (83) 98 03/03/20 05:18 37 Mechanical Ventilator 100 03/03/20 05:18 116 129/68 03/03/20 05:15 115 38 129/68 (88) 92 03/03/20 05:00 115 37 127/63 (84) 94 03/03/20 05:00 37 Mechanical Ventilator 100 03/03/20 05:00 129/68 03/03/20 04:30 124/50 (74) 03/03/20 04:00 100 03/03/20 04:00 98.8 113 36 122/65 (84) 87 03/03/20 04:00 24 Mechanical Ventilator 100 03/03/20 04:00 129/67 03/03/20 04:00 Mechanical Ventilator 03/03/20 04:00 114 03/03/20 03:30 112 36 124/64 (84) 96 03/03/20 03:21 111 34 100 03/03/20 03:00 119 35 125/67 (86) 94 03/03/20 03:00 20 Mechanical Ventilator 100 03/03/20 03:00 118/65 03/03/20 02:31 24 100 03/03/20 02:30 112 33 132/67 (88) 100 03/03/20 02:00 26 Mechanical Ventilator 100 03/03/20 02:00 120/79 03/03/20 02:00 105 30 132/72 (92) 100 03/03/20 01:30 95 25 102/53 (69) 100 03/03/20 01:00 97 26 100/50 (67) 100 03/03/20 01:00 24 Mechanical Ventilator 100 03/03/20 01:00 102/54 03/03/20 00:30 99 28 96/48 (64) 100 03/03/20 00:00 100 03/03/20 00:00 98.5 102 28 103/55 (71) 100 03/03/20 00:00 102 28 103/55 (71) 100 03/03/20 00:00 Mechanical Ventilator 03/03/20 00:00 100 03/03/20 00:00 26 Mechanical Ventilator 100 03/03/20 00:00 95/59 03/02/20 23:27 117 34 100 03/02/20 23:10 105/70 03/02/20 23:00 24 Mechanical Ventilator 100 03/02/20 22:30 118 33 99/56 (70) 100 03/02/20 22:00 118 33 106/60 (75) 100 03/02/20 22:00 24 Mechanical Ventilator 100 03/02/20 21:30 108 31 114/60 (78) 100 03/02/20 21:00 114 34 120/65 (83) 100 03/02/20 21:00 20 Mechanical Ventilator 100 03/02/20 21:00 131/88 03/02/20 20:30 115 35 120/60 (80) 100 03/02/20 20:00 105 03/02/20 20:00 98.8 129 33 120/62 (81) 100 03/02/20 20:00 16 Mechanical Ventilator 100 03/02/20 20:00 134/74 03/02/20 20:00 100 03/02/20 20:00 Mechanical Ventilator 03/02/20 19:30 118 36 100 03/02/20 19:30 117 33 129/69 (89) 98 Intake and Output 03/02/20 03/03/20 19:00 07:00 Intake Total 1090.24 ml 1200.4000 ml Output Total 760 ml 695 ml Balance 330.24 ml 505.4000 ml Free Water 0 ml 50 ml IV Total 980.24 ml 1030.4000 ml Tube Feeding 110 ml 120 ml Output Urine Total 475 ml 505 ml Chest Tube Drainage Total 285 ml 190 ml Laboratory Tests 03/03/20 03:50: White Blood Count 10.5, Red Blood Count 2.78L, Hemoglobin 8.6L, Hematocrit 24.5L , Mean Corpuscular Volume 88, Mean Corpuscular Hemoglobin 30.9, Mean Corpuscular Hemoglobin Concent 35.1, Red Cell Distribution Width 14.2, Platelet Count 37L, Mean Platelet Volume 11.9H, Neutrophils (%) (Auto) , Lymphocytes (%) (Auto) , Monocytes (%) (Auto) , Eosinophils (%) (Auto) , Basophils (%) (Auto) , Differential Total Cells Counted 100, Neutrophils % (Manual) 86H, Lymphocytes % (Manual) 3L, Monocytes % (Manual) 11H, Eosinophils % (Manual) 0, Basophils % ( Manual) 0, Band Neutrophils 0, Platelet Estimate DecreasedL, Platelet Morphology Normal, Hypochromasia 2+, Anisocytosis 1+, Spherocytes 2+, Prothrombin Time 15.4H, Prothromb Time International Ratio 1.5H, Activated Partial Thromboplast Time 33, Sodium Level 130L, Potassium Level 4.5, Chloride Level 95L, Carbon Dioxide Level 29, Anion Gap 6, Blood Urea Nitrogen 30H, Creatinine 0.9, Estimat Glomerular Filtration Rate > 60, Glucose Level 131H, Calcium Level 7.1L, Total Bilirubin 10.5H, Direct Bilirubin 8.8H, Aspartate Amino Transf (AST/SGOT) 52H, Alanine Aminotransferase (ALT/SGPT) 44, Alkaline Phosphatase 264H, Total Protein 5.1L, Albumin 1.2L, Globulin 3.9, Albumin/ Globulin Ratio 0.3L Height (Feet): 5 Height (Inches): 5.00 Weight (Pounds): 121 General Appearance: other - intubated , sedated Cardiovascular: normal rate, regular rhythm, other - requiring pressor support Respiratory/Chest: other - on Vent, Left chest tube in place Abdomen: non tender, soft Extremities: swelling Edema: 1+ Generalized Neurologic: other - Sedated Alison Bah D.O. March 03, 2020 19:28
[2020-03-03] MEDS: Dyna-Hex 2% Top Sol 2oz TOPIC SCH (20:31)
[2020-03-04] VITALS (58 sets, daily range): BP systolic 77–265; BP diastolic 42–126
[2020-03-04] MEDS: Metoclopramide 10mg/2ml Inj IVP SCH ×4 (00:12→18:19)
[2020-03-04] MEDS: NovoLOG Insulin Flexpen SUBQ SCH ×4 (00:13→18:00)
[2020-03-04] MEDS: Piperacillin/Tazobactam 3.375 GM in D5W 110 ML IVPB SCH ×3 (00:13→18:19)
[2020-03-04] MEDS: fentaNYL Citrate 2,500 MCG in NS 200 ML IV SCH ×2 (01:49→20:12)
[2020-03-04] MEDS: Phenylephrine 50 MG in D5W 245 ML IV SCH (04:43)
[2020-03-04] MEDS: Vancomycin 1 GM in D5W 275 ML IVPB SCH ×2 (06:27→12:54)
[2020-03-04 06:28] LABS: ANION GAP 4 mmol/L (5-15); BLOOD UREA NITROGEN 28 mg/dL (7-18); CALCIUM 7.4 MG/DL (8.5-10.1); CARBON DIOXIDE 30 MMOL/L (21-32); CHLORIDE 95 MMOL/L (98-107); CREATININE 0.8 MG/DL (0.55-1.30); PHOSPHORUS 2.5 MG/DL (2.5-4.9); POTASSIUM 4.2 MMOL/L (3.5-5.1); SODIUM 129 MMOL/L (136-145)
[2020-03-04] MEDS: Pantoprazole Inj IVP SCH (09:04)
[2020-03-04] MEDS: Doxycycline Monohydrate 100mg ORAL SCH (09:04)
--- NOTE | 2020-03-04 09:21 | General Progress Note ---
Assessment/Plan Assessment/Plan: HPI/CC: 74 y/o M from [place], PMH HTN, DMT2, dementia, Alzheimers dx, h/o CVA/TIA, h /o DVT, schizophrenia who presents for Fever. In the ED, pt found to be septic, Tm 100.9, RR22, WBC 7.3, Lactic acid 2.8, and ABG revealed acute hypoxic respiratory failure. Pt was intubated and will be admitted to ICU for acute hypoxic respiratory failure and pending COVID r/o. Assessment #Acute Hypoxic Resp Failure 2/2 COVID/HCAP+ #PTX s/p left Chest Tube #Septic Shock #DMII #Anemia of Chronic Dx #Dementia/Psych Hx Plan Appreciate Consultants Continue Vent management , Fentanyl for sedation, Currently on Levophed and Fredrick Chest tube management per surgery AB w/ Vancomycin, Zosyn, Doxycycline --> S/P Plaquenil Trend Predictive Markers Q3 days, Ddimer, CRP, Procalcitonin, Ferritin Weight based insulin dosing , adjust prn, goal blood sugar less than 180 DVT ppx, Tube Feeding, Supportive Measures, Vitamins Subjective Date patient seen: March 04, 2020 Time patient seen: 09:20 Allergies: Coded Allergies: No Known Allergies (Unverified , 01/19/19) Subjective Patient remains intubated, chest tube in left chest, requiring multiple pressor support. Critically ill w/ poor prognosis, appreciate consultants. No Acute overnight events Objective Last 24 Hour Vital Signs Date Time Temp Pulse Resp B/P (MAP) Pulse Ox O2 Delivery O2 Flow Rate FiO2 03/04/20 08:00 80 03/04/20 07:00 28 Mechanical Ventilator 80 03/04/20 07:00 119/68 03/04/20 07:00 92 22 117/60 (79) 100 03/04/20 06:59 100 22 80 03/04/20 06:30 90 21 03/04/20 06:30 91 21 106/58 (74) 98 03/04/20 06:00 21 Mechanical Ventilator 80 03/04/20 06:00 106/58 03/04/20 06:00 91 22 114/53 (73) 100 03/04/20 05:30 87 20 99/52 (68) 100 03/04/20 05:00 92 22 101/58 (72) 100 03/04/20 05:00 24 Mechanical Ventilator 100 03/04/20 05:00 101/58 03/04/20 04:43 90 90/56 03/04/20 04:30 88 22 102/51 (68) 100 03/04/20 04:00 22 Mechanical Ventilator 100 03/04/20 04:00 110/68 03/04/20 04:00 80 03/04/20 04:00 88 03/04/20 04:00 98.3 83 23 110/68 (82) 100 03/04/20 04:00 Mechanical Ventilator 03/04/20 03:30 81 22 131/53 (79) 100 03/04/20 03:30 85 26 80 03/04/20 03:00 85 20 91/46 (61) 100 03/04/20 03:00 24 Mechanical Ventilator 100 03/04/20 03:00 91/46 03/04/20 02:30 89 20 105/59 (74) 100 03/04/20 02:26 99.1 03/04/20 02:00 24 Mechanical Ventilator 100 03/04/20 02:00 108/57 03/04/20 02:00 91 21 108/57 (74) 100 03/04/20 01:49 28 Mechanical Ventilator 100 03/04/20 01:30 90 20 105/58 (74) 100 03/04/20 01:00 93 21 110/51 (70) 100 03/04/20 01:00 26 Mechanical Ventilator 100 03/04/20 01:00 21 Mechanical Ventilator 100 03/04/20 01:00 110/51 03/04/20 01:00 110/51 03/04/20 00:30 90 20 88/45 (59) 100 03/04/20 00:00 Mechanical Ventilator 03/04/20 00:00 24 Mechanical Ventilator 100 03/04/20 00:00 110/62 03/04/20 00:00 99.1 95 21 123/59 (80) 100 03/03/20 23:30 94 23 131/63 (85) 100 03/03/20 23:30 94 23 100 03/03/20 23:00 25 Mechanical Ventilator 100 03/03/20 23:00 129/65 03/03/20 23:00 96 24 129/65 (86) 100 03/03/20 22:30 93 24 124/60 (81) 100 03/03/20 22:00 26 Mechanical Ventilator 100 03/03/20 22:00 99/48 03/03/20 22:00 93 23 99/48 (65) 100 03/03/20 21:30 98 26 120/58 (78) 100 03/03/20 21:00 99.9 101 29 126/60 (82) 100 03/03/20 21:00 29 Mechanical Ventilator 100 03/03/20 21:00 126/60 03/03/20 20:30 100 25 119/56 (77) 100 03/03/20 20:00 Mechanical Ventilator 03/03/20 20:00 28 Mechanical Ventilator 100 03/03/20 20:00 126/59 03/03/20 20:00 102 03/03/20 20:00 101 28 126/59 (81) 100 03/03/20 20:00 100 03/03/20 19:30 98 21 100 03/03/20 19:30 101 27 122/60 (80) 100 03/03/20 19:00 100 25 120/58 (78) 100 03/03/20 19:00 25 Mechanical Ventilator 100 03/03/20 19:00 120/58 03/03/20 18:30 99 24 125/59 (81) 100 03/03/20 18:00 97 24 125/60 (81) 100 03/03/20 18:00 25 Mechanical Ventilator 100 03/03/20 18:00 125/59 03/03/20 17:30 94 26 95/46 (62) 100 03/03/20 17:00 27 Mechanical Ventilator 100 03/03/20 17:00 95/45 03/03/20 17:00 96 27 95/45 (62) 99 03/03/20 16:33 104 27 100 03/03/20 16:30 104 26 103/46 (65) 99 03/03/20 16:00 108 26 124/56 (78) 100 03/03/20 16:00 Mechanical Ventilator 03/03/20 16:00 105 03/03/20 16:00 20 Mechanical Ventilator 100 03/03/20 16:00 124/56 03/03/20 16:00 100 03/03/20 16:00 99.4 108 26 124/56 (78) 100 03/03/20 15:30 111 29 132/59 (83) 100 03/03/20 15:00 20 Mechanical Ventilator 100 03/03/20 15:00 128/58 03/03/20 15:00 105 30 124/56 (78) 100 03/03/20 14:55 114 28 100 03/03/20 14:45 137/81 03/03/20 14:30 127/58 03/03/20 14:30 115 30 127/57 (80) 03/03/20 14:15 127/57 03/03/20 14:00 117 32 140/59 (86) 03/03/20 14:00 20 Mechanical Ventilator 100 03/03/20 14:00 122/63 03/03/20 13:45 140/59 03/03/20 13:30 130/57 03/03/20 13:30 115 31 128/62 (84) 03/03/20 13:15 128/62 03/03/20 13:11 114 32 100 03/03/20 13:00 113 30 131/56 (81) 03/03/20 13:00 20 Mechanical Ventilator 100 03/03/20 13:00 130/58 03/03/20 12:45 131/56 03/03/20 12:36 132/58 03/03/20 12:33 132/60 03/03/20 12:30 107 30 137/58 (84) 03/03/20 12:00 Mechanical Ventilator 03/03/20 12:00 116 03/03/20 12:00 27 Mechanical Ventilator 100 03/03/20 12:00 127/60 03/03/20 12:00 100 03/03/20 12:00 98.4 98 25 105/48 (67) 03/03/20 11:30 105 25 105/49 (67) 03/03/20 11:12 104 24 100 03/03/20 11:00 24 Mechanical Ventilator 100 03/03/20 11:00 119/54 03/03/20 11:00 108 21 108/52 (70) 03/03/20 10:30 116 31 129/70 (89) 03/03/20 10:00 117 30 125/60 (81) 03/03/20 10:00 31 Mechanical Ventilator 100 03/03/20 10:00 126/62 03/03/20 09:30 121 32 126/63 (84) Intake and Output 03/03/20 03/04/20 19:00 07:00 Intake Total 1356.000 ml 1545.916 ml Output Total 730 ml 701 ml Balance 626.000 ml 844.916 ml Free Water 250 ml 120 ml IV Total 996.000 ml 1380.916 ml Tube Feeding 110 ml 45 ml Output Urine Total 600 ml 700 ml Stool Total 1 ml Chest Tube Drainage Total 130 ml # Bowel Movements 1 Laboratory Tests 03/04/20 03:30: Sodium Level 129L, Potassium Level 4.2, Chloride Level 95L, Carbon Dioxide Level 30, Anion Gap 4L, Blood Urea Nitrogen 28H, Creatinine 0.8, Estimat Glomerular Filtration Rate > 60, Glucose Level 121H, Calcium Level 7.4L, Phosphorus Level 2.5, Magnesium Level 2.2 Height (Feet): 5 Height (Inches): 5.00 Weight (Pounds): 143 Objective General Appearance: other - intubated , sedated Cardiovascular: normal rate, regular rhythm, other - requiring pressor support Respiratory/Chest: other - on Vent, Left chest tube in place Abdomen: non tender, soft Extremities: swelling Edema: 1+ Generalized Neurologic: other - Sedated Alison Bah D.O. March 04, 2020 09:21
--- NOTE | 2020-03-04 11:49 | General Progress Note ---
Assessment/Plan Problem List: (1) Elevated LFTs ICD Codes: R79.89 - Other specified abnormal findings of blood chemistry SNOMED: 169250946, 037987745 (2) Thrombocytopenia ICD Codes: D69.6 - Thrombocytopenia, unspecified SNOMED: 445896368 (3) Suspected COVID-19 virus infection ICD Codes: Z20.828 - Contact with and (suspected) exposure to other viral communicable diseases SNOMED: 859585374 (4) Respiratory failure with hypoxia ICD Codes: J96.91 - Respiratory failure, unspecified with hypoxia SNOMED: 30847293157151677 Qualifiers: Qualified Codes: J96.01 - Acute respiratory failure with hypoxia (5) Hypotension ICD Codes: I95.9 - Hypotension, unspecified SNOMED: 70101925 Qualifiers: Qualified Codes: I95.9 - Hypotension, unspecified (6) Alzheimer's dementia ICD Codes: G30.9 - Alzheimer's disease, unspecified; F02.80 - Dementia in other diseases classified elsewhere without behavioral disturbance SNOMED: 77779685 (7) Cerebrovascular accident (CVA) ICD Codes: I63.9 - Cerebral infarction, unspecified SNOMED: 911427166 (8) History of hypertension ICD Codes: Z86.79 - Personal history of other diseases of the circulatory system SNOMED: 538824634 (9) Diabetes mellitus ICD Codes: E11.9 - Type 2 diabetes mellitus without complications SNOMED: 59287000 Assessment/Plan: reglan monitor for residuals fu labs abx per ID current TF at 10 cc, poor prognosis Subjective ROS Limited/Unobtainable: No Allergies: Coded Allergies: No Known Allergies (Unverified , 01/19/19) Objective Last 24 Hour Vital Signs Date Time Temp Pulse Resp B/P (MAP) Pulse Ox O2 Delivery O2 Flow Rate FiO2 03/04/20 11:20 106 20 80 03/04/20 11:00 108 24 152/92 (112) 99 03/04/20 10:00 101 24 93/80 (84) 99 03/04/20 10:00 21 Mechanical Ventilator 80 03/04/20 10:00 93/80 03/04/20 09:23 96 22 80 03/04/20 09:00 94 21 105/54 (71) 100 03/04/20 09:00 21 Mechanical Ventilator 80 5/8/20 09:00 105/54 5/8/20 08:30 97 25 110/51 (70) 99 03/04/20 08:00 98.6 98 29 115/55 (75) 99 03/04/20 08:00 93 03/04/20 08:00 22 Mechanical Ventilator 80 03/04/20 08:00 115/55 03/04/20 08:00 Mechanical Ventilator 03/04/20 08:00 80 03/04/20 07:00 28 Mechanical Ventilator 80 03/04/20 07:00 119/68 03/04/20 07:00 92 22 117/60 (79) 100 03/04/20 06:59 100 22 80 03/04/20 06:30 90 21 03/04/20 06:30 91 21 106/58 (74) 98 03/04/20 06:00 21 Mechanical Ventilator 80 03/04/20 06:00 106/58 03/04/20 06:00 91 22 114/53 (73) 100 03/04/20 05:30 87 20 99/52 (68) 100 03/04/20 05:00 92 22 101/58 (72) 100 03/04/20 05:00 24 Mechanical Ventilator 100 03/04/20 05:00 101/58 03/04/20 04:43 90 90/56 03/04/20 04:30 88 22 102/51 (68) 100 03/04/20 04:00 22 Mechanical Ventilator 100 03/04/20 04:00 110/68 03/04/20 04:00 80 03/04/20 04:00 88 03/04/20 04:00 98.3 83 23 110/68 (82) 100 03/04/20 04:00 Mechanical Ventilator 03/04/20 03:30 81 22 131/53 (79) 100 03/04/20 03:30 85 26 80 03/04/20 03:00 85 20 91/46 (61) 100 03/04/20 03:00 24 Mechanical Ventilator 100 03/04/20 03:00 91/46 03/04/20 02:30 89 20 105/59 (74) 100 03/04/20 02:26 99.1 03/04/20 02:00 24 Mechanical Ventilator 100 03/04/20 02:00 108/57 03/04/20 02:00 91 21 108/57 (74) 100 03/04/20 01:49 28 Mechanical Ventilator 100 03/04/20 01:30 90 20 105/58 (74) 100 03/04/20 01:00 93 21 110/51 (70) 100 03/04/20 01:00 26 Mechanical Ventilator 100 03/04/20 01:00 21 Mechanical Ventilator 100 03/04/20 01:00 110/51 03/04/20 01:00 110/51 03/04/20 00:30 90 20 88/45 (59) 100 03/04/20 00:00 Mechanical Ventilator 03/04/20 00:00 24 Mechanical Ventilator 100 03/04/20 00:00 110/62 03/04/20 00:00 99.1 95 21 123/59 (80) 100 03/03/20 23:30 94 23 131/63 (85) 100 03/03/20 23:30 94 23 100 03/03/20 23:00 25 Mechanical Ventilator 100 03/03/20 23:00 129/65 03/03/20 23:00 96 24 129/65 (86) 100 03/03/20 22:30 93 24 124/60 (81) 100 03/03/20 22:00 26 Mechanical Ventilator 100 03/03/20 22:00 99/48 03/03/20 22:00 93 23 99/48 (65) 100 03/03/20 21:30 98 26 120/58 (78) 100 03/03/20 21:00 99.9 101 29 126/60 (82) 100 03/03/20 21:00 29 Mechanical Ventilator 100 03/03/20 21:00 126/60 03/03/20 20:30 100 25 119/56 (77) 100 03/03/20 20:00 Mechanical Ventilator 03/03/20 20:00 28 Mechanical Ventilator 100 03/03/20 20:00 126/59 03/03/20 20:00 102 03/03/20 20:00 101 28 126/59 (81) 100 03/03/20 20:00 100 03/03/20 19:30 98 21 100 03/03/20 19:30 101 27 122/60 (80) 100 03/03/20 19:00 100 25 120/58 (78) 100 03/03/20 19:00 25 Mechanical Ventilator 100 03/03/20 19:00 120/58 03/03/20 18:30 99 24 125/59 (81) 100 03/03/20 18:00 97 24 125/60 (81) 100 03/03/20 18:00 25 Mechanical Ventilator 100 03/03/20 18:00 125/59 03/03/20 17:30 94 26 95/46 (62) 100 03/03/20 17:00 27 Mechanical Ventilator 100 03/03/20 17:00 95/45 03/03/20 17:00 96 27 95/45 (62) 99 03/03/20 16:33 104 27 100 03/03/20 16:30 104 26 103/46 (65) 99 03/03/20 16:00 108 26 124/56 (78) 100 03/03/20 16:00 Mechanical Ventilator 03/03/20 16:00 105 03/03/20 16:00 20 Mechanical Ventilator 100 03/03/20 16:00 124/56 03/03/20 16:00 100 03/03/20 16:00 99.4 108 26 124/56 (78) 100 03/03/20 15:30 111 29 132/59 (83) 100 03/03/20 15:00 20 Mechanical Ventilator 100 03/03/20 15:00 128/58 03/03/20 15:00 105 30 124/56 (78) 100 03/03/20 14:55 114 28 100 03/03/20 14:45 137/81 03/03/20 14:30 127/58 03/03/20 14:30 115 30 127/57 (80) 03/03/20 14:15 127/57 03/03/20 14:00 117 32 140/59 (86) 03/03/20 14:00 20 Mechanical Ventilator 100 03/03/20 14:00 122/63 03/03/20 13:45 140/59 03/03/20 13:30 130/57 03/03/20 13:30 115 31 128/62 (84) 03/03/20 13:15 128/62 03/03/20 13:11 114 32 100 03/03/20 13:00 113 30 131/56 (81) 03/03/20 13:00 20 Mechanical Ventilator 100 03/03/20 13:00 130/58 03/03/20 12:45 131/56 03/03/20 12:36 132/58 03/03/20 12:33 132/60 03/03/20 12:30 107 30 137/58 (84) 03/03/20 12:00 Mechanical Ventilator 03/03/20 12:00 116 03/03/20 12:00 27 Mechanical Ventilator 100 03/03/20 12:00 127/60 03/03/20 12:00 100 03/03/20 12:00 98.4 98 25 105/48 (67) Intake and Output 03/03/20 03/04/20 19:00 07:00 Intake Total 1356.000 ml 1545.916 ml Output Total 730 ml 701 ml Balance 626.000 ml 844.916 ml Free Water 250 ml 120 ml IV Total 996.000 ml 1380.916 ml Tube Feeding 110 ml 45 ml Output Urine Total 600 ml 700 ml Stool Total 1 ml Chest Tube Drainage Total 130 ml # Bowel Movements 1 Laboratory Tests 03/04/20 03:30: Sodium Level 129L, Potassium Level 4.2, Chloride Level 95L, Carbon Dioxide Level 30, Anion Gap 4L, Blood Urea Nitrogen 28H, Creatinine 0.8, Estimat Glomerular Filtration Rate > 60, Glucose Level 121H, Calcium Level 7.4L, Phosphorus Level 2.5, Magnesium Level 2.2 Height (Feet): 5 Height (Inches): 5.00 Weight (Pounds): 143 General Appearance: no apparent distress EENT: normal ENT inspection Neck: supple Cardiovascular: normal rate Respiratory/Chest: decreased breath sounds Abdomen: normal bowel sounds, non tender, soft Extremities: non-tender Domo Howe MD March 04, 2020 11:49
--- NOTE | 2020-03-04 11:59 | Pulmonology Progress Note ---
Subjective ROS Limited/Unobtainable: No Interval Events: Remains intubtaed; was intubated on 02/22/20 Constitutional: Reports: other - on vent, pressors, + chest tube ; Denies: fever HEENT: Repors: no symptoms Respiratory: Reports: no symptoms Cardiovascular: Reports: no symptoms Gastrointestinal/Abdominal: Denies: nausea, vomiting, diarrhea Genitourinary: Reports: no symptoms Psychiatric: Reports: other - NA Skin: Denies: rash Endocrine: Reports: no symptoms Musculoskeletal: Reports: other - NA Allergies: Coded Allergies: No Known Allergies (Unverified , 01/19/19) All Systems: reviewed and negative except above Subjective seen and evaluated Discussed with RN Left chest tube placed by surgery Objective Last 24 Hour Vital Signs Date Time Temp Pulse Resp B/P (MAP) Pulse Ox O2 Delivery O2 Flow Rate FiO2 03/04/20 11:20 106 20 80 03/04/20 11:00 108 24 152/92 (112) 99 03/04/20 10:00 101 24 93/80 (84) 99 03/04/20 10:00 21 Mechanical Ventilator 80 03/04/20 10:00 93/80 03/04/20 09:23 96 22 80 03/04/20 09:00 94 21 105/54 (71) 100 03/04/20 09:00 21 Mechanical Ventilator 80 03/04/20 09:00 105/54 03/04/20 08:30 97 25 110/51 (70) 99 03/04/20 08:00 98.6 98 29 115/55 (75) 99 03/04/20 08:00 93 03/04/20 08:00 22 Mechanical Ventilator 80 03/04/20 08:00 115/55 03/04/20 08:00 Mechanical Ventilator 03/04/20 08:00 80 03/04/20 07:00 28 Mechanical Ventilator 80 03/04/20 07:00 119/68 03/04/20 07:00 92 22 117/60 (79) 100 03/04/20 06:59 100 22 80 03/04/20 06:30 90 21 03/04/20 06:30 91 21 106/58 (74) 98 03/04/20 06:00 21 Mechanical Ventilator 80 03/04/20 06:00 106/58 03/04/20 06:00 91 22 114/53 (73) 100 03/04/20 05:30 87 20 99/52 (68) 100 03/04/20 05:00 92 22 101/58 (72) 100 03/04/20 05:00 24 Mechanical Ventilator 100 03/04/20 05:00 101/58 03/04/20 04:43 90 90/56 03/04/20 04:30 88 22 102/51 (68) 100 03/04/20 04:00 22 Mechanical Ventilator 100 03/04/20 04:00 110/68 03/04/20 04:00 80 03/04/20 04:00 88 03/04/20 04:00 98.3 83 23 110/68 (82) 100 03/04/20 04:00 Mechanical Ventilator 03/04/20 03:30 81 22 131/53 (79) 100 03/04/20 03:30 85 26 80 03/04/20 03:00 85 20 91/46 (61) 100 03/04/20 03:00 24 Mechanical Ventilator 100 03/04/20 03:00 91/46 03/04/20 02:30 89 20 105/59 (74) 100 03/04/20 02:26 99.1 03/04/20 02:00 24 Mechanical Ventilator 100 03/04/20 02:00 108/57 03/04/20 02:00 91 21 108/57 (74) 100 03/04/20 01:49 28 Mechanical Ventilator 100 03/04/20 01:30 90 20 105/58 (74) 100 03/04/20 01:00 93 21 110/51 (70) 100 03/04/20 01:00 26 Mechanical Ventilator 100 03/04/20 01:00 21 Mechanical Ventilator 100 03/04/20 01:00 110/51 03/04/20 01:00 110/51 03/04/20 00:30 90 20 88/45 (59) 100 03/04/20 00:00 Mechanical Ventilator 03/04/20 00:00 24 Mechanical Ventilator 100 03/04/20 00:00 110/62 03/04/20 00:00 99.1 95 21 123/59 (80) 100 03/03/20 23:30 94 23 131/63 (85) 100 03/03/20 23:30 94 23 100 03/03/20 23:00 25 Mechanical Ventilator 100 03/03/20 23:00 129/65 03/03/20 23:00 96 24 129/65 (86) 100 03/03/20 22:30 93 24 124/60 (81) 100 03/03/20 22:00 26 Mechanical Ventilator 100 03/03/20 22:00 99/48 03/03/20 22:00 93 23 99/48 (65) 100 03/03/20 21:30 98 26 120/58 (78) 100 03/03/20 21:00 99.9 101 29 126/60 (82) 100 03/03/20 21:00 29 Mechanical Ventilator 100 03/03/20 21:00 126/60 03/03/20 20:30 100 25 119/56 (77) 100 03/03/20 20:00 Mechanical Ventilator 03/03/20 20:00 28 Mechanical Ventilator 100 03/03/20 20:00 126/59 03/03/20 20:00 102 03/03/20 20:00 101 28 126/59 (81) 100 03/03/20 20:00 100 03/03/20 19:30 98 21 100 03/03/20 19:30 101 27 122/60 (80) 100 03/03/20 19:00 100 25 120/58 (78) 100 03/03/20 19:00 25 Mechanical Ventilator 100 03/03/20 19:00 120/58 03/03/20 18:30 99 24 125/59 (81) 100 03/03/20 18:00 97 24 125/60 (81) 100 03/03/20 18:00 25 Mechanical Ventilator 100 03/03/20 18:00 125/59 03/03/20 17:30 94 26 95/46 (62) 100 03/03/20 17:00 27 Mechanical Ventilator 100 03/03/20 17:00 95/45 03/03/20 17:00 96 27 95/45 (62) 99 03/03/20 16:33 104 27 100 03/03/20 16:30 104 26 103/46 (65) 99 03/03/20 16:00 108 26 124/56 (78) 100 03/03/20 16:00 Mechanical Ventilator 03/03/20 16:00 105 03/03/20 16:00 20 Mechanical Ventilator 100 03/03/20 16:00 124/56 03/03/20 16:00 100 03/03/20 16:00 99.4 108 26 124/56 (78) 100 03/03/20 15:30 111 29 132/59 (83) 100 03/03/20 15:00 20 Mechanical Ventilator 100 03/03/20 15:00 128/58 03/03/20 15:00 105 30 124/56 (78) 100 03/03/20 14:55 114 28 100 03/03/20 14:45 137/81 03/03/20 14:30 127/58 03/03/20 14:30 115 30 127/57 (80) 03/03/20 14:15 127/57 03/03/20 14:00 117 32 140/59 (86) 03/03/20 14:00 20 Mechanical Ventilator 100 03/03/20 14:00 122/63 03/03/20 13:45 140/59 03/03/20 13:30 130/57 03/03/20 13:30 115 31 128/62 (84) 03/03/20 13:15 128/62 03/03/20 13:11 114 32 100 03/03/20 13:00 113 30 131/56 (81) 03/03/20 13:00 20 Mechanical Ventilator 100 03/03/20 13:00 130/58 03/03/20 12:45 131/56 03/03/20 12:36 132/58 03/03/20 12:33 132/60 03/03/20 12:30 107 30 137/58 (84) 03/03/20 12:00 Mechanical Ventilator 03/03/20 12:00 116 03/03/20 12:00 27 Mechanical Ventilator 100 03/03/20 12:00 127/60 03/03/20 12:00 100 03/03/20 12:00 98.4 98 25 105/48 (67) Intake and Output 03/03/20 03/04/20 19:00 07:00 Intake Total 1356.000 ml 1545.916 ml Output Total 730 ml 701 ml Balance 626.000 ml 844.916 ml Free Water 250 ml 120 ml IV Total 996.000 ml 1380.916 ml Tube Feeding 110 ml 45 ml Output Urine Total 600 ml 700 ml Stool Total 1 ml Chest Tube Drainage Total 130 ml # Bowel Movements 1 General Appearance: no acute distress HEENT: normocephalic, atraumatic, anicteric, no JVD, other - oral - intubated Respiratory/Chest: chest wall non-tender, decreased breath sounds, other - hAS SUB CUT EMPHYSEMA LEWFT SIDE Cardiovascular: normal peripheral pulses Abdomen: normal bowel sounds, soft, non tender, no organomegaly Genitourinary: other - + rush - urine slt cloudy Extremities: no cyanosis Skin: no rash Neurologic/Psychiatric: other - lethargic, weak Lymphatic: no neck adenopathy Musculoskeletal: no effusion Laboratory Tests 03/04/20 03:30: Sodium Level 129L, Potassium Level 4.2, Chloride Level 95L, Carbon Dioxide Level 30, Anion Gap 4L, Blood Urea Nitrogen 28H, Creatinine 0.8, Estimat Glomerular Filtration Rate > 60, Glucose Level 121H, Calcium Level 7.4L, Phosphorus Level 2.5, Magnesium Level 2.2 Current Medications Medications (Trade) Dose Ordered Sig/Cirilo Route PRN Reason Start Time Stop Time Status Last Admin Dose Admin Acetaminophen (Tylenol) 650 mg Q4H PRN ORAL Fever 02/22/20 14:15 03/23/20 14:14 02/28/20 17:52 Acetaminophen (Tylenol) 650 mg Q4H PRN ORAL Mild Pain (Pain Scale 1-3) 02/22/20 14:15 03/23/20 14:14 03/03/20 17:31 Acetaminophen (Tylenol) 650 mg Q4H PRN RECTAL Mild Pain (Pain Scale 1-3) 02/22/20 14:15 03/23/20 14:14 02/22/20 21:28 Acetaminophen (Tylenol) 650 mg Q4H PRN RECTAL FEVER 02/22/20 14:15 03/23/20 14:14 Chlorhexidine Gluconate (Maira-Hex 2%) 1 applic DAILY@1999 TOPIC 02/23/20 20:00 05/23/20 19:59 03/03/20 20:31 Dextrose (Dextrose 50%) 25 ml Q30M PRN IV Hypoglycemia 02/23/20 09:00 05/23/20 08:59 Dextrose (Dextrose 50%) 50 ml Q30M PRN IV Hypoglycemia 02/23/20 09:00 05/23/20 08:59 Diphenhydramine HCl (Benadryl) 25 mg Q6H PRN ORAL Itching/Pruritis 02/22/20 14:15 03/23/20 14:14 02/26/20 01:34 Doxycycline Monohydrate (Doxycycline Monohydrate) 100 mg EVERY 12 HOURS ORAL 03/01/20 09:00 03/08/20 08:59 03/04/20 09:04 Fentanyl Citrate 2500 mcg/Sodium Chloride 250 ml @ 0 mls/hr Q24H IV 03/01/20 19:45 03/08/20 19:44 03/04/20 01:49 Insulin Aspart (NovoLOG) Q6HR SUBQ 02/28/20 18:00 05/28/20 17:59 03/04/20 00:13 Metoclopramide HCl (Reglan) 5 mg Q6HR IVP 03/01/20 12:00 03/31/20 11:59 03/04/20 06:27 Midazolam HCl 100 ml @ 0 mls/hr Q24H IV 02/26/20 15:06 05/26/20 15:05 02/26/20 15:48 Norepinephrine Bitartrate 8 mg/ Dextrose 500 ml @ 0 mls/hr Q24H IV 02/23/20 19:01 03/24/20 19:00 03/03/20 12:36 Pantoprazole (Protonix) 40 mg DAILY IVP 02/23/20 09:30 03/24/20 09:29 03/04/20 09:04 Phenylephrine HCl 50 mg/Dextrose 250 ml @ 6 mls/hr Q24H IV 02/29/20 10:45 03/30/20 10:44 03/04/20 04:43 Piperacillin Sod/ Tazobactam Sod 3.375 gm/Dextrose 110 ml @ 27.5 mls/hr Q8H IVPB 03/01/20 01:00 03/08/20 00:59 03/04/20 09:04 Vancomycin HCl (Vanco rx to dose) 1 ea DAILY PRN MISC Per rx protocol 02/22/20 14:30 03/23/20 14:29 Vancomycin HCl 1 gm/Dextrose 275 ml @ 183.708 mls/hr Q8H IVPB 03/02/20 21:00 03/07/20 20:59 03/04/20 06:27 Assessment/Plan Assessment/Plan IMPRESSION: 1. Respiratory failure. 2. Bilateral pneumonia. + COVID 19 3. Pulmonary edema. 4. Diabetes mellitus. 5. Left PTX with subcut emphysema; s/p chest tube DISCUSSION: Positive COVID 19 pcr The patient is critically ill at this point in time. Poor prognosis Increasing pressor requirements Noted Cardiology consultation. Continue broad-spectrum antibiotics. Continue respiratory support; will adjust vent settings I will follow carefully. S/p chest tube Continue Ac mode 100 FiO2 and PEEP 5 SaO2 97% Andrea Bland M.D. Andrea Bland MD March 04, 2020 11:59
--- NOTE | 2020-03-04 12:14 | Hematology/Onc Progress Note ---
Assessment/Plan Assessment/Plan # Severe thrombocytopenia - potential causes multifactorial, evaluate liver and viral etiologies to begin, in this particular case, given mosf, is due to [id number], has had hyperbilirubinemia, has received heparin and zosyn both culprits as well --> Hep panel and HIV ordered -- neg --> US abd to evaluate for cirrhosis and hsm ordered ->when covid is negative --> Peripheral smear ordered to evaluate for blasts /schistocytes (ALSO HAVE Ordered for DIC panel)-->DIC panel reviewed, D-dimer high, inr higher, hapto pending --> abx and other meds have been reviewed --> ok for ppx if plt >50k w/ either heparin or lovenox --> Transfuse if Plt < 20k and fever, or if Plt < 10k without fever --> off heparin now, have ordered for hit-pf4 antibody test --> plt trend 15-->20k-->37k --> HOLD LOVENOX SQ # Anemia of chronic disease due to underlying chronic medical issues, multifactorial v Gi bleed --> Anemia workup has been ordered, rule out gi bleed --> No evidence of hemolysis is noted, peripheral smear has been reviewed. --> Hgb goal >7. Transfuse prn. --> Epogen or iron at this time is not particularly indicated --> Medications have been reviewed --> low threshold for gi evaluation in case has occult + --> bone marrow biopsy is not indicated given the other more likely causes --> hgb trend 9.9-->9.7-->8.6 # Septic shock 2/2 due to covid 19 --> on abx as per id -->zosyn/doxy/vanc --> wbc remains elev # Acute Hypoxic Respiratory Failure --> now s/p vent --> in icu # HCAP COVID positive --> abx, plaq and supp care # Jaundiced with Hyperbilirubinemia --> per gi--> with ogt --> have ordered repeat bilis # Schizophrenia # Bipolar dx # Dvt ppx scds The timing of this note does not necessarily reflect the time of the patient was seen. Greatly appreciate consultation. Subjective HEENT: Denies: no symptoms, eye pain, blurred vision, tearing, double vision, ear pain, ear discharge, nose pain, nose congestion, throat pain, throat swelling, mouth pain, mouth swelling, other Cardiovascular: Denies: no symptoms, chest pain, edema, irregular heart rate, lightheadedness, palpitations, syncope, other Gastrointestinal/Abdominal: Denies: no symptoms, abdomen distended, abdominal pain, black stools, tarry stools, blood in stool, constipated, diarrhea, difficulty swallowing, nausea, poor appetite, poor fluid intake, rectal bleeding , vomiting, other Genitourinary: Denies: no symptoms, burning, discharge, frequency, flank pain, hematuria, incontinence, pain, urgency, other Endocrine: Denies: no symptoms, excessive sweating, flushing, intolerance to cold, intolerance to heat, increased hunger, increased thirst, increased urine, unexplained weight gain, unexplained weight loss, other Hematologic/Lymphatic: Denies: no symptoms, anemia, easy bleeding, easy bruising, adenopathy, other Allergies: Coded Allergies: No Known Allergies (Unverified , 01/19/19) Subjective 02/28 remains on vent, og, rush, sedated in icu, on pressors, plt 15k, smear pending 03/02 icu, levo gtt, s/p ffp x2 units, on abx, labs pending 03/03 remains on vent with ogt, no bleeding, no night sweats 03/04 no bleeding, meds noted, no f/c, no night sweats Objective Objective Current Medications Medications (Trade) Dose Ordered Sig/Cirilo Route PRN Reason Start Time Stop Time Status Last Admin Dose Admin Acetaminophen (Tylenol) 650 mg Q4H PRN ORAL Fever 02/22/20 14:15 03/23/20 14:14 02/28/20 17:52 Acetaminophen (Tylenol) 650 mg Q4H PRN ORAL Mild Pain (Pain Scale 1-3) 02/22/20 14:15 03/23/20 14:14 03/03/20 17:31 Acetaminophen (Tylenol) 650 mg Q4H PRN RECTAL Mild Pain (Pain Scale 1-3) 02/22/20 14:15 03/23/20 14:14 02/22/20 21:28 Acetaminophen (Tylenol) 650 mg Q4H PRN RECTAL FEVER 02/22/20 14:15 03/23/20 14:14 Albumin Human 100 ml @ 100 mls/hr ONCE ONCE IVPB 03/04/20 12:00 03/04/20 12:59 UNV Chlorhexidine Gluconate (Maira-Hex 2%) 1 applic DAILY@2000 TOPIC 02/23/20 20:00 05/23/20 19:59 03/03/20 20:31 Dextrose (Dextrose 50%) 25 ml Q30M PRN IV Hypoglycemia 02/23/20 09:00 05/23/20 08:59 Dextrose (Dextrose 50%) 50 ml Q30M PRN IV Hypoglycemia 02/23/20 09:00 05/23/20 08:59 Diphenhydramine HCl (Benadryl) 25 mg Q6H PRN ORAL Itching/Pruritis 02/22/20 14:15 03/23/20 14:14 02/26/20 01:34 Doxycycline Monohydrate (Doxycycline Monohydrate) 100 mg EVERY 12 HOURS ORAL 03/01/20 09:00 03/08/20 08:59 03/04/20 09:04 Fentanyl Citrate 2500 mcg/Sodium Chloride 250 ml @ 0 mls/hr Q24H IV 03/01/20 19:45 03/08/20 19:44 03/04/20 01:49 Insulin Aspart (NovoLOG) Q6HR SUBQ 02/28/20 18:00 05/28/20 17:59 03/04/20 00:13 Metoclopramide HCl (Reglan) 5 mg Q6HR IVP 03/01/20 12:00 03/31/20 11:59 03/04/20 06:27 Midazolam HCl 100 ml @ 0 mls/hr Q24H IV 02/26/20 15:06 05/26/20 15:05 02/26/20 15:48 Norepinephrine Bitartrate 8 mg/ Dextrose 500 ml @ 0 mls/hr Q24H IV 02/23/20 19:01 03/24/20 19:00 03/03/20 12:36 Pantoprazole (Protonix) 40 mg DAILY IVP 02/23/20 09:30 03/24/20 09:29 03/04/20 09:04 Phenylephrine HCl 50 mg/Dextrose 250 ml @ 6 mls/hr Q24H IV 02/29/20 10:45 03/30/20 10:44 03/04/20 04:43 Piperacillin Sod/ Tazobactam Sod 3.375 gm/Dextrose 110 ml @ 27.5 mls/hr Q8H IVPB 03/01/20 01:00 03/08/20 00:59 03/04/20 09:04 Vancomycin HCl (Vanco rx to dose) 1 ea DAILY PRN MISC Per rx protocol 02/22/20 14:30 03/23/20 14:29 Vancomycin HCl 1 gm/Dextrose 275 ml @ 183.708 mls/hr Q8H IVPB 03/02/20 21:00 03/07/20 20:59 03/04/20 06:27 Last 24 Hour Vital Signs Date Time Temp Pulse Resp B/P (MAP) Pulse Ox O2 Delivery O2 Flow Rate FiO2 03/04/20 11:20 106 20 80 03/04/20 11:00 108 24 152/92 (112) 99 03/04/20 10:00 101 24 93/80 (84) 99 03/04/20 10:00 21 Mechanical Ventilator 80 03/04/20 10:00 93/80 03/04/20 09:23 96 22 80 03/04/20 09:00 94 21 105/54 (71) 100 03/04/20 09:00 21 Mechanical Ventilator 80 03/04/20 09:00 105/54 03/04/20 08:30 97 25 110/51 (70) 99 03/04/20 08:00 98.6 98 29 115/55 (75) 99 03/04/20 08:00 93 03/04/20 08:00 22 Mechanical Ventilator 80 03/04/20 08:00 115/55 03/04/20 08:00 Mechanical Ventilator 03/04/20 08:00 80 03/04/20 07:00 28 Mechanical Ventilator 80 03/04/20 07:00 119/68 03/04/20 07:00 92 22 117/60 (79) 100 03/04/20 06:59 100 22 80 03/04/20 06:30 90 21 03/04/20 06:30 91 21 106/58 (74) 98 03/04/20 06:00 21 Mechanical Ventilator 80 03/04/20 06:00 106/58 03/04/20 06:00 91 22 114/53 (73) 100 03/04/20 05:30 87 20 99/52 (68) 100 03/04/20 05:00 92 22 101/58 (72) 100 03/04/20 05:00 24 Mechanical Ventilator 100 03/04/20 05:00 101/58 03/04/20 04:43 90 90/56 03/04/20 04:30 88 22 102/51 (68) 100 03/04/20 04:00 22 Mechanical Ventilator 100 03/04/20 04:00 110/68 03/04/20 04:00 80 03/04/20 04:00 88 03/04/20 04:00 98.3 83 23 110/68 (82) 100 03/04/20 04:00 Mechanical Ventilator 03/04/20 03:30 81 22 131/53 (79) 100 03/04/20 03:30 85 26 80 03/04/20 03:00 85 20 91/46 (61) 100 03/04/20 03:00 24 Mechanical Ventilator 100 03/04/20 03:00 91/46 03/04/20 02:30 89 20 105/59 (74) 100 03/04/20 02:26 99.1 03/04/20 02:00 24 Mechanical Ventilator 100 03/04/20 02:00 108/57 03/04/20 02:00 91 21 108/57 (74) 100 03/04/20 01:49 28 Mechanical Ventilator 100 03/04/20 01:30 90 20 105/58 (74) 100 03/04/20 01:00 93 21 110/51 (70) 100 03/04/20 01:00 26 Mechanical Ventilator 100 03/04/20 01:00 21 Mechanical Ventilator 100 03/04/20 01:00 110/51 03/04/20 01:00 110/51 03/04/20 00:30 90 20 88/45 (59) 100 03/04/20 00:00 Mechanical Ventilator 03/04/20 00:00 24 Mechanical Ventilator 100 03/04/20 00:00 110/62 03/04/20 00:00 99.1 95 21 123/59 (80) 100 03/03/20 23:30 94 23 131/63 (85) 100 03/03/20 23:30 94 23 100 03/03/20 23:00 25 Mechanical Ventilator 100 03/03/20 23:00 129/65 03/03/20 23:00 96 24 129/65 (86) 100 03/03/20 22:30 93 24 124/60 (81) 100 03/03/20 22:00 26 Mechanical Ventilator 100 03/03/20 22:00 99/48 03/03/20 22:00 93 23 99/48 (65) 100 03/03/20 21:30 98 26 120/58 (78) 100 03/03/20 21:00 99.9 101 29 126/60 (82) 100 03/03/20 21:00 29 Mechanical Ventilator 100 03/03/20 21:00 126/60 03/03/20 20:30 100 25 119/56 (77) 100 03/03/20 20:00 Mechanical Ventilator 03/03/20 20:00 28 Mechanical Ventilator 100 03/03/20 20:00 126/59 03/03/20 20:00 102 03/03/20 20:00 101 28 126/59 (81) 100 03/03/20 20:00 100 03/03/20 19:30 98 21 100 03/03/20 19:30 101 27 122/60 (80) 100 03/03/20 19:00 100 25 120/58 (78) 100 03/03/20 19:00 25 Mechanical Ventilator 100 03/03/20 19:00 120/58 03/03/20 18:30 99 24 125/59 (81) 100 03/03/20 18:00 97 24 125/60 (81) 100 03/03/20 18:00 25 Mechanical Ventilator 100 03/03/20 18:00 125/59 03/03/20 17:30 94 26 95/46 (62) 100 03/03/20 17:00 27 Mechanical Ventilator 100 03/03/20 17:00 95/45 03/03/20 17:00 96 27 95/45 (62) 99 03/03/20 16:33 104 27 100 03/03/20 16:30 104 26 103/46 (65) 99 03/03/20 16:00 108 26 124/56 (78) 100 03/03/20 16:00 Mechanical Ventilator 03/03/20 16:00 105 03/03/20 16:00 20 Mechanical Ventilator 100 03/03/20 16:00 124/56 03/03/20 16:00 100 03/03/20 16:00 99.4 108 26 124/56 (78) 100 03/03/20 15:30 111 29 132/59 (83) 100 03/03/20 15:00 20 Mechanical Ventilator 100 03/03/20 15:00 128/58 03/03/20 15:00 105 30 124/56 (78) 100 03/03/20 14:55 114 28 100 03/03/20 14:45 137/81 03/03/20 14:30 127/58 03/03/20 14:30 115 30 127/57 (80) 03/03/20 14:15 127/57 03/03/20 14:00 117 32 140/59 (86) 03/03/20 14:00 20 Mechanical Ventilator 100 03/03/20 14:00 122/63 03/03/20 13:45 140/59 03/03/20 13:30 130/57 03/03/20 13:30 115 31 128/62 (84) 03/03/20 13:15 128/62 03/03/20 13:11 114 32 100 03/03/20 13:00 113 30 131/56 (81) 03/03/20 13:00 20 Mechanical Ventilator 100 03/03/20 13:00 130/58 03/03/20 12:45 131/56 03/03/20 12:36 132/58 03/03/20 12:33 132/60 03/03/20 12:30 107 30 137/58 (84) 03/03/20 12:00 Mechanical Ventilator 03/03/20 12:00 116 03/03/20 12:00 27 Mechanical Ventilator 100 03/03/20 12:00 127/60 03/03/20 12:00 100 03/03/20 12:00 98.4 98 25 105/48 (67) 03/03/20 11:30 105 25 105/49 (67) 03/03/20 11:12 104 24 100 03/03/20 11:00 24 Mechanical Ventilator 100 03/03/20 11:00 119/54 03/03/20 11:00 108 21 108/52 (70) 03/03/20 10:30 116 31 129/70 (89) 03/03/20 10:00 117 30 125/60 (81) 03/03/20 10:00 31 Mechanical Ventilator 100 03/03/20 10:00 126/62 03/03/20 09:30 121 32 126/63 (84) 03/03/20 09:00 33 Mechanical Ventilator 100 03/03/20 09:00 128/58 03/03/20 09:00 121 35 128/58 (81) 03/03/20 08:41 118 33 100 03/03/20 08:30 118 34 133/67 (89) 03/03/20 08:00 117 03/03/20 08:00 100 03/03/20 08:00 34 Mechanical Ventilator 100 03/03/20 08:00 122/72 03/03/20 08:00 99.0 117 36 137/69 (91) 97 03/03/20 08:00 Mechanical Ventilator 03/03/20 07:30 118 35 136/73 (94) 98 03/03/20 07:14 110 32 100 03/03/20 07:00 37 Mechanical Ventilator 100 03/03/20 07:00 127/65 03/03/20 07:00 112 33 127/65 (85) 100 03/03/20 06:45 112 34 121/66 (84) 100 03/03/20 06:30 114 33 124/64 (84) 100 03/03/20 06:30 34 23 03/03/20 06:15 114 34 126/62 (83) 100 03/03/20 06:00 37 Mechanical Ventilator 100 03/03/20 06:00 126/62 03/03/20 06:00 115 35 128/63 (84) 97 03/03/20 05:45 116 35 124/64 (84) 97 03/03/20 05:30 117 36 123/63 (83) 98 03/03/20 05:18 37 Mechanical Ventilator 100 03/03/20 05:18 116 129/68 03/03/20 05:15 115 38 129/68 (88) 92 03/03/20 05:00 115 37 127/63 (84) 94 03/03/20 05:00 37 Mechanical Ventilator 100 03/03/20 05:00 129/68 03/03/20 04:30 124/50 (74) 03/03/20 04:00 100 03/03/20 04:00 98.8 113 36 122/65 (84) 87 03/03/20 04:00 24 Mechanical Ventilator 100 03/03/20 04:00 129/67 03/03/20 04:00 Mechanical Ventilator 03/03/20 04:00 114 03/03/20 03:30 112 36 124/64 (84) 96 03/03/20 03:21 111 34 100 03/03/20 03:00 119 35 125/67 (86) 94 03/03/20 03:00 20 Mechanical Ventilator 100 03/03/20 03:00 118/65 03/03/20 02:31 24 100 03/03/20 02:30 112 33 132/67 (88) 100 03/03/20 02:00 26 Mechanical Ventilator 100 03/03/20 02:00 120/79 03/03/20 02:00 105 30 132/72 (92) 100 03/03/20 01:30 95 25 102/53 (69) 100 03/03/20 01:00 97 26 100/50 (67) 100 03/03/20 01:00 24 Mechanical Ventilator 100 03/03/20 01:00 102/54 03/03/20 00:30 99 28 96/48 (64) 100 03/03/20 00:00 100 03/03/20 00:00 98.5 102 28 103/55 (71) 100 03/03/20 00:00 102 28 103/55 (71) 100 03/03/20 00:00 Mechanical Ventilator 03/03/20 00:00 100 03/03/20 00:00 26 Mechanical Ventilator 100 03/03/20 00:00 95/59 03/02/20 23:27 117 34 100 03/02/20 23:10 105/70 03/02/20 23:00 24 Mechanical Ventilator 100 03/02/20 22:30 118 33 99/56 (70) 100 03/02/20 22:00 118 33 106/60 (75) 100 03/02/20 22:00 24 Mechanical Ventilator 100 03/02/20 21:30 108 31 114/60 (78) 100 03/02/20 21:00 114 34 120/65 (83) 100 03/02/20 21:00 20 Mechanical Ventilator 100 03/02/20 21:00 131/88 03/02/20 20:30 115 35 120/60 (80) 100 03/02/20 20:00 105 03/02/20 20:00 98.8 129 33 120/62 (81) 100 520 20:00 16 Mechanical Ventilator 100 20 20:00 134/74 520 20:00 100 20 20:00 Mechanical Ventilator 03/02/20 19:30 118 36 100 520 19:30 117 33 129/69 (89) 98 20 19:00 116 47 134/66 (88) 98 03/02/20 19:00 26 Mechanical Ventilator 100 03/02/20 19:00 132/74 520 18:30 113 34 131/73 (92) 100 03/02/20 18:00 34 Mechanical Ventilator 100 03/02/20 18:00 137/66 03/02/20 18:00 112 34 137/66 (89) 99 03/02/20 17:30 110 33 134/67 (89) 100 03/02/20 17:00 34 Mechanical Ventilator 100 03/02/20 17:00 128/68 03/02/20 17:00 96 34 128/68 (88) 100 03/02/20 16:30 94 34 125/70 (88) 100 03/02/20 16:00 100 03/02/20 16:00 Mechanical Ventilator 03/02/20 16:00 92 03/02/20 16:00 92 33 127/70 (89) 100 03/02/20 16:00 31 Mechanical Ventilator 100 03/02/20 16:00 127/70 03/02/20 15:30 80 27 100 03/02/20 15:30 90 31 104/65 (78) 100 03/02/20 15:00 29 Mechanical Ventilator 100 03/02/20 15:00 122/69 20 15:00 87 29 122/69 (86) 100 03/02/20 14:30 80 28 92/45 (61) 100 03/02/20 14:00 88 30 117/61 (79) 100 03/02/20 14:00 30 Mechanical Ventilator 100 03/02/20 14:00 110/60 03/02/20 13:30 85 27 89/47 (61) 100 03/02/20 13:00 96 32 86/48 (61) 100 03/02/20 13:00 32 Mechanical Ventilator 100 03/02/20 13:00 86/48 03/02/20 12:30 107 34 78/66 (70) 100 03/02/20 12:14 104 125/66 Intake and Output 03/03/20 03/04/20 19:00 07:00 Intake Total 1356.000 ml 1545.916 ml Output Total 730 ml 701 ml Balance 626.000 ml 844.916 ml Free Water 250 ml 120 ml IV Total 996.000 ml 1380.916 ml Tube Feeding 110 ml 45 ml Output Urine Total 600 ml 700 ml Stool Total 1 ml Chest Tube Drainage Total 130 ml # Bowel Movements 1 Labs Test 03/02/20 05:44 03/03/20 03:50 03/04/20 03:30 Sodium Level 130 MMOL/L (136-145) 130 MMOL/L (136-145) 129 MMOL/L (136-145) Potassium Level 4.6 MMOL/L (3.5-5.1) 4.5 MMOL/L (3.5-5.1) 4.2 MMOL/L (3.5-5.1) Chloride Level 96 MMOL/L (98-107) 95 MMOL/L (98-107) 95 MMOL/L (98-107) Carbon Dioxide Level 29 MMOL/L (21-32) 29 MMOL/L (21-32) 30 MMOL/L (21-32) Anion Gap 5 mmol/L (5-15) 6 mmol/L (5-15) 4 mmol/L (5-15) Blood Urea Nitrogen 29 mg/dL (7-18) 30 mg/dL (7-18) 28 mg/dL (7-18) Creatinine 0.9 MG/DL (0.55-1.30) 0.9 MG/DL (0.55-1.30) 0.8 MG/DL (0.55-1.30) Estimat Glomerular Filtration Rate > 60 mL/min (>60) > 60 mL/min (>60) > 60 mL/min (>60) Glucose Level 142 MG/DL (74-106) 131 MG/DL (74-106) 121 MG/DL (74-106) Calcium Level 7.2 MG/DL (8.5-10.1) 7.1 MG/DL (8.5-10.1) 7.4 MG/DL (8.5-10.1) Phosphorus Level 2.6 MG/DL (2.5-4.9) 2.5 MG/DL (2.5-4.9) Magnesium Level 2.0 MG/DL (1.8-2.4) 2.2 MG/DL (1.8-2.4) White Blood Count 10.5 K/UL (4.8-10.8) Red Blood Count 2.78 M/UL (4.70-6.10) Hemoglobin 8.6 G/DL (14.2-18.0) Hematocrit 24.5 % (42.0-52.0) Mean Corpuscular Volume 88 FL (80-99) Mean Corpuscular Hemoglobin 30.9 PG (27.0-31.0) Mean Corpuscular Hemoglobin Concent 35.1 G/DL (32.0-36.0) Red Cell Distribution Width 14.2 % (11.6-14.8) Platelet Count 37 K/UL (150-450) Mean Platelet Volume 11.9 FL (6.5-10.1) Neutrophils (%) (Auto) % (45.0-75.0) Lymphocytes (%) (Auto) % (20.0-45.0) Monocytes (%) (Auto) % (1.0-10.0) Eosinophils (%) (Auto) % (0.0-3.0) Basophils (%) (Auto) % (0.0-2.0) Differential Total Cells Counted 100 Neutrophils % (Manual) 86 % (45-75) Lymphocytes % (Manual) 3 % (20-45) Monocytes % (Manual) 11 % (1-10) Eosinophils % (Manual) 0 % (0-3) Basophils % (Manual) 0 % (0-2) Band Neutrophils 0 % (0-8) Platelet Estimate Decreased Platelet Morphology Normal Hypochromasia 2+ Anisocytosis 1+ Spherocytes 2+ Prothrombin Time 15.4 SEC (9.30-11.50) Prothromb Time International Ratio 1.5 (0.9-1.1) Activated Partial Thromboplast Time 33 SEC (23-33) Total Bilirubin 10.5 MG/DL (0.2-1.0) Direct Bilirubin 8.8 MG/DL (0.0-0.3) Aspartate Amino Transf (AST/SGOT) 52 U/L (15-37) Alanine Aminotransferase (ALT/SGPT) 44 U/L (12-78) Alkaline Phosphatase 264 U/L (46-116) Total Protein 5.1 G/DL (6.4-8.2) Albumin 1.2 G/DL (3.4-5.0) Globulin 3.9 g/dL Albumin/Globulin Ratio 0.3 (1.0-2.7) Height (Feet): 5 Height (Inches): 5.00 Weight (Pounds): 143 Objective Physical Exam: Vitals: reviewed General: NAD HEENT: nc, at ++Ogt Neck: supple Chest: in the icu, remains intubated++ Cardiovascular: RRR, no s3, s4 Abdomen: soft, nontender, nd Extremities: no cce, normal range of motion Neuro: alert to self : Montez Maradiaga MD March 04, 2020 12:14
--- NOTE | 2020-03-04 14:42 | Cardiac Electrophysiology PN ---
Assessment/Plan Assessment/Plan 1. Respiratory failure due to COVID pneumonia and CHF as BNP is more than 2000. Echo EF 50%. His white count however is only 7.2 with lymphopenia On the Vent 100% Fio2, PEEP 5 2. Septic shock likely due to pneumonia and dehydration. On Levo and Fredrick and Abx. 3. CXR, Since 02/26/2020, interim development of small bilateral pneumothoraces, right greater than left, and extensive subcutaneous emphysema. There may also be minimal pneumomediastinum. S/P Left chest tube 03/02/20 4. Hypernatremia, resolved with IV fluids. 5. Dehydration. DW Dr. Sales Subjective Subjective In ICU off Levo on the vent with Fio2 80% and PEEP 5. EF 50%. Covid PCR is positive. S/P Left chest tube placement 03/02/[address] Sales and draining Objective Last 24 Hour Vital Signs Date Time Temp Pulse Resp B/P (MAP) Pulse Ox O2 Delivery O2 Flow Rate FiO2 03/04/20 13:20 117 36 80 03/04/20 12:15 113 33 127/56 (79) 92 03/04/20 12:00 108 32 83/42 (56) 86 03/04/20 12:00 80 03/04/20 12:00 20 Mechanical Ventilator 80 03/04/20 12:00 83/42 03/04/20 12:00 Mechanical Ventilator 03/04/20 11:53 108 32 109/46 (67) 89 03/04/20 11:30 247/74 03/04/20 11:30 108 31 247/74 (131) 91 03/04/20 11:20 106 20 80 03/04/20 11:00 108 24 152/92 (112) 99 03/04/20 11:00 22 Mechanical Ventilator 80 03/04/20 11:00 152/92 03/04/20 10:00 101 24 93/80 (84) 99 03/04/20 10:00 21 Mechanical Ventilator 80 03/04/20 10:00 93/80 03/04/20 09:23 96 22 80 03/04/20 09:00 94 21 105/54 (71) 100 03/04/20 09:00 21 Mechanical Ventilator 80 03/04/20 09:00 105/54 03/04/20 08:30 97 25 110/51 (70) 99 03/04/20 08:00 98.6 98 29 115/55 (75) 99 03/04/20 08:00 93 03/04/20 08:00 22 Mechanical Ventilator 80 03/04/20 08:00 115/55 03/04/20 08:00 Mechanical Ventilator 03/04/20 08:00 80 03/04/20 07:00 28 Mechanical Ventilator 80 03/04/20 07:00 119/68 03/04/20 07:00 92 22 117/60 (79) 100 03/04/20 06:59 100 22 80 03/04/20 06:30 90 21 03/04/20 06:30 91 21 106/58 (74) 98 03/04/20 06:00 21 Mechanical Ventilator 80 03/04/20 06:00 106/58 03/04/20 06:00 91 22 114/53 (73) 100 03/04/20 05:30 87 20 99/52 (68) 100 03/04/20 05:00 92 22 101/58 (72) 100 03/04/20 05:00 24 Mechanical Ventilator 100 03/04/20 05:00 101/58 03/04/20 04:43 90 90/56 03/04/20 04:30 88 22 102/51 (68) 100 03/04/20 04:00 22 Mechanical Ventilator 100 03/04/20 04:00 110/68 03/04/20 04:00 80 03/04/20 04:00 88 03/04/20 04:00 98.3 83 23 110/68 (82) 100 03/04/20 04:00 Mechanical Ventilator 03/04/20 03:30 81 22 131/53 (79) 100 03/04/20 03:30 85 26 80 03/04/20 03:00 85 20 91/46 (61) 100 03/04/20 03:00 24 Mechanical Ventilator 100 03/04/20 03:00 91/46 03/04/20 02:30 89 20 105/59 (74) 100 03/04/20 02:26 99.1 03/04/20 02:00 24 Mechanical Ventilator 100 03/04/20 02:00 108/57 03/04/20 02:00 91 21 108/57 (74) 100 03/04/20 01:49 28 Mechanical Ventilator 100 03/04/20 01:30 90 20 105/58 (74) 100 03/04/20 01:00 93 21 110/51 (70) 100 03/04/20 01:00 26 Mechanical Ventilator 100 03/04/20 01:00 21 Mechanical Ventilator 100 03/04/20 01:00 110/51 03/04/20 01:00 110/51 03/04/20 00:30 90 20 88/45 (59) 100 03/04/20 00:00 Mechanical Ventilator 03/04/20 00:00 24 Mechanical Ventilator 100 03/04/20 00:00 110/62 03/04/20 00:00 99.1 95 21 123/59 (80) 100 03/03/20 23:30 94 23 131/63 (85) 100 03/03/20 23:30 94 23 100 03/03/20 23:00 25 Mechanical Ventilator 100 03/03/20 23:00 129/65 03/03/20 23:00 96 24 129/65 (86) 100 03/03/20 22:30 93 24 124/60 (81) 100 03/03/20 22:00 26 Mechanical Ventilator 100 03/03/20 22:00 99/48 03/03/20 22:00 93 23 99/48 (65) 100 03/03/20 21:30 98 26 120/58 (78) 100 03/03/20 21:00 99.9 101 29 126/60 (82) 100 03/03/20 21:00 29 Mechanical Ventilator 100 03/03/20 21:00 126/60 03/03/20 20:30 100 25 119/56 (77) 100 03/03/20 20:00 Mechanical Ventilator 03/03/20 20:00 28 Mechanical Ventilator 100 03/03/20 20:00 126/59 03/03/20 20:00 102 03/03/20 20:00 101 28 126/59 (81) 100 03/03/20 20:00 100 03/03/20 19:30 98 21 100 03/03/20 19:30 101 27 122/60 (80) 100 03/03/20 19:00 100 25 120/58 (78) 100 03/03/20 19:00 25 Mechanical Ventilator 100 03/03/20 19:00 120/58 03/03/20 18:30 99 24 125/59 (81) 100 03/03/20 18:00 97 24 125/60 (81) 100 03/03/20 18:00 25 Mechanical Ventilator 100 03/03/20 18:00 125/59 03/03/20 17:30 94 26 95/46 (62) 100 03/03/20 17:00 27 Mechanical Ventilator 100 03/03/20 17:00 95/45 03/03/20 17:00 96 27 95/45 (62) 99 03/03/20 16:33 104 27 100 03/03/20 16:30 104 26 103/46 (65) 99 03/03/20 16:00 108 26 124/56 (78) 100 03/03/20 16:00 Mechanical Ventilator 03/03/20 16:00 105 03/03/20 16:00 20 Mechanical Ventilator 100 03/03/20 16:00 124/56 03/03/20 16:00 100 03/03/20 16:00 99.4 108 26 124/56 (78) 100 03/03/20 15:30 111 29 132/59 (83) 100 03/03/20 15:00 20 Mechanical Ventilator 100 03/03/20 15:00 128/58 03/03/20 15:00 105 30 124/56 (78) 100 03/03/20 14:55 114 28 100 03/03/20 14:45 137/81 Intake and Output 03/03/20 03/04/20 19:00 07:00 Intake Total 1356.000 ml 1545.916 ml Output Total 730 ml 701 ml Balance 626.000 ml 844.916 ml Free Water 250 ml 120 ml IV Total 996.000 ml 1380.916 ml Tube Feeding 110 ml 45 ml Output Urine Total 600 ml 700 ml Stool Total 1 ml Chest Tube Drainage Total 130 ml # Bowel Movements 1 Laboratory Tests Test 03/04/20 03:30 03/04/20 12:15 03/04/20 13:50 Sodium Level 129 MMOL/L (136-145) L Potassium Level 4.2 MMOL/L (3.5-5.1) Chloride Level 95 MMOL/L (98-107) L Carbon Dioxide Level 30 MMOL/L (21-32) Anion Gap 4 mmol/L (5-15) L Blood Urea Nitrogen 28 mg/dL (7-18) H Creatinine 0.8 MG/DL (0.55-1.30) Estimat Glomerular Filtration Rate > 60 mL/min (>60) Glucose Level 121 MG/DL (74-106) H Calcium Level 7.4 MG/DL (8.5-10.1) L Phosphorus Level 2.5 MG/DL (2.5-4.9) Magnesium Level 2.2 MG/DL (1.8-2.4) Vancomycin Level Trough 34.1 ug/mL (5.0-12.0) H Pending PTT Mixing Study Pending APTT Patient/Control Mix Pending Mix PTT Incubation Time Pending Mix PTT Normal/Saline 1:1 Immediate Pending Thrombin Time Normal Plasma Pending Objective HEAD AND NECK: No JVD orally intubated. LUNGS: Decreased breath sounds and coarse rhonchi. SQ emphesyma Left chest tube is in CARDIOVASCULAR: Regular S1 and S2 with no gallop. ABDOMEN: Soft. EXTREMITIES: No pitting edema. Deric Garcia MD March 04, 2020 14:42
--- NOTE | 2020-03-04 15:11 | Surgery Progress Note ---
Surgery Progress Note Subjective Procedure Performed Left tube thoracostomy Additional Comments chest tube with serous output lot still labs noted ill appearing cxr reviewed Objective Last 24 Hour Vital Signs Date Time Temp Pulse Resp B/P (MAP) Pulse Ox O2 Delivery O2 Flow Rate FiO2 03/04/20 13:20 117 36 80 03/04/20 12:15 113 33 127/56 (79) 92 03/04/20 12:00 108 32 83/42 (56) 86 03/04/20 12:00 80 03/04/20 12:00 20 Mechanical Ventilator 80 03/04/20 12:00 83/42 03/04/20 12:00 Mechanical Ventilator 03/04/20 11:53 108 32 109/46 (67) 89 03/04/20 11:30 247/74 03/04/20 11:30 108 31 247/74 (131) 91 03/04/20 11:20 106 20 80 03/04/20 11:00 108 24 152/92 (112) 99 03/04/20 11:00 22 Mechanical Ventilator 80 03/04/20 11:00 152/92 03/04/20 10:00 101 24 93/80 (84) 99 03/04/20 10:00 21 Mechanical Ventilator 80 03/04/20 10:00 93/80 03/04/20 09:23 96 22 80 03/04/20 09:00 94 21 105/54 (71) 100 03/04/20 09:00 21 Mechanical Ventilator 80 03/04/20 09:00 105/54 03/04/20 08:30 97 25 110/51 (70) 99 03/04/20 08:00 98.6 98 29 115/55 (75) 99 03/04/20 08:00 93 03/04/20 08:00 22 Mechanical Ventilator 80 03/04/20 08:00 115/55 03/04/20 08:00 Mechanical Ventilator 03/04/20 08:00 80 03/04/20 07:00 28 Mechanical Ventilator 80 03/04/20 07:00 119/68 03/04/20 07:00 92 22 117/60 (79) 100 03/04/20 06:59 100 22 80 03/04/20 06:30 90 21 03/04/20 06:30 91 21 106/58 (74) 98 03/04/20 06:00 21 Mechanical Ventilator 80 03/04/20 06:00 106/58 03/04/20 06:00 91 22 114/53 (73) 100 03/04/20 05:30 87 20 99/52 (68) 100 03/04/20 05:00 92 22 101/58 (72) 100 03/04/20 05:00 24 Mechanical Ventilator 100 03/04/20 05:00 101/58 03/04/20 04:43 90 90/56 03/04/20 04:30 88 22 102/51 (68) 100 03/04/20 04:00 22 Mechanical Ventilator 100 03/04/20 04:00 110/68 03/04/20 04:00 80 03/04/20 04:00 88 03/04/20 04:00 98.3 83 23 110/68 (82) 100 03/04/20 04:00 Mechanical Ventilator 03/04/20 03:30 81 22 131/53 (79) 100 03/04/20 03:30 85 26 80 03/04/20 03:00 85 20 91/46 (61) 100 03/04/20 03:00 24 Mechanical Ventilator 100 03/04/20 03:00 91/46 03/04/20 02:30 89 20 105/59 (74) 100 03/04/20 02:26 99.1 03/04/20 02:00 24 Mechanical Ventilator 100 03/04/20 02:00 108/57 03/04/20 02:00 91 21 108/57 (74) 100 03/04/20 01:49 28 Mechanical Ventilator 100 03/04/20 01:30 90 20 105/58 (74) 100 03/04/20 01:00 93 21 110/51 (70) 100 03/04/20 01:00 26 Mechanical Ventilator 100 03/04/20 01:00 21 Mechanical Ventilator 100 03/04/20 01:00 110/51 03/04/20 01:00 110/51 03/04/20 00:30 90 20 88/45 (59) 100 03/04/20 00:00 Mechanical Ventilator 03/04/20 00:00 24 Mechanical Ventilator 100 03/04/20 00:00 110/62 03/04/20 00:00 99.1 95 21 123/59 (80) 100 03/03/20 23:30 94 23 131/63 (85) 100 03/03/20 23:30 94 23 100 03/03/20 23:00 25 Mechanical Ventilator 100 03/03/20 23:00 129/65 03/03/20 23:00 96 24 129/65 (86) 100 03/03/20 22:30 93 24 124/60 (81) 100 03/03/20 22:00 26 Mechanical Ventilator 100 03/03/20 22:00 99/48 03/03/20 22:00 93 23 99/48 (65) 100 03/03/20 21:30 98 26 120/58 (78) 100 03/03/20 21:00 99.9 101 29 126/60 (82) 100 03/03/20 21:00 29 Mechanical Ventilator 100 03/03/20 21:00 126/60 03/03/20 20:30 100 25 119/56 (77) 100 03/03/20 20:00 Mechanical Ventilator 03/03/20 20:00 28 Mechanical Ventilator 100 03/03/20 20:00 126/59 03/03/20 20:00 102 03/03/20 20:00 101 28 126/59 (81) 100 03/03/20 20:00 100 03/03/20 19:30 98 21 100 03/03/20 19:30 101 27 122/60 (80) 100 03/03/20 19:00 100 25 120/58 (78) 100 03/03/20 19:00 25 Mechanical Ventilator 100 03/03/20 19:00 120/58 03/03/20 18:30 99 24 125/59 (81) 100 03/03/20 18:00 97 24 125/60 (81) 100 03/03/20 18:00 25 Mechanical Ventilator 100 03/03/20 18:00 125/59 03/03/20 17:30 94 26 95/46 (62) 100 03/03/20 17:00 27 Mechanical Ventilator 100 03/03/20 17:00 95/45 03/03/20 17:00 96 27 95/45 (62) 99 03/03/20 16:33 104 27 100 03/03/20 16:30 104 26 103/46 (65) 99 03/03/20 16:00 108 26 124/56 (78) 100 03/03/20 16:00 Mechanical Ventilator 03/03/20 16:00 105 03/03/20 16:00 20 Mechanical Ventilator 100 03/03/20 16:00 124/56 03/03/20 16:00 100 03/03/20 16:00 99.4 108 26 124/56 (78) 100 03/03/20 15:30 111 29 132/59 (83) 100 I&O Intake and Output 03/03/20 03/04/20 19:00 07:00 Intake Total 1356.000 ml 1545.916 ml Output Total 730 ml 701 ml Balance 626.000 ml 844.916 ml Free Water 250 ml 120 ml IV Total 996.000 ml 1380.916 ml Tube Feeding 110 ml 45 ml Output Urine Total 600 ml 700 ml Stool Total 1 ml Chest Tube Drainage Total 130 ml # Bowel Movements 1 Dressing: other Wound: other Drains: other Cardiovascular: RSR Respiratory: decreased breath sounds Abdomen: soft, non-tender, present bowel sounds Extremities: no cyanosis Laboratory Tests Test 03/04/20 03:30 03/04/20 12:15 03/04/20 13:50 Sodium Level 129 MMOL/L (136-145) L Potassium Level 4.2 MMOL/L (3.5-5.1) Chloride Level 95 MMOL/L (98-107) L Carbon Dioxide Level 30 MMOL/L (21-32) Anion Gap 4 mmol/L (5-15) L Blood Urea Nitrogen 28 mg/dL (7-18) H Creatinine 0.8 MG/DL (0.55-1.30) Estimat Glomerular Filtration Rate > 60 mL/min (>60) Glucose Level 121 MG/DL (74-106) H Calcium Level 7.4 MG/DL (8.5-10.1) L Phosphorus Level 2.5 MG/DL (2.5-4.9) Magnesium Level 2.2 MG/DL (1.8-2.4) Vancomycin Level Trough 34.1 ug/mL (5.0-12.0) H 34.0 ug/mL (5.0-12.0) H PTT Mixing Study Pending APTT Patient/Control Mix Pending Mix PTT Incubation Time Pending Mix PTT Normal/Saline 1:1 Immediate Pending Thrombin Time Normal Plasma Pending Plan Problems: (1) Pneumothorax Assessment & Plan: Patient with bilateral pneumothoraces right slightly larger than left but both are very small. On the left side there is significant amount of subcutaneous emphysema extensively more than anything on the right side. 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 Given the x -ray findings and the extensive subtenons emphysema recommend placing a left- sided chest tube at this time with considerations for right side if necessary. Please see procedure note. Will follow and monitor 2. A.m. chest x-ray. Thank you Barber participate in patient's care AM CXR may need right chest tube Is a tiny sliver of a left apical pneumothorax, apex of the lung approximately 3 mm from the chest wall. There is a slightly larger but still small right apical pneumothorax, with the apex of the lung approximately 14 mm from the edge of the chest wall. There is extensive subcutaneous emphysema, particularly in the left anterior chest wall, but also seen in the bilateral supraclavicular fossae. The inferior right heart border is very well-defined. Uncertain as whether this represents a component of pneumomediastinum or a small medial pneumothorax. Stable tube and line positions, satisfactory. Bilateral infiltrates appear slightly improved as compared to the previous study. Impression: Since 02/26/2020, interim development of small bilateral pneumothoraces, right greater than left, and extensive subcutaneous emphysema. There may also be minimal pneumomediastinum. Bilateral infiltrates have improved somewhat in the interim. (2) Thrombocytopenia (3) Elevated LFTs (4) Diabetes mellitus (5) DVT (deep venous thrombosis) (6) History of hypertension (7) Cerebrovascular accident (CVA) (8) Alzheimer's dementia (9) Debility (10) Respiratory distress (11) Hypotension (12) Respiratory failure with hypoxia (13) Sepsis (14) Suspected COVID-19 virus infection [employer] March 04, 2020 15:11
--- NOTE | 2020-03-04 17:50 | Infectious Diseases Prog Note ---
Assessment/Plan Assessment/Plan ASSESSMENT AND PLAN: 1. covid-19 virus infection/pna +, rule out bacterial pna, sepsis, shock, leukocytosis, fevers, vent, pressors, mrsa colonization bc - one bottle - diphtheroids - likely contaminant pneumothorax/subcutaneous emphysema - chest tube - zosyn, doxycycline, vancomycin -day # 11 - s/p hydroxychloroquine - f/u labs and chest x-ray - condition - critical - icu care 2. Respiratory failure, on vent. 3. ICU care. 4. Pressors. 5. Low potassium or hypokalemia. 6. Diabetes. 7. Hypertension. 8. Alzheimer's. 9. CVA. 10. TIA. 11. DVT. 12. Dementia. 13. Aspiration risk. 14. No known drug allergies. 15. Social history negative. 16. Family history is noncontributory. 17. MAR was noted. 18. Case discussed with RN. 19. Poor prognosis. 20. Skin care protocol. 21. Case discussed with Dr. Nunez. Subjective Constitutional: Reports: fatigue, other - on vent and pressors ; Denies: fever HEENT: Reports: congestion Respiratory: Reports: shortness of breath Cardiovascular: Reports: other - + pressors Gastrointestinal/Abdominal: Denies: nausea, vomiting, diarrhea Genitourinary: Reports: other - + rush Psychiatric: Reports: other - NA Hematologic: Denies: bleeding Musculoskeletal: Reports: other - NA Allergies: Coded Allergies: No Known Allergies (Unverified , 01/19/19) Objective Vital Signs Last 24 Hour Vital Signs Date Time Temp Pulse Resp B/P (MAP) Pulse Ox O2 Delivery O2 Flow Rate FiO2 03/04/20 17:00 118 32 109/48 (68) 92 03/04/20 17:00 30 Mechanical Ventilator 80 03/04/20 17:00 109/48 03/04/20 16:55 116 30 80 03/04/20 16:45 115 33 108/50 (69) 90 03/04/20 16:30 117 30 106/46 (66) 88 03/04/20 16:00 Mechanical Ventilator 03/04/20 16:00 80 03/04/20 16:00 24 Mechanical Ventilator 80 03/04/20 16:00 122/52 03/04/20 16:00 113 03/04/20 16:00 98.5 116 33 122/52 (75) 91 03/04/20 15:30 115 32 116/48 (70) 92 03/04/20 15:20 120 32 80 03/04/20 15:15 114 30 101/47 (65) 91 03/04/20 15:00 28 Mechanical Ventilator 80 03/04/20 15:00 99/48 03/04/20 15:00 116 31 99/48 (65) 94 03/04/20 14:45 113 31 100/49 (66) 88 03/04/20 14:30 117 34 265/112 (162) 92 03/04/20 14:15 118 35 242/125 (164) 91 03/04/20 14:00 32 Mechanical Ventilator 80 03/04/20 14:00 229/90 03/04/20 14:00 118 35 229/90 (136) 90 03/04/20 13:45 117 36 226/88 (134) 91 03/04/20 13:30 116 36 164/126 (139) 92 03/04/20 13:20 117 36 80 03/04/20 13:15 117 35 261/117 (165) 92 03/04/20 13:00 36 Mechanical Ventilator 80 03/04/20 13:00 166/125 03/04/20 13:00 115 34 166/125 (139) 93 03/04/20 12:45 114 34 126/106 (113) 92 03/04/20 12:30 99.4 114 33 118/55 (76) 92 03/04/20 12:15 113 33 127/56 (79) 92 03/04/20 12:00 108 32 83/42 (56) 86 03/04/20 12:00 80 03/04/20 12:00 20 Mechanical Ventilator 80 03/04/20 12:00 83/42 03/04/20 12:00 Mechanical Ventilator 03/04/20 12:00 108 03/04/20 11:53 108 32 109/46 (67) 89 03/04/20 11:30 247/74 03/04/20 11:30 108 31 247/74 (131) 91 03/04/20 11:20 106 20 80 03/04/20 11:00 108 24 152/92 (112) 99 03/04/20 11:00 22 Mechanical Ventilator 80 5/8/20 11:00 152/92 03/04/20 10:00 101 24 93/80 (84) 99 03/04/20 10:00 21 Mechanical Ventilator 80 03/04/20 10:00 93/80 03/04/20 09:23 96 22 80 03/04/20 09:00 94 21 105/54 (71) 100 03/04/20 09:00 21 Mechanical Ventilator 80 03/04/20 09:00 105/54 03/04/20 08:30 97 25 110/51 (70) 99 03/04/20 08:00 98.6 98 29 115/55 (75) 99 03/04/20 08:00 93 03/04/20 08:00 22 Mechanical Ventilator 80 03/04/20 08:00 115/55 03/04/20 08:00 Mechanical Ventilator 03/04/20 08:00 80 03/04/20 07:00 28 Mechanical Ventilator 80 03/04/20 07:00 119/68 03/04/20 07:00 92 22 117/60 (79) 100 03/04/20 06:59 100 22 80 03/04/20 06:30 90 21 03/04/20 06:30 91 21 106/58 (74) 98 03/04/20 06:00 21 Mechanical Ventilator 80 03/04/20 06:00 106/58 03/04/20 06:00 91 22 114/53 (73) 100 03/04/20 05:30 87 20 99/52 (68) 100 03/04/20 05:00 92 22 101/58 (72) 100 03/04/20 05:00 24 Mechanical Ventilator 100 03/04/20 05:00 101/58 03/04/20 04:43 90 90/56 03/04/20 04:30 88 22 102/51 (68) 100 03/04/20 04:00 22 Mechanical Ventilator 100 03/04/20 04:00 110/68 03/04/20 04:00 80 03/04/20 04:00 88 03/04/20 04:00 98.3 83 23 110/68 (82) 100 03/04/20 04:00 Mechanical Ventilator 03/04/20 03:30 81 22 131/53 (79) 100 03/04/20 03:30 85 26 80 03/04/20 03:00 85 20 91/46 (61) 100 03/04/20 03:00 24 Mechanical Ventilator 100 03/04/20 03:00 91/46 03/04/20 02:30 89 20 105/59 (74) 100 03/04/20 02:26 99.1 03/04/20 02:00 24 Mechanical Ventilator 100 03/04/20 02:00 108/57 03/04/20 02:00 91 21 108/57 (74) 100 03/04/20 01:49 28 Mechanical Ventilator 100 03/04/20 01:30 90 20 105/58 (74) 100 03/04/20 01:00 93 21 110/51 (70) 100 03/04/20 01:00 26 Mechanical Ventilator 100 03/04/20 01:00 21 Mechanical Ventilator 100 03/04/20 01:00 110/51 03/04/20 01:00 110/51 03/04/20 00:30 90 20 88/45 (59) 100 03/04/20 00:00 Mechanical Ventilator 03/04/20 00:00 24 Mechanical Ventilator 100 03/04/20 00:00 110/62 03/04/20 00:00 99.1 95 21 123/59 (80) 100 03/03/20 23:30 94 23 131/63 (85) 100 03/03/20 23:30 94 23 100 03/03/20 23:00 25 Mechanical Ventilator 100 03/03/20 23:00 129/65 03/03/20 23:00 96 24 129/65 (86) 100 03/03/20 22:30 93 24 124/60 (81) 100 03/03/20 22:00 26 Mechanical Ventilator 100 03/03/20 22:00 99/48 03/03/20 22:00 93 23 99/48 (65) 100 03/03/20 21:30 98 26 120/58 (78) 100 03/03/20 21:00 99.9 101 29 126/60 (82) 100 03/03/20 21:00 29 Mechanical Ventilator 100 03/03/20 21:00 126/60 03/03/20 20:30 100 25 119/56 (77) 100 03/03/20 20:00 Mechanical Ventilator 03/03/20 20:00 28 Mechanical Ventilator 100 03/03/20 20:00 126/59 03/03/20 20:00 102 03/03/20 20:00 101 28 126/59 (81) 100 03/03/20 20:00 100 03/03/20 19:30 98 21 100 03/03/20 19:30 101 27 122/60 (80) 100 03/03/20 19:00 100 25 120/58 (78) 100 03/03/20 19:00 25 Mechanical Ventilator 100 03/03/20 19:00 120/58 03/03/20 18:30 99 24 125/59 (81) 100 03/03/20 18:00 97 24 125/60 (81) 100 03/03/20 18:00 25 Mechanical Ventilator 100 03/03/20 18:00 125/59 Height (Feet): 5 Height (Inches): 5.00 Weight (Pounds): 143 General Appearance: other - + vent and pressors HEENT: normocephalic, atraumatic, no JVD, other - oral - intubated Respiratory/Chest: crackles/rales, rhonchi - bilaterally Cardiovascular: normal rate, regular rhythm, no gallop/murmur, no JVD Abdomen: normal bowel sounds, soft, non tender, no organomegaly, non distended Genitourinary: other - + rush Extremities: no cyanosis Skin: no rash Neurologic/Psychiatric: other - weak, lethargic Lymphatic: no neck adenopathy Musculoskeletal: no effusion Objective Chest x-ray - 02/23/30 - Procedure: XRAY Chest 1v Indication: Respiratory failure shortness of breath Technique: XRAY Chest 1v Comparison: 02/22/2020 Findings: Heart borders are obscured. Interstitial and extensive predominantly perihilar airspace opacities are noted. There is slight decrease in opacification in the right midlung but there is worsening of disease in the left lung. Is been development of a small layering left pleural effusion. Endotracheal tube tip approximately 1.2 cm above the holly. Enteric tube tip in the distal stomach. Osseous structures are stable. There are atherosclerotic calcifications. IMPRESSION: Overall worsening of aeration with increasing airspace disease in the left lung and development of a small layering left pleural effusion. Persistent patchy perihilar opacities in the right lung. Endotracheal and enteric tubes remain in place. Tip of the ET tube approximately 1.2 cm above the holly. Consider slight retraction (1-2 cms). Chest x-ray - 02/26/20 - Procedure: XRAY Chest 1v Indication: Reason For Exam: ABN CHST Technique: One view of the chest Comparison: 02/24/2020 Findings: Endotracheal tube demonstrates slightly improved position, now roughly 3 cm above the holly. There is increased atelectasis at the right lung base. Consolidation at the right lung base appears unchanged, but there does appear to be decreased involvement of the upper lobe. There is still extensive consolidation at the left lung base, but aeration appears equivocally slightly improved, and there is less upper lobe involvement. Orogastric tube again demonstrated. Impression: Overall slightly improved bilateral infiltrates, over 2 days Improved endotracheal tube position Chest x-ray - 03/02/20 - Procedure: XRAY Chest 1v Indication: Shortness of breath Technique: One view of the chest Comparison: 03/01/2020 Findings: Left chest tube again demonstrated. No definite pneumothorax although overlying emphysema makes evaluation difficult. Previously demonstrated small right apical pneumothorax is not clearly evident on this exam. Stable satisfactory positions of endotracheal tube, orogastric tube, right jugular central venous catheter. Extensive bilateral subcutaneous emphysema is unchanged. Extensive bilateral right greater than left infiltrates are unchanged. Impression: Previously demonstrated small bilateral apical pneumothoraces are no longer evident. Otherwise essentially unchanged since previous day's exam Chest x-ray - 03/03/20 - Procedure: XRAY Chest 1v Indication: Dyspnea Technique: One view of the chest Comparison: 03/02/2020 Findings: Endotracheal tube, orogastric tube, left chest tube, right jugular central venous catheter remain in stable satisfactory positions. Small left apical pneumothorax was not visible on the previous day but appears similar to the 2019 exam. No definite left pneumothorax demonstrated. Extensive subcutaneous emphysema is unchanged. Extensive bilateral infiltrates are unchanged. 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 Complete Labs Test 03/02/20 05:44 03/03/20 03:50 03/04/20 03:30 03/04/20 12:15 Sodium Level 130 MMOL/L (136-145) 130 MMOL/L (136-145) 129 MMOL/L (136-145) Potassium Level 4.6 MMOL/L (3.5-5.1) 4.5 MMOL/L (3.5-5.1) 4.2 MMOL/L (3.5-5.1) Chloride Level 96 MMOL/L (98-107) 95 MMOL/L (98-107) 95 MMOL/L (98-107) Carbon Dioxide Level 29 MMOL/L (21-32) 29 MMOL/L (21-32) 30 MMOL/L (21-32) Anion Gap 5 mmol/L (5-15) 6 mmol/L (5-15) 4 mmol/L (5-15) Blood Urea Nitrogen 29 mg/dL (7-18) 30 mg/dL (7-18) 28 mg/dL (7-18) Creatinine 0.9 MG/DL (0.55-1.30) 0.9 MG/DL (0.55-1.30) 0.8 MG/DL (0.55-1.30) Estimat Glomerular Filtration Rate > 60 mL/min (>60) > 60 mL/min (>60) > 60 mL/min (>60) Glucose Level 142 MG/DL (74-106) 131 MG/DL (74-106) 121 MG/DL (74-106) Calcium Level 7.2 MG/DL (8.5-10.1) 7.1 MG/DL (8.5-10.1) 7.4 MG/DL (8.5-10.1) Phosphorus Level 2.6 MG/DL (2.5-4.9) 2.5 MG/DL (2.5-4.9) Magnesium Level 2.0 MG/DL (1.8-2.4) 2.2 MG/DL (1.8-2.4) White Blood Count 10.5 K/UL (4.8-10.8) Red Blood Count 2.78 M/UL (4.70-6.10) Hemoglobin 8.6 G/DL (14.2-18.0) Hematocrit 24.5 % (42.0-52.0) Mean Corpuscular Volume 88 FL (80-99) Mean Corpuscular Hemoglobin 30.9 PG (27.0-31.0) Mean Corpuscular Hemoglobin Concent 35.1 G/DL (32.0-36.0) Red Cell Distribution Width 14.2 % (11.6-14.8) Platelet Count 37 K/UL (150-450) Mean Platelet Volume 11.9 FL (6.5-10.1) Neutrophils (%) (Auto) % (45.0-75.0) Lymphocytes (%) (Auto) % (20.0-45.0) Monocytes (%) (Auto) % (1.0-10.0) Eosinophils (%) (Auto) % (0.0-3.0) Basophils (%) (Auto) % (0.0-2.0) Differential Total Cells Counted 100 Neutrophils % (Manual) 86 % (45-75) Lymphocytes % (Manual) 3 % (20-45) Monocytes % (Manual) 11 % (1-10) Eosinophils % (Manual) 0 % (0-3) Basophils % (Manual) 0 % (0-2) Band Neutrophils 0 % (0-8) Platelet Estimate Decreased Platelet Morphology Normal Hypochromasia 2+ Anisocytosis 1+ Spherocytes 2+ Prothrombin Time 15.4 SEC (9.30-11.50) Prothromb Time International Ratio 1.5 (0.9-1.1) Activated Partial Thromboplast Time 33 SEC (23-33) Total Bilirubin 10.5 MG/DL (0.2-1.0) Direct Bilirubin 8.8 MG/DL (0.0-0.3) Aspartate Amino Transf (AST/SGOT) 52 U/L (15-37) Alanine Aminotransferase (ALT/SGPT) 44 U/L (12-78) Alkaline Phosphatase 264 U/L (46-116) Total Protein 5.1 G/DL (6.4-8.2) Albumin 1.2 G/DL (3.4-5.0) Globulin 3.9 g/dL Albumin/Globulin Ratio 0.3 (1.0-2.7) Vancomycin Level Trough 34.1 ug/mL (5.0-12.0) Test 03/04/20 13:50 Vancomycin Level Trough 34.0 ug/mL (5.0-12.0) Laboratory Tests Test 03/04/20 03:30 03/04/20 12:15 03/04/20 13:50 Sodium Level 129 MMOL/L (136-145) L Potassium Level 4.2 MMOL/L (3.5-5.1) Chloride Level 95 MMOL/L (98-107) L Carbon Dioxide Level 30 MMOL/L (21-32) Anion Gap 4 mmol/L (5-15) L Blood Urea Nitrogen 28 mg/dL (7-18) H Creatinine 0.8 MG/DL (0.55-1.30) Estimat Glomerular Filtration Rate > 60 mL/min (>60) Glucose Level 121 MG/DL (74-106) H Calcium Level 7.4 MG/DL (8.5-10.1) L Phosphorus Level 2.5 MG/DL (2.5-4.9) Magnesium Level 2.2 MG/DL (1.8-2.4) Vancomycin Level Trough 34.1 ug/mL (5.0-12.0) H 34.0 ug/mL (5.0-12.0) H PTT Mixing Study Pending APTT Patient/Control Mix Pending Mix PTT Incubation Time Pending Mix PTT Normal/Saline 1:1 Immediate Pending Thrombin Time Normal Plasma Pending Current Medications Medications (Trade) Dose Ordered Sig/Cirilo Route PRN Reason Start Time Stop Time Status Last Admin Dose Admin Acetaminophen (Tylenol) 650 mg Q4H PRN ORAL Fever 02/22/20 14:15 03/23/20 14:14 02/28/20 17:52 Acetaminophen (Tylenol) 650 mg Q4H PRN ORAL Mild Pain (Pain Scale 1-3) 02/22/20 14:15 03/23/20 14:14 03/03/20 17:31 Acetaminophen (Tylenol) 650 mg Q4H PRN RECTAL Mild Pain (Pain Scale 1-3) 02/22/20 14:15 03/23/20 14:14 02/22/20 21:28 Acetaminophen (Tylenol) 650 mg Q4H PRN RECTAL FEVER 02/22/20 14:15 03/23/20 14:14 Chlorhexidine Gluconate (Maira-Hex 2%) 1 applic DAILY@2000 TOPIC 02/23/20 20:00 05/23/20 19:59 03/03/20 20:31 Dextrose (Dextrose 50%) 25 ml Q30M PRN IV Hypoglycemia 4/28/20 09:00 05/23/20 08:59 Dextrose (Dextrose 50%) 50 ml Q30M PRN IV Hypoglycemia 02/23/20 09:00 05/23/20 08:59 Diphenhydramine HCl (Benadryl) 25 mg Q6H PRN ORAL Itching/Pruritis 02/22/20 14:15 03/23/20 14:14 02/26/20 01:34 Doxycycline Monohydrate (Doxycycline Monohydrate) 100 mg EVERY 12 HOURS ORAL 03/01/20 09:00 03/08/20 08:59 03/04/20 09:04 Fentanyl Citrate 2500 mcg/Sodium Chloride 250 ml @ 0 mls/hr Q24H IV 03/01/20 19:45 03/08/20 19:44 03/04/20 01:49 Insulin Aspart (NovoLOG) Q6HR SUBQ 02/28/20 18:00 05/28/20 17:59 03/04/20 00:13 Metoclopramide HCl (Reglan) 5 mg Q6HR IVP 03/01/20 12:00 03/31/20 11:59 03/04/20 12:57 Midazolam HCl 100 ml @ 0 mls/hr Q24H IV 02/26/20 15:06 05/26/20 15:05 02/26/20 15:48 Norepinephrine Bitartrate 8 mg/ Dextrose 500 ml @ 0 mls/hr Q24H IV 02/23/20 19:01 03/24/20 19:00 03/03/20 12:36 Pantoprazole (Protonix) 40 mg DAILY IVP 02/23/20 09:30 03/24/20 09:29 03/04/20 09:04 Phenylephrine HCl 50 mg/Dextrose 250 ml @ 6 mls/hr Q24H IV 02/29/20 10:45 03/30/20 10:44 03/04/20 04:43 Piperacillin Sod/ Tazobactam Sod 3.375 gm/Dextrose 110 ml @ 27.5 mls/hr Q8H IVPB 03/01/20 01:00 03/08/20 00:59 03/04/20 09:04 Vancomycin HCl (Vanco rx to dose) 1 ea DAILY PRN MISC Per rx protocol 02/22/20 14:30 03/23/20 14:29 Anselmo Estrada MD March 04, 2020 17:50
[2020-03-04] MEDS: Norepinephrine Bitartrate 8 MG in D5W 500ml 492 ML IV SCH (18:20)
[2020-03-04] MEDS: Dyna-Hex 2% Top Sol 2oz TOPIC SCH (20:11)
[2020-03-05] VITALS (69 sets, daily range): BP systolic 76–151; BP diastolic 28–51
[2020-03-05] MEDS: Piperacillin/Tazobactam 3.375 GM in D5W 110 ML IVPB SCH ×3 (00:26→17:26)
[2020-03-05] MEDS: Metoclopramide 10mg/2ml Inj IVP SCH ×4 (00:26→17:25)
[2020-03-05] MEDS: Acetaminophen 650 MG SUPP RECTAL PRN ×2 (00:55→22:34)
[2020-03-05 04:56] LABS: HEMATOCRIT 19.4 % (42.0-52.0); MEAN CORPUSCULAR VOLUME 89 FL (80-99); PLATELET COUNT 56 K/UL (150-450); RED BLOOD COUNT 2.18 M/UL (4.70-6.10); RED CELL DISTRIBUTION WIDTH 14.6 % (11.6-14.8); WHITE BLOOD COUNT 7.9 K/UL (4.8-10.8)
[2020-03-05 05:18] LABS: HEMOGLOBIN 6.6 G/DL (14.2-18.0)
[2020-03-05 05:37] LABS: ALANINE AMINOTRANSFERASE 37 U/L (12-78); ALBUMIN 1.7 G/DL (3.4-5.0); ALBUMIN/GLOBULIN RATIO 0.5 (1.0-2.7); ALKALINE PHOSPHATASE 246 U/L (46-116); ANION GAP 5 mmol/L (5-15); ASPARTATE AMINO TRANSFERASE 44 U/L (15-37); BILIRUBIN,TOTAL 8.8 MG/DL (0.2-1.0); BLOOD UREA NITROGEN 31 mg/dL (7-18); CALCIUM 6.9 MG/DL (8.5-10.1); CARBON DIOXIDE 31 MMOL/L (21-32); CHLORIDE 95 MMOL/L (98-107); POTASSIUM 4.6 MMOL/L (3.5-5.1); SODIUM 131 MMOL/L (136-145)
[2020-03-05 05:38] LABS: BILIRUBIN,DIRECT 7.4 MG/DL (0.0-0.3)
[2020-03-05] MEDS: Norepinephrine Bitartrate 8 MG in D5W 500ml 492 ML IV SCH ×3 (05:53→22:12)
[2020-03-05] MEDS: NovoLOG Insulin Flexpen SUBQ SCH ×4 (06:32→18:37)
[2020-03-05] MEDS: Pantoprazole Inj IVP SCH (08:49)
[2020-03-05] MEDS: Phenylephrine 50 MG in D5W 245 ML IV SCH (08:55)
[2020-03-05] MEDS: fentaNYL Citrate 2,500 MCG in NS 200 ML IV SCH ×2 (08:55→21:21)
--- NOTE | 2020-03-05 11:54 | Pulmonology Progress Note ---
Subjective ROS Limited/Unobtainable: Yes Interval Events: Remains intubtaed; was intubated on 02/22/20 Constitutional: Reports: fatigue, other - on vent and pressors ; Denies: fever HEENT: Repors: no symptoms Respiratory: Reports: no symptoms Cardiovascular: Reports: no symptoms Gastrointestinal/Abdominal: Denies: nausea, vomiting, diarrhea Genitourinary: Reports: no symptoms Psychiatric: Reports: other - NA Skin: Denies: rash Endocrine: Reports: no symptoms Musculoskeletal: Reports: other - NA Allergies: Coded Allergies: No Known Allergies (Unverified , 01/19/19) All Systems: reviewed and negative except above Subjective seen and evaluated Discussed with RN Left chest tube placed by surgery Objective Last 24 Hour Vital Signs Date Time Temp Pulse Resp B/P (MAP) Pulse Ox O2 Delivery O2 Flow Rate FiO2 03/05/20 11:00 91 22 125/43 (70) 98 03/05/20 11:00 22 Mechanical Ventilator 80 03/05/20 11:00 125/43 03/05/20 10:30 93 22 113/45 (67) 98 03/05/20 10:00 92 23 135/46 (75) 95 03/05/20 10:00 22 Mechanical Ventilator 80 03/05/20 10:00 135/46 03/05/20 09:00 25 Mechanical Ventilator 80 03/05/20 09:00 140/49 03/05/20 09:00 95 24 140/49 (79) 95 03/05/20 08:55 22 Mechanical Ventilator 80 03/05/20 08:30 93 26 150/50 (83) 98 03/05/20 08:00 88 03/05/20 08:00 22 Mechanical Ventilator 80 03/05/20 08:00 122/44 03/05/20 08:00 98.3 88 22 122/44 (70) 96 03/05/20 08:00 Mechanical Ventilator 03/05/20 08:00 80 03/05/20 07:30 92 21 132/47 (75) 98 03/05/20 07:06 91 24 80 03/05/20 07:00 24 Mechanical Ventilator 80 03/05/20 07:00 144/48 03/05/20 07:00 94 22 144/48 (80) 97 03/05/20 06:45 93 23 151/48 (82) 98 03/05/20 06:30 92 23 03/05/20 06:30 92 23 133/49 (77) 98 03/05/20 06:15 89 22 121/42 (68) 97 03/05/20 06:00 24 Mechanical Ventilator 80 03/05/20 06:00 125/42 03/05/20 06:00 91 23 125/42 (69) 97 03/05/20 05:53 92/37 03/05/20 05:45 95 22 92/37 (55) 94 03/05/20 05:30 92 23 110/40 (63) 96 03/05/20 05:15 94 23 114/42 (66) 96 03/05/20 05:00 96 22 119/46 (70) 97 03/05/20 05:00 21 Mechanical Ventilator 80 03/05/20 05:00 119/46 03/05/20 04:45 101 21 129/46 (73) 96 03/05/20 04:30 99 21 142/49 (80) 97 03/05/20 04:15 97 21 128/43 (71) 97 03/05/20 04:00 Mechanical Ventilator 03/05/20 04:00 100 03/05/20 04:00 80 03/05/20 04:00 23 Mechanical Ventilator 80 03/05/20 04:00 121/39 03/05/20 04:00 101.2 100 22 121/39 (66) 97 03/05/20 03:45 101 21 126/45 (72) 98 03/05/20 03:30 113/36 03/05/20 03:30 100 21 113/38 (63) 98 03/05/20 03:15 101 21 128/42 (70) 98 03/05/20 03:15 128/42 03/05/20 03:13 104 22 80 03/05/20 03:00 100 22 101/38 (59) 98 03/05/20 03:00 28 Mechanical Ventilator 80 03/05/20 03:00 101/38 03/05/20 02:45 101 21 99/39 (59) 98 03/05/20 02:45 99/36 03/05/20 02:30 98/38 03/05/20 02:30 102 21 98/38 (58) 98 03/05/20 02:15 106/38 03/05/20 02:15 104 21 106/38 (60) 98 03/05/20 02:00 106 21 105/41 (62) 98 03/05/20 02:00 28 Mechanical Ventilator 80 03/05/20 02:00 105/41 03/05/20 01:45 106 22 101/41 (61) 99 03/05/20 01:45 101/41 03/05/20 01:30 105/41 03/05/20 01:30 107 22 105/41 (62) 98 03/05/20 01:20 102.5 03/05/20 01:15 107 22 86/36 (53) 97 03/05/20 01:15 86/36 03/05/20 01:00 109 23 103/43 (63) 97 03/05/20 01:00 30 Mechanical Ventilator 80 03/05/20 01:00 103/43 03/05/20 00:45 102.5 110 23 97/39 (58) 96 03/05/20 00:30 109 23 96/39 (58) 95 03/05/20 00:15 112 22 112/47 (68) 97 03/05/20 00:00 107 24 110/44 (66) 96 03/05/20 00:00 28 Mechanical Ventilator 80 03/05/20 00:00 110/44 03/05/20 00:00 Mechanical Ventilator 03/04/20 23:45 109 25 105/44 (64) 95 03/04/20 23:30 110 24 107/45 (65) 95 03/04/20 23:15 109 25 107/45 (65) 95 03/04/20 23:00 28 Mechanical Ventilator 80 03/04/20 23:00 104/47 03/04/20 23:00 110 25 104/47 (66) 96 03/04/20 22:56 115 25 80 03/04/20 22:30 113 25 110/47 (68) 96 03/04/20 22:00 112 26 112/48 (69) 95 03/04/20 22:00 26 Mechanical Ventilator 80 03/04/20 22:00 112/48 03/04/20 21:45 114/45 03/04/20 21:30 109/51 03/04/20 21:30 114 26 109/51 (70) 94 5/8/20 21:26 98.9 03/04/20 21:15 110/47 03/04/20 21:00 116 27 116/48 (70) 94 03/04/20 21:00 27 Mechanical Ventilator 80 03/04/20 21:00 116/48 03/04/20 20:45 114/49 03/04/20 20:30 115 27 109/48 (68) 94 03/04/20 20:12 30 Mechanical Ventilator 80 03/04/20 20:00 80 03/04/20 20:00 Mechanical Ventilator 03/04/20 20:00 98.9 118 25 113/45 (67) 95 03/04/20 20:00 25 Mechanical Ventilator 80 03/04/20 20:00 113/45 03/04/20 20:00 118 03/04/20 19:30 117 23 111/47 (68) 96 03/04/20 19:24 117 26 80 03/04/20 19:00 116 28 108/49 (68) 95 03/04/20 19:00 28 Mechanical Ventilator 80 03/04/20 19:00 108/49 03/04/20 18:45 117 27 106/44 (64) 94 03/04/20 18:30 117 29 101/46 (64) 93 03/04/20 18:20 98/46 03/04/20 18:00 30 Mechanical Ventilator 80 03/04/20 18:00 77/42 03/04/20 18:00 117 32 77/42 (54) 92 03/04/20 17:45 118 31 103/48 (66) 92 03/04/20 17:30 119 32 99/46 (63) 91 03/04/20 17:00 118 32 109/48 (68) 92 03/04/20 17:00 30 Mechanical Ventilator 80 03/04/20 17:00 109/48 03/04/20 16:55 116 30 80 03/04/20 16:45 115 33 108/50 (69) 90 03/04/20 16:30 117 30 106/46 (66) 88 03/04/20 16:00 Mechanical Ventilator 03/04/20 16:00 80 03/04/20 16:00 24 Mechanical Ventilator 80 03/04/20 16:00 122/52 03/04/20 16:00 113 03/04/20 16:00 98.5 116 33 122/52 (75) 91 03/04/20 15:30 115 32 116/48 (70) 92 03/04/20 15:20 120 32 80 03/04/20 15:15 114 30 101/47 (65) 91 03/04/20 15:00 28 Mechanical Ventilator 80 03/04/20 15:00 99/48 03/04/20 15:00 116 31 99/48 (65) 94 03/04/20 14:45 113 31 100/49 (66) 88 03/04/20 14:30 117 34 265/112 (162) 92 03/04/20 14:15 118 35 242/125 (164) 91 03/04/20 14:00 32 Mechanical Ventilator 80 03/04/20 14:00 229/90 03/04/20 14:00 118 35 229/90 (136) 90 03/04/20 13:45 117 36 226/88 (134) 91 03/04/20 13:30 116 36 164/126 (139) 92 03/04/20 13:20 117 36 80 03/04/20 13:15 117 35 261/117 (165) 92 03/04/20 13:00 36 Mechanical Ventilator 80 03/04/20 13:00 166/125 03/04/20 13:00 115 34 166/125 (139) 93 03/04/20 12:45 114 34 126/106 (113) 92 03/04/20 12:30 99.4 114 33 118/55 (76) 92 03/04/20 12:15 113 33 127/56 (79) 92 03/04/20 12:00 108 32 83/42 (56) 86 03/04/20 12:00 80 03/04/20 12:00 20 Mechanical Ventilator 80 03/04/20 12:00 83/42 03/04/20 12:00 Mechanical Ventilator 03/04/20 12:00 108 03/04/20 11:53 108 32 109/46 (67) 89 Intake and Output 03/04/20 03/05/20 19:00 07:00 Intake Total 743.29 ml 1469.62 ml Output Total 765 ml 700 ml Balance -21.71 ml 769.62 ml IV Total 573.29 ml 1349.62 ml Tube Feeding 110 ml 120 ml Other 60 ml Output Urine Total 540 ml 700 ml Chest Tube Drainage Total 225 ml General Appearance: other - + vent and pressors HEENT: normocephalic, atraumatic, no JVD, other - oral - intubated Respiratory/Chest: chest wall non-tender, decreased breath sounds, other - hAS SUB CUT EMPHYSEMA LEWFT SIDE Cardiovascular: normal peripheral pulses Abdomen: normal bowel sounds, soft, non tender, no organomegaly, non distended Genitourinary: other - + rush Extremities: no cyanosis Skin: no rash Neurologic/Psychiatric: other - has subcut emphysema R > l Lymphatic: no neck adenopathy Musculoskeletal: no effusion Laboratory Tests 03/04/20 12:15: Vancomycin Level Trough 34.1H 03/04/20 13:50: Vancomycin Level Trough 34.0H, PTT Mixing Study [Pending], APTT Patient/Control Mix [Pending], Mix PTT Incubation Time [Pending], Mix PTT Normal/Saline 1:1 Immediate [Pending], Thrombin Time Normal Plasma [Pending], Lactate Dehydrogenase 591H 03/05/20 04:00: White Blood Count 7.9, Red Blood Count 2.18L, Hemoglobin 6.6*L, Hematocrit 19.4L , Mean Corpuscular Volume 89, Mean Corpuscular Hemoglobin 30.5, Mean Corpuscular Hemoglobin Concent 34.3, Red Cell Distribution Width 14.6, Platelet Count 56L, Mean Platelet Volume 11.5H, Neutrophils (%) (Auto) , Lymphocytes (%) (Auto) , Monocytes (%) (Auto) , Eosinophils (%) (Auto) , Basophils (%) (Auto) , Differential Total Cells Counted 100, Neutrophils % (Manual) 88H, Lymphocytes % (Manual) 4L, Monocytes % (Manual) 6, Eosinophils % (Manual) 1, Basophils % ( Manual) 1, Band Neutrophils 0, Platelet Estimate DecreasedL, Platelet Morphology Normal, Hypochromasia 4+, Anisocytosis 1+, Spherocytes 3+, Sodium Level 131L, Potassium Level 4.6, Chloride Level 95L, Carbon Dioxide Level 31, Anion Gap 5, Blood Urea Nitrogen 31H, Creatinine 1.0, Estimat Glomerular Filtration Rate > 60, Glucose Level 141H, Calcium Level 6.9L, Total Bilirubin 8.8H, Direct Bilirubin 7.4H, Aspartate Amino Transf (AST/SGOT) 44H, Alanine Aminotransferase (ALT/SGPT) 37, Alkaline Phosphatase 246H, Total Protein 5.1L, Albumin 1.7L, Globulin 3.4, Albumin/Globulin Ratio 0.5L, Random Vancomycin Level 28.3 Current Medications Medications (Trade) Dose Ordered Sig/Cirilo Route PRN Reason Start Time Stop Time Status Last Admin Dose Admin Acetaminophen (Tylenol) 650 mg Q4H PRN ORAL Fever 02/22/20 14:15 03/23/20 14:14 02/28/20 17:52 Acetaminophen (Tylenol) 650 mg Q4H PRN ORAL Mild Pain (Pain Scale 1-3) 02/22/20 14:15 03/23/20 14:14 03/03/20 17:31 Acetaminophen (Tylenol) 650 mg Q4H PRN RECTAL Mild Pain (Pain Scale 1-3) 02/22/20 14:15 03/23/20 14:14 02/22/20 21:28 Acetaminophen (Tylenol) 650 mg Q4H PRN RECTAL FEVER 02/22/20 14:15 03/23/20 14:14 03/05/20 00:55 Chlorhexidine Gluconate (Maira-Hex 2%) 1 applic DAILY@2000 TOPIC 02/23/20 20:00 05/23/20 19:59 03/04/20 20:11 Dextrose (Dextrose 50%) 25 ml Q30M PRN IV Hypoglycemia 02/23/20 09:00 05/23/20 08:59 Dextrose (Dextrose 50%) 50 ml Q30M PRN IV Hypoglycemia 02/23/20 09:00 05/23/20 08:59 Diphenhydramine HCl (Benadryl) 25 mg Q6H PRN ORAL Itching/Pruritis 02/22/20 14:15 03/23/20 14:14 02/26/20 01:34 Fentanyl Citrate 2500 mcg/Sodium Chloride 250 ml @ 0 mls/hr Q24H IV 03/01/20 19:45 03/08/20 19:44 03/05/20 08:55 Insulin Aspart (NovoLOG) Q6HR SUBQ 02/28/20 18:00 05/28/20 17:59 03/05/20 06:32 Metoclopramide HCl (Reglan) 5 mg Q6HR IVP 03/01/20 12:00 03/31/20 11:59 03/05/20 06:31 Midazolam HCl 100 ml @ 0 mls/hr Q24H IV 02/26/20 15:06 05/26/20 15:05 02/26/20 15:48 Norepinephrine Bitartrate 8 mg/ Dextrose 500 ml @ 0 mls/hr Q24H IV 02/23/20 19:01 03/24/20 19:00 03/05/20 05:53 Pantoprazole (Protonix) 40 mg DAILY IVP 02/23/20 09:30 03/24/20 09:29 03/05/20 08:49 Phenylephrine HCl 50 mg/Dextrose 250 ml @ 6 mls/hr Q24H IV 02/29/20 10:45 03/30/20 10:44 03/04/20 04:43 Piperacillin Sod/ Tazobactam Sod 3.375 gm/Dextrose 110 ml @ 27.5 mls/hr Q8H IVPB 03/01/20 01:00 03/08/20 00:59 03/05/20 08:49 Vancomycin HCl (Vanco rx to dose) 1 ea DAILY PRN MISC Per rx protocol 02/22/20 14:30 03/23/20 14:29 Assessment/Plan Assessment/Plan IMPRESSION: 1. Respiratory failure. 2. Bilateral pneumonia. + COVID 19 3. Pulmonary edema. 4. Diabetes mellitus. 5. Left PTX with subcut emphysema; s/p chest tube DISCUSSION: Positive COVID 19 pcr The patient is critically ill at this point in time. Poor prognosis Continue pressors Continue broad-spectrum antibiotics. Continue respiratory support; will adjust vent settings I will follow carefully. S/p chest tube Continue Ac mode 80 FiO2 and PEEP 5 SaO2 97% Will decrease PEEP due to PTX Martine Rodriguez Omar Syed MD March 05, 2020 11:54
--- NOTE | 2020-03-05 12:15 | Diagnostic Imaging Report ---
EXAM: XR Chest, 1 View CLINICAL HISTORY: INFECT TECHNIQUE: Frontal view of the chest. COMPARISON: Chest radiograph On 03/03/2020 FINDINGS: Hardware: Endotracheal tube terminates in the region of the mid thoracic trachea. Enteric tube courses past the diaphragm and out of the field of view. Right internal jugular central venous catheter terminates in the region of the SVC. Left-sided chest tube. Lungs/pleura: No definite pneumothorax identified, but evaluation is limited by artifact from prominent overlying subcutaneous emphysema. Patchy opacities throughout the lungs, worst in the left perihilar region and lung bases. Heart/mediastinum: Normal. No cardiomegaly. Soft tissues: Prominent subcutaneous emphysema. Bones: No acute fracture. Upper abdomen: Normal. IMPRESSION: 1. Endotracheal tube terminates in the region of the mid thoracic trachea. Enteric tube courses past the diaphragm and out of the field of view. Right internal jugular central venous catheter terminates in the region of the SVC. Left-sided chest tube. 2. No definite pneumothorax identified, but evaluation is limited by artifact from prominent overlying subcutaneous emphysema. 3. Patchy opacities throughout the lungs, worst in the left perihilar region and lung bases.
--- NOTE | 2020-03-05 12:16 | Nephrology Progress Note ---
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 # h/o DVT # schizophrenia, bipolar #thrombocytopenia #hypokalemia, hypophos - repleted #hypoalbuminemia - prbc transfusion x1 today - albumin 25g x1 today - monitor sodium - replete lytes, phos and K prn - continue icu care - off IVF - replete lytes prn - vasopressor per pulmonary - vent management per pulm - antibiotics per ID - check free calcium in am - monitor lytes - BG control - holding antihypertensive Subjective ROS Limited/Unobtainable: Yes Subjective labs reviewed albumin markedly low prbc tranfusion today on levo drip sodium low - but stable Fio2 80 remains intubated Objective Objective Last 24 Hour Vital Signs Date Time Temp Pulse Resp B/P (MAP) Pulse Ox O2 Delivery O2 Flow Rate FiO2 03/05/20 11:30 86 22 100/38 (58) 97 03/05/20 11:00 91 22 125/43 (70) 98 03/05/20 11:00 22 Mechanical Ventilator 80 03/05/20 11:00 125/43 03/05/20 10:30 93 22 113/45 (67) 98 03/05/20 10:00 92 23 135/46 (75) 95 03/05/20 10:00 22 Mechanical Ventilator 80 03/05/20 10:00 135/46 03/05/20 09:00 25 Mechanical Ventilator 80 03/05/20 09:00 140/49 03/05/20 09:00 95 24 140/49 (79) 95 03/05/20 08:55 22 Mechanical Ventilator 80 03/05/20 08:30 93 26 150/50 (83) 98 03/05/20 08:00 88 03/05/20 08:00 22 Mechanical Ventilator 80 03/05/20 08:00 122/44 03/05/20 08:00 98.3 88 22 122/44 (70) 96 03/05/20 08:00 Mechanical Ventilator 03/05/20 08:00 80 03/05/20 07:30 92 21 132/47 (75) 98 03/05/20 07:06 91 24 80 03/05/20 07:00 24 Mechanical Ventilator 80 03/05/20 07:00 144/48 03/05/20 07:00 94 22 144/48 (80) 97 03/05/20 06:45 93 23 151/48 (82) 98 03/05/20 06:30 92 23 03/05/20 06:30 92 23 133/49 (77) 98 03/05/20 06:15 89 22 121/42 (68) 97 03/05/20 06:00 24 Mechanical Ventilator 80 03/05/20 06:00 125/42 03/05/20 06:00 91 23 125/42 (69) 97 03/05/20 05:53 92/37 03/05/20 05:45 95 22 92/37 (55) 94 03/05/20 05:30 92 23 110/40 (63) 96 03/05/20 05:15 94 23 114/42 (66) 96 03/05/20 05:00 96 22 119/46 (70) 97 03/05/20 05:00 21 Mechanical Ventilator 80 03/05/20 05:00 119/46 03/05/20 04:45 101 21 129/46 (73) 96 03/05/20 04:30 99 21 142/49 (80) 97 03/05/20 04:15 97 21 128/43 (71) 97 03/05/20 04:00 Mechanical Ventilator 03/05/20 04:00 100 03/05/20 04:00 80 03/05/20 04:00 23 Mechanical Ventilator 80 03/05/20 04:00 121/39 03/05/20 04:00 101.2 100 22 121/39 (66) 97 03/05/20 03:45 101 21 126/45 (72) 98 03/05/20 03:30 113/36 03/05/20 03:30 100 21 113/38 (63) 98 03/05/20 03:15 101 21 128/42 (70) 98 03/05/20 03:15 128/42 03/05/20 03:13 104 22 80 03/05/20 03:00 100 22 101/38 (59) 98 03/05/20 03:00 28 Mechanical Ventilator 80 03/05/20 03:00 101/38 03/05/20 02:45 101 21 99/39 (59) 98 03/05/20 02:45 99/36 03/05/20 02:30 98/38 03/05/20 02:30 102 21 98/38 (58) 98 03/05/20 02:15 106/38 03/05/20 02:15 104 21 106/38 (60) 98 03/05/20 02:00 106 21 105/41 (62) 98 03/05/20 02:00 28 Mechanical Ventilator 80 03/05/20 02:00 105/41 03/05/20 01:45 106 22 101/41 (61) 99 03/05/20 01:45 101/41 03/05/20 01:30 105/41 03/05/20 01:30 107 22 105/41 (62) 98 03/05/20 01:20 102.5 03/05/20 01:15 107 22 86/36 (53) 97 03/05/20 01:15 86/36 03/05/20 01:00 109 23 103/43 (63) 97 03/05/20 01:00 30 Mechanical Ventilator 80 03/05/20 01:00 103/43 03/05/20 00:45 102.5 110 23 97/39 (58) 96 03/05/20 00:30 109 23 96/39 (58) 95 03/05/20 00:15 112 22 112/47 (68) 97 03/05/20 00:00 107 24 110/44 (66) 96 03/05/20 00:00 28 Mechanical Ventilator 80 03/05/20 00:00 110/44 03/05/20 00:00 Mechanical Ventilator 03/04/20 23:45 109 25 105/44 (64) 95 03/04/20 23:30 110 24 107/45 (65) 95 03/04/20 23:15 109 25 107/45 (65) 95 03/04/20 23:00 28 Mechanical Ventilator 80 03/04/20 23:00 104/47 03/04/20 23:00 110 25 104/47 (66) 96 03/04/20 22:56 115 25 80 03/04/20 22:30 113 25 110/47 (68) 96 03/04/20 22:00 112 26 112/48 (69) 95 03/04/20 22:00 26 Mechanical Ventilator 80 03/04/20 22:00 112/48 03/04/20 21:45 114/45 03/04/20 21:30 109/51 03/04/20 21:30 114 26 109/51 (70) 94 03/04/20 21:26 98.9 03/04/20 21:15 110/47 03/04/20 21:00 116 27 116/48 (70) 94 03/04/20 21:00 27 Mechanical Ventilator 80 03/04/20 21:00 116/48 03/04/20 20:45 114/49 03/04/20 20:30 115 27 109/48 (68) 94 03/04/20 20:12 30 Mechanical Ventilator 80 03/04/20 20:00 80 03/04/20 20:00 Mechanical Ventilator 03/04/20 20:00 98.9 118 25 113/45 (67) 95 03/04/20 20:00 25 Mechanical Ventilator 80 03/04/20 20:00 113/45 03/04/20 20:00 118 03/04/20 19:30 117 23 111/47 (68) 96 03/04/20 19:24 117 26 80 03/04/20 19:00 116 28 108/49 (68) 95 03/04/20 19:00 28 Mechanical Ventilator 80 03/04/20 19:00 108/49 03/04/20 18:45 117 27 106/44 (64) 94 03/04/20 18:30 117 29 101/46 (64) 93 03/04/20 18:20 98/46 03/04/20 18:00 30 Mechanical Ventilator 80 03/04/20 18:00 77/42 03/04/20 18:00 117 32 77/42 (54) 92 03/04/20 17:45 118 31 103/48 (66) 92 03/04/20 17:30 119 32 99/46 (63) 91 03/04/20 17:00 118 32 109/48 (68) 92 03/04/20 17:00 30 Mechanical Ventilator 80 03/04/20 17:00 109/48 03/04/20 16:55 116 30 80 03/04/20 16:45 115 33 108/50 (69) 90 03/04/20 16:30 117 30 106/46 (66) 88 03/04/20 16:00 Mechanical Ventilator 03/04/20 16:00 80 03/04/20 16:00 24 Mechanical Ventilator 80 03/04/20 16:00 122/52 03/04/20 16:00 113 03/04/20 16:00 98.5 116 33 122/52 (75) 91 03/04/20 15:30 115 32 116/48 (70) 92 03/04/20 15:20 120 32 80 03/04/20 15:15 114 30 101/47 (65) 91 03/04/20 15:00 28 Mechanical Ventilator 80 03/04/20 15:00 99/48 03/04/20 15:00 116 31 99/48 (65) 94 03/04/20 14:45 113 31 100/49 (66) 88 03/04/20 14:30 117 34 265/112 (162) 92 03/04/20 14:15 118 35 242/125 (164) 91 03/04/20 14:00 32 Mechanical Ventilator 80 03/04/20 14:00 229/90 03/04/20 14:00 118 35 229/90 (136) 90 03/04/20 13:45 117 36 226/88 (134) 91 03/04/20 13:30 116 36 164/126 (139) 03/04/20 13:20 117 36 80 03/04/20 13:15 117 35 261/117 (165) 03/04/20 13:00 36 Mechanical Ventilator 80 03/04/20 13:00 166/125 03/04/20 13:00 115 34 166/125 (139) 93 03/04/20 12:45 114 34 126/106 (113) 03/04/20 12:30 99.4 114 33 118/55 (76) 92 03/04/20 12:15 113 33 127/56 (79) 92 Intake and Output 03/04/20 03/05/20 19:00 07:00 Intake Total 743.29 ml 1469.62 ml Output Total 765 ml 700 ml Balance -21.71 ml 769.62 ml IV Total 573.29 ml 1349.62 ml Tube Feeding 110 ml 120 ml Other 60 ml Output Urine Total 540 ml 700 ml Chest Tube Drainage Total 225 ml Laboratory Tests 03/04/20 12:15: Vancomycin Level Trough 34.1H 03/04/20 13:50: Vancomycin Level Trough 34.0H, PTT Mixing Study [Pending], APTT Patient/Control Mix [Pending], Mix PTT Incubation Time [Pending], Mix PTT Normal/Saline 1:1 Immediate [Pending], Thrombin Time Normal Plasma [Pending], Lactate Dehydrogenase 591H 03/05/20 04:00: White Blood Count 7.9, Red Blood Count 2.18L, Hemoglobin 6.6*L, Hematocrit 19.4L , Mean Corpuscular Volume 89, Mean Corpuscular Hemoglobin 30.5, Mean Corpuscular Hemoglobin Concent 34.3, Red Cell Distribution Width 14.6, Platelet Count 56L, Mean Platelet Volume 11.5H, Neutrophils (%) (Auto) , Lymphocytes (%) (Auto) , Monocytes (%) (Auto) , Eosinophils (%) (Auto) , Basophils (%) (Auto) , Differential Total Cells Counted 100, Neutrophils % (Manual) 88H, Lymphocytes % (Manual) 4L, Monocytes % (Manual) 6, Eosinophils % (Manual) 1, Basophils % ( Manual) 1, Band Neutrophils 0, Platelet Estimate DecreasedL, Platelet Morphology Normal, Hypochromasia 4+, Anisocytosis 1+, Spherocytes 3+, Sodium Level 131L, Potassium Level 4.6, Chloride Level 95L, Carbon Dioxide Level 31, Anion Gap 5, Blood Urea Nitrogen 31H, Creatinine 1.0, Estimat Glomerular Filtration Rate > 60, Glucose Level 141H, Calcium Level 6.9L, Total Bilirubin 8.8H, Direct Bilirubin 7.4H, Aspartate Amino Transf (AST/SGOT) 44H, Alanine Aminotransferase (ALT/SGPT) 37, Alkaline Phosphatase 246H, Total Protein 5.1L, Albumin 1.7L, Globulin 3.4, Albumin/Globulin Ratio 0.5L, Random Vancomycin Level 28.3 Height (Feet): 5 Height (Inches): 5.00 Weight (Pounds): 145 Objective General Appearance: other - intubated Lines, tubes and drains: peripheral HEENT: normocephalic, atraumatic, other - dry mucous membranes Neck: non-tender, normal alignment Respiratory/Chest: rhonchi - bilaterally Cardiovascular/Chest: normal peripheral pulses, normal rate Abdomen: soft, hypoactive bowel sounds Extremities: normal range of motion, no calf tenderness, non-pitting, no edema Skin Exam: normal pigmentation, warm/dry Dwayne Salas M.D. March 05, 2020 12:16
--- NOTE | 2020-03-05 16:15 | Cardiac Electrophysiology PN ---
Assessment/Plan Assessment/Plan 1. Respiratory failure due to COVID pneumonia and CHF as BNP is more than 2000. Echo EF 50%. His white count however is only 7.2 with lymphopenia On the Vent 80% Fio2, PEEP 5 2. Septic shock likely due to pneumonia and dehydration. On Levo 20 and Abx. 3. CXR, Since 02/26/2020, interim development of small bilateral pneumothoraces, right greater than left, and extensive subcutaneous emphysema. There may also be minimal pneumomediastinum. S/P Left chest tube 03/02/20 4. Hypernatremia, resolved with IV fluids. 5. Dehydration. 6. Severe anemia s/p 2 units PRBC today DW Dr. Sales Subjective Subjective In ICU off Levo on the vent with Fio2 80% and PEEP 5. EF 50%. Covid PCR is positive. S/P Left chest tube placement 03/02/[address] Sales and draining to water seal Had 2 units of PRBC Objective Last 24 Hour Vital Signs Date Time Temp Pulse Resp B/P (MAP) Pulse Ox O2 Delivery O2 Flow Rate FiO2 03/05/20 15:45 85 20 108/37 (60) 99 03/05/20 15:30 85 20 119/41 (67) 99 03/05/20 15:24 86 20 119/39 (65) 98 03/05/20 15:20 85 20 80 03/05/20 15:15 88 20 76/28 (44) 97 03/05/20 15:00 89 19 119/42 (67) 99 03/05/20 15:00 24 Mechanical Ventilator 80 03/05/20 15:00 119/42 03/05/20 14:46 99/38 03/05/20 14:45 86 22 100/39 (59) 98 03/05/20 14:30 86 21 99/38 (58) 98 03/05/20 14:00 89 21 89/37 (54) 96 03/05/20 14:00 22 Mechanical Ventilator 80 03/05/20 14:00 89/37 03/05/20 13:45 88 22 93/37 (55) 97 03/05/20 13:30 91 22 114/41 (65) 99 03/05/20 13:00 92 22 112/41 (64) 99 03/05/20 13:00 22 Mechanical Ventilator 80 03/05/20 13:00 112/41 03/05/20 12:30 86 22 101/38 (59) 98 03/05/20 12:00 Mechanical Ventilator 03/05/20 12:00 86 03/05/20 12:00 80 03/05/20 12:00 98.1 87 22 101/38 (59) 97 03/05/20 12:00 22 Mechanical Ventilator 80 03/05/20 12:00 101/38 03/05/20 11:30 86 22 100/38 (58) 97 03/05/20 11:09 87 22 80 03/05/20 11:00 91 22 125/43 (70) 98 03/05/20 11:00 22 Mechanical Ventilator 80 03/05/20 11:00 125/43 03/05/20 10:30 93 22 113/45 (67) 98 03/05/20 10:00 92 23 135/46 (75) 95 03/05/20 10:00 22 Mechanical Ventilator 80 03/05/20 10:00 135/46 03/05/20 09:00 25 Mechanical Ventilator 80 03/05/20 09:00 140/49 03/05/20 09:00 95 24 140/49 (79) 95 03/05/20 08:55 22 Mechanical Ventilator 80 03/05/20 08:30 93 26 150/50 (83) 98 03/05/20 08:00 88 03/05/20 08:00 22 Mechanical Ventilator 80 03/05/20 08:00 122/44 03/05/20 08:00 98.3 88 22 122/44 (70) 96 03/05/20 08:00 Mechanical Ventilator 03/05/20 08:00 80 03/05/20 07:30 92 21 132/47 (75) 98 03/05/20 07:06 91 24 80 03/05/20 07:00 24 Mechanical Ventilator 80 03/05/20 07:00 144/48 03/05/20 07:00 94 22 144/48 (80) 97 03/05/20 06:45 93 23 151/48 (82) 98 03/05/20 06:30 92 23 03/05/20 06:30 92 23 133/49 (77) 98 03/05/20 06:15 89 22 121/42 (68) 97 03/05/20 06:00 24 Mechanical Ventilator 80 03/05/20 06:00 125/42 03/05/20 06:00 91 23 125/42 (69) 97 03/05/20 05:53 92/37 03/05/20 05:45 95 22 92/37 (55) 94 03/05/20 05:30 92 23 110/40 (63) 96 03/05/20 05:15 94 23 114/42 (66) 96 03/05/20 05:00 96 22 119/46 (70) 97 03/05/20 05:00 21 Mechanical Ventilator 80 03/05/20 05:00 119/46 03/05/20 04:45 101 21 129/46 (73) 96 03/05/20 04:30 99 21 142/49 (80) 97 03/05/20 04:15 97 21 128/43 (71) 97 03/05/20 04:00 Mechanical Ventilator 03/05/20 04:00 100 03/05/20 04:00 80 03/05/20 04:00 23 Mechanical Ventilator 80 03/05/20 04:00 121/39 03/05/20 04:00 101.2 100 22 121/39 (66) 97 03/05/20 03:45 101 21 126/45 (72) 98 03/05/20 03:30 113/36 03/05/20 03:30 100 21 113/38 (63) 98 03/05/20 03:15 101 21 128/42 (70) 98 03/05/20 03:15 128/42 03/05/20 03:13 104 22 80 03/05/20 03:00 100 22 101/38 (59) 98 03/05/20 03:00 28 Mechanical Ventilator 80 03/05/20 03:00 101/38 03/05/20 02:45 101 21 99/39 (59) 98 03/05/20 02:45 99/36 03/05/20 02:30 98/38 03/05/20 02:30 102 21 98/38 (58) 98 03/05/20 02:15 106/38 03/05/20 02:15 104 21 106/38 (60) 98 03/05/20 02:00 106 21 105/41 (62) 98 03/05/20 02:00 28 Mechanical Ventilator 80 03/05/20 02:00 105/41 03/05/20 01:45 106 22 101/41 (61) 99 03/05/20 01:45 101/41 03/05/20 01:30 105/41 03/05/20 01:30 107 22 105/41 (62) 98 03/05/20 01:20 102.5 03/05/20 01:15 107 22 86/36 (53) 97 03/05/20 01:15 86/36 03/05/20 01:00 109 23 103/43 (63) 97 03/05/20 01:00 30 Mechanical Ventilator 80 03/05/20 01:00 103/43 03/05/20 00:45 102.5 110 23 97/39 (58) 96 03/05/20 00:30 109 23 96/39 (58) 95 03/05/20 00:15 112 22 112/47 (68) 97 03/05/20 00:00 107 24 110/44 (66) 96 03/05/20 00:00 28 Mechanical Ventilator 80 03/05/20 00:00 110/44 03/05/20 00:00 Mechanical Ventilator 03/04/20 23:45 109 25 105/44 (64) 95 03/04/20 23:30 110 24 107/45 (65) 95 03/04/20 23:15 109 25 107/45 (65) 95 03/04/20 23:00 28 Mechanical Ventilator 80 03/04/20 23:00 104/47 03/04/20 23:00 110 25 104/47 (66) 96 03/04/20 22:56 115 25 80 03/04/20 22:30 113 25 110/47 (68) 96 03/04/20 22:00 112 26 112/48 (69) 95 03/04/20 22:00 26 Mechanical Ventilator 80 03/04/20 22:00 112/48 03/04/20 21:45 114/45 03/04/20 21:30 109/51 03/04/20 21:30 114 26 109/51 (70) 94 03/04/20 21:26 98.9 03/04/20 21:15 110/47 03/04/20 21:00 116 27 116/48 (70) 94 03/04/20 21:00 27 Mechanical Ventilator 80 03/04/20 21:00 116/48 03/04/20 20:45 114/49 03/04/20 20:30 115 27 109/48 (68) 94 03/04/20 20:12 30 Mechanical Ventilator 80 03/04/20 20:00 80 03/04/20 20:00 Mechanical Ventilator 03/04/20 20:00 98.9 118 25 113/45 (67) 95 03/04/20 20:00 25 Mechanical Ventilator 80 03/04/20 20:00 113/45 03/04/20 20:00 118 03/04/20 19:30 117 23 111/47 (68) 96 03/04/20 19:24 117 26 80 03/04/20 19:00 116 28 108/49 (68) 95 03/04/20 19:00 28 Mechanical Ventilator 80 03/04/20 19:00 108/49 03/04/20 18:45 117 27 106/44 (64) 94 03/04/20 18:30 117 29 101/46 (64) 93 03/04/20 18:20 98/46 03/04/20 18:00 30 Mechanical Ventilator 80 03/04/20 18:00 77/42 03/04/20 18:00 117 32 77/42 (54) 92 03/04/20 17:45 118 31 103/48 (66) 92 03/04/20 17:30 119 32 99/46 (63) 91 03/04/20 17:00 118 32 109/48 (68) 92 03/04/20 17:00 30 Mechanical Ventilator 80 03/04/20 17:00 109/48 03/04/20 16:55 116 30 80 03/04/20 16:45 115 33 108/50 (69) 90 03/04/20 16:30 117 30 106/46 (66) 88 Intake and Output 03/04/20 03/05/20 19:00 07:00 Intake Total 743.29 ml 1469.62 ml Output Total 765 ml 700 ml Balance -21.71 ml 769.62 ml IV Total 573.29 ml 1349.62 ml Tube Feeding 110 ml 120 ml Other 60 ml Output Urine Total 540 ml 700 ml Chest Tube Drainage Total 225 ml Laboratory Tests Test 03/05/20 04:00 White Blood Count 7.9 K/UL (4.8-10.8) Red Blood Count 2.18 M/UL (4.70-6.10) L Hemoglobin 6.6 G/DL (14.2-18.0) *L Hematocrit 19.4 % (42.0-52.0) L Mean Corpuscular Volume 89 FL (80-99) Mean Corpuscular Hemoglobin 30.5 PG (27.0-31.0) Mean Corpuscular Hemoglobin Concent 34.3 G/DL (32.0-36.0) Red Cell Distribution Width 14.6 % (11.6-14.8) Platelet Count 56 K/UL (150-450) L Mean Platelet Volume 11.5 FL (6.5-10.1) H Neutrophils (%) (Auto) % (45.0-75.0) Lymphocytes (%) (Auto) % (20.0-45.0) Monocytes (%) (Auto) % (1.0-10.0) Eosinophils (%) (Auto) % (0.0-3.0) Basophils (%) (Auto) % (0.0-2.0) Differential Total Cells Counted 100 Neutrophils % (Manual) 88 % (45-75) H Lymphocytes % (Manual) 4 % (20-45) L Monocytes % (Manual) 6 % (1-10) Eosinophils % (Manual) 1 % (0-3) Basophils % (Manual) 1 % (0-2) Band Neutrophils 0 % (0-8) Platelet Estimate Decreased L Platelet Morphology Normal Hypochromasia 4+ Anisocytosis 1+ Spherocytes 3+ Sodium Level 131 MMOL/L (136-145) L Potassium Level 4.6 MMOL/L (3.5-5.1) Chloride Level 95 MMOL/L (98-107) L Carbon Dioxide Level 31 MMOL/L (21-32) Anion Gap 5 mmol/L (5-15) Blood Urea Nitrogen 31 mg/dL (7-18) H Creatinine 1.0 MG/DL (0.55-1.30) Estimat Glomerular Filtration Rate > 60 mL/min (>60) Glucose Level 141 MG/DL (74-106) H Calcium Level 6.9 MG/DL (8.5-10.1) L Total Bilirubin 8.8 MG/DL (0.2-1.0) H Direct Bilirubin 7.4 MG/DL (0.0-0.3) H Aspartate Amino Transf (AST/SGOT) 44 U/L (15-37) H Alanine Aminotransferase (ALT/SGPT) 37 U/L (12-78) Alkaline Phosphatase 246 U/L (46-116) H Total Protein 5.1 G/DL (6.4-8.2) L Albumin 1.7 G/DL (3.4-5.0) L Globulin 3.4 g/dL Albumin/Globulin Ratio 0.5 (1.0-2.7) L Random Vancomycin Level 28.3 ug/mL Objective HEAD AND NECK: No JVD orally intubated. LUNGS: Decreased breath sounds and coarse rhonchi. SQ emphesyma Left chest tube is in CARDIOVASCULAR: Regular S1 and S2 with no gallop. ABDOMEN: Soft. EXTREMITIES: No pitting edema. Deric Garcia MD March 05, 2020 16:15
--- NOTE | 2020-03-05 17:07 | GI Progress Note ---
Assessment/Plan Problems: (1) Respiratory failure with hypoxia ICD Codes: J96.91 - Respiratory failure, unspecified with hypoxia SNOMED: 21165843964134251 Qualifiers: Qualified Codes: J96.01 - Acute respiratory failure with hypoxia (2) Sepsis ICD Codes: A41.9 - Sepsis, unspecified organism SNOMED: 01493471 (3) Diabetes mellitus ICD Codes: E11.9 - Type 2 diabetes mellitus without complications SNOMED: 59004482 (4) Elevated LFTs ICD Codes: R79.89 - Other specified abnormal findings of blood chemistry SNOMED: 758672171, 772871085 (5) Suspected COVID-19 virus infection ICD Codes: Z20.828 - Contact with and (suspected) exposure to other viral communicable diseases SNOMED: 482379713 Status: unchanged Status Narrative Discussed with Dr. Howe. Assessment/Plan ++Covid reglan monitor for residuals fu labs abx per ID current TF at 10 cc, poor prognosis The patient was seen and examined at bedside and all new and available data was reviewed in the patients chart. I agree with the above findings, impression and plan. (Patient seen earlier today. Signature stamp does not reflect patient encounter time.). - Domo Hwoe MD Subjective Subjective limited Objective Last 24 Hour Vital Signs Date Time Temp Pulse Resp B/P (MAP) Pulse Ox O2 Delivery O2 Flow Rate FiO2 03/05/20 16:00 80 03/05/20 16:00 Mechanical Ventilator 03/05/20 15:45 85 20 108/37 (60) 99 03/05/20 15:30 85 20 119/41 (67) 99 03/05/20 15:24 86 20 119/39 (65) 98 03/05/20 15:20 85 20 80 03/05/20 15:15 88 20 76/28 (44) 97 03/05/20 15:00 89 19 119/42 (67) 99 03/05/20 15:00 24 Mechanical Ventilator 80 03/05/20 15:00 119/42 03/05/20 14:46 99/38 03/05/20 14:45 86 22 100/39 (59) 98 03/05/20 14:30 86 21 99/38 (58) 98 03/05/20 14:00 89 21 89/37 (54) 96 03/05/20 14:00 22 Mechanical Ventilator 80 03/05/20 14:00 89/37 03/05/20 13:45 88 22 93/37 (55) 97 03/05/20 13:30 91 22 114/41 (65) 99 03/05/20 13:00 92 22 112/41 (64) 99 03/05/20 13:00 22 Mechanical Ventilator 80 03/05/20 13:00 112/41 03/05/20 12:30 86 22 101/38 (59) 98 03/05/20 12:00 Mechanical Ventilator 03/05/20 12:00 86 03/05/20 12:00 80 03/05/20 12:00 98.1 87 22 101/38 (59) 97 03/05/20 12:00 22 Mechanical Ventilator 80 03/05/20 12:00 101/38 03/05/20 11:30 86 22 100/38 (58) 97 03/05/20 11:09 87 22 80 03/05/20 11:00 91 22 125/43 (70) 98 03/05/20 11:00 22 Mechanical Ventilator 80 03/05/20 11:00 125/43 03/05/20 10:30 93 22 113/45 (67) 98 03/05/20 10:00 92 23 135/46 (75) 95 03/05/20 10:00 22 Mechanical Ventilator 80 03/05/20 10:00 135/46 03/05/20 09:00 25 Mechanical Ventilator 80 03/05/20 09:00 140/49 03/05/20 09:00 95 24 140/49 (79) 95 03/05/20 08:55 22 Mechanical Ventilator 80 03/05/20 08:30 93 26 150/50 (83) 98 03/05/20 08:00 88 03/05/20 08:00 22 Mechanical Ventilator 80 03/05/20 08:00 122/44 03/05/20 08:00 98.3 88 22 122/44 (70) 96 03/05/20 08:00 Mechanical Ventilator 03/05/20 08:00 80 03/05/20 07:30 92 21 132/47 (75) 98 03/05/20 07:06 91 24 80 03/05/20 07:00 24 Mechanical Ventilator 80 03/05/20 07:00 144/48 03/05/20 07:00 94 22 144/48 (80) 97 03/05/20 06:45 93 23 151/48 (82) 98 03/05/20 06:30 92 23 03/05/20 06:30 92 23 133/49 (77) 98 03/05/20 06:15 89 22 121/42 (68) 97 03/05/20 06:00 24 Mechanical Ventilator 80 03/05/20 06:00 125/42 03/05/20 06:00 91 23 125/42 (69) 97 03/05/20 05:53 92/37 03/05/20 05:45 95 22 92/37 (55) 94 03/05/20 05:30 92 23 110/40 (63) 96 03/05/20 05:15 94 23 114/42 (66) 96 03/05/20 05:00 96 22 119/46 (70) 97 03/05/20 05:00 21 Mechanical Ventilator 80 03/05/20 05:00 119/46 03/05/20 04:45 101 21 129/46 (73) 96 03/05/20 04:30 99 21 142/49 (80) 97 03/05/20 04:15 97 21 128/43 (71) 97 03/05/20 04:00 Mechanical Ventilator 03/05/20 04:00 100 03/05/20 04:00 80 03/05/20 04:00 23 Mechanical Ventilator 80 03/05/20 04:00 121/39 03/05/20 04:00 101.2 100 22 121/39 (66) 97 03/05/20 03:45 101 21 126/45 (72) 98 03/05/20 03:30 113/36 03/05/20 03:30 100 21 113/38 (63) 98 03/05/20 03:15 101 21 128/42 (70) 98 03/05/20 03:15 128/42 03/05/20 03:13 104 22 80 03/05/20 03:00 100 22 101/38 (59) 98 03/05/20 03:00 28 Mechanical Ventilator 80 03/05/20 03:00 101/38 03/05/20 02:45 101 21 99/39 (59) 98 03/05/20 02:45 99/36 03/05/20 02:30 98/38 03/05/20 02:30 102 21 98/38 (58) 98 03/05/20 02:15 106/38 03/05/20 02:15 104 21 106/38 (60) 98 03/05/20 02:00 106 21 105/41 (62) 98 03/05/20 02:00 28 Mechanical Ventilator 80 03/05/20 02:00 105/41 03/05/20 01:45 106 22 101/41 (61) 99 03/05/20 01:45 101/41 03/05/20 01:30 105/41 03/05/20 01:30 107 22 105/41 (62) 98 03/05/20 01:20 102.5 03/05/20 01:15 107 22 86/36 (53) 97 03/05/20 01:15 86/36 03/05/20 01:00 109 23 103/43 (63) 97 03/05/20 01:00 30 Mechanical Ventilator 80 03/05/20 01:00 103/43 03/05/20 00:45 102.5 110 23 97/39 (58) 96 03/05/20 00:30 109 23 96/39 (58) 95 03/05/20 00:15 112 22 112/47 (68) 97 03/05/20 00:00 107 24 110/44 (66) 96 03/05/20 00:00 28 Mechanical Ventilator 80 03/05/20 00:00 110/44 03/05/20 00:00 Mechanical Ventilator 03/04/20 23:45 109 25 105/44 (64) 95 03/04/20 23:30 110 24 107/45 (65) 95 03/04/20 23:15 109 25 107/45 (65) 95 03/04/20 23:00 28 Mechanical Ventilator 80 03/04/20 23:00 104/47 03/04/20 23:00 110 25 104/47 (66) 96 03/04/20 22:56 115 25 80 03/04/20 22:30 113 25 110/47 (68) 96 03/04/20 22:00 112 26 112/48 (69) 95 03/04/20 22:00 26 Mechanical Ventilator 80 03/04/20 22:00 112/48 03/04/20 21:45 114/45 03/04/20 21:30 109/51 03/04/20 21:30 114 26 109/51 (70) 94 03/04/20 21:26 98.9 03/04/20 21:15 110/47 03/04/20 21:00 116 27 116/48 (70) 94 03/04/20 21:00 27 Mechanical Ventilator 80 03/04/20 21:00 116/48 03/04/20 20:45 114/49 03/04/20 20:30 115 27 109/48 (68) 94 03/04/20 20:12 30 Mechanical Ventilator 80 03/04/20 20:00 80 03/04/20 20:00 Mechanical Ventilator 03/04/20 20:00 98.9 118 25 113/45 (67) 95 03/04/20 20:00 25 Mechanical Ventilator 80 03/04/20 20:00 113/45 03/04/20 20:00 118 03/04/20 19:30 117 23 111/47 (68) 96 03/04/20 19:24 117 26 80 03/04/20 19:00 116 28 108/49 (68) 95 03/04/20 19:00 28 Mechanical Ventilator 80 03/04/20 19:00 108/49 03/04/20 18:45 117 27 106/44 (64) 94 03/04/20 18:30 117 29 101/46 (64) 93 03/04/20 18:20 98/46 03/04/20 18:00 30 Mechanical Ventilator 80 03/04/20 18:00 77/42 03/04/20 18:00 117 32 77/42 (54) 92 03/04/20 17:45 118 31 103/48 (66) 92 03/04/20 17:30 119 32 99/46 (63) 91 Intake and Output 03/04/20 03/05/20 19:00 07:00 Intake Total 743.29 ml 1469.62 ml Output Total 765 ml 700 ml Balance -21.71 ml 769.62 ml IV Total 573.29 ml 1349.62 ml Tube Feeding 110 ml 120 ml Other 60 ml Output Urine Total 540 ml 700 ml Chest Tube Drainage Total 225 ml Laboratory Tests Test 03/05/20 04:00 White Blood Count 7.9 K/UL (4.8-10.8) Red Blood Count 2.18 M/UL (4.70-6.10) L Hemoglobin 6.6 G/DL (14.2-18.0) *L Hematocrit 19.4 % (42.0-52.0) L Mean Corpuscular Volume 89 FL (80-99) Mean Corpuscular Hemoglobin 30.5 PG (27.0-31.0) Mean Corpuscular Hemoglobin Concent 34.3 G/DL (32.0-36.0) Red Cell Distribution Width 14.6 % (11.6-14.8) Platelet Count 56 K/UL (150-450) L Mean Platelet Volume 11.5 FL (6.5-10.1) H Neutrophils (%) (Auto) % (45.0-75.0) Lymphocytes (%) (Auto) % (20.0-45.0) Monocytes (%) (Auto) % (1.0-10.0) Eosinophils (%) (Auto) % (0.0-3.0) Basophils (%) (Auto) % (0.0-2.0) Differential Total Cells Counted 100 Neutrophils % (Manual) 88 % (45-75) H Lymphocytes % (Manual) 4 % (20-45) L Monocytes % (Manual) 6 % (1-10) Eosinophils % (Manual) 1 % (0-3) Basophils % (Manual) 1 % (0-2) Band Neutrophils 0 % (0-8) Platelet Estimate Decreased L Platelet Morphology Normal Hypochromasia 4+ Anisocytosis 1+ Spherocytes 3+ Sodium Level 131 MMOL/L (136-145) L Potassium Level 4.6 MMOL/L (3.5-5.1) Chloride Level 95 MMOL/L (98-107) L Carbon Dioxide Level 31 MMOL/L (21-32) Anion Gap 5 mmol/L (5-15) Blood Urea Nitrogen 31 mg/dL (7-18) H Creatinine 1.0 MG/DL (0.55-1.30) Estimat Glomerular Filtration Rate > 60 mL/min (>60) Glucose Level 141 MG/DL (74-106) H Calcium Level 6.9 MG/DL (8.5-10.1) L Total Bilirubin 8.8 MG/DL (0.2-1.0) H Direct Bilirubin 7.4 MG/DL (0.0-0.3) H Aspartate Amino Transf (AST/SGOT) 44 U/L (15-37) H Alanine Aminotransferase (ALT/SGPT) 37 U/L (12-78) Alkaline Phosphatase 246 U/L (46-116) H Total Protein 5.1 G/DL (6.4-8.2) L Albumin 1.7 G/DL (3.4-5.0) L Globulin 3.4 g/dL Albumin/Globulin Ratio 0.5 (1.0-2.7) L Random Vancomycin Level 28.3 ug/mL Height (Feet): 5 Height (Inches): 5.00 Weight (Pounds): 145 General Appearance: lethargic Cardiovascular: normal rate Respiratory/Chest: no respiratory distress Maureen Craig NP March 05, 2020 17:07
--- NOTE | 2020-03-05 17:16 | General Progress Note ---
Assessment/Plan Status: unchanged Assessment/Plan: HPI/CC: 74 y/o M from [place], PMH HTN, DMT2, dementia, Alzheimers dx, h/o CVA/TIA, h /o DVT, schizophrenia who presents for Fever. In the ED, pt found to be septic, Tm 100.9, RR22, WBC 7.3, Lactic acid 2.8, and ABG revealed acute hypoxic respiratory failure. Pt was intubated and will be admitted to ICU for acute hypoxic respiratory failure and pending COVID r/o. Assessment #Acute Hypoxic Resp Failure 2/2 COVID/HCAP+ #PTX s/p left Chest Tube #Septic Shock #Blood transfusion Requiring Anemia w/ Thromcytopenia #DMII #Anemia of Chronic Dx #Dementia/Psych Hx Plan Appreciate Consultants Continue Vent management , Fentanyl for sedation, Currently on Levophed , s/p Fredrick Chest tube management per surgery AB w/ Vancomycin, Zosyn, Doxycycline --> S/P Plaquenil Trend Predictive Markers Q3 days, Ddimer, CRP, Procalcitonin, Ferritin Weight based insulin dosing , adjust prn, goal blood sugar less than 180 DVT ppx, Tube Feeding, Supportive Measures, Vitamins 03/05: Vent per pulm, AB per ID, CT per Surgery, PRBC today. Appreciate Oncology, GI, Nephro. Will order DIC panel for AM; consider changing Protonix IV to BID if HGB continues to drop Subjective Date patient seen: March 05, 2020 Time patient seen: 12:00 Allergies: Coded Allergies: No Known Allergies (Unverified , 01/19/19) Subjective Patient remains on levophed, FI02,80%. Chest tube in place, urine output adequate. He received a one time dose of albumin. HGB low today, requiring PRBC transfusion. Monitor platelets Objective Last 24 Hour Vital Signs Date Time Temp Pulse Resp B/P (MAP) Pulse Ox O2 Delivery O2 Flow Rate FiO2 03/05/20 16:00 80 03/05/20 16:00 Mechanical Ventilator 03/05/20 15:45 85 20 108/37 (60) 99 03/05/20 15:30 85 20 119/41 (67) 99 03/05/20 15:24 86 20 119/39 (65) 98 03/05/20 15:20 85 20 80 03/05/20 15:15 88 20 76/28 (44) 97 03/05/20 15:00 89 19 119/42 (67) 99 03/05/20 15:00 24 Mechanical Ventilator 80 03/05/20 15:00 119/42 03/05/20 14:46 99/38 03/05/20 14:45 86 22 100/39 (59) 98 03/05/20 14:30 86 21 99/38 (58) 98 03/05/20 14:00 89 21 89/37 (54) 96 03/05/20 14:00 22 Mechanical Ventilator 80 03/05/20 14:00 89/37 03/05/20 13:45 88 22 93/37 (55) 97 03/05/20 13:30 91 22 114/41 (65) 99 03/05/20 13:00 92 22 112/41 (64) 99 03/05/20 13:00 22 Mechanical Ventilator 80 03/05/20 13:00 112/41 03/05/20 12:30 86 22 101/38 (59) 98 03/05/20 12:00 Mechanical Ventilator 03/05/20 12:00 86 03/05/20 12:00 80 03/05/20 12:00 98.1 87 22 101/38 (59) 97 03/05/20 12:00 22 Mechanical Ventilator 80 03/05/20 12:00 101/38 03/05/20 11:30 86 22 100/38 (58) 97 03/05/20 11:09 87 22 80 03/05/20 11:00 91 22 125/43 (70) 98 03/05/20 11:00 22 Mechanical Ventilator 80 03/05/20 11:00 125/43 03/05/20 10:30 93 22 113/45 (67) 98 03/05/20 10:00 92 23 135/46 (75) 95 03/05/20 10:00 22 Mechanical Ventilator 80 03/05/20 10:00 135/46 03/05/20 09:00 25 Mechanical Ventilator 80 03/05/20 09:00 140/49 03/05/20 09:00 95 24 140/49 (79) 95 03/05/20 08:55 22 Mechanical Ventilator 80 03/05/20 08:30 93 26 150/50 (83) 98 03/05/20 08:00 88 03/05/20 08:00 22 Mechanical Ventilator 80 03/05/20 08:00 122/44 03/05/20 08:00 98.3 88 22 122/44 (70) 96 03/05/20 08:00 Mechanical Ventilator 03/05/20 08:00 80 03/05/20 07:30 92 21 132/47 (75) 98 03/05/20 07:06 91 24 80 03/05/20 07:00 24 Mechanical Ventilator 80 03/05/20 07:00 144/48 03/05/20 07:00 94 22 144/48 (80) 97 03/05/20 06:45 93 23 151/48 (82) 98 03/05/20 06:30 92 23 03/05/20 06:30 92 23 133/49 (77) 98 03/05/20 06:15 89 22 121/42 (68) 97 03/05/20 06:00 24 Mechanical Ventilator 80 03/05/20 06:00 125/42 03/05/20 06:00 91 23 125/42 (69) 97 03/05/20 05:53 92/37 03/05/20 05:45 95 22 92/37 (55) 94 03/05/20 05:30 92 23 110/40 (63) 96 03/05/20 05:15 94 23 114/42 (66) 96 03/05/20 05:00 96 22 119/46 (70) 97 03/05/20 05:00 21 Mechanical Ventilator 80 03/05/20 05:00 119/46 03/05/20 04:45 101 21 129/46 (73) 96 03/05/20 04:30 99 21 142/49 (80) 97 03/05/20 04:15 97 21 128/43 (71) 97 03/05/20 04:00 Mechanical Ventilator 03/05/20 04:00 100 03/05/20 04:00 80 03/05/20 04:00 23 Mechanical Ventilator 80 03/05/20 04:00 121/39 03/05/20 04:00 101.2 100 22 121/39 (66) 97 03/05/20 03:45 101 21 126/45 (72) 98 03/05/20 03:30 113/36 03/05/20 03:30 100 21 113/38 (63) 98 03/05/20 03:15 101 21 128/42 (70) 98 03/05/20 03:15 128/42 03/05/20 03:13 104 22 80 03/05/20 03:00 100 22 101/38 (59) 98 03/05/20 03:00 28 Mechanical Ventilator 80 03/05/20 03:00 101/38 03/05/20 02:45 101 21 99/39 (59) 98 03/05/20 02:45 99/36 03/05/20 02:30 98/38 03/05/20 02:30 102 21 98/38 (58) 98 03/05/20 02:15 106/38 03/05/20 02:15 104 21 106/38 (60) 98 03/05/20 02:00 106 21 105/41 (62) 98 03/05/20 02:00 28 Mechanical Ventilator 80 03/05/20 02:00 105/41 03/05/20 01:45 106 22 101/41 (61) 99 03/05/20 01:45 101/41 03/05/20 01:30 105/41 03/05/20 01:30 107 22 105/41 (62) 98 03/05/20 01:20 102.5 03/05/20 01:15 107 22 86/36 (53) 97 03/05/20 01:15 86/36 03/05/20 01:00 109 23 103/43 (63) 97 03/05/20 01:00 30 Mechanical Ventilator 80 03/05/20 01:00 103/43 03/05/20 00:45 102.5 110 23 97/39 (58) 96 03/05/20 00:30 109 23 96/39 (58) 95 03/05/20 00:15 112 22 112/47 (68) 97 03/05/20 00:00 107 24 110/44 (66) 96 03/05/20 00:00 28 Mechanical Ventilator 80 03/05/20 00:00 110/44 03/05/20 00:00 Mechanical Ventilator 03/04/20 23:45 109 25 105/44 (64) 95 03/04/20 23:30 110 24 107/45 (65) 95 03/04/20 23:15 109 25 107/45 (65) 95 03/04/20 23:00 28 Mechanical Ventilator 80 03/04/20 23:00 104/47 03/04/20 23:00 110 25 104/47 (66) 96 03/04/20 22:56 115 25 80 03/04/20 22:30 113 25 110/47 (68) 96 03/04/20 22:00 112 26 112/48 (69) 95 03/04/20 22:00 26 Mechanical Ventilator 80 03/04/20 22:00 112/48 03/04/20 21:45 114/45 03/04/20 21:30 109/51 03/04/20 21:30 114 26 109/51 (70) 94 03/04/20 21:26 98.9 03/04/20 21:15 110/47 03/04/20 21:00 116 27 116/48 (70) 94 03/04/20 21:00 27 Mechanical Ventilator 80 03/04/20 21:00 116/48 03/04/20 20:45 114/49 03/04/20 20:30 115 27 109/48 (68) 94 03/04/20 20:12 30 Mechanical Ventilator 80 03/04/20 20:00 80 03/04/20 20:00 Mechanical Ventilator 03/04/20 20:00 98.9 118 25 113/45 (67) 95 03/04/20 20:00 25 Mechanical Ventilator 80 03/04/20 20:00 113/45 03/04/20 20:00 118 03/04/20 19:30 117 23 111/47 (68) 96 03/04/20 19:24 117 26 80 03/04/20 19:00 116 28 108/49 (68) 95 03/04/20 19:00 28 Mechanical Ventilator 80 03/04/20 19:00 108/49 03/04/20 18:45 117 27 106/44 (64) 94 03/04/20 18:30 117 29 101/46 (64) 93 03/04/20 18:20 98/46 03/04/20 18:00 30 Mechanical Ventilator 80 03/04/20 18:00 77/42 03/04/20 18:00 117 32 77/42 (54) 92 03/04/20 17:45 118 31 103/48 (66) 92 03/04/20 17:30 119 32 99/46 (63) 91 Intake and Output 03/04/20 03/05/20 19:00 07:00 Intake Total 743.29 ml 1469.62 ml Output Total 765 ml 700 ml Balance -21.71 ml 769.62 ml IV Total 573.29 ml 1349.62 ml Tube Feeding 110 ml 120 ml Other 60 ml Output Urine Total 540 ml 700 ml Chest Tube Drainage Total 225 ml Laboratory Tests 03/05/20 04:00: White Blood Count 7.9, Red Blood Count 2.18L, Hemoglobin 6.6*L, Hematocrit 19.4L , Mean Corpuscular Volume 89, Mean Corpuscular Hemoglobin 30.5, Mean Corpuscular Hemoglobin Concent 34.3, Red Cell Distribution Width 14.6, Platelet Count 56L, Mean Platelet Volume 11.5H, Neutrophils (%) (Auto) , Lymphocytes (%) (Auto) , Monocytes (%) (Auto) , Eosinophils (%) (Auto) , Basophils (%) (Auto) , Differential Total Cells Counted 100, Neutrophils % (Manual) 88H, Lymphocytes % (Manual) 4L, Monocytes % (Manual) 6, Eosinophils % (Manual) 1, Basophils % ( Manual) 1, Band Neutrophils 0, Platelet Estimate DecreasedL, Platelet Morphology Normal, Hypochromasia 4+, Anisocytosis 1+, Spherocytes 3+, Sodium Level 131L, Potassium Level 4.6, Chloride Level 95L, Carbon Dioxide Level 31, Anion Gap 5, Blood Urea Nitrogen 31H, Creatinine 1.0, Estimat Glomerular Filtration Rate > 60, Glucose Level 141H, Calcium Level 6.9L, Total Bilirubin 8.8H, Direct Bilirubin 7.4H, Aspartate Amino Transf (AST/SGOT) 44H, Alanine Aminotransferase (ALT/SGPT) 37, Alkaline Phosphatase 246H, Total Protein 5.1L, Albumin 1.7L, Globulin 3.4, Albumin/Globulin Ratio 0.5L, Random Vancomycin Level 28.3 Height (Feet): 5 Height (Inches): 5.00 Weight (Pounds): 145 Objective General Appearance: other - intubated , sedated Cardiovascular: normal rate, regular rhythm, other - requiring pressor support Respiratory/Chest: other - on Vent, Left chest tube in place Abdomen: non tender, soft Extremities: swelling Edema: 1+ Generalized Neurologic: other - Sedated Alison Bah D.O. March 05, 2020 17:16
[2020-03-05] MEDS ORDERED: D5W 550ml IV ONE (17:40)
[2020-03-05] MEDS ORDERED: NS 275ml ONE (17:40)
[2020-03-05] MEDS ORDERED: Sterile Water Irrig 1000ml IRRIG ONE (17:40)
[2020-03-05] MEDS ORDERED: Tubing IV Secondary IV ONE (17:40)
[2020-03-05] MEDS: Dyna-Hex 2% Top Sol 2oz TOPIC SCH (20:06)
--- NOTE | 2020-03-05 20:21 | Surgery Progress Note ---
Surgery Progress Note Subjective Procedure Performed Left tube thoracostomy Additional Comments chest tube to water seal output less and serous labs reviewed on support Objective Last 24 Hour Vital Signs Date Time Temp Pulse Resp B/P (MAP) Pulse Ox O2 Delivery O2 Flow Rate FiO2 03/05/20 20:00 106 03/05/20 20:00 98.3 109 20 122/48 (72) 94 03/05/20 20:00 Mechanical Ventilator 03/05/20 20:00 100 03/05/20 19:30 107 24 130/47 (74) 88 03/05/20 19:20 108 20 100 03/05/20 19:00 21 Mechanical Ventilator 80 03/05/20 19:00 135/45 03/05/20 19:00 110 23 135/45 (75) 87 03/05/20 18:33 110 23 140/46 (77) 89 03/05/20 18:00 109 23 137/46 (76) 89 03/05/20 18:00 24 Mechanical Ventilator 80 03/05/20 18:00 137/46 03/05/20 17:45 109 23 148/47 (80) 87 03/05/20 17:30 106 24 147/45 (79) 90 03/05/20 17:15 98.8 105 24 144/49 (80) 91 03/05/20 17:00 106 24 150/46 (80) 91 03/05/20 17:00 22 Mechanical Ventilator 80 03/05/20 17:00 150/46 03/05/20 16:30 103 24 145/51 (82) 92 03/05/20 16:00 103 03/05/20 16:00 80 03/05/20 16:00 22 Mechanical Ventilator 80 03/05/20 16:00 107/39 03/05/20 16:00 95 21 107/39 (61) 97 03/05/20 16:00 Mechanical Ventilator 03/05/20 15:45 85 20 108/37 (60) 99 03/05/20 15:30 85 20 119/41 (67) 99 03/05/20 15:24 86 20 119/39 (65) 98 03/05/20 15:20 85 20 80 03/05/20 15:15 88 20 76/28 (44) 97 03/05/20 15:00 89 19 119/42 (67) 99 03/05/20 15:00 24 Mechanical Ventilator 80 03/05/20 15:00 119/42 03/05/20 14:46 99/38 03/05/20 14:45 86 22 100/39 (59) 98 03/05/20 14:30 86 21 99/38 (58) 98 03/05/20 14:00 89 21 89/37 (54) 96 03/05/20 14:00 22 Mechanical Ventilator 80 03/05/20 14:00 89/37 03/05/20 13:45 88 22 93/37 (55) 97 03/05/20 13:30 91 22 114/41 (65) 99 03/05/20 13:00 92 22 112/41 (64) 99 03/05/20 13:00 22 Mechanical Ventilator 80 03/05/20 13:00 112/41 03/05/20 12:30 86 22 101/38 (59) 98 03/05/20 12:00 Mechanical Ventilator 03/05/20 12:00 86 03/05/20 12:00 80 03/05/20 12:00 98.1 87 22 101/38 (59) 97 03/05/20 12:00 22 Mechanical Ventilator 80 03/05/20 12:00 101/38 03/05/20 11:30 86 22 100/38 (58) 97 03/05/20 11:09 87 22 80 03/05/20 11:00 91 22 125/43 (70) 98 03/05/20 11:00 22 Mechanical Ventilator 80 03/05/20 11:00 125/43 03/05/20 10:30 93 22 113/45 (67) 98 03/05/20 10:00 92 23 135/46 (75) 95 03/05/20 10:00 22 Mechanical Ventilator 80 03/05/20 10:00 135/46 03/05/20 09:00 25 Mechanical Ventilator 80 03/05/20 09:00 140/49 03/05/20 09:00 95 24 140/49 (79) 95 03/05/20 08:55 22 Mechanical Ventilator 80 03/05/20 08:30 93 26 150/50 (83) 98 03/05/20 08:00 88 03/05/20 08:00 22 Mechanical Ventilator 80 03/05/20 08:00 122/44 03/05/20 08:00 98.3 88 22 122/44 (70) 96 03/05/20 08:00 Mechanical Ventilator 03/05/20 08:00 80 03/05/20 07:30 92 21 132/47 (75) 98 03/05/20 07:06 91 24 80 03/05/20 07:00 24 Mechanical Ventilator 80 03/05/20 07:00 144/48 03/05/20 07:00 94 22 144/48 (80) 97 03/05/20 06:45 93 23 151/48 (82) 98 03/05/20 06:30 92 23 03/05/20 06:30 92 23 133/49 (77) 98 03/05/20 06:15 89 22 121/42 (68) 97 03/05/20 06:00 24 Mechanical Ventilator 80 03/05/20 06:00 125/42 03/05/20 06:00 91 23 125/42 (69) 97 03/05/20 05:53 92/37 03/05/20 05:45 95 22 92/37 (55) 94 03/05/20 05:30 92 23 110/40 (63) 96 03/05/20 05:15 94 23 114/42 (66) 96 03/05/20 05:00 96 22 119/46 (70) 97 03/05/20 05:00 21 Mechanical Ventilator 80 03/05/20 05:00 119/46 03/05/20 04:45 101 21 129/46 (73) 96 03/05/20 04:30 99 21 142/49 (80) 97 03/05/20 04:15 97 21 128/43 (71) 97 03/05/20 04:00 Mechanical Ventilator 03/05/20 04:00 100 03/05/20 04:00 80 03/05/20 04:00 23 Mechanical Ventilator 80 03/05/20 04:00 121/39 03/05/20 04:00 101.2 100 22 121/39 (66) 97 03/05/20 03:45 101 21 126/45 (72) 98 03/05/20 03:30 113/36 03/05/20 03:30 100 21 113/38 (63) 98 03/05/20 03:15 101 21 128/42 (70) 98 03/05/20 03:15 128/42 03/05/20 03:13 104 22 80 03/05/20 03:00 100 22 101/38 (59) 98 03/05/20 03:00 28 Mechanical Ventilator 80 03/05/20 03:00 101/38 03/05/20 02:45 101 21 99/39 (59) 98 03/05/20 02:45 99/36 03/05/20 02:30 98/38 03/05/20 02:30 102 21 98/38 (58) 98 03/05/20 02:15 106/38 03/05/20 02:15 104 21 106/38 (60) 98 03/05/20 02:00 106 21 105/41 (62) 98 03/05/20 02:00 28 Mechanical Ventilator 80 03/05/20 02:00 105/41 03/05/20 01:45 106 22 101/41 (61) 99 03/05/20 01:45 101/41 03/05/20 01:30 105/41 03/05/20 01:30 107 22 105/41 (62) 98 03/05/20 01:20 102.5 03/05/20 01:15 107 22 86/36 (53) 97 03/05/20 01:15 86/36 03/05/20 01:00 109 23 103/43 (63) 97 03/05/20 01:00 30 Mechanical Ventilator 80 03/05/20 01:00 103/43 03/05/20 00:45 102.5 110 23 97/39 (58) 96 03/05/20 00:30 109 23 96/39 (58) 95 03/05/20 00:15 112 22 112/47 (68) 97 03/05/20 00:00 107 24 110/44 (66) 96 03/05/20 00:00 28 Mechanical Ventilator 80 03/05/20 00:00 110/44 03/05/20 00:00 Mechanical Ventilator 03/04/20 23:45 109 25 105/44 (64) 95 03/04/20 23:30 110 24 107/45 (65) 95 03/04/20 23:15 109 25 107/45 (65) 95 03/04/20 23:00 28 Mechanical Ventilator 80 03/04/20 23:00 104/47 03/04/20 23:00 110 25 104/47 (66) 96 03/04/20 22:56 115 25 80 03/04/20 22:30 113 25 110/47 (68) 96 03/04/20 22:00 112 26 112/48 (69) 95 03/04/20 22:00 26 Mechanical Ventilator 80 03/04/20 22:00 112/48 03/04/20 21:45 114/45 03/04/20 21:30 109/51 03/04/20 21:30 114 26 109/51 (70) 94 03/04/20 21:26 98.9 03/04/20 21:15 110/47 03/04/20 21:00 116 27 116/48 (70) 94 03/04/20 21:00 27 Mechanical Ventilator 80 03/04/20 21:00 116/48 03/04/20 20:45 114/49 03/04/20 20:30 115 27 109/48 (68) 94 I&O Intake and Output 03/04/20 03/05/20 19:00 07:00 Intake Total 743.29 ml 1469.62 ml Output Total 765 ml 700 ml Balance -21.71 ml 769.62 ml IV Total 573.29 ml 1349.62 ml Tube Feeding 110 ml 120 ml Other 60 ml Output Urine Total 540 ml 700 ml Chest Tube Drainage Total 225 ml Dressing: saturated Drains: other Cardiovascular: RSR Respiratory: decreased breath sounds Abdomen: non-tender, present bowel sounds, non-distended Extremities: no cyanosis, other Laboratory Tests Test 03/05/20 04:00 White Blood Count 7.9 K/UL (4.8-10.8) Red Blood Count 2.18 M/UL (4.70-6.10) L Hemoglobin 6.6 G/DL (14.2-18.0) *L Hematocrit 19.4 % (42.0-52.0) L Mean Corpuscular Volume 89 FL (80-99) Mean Corpuscular Hemoglobin 30.5 PG (27.0-31.0) Mean Corpuscular Hemoglobin Concent 34.3 G/DL (32.0-36.0) Red Cell Distribution Width 14.6 % (11.6-14.8) Platelet Count 56 K/UL (150-450) L Mean Platelet Volume 11.5 FL (6.5-10.1) H Neutrophils (%) (Auto) % (45.0-75.0) Lymphocytes (%) (Auto) % (20.0-45.0) Monocytes (%) (Auto) % (1.0-10.0) Eosinophils (%) (Auto) % (0.0-3.0) Basophils (%) (Auto) % (0.0-2.0) Differential Total Cells Counted 100 Neutrophils % (Manual) 88 % (45-75) H Lymphocytes % (Manual) 4 % (20-45) L Monocytes % (Manual) 6 % (1-10) Eosinophils % (Manual) 1 % (0-3) Basophils % (Manual) 1 % (0-2) Band Neutrophils 0 % (0-8) Platelet Estimate Decreased L Platelet Morphology Normal Hypochromasia 4+ Anisocytosis 1+ Spherocytes 3+ Sodium Level 131 MMOL/L (136-145) L Potassium Level 4.6 MMOL/L (3.5-5.1) Chloride Level 95 MMOL/L (98-107) L Carbon Dioxide Level 31 MMOL/L (21-32) Anion Gap 5 mmol/L (5-15) Blood Urea Nitrogen 31 mg/dL (7-18) H Creatinine 1.0 MG/DL (0.55-1.30) Estimat Glomerular Filtration Rate > 60 mL/min (>60) Glucose Level 141 MG/DL (74-106) H Calcium Level 6.9 MG/DL (8.5-10.1) L Total Bilirubin 8.8 MG/DL (0.2-1.0) H Direct Bilirubin 7.4 MG/DL (0.0-0.3) H Aspartate Amino Transf (AST/SGOT) 44 U/L (15-37) H Alanine Aminotransferase (ALT/SGPT) 37 U/L (12-78) Alkaline Phosphatase 246 U/L (46-116) H Total Protein 5.1 G/DL (6.4-8.2) L Albumin 1.7 G/DL (3.4-5.0) L Globulin 3.4 g/dL Albumin/Globulin Ratio 0.5 (1.0-2.7) L Random Vancomycin Level 28.3 ug/mL Plan Problems: (1) Pneumothorax Assessment & Plan: Patient with bilateral pneumothoraces right slightly larger than left but both are very small. On the left side there is significant amount of subcutaneous emphysema extensively more than anything on the right side. Given these findings and discussion with the patient's medical scheduler and clinical decision making currently patient is extremely ill DIC thrombocytopenia critically ill and would only recommend placing 1 chest tube at this time given how high risk he is specially with COVID status. Given the x -ray findings and the extensive subtenons emphysema recommend placing a left- sided chest tube at this time with considerations for right side if necessary. Please see procedure note. Will follow and monitor 2. A.m. chest x-ray. Thank you participate in patient' s care AM CXR may need right chest tube chest tube to water seal Is a tiny sliver of a left apical pneumothorax, apex of the lung approximately 3 mm from the chest wall. There is a slightly larger but still small right apical pneumothorax, with the apex of the lung approximately 14 mm from the edge of the chest wall. There is extensive subcutaneous emphysema, particularly in the left anterior chest wall, but also seen in the bilateral supraclavicular fossae. The inferior right heart border is very well-defined. Uncertain as whether this represents a component of pneumomediastinum or a small medial pneumothorax. Stable tube and line positions, satisfactory. Bilateral infiltrates appear slightly improved as compared to the previous study. Impression: Since 02/26/2020, interim development of small bilateral pneumothoraces, right greater than left, and extensive subcutaneous emphysema. There may also be minimal pneumomediastinum. Bilateral infiltrates have improved somewhat in the interim. (2) Thrombocytopenia (3) Elevated LFTs (4) Diabetes mellitus (5) DVT (deep venous thrombosis) (6) History of hypertension (7) Cerebrovascular accident (CVA) (8) Alzheimer's dementia (9) Debility (10) Respiratory distress (11) Hypotension (12) Respiratory failure with hypoxia (13) Sepsis (14) Suspected COVID-19 virus infection [employer] March 05, 2020 20:21
[2020-03-06] VITALS (47 sets, daily range): BP systolic 83–142; BP diastolic 40–71
[2020-03-06] MEDS: Metoclopramide 10mg/2ml Inj IVP SCH ×5 (00:20→23:35)
[2020-03-06] MEDS: Piperacillin/Tazobactam 3.375 GM in D5W 110 ML IVPB SCH ×3 (00:20→16:57)
[2020-03-06] MEDS: NovoLOG Insulin Flexpen SUBQ SCH ×5 (00:21→23:36)
[2020-03-06] MEDS: Norepinephrine Bitartrate 8 MG in D5W 500ml 492 ML IV SCH ×4 (04:19→21:15)
[2020-03-06] MEDS: Acetaminophen 650 MG SUPP RECTAL PRN (04:20)
[2020-03-06 06:16] LABS: HEMATOCRIT 29.9 % (42.0-52.0); HEMOGLOBIN 10.1 G/DL (14.2-18.0); MEAN CORPUSCULAR VOLUME 92 FL (80-99); PLATELET COUNT 43 K/UL (150-450); RED BLOOD COUNT 3.26 M/UL (4.70-6.10); RED CELL DISTRIBUTION WIDTH 15.2 % (11.6-14.8); WHITE BLOOD COUNT 17.7 K/UL (4.8-10.8)
[2020-03-06 06:41] LABS: INR 1.6 (0.9-1.1)
[2020-03-06 06:51] LABS: ANION GAP 1 mmol/L (5-15); BLOOD UREA NITROGEN 34 mg/dL (7-18); CALCIUM 7.1 MG/DL (8.5-10.1); CARBON DIOXIDE 30 MMOL/L (21-32); CHLORIDE 92 MMOL/L (98-107); CREATININE 1.2 MG/DL (0.55-1.30); PHOSPHORUS 2.4 MG/DL (2.5-4.9); POTASSIUM 4.1 MMOL/L (3.5-5.1); SODIUM 123 MMOL/L (136-145)
[2020-03-06] MEDS: Pantoprazole Inj IVP SCH (08:10)
--- NOTE | 2020-03-06 09:07 | Pulmonology Progress Note ---
Subjective ROS Limited/Unobtainable: Yes Interval Events: Remains intubtaed; was intubated on 02/22/20 Constitutional: Reports: fatigue, other - on vent and pressors ; Denies: fever HEENT: Repors: no symptoms Respiratory: Reports: no symptoms Cardiovascular: Reports: no symptoms Gastrointestinal/Abdominal: Denies: nausea, vomiting, diarrhea Genitourinary: Reports: no symptoms Psychiatric: Reports: other - NA Skin: Denies: rash Endocrine: Reports: no symptoms Musculoskeletal: Reports: other - NA Allergies: Coded Allergies: No Known Allergies (Unverified , 01/19/19) All Systems: reviewed and negative except above Subjective seen and evaluated Discussed with RN Left chest tube placed by surgery Objective Last 24 Hour Vital Signs Date Time Temp Pulse Resp B/P (MAP) Pulse Ox O2 Delivery O2 Flow Rate FiO2 03/06/20 08:15 100.5 113 23 126/54 (78) 92 03/06/20 08:00 113 21 134/56 (82) 92 03/06/20 08:00 100 03/06/20 08:00 Mechanical Ventilator 03/06/20 07:39 109 20 100 03/06/20 07:00 110 21 102/59 (73) 94 03/06/20 07:00 24 Mechanical Ventilator 80 03/06/20 07:00 101/68 03/06/20 06:30 113 20 99/52 (68) 96 03/06/20 06:30 113 20 03/06/20 06:00 24 Mechanical Ventilator 100 03/06/20 06:00 90/40 03/06/20 06:00 114 21 90/40 (57) 97 03/06/20 05:55 101.6 03/06/20 05:30 119 22 99/41 (60) 98 03/06/20 05:00 118 22 123/47 (72) 93 03/06/20 05:00 24 Mechanical Ventilator 100 03/06/20 05:00 123/47 03/06/20 04:44 102 27 100 03/06/20 04:30 118 24 118/50 (72) 92 03/06/20 04:19 92/38 03/06/20 04:00 Mechanical Ventilator 03/06/20 04:00 100 03/06/20 04:00 119 23 121/49 (73) 90 03/06/20 04:00 22 Mechanical Ventilator 100 03/06/20 04:00 121/49 03/06/20 04:00 114 03/06/20 03:30 116 21 108/45 (66) 91 03/06/20 03:00 118 21 104/43 (63) 88 03/06/20 03:00 21 Mechanical Ventilator 100 03/06/20 03:00 104/43 03/06/20 02:37 109 24 100 03/06/20 02:30 119 21 103/42 (62) 87 03/06/20 02:00 118 21 109/40 (63) 88 03/06/20 02:00 23 Mechanical Ventilator 100 03/06/20 02:00 109/41 03/06/20 01:30 115 22 109/41 (63) 88 03/06/20 01:00 22 Mechanical Ventilator 100 03/06/20 01:00 108/41 03/06/20 01:00 113 21 108/41 (63) 89 03/06/20 00:30 108/41 03/06/20 00:30 112 20 108/41 (63) 89 03/06/20 00:15 102/38 03/06/20 00:00 100.0 112 20 95/40 (58) 90 03/06/20 00:00 Mechanical Ventilator 03/06/20 00:00 21 Mechanical Ventilator 100 03/06/20 00:00 95/40 03/05/20 23:30 111 21 110/42 (64) 89 03/05/20 23:15 111 20 101/41 (61) 89 03/05/20 23:00 111 20 100/40 (60) 89 03/05/20 23:00 24 Mechanical Ventilator 100 03/05/20 23:00 100/40 03/05/20 22:50 116 20 100 03/05/20 22:30 100.4 111 20 113/45 (67) 89 03/05/20 22:12 103/38 03/05/20 22:02 98.3 03/05/20 22:00 28 Mechanical Ventilator 100 03/05/20 22:00 126/47 03/05/20 22:00 108 22 103/38 (59) 86 03/05/20 21:30 109 23 123/51 (75) 89 03/05/20 21:21 25 Mechanical Ventilator 100 03/05/20 21:00 25 Mechanical Ventilator 100 03/05/20 21:00 116/57 03/05/20 21:00 105 20 109/46 (67) 91 03/05/20 20:30 106 20 114/44 (67) 92 03/05/20 20:00 106 03/05/20 20:00 98.3 109 20 122/48 (72) 94 03/05/20 20:00 23 Mechanical Ventilator 80 03/05/20 20:00 101/47 03/05/20 20:00 Mechanical Ventilator 03/05/20 20:00 100 03/05/20 19:30 107 24 130/47 (74) 88 03/05/20 19:20 108 20 100 03/05/20 19:00 21 Mechanical Ventilator 80 03/05/20 19:00 135/45 03/05/20 19:00 110 23 135/45 (75) 87 03/05/20 18:33 110 23 140/46 (77) 89 03/05/20 18:00 109 23 137/46 (76) 89 03/05/20 18:00 24 Mechanical Ventilator 80 03/05/20 18:00 137/46 03/05/20 17:45 109 23 148/47 (80) 87 03/05/20 17:30 106 24 147/45 (79) 90 03/05/20 17:15 98.8 105 24 144/49 (80) 91 03/05/20 17:00 106 24 150/46 (80) 91 03/05/20 17:00 22 Mechanical Ventilator 80 03/05/20 17:00 150/46 03/05/20 16:30 103 24 145/51 (82) 92 03/05/20 16:00 103 03/05/20 16:00 80 03/05/20 16:00 22 Mechanical Ventilator 80 03/05/20 16:00 107/39 03/05/20 16:00 95 21 107/39 (61) 97 03/05/20 16:00 Mechanical Ventilator 03/05/20 15:45 85 20 108/37 (60) 99 03/05/20 15:30 85 20 119/41 (67) 99 03/05/20 15:24 86 20 119/39 (65) 98 03/05/20 15:20 85 20 80 03/05/20 15:15 88 20 76/28 (44) 97 03/05/20 15:00 89 19 119/42 (67) 99 03/05/20 15:00 24 Mechanical Ventilator 80 03/05/20 15:00 119/42 03/05/20 14:46 99/38 03/05/20 14:45 86 22 100/39 (59) 98 03/05/20 14:30 86 21 99/38 (58) 98 03/05/20 14:00 89 21 89/37 (54) 96 03/05/20 14:00 22 Mechanical Ventilator 80 03/05/20 14:00 89/37 03/05/20 13:45 88 22 93/37 (55) 97 03/05/20 13:30 91 22 114/41 (65) 99 03/05/20 13:00 92 22 112/41 (64) 99 03/05/20 13:00 22 Mechanical Ventilator 80 03/05/20 13:00 112/41 03/05/20 12:30 86 22 101/38 (59) 98 03/05/20 12:00 Mechanical Ventilator 03/05/20 12:00 86 03/05/20 12:00 80 03/05/20 12:00 98.1 87 22 101/38 (59) 97 03/05/20 12:00 22 Mechanical Ventilator 80 03/05/20 12:00 101/38 03/05/20 11:30 86 22 100/38 (58) 97 03/05/20 11:09 87 22 80 03/05/20 11:00 91 22 125/43 (70) 98 03/05/20 11:00 22 Mechanical Ventilator 80 03/05/20 11:00 125/43 03/05/20 10:30 93 22 113/45 (67) 98 03/05/20 10:00 92 23 135/46 (75) 95 03/05/20 10:00 22 Mechanical Ventilator 80 03/05/20 10:00 135/46 Intake and Output 03/05/20 03/06/20 19:00 07:00 Intake Total 1229.86 ml 1602.5 ml Output Total 545 ml 500 ml Balance 684.86 ml 1102.5 ml Free Water 80 ml IV Total 1109.86 ml 1402.5 ml Tube Feeding 120 ml 120 ml Output Urine Total 485 ml 500 ml Chest Tube Drainage Total 60 ml General Appearance: other - + vent and pressors HEENT: normocephalic, atraumatic, no JVD, other - oral - intubated Respiratory/Chest: chest wall non-tender, decreased breath sounds, other - hAS SUB CUT EMPHYSEMA LEWFT SIDE Cardiovascular: normal peripheral pulses Abdomen: normal bowel sounds, soft, non tender, no organomegaly, non distended Genitourinary: other - + rush Extremities: no cyanosis Skin: no rash Neurologic/Psychiatric: other - has subcut emphysema R > l Lymphatic: no neck adenopathy Musculoskeletal: no effusion Laboratory Tests 03/06/20 03:30: White Blood Count 17.7#H, Red Blood Count 3.26L, Hemoglobin 10.1#L, Hematocrit 29.9#L, Mean Corpuscular Volume 92, Mean Corpuscular Hemoglobin 31.1H, Mean Corpuscular Hemoglobin Concent 33.8, Red Cell Distribution Width 15.2H, Platelet Count 43L, Mean Platelet Volume 13.0H, Neutrophils (%) (Auto) , Lymphocytes (%) (Auto) , Monocytes (%) (Auto) , Eosinophils (%) (Auto) , Basophils (%) (Auto) , Neutrophils % (Manual) [Pending], Lymphocytes % (Manual) [Pending], Platelet Estimate [Pending], Platelet Morphology [Pending], Prothrombin Time 17.0H, Prothromb Time International Ratio 1.6H, Activated Partial Thromboplast Time 33, Fibrinogen 466H, Fibrin Degradation Products, Quant [Pending], D-Dimer 10.40H, Sodium Level 123L, Potassium Level 4.1, Chloride Level 92L, Carbon Dioxide Level 30, Anion Gap 1L, Blood Urea Nitrogen 34H, Creatinine 1.2, Estimat Glomerular Filtration Rate 58.9, Glucose Level 126H , Calcium Level 7.1L, Ionized Calcium (Measured) [Pending], Phosphorus Level 2.4L, Magnesium Level 1.9, Random Vancomycin Level 19.5 Current Medications Medications (Trade) Dose Ordered Sig/Cirilo Route PRN Reason Start Time Stop Time Status Last Admin Dose Admin Acetaminophen (Tylenol) 650 mg Q4H PRN ORAL Fever 02/22/20 14:15 03/23/20 14:14 02/28/20 17:52 Acetaminophen (Tylenol) 650 mg Q4H PRN ORAL Mild Pain (Pain Scale 1-3) 02/22/20 14:15 03/23/20 14:14 03/03/20 17:31 Acetaminophen (Tylenol) 650 mg Q4H PRN RECTAL Mild Pain (Pain Scale 1-3) 02/22/20 14:15 03/23/20 14:14 02/22/20 21:28 Acetaminophen (Tylenol) 650 mg Q4H PRN RECTAL FEVER 02/22/20 14:15 03/23/20 14:14 03/06/20 04:20 Chlorhexidine Gluconate (Maira-Hex 2%) 1 applic DAILY@2000 TOPIC 02/23/20 20:00 05/23/20 19:59 03/05/20 20:06 Dextrose (Dextrose 50%) 25 ml Q30M PRN IV Hypoglycemia 02/23/20 09:00 05/23/20 08:59 Dextrose (Dextrose 50%) 50 ml Q30M PRN IV Hypoglycemia 02/23/20 09:00 05/23/20 08:59 Diphenhydramine HCl (Benadryl) 25 mg Q6H PRN ORAL Itching/Pruritis 02/22/20 14:15 03/23/20 14:14 02/26/20 01:34 Fentanyl Citrate 2500 mcg/Sodium Chloride 250 ml @ 0 mls/hr Q24H IV 03/01/20 19:45 03/08/20 19:44 03/05/20 21:21 Insulin Aspart (NovoLOG) Q6HR SUBQ 02/28/20 18:00 05/28/20 17:59 03/06/20 00:21 Metoclopramide HCl (Reglan) 5 mg Q6HR IVP 03/01/20 12:00 03/31/20 11:59 03/06/20 05:45 Midazolam HCl 100 ml @ 0 mls/hr Q24H IV 02/26/20 15:06 05/26/20 15:05 02/26/20 15:48 Norepinephrine Bitartrate 8 mg/ Dextrose 500 ml @ 0 mls/hr Q24H IV 02/23/20 19:01 03/24/20 19:00 03/06/20 04:19 Pantoprazole (Protonix) 40 mg DAILY IVP 02/23/20 09:30 5/28/20 09:29 03/06/20 08:10 Phenylephrine HCl 50 mg/Dextrose 250 ml @ 6 mls/hr Q24H IV 02/29/20 10:45 03/30/20 10:44 03/04/20 04:43 Piperacillin Sod/ Tazobactam Sod 3.375 gm/Dextrose 110 ml @ 27.5 mls/hr Q8H IVPB 03/01/20 01:00 03/08/20 00:59 03/06/20 08:10 Vancomycin HCl (Vanco rx to dose) 1 ea DAILY PRN MISC Per rx protocol 02/22/20 14:30 03/23/20 14:29 Assessment/Plan Assessment/Plan IMPRESSION: 1. Respiratory failure. 2. Bilateral pneumonia. + COVID 19 3. Pulmonary edema. 4. Diabetes mellitus. 5. Left PTX with subcut emphysema; s/p chest tube DISCUSSION: Positive COVID 19 pcr The patient is critically ill at this point in time. Poor prognosis Continue pressors Continue broad-spectrum antibiotics. Continue respiratory support; will adjust vent settings I will follow carefully. S/p chest tube Continue Ac mode 100 FiO2 and PEEP 5 SaO2 97% Decreased PEEP due to PTX Martine Rodriguez Omar Syed MD March 06, 2020 09:07
[2020-03-06] MEDS: fentaNYL Citrate 2,500 MCG in NS 200 ML IV SCH (10:00)
[2020-03-06] MEDS: Phenylephrine 50 MG in D5W 245 ML IV SCH (10:45)
--- NOTE | 2020-03-06 11:00 | Nephrology Progress Note ---
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 # h/o DVT # schizophrenia, bipolar #thrombocytopenia #hypokalemia, hypophos - repleted #hypoalbuminemia - check urine chem - check urine osm - replete sodium phos - albumin 25g x1 today - monitor sodium - replete lytes, phos and K prn - continue icu care - off IVF - replete lytes prn - vasopressor per pulmonary - vent management per pulm - antibiotics per ID - check free calcium in am - monitor lytes - BG control - holding antihypertensive Subjective ROS Limited/Unobtainable: Yes Subjective labs reviewed sodium 123 phos low s/p prbc transfusion hemoglobin 10.1 on levo drip sodium low - but stable Fio2 100 remains intubated Objective Objective Last 24 Hour Vital Signs Date Time Temp Pulse Resp B/P (MAP) Pulse Ox O2 Delivery O2 Flow Rate FiO2 03/06/20 10:45 109 113/48 03/06/20 10:00 109 20 113/48 (69) 100 03/06/20 10:00 20 Mechanical Ventilator 03/06/20 10:00 113/48 03/06/20 09:37 104/48 03/06/20 09:00 21 Mechanical Ventilator 03/06/20 09:00 104/58 03/06/20 09:00 112 21 104/48 (66) 98 03/06/20 08:30 114 22 123/54 (77) 93 03/06/20 08:15 100.5 113 23 126/54 (78) 92 03/06/20 08:00 113 21 134/56 (82) 92 03/06/20 08:00 21 Mechanical Ventilator 03/06/20 08:00 134/56 03/06/20 08:00 100 03/06/20 08:00 110 03/06/20 08:00 Mechanical Ventilator 03/06/20 07:39 109 20 100 03/06/20 07:00 110 21 102/59 (73) 94 03/06/20 07:00 24 Mechanical Ventilator 80 03/06/20 07:00 101/68 03/06/20 06:30 113 20 99/52 (68) 96 03/06/20 06:30 113 20 03/06/20 06:00 24 Mechanical Ventilator 100 03/06/20 06:00 90/40 03/06/20 06:00 114 21 90/40 (57) 97 03/06/20 05:55 101.6 03/06/20 05:30 119 22 99/41 (60) 98 03/06/20 05:00 118 22 123/47 (72) 93 03/06/20 05:00 24 Mechanical Ventilator 100 03/06/20 05:00 123/47 03/06/20 04:44 102 27 100 03/06/20 04:30 118 24 118/50 (72) 92 03/06/20 04:19 92/38 03/06/20 04:00 Mechanical Ventilator 03/06/20 04:00 100 03/06/20 04:00 119 23 121/49 (73) 90 03/06/20 04:00 22 Mechanical Ventilator 100 03/06/20 04:00 121/49 03/06/20 04:00 114 03/06/20 03:30 116 21 108/45 (66) 91 03/06/20 03:00 118 21 104/43 (63) 88 03/06/20 03:00 21 Mechanical Ventilator 100 03/06/20 03:00 104/43 03/06/20 02:37 109 24 100 03/06/20 02:30 119 21 103/42 (62) 87 03/06/20 02:00 118 21 109/40 (63) 88 03/06/20 02:00 23 Mechanical Ventilator 100 03/06/20 02:00 109/41 03/06/20 01:30 115 22 109/41 (63) 88 03/06/20 01:00 22 Mechanical Ventilator 100 03/06/20 01:00 108/41 03/06/20 01:00 113 21 108/41 (63) 89 03/06/20 00:30 108/41 03/06/20 00:30 112 20 108/41 (63) 89 03/06/20 00:15 102/38 03/06/20 00:00 100.0 112 20 95/40 (58) 90 03/06/20 00:00 Mechanical Ventilator 03/06/20 00:00 21 Mechanical Ventilator 100 03/06/20 00:00 95/40 03/05/20 23:30 111 21 110/42 (64) 89 03/05/20 23:15 111 20 101/41 (61) 89 03/05/20 23:00 111 20 100/40 (60) 89 03/05/20 23:00 24 Mechanical Ventilator 100 03/05/20 23:00 100/40 03/05/20 22:50 116 20 100 03/05/20 22:30 100.4 111 20 113/45 (67) 89 03/05/20 22:12 103/38 03/05/20 22:02 98.3 03/05/20 22:00 28 Mechanical Ventilator 100 03/05/20 22:00 126/47 03/05/20 22:00 108 22 103/38 (59) 86 03/05/20 21:30 109 23 123/51 (75) 89 03/05/20 21:21 25 Mechanical Ventilator 100 03/05/20 21:00 25 Mechanical Ventilator 100 03/05/20 21:00 116/57 03/05/20 21:00 105 20 109/46 (67) 91 03/05/20 20:30 106 20 114/44 (67) 92 03/05/20 20:00 106 03/05/20 20:00 98.3 109 20 122/48 (72) 94 03/05/20 20:00 23 Mechanical Ventilator 80 03/05/20 20:00 101/47 03/05/20 20:00 Mechanical Ventilator 03/05/20 20:00 100 03/05/20 19:30 107 24 130/47 (74) 88 03/05/20 19:20 108 20 100 03/05/20 19:00 21 Mechanical Ventilator 80 03/05/20 19:00 135/45 03/05/20 19:00 110 23 135/45 (75) 87 03/05/20 18:33 110 23 140/46 (77) 89 03/05/20 18:00 109 23 137/46 (76) 89 03/05/20 18:00 24 Mechanical Ventilator 80 03/05/20 18:00 137/46 03/05/20 17:45 109 23 148/47 (80) 87 03/05/20 17:30 106 24 147/45 (79) 90 03/05/20 17:15 98.8 105 24 144/49 (80) 91 03/05/20 17:00 106 24 150/46 (80) 91 03/05/20 17:00 22 Mechanical Ventilator 80 03/05/20 17:00 150/46 03/05/20 16:30 103 24 145/51 (82) 92 03/05/20 16:00 103 03/05/20 16:00 80 03/05/20 16:00 22 Mechanical Ventilator 80 03/05/20 16:00 107/39 03/05/20 16:00 95 21 107/39 (61) 97 03/05/20 16:00 Mechanical Ventilator 03/05/20 15:45 85 20 108/37 (60) 99 03/05/20 15:30 85 20 119/41 (67) 99 03/05/20 15:24 86 20 119/39 (65) 98 03/05/20 15:20 85 20 80 03/05/20 15:15 88 20 76/28 (44) 97 03/05/20 15:00 89 19 119/42 (67) 99 03/05/20 15:00 24 Mechanical Ventilator 80 03/05/20 15:00 119/42 03/05/20 14:46 99/38 03/05/20 14:45 86 22 100/39 (59) 98 03/05/20 14:30 86 21 99/38 (58) 98 03/05/20 14:00 89 21 89/37 (54) 96 03/05/20 14:00 22 Mechanical Ventilator 80 03/05/20 14:00 89/37 03/05/20 13:45 88 22 93/37 (55) 97 03/05/20 13:30 91 22 114/41 (65) 99 03/05/20 13:00 92 22 112/41 (64) 99 03/05/20 13:00 22 Mechanical Ventilator 80 03/05/20 13:00 112/41 03/05/20 12:30 86 22 101/38 (59) 98 03/05/20 12:00 Mechanical Ventilator 03/05/20 12:00 86 03/05/20 12:00 80 03/05/20 12:00 98.1 87 22 101/38 (59) 97 03/05/20 12:00 22 Mechanical Ventilator 80 03/05/20 12:00 101/38 03/05/20 11:30 86 22 100/38 (58) 97 03/05/20 11:09 87 22 80 03/05/20 11:00 91 22 125/43 (70) 98 03/05/20 11:00 22 Mechanical Ventilator 80 03/05/20 11:00 125/43 Intake and Output 03/05/20 03/06/20 19:00 07:00 Intake Total 1229.86 ml 1602.5 ml Output Total 545 ml 500 ml Balance 684.86 ml 1102.5 ml Free Water 80 ml IV Total 1109.86 ml 1402.5 ml Tube Feeding 120 ml 120 ml Output Urine Total 485 ml 500 ml Chest Tube Drainage Total 60 ml Laboratory Tests 03/06/20 03:30: White Blood Count 17.7#H, Red Blood Count 3.26L, Hemoglobin 10.1#L, Hematocrit 29.9#L, Mean Corpuscular Volume 92, Mean Corpuscular Hemoglobin 31.1H, Mean Corpuscular Hemoglobin Concent 33.8, Red Cell Distribution Width 15.2H, Platelet Count 43L, Mean Platelet Volume 13.0H, Neutrophils (%) (Auto) , Lymphocytes (%) (Auto) , Monocytes (%) (Auto) , Eosinophils (%) (Auto) , Basophils (%) (Auto) , Differential Total Cells Counted 100, Neutrophils % ( Manual) 87H, Lymphocytes % (Manual) 2L, Monocytes % (Manual) 2, Eosinophils % ( Manual) 0, Basophils % (Manual) 0, Band Neutrophils 9H, Platelet Estimate DecreasedL, Platelet Morphology Normal, Polychromasia 1+, Hypochromasia 1+, Anisocytosis 1+, Prothrombin Time 17.0H, Prothromb Time International Ratio 1.6H , Activated Partial Thromboplast Time 33, Fibrinogen 466H, Fibrin Degradation Products, Quant [Pending], D-Dimer 10.40H, Sodium Level 123L, Potassium Level 4.1, Chloride Level 92L, Carbon Dioxide Level 30, Anion Gap 1L, Blood Urea Nitrogen 34H, Creatinine 1.2, Estimat Glomerular Filtration Rate 58.9, Glucose Level 126H, Calcium Level 7.1L, Ionized Calcium (Measured) [Pending], Phosphorus Level 2.4L, Magnesium Level 1.9, Random Vancomycin Level 19.5 Height (Feet): 5 Height (Inches): 5.00 Weight (Pounds): 146 Objective General Appearance: other - intubated Lines, tubes and drains: peripheral HEENT: normocephalic, atraumatic, other - dry mucous membranes Neck: non-tender, normal alignment Respiratory/Chest: rhonchi - bilaterally Cardiovascular/Chest: normal peripheral pulses, normal rate Abdomen: soft, hypoactive bowel sounds Extremities: normal range of motion, no calf tenderness, non-pitting, no edema Skin Exam: normal pigmentation, warm/dry Dwayne Salas M.D. March 06, 2020 11:00
[2020-03-06] MEDS ORDERED: Sodium Phosphate 30 MM in NS 275 ML IVPB ONE (11:30)
--- NOTE | 2020-03-06 12:01 | General Progress Note ---
Assessment/Plan Status: unchanged Assessment/Plan: HPI/CC: 74 y/o M from [place], PMH HTN, DMT2, dementia, Alzheimers dx, h/o CVA/TIA, h /o DVT, schizophrenia who presents for Fever. In the ED, pt found to be septic, Tm 100.9, RR22, WBC 7.3, Lactic acid 2.8, and ABG revealed acute hypoxic respiratory failure. Pt was intubated and will be admitted to ICU for acute hypoxic respiratory failure and pending COVID r/o. Assessment #Acute Hypoxic Resp Failure 2/2 COVID/HCAP+ #PTX s/p left Chest Tube #Septic Shock --> WBC climbing on 03/06, sent repeat Cultures #Blood transfusion Requiring Anemia w/ Thromcytopenia #DMII #Anemia of Chronic Dx #Dementia/Psych Hx Plan Appreciate Consultants Continue Vent management , Fentanyl for sedation, Currently on Levophed , s/p Fredrick Chest tube management per surgery AB w/ Vancomycin, Zosyn, Doxycycline --> S/P Plaquenil--> repeat amaya Cx 03/06 given climbing WBC and fevers Trend Predictive Markers Q3 days, Ddimer, CRP, Procalcitonin, Ferritin Weight based insulin dosing , adjust prn, goal blood sugar less than 180 DVT ppx, Tube Feeding, Supportive Measures, Vitamins 03/06: WBC climbing, continue AB. F/U with ID, repeat Amaya Cx given Fevers. Subjective Date patient seen: March 06, 2020 Allergies: Coded Allergies: No Known Allergies (Unverified , 01/19/19) Subjective Patient remains on levophed, FI02,80%. S/P PRBC with good response ; WBC slightly up today and patient continues to spike fevers, will monitor ID input , he is on broad spectrum AB. Platelets noted. Last CXR on 03/05 did not reveal PTX, left chest tube in place . Will repeat Amaya Cx as last from several days ago. Objective Last 24 Hour Vital Signs Date Time Temp Pulse Resp B/P (MAP) Pulse Ox O2 Delivery O2 Flow Rate FiO2 03/06/20 11:03 110 20 126/56 (79) 98 03/06/20 11:00 20 Mechanical Ventilator 03/06/20 11:00 126/56 03/06/20 10:45 109 113/48 03/06/20 10:00 109 20 113/48 (69) 100 03/06/20 10:00 20 Mechanical Ventilator 03/06/20 10:00 113/48 03/06/20 09:37 104/48 03/06/20 09:00 21 Mechanical Ventilator 03/06/20 09:00 104/58 03/06/20 09:00 112 21 104/48 (66) 98 03/06/20 08:30 114 22 123/54 (77) 93 03/06/20 08:15 100.5 113 23 126/54 (78) 92 03/06/20 08:00 113 21 134/56 (82) 92 03/06/20 08:00 21 Mechanical Ventilator 03/06/20 08:00 134/56 03/06/20 08:00 100 03/06/20 08:00 110 03/06/20 08:00 Mechanical Ventilator 03/06/20 07:39 109 20 100 03/06/20 07:00 110 21 102/59 (73) 94 03/06/20 07:00 24 Mechanical Ventilator 80 03/06/20 07:00 101/68 03/06/20 06:30 113 20 99/52 (68) 96 03/06/20 06:30 113 20 03/06/20 06:00 24 Mechanical Ventilator 100 03/06/20 06:00 90/40 03/06/20 06:00 114 21 90/40 (57) 97 03/06/20 05:55 101.6 03/06/20 05:30 119 22 99/41 (60) 98 03/06/20 05:00 118 22 123/47 (72) 93 03/06/20 05:00 24 Mechanical Ventilator 100 03/06/20 05:00 123/47 03/06/20 04:44 102 27 100 03/06/20 04:30 118 24 118/50 (72) 92 03/06/20 04:19 92/38 03/06/20 04:00 Mechanical Ventilator 03/06/20 04:00 100 03/06/20 04:00 119 23 121/49 (73) 90 03/06/20 04:00 22 Mechanical Ventilator 100 03/06/20 04:00 121/49 03/06/20 04:00 114 03/06/20 03:30 116 21 108/45 (66) 91 03/06/20 03:00 118 21 104/43 (63) 88 03/06/20 03:00 21 Mechanical Ventilator 100 03/06/20 03:00 104/43 03/06/20 02:37 109 24 100 03/06/20 02:30 119 21 103/42 (62) 87 03/06/20 02:00 118 21 109/40 (63) 88 03/06/20 02:00 23 Mechanical Ventilator 100 03/06/20 02:00 109/41 03/06/20 01:30 115 22 109/41 (63) 88 03/06/20 01:00 22 Mechanical Ventilator 100 03/06/20 01:00 108/41 03/06/20 01:00 113 21 108/41 (63) 89 03/06/20 00:30 108/41 03/06/20 00:30 112 20 108/41 (63) 89 03/06/20 00:15 102/38 03/06/20 00:00 100.0 112 20 95/40 (58) 90 03/06/20 00:00 Mechanical Ventilator 03/06/20 00:00 21 Mechanical Ventilator 100 03/06/20 00:00 95/40 03/05/20 23:30 111 21 110/42 (64) 89 03/05/20 23:15 111 20 101/41 (61) 89 03/05/20 23:00 111 20 100/40 (60) 89 03/05/20 23:00 24 Mechanical Ventilator 100 03/05/20 23:00 100/40 03/05/20 22:50 116 20 100 03/05/20 22:30 100.4 111 20 113/45 (67) 89 03/05/20 22:12 103/38 03/05/20 22:02 98.3 03/05/20 22:00 28 Mechanical Ventilator 100 03/05/20 22:00 126/47 03/05/20 22:00 108 22 103/38 (59) 86 03/05/20 21:30 109 23 123/51 (75) 89 03/05/20 21:21 25 Mechanical Ventilator 100 03/05/20 21:00 25 Mechanical Ventilator 100 03/05/20 21:00 116/57 03/05/20 21:00 105 20 109/46 (67) 91 03/05/20 20:30 106 20 114/44 (67) 92 03/05/20 20:00 106 03/05/20 20:00 98.3 109 20 122/48 (72) 94 03/05/20 20:00 23 Mechanical Ventilator 80 03/05/20 20:00 101/47 03/05/20 20:00 Mechanical Ventilator 03/05/20 20:00 100 03/05/20 19:30 107 24 130/47 (74) 88 03/05/20 19:20 108 20 100 03/05/20 19:00 21 Mechanical Ventilator 80 03/05/20 19:00 135/45 03/05/20 19:00 110 23 135/45 (75) 87 03/05/20 18:33 110 23 140/46 (77) 89 03/05/20 18:00 109 23 137/46 (76) 89 03/05/20 18:00 24 Mechanical Ventilator 80 03/05/20 18:00 137/46 03/05/20 17:45 109 23 148/47 (80) 87 03/05/20 17:30 106 24 147/45 (79) 90 03/05/20 17:15 98.8 105 24 144/49 (80) 91 03/05/20 17:00 106 24 150/46 (80) 91 03/05/20 17:00 22 Mechanical Ventilator 80 03/05/20 17:00 150/46 03/05/20 16:30 103 24 145/51 (82) 92 03/05/20 16:00 103 03/05/20 16:00 80 03/05/20 16:00 22 Mechanical Ventilator 80 03/05/20 16:00 107/39 03/05/20 16:00 95 21 107/39 (61) 97 03/05/20 16:00 Mechanical Ventilator 03/05/20 15:45 85 20 108/37 (60) 99 03/05/20 15:30 85 20 119/41 (67) 99 03/05/20 15:24 86 20 119/39 (65) 98 03/05/20 15:20 85 20 80 03/05/20 15:15 88 20 76/28 (44) 97 03/05/20 15:00 89 19 119/42 (67) 99 03/05/20 15:00 24 Mechanical Ventilator 80 03/05/20 15:00 119/42 03/05/20 14:46 99/38 5/9/20 14:45 86 22 100/39 (59) 98 03/05/20 14:30 86 21 99/38 (58) 98 03/05/20 14:00 89 21 89/37 (54) 96 03/05/20 14:00 22 Mechanical Ventilator 80 03/05/20 14:00 89/37 03/05/20 13:45 88 22 93/37 (55) 97 03/05/20 13:30 91 22 114/41 (65) 99 03/05/20 13:00 92 22 112/41 (64) 99 03/05/20 13:00 22 Mechanical Ventilator 80 03/05/20 13:00 112/41 03/05/20 12:30 86 22 101/38 (59) 98 03/05/20 12:00 Mechanical Ventilator 03/05/20 12:00 86 03/05/20 12:00 80 03/05/20 12:00 98.1 87 22 101/38 (59) 97 03/05/20 12:00 22 Mechanical Ventilator 80 03/05/20 12:00 101/38 Intake and Output 03/05/20 03/06/20 19:00 07:00 Intake Total 1229.86 ml 1602.5 ml Output Total 545 ml 500 ml Balance 684.86 ml 1102.5 ml Free Water 80 ml IV Total 1109.86 ml 1402.5 ml Tube Feeding 120 ml 120 ml Output Urine Total 485 ml 500 ml Chest Tube Drainage Total 60 ml Laboratory Tests 03/06/20 03:30: White Blood Count 17.7#H, Red Blood Count 3.26L, Hemoglobin 10.1#L, Hematocrit 29.9#L, Mean Corpuscular Volume 92, Mean Corpuscular Hemoglobin 31.1H, Mean Corpuscular Hemoglobin Concent 33.8, Red Cell Distribution Width 15.2H, Platelet Count 43L, Mean Platelet Volume 13.0H, Neutrophils (%) (Auto) , Lymphocytes (%) (Auto) , Monocytes (%) (Auto) , Eosinophils (%) (Auto) , Basophils (%) (Auto) , Differential Total Cells Counted 100, Neutrophils % ( Manual) 87H, Lymphocytes % (Manual) 2L, Monocytes % (Manual) 2, Eosinophils % ( Manual) 0, Basophils % (Manual) 0, Band Neutrophils 9H, Platelet Estimate DecreasedL, Platelet Morphology Normal, Polychromasia 1+, Hypochromasia 1+, Anisocytosis 1+, Prothrombin Time 17.0H, Prothromb Time International Ratio 1.6H , Activated Partial Thromboplast Time 33, Fibrinogen 466H, Fibrin Degradation Products, Quant [Pending], D-Dimer 10.40H, Sodium Level 123L, Potassium Level 4.1, Chloride Level 92L, Carbon Dioxide Level 30, Anion Gap 1L, Blood Urea Nitrogen 34H, Creatinine 1.2, Estimat Glomerular Filtration Rate 58.9, Glucose Level 126H, Calcium Level 7.1L, Ionized Calcium (Measured) [Pending], Phosphorus Level 2.4L, Magnesium Level 1.9, Random Vancomycin Level 19.5 Height (Feet): 5 Height (Inches): 5.00 Weight (Pounds): 146 Objective General Appearance: other - intubated , sedated Cardiovascular: normal rate, regular rhythm, other - requiring pressor support Respiratory/Chest: other - on Vent, Left chest tube in place Abdomen: non tender, soft Extremities: swelling Edema: 1+ Generalized Neurologic: other - Sedated Alison Bah D.O. March 06, 2020 12:01
--- NOTE | 2020-03-06 12:55 | Hematology/Onc Progress Note ---
Assessment/Plan Assessment/Plan # Severe thrombocytopenia - potential causes multifactorial, evaluate liver and viral etiologies to begin, in this particular case, given mosf, is due to [id number], has had hyperbilirubinemia, has received heparin and zosyn both culprits as well --> Hep panel and HIV ordered -- neg --> US abd to evaluate for cirrhosis and hsm ordered ->when covid is negative --> Peripheral smear ordered to evaluate for blasts /schistocytes (ALSO HAVE Ordered for DIC panel)-->DIC panel reviewed, D-dimer high, inr higher, hapto pending --> abx and other meds have been reviewed --> ok for ppx if plt >50k w/ either heparin or lovenox --> Transfuse if Plt < 20k and fever, or if Plt < 10k without fever --> off heparin now, have ordered for hit-pf4 antibody test-->neg --> plt trend 15-->20k-->37k->42 --> HOLD LOVENOX SQ # Anemia of chronic disease due to underlying chronic medical issues, multifactorial v Gi bleed --> Anemia workup has been ordered, rule out gi bleed --> No evidence of hemolysis is noted, peripheral smear has been reviewed. --> Hgb goal >7. Transfuse prn. --> Epogen or iron at this time is not particularly indicated --> Medications have been reviewed --> low threshold for gi evaluation in case has occult + --> bone marrow biopsy is not indicated given the other more likely causes --> hgb trend 9.9-->9.7-->8.6->10 # Leukocytosis with septic shock 2/2 due to covid 19 --> on abx as per id -->zosyn/doxy/vanc --> wbc remains elev 17k # Acute Hypoxic Respiratory Failure --> now s/p vent --> in icu # HCAP COVID positive --> abx, plaq and supp care # Jaundiced with Hyperbilirubinemia --> per gi--> with ogt --> have ordered repeat bilis, has improved # Schizophrenia # Bipolar dx # Dvt ppx scds The timing of this note does not necessarily reflect the time of the patient was seen. Greatly appreciate consultation. Subjective Allergies: Coded Allergies: No Known Allergies (Unverified , 01/19/19) All Systems: reviewed and negative except above Subjective 02/28 remains on vent, og, rush, sedated in icu, on pressors, plt 15k, smear pending 03/02 icu, levo gtt, s/p ffp x2 units, on abx, labs pending 03/03 remains on vent with ogt, no bleeding, no night sweats 03/04 no bleeding, meds noted, no f/c, no night sweats 03/06 intubated, left chest tube in pace, with of, no bleeding Objective Objective Current Medications Medications (Trade) Dose Ordered Sig/Cirilo Route PRN Reason Start Time Stop Time Status Last Admin Dose Admin Acetaminophen (Tylenol) 650 mg Q4H PRN ORAL Fever 02/22/20 14:15 03/23/20 14:14 02/28/20 17:52 Acetaminophen (Tylenol) 650 mg Q4H PRN ORAL Mild Pain (Pain Scale 1-3) 02/22/20 14:15 03/23/20 14:14 03/03/20 17:31 Acetaminophen (Tylenol) 650 mg Q4H PRN RECTAL Mild Pain (Pain Scale 1-3) 02/22/20 14:15 03/23/20 14:14 02/22/20 21:28 Acetaminophen (Tylenol) 650 mg Q4H PRN RECTAL FEVER 02/22/20 14:15 03/23/20 14:14 03/06/20 04:20 Chlorhexidine Gluconate (Maira-Hex 2%) 1 applic DAILY@2000 TOPIC 02/23/20 20:00 05/23/20 19:59 03/05/20 20:06 Dextrose (Dextrose 50%) 25 ml Q30M PRN IV Hypoglycemia 02/23/20 09:00 05/23/20 08:59 Dextrose (Dextrose 50%) 50 ml Q30M PRN IV Hypoglycemia 02/23/20 09:00 05/23/20 08:59 Diphenhydramine HCl (Benadryl) 25 mg Q6H PRN ORAL Itching/Pruritis 02/22/20 14:15 03/23/20 14:14 02/26/20 01:34 Fentanyl Citrate 2500 mcg/Sodium Chloride 250 ml @ 0 mls/hr Q24H IV 03/01/20 19:45 03/08/20 19:44 03/06/20 10:00 Insulin Aspart (NovoLOG) Q6HR SUBQ 02/28/20 18:00 05/28/20 17:59 03/06/20 12:25 Metoclopramide HCl (Reglan) 5 mg Q6HR IVP 03/01/20 12:00 03/31/20 11:59 03/06/20 11:35 Midazolam HCl 100 ml @ 0 mls/hr Q24H IV 02/26/20 15:06 05/26/20 15:05 02/26/20 15:48 Norepinephrine Bitartrate 8 mg/ Dextrose 500 ml @ 0 mls/hr Q24H IV 02/23/20 19:01 03/24/20 19:00 03/06/20 09:37 Pantoprazole (Protonix) 40 mg DAILY IVP 02/23/20 09:30 03/24/20 09:29 03/06/20 08:10 Phenylephrine HCl 50 mg/Dextrose 250 ml @ 6 mls/hr Q24H IV 02/29/20 10:45 03/30/20 10:44 03/04/20 04:43 Piperacillin Sod/ Tazobactam Sod 3.375 gm/Dextrose 110 ml @ 27.5 mls/hr Q8H IVPB 03/01/20 01:00 03/08/20 00:59 03/06/20 08:10 Sodium Phosphate 30 mm/Sodium Chloride 285 ml @ 47.5 mls/hr ONCE ONCE IVPB 03/06/20 11:30 03/06/20 17:29 03/06/20 11:59 Vancomycin HCl (Vanco rx to dose) 1 ea DAILY PRN MISC Per rx protocol 02/22/20 14:30 03/23/20 14:29 Vancomycin HCl 750 mg/Sodium Chloride 275 ml @ 183.333 mls/hr ONCE ONCE IVPB 03/06/20 18:00 03/06/20 19:29 Last 24 Hour Vital Signs Date Time Temp Pulse Resp B/P (MAP) Pulse Ox O2 Delivery O2 Flow Rate FiO2 03/06/20 12:30 110 20 126/55 (78) 97 03/06/20 12:15 110 20 124/58 (80) 97 03/06/20 12:00 Mechanical Ventilator 03/06/20 12:00 109 03/06/20 12:00 21 Mechanical Ventilator 03/06/20 12:00 131/55 03/06/20 12:00 100 03/06/20 12:00 99.9 111 21 131/55 (80) 97 03/06/20 11:26 110 20 100 03/06/20 11:03 110 20 126/56 (79) 98 03/06/20 11:00 20 Mechanical Ventilator 03/06/20 11:00 126/56 03/06/20 10:45 109 113/48 03/06/20 10:00 109 20 113/48 (69) 100 03/06/20 10:00 20 Mechanical Ventilator 03/06/20 10:00 113/48 03/06/20 09:37 104/48 03/06/20 09:00 21 Mechanical Ventilator 03/06/20 09:00 104/58 03/06/20 09:00 112 21 104/48 (66) 98 03/06/20 08:30 114 22 123/54 (77) 93 03/06/20 08:15 100.5 113 23 126/54 (78) 92 03/06/20 08:00 113 21 134/56 (82) 92 03/06/20 08:00 21 Mechanical Ventilator 03/06/20 08:00 134/56 03/06/20 08:00 100 03/06/20 08:00 110 03/06/20 08:00 Mechanical Ventilator 03/06/20 07:39 109 20 100 03/06/20 07:00 110 21 102/59 (73) 94 03/06/20 07:00 24 Mechanical Ventilator 80 03/06/20 07:00 101/68 03/06/20 06:30 113 20 99/52 (68) 96 03/06/20 06:30 113 20 03/06/20 06:00 24 Mechanical Ventilator 100 03/06/20 06:00 90/40 03/06/20 06:00 114 21 90/40 (57) 97 03/06/20 05:55 101.6 03/06/20 05:30 119 22 99/41 (60) 98 03/06/20 05:00 118 22 123/47 (72) 93 03/06/20 05:00 24 Mechanical Ventilator 100 03/06/20 05:00 123/47 03/06/20 04:44 102 27 100 03/06/20 04:30 118 24 118/50 (72) 92 03/06/20 04:19 92/38 03/06/20 04:00 Mechanical Ventilator 03/06/20 04:00 100 03/06/20 04:00 119 23 121/49 (73) 90 03/06/20 04:00 22 Mechanical Ventilator 100 03/06/20 04:00 121/49 03/06/20 04:00 114 03/06/20 03:30 116 21 108/45 (66) 91 03/06/20 03:00 118 21 104/43 (63) 88 03/06/20 03:00 21 Mechanical Ventilator 100 03/06/20 03:00 104/43 03/06/20 02:37 109 24 100 03/06/20 02:30 119 21 103/42 (62) 87 03/06/20 02:00 118 21 109/40 (63) 88 03/06/20 02:00 23 Mechanical Ventilator 100 03/06/20 02:00 109/41 03/06/20 01:30 115 22 109/41 (63) 88 03/06/20 01:00 22 Mechanical Ventilator 100 03/06/20 01:00 108/41 03/06/20 01:00 113 21 108/41 (63) 89 03/06/20 00:30 108/41 03/06/20 00:30 112 20 108/41 (63) 89 03/06/20 00:15 102/38 03/06/20 00:00 100.0 112 20 95/40 (58) 90 03/06/20 00:00 Mechanical Ventilator 03/06/20 00:00 21 Mechanical Ventilator 100 03/06/20 00:00 95/40 03/05/20 23:30 111 21 110/42 (64) 89 03/05/20 23:15 111 20 101/41 (61) 89 03/05/20 23:00 111 20 100/40 (60) 89 03/05/20 23:00 24 Mechanical Ventilator 100 03/05/20 23:00 100/40 03/05/20 22:50 116 20 100 03/05/20 22:30 100.4 111 20 113/45 (67) 89 03/05/20 22:12 103/38 03/05/20 22:02 98.3 03/05/20 22:00 28 Mechanical Ventilator 100 03/05/20 22:00 126/47 03/05/20 22:00 108 22 103/38 (59) 86 03/05/20 21:30 109 23 123/51 (75) 89 03/05/20 21:21 25 Mechanical Ventilator 100 03/05/20 21:00 25 Mechanical Ventilator 100 03/05/20 21:00 116/57 03/05/20 21:00 105 20 109/46 (67) 91 03/05/20 20:30 106 20 114/44 (67) 92 03/05/20 20:00 106 03/05/20 20:00 98.3 109 20 122/48 (72) 94 03/05/20 20:00 23 Mechanical Ventilator 80 03/05/20 20:00 101/47 03/05/20 20:00 Mechanical Ventilator 03/05/20 20:00 100 03/05/20 19:30 107 24 130/47 (74) 88 03/05/20 19:20 108 20 100 03/05/20 19:00 21 Mechanical Ventilator 80 03/05/20 19:00 135/45 03/05/20 19:00 110 23 135/45 (75) 87 03/05/20 18:33 110 23 140/46 (77) 89 03/05/20 18:00 109 23 137/46 (76) 89 03/05/20 18:00 24 Mechanical Ventilator 80 03/05/20 18:00 137/46 03/05/20 17:45 109 23 148/47 (80) 87 03/05/20 17:30 106 24 147/45 (79) 90 03/05/20 17:15 98.8 105 24 144/49 (80) 91 03/05/20 17:00 106 24 150/46 (80) 91 03/05/20 17:00 22 Mechanical Ventilator 80 03/05/20 17:00 150/46 03/05/20 16:30 103 24 145/51 (82) 92 03/05/20 16:00 103 03/05/20 16:00 80 03/05/20 16:00 22 Mechanical Ventilator 80 03/05/20 16:00 107/39 03/05/20 16:00 95 21 107/39 (61) 97 03/05/20 16:00 Mechanical Ventilator 03/05/20 15:45 85 20 108/37 (60) 99 03/05/20 15:30 85 20 119/41 (67) 99 03/05/20 15:24 86 20 119/39 (65) 98 03/05/20 15:20 85 20 80 03/05/20 15:15 88 20 76/28 (44) 97 03/05/20 15:00 89 19 119/42 (67) 99 03/05/20 15:00 24 Mechanical Ventilator 80 03/05/20 15:00 119/42 03/05/20 14:46 99/38 03/05/20 14:45 86 22 100/39 (59) 98 03/05/20 14:30 86 21 99/38 (58) 98 03/05/20 14:00 89 21 89/37 (54) 96 03/05/20 14:00 22 Mechanical Ventilator 80 03/05/20 14:00 89/37 03/05/20 13:45 88 22 93/37 (55) 97 03/05/20 13:30 91 22 114/41 (65) 99 03/05/20 13:00 92 22 112/41 (64) 99 03/05/20 13:00 22 Mechanical Ventilator 80 03/05/20 13:00 112/41 03/05/20 12:30 86 22 101/38 (59) 98 03/05/20 12:00 Mechanical Ventilator 03/05/20 12:00 86 03/05/20 12:00 80 03/05/20 12:00 98.1 87 22 101/38 (59) 97 03/05/20 12:00 22 Mechanical Ventilator 80 03/05/20 12:00 101/38 03/05/20 11:30 86 22 100/38 (58) 97 03/05/20 11:09 87 22 80 03/05/20 11:00 91 22 125/43 (70) 98 03/05/20 11:00 22 Mechanical Ventilator 80 03/05/20 11:00 125/43 03/05/20 10:30 93 22 113/45 (67) 98 03/05/20 10:00 92 23 135/46 (75) 95 03/05/20 10:00 22 Mechanical Ventilator 80 03/05/20 10:00 135/46 03/05/20 09:00 25 Mechanical Ventilator 80 03/05/20 09:00 140/49 03/05/20 09:00 95 24 140/49 (79) 95 03/05/20 08:55 22 Mechanical Ventilator 80 03/05/20 08:30 93 26 150/50 (83) 98 03/05/20 08:00 88 03/05/20 08:00 22 Mechanical Ventilator 80 03/05/20 08:00 122/44 03/05/20 08:00 98.3 88 22 122/44 (70) 96 03/05/20 08:00 Mechanical Ventilator 03/05/20 08:00 80 03/05/20 07:30 92 21 132/47 (75) 98 03/05/20 07:06 91 24 80 03/05/20 07:00 24 Mechanical Ventilator 80 03/05/20 07:00 144/48 03/05/20 07:00 94 22 144/48 (80) 97 03/05/20 06:45 93 23 151/48 (82) 98 03/05/20 06:30 92 23 03/05/20 06:30 92 23 133/49 (77) 98 03/05/20 06:15 89 22 121/42 (68) 97 03/05/20 06:00 24 Mechanical Ventilator 80 03/05/20 06:00 125/42 03/05/20 06:00 91 23 125/42 (69) 97 03/05/20 05:53 92/37 03/05/20 05:45 95 22 92/37 (55) 94 03/05/20 05:30 92 23 110/40 (63) 96 03/05/20 05:15 94 23 114/42 (66) 96 03/05/20 05:00 96 22 119/46 (70) 97 03/05/20 05:00 21 Mechanical Ventilator 80 03/05/20 05:00 119/46 03/05/20 04:45 101 21 129/46 (73) 96 03/05/20 04:30 99 21 142/49 (80) 97 03/05/20 04:15 97 21 128/43 (71) 97 03/05/20 04:00 Mechanical Ventilator 03/05/20 04:00 100 03/05/20 04:00 80 03/05/20 04:00 23 Mechanical Ventilator 80 03/05/20 04:00 121/39 03/05/20 04:00 101.2 100 22 121/39 (66) 97 03/05/20 03:45 101 21 126/45 (72) 98 03/05/20 03:30 113/36 03/05/20 03:30 100 21 113/38 (63) 98 03/05/20 03:15 101 21 128/42 (70) 98 03/05/20 03:15 128/42 03/05/20 03:13 104 22 80 03/05/20 03:00 100 22 101/38 (59) 98 03/05/20 03:00 28 Mechanical Ventilator 80 03/05/20 03:00 101/38 03/05/20 02:45 101 21 99/39 (59) 98 03/05/20 02:45 99/36 03/05/20 02:30 98/38 03/05/20 02:30 102 21 98/38 (58) 98 03/05/20 02:15 106/38 03/05/20 02:15 104 21 106/38 (60) 98 03/05/20 02:00 106 21 105/41 (62) 98 03/05/20 02:00 28 Mechanical Ventilator 80 03/05/20 02:00 105/41 03/05/20 01:45 106 22 101/41 (61) 99 03/05/20 01:45 101/41 03/05/20 01:30 105/41 03/05/20 01:30 107 22 105/41 (62) 98 03/05/20 01:15 107 22 86/36 (53) 97 03/05/20 01:15 86/36 03/05/20 01:00 109 23 103/43 (63) 97 03/05/20 01:00 30 Mechanical Ventilator 80 03/05/20 01:00 103/43 03/05/20 00:45 102.5 110 23 97/39 (58) 96 03/05/20 00:30 109 23 96/39 (58) 95 03/05/20 00:15 112 22 112/47 (68) 97 03/05/20 00:00 107 24 110/44 (66) 96 03/05/20 00:00 28 Mechanical Ventilator 80 03/05/20 00:00 110/44 03/05/20 00:00 Mechanical Ventilator 03/04/20 23:45 109 25 105/44 (64) 95 03/04/20 23:30 110 24 107/45 (65) 95 03/04/20 23:15 109 25 107/45 (65) 95 03/04/20 23:00 28 Mechanical Ventilator 80 03/04/20 23:00 104/47 03/04/20 23:00 110 25 104/47 (66) 96 03/04/20 22:56 115 25 80 03/04/20 22:30 113 25 110/47 (68) 96 03/04/20 22:00 112 26 112/48 (69) 95 03/04/20 22:00 26 Mechanical Ventilator 80 03/04/20 22:00 112/48 03/04/20 21:45 114/45 03/04/20 21:30 109/51 03/04/20 21:30 114 26 109/51 (70) 94 03/04/20 21:15 110/47 03/04/20 21:00 116 27 116/48 (70) 94 03/04/20 21:00 27 Mechanical Ventilator 80 03/04/20 21:00 116/48 03/04/20 20:45 114/49 03/04/20 20:30 115 27 109/48 (68) 94 03/04/20 20:12 30 Mechanical Ventilator 80 03/04/20 20:00 80 03/04/20 20:00 Mechanical Ventilator 03/04/20 20:00 98.9 118 25 113/45 (67) 95 03/04/20 20:00 25 Mechanical Ventilator 80 03/04/20 20:00 113/45 03/04/20 20:00 118 03/04/20 19:30 117 23 111/47 (68) 96 03/04/20 19:24 117 26 80 03/04/20 19:00 116 28 108/49 (68) 95 03/04/20 19:00 28 Mechanical Ventilator 80 03/04/20 19:00 108/49 03/04/20 18:45 117 27 106/44 (64) 94 03/04/20 18:30 117 29 101/46 (64) 93 03/04/20 18:20 98/46 03/04/20 18:00 30 Mechanical Ventilator 80 03/04/20 18:00 77/42 5/8/20 18:00 117 32 77/42 (54) 92 03/04/20 17:45 118 31 103/48 (66) 92 03/04/20 17:30 119 32 99/46 (63) 91 03/04/20 17:00 118 32 109/48 (68) 92 03/04/20 17:00 30 Mechanical Ventilator 80 03/04/20 17:00 109/48 03/04/20 16:55 116 30 80 03/04/20 16:45 115 33 108/50 (69) 90 03/04/20 16:30 117 30 106/46 (66) 88 03/04/20 16:00 Mechanical Ventilator 03/04/20 16:00 80 03/04/20 16:00 24 Mechanical Ventilator 80 03/04/20 16:00 122/52 03/04/20 16:00 113 03/04/20 16:00 98.5 116 33 122/52 (75) 91 03/04/20 15:30 115 32 116/48 (70) 92 03/04/20 15:20 120 32 80 03/04/20 15:15 114 30 101/47 (65) 91 03/04/20 15:00 28 Mechanical Ventilator 80 03/04/20 15:00 99/48 03/04/20 15:00 116 31 99/48 (65) 94 03/04/20 14:45 113 31 100/49 (66) 88 03/04/20 14:30 117 34 265/112 (162) 92 03/04/20 14:15 118 35 242/125 (164) 91 03/04/20 14:00 32 Mechanical Ventilator 80 03/04/20 14:00 229/90 03/04/20 14:00 118 35 229/90 (136) 90 03/04/20 13:45 117 36 226/88 (134) 91 03/04/20 13:30 116 36 164/126 (139) 92 03/04/20 13:20 117 36 80 03/04/20 13:15 117 35 261/117 (165) 92 03/04/20 13:00 36 Mechanical Ventilator 80 03/04/20 13:00 166/125 03/04/20 13:00 115 34 166/125 (139) 93 Intake and Output 03/05/20 03/06/20 19:00 07:00 Intake Total 1229.86 ml 1602.5 ml Output Total 545 ml 500 ml Balance 684.86 ml 1102.5 ml Free Water 80 ml IV Total 1109.86 ml 1402.5 ml Tube Feeding 120 ml 120 ml Output Urine Total 485 ml 500 ml Chest Tube Drainage Total 60 ml Labs Test 03/04/20 03:30 03/04/20 12:15 03/04/20 13:50 03/05/20 04:00 Sodium Level 129 MMOL/L (136-145) 131 MMOL/L (136-145) Potassium Level 4.2 MMOL/L (3.5-5.1) 4.6 MMOL/L (3.5-5.1) Chloride Level 95 MMOL/L (98-107) 95 MMOL/L (98-107) Carbon Dioxide Level 30 MMOL/L (21-32) 31 MMOL/L (21-32) Anion Gap 4 mmol/L (5-15) 5 mmol/L (5-15) Blood Urea Nitrogen 28 mg/dL (7-18) 31 mg/dL (7-18) Creatinine 0.8 MG/DL (0.55-1.30) 1.0 MG/DL (0.55-1.30) Estimat Glomerular Filtration Rate > 60 mL/min (>60) > 60 mL/min (>60) Glucose Level 121 MG/DL (74-106) 141 MG/DL (74-106) Calcium Level 7.4 MG/DL (8.5-10.1) 6.9 MG/DL (8.5-10.1) Phosphorus Level 2.5 MG/DL (2.5-4.9) Magnesium Level 2.2 MG/DL (1.8-2.4) Vancomycin Level Trough 34.1 ug/mL (5.0-12.0) 34.0 ug/mL (5.0-12.0) Lactate Dehydrogenase 591 U/L (81-234) White Blood Count 7.9 K/UL (4.8-10.8) Red Blood Count 2.18 M/UL (4.70-6.10) Hemoglobin 6.6 G/DL (14.2-18.0) Hematocrit 19.4 % (42.0-52.0) Mean Corpuscular Volume 89 FL (80-99) Mean Corpuscular Hemoglobin 30.5 PG (27.0-31.0) Mean Corpuscular Hemoglobin Concent 34.3 G/DL (32.0-36.0) Red Cell Distribution Width 14.6 % (11.6-14.8) Platelet Count 56 K/UL (150-450) Mean Platelet Volume 11.5 FL (6.5-10.1) Neutrophils (%) (Auto) % (45.0-75.0) Lymphocytes (%) (Auto) % (20.0-45.0) Monocytes (%) (Auto) % (1.0-10.0) Eosinophils (%) (Auto) % (0.0-3.0) Basophils (%) (Auto) % (0.0-2.0) Differential Total Cells Counted 100 Neutrophils % (Manual) 88 % (45-75) Lymphocytes % (Manual) 4 % (20-45) Monocytes % (Manual) 6 % (1-10) Eosinophils % (Manual) 1 % (0-3) Basophils % (Manual) 1 % (0-2) Band Neutrophils 0 % (0-8) Platelet Estimate Decreased Platelet Morphology Normal Hypochromasia 4+ Anisocytosis 1+ Spherocytes 3+ Total Bilirubin 8.8 MG/DL (0.2-1.0) Direct Bilirubin 7.4 MG/DL (0.0-0.3) Aspartate Amino Transf (AST/SGOT) 44 U/L (15-37) Alanine Aminotransferase (ALT/SGPT) 37 U/L (12-78) Alkaline Phosphatase 246 U/L (46-116) Total Protein 5.1 G/DL (6.4-8.2) Albumin 1.7 G/DL (3.4-5.0) Globulin 3.4 g/dL Albumin/Globulin Ratio 0.5 (1.0-2.7) Random Vancomycin Level 28.3 ug/mL Test 03/06/20 03:30 White Blood Count 17.7 K/UL (4.8-10.8) Red Blood Count 3.26 M/UL (4.70-6.10) Hemoglobin 10.1 G/DL (14.2-18.0) Hematocrit 29.9 % (42.0-52.0) Mean Corpuscular Volume 92 FL (80-99) Mean Corpuscular Hemoglobin 31.1 PG (27.0-31.0) Mean Corpuscular Hemoglobin Concent 33.8 G/DL (32.0-36.0) Red Cell Distribution Width 15.2 % (11.6-14.8) Platelet Count 43 K/UL (150-450) Mean Platelet Volume 13.0 FL (6.5-10.1) Neutrophils (%) (Auto) % (45.0-75.0) Lymphocytes (%) (Auto) % (20.0-45.0) Monocytes (%) (Auto) % (1.0-10.0) Eosinophils (%) (Auto) % (0.0-3.0) Basophils (%) (Auto) % (0.0-2.0) Differential Total Cells Counted 100 Neutrophils % (Manual) 87 % (45-75) Lymphocytes % (Manual) 2 % (20-45) Monocytes % (Manual) 2 % (1-10) Eosinophils % (Manual) 0 % (0-3) Basophils % (Manual) 0 % (0-2) Band Neutrophils 9 % (0-8) Platelet Estimate Decreased Platelet Morphology Normal Polychromasia 1+ Hypochromasia 1+ Anisocytosis 1+ Prothrombin Time 17.0 SEC (9.30-11.50) Prothromb Time International Ratio 1.6 (0.9-1.1) Activated Partial Thromboplast Time 33 SEC (23-33) Fibrinogen 466 mg/dL (200-400) D-Dimer 10.40 mg/L FEU (0.00-0.49) Sodium Level 123 MMOL/L (136-145) Potassium Level 4.1 MMOL/L (3.5-5.1) Chloride Level 92 MMOL/L (98-107) Carbon Dioxide Level 30 MMOL/L (21-32) Anion Gap 1 mmol/L (5-15) Blood Urea Nitrogen 34 mg/dL (7-18) Creatinine 1.2 MG/DL (0.55-1.30) Estimat Glomerular Filtration Rate 58.9 mL/min (>60) Glucose Level 126 MG/DL (74-106) Calcium Level 7.1 MG/DL (8.5-10.1) Phosphorus Level 2.4 MG/DL (2.5-4.9) Magnesium Level 1.9 MG/DL (1.8-2.4) Random Vancomycin Level 19.5 ug/mL Height (Feet): 5 Height (Inches): 5.00 Weight (Pounds): 146 Objective Physical Exam: Vitals: reviewed General: NAD HEENT: nc, at ++Ogt Neck: supple Chest: in the icu, remains intubated++, left chest tube+++ Cardiovascular: RRR, no s3, s4 Abdomen: soft, nontender, nd Extremities: no cce, normal range of motion Neuro: alert to self : Montez Maradiaga MD March 06, 2020 12:55
--- NOTE | 2020-03-06 13:43 | GI Progress Note ---
Assessment/Plan Problems: (1) Respiratory failure with hypoxia ICD Codes: J96.91 - Respiratory failure, unspecified with hypoxia SNOMED: 15535806351914438 Qualifiers: Qualified Codes: J96.01 - Acute respiratory failure with hypoxia (2) Sepsis ICD Codes: A41.9 - Sepsis, unspecified organism SNOMED: 56526404 (3) Diabetes mellitus ICD Codes: E11.9 - Type 2 diabetes mellitus without complications SNOMED: 26318430 (4) Elevated LFTs ICD Codes: R79.89 - Other specified abnormal findings of blood chemistry SNOMED: 950644747, [id number] (5) Suspected COVID-19 virus infection ICD Codes: Z20.828 - Contact with and (suspected) exposure to other viral communicable diseases SNOMED: 349425735 Status: unchanged Status Narrative Discussed with Dr. Howe. Assessment/Plan ++Covid reglan monitor for residuals current TF at 10 cc fu labs s/p 2unit PRBC, PRN transfusions OB stool pending abx per ID poor prognosis The patient was seen and examined at bedside and all new and available data was reviewed in the patients chart. I agree with the above findings, impression and plan. (Patient seen earlier today. Signature stamp does not reflect patient encounter time.). - Domo Howe MD Subjective Subjective limited Objective Last 24 Hour Vital Signs Date Time Temp Pulse Resp B/P (MAP) Pulse Ox O2 Delivery O2 Flow Rate FiO2 03/06/20 12:30 110 20 126/55 (78) 97 03/06/20 12:15 110 20 124/58 (80) 97 03/06/20 12:00 Mechanical Ventilator 03/06/20 12:00 109 03/06/20 12:00 21 Mechanical Ventilator 03/06/20 12:00 131/55 03/06/20 12:00 100 03/06/20 12:00 99.9 111 21 131/55 (80) 97 03/06/20 11:26 110 20 100 03/06/20 11:03 110 20 126/56 (79) 98 03/06/20 11:00 20 Mechanical Ventilator 03/06/20 11:00 126/56 03/06/20 10:45 109 113/48 03/06/20 10:00 109 20 113/48 (69) 100 03/06/20 10:00 20 Mechanical Ventilator 03/06/20 10:00 113/48 03/06/20 09:37 104/48 03/06/20 09:00 21 Mechanical Ventilator 03/06/20 09:00 104/58 03/06/20 09:00 112 21 104/48 (66) 98 03/06/20 08:30 114 22 123/54 (77) 93 03/06/20 08:15 100.5 113 23 126/54 (78) 92 03/06/20 08:00 113 21 134/56 (82) 92 03/06/20 08:00 21 Mechanical Ventilator 03/06/20 08:00 134/56 03/06/20 08:00 100 03/06/20 08:00 110 03/06/20 08:00 Mechanical Ventilator 03/06/20 07:39 109 20 100 03/06/20 07:00 110 21 102/59 (73) 94 03/06/20 07:00 24 Mechanical Ventilator 80 03/06/20 07:00 101/68 03/06/20 06:30 113 20 99/52 (68) 96 03/06/20 06:30 113 20 03/06/20 06:00 24 Mechanical Ventilator 100 03/06/20 06:00 90/40 03/06/20 06:00 114 21 90/40 (57) 97 03/06/20 05:55 101.6 03/06/20 05:30 119 22 99/41 (60) 98 03/06/20 05:00 118 22 123/47 (72) 93 03/06/20 05:00 24 Mechanical Ventilator 100 03/06/20 05:00 123/47 03/06/20 04:44 102 27 100 03/06/20 04:30 118 24 118/50 (72) 92 03/06/20 04:19 92/38 03/06/20 04:00 Mechanical Ventilator 03/06/20 04:00 100 03/06/20 04:00 119 23 121/49 (73) 90 03/06/20 04:00 22 Mechanical Ventilator 100 03/06/20 04:00 121/49 03/06/20 04:00 114 03/06/20 03:30 116 21 108/45 (66) 91 03/06/20 03:00 118 21 104/43 (63) 88 03/06/20 03:00 21 Mechanical Ventilator 100 03/06/20 03:00 104/43 03/06/20 02:37 109 24 100 03/06/20 02:30 119 21 103/42 (62) 87 03/06/20 02:00 118 21 109/40 (63) 88 03/06/20 02:00 23 Mechanical Ventilator 100 03/06/20 02:00 109/41 03/06/20 01:30 115 22 109/41 (63) 88 03/06/20 01:00 22 Mechanical Ventilator 100 03/06/20 01:00 108/41 03/06/20 01:00 113 21 108/41 (63) 89 03/06/20 00:30 108/41 03/06/20 00:30 112 20 108/41 (63) 89 03/06/20 00:15 102/38 03/06/20 00:00 100.0 112 20 95/40 (58) 90 03/06/20 00:00 Mechanical Ventilator 03/06/20 00:00 21 Mechanical Ventilator 100 03/06/20 00:00 95/40 03/05/20 23:30 111 21 110/42 (64) 89 03/05/20 23:15 111 20 101/41 (61) 89 03/05/20 23:00 111 20 100/40 (60) 89 03/05/20 23:00 24 Mechanical Ventilator 100 03/05/20 23:00 100/40 03/05/20 22:50 116 20 100 03/05/20 22:30 100.4 111 20 113/45 (67) 89 03/05/20 22:12 103/38 03/05/20 22:02 98.3 03/05/20 22:00 28 Mechanical Ventilator 100 03/05/20 22:00 126/47 03/05/20 22:00 108 22 103/38 (59) 86 03/05/20 21:30 109 23 123/51 (75) 89 03/05/20 21:21 25 Mechanical Ventilator 100 03/05/20 21:00 25 Mechanical Ventilator 100 03/05/20 21:00 116/57 03/05/20 21:00 105 20 109/46 (67) 91 03/05/20 20:30 106 20 114/44 (67) 92 03/05/20 20:00 106 03/05/20 20:00 98.3 109 20 122/48 (72) 94 03/05/20 20:00 23 Mechanical Ventilator 80 03/05/20 20:00 101/47 03/05/20 20:00 Mechanical Ventilator 03/05/20 20:00 100 03/05/20 19:30 107 24 130/47 (74) 88 03/05/20 19:20 108 20 100 03/05/20 19:00 21 Mechanical Ventilator 80 03/05/20 19:00 135/45 03/05/20 19:00 110 23 135/45 (75) 87 03/05/20 18:33 110 23 140/46 (77) 89 03/05/20 18:00 109 23 137/46 (76) 89 03/05/20 18:00 24 Mechanical Ventilator 80 03/05/20 18:00 137/46 03/05/20 17:45 109 23 148/47 (80) 87 03/05/20 17:30 106 24 147/45 (79) 90 03/05/20 17:15 98.8 105 24 144/49 (80) 91 03/05/20 17:00 106 24 150/46 (80) 91 03/05/20 17:00 22 Mechanical Ventilator 80 03/05/20 17:00 150/46 03/05/20 16:30 103 24 145/51 (82) 92 03/05/20 16:00 103 03/05/20 16:00 80 03/05/20 16:00 22 Mechanical Ventilator 80 03/05/20 16:00 107/39 03/05/20 16:00 95 21 107/39 (61) 97 03/05/20 16:00 Mechanical Ventilator 03/05/20 15:45 85 20 108/37 (60) 99 03/05/20 15:30 85 20 119/41 (67) 99 03/05/20 15:24 86 20 119/39 (65) 98 03/05/20 15:20 85 20 80 03/05/20 15:15 88 20 76/28 (44) 97 03/05/20 15:00 89 19 119/42 (67) 99 03/05/20 15:00 24 Mechanical Ventilator 80 03/05/20 15:00 119/42 03/05/20 14:46 99/38 03/05/20 14:45 86 22 100/39 (59) 98 03/05/20 14:30 86 21 99/38 (58) 98 03/05/20 14:00 89 21 89/37 (54) 96 03/05/20 14:00 22 Mechanical Ventilator 80 03/05/20 14:00 89/37 03/05/20 13:45 88 22 93/37 (55) 97 Intake and Output 03/05/20 03/06/20 19:00 07:00 Intake Total 1229.86 ml 1602.5 ml Output Total 545 ml 500 ml Balance 684.86 ml 1102.5 ml Free Water 80 ml IV Total 1109.86 ml 1402.5 ml Tube Feeding 120 ml 120 ml Output Urine Total 485 ml 500 ml Chest Tube Drainage Total 60 ml Laboratory Tests Test 03/06/20 03:30 White Blood Count 17.7 K/UL (4.8-10.8) #H Red Blood Count 3.26 M/UL (4.70-6.10) L Hemoglobin 10.1 G/DL (14.2-18.0) #L Hematocrit 29.9 % (42.0-52.0) #L Mean Corpuscular Volume 92 FL (80-99) Mean Corpuscular Hemoglobin 31.1 PG (27.0-31.0) H Mean Corpuscular Hemoglobin Concent 33.8 G/DL (32.0-36.0) Red Cell Distribution Width 15.2 % (11.6-14.8) H Platelet Count 43 K/UL (150-450) L Mean Platelet Volume 13.0 FL (6.5-10.1) H Neutrophils (%) (Auto) % (45.0-75.0) Lymphocytes (%) (Auto) % (20.0-45.0) Monocytes (%) (Auto) % (1.0-10.0) Eosinophils (%) (Auto) % (0.0-3.0) Basophils (%) (Auto) % (0.0-2.0) Differential Total Cells Counted 100 Neutrophils % (Manual) 87 % (45-75) H Lymphocytes % (Manual) 2 % (20-45) L Monocytes % (Manual) 2 % (1-10) Eosinophils % (Manual) 0 % (0-3) Basophils % (Manual) 0 % (0-2) Band Neutrophils 9 % (0-8) H Platelet Estimate Decreased L Platelet Morphology Normal Polychromasia 1+ Hypochromasia 1+ Anisocytosis 1+ Prothrombin Time 17.0 SEC (9.30-11.50) H Prothromb Time International Ratio 1.6 (0.9-1.1) H Activated Partial Thromboplast Time 33 SEC (23-33) Fibrinogen 466 mg/dL (200-400) H Fibrin Degradation Products, Quant Pending D-Dimer 10.40 mg/L FEU (0.00-0.49) H Sodium Level 123 MMOL/L (136-145) L Potassium Level 4.1 MMOL/L (3.5-5.1) Chloride Level 92 MMOL/L (98-107) L Carbon Dioxide Level 30 MMOL/L (21-32) Anion Gap 1 mmol/L (5-15) L Blood Urea Nitrogen 34 mg/dL (7-18) H Creatinine 1.2 MG/DL (0.55-1.30) Estimat Glomerular Filtration Rate 58.9 mL/min (>60) Glucose Level 126 MG/DL (74-106) H Calcium Level 7.1 MG/DL (8.5-10.1) L Ionized Calcium (Measured) Pending Phosphorus Level 2.4 MG/DL (2.5-4.9) L Magnesium Level 1.9 MG/DL (1.8-2.4) Random Vancomycin Level 19.5 ug/mL Height (Feet): 5 Height (Inches): 5.00 Weight (Pounds): 146 General Appearance: no apparent distress Cardiovascular: tachycardia Respiratory/Chest: no respiratory distress Maureen Craig NP March 06, 2020 13:43
[2020-03-06] MEDS ORDERED: Tubing IV Blood Pump IV ONE (14:47)
--- NOTE | 2020-03-06 17:19 | Surgery Progress Note ---
Surgery Progress Note Subjective Procedure Performed Left tube thoracostomy Additional Comments worsening leukocytosis acute transfused responded chest tube stable no leak no bleeding Objective Last 24 Hour Vital Signs Date Time Temp Pulse Resp B/P (MAP) Pulse Ox O2 Delivery O2 Flow Rate FiO2 03/06/20 16:00 113 03/06/20 16:00 99.7 112 22 135/71 (92) 97 03/06/20 16:00 22 Mechanical Ventilator 03/06/20 16:00 135/71 03/06/20 16:00 Mechanical Ventilator 03/06/20 16:00 100 03/06/20 15:34 110/47 03/06/20 15:30 109 21 128/55 (79) 98 03/06/20 15:15 103 20 113/51 (71) 99 03/06/20 15:00 20 Mechanical Ventilator 03/06/20 15:00 113/48 03/06/20 15:00 104 20 113/48 (69) 98 03/06/20 14:00 106 20 110/47 (68) 99 03/06/20 14:00 20 Mechanical Ventilator 03/06/20 14:00 110/47 03/06/20 13:30 109 20 115/47 (69) 99 03/06/20 13:12 111 22 131/55 (80) 99 03/06/20 13:00 109 22 83/40 (54) 99 03/06/20 13:00 22 Mechanical Ventilator 03/06/20 13:00 131/55 03/06/20 12:30 110 20 126/55 (78) 97 03/06/20 12:15 110 20 124/58 (80) 97 03/06/20 12:00 Mechanical Ventilator 03/06/20 12:00 109 03/06/20 12:00 21 Mechanical Ventilator 03/06/20 12:00 131/55 03/06/20 12:00 100 03/06/20 12:00 99.9 111 21 131/55 (80) 97 03/06/20 11:26 110 20 100 03/06/20 11:03 110 20 126/56 (79) 98 03/06/20 11:00 20 Mechanical Ventilator 03/06/20 11:00 126/56 03/06/20 10:45 109 113/48 03/06/20 10:00 109 20 113/48 (69) 100 03/06/20 10:00 20 Mechanical Ventilator 03/06/20 10:00 113/48 03/06/20 09:37 104/48 03/06/20 09:00 21 Mechanical Ventilator 03/06/20 09:00 104/58 03/06/20 09:00 112 21 104/48 (66) 98 03/06/20 08:30 114 22 123/54 (77) 93 03/06/20 08:15 100.5 113 23 126/54 (78) 92 03/06/20 08:00 113 21 134/56 (82) 92 03/06/20 08:00 21 Mechanical Ventilator 03/06/20 08:00 134/56 03/06/20 08:00 100 03/06/20 08:00 110 03/06/20 08:00 Mechanical Ventilator 03/06/20 07:39 109 20 100 03/06/20 07:00 110 21 102/59 (73) 94 03/06/20 07:00 24 Mechanical Ventilator 80 03/06/20 07:00 101/68 03/06/20 06:30 113 20 99/52 (68) 96 03/06/20 06:30 113 20 03/06/20 06:00 24 Mechanical Ventilator 100 03/06/20 06:00 90/40 03/06/20 06:00 114 21 90/40 (57) 97 03/06/20 05:55 101.6 03/06/20 05:30 119 22 99/41 (60) 98 03/06/20 05:00 118 22 123/47 (72) 93 03/06/20 05:00 24 Mechanical Ventilator 100 03/06/20 05:00 123/47 03/06/20 04:44 102 27 100 03/06/20 04:30 118 24 118/50 (72) 92 03/06/20 04:19 92/38 03/06/20 04:00 Mechanical Ventilator 03/06/20 04:00 100 03/06/20 04:00 119 23 121/49 (73) 90 03/06/20 04:00 22 Mechanical Ventilator 100 03/06/20 04:00 121/49 03/06/20 04:00 114 03/06/20 03:30 116 21 108/45 (66) 91 03/06/20 03:00 118 21 104/43 (63) 88 03/06/20 03:00 21 Mechanical Ventilator 100 03/06/20 03:00 104/43 03/06/20 02:37 109 24 100 03/06/20 02:30 119 21 103/42 (62) 87 03/06/20 02:00 118 21 109/40 (63) 88 03/06/20 02:00 23 Mechanical Ventilator 100 03/06/20 02:00 109/41 03/06/20 01:30 115 22 109/41 (63) 88 03/06/20 01:00 22 Mechanical Ventilator 100 03/06/20 01:00 108/41 03/06/20 01:00 113 21 108/41 (63) 89 03/06/20 00:30 108/41 03/06/20 00:30 112 20 108/41 (63) 89 03/06/20 00:15 102/38 03/06/20 00:00 100.0 112 20 95/40 (58) 90 03/06/20 00:00 Mechanical Ventilator 03/06/20 00:00 21 Mechanical Ventilator 100 03/06/20 00:00 95/40 03/05/20 23:30 111 21 110/42 (64) 89 03/05/20 23:15 111 20 101/41 (61) 89 03/05/20 23:00 111 20 100/40 (60) 89 03/05/20 23:00 24 Mechanical Ventilator 100 03/05/20 23:00 100/40 03/05/20 22:50 116 20 100 03/05/20 22:30 100.4 111 20 113/45 (67) 89 03/05/20 22:12 103/38 03/05/20 22:02 98.3 03/05/20 22:00 28 Mechanical Ventilator 100 03/05/20 22:00 126/47 03/05/20 22:00 108 22 103/38 (59) 86 03/05/20 21:30 109 23 123/51 (75) 89 03/05/20 21:21 25 Mechanical Ventilator 100 03/05/20 21:00 25 Mechanical Ventilator 100 03/05/20 21:00 116/57 03/05/20 21:00 105 20 109/46 (67) 91 03/05/20 20:30 106 20 114/44 (67) 92 03/05/20 20:00 106 03/05/20 20:00 98.3 109 20 122/48 (72) 94 03/05/20 20:00 23 Mechanical Ventilator 80 03/05/20 20:00 101/47 03/05/20 20:00 Mechanical Ventilator 03/05/20 20:00 100 03/05/20 19:30 107 24 130/47 (74) 88 03/05/20 19:20 108 20 100 03/05/20 19:00 21 Mechanical Ventilator 80 03/05/20 19:00 135/45 03/05/20 19:00 110 23 135/45 (75) 87 03/05/20 18:33 110 23 140/46 (77) 89 03/05/20 18:00 109 23 137/46 (76) 89 03/05/20 18:00 24 Mechanical Ventilator 80 03/05/20 18:00 137/46 03/05/20 17:45 109 23 148/47 (80) 87 03/05/20 17:30 106 24 147/45 (79) 90 I&O Intake and Output 03/05/20 03/06/20 19:00 07:00 Intake Total 1229.86 ml 1602.5 ml Output Total 545 ml 500 ml Balance 684.86 ml 1102.5 ml Free Water 80 ml IV Total 1109.86 ml 1402.5 ml Tube Feeding 120 ml 120 ml Output Urine Total 485 ml 500 ml Chest Tube Drainage Total 60 ml Dressing: dry Wound: other Drains: other Cardiovascular: RSR Respiratory: decreased breath sounds Abdomen: soft, non-tender, present bowel sounds Extremities: no cyanosis Laboratory Tests Test 03/06/20 03:30 03/06/20 12:05 03/06/20 15:15 White Blood Count 17.7 K/UL (4.8-10.8) #H Red Blood Count 3.26 M/UL (4.70-6.10) L Hemoglobin 10.1 G/DL (14.2-18.0) #L Hematocrit 29.9 % (42.0-52.0) #L Mean Corpuscular Volume 92 FL (80-99) Mean Corpuscular Hemoglobin 31.1 PG (27.0-31.0) H Mean Corpuscular Hemoglobin Concent 33.8 G/DL (32.0-36.0) Red Cell Distribution Width 15.2 % (11.6-14.8) H Platelet Count 43 K/UL (150-450) L Mean Platelet Volume 13.0 FL (6.5-10.1) H Neutrophils (%) (Auto) % (45.0-75.0) Lymphocytes (%) (Auto) % (20.0-45.0) Monocytes (%) (Auto) % (1.0-10.0) Eosinophils (%) (Auto) % (0.0-3.0) Basophils (%) (Auto) % (0.0-2.0) Differential Total Cells Counted 100 Neutrophils % (Manual) 87 % (45-75) H Lymphocytes % (Manual) 2 % (20-45) L Monocytes % (Manual) 2 % (1-10) Eosinophils % (Manual) 0 % (0-3) Basophils % (Manual) 0 % (0-2) Band Neutrophils 9 % (0-8) H Platelet Estimate Decreased L Platelet Morphology Normal Polychromasia 1+ Hypochromasia 1+ Anisocytosis 1+ Prothrombin Time 17.0 SEC (9.30-11.50) H Prothromb Time International Ratio 1.6 (0.9-1.1) H Activated Partial Thromboplast Time 33 SEC (23-33) Fibrinogen 466 mg/dL (200-400) H Fibrin Degradation Products, Quant Pending D-Dimer 10.40 mg/L FEU (0.00-0.49) H Sodium Level 123 MMOL/L (136-145) L Potassium Level 4.1 MMOL/L (3.5-5.1) Chloride Level 92 MMOL/L (98-107) L Carbon Dioxide Level 30 MMOL/L (21-32) Anion Gap 1 mmol/L (5-15) L Blood Urea Nitrogen 34 mg/dL (7-18) H Creatinine 1.2 MG/DL (0.55-1.30) Estimat Glomerular Filtration Rate 58.9 mL/min (>60) Glucose Level 126 MG/DL (74-106) H Calcium Level 7.1 MG/DL (8.5-10.1) L Phosphorus Level 2.4 MG/DL (2.5-4.9) L Magnesium Level 1.9 MG/DL (1.8-2.4) Random Vancomycin Level 19.5 ug/mL Urine Osmolality 311 mOsm/kg (429-449) L Urine Random Sodium < 20 mmol/L (20-110) L Ionized Calcium (Measured) 0.95 mmol/L (1.10-1.35) L Plan Problems: (1) Pneumothorax Assessment & Plan: Patient with bilateral pneumothoraces right slightly larger than left but both are very small. On the left side there is significant amount of subcutaneous emphysema extensively more than anything on the right side. Given these findings and discussion with the patient's utility person and clinical decision making currently patient is extremely ill DIC thrombocytopenia critically ill and would only recommend placing 1 chest tube at this time given how high risk he is specially with COVID status. Given the x -ray findings and the extensive subtenons emphysema recommend placing a left- sided chest tube at this time with considerations for right side if necessary. Please see procedure note. Will follow and monitor 2. A.m. chest x-ray. Thank you participate in patient' s care AM CXR may need right chest tube chest tube to water seal Is a tiny sliver of a left apical pneumothorax, apex of the lung approximately 3 mm from the chest wall. There is a slightly larger but still small right apical pneumothorax, with the apex of the lung approximately 14 mm from the edge of the chest wall. There is extensive subcutaneous emphysema, particularly in the left anterior chest wall, but also seen in the bilateral supraclavicular fossae. The inferior right heart border is very well-defined. Uncertain as whether this represents a component of pneumomediastinum or a small medial pneumothorax. Stable tube and line positions, satisfactory. Bilateral infiltrates appear slightly improved as compared to the previous study. Impression: Since 02/26/2020, interim development of small bilateral pneumothoraces, right greater than left, and extensive subcutaneous emphysema. There may also be minimal pneumomediastinum. Bilateral infiltrates have improved somewhat in the interim. (2) Thrombocytopenia (3) Elevated LFTs (4) Diabetes mellitus (5) DVT (deep venous thrombosis) (6) History of hypertension (7) Cerebrovascular accident (CVA) (8) Alzheimer's dementia (9) Debility (10) Respiratory distress (11) Hypotension (12) Respiratory failure with hypoxia (13) Sepsis (14) Suspected COVID-19 virus infection [employer] March 06, 2020 17:19
[2020-03-06] MEDS ORDERED: Vancomycin 750mg/NS 275ml IVPB ONE ×2 (18:00)
--- NOTE | 2020-03-06 18:04 | Infectious Diseases Prog Note ---
Assessment/Plan Assessment/Plan ASSESSMENT AND PLAN: 1. covid-19 virus infection/pna +, rule out bacterial pna, sepsis, shock, leukocytosis, fevers, vent, pressors, mrsa colonization bc - one bottle - diphtheroids - likely contaminant pneumothorax/subcutaneous emphysema - chest tube fungemia risk, leukocytosis again, febrile - change abx to diflucan, cefepime, flagyl and vancomycin - recheck cultures - s/p hydroxychloroquine - f/u labs and chest x-ray - condition - critical - icu care 2. Respiratory failure, on vent. 3. ICU care. 4. Pressors. 5. Low potassium or hypokalemia. 6. Diabetes. 7. Hypertension. 8. Alzheimer's. 9. CVA. 10. TIA. 11. DVT. 12. Dementia. 13. Aspiration risk. 14. No known drug allergies. 15. Social history negative. 16. Family history is noncontributory. 17. MAR was noted. 18. Case discussed with RN. 19. Poor prognosis. 20. Skin care protocol. 21. Case discussed with Dr. Nunez. Subjective Constitutional: Reports: fever, other - on vent, on pressors HEENT: Reports: congestion Respiratory: Reports: shortness of breath Gastrointestinal/Abdominal: Reports: other - no diarrhea ; Denies: nausea, vomiting, diarrhea Psychiatric: Reports: other - NA Skin: Denies: rash Hematologic: Denies: bleeding Musculoskeletal: Reports: other - NA Allergies: Coded Allergies: No Known Allergies (Unverified , 01/19/19) Objective Vital Signs Last 24 Hour Vital Signs Date Time Temp Pulse Resp B/P (MAP) Pulse Ox O2 Delivery O2 Flow Rate FiO2 03/06/20 17:30 112 21 133/53 (79) 98 03/06/20 17:00 21 Mechanical Ventilator 03/06/20 17:00 136/50 03/06/20 17:00 115 21 136/50 (78) 98 03/06/20 16:00 113 03/06/20 16:00 99.7 112 22 135/71 (92) 97 03/06/20 16:00 22 Mechanical Ventilator 03/06/20 16:00 135/71 03/06/20 16:00 Mechanical Ventilator 03/06/20 16:00 100 03/06/20 15:47 113 22 100 5/10/20 15:34 110/47 03/06/20 15:30 109 21 128/55 (79) 98 03/06/20 15:15 103 20 113/51 (71) 99 03/06/20 15:00 20 Mechanical Ventilator 03/06/20 15:00 113/48 03/06/20 15:00 104 20 113/48 (69) 98 03/06/20 14:00 106 20 110/47 (68) 99 03/06/20 14:00 20 Mechanical Ventilator 03/06/20 14:00 110/47 03/06/20 13:30 109 20 115/47 (69) 99 03/06/20 13:12 111 22 131/55 (80) 99 03/06/20 13:00 109 22 83/40 (54) 99 03/06/20 13:00 22 Mechanical Ventilator 03/06/20 13:00 131/55 03/06/20 12:30 110 20 126/55 (78) 97 03/06/20 12:15 110 20 124/58 (80) 97 03/06/20 12:00 Mechanical Ventilator 03/06/20 12:00 109 03/06/20 12:00 21 Mechanical Ventilator 03/06/20 12:00 131/55 03/06/20 12:00 100 03/06/20 12:00 99.9 111 21 131/55 (80) 97 03/06/20 11:26 110 20 100 03/06/20 11:03 110 20 126/56 (79) 98 03/06/20 11:00 20 Mechanical Ventilator 03/06/20 11:00 126/56 03/06/20 10:45 109 113/48 03/06/20 10:00 109 20 113/48 (69) 100 03/06/20 10:00 20 Mechanical Ventilator 03/06/20 10:00 113/48 03/06/20 09:37 104/48 03/06/20 09:00 21 Mechanical Ventilator 03/06/20 09:00 104/58 03/06/20 09:00 112 21 104/48 (66) 98 03/06/20 08:30 114 22 123/54 (77) 93 03/06/20 08:15 100.5 113 23 126/54 (78) 92 03/06/20 08:00 113 21 134/56 (82) 92 03/06/20 08:00 21 Mechanical Ventilator 03/06/20 08:00 134/56 03/06/20 08:00 100 03/06/20 08:00 110 03/06/20 08:00 Mechanical Ventilator 03/06/20 07:39 109 20 100 03/06/20 07:00 110 21 102/59 (73) 94 03/06/20 07:00 24 Mechanical Ventilator 80 03/06/20 07:00 101/68 03/06/20 06:30 113 20 99/52 (68) 96 03/06/20 06:30 113 20 03/06/20 06:00 24 Mechanical Ventilator 100 03/06/20 06:00 90/40 03/06/20 06:00 114 21 90/40 (57) 97 03/06/20 05:55 101.6 03/06/20 05:30 119 22 99/41 (60) 98 03/06/20 05:00 118 22 123/47 (72) 93 03/06/20 05:00 24 Mechanical Ventilator 100 03/06/20 05:00 123/47 03/06/20 04:44 102 27 100 03/06/20 04:30 118 24 118/50 (72) 92 03/06/20 04:19 92/38 03/06/20 04:00 Mechanical Ventilator 03/06/20 04:00 100 03/06/20 04:00 119 23 121/49 (73) 90 03/06/20 04:00 22 Mechanical Ventilator 100 03/06/20 04:00 121/49 03/06/20 04:00 114 03/06/20 03:30 116 21 108/45 (66) 91 03/06/20 03:00 118 21 104/43 (63) 88 03/06/20 03:00 21 Mechanical Ventilator 100 03/06/20 03:00 104/43 03/06/20 02:37 109 24 100 03/06/20 02:30 119 21 103/42 (62) 87 03/06/20 02:00 118 21 109/40 (63) 88 03/06/20 02:00 23 Mechanical Ventilator 100 03/06/20 02:00 109/41 03/06/20 01:30 115 22 109/41 (63) 88 03/06/20 01:00 22 Mechanical Ventilator 100 03/06/20 01:00 108/41 5/10/20 01:00 113 21 108/41 (63) 89 03/06/20 00:30 108/41 03/06/20 00:30 112 20 108/41 (63) 89 03/06/20 00:15 102/38 03/06/20 00:00 100.0 112 20 95/40 (58) 90 03/06/20 00:00 Mechanical Ventilator 03/06/20 00:00 21 Mechanical Ventilator 100 03/06/20 00:00 95/40 03/05/20 23:30 111 21 110/42 (64) 89 03/05/20 23:15 111 20 101/41 (61) 89 03/05/20 23:00 111 20 100/40 (60) 89 03/05/20 23:00 24 Mechanical Ventilator 100 03/05/20 23:00 100/40 03/05/20 22:50 116 20 100 03/05/20 22:30 100.4 111 20 113/45 (67) 89 03/05/20 22:12 103/38 03/05/20 22:02 98.3 03/05/20 22:00 28 Mechanical Ventilator 100 03/05/20 22:00 126/47 03/05/20 22:00 108 22 103/38 (59) 86 03/05/20 21:30 109 23 123/51 (75) 89 03/05/20 21:21 25 Mechanical Ventilator 100 03/05/20 21:00 25 Mechanical Ventilator 100 03/05/20 21:00 116/57 03/05/20 21:00 105 20 109/46 (67) 91 03/05/20 20:30 106 20 114/44 (67) 92 03/05/20 20:00 106 03/05/20 20:00 98.3 109 20 122/48 (72) 94 03/05/20 20:00 23 Mechanical Ventilator 80 03/05/20 20:00 101/47 03/05/20 20:00 Mechanical Ventilator 03/05/20 20:00 100 03/05/20 19:30 107 24 130/47 (74) 88 03/05/20 19:20 108 20 100 03/05/20 19:00 21 Mechanical Ventilator 80 03/05/20 19:00 135/45 03/05/20 19:00 110 23 135/45 (75) 87 03/05/20 18:33 110 23 140/46 (77) 89 03/05/20 18:00 109 23 137/46 (76) 89 03/05/20 18:00 24 Mechanical Ventilator 80 03/05/20 18:00 137/46 Height (Feet): 5 Height (Inches): 5.00 Weight (Pounds): 146 General Appearance: other - on vent and pressors HEENT: normocephalic, atraumatic, anicteric Respiratory/Chest: crackles/rales, rhonchi - bilaterally Cardiovascular: normal rate, regular rhythm, no gallop/murmur, no JVD Abdomen: normal bowel sounds, soft, non tender, no organomegaly, non distended Genitourinary: other - + rush Extremities: no cyanosis Skin: no rash Neurologic/Psychiatric: motor weakness, other - lethargic, weak Lymphatic: no neck adenopathy Musculoskeletal: no effusion Objective Chest x-ray - 02/23/30 - Procedure: XRAY Chest 1v Indication: Respiratory failure shortness of breath Technique: XRAY Chest 1v Comparison: 02/22/2020 Findings: Heart borders are obscured. Interstitial and extensive predominantly perihilar airspace opacities are noted. There is slight decrease in opacification in the right midlung but there is worsening of disease in the left lung. Is been development of a small layering left pleural effusion. Endotracheal tube tip approximately 1.2 cm above the holly. Enteric tube tip in the distal stomach. Osseous structures are stable. There are atherosclerotic calcifications. IMPRESSION: Overall worsening of aeration with increasing airspace disease in the left lung and development of a small layering left pleural effusion. Persistent patchy perihilar opacities in the right lung. Endotracheal and enteric tubes remain in place. Tip of the ET tube approximately 1.2 cm above the holly. Consider slight retraction (1-2 cms). Chest x-ray - 02/26/20 - Procedure: XRAY Chest 1v Indication: Reason For Exam: ABN CHST Technique: One view of the chest Comparison: 02/24/2020 Findings: Endotracheal tube demonstrates slightly improved position, now roughly 3 cm above the holly. There is increased atelectasis at the right lung base. Consolidation at the right lung base appears unchanged, but there does appear to be decreased involvement of the upper lobe. There is still extensive consolidation at the left lung base, but aeration appears equivocally slightly improved, and there is less upper lobe involvement. Orogastric tube again demonstrated. Impression: Overall slightly improved bilateral infiltrates, over 2 days Improved endotracheal tube position Chest x-ray - 03/02/20 - Procedure: XRAY Chest 1v Indication: Shortness of breath Technique: One view of the chest Comparison: 03/01/2020 Findings: Left chest tube again demonstrated. No definite pneumothorax although overlying emphysema makes evaluation difficult. Previously demonstrated small right apical pneumothorax is not clearly evident on this exam. Stable satisfactory positions of endotracheal tube, orogastric tube, right jugular central venous catheter. Extensive bilateral subcutaneous emphysema is unchanged. Extensive bilateral right greater than left infiltrates are unchanged. Impression: Previously demonstrated small bilateral apical pneumothoraces are no longer evident. Otherwise essentially unchanged since previous day's exam Chest x-ray - 03/03/20 - Procedure: XRAY Chest 1v Indication: Dyspnea Technique: One view of the chest Comparison: 03/02/2020 Findings: Endotracheal tube, orogastric tube, left chest tube, right jugular central venous catheter remain in stable satisfactory positions. Small left apical pneumothorax was not visible on the previous day but appears similar to the 2019 exam. No definite left pneumothorax demonstrated. Extensive subcutaneous emphysema is unchanged. Extensive bilateral infiltrates are unchanged. Impression: Small right apical pneumothorax, not visible on previous day's exam but unchanged from 03/01/2020 Otherwise stable findings as described Chest x-ray - 03/06/20 - IMPRESSION: 1. Endotracheal tube terminates in the region of the mid thoracic trachea. Enteric tube courses past the diaphragm and out of the field of view. Right internal jugular central venous catheter terminates in the region of the SVC. Left-sided chest tube. 2. No definite pneumothorax identified, but evaluation is limited by artifact from prominent overlying subcutaneous emphysema. 3. Patchy opacities throughout the lungs, worst in the left perihilar region and lung bases. 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 Complete Laboratory Tests Test 5/10/20 03:30 03/06/20 12:05 03/06/20 15:15 White Blood Count 17.7 K/UL (4.8-10.8) #H Red Blood Count 3.26 M/UL (4.70-6.10) L Hemoglobin 10.1 G/DL (14.2-18.0) #L Hematocrit 29.9 % (42.0-52.0) #L Mean Corpuscular Volume 92 FL (80-99) Mean Corpuscular Hemoglobin 31.1 PG (27.0-31.0) H Mean Corpuscular Hemoglobin Concent 33.8 G/DL (32.0-36.0) Red Cell Distribution Width 15.2 % (11.6-14.8) H Platelet Count 43 K/UL (150-450) L Mean Platelet Volume 13.0 FL (6.5-10.1) H Neutrophils (%) (Auto) % (45.0-75.0) Lymphocytes (%) (Auto) % (20.0-45.0) Monocytes (%) (Auto) % (1.0-10.0) Eosinophils (%) (Auto) % (0.0-3.0) Basophils (%) (Auto) % (0.0-2.0) Differential Total Cells Counted 100 Neutrophils % (Manual) 87 % (45-75) H Lymphocytes % (Manual) 2 % (20-45) L Monocytes % (Manual) 2 % (1-10) Eosinophils % (Manual) 0 % (0-3) Basophils % (Manual) 0 % (0-2) Band Neutrophils 9 % (0-8) H Platelet Estimate Decreased L Platelet Morphology Normal Polychromasia 1+ Hypochromasia 1+ Anisocytosis 1+ Prothrombin Time 17.0 SEC (9.30-11.50) H Prothromb Time International Ratio 1.6 (0.9-1.1) H Activated Partial Thromboplast Time 33 SEC (23-33) Fibrinogen 466 mg/dL (200-400) H Fibrin Degradation Products, Quant Pending D-Dimer 10.40 mg/L FEU (0.00-0.49) H Sodium Level 123 MMOL/L (136-145) L Potassium Level 4.1 MMOL/L (3.5-5.1) Chloride Level 92 MMOL/L (98-107) L Carbon Dioxide Level 30 MMOL/L (21-32) Anion Gap 1 mmol/L (5-15) L Blood Urea Nitrogen 34 mg/dL (7-18) H Creatinine 1.2 MG/DL (0.55-1.30) Estimat Glomerular Filtration Rate 58.9 mL/min (>60) Glucose Level 126 MG/DL (74-106) H Calcium Level 7.1 MG/DL (8.5-10.1) L Phosphorus Level 2.4 MG/DL (2.5-4.9) L Magnesium Level 1.9 MG/DL (1.8-2.4) Random Vancomycin Level 19.5 ug/mL Urine Osmolality 311 mOsm/kg (429-449) L Urine Random Sodium < 20 mmol/L (20-110) L Ionized Calcium (Measured) 0.95 mmol/L (1.10-1.35) L Current Medications Medications (Trade) Dose Ordered Sig/Cirilo Route PRN Reason Start Time Stop Time Status Last Admin Dose Admin Acetaminophen (Tylenol) 650 mg Q4H PRN ORAL Fever 02/22/20 14:15 03/23/20 14:14 02/28/20 17:52 Acetaminophen (Tylenol) 650 mg Q4H PRN ORAL Mild Pain (Pain Scale 1-3) 02/22/20 14:15 03/23/20 14:14 03/03/20 17:31 Acetaminophen (Tylenol) 650 mg Q4H PRN RECTAL Mild Pain (Pain Scale 1-3) 02/22/20 14:15 03/23/20 14:14 02/22/20 21:28 Acetaminophen (Tylenol) 650 mg Q4H PRN RECTAL FEVER 02/22/20 14:15 03/23/20 14:14 03/06/20 04:20 Chlorhexidine Gluconate (Maira-Hex 2%) 1 applic DAILY@1999 TOPIC 02/23/20 20:00 05/23/20 19:59 03/05/20 20:06 Dextrose (Dextrose 50%) 25 ml Q30M PRN IV Hypoglycemia 02/23/20 09:00 05/23/20 08:59 Dextrose (Dextrose 50%) 50 ml Q30M PRN IV Hypoglycemia 02/23/20 09:00 05/23/20 08:59 Diphenhydramine HCl (Benadryl) 25 mg Q6H PRN ORAL Itching/Pruritis 02/22/20 14:15 03/23/20 14:14 02/26/20 01:34 Fentanyl Citrate 2500 mcg/Sodium Chloride 250 ml @ 0 mls/hr Q24H IV 03/01/20 19:45 03/08/20 19:44 03/06/20 10:00 Insulin Aspart (NovoLOG) Q6HR SUBQ 02/28/20 18:00 05/28/20 17:59 03/06/20 12:25 Metoclopramide HCl (Reglan) 5 mg Q6HR IVP 03/01/20 12:00 03/31/20 11:59 03/06/20 16:57 Midazolam HCl 100 ml @ 0 mls/hr Q24H IV 02/26/20 15:06 05/26/20 15:05 02/26/20 15:48 Norepinephrine Bitartrate 8 mg/ Dextrose 500 ml @ 0 mls/hr Q24H IV 02/23/20 19:01 03/24/20 19:00 03/06/20 15:34 Pantoprazole (Protonix) 40 mg DAILY IVP 02/23/20 09:30 03/24/20 09:29 03/06/20 08:10 Phenylephrine HCl 50 mg/Dextrose 250 ml @ 6 mls/hr Q24H IV 02/29/20 10:45 03/30/20 10:44 03/04/20 04:43 Piperacillin Sod/ Tazobactam Sod 3.375 gm/Dextrose 110 ml @ 27.5 mls/hr Q8H IVPB 03/01/20 01:00 03/08/20 00:59 03/06/20 16:57 Vancomycin HCl (Vanco rx to dose) 1 ea DAILY PRN MISC Per rx protocol 02/22/20 14:30 03/23/20 14:29 Vancomycin HCl 750 mg/Sodium Chloride 275 ml @ 183.333 mls/hr ONCE ONCE IVPB 03/06/20 18:00 03/06/20 19:29 03/06/20 16:57 Anselmo Estrada MD March 06, 2020 18:04
[2020-03-06] MEDS: Dyna-Hex 2% Top Sol 2oz TOPIC SCH (20:26)
[2020-03-06] MEDS: metroNIDAZOLE 500mg tab ORAL SCH (21:59)
--- NOTE | 2020-03-06 23:27 | Cardiac Electrophysiology PN ---
Assessment/Plan Assessment/Plan 1. Respiratory failure due to COVID pneumonia and CHF as BNP is more than 2000. Echo EF 50%. His white count however is only 7.2 with lymphopenia On the Vent 80% Fio2, PEEP 5 2. Septic shock likely due to pneumonia and dehydration. On Levo 24 mcg and Abx. 3. CXR, Since 02/26/2020, interim development of small bilateral pneumothoraces, right greater than left, and extensive subcutaneous emphysema. There may also be minimal pneumomediastinum. S/P Left chest tube 03/02/20 4. Hypernatremia, resolved with IV fluids. 5. Dehydration. 6. Severe anemia s/p [address] Sales Subjective Subjective In ICU on Levo 24 mcg on the vent with Fio2 80% and PEEP 5. EF 50%. Covid PCR is positive. S/P Left chest tube placement 03/02/[address] Sales and draining to water seal Had 2 units of PRBC Objective Last 24 Hour Vital Signs Date Time Temp Pulse Resp B/P (MAP) Pulse Ox O2 Delivery O2 Flow Rate FiO2 03/06/20 22:30 101 23 138/56 (83) 100 03/06/20 22:10 140/61 03/06/20 22:00 20 Mechanical Ventilator 100 03/06/20 22:00 99 22 140/61 (87) 100 03/06/20 21:30 140/60 03/06/20 21:30 103 20 142/60 (87) 99 03/06/20 21:00 106 22 142/55 (84) 99 03/06/20 21:00 24 Mechanical Ventilator 100 03/06/20 21:00 142/55 03/06/20 20:30 98.6 108 23 141/62 (88) 98 03/06/20 20:00 100 03/06/20 20:00 109 23 140/61 (87) 98 03/06/20 20:00 23 Mechanical Ventilator 100 03/06/20 20:00 140/61 03/06/20 20:00 107 03/06/20 20:00 Mechanical Ventilator 03/06/20 19:30 109 22 142/58 (86) 98 03/06/20 19:27 110 20 100 03/06/20 19:00 22 Mechanical Ventilator 03/06/20 19:00 141/57 03/06/20 19:00 107 21 141/57 (85) 98 03/06/20 18:00 112 20 132/58 (82) 98 03/06/20 17:30 112 21 133/53 (79) 98 03/06/20 17:00 21 Mechanical Ventilator 03/06/20 17:00 136/50 03/06/20 17:00 115 21 136/50 (78) 98 03/06/20 16:30 115 24 136/56 (82) 98 03/06/20 16:00 113 03/06/20 16:00 99.7 112 22 135/71 (92) 97 03/06/20 16:00 22 Mechanical Ventilator 03/06/20 16:00 135/71 03/06/20 16:00 Mechanical Ventilator 03/06/20 16:00 100 03/06/20 15:47 113 22 100 03/06/20 15:34 110/47 03/06/20 15:30 109 21 128/55 (79) 98 03/06/20 15:15 103 20 113/51 (71) 99 03/06/20 15:00 20 Mechanical Ventilator 03/06/20 15:00 113/48 03/06/20 15:00 104 20 113/48 (69) 98 03/06/20 14:00 106 20 110/47 (68) 99 03/06/20 14:00 20 Mechanical Ventilator 03/06/20 14:00 110/47 03/06/20 13:30 109 20 115/47 (69) 99 03/06/20 13:12 111 22 131/55 (80) 99 03/06/20 13:00 109 22 83/40 (54) 99 03/06/20 13:00 22 Mechanical Ventilator 03/06/20 13:00 131/55 03/06/20 12:30 110 20 126/55 (78) 97 03/06/20 12:15 110 20 124/58 (80) 97 03/06/20 12:00 Mechanical Ventilator 03/06/20 12:00 109 03/06/20 12:00 21 Mechanical Ventilator 03/06/20 12:00 131/55 03/06/20 12:00 100 03/06/20 12:00 99.9 111 21 131/55 (80) 97 03/06/20 11:26 110 20 100 03/06/20 11:03 110 20 126/56 (79) 98 03/06/20 11:00 20 Mechanical Ventilator 03/06/20 11:00 126/56 03/06/20 10:45 109 113/48 03/06/20 10:00 109 20 113/48 (69) 100 03/06/20 10:00 20 Mechanical Ventilator 03/06/20 10:00 113/48 03/06/20 09:37 104/48 03/06/20 09:00 21 Mechanical Ventilator 03/06/20 09:00 104/58 03/06/20 09:00 112 21 104/48 (66) 98 03/06/20 08:30 114 22 123/54 (77) 93 03/06/20 08:15 100.5 113 23 126/54 (78) 92 03/06/20 08:00 113 21 134/56 (82) 92 03/06/20 08:00 21 Mechanical Ventilator 03/06/20 08:00 134/56 03/06/20 08:00 100 03/06/20 08:00 110 03/06/20 08:00 Mechanical Ventilator 03/06/20 07:39 109 20 100 03/06/20 07:00 110 21 102/59 (73) 94 03/06/20 07:00 24 Mechanical Ventilator 80 03/06/20 07:00 101/68 03/06/20 06:30 113 20 99/52 (68) 96 03/06/20 06:30 113 20 03/06/20 06:00 24 Mechanical Ventilator 100 03/06/20 06:00 90/40 03/06/20 06:00 114 21 90/40 (57) 97 03/06/20 05:55 101.6 03/06/20 05:30 119 22 99/41 (60) 98 03/06/20 05:00 118 22 123/47 (72) 93 03/06/20 05:00 24 Mechanical Ventilator 100 03/06/20 05:00 123/47 03/06/20 04:44 102 27 100 03/06/20 04:30 118 24 118/50 (72) 92 03/06/20 04:19 92/38 03/06/20 04:00 Mechanical Ventilator 03/06/20 04:00 100 03/06/20 04:00 119 23 121/49 (73) 90 03/06/20 04:00 22 Mechanical Ventilator 100 03/06/20 04:00 121/49 03/06/20 04:00 114 03/06/20 03:30 116 21 108/45 (66) 91 03/06/20 03:00 118 21 104/43 (63) 88 03/06/20 03:00 21 Mechanical Ventilator 100 03/06/20 03:00 104/43 03/06/20 02:37 109 24 100 03/06/20 02:30 119 21 103/42 (62) 87 03/06/20 02:00 118 21 109/40 (63) 88 03/06/20 02:00 23 Mechanical Ventilator 100 03/06/20 02:00 109/41 03/06/20 01:30 115 22 109/41 (63) 88 03/06/20 01:00 22 Mechanical Ventilator 100 03/06/20 01:00 108/41 03/06/20 01:00 113 21 108/41 (63) 89 03/06/20 00:30 108/41 03/06/20 00:30 112 20 108/41 (63) 89 03/06/20 00:15 102/38 03/06/20 00:00 100.0 112 20 95/40 (58) 90 03/06/20 00:00 Mechanical Ventilator 03/06/20 00:00 21 Mechanical Ventilator 100 03/06/20 00:00 95/40 03/05/20 23:30 111 21 110/42 (64) 89 Intake and Output 03/05/20 03/06/20 19:00 07:00 Intake Total 1229.86 ml 1602.5 ml Output Total 545 ml 500 ml Balance 684.86 ml 1102.5 ml Free Water 80 ml IV Total 1109.86 ml 1402.5 ml Tube Feeding 120 ml 120 ml Output Urine Total 485 ml 500 ml Chest Tube Drainage Total 60 ml Laboratory Tests Test 03/06/20 03:30 03/06/20 12:05 03/06/20 15:15 White Blood Count 17.7 K/UL (4.8-10.8) #H Red Blood Count 3.26 M/UL (4.70-6.10) L Hemoglobin 10.1 G/DL (14.2-18.0) #L Hematocrit 29.9 % (42.0-52.0) #L Mean Corpuscular Volume 92 FL (80-99) Mean Corpuscular Hemoglobin 31.1 PG (27.0-31.0) H Mean Corpuscular Hemoglobin Concent 33.8 G/DL (32.0-36.0) Red Cell Distribution Width 15.2 % (11.6-14.8) H Platelet Count 43 K/UL (150-450) L Mean Platelet Volume 13.0 FL (6.5-10.1) H Neutrophils (%) (Auto) % (45.0-75.0) Lymphocytes (%) (Auto) % (20.0-45.0) Monocytes (%) (Auto) % (1.0-10.0) Eosinophils (%) (Auto) % (0.0-3.0) Basophils (%) (Auto) % (0.0-2.0) Differential Total Cells Counted 100 Neutrophils % (Manual) 87 % (45-75) H Lymphocytes % (Manual) 2 % (20-45) L Monocytes % (Manual) 2 % (1-10) Eosinophils % (Manual) 0 % (0-3) Basophils % (Manual) 0 % (0-2) Band Neutrophils 9 % (0-8) H Platelet Estimate Decreased L Platelet Morphology Normal Polychromasia 1+ Hypochromasia 1+ Anisocytosis 1+ Prothrombin Time 17.0 SEC (9.30-11.50) H Prothromb Time International Ratio 1.6 (0.9-1.1) H Activated Partial Thromboplast Time 33 SEC (23-33) Fibrinogen 466 mg/dL (200-400) H Fibrin Degradation Products, Quant Pending D-Dimer 10.40 mg/L FEU (0.00-0.49) H Sodium Level 123 MMOL/L (136-145) L Potassium Level 4.1 MMOL/L (3.5-5.1) Chloride Level 92 MMOL/L (98-107) L Carbon Dioxide Level 30 MMOL/L (21-32) Anion Gap 1 mmol/L (5-15) L Blood Urea Nitrogen 34 mg/dL (7-18) H Creatinine 1.2 MG/DL (0.55-1.30) Estimat Glomerular Filtration Rate 58.9 mL/min (>60) Glucose Level 126 MG/DL (74-106) H Calcium Level 7.1 MG/DL (8.5-10.1) L Phosphorus Level 2.4 MG/DL (2.5-4.9) L Magnesium Level 1.9 MG/DL (1.8-2.4) Random Vancomycin Level 19.5 ug/mL Urine Osmolality 311 mOsm/kg (429-449) L Urine Random Sodium < 20 mmol/L (20-110) L Ionized Calcium (Measured) 0.95 mmol/L (1.10-1.35) L Objective HEAD AND NECK: No JVD orally intubated. LUNGS: Decreased breath sounds and coarse rhonchi. SQ emphesyma Left chest tube is in CARDIOVASCULAR: Regular S1 and S2 with no gallop. ABDOMEN: Soft. EXTREMITIES: No pitting edema. Deric Garcia MD March 06, 2020 23:27
[2020-03-07] VITALS (55 sets, daily range): BP systolic 80–135; BP diastolic 43–80
[2020-03-07] MEDS: fentaNYL Citrate 2,500 MCG in NS 200 ML IV SCH ×2 (00:48→11:50)
[2020-03-07] MEDS: Metoclopramide 10mg/2ml Inj IVP SCH ×4 (05:38→23:29)
[2020-03-07] MEDS: metroNIDAZOLE 500mg tab ORAL SCH ×3 (05:38→21:41)
[2020-03-07 05:42] LABS: HEMATOCRIT 25.2 % (42.0-52.0); HEMOGLOBIN 8.8 G/DL (14.2-18.0); MEAN CORPUSCULAR VOLUME 92 FL (80-99); PLATELET COUNT 19 K/UL (150-450); RED BLOOD COUNT 2.75 M/UL (4.70-6.10); RED CELL DISTRIBUTION WIDTH 15.6 % (11.6-14.8)
[2020-03-07] MEDS: Norepinephrine Bitartrate 8 MG in D5W 500ml 492 ML IV SCH ×3 (05:49→19:25)
[2020-03-07 05:54] LABS: WHITE BLOOD COUNT 22.3 K/UL (4.8-10.8)
[2020-03-07] MEDS: NovoLOG Insulin Flexpen SUBQ SCH ×4 (06:00→23:29)
[2020-03-07 06:30] LABS: ALANINE AMINOTRANSFERASE 27 U/L (12-78); ALBUMIN 1.7 G/DL (3.4-5.0); ALBUMIN/GLOBULIN RATIO 0.5 (1.0-2.7); ALKALINE PHOSPHATASE 177 U/L (46-116); ANION GAP 6 mmol/L (5-15); ASPARTATE AMINO TRANSFERASE 42 U/L (15-37); BILIRUBIN,TOTAL 7.6 MG/DL (0.2-1.0); BLOOD UREA NITROGEN 37 mg/dL (7-18); CALCIUM 7.1 MG/DL (8.5-10.1); CARBON DIOXIDE 29 MMOL/L (21-32); CHLORIDE 94 MMOL/L (98-107); CREATININE 1.2 MG/DL (0.55-1.30); PHOSPHORUS 3.8 MG/DL (2.5-4.9); POTASSIUM 3.8 MMOL/L (3.5-5.1); SODIUM 129 MMOL/L (136-145)
[2020-03-07 06:35] LABS: BILIRUBIN,DIRECT 6.3 MG/DL (0.0-0.3)
--- NOTE | 2020-03-07 07:51 | General Progress Note ---
Assessment/Plan Status: unchanged Assessment/Plan: 74 y/o M from [place], PMH HTN, DMT2, dementia, Alzheimers dx, h/o CVA/TIA, h/o DVT, schizophrenia who presents for Fever. In the ED, pt found to be septic, Tm 100.9 , RR22, WBC 7.3, Lactic acid 2.8, and ABG revealed acute hypoxic respiratory failure. Pt was intubated and admitted to ICU for acute hypoxic respiratory failure, COVID positive. #Septic shock 2/2 #Acute Hypoxic Respiratory Failure 2/2 HCAP/COVID+ and CHF #Pneumothorax s/p left Chest tube 03/01 -Appreciate ICU level care -pt intubated in ED, 02/21 -Cont. COVID isolation protocol -Continue Vent management , Fentanyl for sedation, Currently on Levophed , s/p Fredrick -Chest tube management per surgery -BNP >2000, echo EF 50% -s/p plaquenil (stopped on 02/27) -Trend Predictive Markers Q3 days, Ddimer, CRP, Procalcitonin, Ferritin -ID: vanc, zosyn, doxycycline --> repeat amaya Cx 03/06 given climbing WBC and fevers #Thrombocytopenia #Anemia of chronic dx -likely multifactorial, 2/2 to above/sepsis/COVID -Epogen, iron not indicated at this time given acute infection -s/p blood transfusion -Heme consulted, Dr. Verde: ok for ppx if plts >50k w/either heparin or lovenox #Jaundiced - stable #Hyperbilirubinemia -elevated t bili, direct bili likely 2/2 sepsis -appreciate GI recs #Hyponatremia #Hypokalemia #Hypernatremia - improved -likely 2/2 dehydration -ctm electrolytes, replace PRN -nephro following, recs appreciated #Type 2 DM -holding home metformin -accuchecks q6h -ISS changed from sensitive to moderate #HTN -holding home bp meds given septic shock -holding Lasix 20 mg q daily, benazepril 5 mg q daily #Alzheimer disease/Dementia #Schizophrenia/Bipolar dx -reviewed MAR from [place], no home meds for schizophrenia/bipolar dx noted -holding home aricept given clinical picture DVT PPx: lovenox Time spent: 55 mins, 30 mins spent on critical care time. Critical Care Services performed include: Telemetry Review Hemodynamic measurement interpretation Laboratory data review and interpretation Medication adjustments Radiographic images reviewed Discussion of patient's care with ICU team, Nursing staff and consulting physicians on POC. Time of note may not reflect time of encounter. Subjective Allergies: Coded Allergies: No Known Allergies (Unverified , 01/19/19) Subjective F/u for acute respiratory failure, COVID+, s/p intubation on 02/21, PTX s/p left chest tube placed on 03/01 by general sx. Remains on pressure support, levo 24 mcg, FiO2 50%, no PEEP s/p 2 U PRBC now hyponatremic Unable to obtain ROS due to clinical picture. Objective Last 24 Hour Vital Signs Date Time Temp Pulse Resp B/P (MAP) Pulse Ox O2 Delivery O2 Flow Rate FiO2 03/07/20 07:00 24 Mechanical Ventilator 70 03/07/20 07:00 107/50 03/07/20 07:00 96 21 107/50 (69) 95 03/07/20 06:30 98 20 110/57 (74) 95 03/07/20 06:30 96 23 03/07/20 06:00 97 20 120/56 (77) 94 03/07/20 06:00 23 Mechanical Ventilator 80 03/07/20 06:00 120/55 03/07/20 05:49 81/33 03/07/20 05:30 97 20 119/67 (84) 95 03/07/20 05:00 98 21 115/63 (80) 95 03/07/20 05:00 24 Mechanical Ventilator 80 03/07/20 05:00 115/63 03/07/20 04:30 97.3 90 20 91/51 (64) 95 03/07/20 04:00 Mechanical Ventilator 03/07/20 04:00 80 03/07/20 04:00 22 Mechanical Ventilator 80 03/07/20 04:00 109/59 03/07/20 04:00 96 21 109/59 (76) 95 03/07/20 04:00 98 03/07/20 03:30 96 21 118/59 (78) 97 03/07/20 03:29 104 23 80 03/07/20 03:19 97.6 03/07/20 03:00 96 20 108/51 (70) 95 03/07/20 03:00 23 Mechanical Ventilator 80 03/07/20 03:00 108/51 03/07/20 02:45 111/61 03/07/20 02:30 97 23 101/60 (74) 96 03/07/20 02:30 101/60 03/07/20 02:15 107/43 03/07/20 02:00 22 Mechanical Ventilator 90 03/07/20 02:00 83/53 03/07/20 02:00 97 21 83/53 (63) 96 03/07/20 01:45 119/38 03/07/20 01:30 97 16 118/54 (75) 93 03/07/20 01:30 118/54 03/07/20 01:15 138/61 03/07/20 01:00 102 20 135/63 (87) 99 03/07/20 01:00 24 Mechanical Ventilator 90 03/07/20 01:00 135/63 03/07/20 00:48 22 Mechanical Ventilator 90 03/07/20 00:45 128/58 03/07/20 00:30 97.6 94 20 110/71 (84) 99 03/07/20 00:30 110/71 03/07/20 00:15 109/50 03/07/20 00:00 21 Mechanical Ventilator 90 03/07/20 00:00 132/61 03/07/20 00:00 Mechanical Ventilator 03/07/20 00:00 102 23 132/61 (84) 97 03/06/20 23:45 102 21 139/58 (85) 97 03/06/20 23:45 139/58 03/06/20 23:30 101 20 126/58 (80) 97 03/06/20 23:30 126/58 03/06/20 23:16 108 21 100 03/06/20 23:15 139/62 03/06/20 23:00 22 Mechanical Ventilator 90 03/06/20 23:00 132/66 03/06/20 23:00 102 23 132/66 (88) 97 03/06/20 22:45 136/64 03/06/20 22:30 101 23 138/56 (83) 100 03/06/20 22:30 138/56 03/06/20 22:10 140/61 03/06/20 22:00 20 Mechanical Ventilator 100 03/06/20 22:00 140/61 03/06/20 22:00 99 22 140/61 (87) 100 03/06/20 21:30 140/60 03/06/20 21:30 103 20 142/60 (87) 99 03/06/20 21:00 106 22 142/55 (84) 99 03/06/20 21:00 24 Mechanical Ventilator 100 03/06/20 21:00 142/55 03/06/20 20:30 98.6 108 23 141/62 (88) 98 03/06/20 20:00 100 03/06/20 20:00 109 23 140/61 (87) 98 03/06/20 20:00 23 Mechanical Ventilator 100 03/06/20 20:00 140/61 03/06/20 20:00 107 03/06/20 20:00 Mechanical Ventilator 03/06/20 19:30 109 22 142/58 (86) 98 03/06/20 19:27 110 20 100 03/06/20 19:00 22 Mechanical Ventilator 03/06/20 19:00 141/57 03/06/20 19:00 107 21 141/57 (85) 98 03/06/20 18:00 112 20 132/58 (82) 98 03/06/20 17:30 112 21 133/53 (79) 98 03/06/20 17:00 21 Mechanical Ventilator 03/06/20 17:00 136/50 03/06/20 17:00 115 21 136/50 (78) 98 03/06/20 16:30 115 24 136/56 (82) 98 03/06/20 16:00 113 03/06/20 16:00 99.7 112 22 135/71 (92) 97 03/06/20 16:00 22 Mechanical Ventilator 03/06/20 16:00 135/71 03/06/20 16:00 Mechanical Ventilator 03/06/20 16:00 100 03/06/20 15:47 113 22 100 03/06/20 15:34 110/47 03/06/20 15:30 109 21 128/55 (79) 98 03/06/20 15:15 103 20 113/51 (71) 99 03/06/20 15:00 20 Mechanical Ventilator 03/06/20 15:00 113/48 03/06/20 15:00 104 20 113/48 (69) 98 03/06/20 14:00 106 20 110/47 (68) 99 03/06/20 14:00 20 Mechanical Ventilator 03/06/20 14:00 110/47 03/06/20 13:30 109 20 115/47 (69) 99 03/06/20 13:12 111 22 131/55 (80) 99 03/06/20 13:00 109 22 83/40 (54) 99 03/06/20 13:00 22 Mechanical Ventilator 03/06/20 13:00 131/55 03/06/20 12:30 110 20 126/55 (78) 97 03/06/20 12:15 110 20 124/58 (80) 97 03/06/20 12:00 Mechanical Ventilator 03/06/20 12:00 109 03/06/20 12:00 21 Mechanical Ventilator 03/06/20 12:00 131/55 03/06/20 12:00 100 03/06/20 12:00 99.9 111 21 131/55 (80) 97 03/06/20 11:26 110 20 100 03/06/20 11:03 110 20 126/56 (79) 98 03/06/20 11:00 20 Mechanical Ventilator 03/06/20 11:00 126/56 03/06/20 10:45 109 113/48 03/06/20 10:00 109 20 113/48 (69) 100 03/06/20 10:00 20 Mechanical Ventilator 03/06/20 10:00 113/48 03/06/20 09:37 104/48 03/06/20 09:00 21 Mechanical Ventilator 03/06/20 09:00 104/58 03/06/20 09:00 112 21 104/48 (66) 98 03/06/20 08:30 114 22 123/54 (77) 93 03/06/20 08:15 100.5 113 23 126/54 (78) 92 03/06/20 08:00 113 21 134/56 (82) 92 03/06/20 08:00 21 Mechanical Ventilator 03/06/20 08:00 134/56 03/06/20 08:00 100 03/06/20 08:00 110 03/06/20 08:00 Mechanical Ventilator Intake and Output 03/06/20 03/07/20 19:00 07:00 Intake Total 1844.90863 ml 1602.5 ml Output Total 510 ml 1145 ml Balance 1334.46620 ml 457.5 ml Free Water 200 ml IV Total 1734.82017 ml 1342.5 ml Tube Feeding 110 ml 60 ml Output Urine Total 270 ml 700 ml Chest Tube Drainage Total 240 ml Other 445 ml Laboratory Tests 03/06/20 12:05: Urine Osmolality 311L, Urine Random Sodium < 20L 03/06/20 15:15: Ionized Calcium (Measured) 0.95L 03/07/20 04:38: White Blood Count 22.3*H, Red Blood Count 2.75L, Hemoglobin 8.8L, Hematocrit 25.2L, Mean Corpuscular Volume 92, Mean Corpuscular Hemoglobin 31.9H, Mean Corpuscular Hemoglobin Concent 34.8, Red Cell Distribution Width 15.6H, Platelet Count 19#L, Mean Platelet Volume 10.0, Neutrophils (%) (Auto) , Lymphocytes (%) (Auto) , Monocytes (%) (Auto) , Eosinophils (%) (Auto) , Basophils (%) (Auto) , Neutrophils % (Manual) [Pending], Lymphocytes % (Manual) [Pending], Platelet Estimate [Pending], Platelet Morphology [Pending], Sodium Level 129L, Potassium Level 3.8, Chloride Level 94L, Carbon Dioxide Level 29, Anion Gap 6, Blood Urea Nitrogen 37H, Creatinine 1.2, Estimat Glomerular Filtration Rate 58.9, Glucose Level 121H, Calcium Level 7.1L, Phosphorus Level 3.8, Magnesium Level 2.0, Total Bilirubin 7.6H, Direct Bilirubin 6.3H, Aspartate Amino Transf (AST/SGOT) 42H, Alanine Aminotransferase (ALT/SGPT) 27, Alkaline Phosphatase 177H, Total Protein 4.8L, Albumin 1.7L, Globulin 3.1, Albumin/Globulin Ratio 0.5L Height (Feet): 5 Height (Inches): 5.00 Weight (Pounds): 147 Objective General: intubated, sedated, improved jaundice HEENT: NCAT, ETT in place, OG tube in place CV: Sinus Tachycardic on tele Pulm: equal rise in lungs, left chest tube draining 900 cc orange fluid per nurse GI: abd appears non-distended Ext: No lower extremity edema bilaterally Gosia Nunez M.D. March 07, 2020 07:51
[2020-03-07] MEDS: Pantoprazole Inj IVP SCH (08:48)
[2020-03-07 09:25] LABS: APPEARANCE,URINE SLIGHTLY CLOUDY; BILIRUBIN, URINE 1+ (NEGATIVE); GLUCOSE, URINE (UA) NEGATIVE (NEGATIVE); KETONES,URINE NEGATIVE (NEGATIVE); LEUKOCYTE ESTERASE ,URINE NEGATIVE (NEGATIVE); NITRITE,URINE NEGATIVE (NEGATIVE); PH,URINE 5 (4.5-8.0); PROTEIN,URINE 2+ (NEGATIVE); UROBILINOGEN,URINE NORMAL MG/DL (0.0-1.0)
[2020-03-07 09:29] LABS: INR 1.5 (0.9-1.1)
[2020-03-07 09:39] LABS: COLOR,URINE YELLOW
--- NOTE | 2020-03-07 10:38 | Nephrology Progress Note ---
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 # h/o DVT # schizophrenia, bipolar #thrombocytopenia #hypokalemia, hypophos - repleted #hypoalbuminemia - albumin 25g x1 today - monitor sodium - replete lytes, phos and K prn - continue icu care - off IVF - replete lytes prn - vasopressor per pulmonary - vent management per pulm - antibiotics per ID - check free calcium in am - monitor lytes - BG control - holding antihypertensive Subjective ROS Limited/Unobtainable: Yes Subjective labs reviewed sodium 129 on levo drip Fio2 80 Objective Objective Last 24 Hour Vital Signs Date Time Temp Pulse Resp B/P (MAP) Pulse Ox O2 Delivery O2 Flow Rate FiO2 03/07/20 09:00 22 Mechanical Ventilator 03/07/20 09:00 97/58 03/07/20 09:00 100 22 97/58 (71) 94 03/07/20 08:30 98 20 113/54 (73) 95 03/07/20 08:30 99 21 80 03/07/20 08:15 100 20 112/62 (79) 96 03/07/20 08:00 80 03/07/20 08:00 97.9 99 20 101/59 (73) 95 03/07/20 08:00 20 Mechanical Ventilator 03/07/20 08:00 101/59 03/07/20 08:00 99 03/07/20 08:00 Mechanical Ventilator 03/07/20 08:00 99 20 101/59 (73) 95 03/07/20 07:52 98 21 111/56 (74) 94 03/07/20 07:47 93 20 81/45 (57) 95 03/07/20 07:30 97 20 111/58 (75) 96 03/07/20 07:21 98 21 80 03/07/20 07:00 24 Mechanical Ventilator 70 03/07/20 07:00 107/50 03/07/20 07:00 96 21 107/50 (69) 95 03/07/20 06:30 98 20 110/57 (74) 95 03/07/20 06:30 96 23 03/07/20 06:00 97 20 120/56 (77) 94 03/07/20 06:00 23 Mechanical Ventilator 80 03/07/20 06:00 120/55 03/07/20 05:49 81/33 03/07/20 05:30 97 20 119/67 (84) 95 03/07/20 05:00 98 21 115/63 (80) 95 03/07/20 05:00 24 Mechanical Ventilator 80 03/07/20 05:00 115/63 03/07/20 04:30 97.3 90 20 91/51 (64) 95 03/07/20 04:00 Mechanical Ventilator 03/07/20 04:00 80 03/07/20 04:00 22 Mechanical Ventilator 80 03/07/20 04:00 109/59 03/07/20 04:00 96 21 109/59 (76) 95 03/07/20 04:00 98 03/07/20 03:30 96 21 118/59 (78) 97 03/07/20 03:29 104 23 80 03/07/20 03:19 97.6 03/07/20 03:00 96 20 108/51 (70) 95 03/07/20 03:00 23 Mechanical Ventilator 80 03/07/20 03:00 108/51 03/07/20 02:45 111/61 03/07/20 02:30 97 23 101/60 (74) 96 03/07/20 02:30 101/60 03/07/20 02:15 107/43 03/07/20 02:00 22 Mechanical Ventilator 90 03/07/20 02:00 83/53 03/07/20 02:00 97 21 83/53 (63) 96 03/07/20 01:45 119/38 03/07/20 01:30 97 16 118/54 (75) 93 03/07/20 01:30 118/54 03/07/20 01:15 138/61 03/07/20 01:00 102 20 135/63 (87) 99 03/07/20 01:00 24 Mechanical Ventilator 90 03/07/20 01:00 135/63 03/07/20 00:48 22 Mechanical Ventilator 90 03/07/20 00:45 128/58 03/07/20 00:30 97.6 94 20 110/71 (84) 99 03/07/20 00:30 110/71 03/07/20 00:15 109/50 03/07/20 00:00 21 Mechanical Ventilator 90 03/07/20 00:00 132/61 03/07/20 00:00 Mechanical Ventilator 03/07/20 00:00 102 23 132/61 (84) 97 03/06/20 23:45 102 21 139/58 (85) 97 03/06/20 23:45 139/58 03/06/20 23:30 101 20 126/58 (80) 97 03/06/20 23:30 126/58 03/06/20 23:16 108 21 100 03/06/20 23:15 139/62 03/06/20 23:00 22 Mechanical Ventilator 90 03/06/20 23:00 132/66 03/06/20 23:00 102 23 132/66 (88) 97 03/06/20 22:45 136/64 03/06/20 22:30 101 23 138/56 (83) 100 03/06/20 22:30 138/56 03/06/20 22:10 140/61 03/06/20 22:00 20 Mechanical Ventilator 100 03/06/20 22:00 140/61 03/06/20 22:00 99 22 140/61 (87) 100 03/06/20 21:30 140/60 03/06/20 21:30 103 20 142/60 (87) 99 03/06/20 21:00 106 22 142/55 (84) 99 03/06/20 21:00 24 Mechanical Ventilator 100 03/06/20 21:00 142/55 03/06/20 20:30 98.6 108 23 141/62 (88) 98 03/06/20 20:00 100 03/06/20 20:00 109 23 140/61 (87) 98 03/06/20 20:00 23 Mechanical Ventilator 100 03/06/20 20:00 140/61 03/06/20 20:00 107 03/06/20 20:00 Mechanical Ventilator 03/06/20 19:30 109 22 142/58 (86) 98 03/06/20 19:27 110 20 100 03/06/20 19:00 22 Mechanical Ventilator 03/06/20 19:00 141/57 03/06/20 19:00 107 21 141/57 (85) 98 03/06/20 18:00 112 20 132/58 (82) 98 5/10/20 17:30 112 21 133/53 (79) 98 03/06/20 17:00 21 Mechanical Ventilator 03/06/20 17:00 136/50 03/06/20 17:00 115 21 136/50 (78) 98 03/06/20 16:30 115 24 136/56 (82) 98 03/06/20 16:00 113 03/06/20 16:00 99.7 112 22 135/71 (92) 97 03/06/20 16:00 22 Mechanical Ventilator 03/06/20 16:00 135/71 03/06/20 16:00 Mechanical Ventilator 03/06/20 16:00 100 03/06/20 15:47 113 22 100 03/06/20 15:34 110/47 03/06/20 15:30 109 21 128/55 (79) 98 03/06/20 15:15 103 20 113/51 (71) 99 03/06/20 15:00 20 Mechanical Ventilator 03/06/20 15:00 113/48 03/06/20 15:00 104 20 113/48 (69) 98 03/06/20 14:00 106 20 110/47 (68) 99 03/06/20 14:00 20 Mechanical Ventilator 03/06/20 14:00 110/47 03/06/20 13:30 109 20 115/47 (69) 99 03/06/20 13:12 111 22 131/55 (80) 99 03/06/20 13:00 109 22 83/40 (54) 99 03/06/20 13:00 22 Mechanical Ventilator 03/06/20 13:00 131/55 03/06/20 12:30 110 20 126/55 (78) 97 03/06/20 12:15 110 20 124/58 (80) 97 03/06/20 12:00 Mechanical Ventilator 03/06/20 12:00 109 03/06/20 12:00 21 Mechanical Ventilator 03/06/20 12:00 131/55 03/06/20 12:00 100 03/06/20 12:00 99.9 111 21 131/55 (80) 97 03/06/20 11:26 110 20 100 03/06/20 11:03 110 20 126/56 (79) 98 03/06/20 11:00 20 Mechanical Ventilator 03/06/20 11:00 126/56 03/06/20 10:45 109 113/48 Intake and Output 03/06/20 03/07/20 19:00 07:00 Intake Total 1844.02933 ml 1602.5 ml Output Total 510 ml 1145 ml Balance 1334.78507 ml 457.5 ml Free Water 200 ml IV Total 1734.39009 ml 1342.5 ml Tube Feeding 110 ml 60 ml Output Urine Total 270 ml 700 ml Chest Tube Drainage Total 240 ml Other 445 ml Laboratory Tests 03/06/20 12:05: Urine Osmolality 311L, Urine Random Sodium < 20L 03/06/20 15:15: Ionized Calcium (Measured) 0.95L 03/07/20 04:25: Urine Color Yellow, Urine Appearance Slightly cloudy, Urine pH 5, Urine Specific Cameron 1.015, Urine Protein 2+H, Urine Glucose (UA) Negative, Urine Ketones Negative, Urine Blood 2+H, Urine Nitrite Negative, Urine Bilirubin 1+H, Urine Ictotest [Pending], Urine Urobilinogen Normal, Urine Leukocyte Esterase Negative, Urine RBC 0-2H, Urine WBC 2-4, Urine Squamous Epithelial Cells Occasional, Urine Amorphous Sediment ManyH, Urine Bacteria Occasional 03/07/20 04:38: White Blood Count 22.3*H, Red Blood Count 2.75L, Hemoglobin 8.8L, Hematocrit 25.2L, Mean Corpuscular Volume 92, Mean Corpuscular Hemoglobin 31.9H, Mean Corpuscular Hemoglobin Concent 34.8, Red Cell Distribution Width 15.6H, Platelet Count 19#L, Mean Platelet Volume 10.0, Neutrophils (%) (Auto) , Lymphocytes (%) (Auto) , Monocytes (%) (Auto) , Eosinophils (%) (Auto) , Basophils (%) (Auto) , Differential Total Cells Counted 100, Neutrophils % ( Manual) 93H, Lymphocytes % (Manual) 1L, Monocytes % (Manual) 6, Eosinophils % ( Manual) 0, Basophils % (Manual) 0, Band Neutrophils 0, Nucleated Red Blood Cells 1, Platelet Estimate DecreasedL, Platelet Morphology Normal, Hypochromasia 2+, Anisocytosis 1+, Spherocytes 1+, Sodium Level 129L, Potassium Level 3.8, Chloride Level 94L, Carbon Dioxide Level 29, Anion Gap 6, Blood Urea Nitrogen 37H, Creatinine 1.2, Estimat Glomerular Filtration Rate 58.9, Glucose Level 121H, Calcium Level 7.1L, Phosphorus Level 3.8, Magnesium Level 2.0, Total Bilirubin 7.6H, Direct Bilirubin 6.3H, Aspartate Amino Transf (AST/SGOT) 42H, Alanine Aminotransferase (ALT/SGPT) 27, Alkaline Phosphatase 177H, Total Protein 4.8L, Albumin 1.7L, Globulin 3.1, Albumin/Globulin Ratio 0.5L 03/07/20 09:00: Prothrombin Time 15.8H, Prothromb Time International Ratio 1.5H, Activated Partial Thromboplast Time 39H Height (Feet): 5 Height (Inches): 5.00 Weight (Pounds): 147 Objective General Appearance: other - intubated Lines, tubes and drains: peripheral HEENT: normocephalic, atraumatic, other - dry mucous membranes Neck: non-tender, normal alignment Respiratory/Chest: rhonchi - bilaterally Cardiovascular/Chest: normal peripheral pulses, normal rate Abdomen: soft, hypoactive bowel sounds Extremities: normal range of motion, no calf tenderness, non-pitting, no edema Skin Exam: normal pigmentation, warm/dry Dwayne Salas M.D. March 07, 2020 10:38
[2020-03-07] MEDS: Phenylephrine 50 MG in D5W 245 ML IV SCH (10:45)
--- NOTE | 2020-03-07 11:36 | General Progress Note ---
Assessment/Plan Problem List: (1) Elevated LFTs ICD Codes: R79.89 - Other specified abnormal findings of blood chemistry SNOMED: 581030213, 653138468 (2) Thrombocytopenia ICD Codes: D69.6 - Thrombocytopenia, unspecified SNOMED: 894026052 (3) Suspected COVID-19 virus infection ICD Codes: Z20.828 - Contact with and (suspected) exposure to other viral communicable diseases SNOMED: 152872897 (4) Respiratory failure with hypoxia ICD Codes: J96.91 - Respiratory failure, unspecified with hypoxia SNOMED: 97992563902782234 Qualifiers: Qualified Codes: J96.01 - Acute respiratory failure with hypoxia (5) Hypotension ICD Codes: I95.9 - Hypotension, unspecified SNOMED: 55710718 Qualifiers: Qualified Codes: I95.9 - Hypotension, unspecified (6) Alzheimer's dementia ICD Codes: G30.9 - Alzheimer's disease, unspecified; F02.80 - Dementia in other diseases classified elsewhere without behavioral disturbance SNOMED: 01530088 (7) Cerebrovascular accident (CVA) ICD Codes: I63.9 - Cerebral infarction, unspecified SNOMED: 818433343 (8) History of hypertension ICD Codes: Z86.79 - Personal history of other diseases of the circulatory system SNOMED: 649094440 (9) Diabetes mellitus ICD Codes: E11.9 - Type 2 diabetes mellitus without complications SNOMED: 66730449 Status: unchanged Assessment/Plan: reglan monitor for residuals fu labs abx per ID elevated TB most likely due to sepsis current TF at 20 cc, poor prognosis Subjective ROS Limited/Unobtainable: No Allergies: Coded Allergies: No Known Allergies (Unverified , 01/19/19) Objective Last 24 Hour Vital Signs Date Time Temp Pulse Resp B/P (MAP) Pulse Ox O2 Delivery O2 Flow Rate FiO2 03/07/20 11:15 93 20 107/48 (67) 94 03/07/20 11:00 20 Mechanical Ventilator 03/07/20 11:00 96/47 03/07/20 11:00 91 20 96/47 (63) 93 03/07/20 10:45 100 107/48 03/07/20 10:45 91 20 89/51 (64) 93 03/07/20 10:30 93 20 95/43 (60) 93 03/07/20 10:15 94 20 91/47 (62) 92 03/07/20 10:00 20 Mechanical Ventilator 03/07/20 10:00 94/48 03/07/20 10:00 95 20 94/48 (63) 92 03/07/20 09:00 22 Mechanical Ventilator 03/07/20 09:00 97/58 03/07/20 09:00 100 22 97/58 (71) 94 03/07/20 08:30 98 20 113/54 (73) 95 03/07/20 08:30 99 21 80 03/07/20 08:15 100 20 112/62 (79) 96 03/07/20 08:00 80 03/07/20 08:00 97.9 99 20 101/59 (73) 95 03/07/20 08:00 20 Mechanical Ventilator 03/07/20 08:00 101/59 03/07/20 08:00 99 03/07/20 08:00 Mechanical Ventilator 03/07/20 08:00 99 20 101/59 (73) 95 03/07/20 07:52 98 21 111/56 (74) 94 03/07/20 07:47 93 20 81/45 (57) 95 03/07/20 07:30 97 20 111/58 (75) 96 03/07/20 07:21 98 21 80 03/07/20 07:00 24 Mechanical Ventilator 70 03/07/20 07:00 107/50 03/07/20 07:00 96 21 107/50 (69) 95 03/07/20 06:30 98 20 110/57 (74) 95 03/07/20 06:30 96 23 03/07/20 06:00 97 20 120/56 (77) 94 03/07/20 06:00 23 Mechanical Ventilator 80 03/07/20 06:00 120/55 03/07/20 05:49 81/33 03/07/20 05:30 97 20 119/67 (84) 95 03/07/20 05:00 98 21 115/63 (80) 95 03/07/20 05:00 24 Mechanical Ventilator 80 03/07/20 05:00 115/63 03/07/20 04:30 97.3 90 20 91/51 (64) 95 03/07/20 04:00 Mechanical Ventilator 03/07/20 04:00 80 03/07/20 04:00 22 Mechanical Ventilator 80 03/07/20 04:00 109/59 03/07/20 04:00 96 21 109/59 (76) 95 03/07/20 04:00 98 03/07/20 03:30 96 21 118/59 (78) 97 03/07/20 03:29 104 23 80 03/07/20 03:19 97.6 03/07/20 03:00 96 20 108/51 (70) 95 03/07/20 03:00 23 Mechanical Ventilator 80 03/07/20 03:00 108/51 03/07/20 02:45 111/61 03/07/20 02:30 97 23 101/60 (74) 96 03/07/20 02:30 101/60 03/07/20 02:15 107/43 03/07/20 02:00 22 Mechanical Ventilator 90 03/07/20 02:00 83/53 03/07/20 02:00 97 21 83/53 (63) 96 03/07/20 01:45 119/38 03/07/20 01:30 97 16 118/54 (75) 93 03/07/20 01:30 118/54 03/07/20 01:15 138/61 03/07/20 01:00 102 20 135/63 (87) 99 03/07/20 01:00 24 Mechanical Ventilator 90 03/07/20 01:00 135/63 03/07/20 00:48 22 Mechanical Ventilator 90 03/07/20 00:45 128/58 03/07/20 00:30 97.6 94 20 110/71 (84) 99 03/07/20 00:30 110/71 03/07/20 00:15 109/50 03/07/20 00:00 21 Mechanical Ventilator 90 03/07/20 00:00 132/61 03/07/20 00:00 Mechanical Ventilator 03/07/20 00:00 102 23 132/61 (84) 97 03/06/20 23:45 102 21 139/58 (85) 97 03/06/20 23:45 139/58 03/06/20 23:30 101 20 126/58 (80) 97 03/06/20 23:30 126/58 03/06/20 23:16 108 21 100 03/06/20 23:15 139/62 03/06/20 23:00 22 Mechanical Ventilator 90 03/06/20 23:00 132/66 03/06/20 23:00 102 23 132/66 (88) 97 03/06/20 22:45 136/64 03/06/20 22:30 101 23 138/56 (83) 100 03/06/20 22:30 138/56 03/06/20 22:10 140/61 03/06/20 22:00 20 Mechanical Ventilator 100 03/06/20 22:00 140/61 03/06/20 22:00 99 22 140/61 (87) 100 03/06/20 21:30 140/60 03/06/20 21:30 103 20 142/60 (87) 99 03/06/20 21:00 106 22 142/55 (84) 99 03/06/20 21:00 24 Mechanical Ventilator 100 03/06/20 21:00 142/55 03/06/20 20:30 98.6 108 23 141/62 (88) 98 03/06/20 20:00 100 03/06/20 20:00 109 23 140/61 (87) 98 03/06/20 20:00 23 Mechanical Ventilator 100 03/06/20 20:00 140/61 03/06/20 20:00 107 03/06/20 20:00 Mechanical Ventilator 03/06/20 19:30 109 22 142/58 (86) 98 03/06/20 19:27 110 20 100 03/06/20 19:00 22 Mechanical Ventilator 03/06/20 19:00 141/57 03/06/20 19:00 107 21 141/57 (85) 98 03/06/20 18:00 112 20 132/58 (82) 98 03/06/20 17:30 112 21 133/53 (79) 98 03/06/20 17:00 21 Mechanical Ventilator 03/06/20 17:00 136/50 03/06/20 17:00 115 21 136/50 (78) 98 03/06/20 16:30 115 24 136/56 (82) 98 03/06/20 16:00 113 03/06/20 16:00 99.7 112 22 135/71 (92) 97 03/06/20 16:00 22 Mechanical Ventilator 03/06/20 16:00 135/71 03/06/20 16:00 Mechanical Ventilator 03/06/20 16:00 100 03/06/20 15:47 113 22 100 03/06/20 15:34 110/47 03/06/20 15:30 109 21 128/55 (79) 98 03/06/20 15:15 103 20 113/51 (71) 99 03/06/20 15:00 20 Mechanical Ventilator 03/06/20 15:00 113/48 03/06/20 15:00 104 20 113/48 (69) 98 03/06/20 14:00 106 20 110/47 (68) 99 03/06/20 14:00 20 Mechanical Ventilator 03/06/20 14:00 110/47 03/06/20 13:30 109 20 115/47 (69) 99 03/06/20 13:12 111 22 131/55 (80) 99 03/06/20 13:00 109 22 83/40 (54) 99 03/06/20 13:00 22 Mechanical Ventilator 03/06/20 13:00 131/55 03/06/20 12:30 110 20 126/55 (78) 97 03/06/20 12:15 110 20 124/58 (80) 97 03/06/20 12:00 Mechanical Ventilator 03/06/20 12:00 109 03/06/20 12:00 21 Mechanical Ventilator 03/06/20 12:00 131/55 03/06/20 12:00 100 03/06/20 12:00 99.9 111 21 131/55 (80) 97 Intake and Output 03/06/20 03/07/20 19:00 07:00 Intake Total 1844.53711 ml 1602.5 ml Output Total 510 ml 1145 ml Balance 1334.26025 ml 457.5 ml Free Water 200 ml IV Total 1734.82084 ml 1342.5 ml Tube Feeding 110 ml 60 ml Output Urine Total 270 ml 700 ml Chest Tube Drainage Total 240 ml Other 445 ml Laboratory Tests 03/06/20 12:05: Urine Osmolality 311L, Urine Random Sodium < 20L 03/06/20 15:15: Ionized Calcium (Measured) 0.95L 03/07/20 04:25: Urine Color Yellow, Urine Appearance Slightly cloudy, Urine pH 5, Urine Specific [place] 1.015, Urine Protein 2+H, Urine Glucose (UA) Negative, Urine Ketones Negative, Urine Blood 2+H, Urine Nitrite Negative, Urine Bilirubin 1+H, Urine Ictotest Negative, Urine Urobilinogen Normal, Urine Leukocyte Esterase Negative, Urine RBC 0-2H, Urine WBC 2-4, Urine Squamous Epithelial Cells Occasional, Urine Amorphous Sediment ManyH, Urine Bacteria Occasional 03/07/20 04:38: White Blood Count 22.3*H, Red Blood Count 2.75L, Hemoglobin 8.8L, Hematocrit 25.2L, Mean Corpuscular Volume 92, Mean Corpuscular Hemoglobin 31.9H, Mean Corpuscular Hemoglobin Concent 34.8, Red Cell Distribution Width 15.6H, Platelet Count 19#L, Mean Platelet Volume 10.0, Neutrophils (%) (Auto) , Lymphocytes (%) (Auto) , Monocytes (%) (Auto) , Eosinophils (%) (Auto) , Basophils (%) (Auto) , Differential Total Cells Counted 100, Neutrophils % ( Manual) 93H, Lymphocytes % (Manual) 1L, Monocytes % (Manual) 6, Eosinophils % ( Manual) 0, Basophils % (Manual) 0, Band Neutrophils 0, Nucleated Red Blood Cells 1, Platelet Estimate DecreasedL, Platelet Morphology Normal, Hypochromasia 2+, Anisocytosis 1+, Spherocytes 1+, Sodium Level 129L, Potassium Level 3.8, Chloride Level 94L, Carbon Dioxide Level 29, Anion Gap 6, Blood Urea Nitrogen 37H, Creatinine 1.2, Estimat Glomerular Filtration Rate 58.9, Glucose Level 121H, Calcium Level 7.1L, Phosphorus Level 3.8, Magnesium Level 2.0, Total Bilirubin 7.6H, Direct Bilirubin 6.3H, Aspartate Amino Transf (AST/SGOT) 42H, Alanine Aminotransferase (ALT/SGPT) 27, Alkaline Phosphatase 177H, Total Protein 4.8L, Albumin 1.7L, Globulin 3.1, Albumin/Globulin Ratio 0.5L 03/07/20 09:00: Prothrombin Time 15.8H, Prothromb Time International Ratio 1.5H, Activated Partial Thromboplast Time 39H Height (Feet): 5 Height (Inches): 5.00 Weight (Pounds): 147 General Appearance: lethargic EENT: normal ENT inspection Neck: supple Cardiovascular: tachycardia Respiratory/Chest: decreased breath sounds Abdomen: normal bowel sounds, non tender, soft Extremities: non-tender Vosoghi,Domo MD March 07, 2020 11:36
--- NOTE | 2020-03-07 12:12 | Hematology/Onc Progress Note ---
Assessment/Plan Assessment/Plan # Severe thrombocytopenia - potential causes multifactorial, evaluate liver and viral etiologies to begin, in this particular case, given mosf, is due to [id number], has had hyperbilirubinemia, has received heparin and zosyn both culprits as well --> Hep panel and HIV ordered -- neg --> US abd to evaluate for cirrhosis and hsm ordered ->when covid is negative --> Peripheral smear ordered to evaluate for blasts /schistocytes (ALSO HAVE Ordered for DIC panel)-->DIC panel reviewed, D-dimer high, inr higher, hapto pending --> abx and other meds have been reviewed --> ok for ppx if plt >50k w/ either heparin or lovenox --> Transfuse if Plt < 20k and fever, or if Plt < 10k without fever --> off heparin now, have ordered for hit-pf4 antibody test-->neg --> plt trend 15-->20k-->37k->42->19 --> HOLD LOVENOX SQ # Anemia of chronic disease due to underlying chronic medical issues, multifactorial v Gi bleed --> Anemia workup has been ordered, rule out gi bleed --> No evidence of hemolysis is noted, peripheral smear has been reviewed. --> Hgb goal >7. Transfuse prn. --> Epogen or iron at this time is not particularly indicated --> Medications have been reviewed --> low threshold for gi evaluation in case has occult + --> bone marrow biopsy is not indicated given the other more likely causes --> hgb trend 9.9-->9.7-->8.6->10->8.8 # Leukocytosis with septic shock 2/2 due to covid 19 --> on abx as per id -->zosyn/doxy/vanc --> wbc remains elev 17k-->22 # Acute Hypoxic Respiratory Failure --> now s/p vent --> in icu # HCAP COVID positive --> abx, plaq and supp care # Jaundiced with Hyperbilirubinemia --> per gi--> with ogt --> have ordered repeat bilis, has improved # Schizophrenia # Bipolar dx # Dvt ppx scds The timing of this note does not necessarily reflect the time of the patient was seen. Greatly appreciate consultation. Subjective Allergies: Coded Allergies: No Known Allergies (Unverified , 01/19/19) Subjective 02/28 remains on vent, og, rush, sedated in icu, on pressors, plt 15k, smear pending 03/02 icu, levo gtt, s/p ffp x2 units, on abx, labs pending 03/03 remains on vent with ogt, no bleeding, no night sweats 03/04 no bleeding, meds noted, no f/c, no night sweats 03/06 intubated, left chest tube in pace, with of, no bleeding 03/07 nv, remains on vent, with left chest tube, with ogt, no bleeding, plt lower Objective Objective Current Medications Medications (Trade) Dose Ordered Sig/Cirilo Route PRN Reason Start Time Stop Time Status Last Admin Dose Admin Acetaminophen (Tylenol) 650 mg Q4H PRN ORAL Fever 02/22/20 14:15 03/23/20 14:14 02/28/20 17:52 Acetaminophen (Tylenol) 650 mg Q4H PRN ORAL Mild Pain (Pain Scale 1-3) 02/22/20 14:15 03/23/20 14:14 03/03/20 17:31 Acetaminophen (Tylenol) 650 mg Q4H PRN RECTAL Mild Pain (Pain Scale 1-3) 02/22/20 14:15 03/23/20 14:14 02/22/20 21:28 Acetaminophen (Tylenol) 650 mg Q4H PRN RECTAL FEVER 02/22/20 14:15 03/23/20 14:14 03/06/20 04:20 Cefepime HCl 2 gm/ Dextrose 100 ml @ 200 mls/hr Q12HR IVPB 03/06/20 21:00 03/13/20 20:59 03/07/20 08:49 Chlorhexidine Gluconate (Maira-Hex 2%) 1 applic DAILY@2000 TOPIC 02/23/20 20:00 05/23/20 19:59 03/06/20 20:26 Dextrose (Dextrose 50%) 25 ml Q30M PRN IV Hypoglycemia 02/23/20 09:00 05/23/20 08:59 Dextrose (Dextrose 50%) 50 ml Q30M PRN IV Hypoglycemia 02/23/20 09:00 05/23/20 08:59 Diphenhydramine HCl (Benadryl) 25 mg Q6H PRN ORAL Itching/Pruritis 02/22/20 14:15 03/23/20 14:14 02/26/20 01:34 Fentanyl Citrate 2500 mcg/Sodium Chloride 250 ml @ 0 mls/hr Q24H IV 03/01/20 19:45 03/08/20 19:44 03/07/20 11:50 Fluconazole/ Sodium Chloride 200 ml @ 200 mls/hr Q24H IV 03/06/20 20:00 03/13/20 19:59 03/06/20 20:26 Insulin Aspart (NovoLOG) Q6HR SUBQ 02/28/20 18:00 05/28/20 17:59 03/07/20 11:21 Metoclopramide HCl (Reglan) 5 mg Q6HR IVP 03/01/20 12:00 03/31/20 11:59 03/07/20 11:00 Metronidazole (Flagyl) 500 mg EVERY 8 HOURS ORAL 03/06/20 22:00 03/13/20 21:59 03/07/20 05:38 Midazolam HCl 100 ml @ 0 mls/hr Q24H IV 02/26/20 15:06 05/26/20 15:05 02/26/20 15:48 Norepinephrine Bitartrate 8 mg/ Dextrose 500 ml @ 0 mls/hr Q24H IV 02/23/20 19:01 03/24/20 19:00 03/07/20 05:49 Pantoprazole (Protonix) 40 mg DAILY IVP 02/23/20 09:30 03/24/20 09:29 03/07/20 08:48 Phenylephrine HCl 50 mg/Dextrose 250 ml @ 6 mls/hr Q24H IV 02/29/20 10:45 03/30/20 10:44 03/04/20 04:43 Vancomycin HCl (Vanco rx to dose) 1 ea DAILY PRN MISC Per rx protocol 03/06/20 18:15 04/05/20 18:14 Last 24 Hour Vital Signs Date Time Temp Pulse Resp B/P (MAP) Pulse Ox O2 Delivery O2 Flow Rate FiO2 03/07/20 12:00 97.7 96 20 117/58 (77) 94 03/07/20 12:00 20 Mechanical Ventilator 03/07/20 12:00 117/58 03/07/20 12:00 80 03/07/20 11:50 20 Mechanical Ventilator 03/07/20 11:30 91 20 95/49 (64) 94 03/07/20 11:15 93 20 107/48 (67) 94 03/07/20 11:00 20 Mechanical Ventilator 03/07/20 11:00 96/47 03/07/20 11:00 91 20 96/47 (63) 93 03/07/20 10:45 100 107/48 03/07/20 10:45 91 20 89/51 (64) 93 03/07/20 10:30 93 20 95/43 (60) 93 03/07/20 10:15 94 20 91/47 (62) 92 03/07/20 10:00 20 Mechanical Ventilator 03/07/20 10:00 94/48 03/07/20 10:00 95 20 94/48 (63) 92 03/07/20 09:00 22 Mechanical Ventilator 03/07/20 09:00 97/58 03/07/20 09:00 100 22 97/58 (71) 94 03/07/20 08:30 98 20 113/54 (73) 95 03/07/20 08:30 99 21 80 03/07/20 08:15 100 20 112/62 (79) 96 03/07/20 08:00 80 03/07/20 08:00 97.9 99 20 101/59 (73) 95 03/07/20 08:00 20 Mechanical Ventilator 03/07/20 08:00 101/59 03/07/20 08:00 99 03/07/20 08:00 Mechanical Ventilator 03/07/20 08:00 99 20 101/59 (73) 95 03/07/20 07:52 98 21 111/56 (74) 94 03/07/20 07:47 93 20 81/45 (57) 95 03/07/20 07:30 97 20 111/58 (75) 96 03/07/20 07:21 98 21 80 03/07/20 07:00 24 Mechanical Ventilator 70 03/07/20 07:00 107/50 03/07/20 07:00 96 21 107/50 (69) 95 03/07/20 06:30 98 20 110/57 (74) 95 03/07/20 06:30 96 23 03/07/20 06:00 97 20 120/56 (77) 94 03/07/20 06:00 23 Mechanical Ventilator 80 03/07/20 06:00 120/55 03/07/20 05:49 81/33 03/07/20 05:30 97 20 119/67 (84) 95 03/07/20 05:00 98 21 115/63 (80) 95 03/07/20 05:00 24 Mechanical Ventilator 80 03/07/20 05:00 115/63 03/07/20 04:30 97.3 90 20 91/51 (64) 95 03/07/20 04:00 Mechanical Ventilator 03/07/20 04:00 80 03/07/20 04:00 22 Mechanical Ventilator 80 03/07/20 04:00 109/59 03/07/20 04:00 96 21 109/59 (76) 95 03/07/20 04:00 98 03/07/20 03:30 96 21 118/59 (78) 97 03/07/20 03:29 104 23 80 03/07/20 03:19 97.6 03/07/20 03:00 96 20 108/51 (70) 95 03/07/20 03:00 23 Mechanical Ventilator 80 03/07/20 03:00 108/51 03/07/20 02:45 111/61 03/07/20 02:30 97 23 101/60 (74) 96 03/07/20 02:30 101/60 03/07/20 02:15 107/43 03/07/20 02:00 22 Mechanical Ventilator 90 03/07/20 02:00 83/53 03/07/20 02:00 97 21 83/53 (63) 96 03/07/20 01:45 119/38 03/07/20 01:30 97 16 118/54 (75) 93 03/07/20 01:30 118/54 03/07/20 01:15 138/61 03/07/20 01:00 102 20 135/63 (87) 99 03/07/20 01:00 24 Mechanical Ventilator 90 03/07/20 01:00 135/63 03/07/20 00:48 22 Mechanical Ventilator 90 03/07/20 00:45 128/58 03/07/20 00:30 97.6 94 20 110/71 (84) 99 03/07/20 00:30 110/71 03/07/20 00:15 109/50 03/07/20 00:00 21 Mechanical Ventilator 90 03/07/20 00:00 132/61 03/07/20 00:00 Mechanical Ventilator 03/07/20 00:00 102 23 132/61 (84) 97 03/06/20 23:45 102 21 139/58 (85) 97 03/06/20 23:45 139/58 03/06/20 23:30 101 20 126/58 (80) 97 03/06/20 23:30 126/58 03/06/20 23:16 108 21 100 03/06/20 23:15 139/62 03/06/20 23:00 22 Mechanical Ventilator 90 03/06/20 23:00 132/66 03/06/20 23:00 102 23 132/66 (88) 97 03/06/20 22:45 136/64 03/06/20 22:30 101 23 138/56 (83) 100 03/06/20 22:30 138/56 03/06/20 22:10 140/61 03/06/20 22:00 20 Mechanical Ventilator 100 03/06/20 22:00 140/61 03/06/20 22:00 99 22 140/61 (87) 100 03/06/20 21:30 140/60 03/06/20 21:30 103 20 142/60 (87) 99 03/06/20 21:00 106 22 142/55 (84) 99 03/06/20 21:00 24 Mechanical Ventilator 100 03/06/20 21:00 142/55 03/06/20 20:30 98.6 108 23 141/62 (88) 98 03/06/20 20:00 100 03/06/20 20:00 109 23 140/61 (87) 98 03/06/20 20:00 23 Mechanical Ventilator 100 03/06/20 20:00 140/61 03/06/20 20:00 107 03/06/20 20:00 Mechanical Ventilator 03/06/20 19:30 109 22 142/58 (86) 98 03/06/20 19:27 110 20 100 03/06/20 19:00 22 Mechanical Ventilator 03/06/20 19:00 141/57 03/06/20 19:00 107 21 141/57 (85) 98 03/06/20 18:00 112 20 132/58 (82) 98 03/06/20 17:30 112 21 133/53 (79) 98 03/06/20 17:00 21 Mechanical Ventilator 03/06/20 17:00 136/50 03/06/20 17:00 115 21 136/50 (78) 98 03/06/20 16:30 115 24 136/56 (82) 98 03/06/20 16:00 113 03/06/20 16:00 99.7 112 22 135/71 (92) 97 03/06/20 16:00 22 Mechanical Ventilator 03/06/20 16:00 135/71 03/06/20 16:00 Mechanical Ventilator 03/06/20 16:00 100 03/06/20 15:47 113 22 100 03/06/20 15:34 110/47 03/06/20 15:30 109 21 128/55 (79) 98 03/06/20 15:15 103 20 113/51 (71) 99 03/06/20 15:00 20 Mechanical Ventilator 03/06/20 15:00 113/48 03/06/20 15:00 104 20 113/48 (69) 98 03/06/20 14:00 106 20 110/47 (68) 99 03/06/20 14:00 20 Mechanical Ventilator 03/06/20 14:00 110/47 03/06/20 13:30 109 20 115/47 (69) 99 03/06/20 13:12 111 22 131/55 (80) 99 03/06/20 13:00 109 22 83/40 (54) 99 03/06/20 13:00 22 Mechanical Ventilator 03/06/20 13:00 131/55 03/06/20 12:30 110 20 126/55 (78) 97 03/06/20 12:15 110 20 124/58 (80) 97 03/06/20 12:00 Mechanical Ventilator 03/06/20 12:00 109 03/06/20 12:00 21 Mechanical Ventilator 03/06/20 12:00 131/55 03/06/20 12:00 100 03/06/20 12:00 99.9 111 21 131/55 (80) 97 03/06/20 11:26 110 20 100 03/06/20 11:03 110 20 126/56 (79) 98 03/06/20 11:00 20 Mechanical Ventilator 03/06/20 11:00 126/56 03/06/20 10:45 109 113/48 03/06/20 10:00 109 20 113/48 (69) 100 03/06/20 10:00 20 Mechanical Ventilator 03/06/20 10:00 113/48 03/06/20 09:37 104/48 03/06/20 09:00 21 Mechanical Ventilator 03/06/20 09:00 104/58 03/06/20 09:00 112 21 104/48 (66) 98 03/06/20 08:30 114 22 123/54 (77) 93 03/06/20 08:15 100.5 113 23 126/54 (78) 92 03/06/20 08:00 113 21 134/56 (82) 92 03/06/20 08:00 21 Mechanical Ventilator 03/06/20 08:00 134/56 03/06/20 08:00 100 03/06/20 08:00 110 03/06/20 08:00 Mechanical Ventilator 03/06/20 07:39 109 20 100 03/06/20 07:00 110 21 102/59 (73) 94 03/06/20 07:00 24 Mechanical Ventilator 80 03/06/20 07:00 101/68 03/06/20 06:30 113 20 99/52 (68) 96 03/06/20 06:30 113 20 03/06/20 06:00 24 Mechanical Ventilator 100 03/06/20 06:00 90/40 03/06/20 06:00 114 21 90/40 (57) 97 03/06/20 05:55 101.6 03/06/20 05:30 119 22 99/41 (60) 98 03/06/20 05:00 118 22 123/47 (72) 93 03/06/20 05:00 24 Mechanical Ventilator 100 03/06/20 05:00 123/47 03/06/20 04:44 102 27 100 03/06/20 04:30 118 24 118/50 (72) 92 03/06/20 04:19 92/38 03/06/20 04:00 Mechanical Ventilator 03/06/20 04:00 100 03/06/20 04:00 119 23 121/49 (73) 90 03/06/20 04:00 22 Mechanical Ventilator 100 03/06/20 04:00 121/49 03/06/20 04:00 114 03/06/20 03:30 116 21 108/45 (66) 91 03/06/20 03:00 118 21 104/43 (63) 88 03/06/20 03:00 21 Mechanical Ventilator 100 03/06/20 03:00 104/43 03/06/20 02:37 109 24 100 03/06/20 02:30 119 21 103/42 (62) 87 03/06/20 02:00 118 21 109/40 (63) 88 03/06/20 02:00 23 Mechanical Ventilator 100 03/06/20 02:00 109/41 03/06/20 01:30 115 22 109/41 (63) 88 03/06/20 01:00 22 Mechanical Ventilator 100 03/06/20 01:00 108/41 03/06/20 01:00 113 21 108/41 (63) 89 03/06/20 00:30 108/41 03/06/20 00:30 112 20 108/41 (63) 89 03/06/20 00:15 102/38 03/06/20 00:00 100.0 112 20 95/40 (58) 90 03/06/20 00:00 Mechanical Ventilator 03/06/20 00:00 21 Mechanical Ventilator 100 03/06/20 00:00 95/40 03/05/20 23:30 111 21 110/42 (64) 89 03/05/20 23:15 111 20 101/41 (61) 89 03/05/20 23:00 111 20 100/40 (60) 89 03/05/20 23:00 24 Mechanical Ventilator 100 03/05/20 23:00 100/40 03/05/20 22:50 116 20 100 03/05/20 22:30 100.4 111 20 113/45 (67) 89 03/05/20 22:12 103/38 03/05/20 22:00 28 Mechanical Ventilator 100 03/05/20 22:00 126/47 03/05/20 22:00 108 22 103/38 (59) 86 03/05/20 21:30 109 23 123/51 (75) 89 03/05/20 21:21 25 Mechanical Ventilator 100 03/05/20 21:00 25 Mechanical Ventilator 100 03/05/20 21:00 116/57 5/9/20 21:00 105 20 109/46 (67) 91 03/05/20 20:30 106 20 114/44 (67) 92 03/05/20 20:00 106 03/05/20 20:00 98.3 109 20 122/48 (72) 94 03/05/20 20:00 23 Mechanical Ventilator 80 03/05/20 20:00 101/47 03/05/20 20:00 Mechanical Ventilator 03/05/20 20:00 100 03/05/20 19:30 107 24 130/47 (74) 88 03/05/20 19:20 108 20 100 03/05/20 19:00 21 Mechanical Ventilator 80 03/05/20 19:00 135/45 03/05/20 19:00 110 23 135/45 (75) 87 03/05/20 18:33 110 23 140/46 (77) 89 03/05/20 18:00 109 23 137/46 (76) 89 03/05/20 18:00 24 Mechanical Ventilator 80 03/05/20 18:00 137/46 03/05/20 17:45 109 23 148/47 (80) 87 03/05/20 17:30 106 24 147/45 (79) 90 03/05/20 17:15 98.8 105 24 144/49 (80) 91 03/05/20 17:00 106 24 150/46 (80) 91 03/05/20 17:00 22 Mechanical Ventilator 80 03/05/20 17:00 150/46 03/05/20 16:30 103 24 145/51 (82) 92 03/05/20 16:00 103 03/05/20 16:00 80 03/05/20 16:00 22 Mechanical Ventilator 80 03/05/20 16:00 107/39 03/05/20 16:00 95 21 107/39 (61) 97 03/05/20 16:00 Mechanical Ventilator 03/05/20 15:45 85 20 108/37 (60) 99 03/05/20 15:30 85 20 119/41 (67) 99 03/05/20 15:24 86 20 119/39 (65) 98 03/05/20 15:20 85 20 80 03/05/20 15:15 88 20 76/28 (44) 97 03/05/20 15:00 89 19 119/42 (67) 99 03/05/20 15:00 24 Mechanical Ventilator 80 03/05/20 15:00 119/42 03/05/20 14:46 99/38 03/05/20 14:45 86 22 100/39 (59) 98 03/05/20 14:30 86 21 99/38 (58) 98 03/05/20 14:00 89 21 89/37 (54) 96 03/05/20 14:00 22 Mechanical Ventilator 80 03/05/20 14:00 89/37 03/05/20 13:45 88 22 93/37 (55) 97 03/05/20 13:30 91 22 114/41 (65) 99 03/05/20 13:00 92 22 112/41 (64) 99 03/05/20 13:00 22 Mechanical Ventilator 80 03/05/20 13:00 112/41 03/05/20 12:30 86 22 101/38 (59) 98 Intake and Output 03/06/20 03/07/20 19:00 07:00 Intake Total 1844.90405 ml 1602.5 ml Output Total 510 ml 1145 ml Balance 1334.45525 ml 457.5 ml Free Water 200 ml IV Total 1734.29961 ml 1342.5 ml Tube Feeding 110 ml 60 ml Output Urine Total 270 ml 700 ml Chest Tube Drainage Total 240 ml Other 445 ml Labs Test 03/04/20 12:15 03/04/20 13:50 03/05/20 04:00 03/06/20 03:30 Vancomycin Level Trough 34.1 ug/mL (5.0-12.0) 34.0 ug/mL (5.0-12.0) Lactate Dehydrogenase 591 U/L (81-234) White Blood Count 7.9 K/UL (4.8-10.8) 17.7 K/UL (4.8-10.8) Red Blood Count 2.18 M/UL (4.70-6.10) 3.26 M/UL (4.70-6.10) Hemoglobin 6.6 G/DL (14.2-18.0) 10.1 G/DL (14.2-18.0) Hematocrit 19.4 % (42.0-52.0) 29.9 % (42.0-52.0) Mean Corpuscular Volume 89 FL (80-99) 92 FL (80-99) Mean Corpuscular Hemoglobin 30.5 PG (27.0-31.0) 31.1 PG (27.0-31.0) Mean Corpuscular Hemoglobin Concent 34.3 G/DL (32.0-36.0) 33.8 G/DL (32.0-36.0) Red Cell Distribution Width 14.6 % (11.6-14.8) 15.2 % (11.6-14.8) Platelet Count 56 K/UL (150-450) 43 K/UL (150-450) Mean Platelet Volume 11.5 FL (6.5-10.1) 13.0 FL (6.5-10.1) Neutrophils (%) (Auto) % (45.0-75.0) % (45.0-75.0) Lymphocytes (%) (Auto) % (20.0-45.0) % (20.0-45.0) Monocytes (%) (Auto) % (1.0-10.0) % (1.0-10.0) Eosinophils (%) (Auto) % (0.0-3.0) % (0.0-3.0) Basophils (%) (Auto) % (0.0-2.0) % (0.0-2.0) Differential Total Cells Counted 100 100 Neutrophils % (Manual) 88 % (45-75) 87 % (45-75) Lymphocytes % (Manual) 4 % (20-45) 2 % (20-45) Monocytes % (Manual) 6 % (1-10) 2 % (1-10) Eosinophils % (Manual) 1 % (0-3) 0 % (0-3) Basophils % (Manual) 1 % (0-2) 0 % (0-2) Band Neutrophils 0 % (0-8) 9 % (0-8) Platelet Estimate Decreased Decreased Platelet Morphology Normal Normal Hypochromasia 4+ 1+ Anisocytosis 1+ 1+ Spherocytes 3+ Sodium Level 131 MMOL/L (136-145) 123 MMOL/L (136-145) Potassium Level 4.6 MMOL/L (3.5-5.1) 4.1 MMOL/L (3.5-5.1) Chloride Level 95 MMOL/L (98-107) 92 MMOL/L (98-107) Carbon Dioxide Level 31 MMOL/L (21-32) 30 MMOL/L (21-32) Anion Gap 5 mmol/L (5-15) 1 mmol/L (5-15) Blood Urea Nitrogen 31 mg/dL (7-18) 34 mg/dL (7-18) Creatinine 1.0 MG/DL (0.55-1.30) 1.2 MG/DL (0.55-1.30) Estimat Glomerular Filtration Rate > 60 mL/min (>60) 58.9 mL/min (>60) Glucose Level 141 MG/DL (74-106) 126 MG/DL (74-106) Calcium Level 6.9 MG/DL (8.5-10.1) 7.1 MG/DL (8.5-10.1) Total Bilirubin 8.8 MG/DL (0.2-1.0) Direct Bilirubin 7.4 MG/DL (0.0-0.3) Aspartate Amino Transf (AST/SGOT) 44 U/L (15-37) Alanine Aminotransferase (ALT/SGPT) 37 U/L (12-78) Alkaline Phosphatase 246 U/L (46-116) Total Protein 5.1 G/DL (6.4-8.2) Albumin 1.7 G/DL (3.4-5.0) Globulin 3.4 g/dL Albumin/Globulin Ratio 0.5 (1.0-2.7) Random Vancomycin Level 28.3 ug/mL 19.5 ug/mL Polychromasia 1+ Prothrombin Time 17.0 SEC (9.30-11.50) Prothromb Time International Ratio 1.6 (0.9-1.1) Activated Partial Thromboplast Time 33 SEC (23-33) Fibrinogen 466 mg/dL (200-400) D-Dimer 10.40 mg/L FEU (0.00-0.49) Phosphorus Level 2.4 MG/DL (2.5-4.9) Magnesium Level 1.9 MG/DL (1.8-2.4) Test 03/06/20 12:05 03/06/20 15:15 03/07/20 04:25 03/07/20 04:38 Urine Osmolality 311 mOsm/kg (429-449) Urine Random Sodium < 20 mmol/L (20-110) Ionized Calcium (Measured) 0.95 mmol/L (1.10-1.35) Urine Color Yellow Urine Appearance Slightly cloudy Urine pH 5 (4.5-8.0) Urine Specific [place] 1.015 (1.005-1.035) Urine Protein 2+ (NEGATIVE) Urine Glucose (UA) Negative (NEGATIVE) Urine Ketones Negative (NEGATIVE) Urine Blood 2+ (NEGATIVE) Urine Nitrite Negative (NEGATIVE) Urine Bilirubin 1+ (NEGATIVE) Urine Ictotest Negative (NEGATIVE) Urine Urobilinogen Normal MG/DL (0.0-1.0) Urine Leukocyte Esterase Negative (NEGATIVE) Urine RBC 0-2 /HPF (0 - 0) Urine WBC 2-4 /HPF (0 - 0) Urine Squamous Epithelial Cells Occasional /LPF Urine Amorphous Sediment Many /LPF (NONE) Urine Bacteria Occasional /HPF (NONE) White Blood Count 22.3 K/UL (4.8-10.8) Red Blood Count 2.75 M/UL (4.70-6.10) Hemoglobin 8.8 G/DL (14.2-18.0) Hematocrit 25.2 % (42.0-52.0) Mean Corpuscular Volume 92 FL (80-99) Mean Corpuscular Hemoglobin 31.9 PG (27.0-31.0) Mean Corpuscular Hemoglobin Concent 34.8 G/DL (32.0-36.0) Red Cell Distribution Width 15.6 % (11.6-14.8) Platelet Count 19 K/UL (150-450) Mean Platelet Volume 10.0 FL (6.5-10.1) Neutrophils (%) (Auto) % (45.0-75.0) Lymphocytes (%) (Auto) % (20.0-45.0) Monocytes (%) (Auto) % (1.0-10.0) Eosinophils (%) (Auto) % (0.0-3.0) Basophils (%) (Auto) % (0.0-2.0) Differential Total Cells Counted 100 Neutrophils % (Manual) 93 % (45-75) Lymphocytes % (Manual) 1 % (20-45) Monocytes % (Manual) 6 % (1-10) Eosinophils % (Manual) 0 % (0-3) Basophils % (Manual) 0 % (0-2) Band Neutrophils 0 % (0-8) Nucleated Red Blood Cells 1 /100 WBC Platelet Estimate Decreased Platelet Morphology Normal Hypochromasia 2+ Anisocytosis 1+ Spherocytes 1+ Sodium Level 129 MMOL/L (136-145) Potassium Level 3.8 MMOL/L (3.5-5.1) Chloride Level 94 MMOL/L (98-107) Carbon Dioxide Level 29 MMOL/L (21-32) Anion Gap 6 mmol/L (5-15) Blood Urea Nitrogen 37 mg/dL (7-18) Creatinine 1.2 MG/DL (0.55-1.30) Estimat Glomerular Filtration Rate 58.9 mL/min (>60) Glucose Level 121 MG/DL (74-106) Calcium Level 7.1 MG/DL (8.5-10.1) Phosphorus Level 3.8 MG/DL (2.5-4.9) Magnesium Level 2.0 MG/DL (1.8-2.4) Total Bilirubin 7.6 MG/DL (0.2-1.0) Direct Bilirubin 6.3 MG/DL (0.0-0.3) Aspartate Amino Transf (AST/SGOT) 42 U/L (15-37) Alanine Aminotransferase (ALT/SGPT) 27 U/L (12-78) Alkaline Phosphatase 177 U/L (46-116) Total Protein 4.8 G/DL (6.4-8.2) Albumin 1.7 G/DL (3.4-5.0) Globulin 3.1 g/dL Albumin/Globulin Ratio 0.5 (1.0-2.7) Test 03/07/20 09:00 Prothrombin Time 15.8 SEC (9.30-11.50) Prothromb Time International Ratio 1.5 (0.9-1.1) Activated Partial Thromboplast Time 39 SEC (23-33) Height (Feet): 5 Height (Inches): 5.00 Weight (Pounds): 147 Objective Physical Exam: Vitals: reviewed General: NAD HEENT: nc, at ++Ogt Neck: supple Chest: in the icu, remains intubated++, left chest tube+++ Cardiovascular: RRR, no s3, s4 Abdomen: soft, nontender, nd Extremities: no cce, normal range of motion Neuro: alert to self : Montez Maradiaga MD March 07, 2020 12:12
--- NOTE | 2020-03-07 13:45 | Surgery Progress Note ---
Surgery Progress Note Subjective Procedure Performed Left tube thoracostomy Additional Comments worsening leukocytosis anemia plt low chest tube with 300+serosang output in 24h ill appearing Objective Last 24 Hour Vital Signs Date Time Temp Pulse Resp B/P (MAP) Pulse Ox O2 Delivery O2 Flow Rate FiO2 03/07/20 13:00 103 23 134/57 (82) 94 03/07/20 13:00 23 Mechanical Ventilator 03/07/20 13:00 134/57 03/07/20 12:45 117/58 03/07/20 12:00 Mechanical Ventilator 03/07/20 12:00 97.7 96 20 117/58 (77) 94 03/07/20 12:00 20 Mechanical Ventilator 03/07/20 12:00 117/58 03/07/20 12:00 93 03/07/20 12:00 80 03/07/20 11:50 20 Mechanical Ventilator 03/07/20 11:30 91 20 95/49 (64) 94 03/07/20 11:15 93 20 107/48 (67) 94 03/07/20 11:00 20 Mechanical Ventilator 03/07/20 11:00 96/47 03/07/20 11:00 91 20 96/47 (63) 93 03/07/20 10:45 100 107/48 03/07/20 10:45 91 20 89/51 (64) 93 03/07/20 10:43 93 20 80 03/07/20 10:30 93 20 95/43 (60) 93 03/07/20 10:15 94 20 91/47 (62) 92 03/07/20 10:00 20 Mechanical Ventilator 03/07/20 10:00 94/48 03/07/20 10:00 95 20 94/48 (63) 92 03/07/20 09:00 22 Mechanical Ventilator 03/07/20 09:00 97/58 03/07/20 09:00 100 22 97/58 (71) 94 03/07/20 08:30 98 20 113/54 (73) 95 03/07/20 08:30 99 21 80 03/07/20 08:15 100 20 112/62 (79) 96 03/07/20 08:00 80 03/07/20 08:00 97.9 99 20 101/59 (73) 95 03/07/20 08:00 20 Mechanical Ventilator 03/07/20 08:00 101/59 5/11/20 08:00 99 03/07/20 08:00 Mechanical Ventilator 03/07/20 08:00 99 20 101/59 (73) 95 03/07/20 07:52 98 21 111/56 (74) 94 03/07/20 07:47 93 20 81/45 (57) 95 03/07/20 07:30 97 20 111/58 (75) 96 03/07/20 07:21 98 21 80 03/07/20 07:00 24 Mechanical Ventilator 70 03/07/20 07:00 107/50 03/07/20 07:00 96 21 107/50 (69) 95 03/07/20 06:30 98 20 110/57 (74) 95 03/07/20 06:30 96 23 03/07/20 06:00 97 20 120/56 (77) 94 03/07/20 06:00 23 Mechanical Ventilator 80 03/07/20 06:00 120/55 03/07/20 05:49 81/33 03/07/20 05:30 97 20 119/67 (84) 95 03/07/20 05:00 98 21 115/63 (80) 95 03/07/20 05:00 24 Mechanical Ventilator 80 03/07/20 05:00 115/63 03/07/20 04:30 97.3 90 20 91/51 (64) 95 03/07/20 04:00 Mechanical Ventilator 03/07/20 04:00 80 03/07/20 04:00 22 Mechanical Ventilator 80 03/07/20 04:00 109/59 03/07/20 04:00 96 21 109/59 (76) 95 03/07/20 04:00 98 03/07/20 03:30 96 21 118/59 (78) 97 03/07/20 03:29 104 23 80 03/07/20 03:19 97.6 03/07/20 03:00 96 20 108/51 (70) 95 03/07/20 03:00 23 Mechanical Ventilator 80 03/07/20 03:00 108/51 03/07/20 02:45 111/61 03/07/20 02:30 97 23 101/60 (74) 96 03/07/20 02:30 101/60 03/07/20 02:15 107/43 03/07/20 02:00 22 Mechanical Ventilator 90 03/07/20 02:00 83/53 03/07/20 02:00 97 21 83/53 (63) 96 03/07/20 01:45 119/38 03/07/20 01:30 97 16 118/54 (75) 93 03/07/20 01:30 118/54 03/07/20 01:15 138/61 03/07/20 01:00 102 20 135/63 (87) 99 03/07/20 01:00 24 Mechanical Ventilator 90 03/07/20 01:00 135/63 03/07/20 00:48 22 Mechanical Ventilator 90 03/07/20 00:45 128/58 03/07/20 00:30 97.6 94 20 110/71 (84) 99 03/07/20 00:30 110/71 03/07/20 00:15 109/50 03/07/20 00:00 21 Mechanical Ventilator 90 03/07/20 00:00 132/61 03/07/20 00:00 Mechanical Ventilator 03/07/20 00:00 102 23 132/61 (84) 97 03/06/20 23:45 102 21 139/58 (85) 97 03/06/20 23:45 139/58 03/06/20 23:30 101 20 126/58 (80) 97 03/06/20 23:30 126/58 03/06/20 23:16 108 21 100 03/06/20 23:15 139/62 03/06/20 23:00 22 Mechanical Ventilator 90 03/06/20 23:00 132/66 03/06/20 23:00 102 23 132/66 (88) 97 03/06/20 22:45 136/64 03/06/20 22:30 101 23 138/56 (83) 100 03/06/20 22:30 138/56 03/06/20 22:10 140/61 03/06/20 22:00 20 Mechanical Ventilator 100 03/06/20 22:00 140/61 03/06/20 22:00 99 22 140/61 (87) 100 03/06/20 21:30 140/60 03/06/20 21:30 103 20 142/60 (87) 99 03/06/20 21:00 106 22 142/55 (84) 99 03/06/20 21:00 24 Mechanical Ventilator 100 5/10/20 21:00 142/55 03/06/20 20:30 98.6 108 23 141/62 (88) 98 03/06/20 20:00 100 03/06/20 20:00 109 23 140/61 (87) 98 03/06/20 20:00 23 Mechanical Ventilator 100 03/06/20 20:00 140/61 03/06/20 20:00 107 03/06/20 20:00 Mechanical Ventilator 03/06/20 19:30 109 22 142/58 (86) 98 03/06/20 19:27 110 20 100 03/06/20 19:00 22 Mechanical Ventilator 03/06/20 19:00 141/57 03/06/20 19:00 107 21 141/57 (85) 98 03/06/20 18:00 112 20 132/58 (82) 98 03/06/20 17:30 112 21 133/53 (79) 98 03/06/20 17:00 21 Mechanical Ventilator 03/06/20 17:00 136/50 03/06/20 17:00 115 21 136/50 (78) 98 03/06/20 16:30 115 24 136/56 (82) 98 03/06/20 16:00 113 03/06/20 16:00 99.7 112 22 135/71 (92) 97 03/06/20 16:00 22 Mechanical Ventilator 03/06/20 16:00 135/71 03/06/20 16:00 Mechanical Ventilator 03/06/20 16:00 100 03/06/20 15:47 113 22 100 03/06/20 15:34 110/47 03/06/20 15:30 109 21 128/55 (79) 98 03/06/20 15:15 103 20 113/51 (71) 99 03/06/20 15:00 20 Mechanical Ventilator 03/06/20 15:00 113/48 03/06/20 15:00 104 20 113/48 (69) 98 03/06/20 14:00 106 20 110/47 (68) 99 03/06/20 14:00 20 Mechanical Ventilator 03/06/20 14:00 110/47 I&O Intake and Output 03/06/20 03/07/20 19:00 07:00 Intake Total 1844.68173 ml 1602.5 ml Output Total 510 ml 1145 ml Balance 1334.64986 ml 457.5 ml Free Water 200 ml IV Total 1734.29620 ml 1342.5 ml Tube Feeding 110 ml 60 ml Output Urine Total 270 ml 700 ml Chest Tube Drainage Total 240 ml Other 445 ml Dressing: other Wound: other Drains: other Cardiovascular: RSR Respiratory: decreased breath sounds Abdomen: soft, non-distended, decreased bowel sounds Extremities: no cyanosis, other Laboratory Tests Test 03/06/20 15:15 03/07/20 04:25 03/07/20 04:38 03/07/20 09:00 Ionized Calcium (Measured) 0.95 mmol/L (1.10-1.35) L Urine Color Yellow Urine Appearance Slightly cloudy Urine pH 5 (4.5-8.0) Urine Specific [place] 1.015 (1.005-1.035) Urine Protein 2+ (NEGATIVE) H Urine Glucose (UA) Negative (NEGATIVE) Urine Ketones Negative (NEGATIVE) Urine Blood 2+ (NEGATIVE) H Urine Nitrite Negative (NEGATIVE) Urine Bilirubin 1+ (NEGATIVE) H Urine Ictotest Negative (NEGATIVE) Urine Urobilinogen Normal MG/DL (0.0-1.0) Urine Leukocyte Esterase Negative (NEGATIVE) Urine RBC 0-2 /HPF (0 - 0) H Urine WBC 2-4 /HPF (0 - 0) Urine Squamous Epithelial Cells Occasional /LPF Urine Amorphous Sediment Many /LPF (NONE) H Urine Bacteria Occasional /HPF (NONE) White Blood Count 22.3 K/UL (4.8-10.8) *H Red Blood Count 2.75 M/UL (4.70-6.10) L Hemoglobin 8.8 G/DL (14.2-18.0) L Hematocrit 25.2 % (42.0-52.0) L Mean Corpuscular Volume 92 FL (80-99) Mean Corpuscular Hemoglobin 31.9 PG (27.0-31.0) H Mean Corpuscular Hemoglobin Concent 34.8 G/DL (32.0-36.0) Red Cell Distribution Width 15.6 % (11.6-14.8) H Platelet Count 19 K/UL (150-450) #L Mean Platelet Volume 10.0 FL (6.5-10.1) Neutrophils (%) (Auto) % (45.0-75.0) Lymphocytes (%) (Auto) % (20.0-45.0) Monocytes (%) (Auto) % (1.0-10.0) Eosinophils (%) (Auto) % (0.0-3.0) Basophils (%) (Auto) % (0.0-2.0) Differential Total Cells Counted 100 Neutrophils % (Manual) 93 % (45-75) H Lymphocytes % (Manual) 1 % (20-45) L Monocytes % (Manual) 6 % (1-10) Eosinophils % (Manual) 0 % (0-3) Basophils % (Manual) 0 % (0-2) Band Neutrophils 0 % (0-8) Nucleated Red Blood Cells 1 /100 WBC Platelet Estimate Decreased L Platelet Morphology Normal Hypochromasia 2+ Anisocytosis 1+ Spherocytes 1+ Sodium Level 129 MMOL/L (136-145) L Potassium Level 3.8 MMOL/L (3.5-5.1) Chloride Level 94 MMOL/L (98-107) L Carbon Dioxide Level 29 MMOL/L (21-32) Anion Gap 6 mmol/L (5-15) Blood Urea Nitrogen 37 mg/dL (7-18) H Creatinine 1.2 MG/DL (0.55-1.30) Estimat Glomerular Filtration Rate 58.9 mL/min (>60) Glucose Level 121 MG/DL (74-106) H Calcium Level 7.1 MG/DL (8.5-10.1) L Phosphorus Level 3.8 MG/DL (2.5-4.9) Magnesium Level 2.0 MG/DL (1.8-2.4) Total Bilirubin 7.6 MG/DL (0.2-1.0) H Direct Bilirubin 6.3 MG/DL (0.0-0.3) H Aspartate Amino Transf (AST/SGOT) 42 U/L (15-37) H Alanine Aminotransferase (ALT/SGPT) 27 U/L (12-78) Alkaline Phosphatase 177 U/L (46-116) H Total Protein 4.8 G/DL (6.4-8.2) L Albumin 1.7 G/DL (3.4-5.0) L Globulin 3.1 g/dL Albumin/Globulin Ratio 0.5 (1.0-2.7) L Prothrombin Time 15.8 SEC (9.30-11.50) H Prothromb Time International Ratio 1.5 (0.9-1.1) H Activated Partial Thromboplast Time 39 SEC (23-33) H Plan Problems: (1) Pneumothorax Assessment & Plan: Patient with bilateral pneumothoraces right slightly larger than left but both are very small. On the left side there is significant amount of subcutaneous emphysema extensively more than anything on the right side. 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 Given the x -ray findings and the extensive subtenons emphysema recommend placing a left- sided chest tube at this time with considerations for right side if necessary. Please see procedure note. Will follow and monitor 2. A.m. chest x-ray. Thank you participate in patient' s care AM CXR may need right chest tube chest tube to water seal cont chest tube f/u cxr Is a tiny sliver of a left apical pneumothorax, apex of the lung approximately 3 mm from the chest wall. There is a slightly larger but still small right apical pneumothorax, with the apex of the lung approximately 14 mm from the edge of the chest wall. There is extensive subcutaneous emphysema, particularly in the left anterior chest wall, but also seen in the bilateral supraclavicular fossae. The inferior right heart border is very well-defined. Uncertain as whether this represents a component of pneumomediastinum or a small medial pneumothorax. Stable tube and line positions, satisfactory. Bilateral infiltrates appear slightly improved as compared to the previous study. Impression: Since 02/26/2020, interim development of small bilateral pneumothoraces, right greater than left, and extensive subcutaneous emphysema. There may also be minimal pneumomediastinum. Bilateral infiltrates have improved somewhat in the interim. (2) Thrombocytopenia (3) Elevated LFTs (4) Diabetes mellitus (5) DVT (deep venous thrombosis) (6) History of hypertension (7) Cerebrovascular accident (CVA) (8) Alzheimer's dementia (9) Debility (10) Respiratory distress (11) Hypotension (12) Respiratory failure with hypoxia (13) Sepsis (14) Suspected COVID-19 virus infection Tip Sales March 07, 2020 13:45
--- NOTE | 2020-03-07 14:36 | Cardiac Electrophysiology PN ---
Assessment/Plan Assessment/Plan 1. Respiratory failure due to COVID pneumonia and CHF as BNP is more than 2000. Echo EF 50%. His white count however is only 7.2 with lymphopenia On the Vent 50% Fio2, No PEEP 2. Septic shock likely due to pneumonia and dehydration. On Levo 24 mcg and Abx. 3. CXR, Since 02/26/2020, interim development of small bilateral pneumothoraces, right greater than left, and extensive subcutaneous emphysema. There may also be minimal pneumomediastinum. S/P Left chest tube 03/02/20 4. Hypernatremia, resolved with IV fluids. 5. Dehydration. 6. Severe anemia s/p 2 units PRBC DW RN Subjective Subjective In ICU on Levo increased to 24 mcg on the vent with Fio2 50% and No PEEP . EF 50%. Covid PCR is positive. S/P Left chest tube placement 03/02/[address] Sales and draining to water seal Had 2 units of PRBC Objective Last 24 Hour Vital Signs Date Time Temp Pulse Resp B/P (MAP) Pulse Ox O2 Delivery O2 Flow Rate FiO2 03/07/20 14:00 106 27 123/56 (78) 90 03/07/20 14:00 27 Mechanical Ventilator 03/07/20 14:00 123/56 03/07/20 13:00 103 23 134/57 (82) 94 03/07/20 13:00 23 Mechanical Ventilator 03/07/20 13:00 134/57 03/07/20 12:45 117/58 03/07/20 12:00 Mechanical Ventilator 03/07/20 12:00 97.7 96 20 117/58 (77) 94 03/07/20 12:00 20 Mechanical Ventilator 03/07/20 12:00 117/58 03/07/20 12:00 93 03/07/20 12:00 80 03/07/20 11:50 20 Mechanical Ventilator 03/07/20 11:30 91 20 95/49 (64) 94 03/07/20 11:15 93 20 107/48 (67) 94 03/07/20 11:00 20 Mechanical Ventilator 03/07/20 11:00 96/47 03/07/20 11:00 91 20 96/47 (63) 93 03/07/20 10:45 100 107/48 03/07/20 10:45 91 20 89/51 (64) 93 03/07/20 10:43 93 20 80 03/07/20 10:30 93 20 95/43 (60) 93 03/07/20 10:15 94 20 91/47 (62) 92 03/07/20 10:00 20 Mechanical Ventilator 03/07/20 10:00 94/48 03/07/20 10:00 95 20 94/48 (63) 92 03/07/20 09:00 22 Mechanical Ventilator 03/07/20 09:00 97/58 03/07/20 09:00 100 22 97/58 (71) 94 03/07/20 08:30 98 20 113/54 (73) 95 03/07/20 08:30 99 21 80 03/07/20 08:15 100 20 112/62 (79) 96 03/07/20 08:00 80 03/07/20 08:00 97.9 99 20 101/59 (73) 95 03/07/20 08:00 20 Mechanical Ventilator 03/07/20 08:00 101/59 03/07/20 08:00 99 03/07/20 08:00 Mechanical Ventilator 03/07/20 08:00 99 20 101/59 (73) 95 03/07/20 07:52 98 21 111/56 (74) 94 03/07/20 07:47 93 20 81/45 (57) 95 03/07/20 07:30 97 20 111/58 (75) 96 03/07/20 07:21 98 21 80 03/07/20 07:00 24 Mechanical Ventilator 70 03/07/20 07:00 107/50 03/07/20 07:00 96 21 107/50 (69) 95 03/07/20 06:30 98 20 110/57 (74) 95 03/07/20 06:30 96 23 03/07/20 06:00 97 20 120/56 (77) 94 03/07/20 06:00 23 Mechanical Ventilator 80 03/07/20 06:00 120/55 03/07/20 05:49 81/33 03/07/20 05:30 97 20 119/67 (84) 95 03/07/20 05:00 98 21 115/63 (80) 95 03/07/20 05:00 24 Mechanical Ventilator 80 03/07/20 05:00 115/63 03/07/20 04:30 97.3 90 20 91/51 (64) 95 03/07/20 04:00 Mechanical Ventilator 03/07/20 04:00 80 03/07/20 04:00 22 Mechanical Ventilator 80 03/07/20 04:00 109/59 03/07/20 04:00 96 21 109/59 (76) 95 03/07/20 04:00 98 03/07/20 03:30 96 21 118/59 (78) 97 03/07/20 03:29 104 23 80 03/07/20 03:19 97.6 03/07/20 03:00 96 20 108/51 (70) 95 03/07/20 03:00 23 Mechanical Ventilator 80 03/07/20 03:00 108/51 03/07/20 02:45 111/61 03/07/20 02:30 97 23 101/60 (74) 96 03/07/20 02:30 101/60 03/07/20 02:15 107/43 03/07/20 02:00 22 Mechanical Ventilator 90 03/07/20 02:00 83/53 03/07/20 02:00 97 21 83/53 (63) 96 03/07/20 01:45 119/38 03/07/20 01:30 97 16 118/54 (75) 93 03/07/20 01:30 118/54 03/07/20 01:15 138/61 03/07/20 01:00 102 20 135/63 (87) 99 03/07/20 01:00 24 Mechanical Ventilator 90 03/07/20 01:00 135/63 03/07/20 00:48 22 Mechanical Ventilator 90 03/07/20 00:45 128/58 03/07/20 00:30 97.6 94 20 110/71 (84) 99 03/07/20 00:30 110/71 03/07/20 00:15 109/50 03/07/20 00:00 21 Mechanical Ventilator 90 03/07/20 00:00 132/61 03/07/20 00:00 Mechanical Ventilator 03/07/20 00:00 102 23 132/61 (84) 97 03/06/20 23:45 102 21 139/58 (85) 97 03/06/20 23:45 139/58 03/06/20 23:30 101 20 126/58 (80) 97 03/06/20 23:30 126/58 03/06/20 23:16 108 21 100 03/06/20 23:15 139/62 03/06/20 23:00 22 Mechanical Ventilator 90 03/06/20 23:00 132/66 03/06/20 23:00 102 23 132/66 (88) 97 03/06/20 22:45 136/64 03/06/20 22:30 101 23 138/56 (83) 100 03/06/20 22:30 138/56 03/06/20 22:10 140/61 03/06/20 22:00 20 Mechanical Ventilator 100 03/06/20 22:00 140/61 03/06/20 22:00 99 22 140/61 (87) 100 03/06/20 21:30 140/60 03/06/20 21:30 103 20 142/60 (87) 99 03/06/20 21:00 106 22 142/55 (84) 99 03/06/20 21:00 24 Mechanical Ventilator 100 03/06/20 21:00 142/55 03/06/20 20:30 98.6 108 23 141/62 (88) 98 03/06/20 20:00 100 03/06/20 20:00 109 23 140/61 (87) 98 03/06/20 20:00 23 Mechanical Ventilator 100 03/06/20 20:00 140/61 03/06/20 20:00 107 03/06/20 20:00 Mechanical Ventilator 03/06/20 19:30 109 22 142/58 (86) 98 03/06/20 19:27 110 20 100 03/06/20 19:00 22 Mechanical Ventilator 03/06/20 19:00 141/57 03/06/20 19:00 107 21 141/57 (85) 98 03/06/20 18:00 112 20 132/58 (82) 98 03/06/20 17:30 112 21 133/53 (79) 98 03/06/20 17:00 21 Mechanical Ventilator 03/06/20 17:00 136/50 03/06/20 17:00 115 21 136/50 (78) 98 03/06/20 16:30 115 24 136/56 (82) 98 03/06/20 16:00 113 03/06/20 16:00 99.7 112 22 135/71 (92) 97 03/06/20 16:00 22 Mechanical Ventilator 03/06/20 16:00 135/71 03/06/20 16:00 Mechanical Ventilator 03/06/20 16:00 100 03/06/20 15:47 113 22 100 03/06/20 15:34 110/47 03/06/20 15:30 109 21 128/55 (79) 98 03/06/20 15:15 103 20 113/51 (71) 99 03/06/20 15:00 20 Mechanical Ventilator 03/06/20 15:00 113/48 03/06/20 15:00 104 20 113/48 (69) 98 Intake and Output 03/06/20 03/07/20 19:00 07:00 Intake Total 1844.14510 ml 1602.5 ml Output Total 510 ml 1145 ml Balance 1334.91135 ml 457.5 ml Free Water 200 ml IV Total 1734.96728 ml 1342.5 ml Tube Feeding 110 ml 60 ml Output Urine Total 270 ml 700 ml Chest Tube Drainage Total 240 ml Other 445 ml Laboratory Tests Test 03/06/20 15:15 03/07/20 04:25 03/07/20 04:38 03/07/20 09:00 Ionized Calcium (Measured) 0.95 mmol/L (1.10-1.35) L Urine Color Yellow Urine Appearance Slightly cloudy Urine pH 5 (4.5-8.0) Urine Specific [place] 1.015 (1.005-1.035) Urine Protein 2+ (NEGATIVE) H Urine Glucose (UA) Negative (NEGATIVE) Urine Ketones Negative (NEGATIVE) Urine Blood 2+ (NEGATIVE) H Urine Nitrite Negative (NEGATIVE) Urine Bilirubin 1+ (NEGATIVE) H Urine Ictotest Negative (NEGATIVE) Urine Urobilinogen Normal MG/DL (0.0-1.0) Urine Leukocyte Esterase Negative (NEGATIVE) Urine RBC 0-2 /HPF (0 - 0) H Urine WBC 2-4 /HPF (0 - 0) Urine Squamous Epithelial Cells Occasional /LPF Urine Amorphous Sediment Many /LPF (NONE) H Urine Bacteria Occasional /HPF (NONE) White Blood Count 22.3 K/UL (4.8-10.8) *H Red Blood Count 2.75 M/UL (4.70-6.10) L Hemoglobin 8.8 G/DL (14.2-18.0) L Hematocrit 25.2 % (42.0-52.0) L Mean Corpuscular Volume 92 FL (80-99) Mean Corpuscular Hemoglobin 31.9 PG (27.0-31.0) H Mean Corpuscular Hemoglobin Concent 34.8 G/DL (32.0-36.0) Red Cell Distribution Width 15.6 % (11.6-14.8) H Platelet Count 19 K/UL (150-450) #L Mean Platelet Volume 10.0 FL (6.5-10.1) Neutrophils (%) (Auto) % (45.0-75.0) Lymphocytes (%) (Auto) % (20.0-45.0) Monocytes (%) (Auto) % (1.0-10.0) Eosinophils (%) (Auto) % (0.0-3.0) Basophils (%) (Auto) % (0.0-2.0) Differential Total Cells Counted 100 Neutrophils % (Manual) 93 % (45-75) H Lymphocytes % (Manual) 1 % (20-45) L Monocytes % (Manual) 6 % (1-10) Eosinophils % (Manual) 0 % (0-3) Basophils % (Manual) 0 % (0-2) Band Neutrophils 0 % (0-8) Nucleated Red Blood Cells 1 /100 WBC Platelet Estimate Decreased L Platelet Morphology Normal Hypochromasia 2+ Anisocytosis 1+ Spherocytes 1+ Sodium Level 129 MMOL/L (136-145) L Potassium Level 3.8 MMOL/L (3.5-5.1) Chloride Level 94 MMOL/L (98-107) L Carbon Dioxide Level 29 MMOL/L (21-32) Anion Gap 6 mmol/L (5-15) Blood Urea Nitrogen 37 mg/dL (7-18) H Creatinine 1.2 MG/DL (0.55-1.30) Estimat Glomerular Filtration Rate 58.9 mL/min (>60) Glucose Level 121 MG/DL (74-106) H Calcium Level 7.1 MG/DL (8.5-10.1) L Phosphorus Level 3.8 MG/DL (2.5-4.9) Magnesium Level 2.0 MG/DL (1.8-2.4) Total Bilirubin 7.6 MG/DL (0.2-1.0) H Direct Bilirubin 6.3 MG/DL (0.0-0.3) H Aspartate Amino Transf (AST/SGOT) 42 U/L (15-37) H Alanine Aminotransferase (ALT/SGPT) 27 U/L (12-78) Alkaline Phosphatase 177 U/L (46-116) H Total Protein 4.8 G/DL (6.4-8.2) L Albumin 1.7 G/DL (3.4-5.0) L Globulin 3.1 g/dL Albumin/Globulin Ratio 0.5 (1.0-2.7) L Prothrombin Time 15.8 SEC (9.30-11.50) H Prothromb Time International Ratio 1.5 (0.9-1.1) H Activated Partial Thromboplast Time 39 SEC (23-33) H Microbiology Date/Time Source Procedure Growth Status 03/06/20 12:05 Urine,Clean Catch Urine Culture - Preliminary NO GROWTH Resulted Objective HEAD AND NECK: No JVD orally intubated. LUNGS: Decreased breath sounds and coarse rhonchi. SQ emphesyma Left chest tube is in CARDIOVASCULAR: Regular S1 and S2 with no gallop. ABDOMEN: Soft. EXTREMITIES: No pitting edema. Deric Garcia MD March 07, 2020 14:36
--- NOTE | 2020-03-07 16:45 | Pulmonology Progress Note ---
Subjective ROS Limited/Unobtainable: No Interval Events: Remains intubtaed; was intubated on 02/22/20 Constitutional: Reports: fever, other - on vent, on pressors HEENT: Repors: no symptoms Respiratory: Reports: no symptoms Cardiovascular: Reports: no symptoms Gastrointestinal/Abdominal: Reports: other - no diarrhea ; Denies: nausea, vomiting, diarrhea Genitourinary: Reports: no symptoms Psychiatric: Reports: other - NA Skin: Denies: rash Endocrine: Reports: no symptoms Musculoskeletal: Reports: other - NA Allergies: Coded Allergies: No Known Allergies (Unverified , 01/19/19) All Systems: reviewed and negative except above Subjective seen and evaluated Discussed with RN Left chest tube placed by surgery Objective Last 24 Hour Vital Signs Date Time Temp Pulse Resp B/P (MAP) Pulse Ox O2 Delivery O2 Flow Rate FiO2 03/07/20 16:15 105 22 128/62 (84) 96 03/07/20 16:00 90 03/07/20 16:00 103 20 131/72 (91) 97 03/07/20 16:00 Mechanical Ventilator 03/07/20 15:30 100 21 90 03/07/20 15:15 103 23 123/68 (86) 96 03/07/20 15:06 22 Mechanical Ventilator 03/07/20 15:00 103 23 131/71 (91) 95 03/07/20 15:00 23 Mechanical Ventilator 03/07/20 15:00 131/71 03/07/20 14:30 101 22 127/63 (84) 95 03/07/20 14:15 104 25 125/65 (85) 94 03/07/20 14:15 27 Mechanical Ventilator 03/07/20 14:00 106 27 123/56 (78) 90 03/07/20 14:00 27 Mechanical Ventilator 03/07/20 14:00 123/56 03/07/20 14:00 90 03/07/20 13:41 108 28 80 03/07/20 13:30 105 26 119/79 (92) 91 03/07/20 13:00 103 23 134/57 (82) 94 03/07/20 13:00 23 Mechanical Ventilator 03/07/20 13:00 134/57 03/07/20 12:45 117/58 03/07/20 12:00 Mechanical Ventilator 5/11/20 12:00 97.7 96 20 117/58 (77) 94 03/07/20 12:00 20 Mechanical Ventilator 03/07/20 12:00 117/58 03/07/20 12:00 93 03/07/20 12:00 80 03/07/20 11:50 20 Mechanical Ventilator 03/07/20 11:30 91 20 95/49 (64) 94 03/07/20 11:15 93 20 107/48 (67) 94 03/07/20 11:00 20 Mechanical Ventilator 03/07/20 11:00 96/47 03/07/20 11:00 91 20 96/47 (63) 93 03/07/20 10:45 100 107/48 03/07/20 10:45 91 20 89/51 (64) 93 03/07/20 10:43 93 20 80 03/07/20 10:30 93 20 95/43 (60) 93 03/07/20 10:15 94 20 91/47 (62) 92 03/07/20 10:00 20 Mechanical Ventilator 03/07/20 10:00 94/48 03/07/20 10:00 95 20 94/48 (63) 92 03/07/20 09:00 22 Mechanical Ventilator 03/07/20 09:00 97/58 03/07/20 09:00 100 22 97/58 (71) 94 03/07/20 08:30 98 20 113/54 (73) 95 03/07/20 08:30 99 21 80 03/07/20 08:15 100 20 112/62 (79) 96 03/07/20 08:00 80 03/07/20 08:00 97.9 99 20 101/59 (73) 95 03/07/20 08:00 20 Mechanical Ventilator 03/07/20 08:00 101/59 03/07/20 08:00 99 03/07/20 08:00 Mechanical Ventilator 03/07/20 08:00 99 20 101/59 (73) 95 03/07/20 07:52 98 21 111/56 (74) 94 03/07/20 07:47 93 20 81/45 (57) 95 03/07/20 07:30 97 20 111/58 (75) 96 03/07/20 07:21 98 21 80 03/07/20 07:00 24 Mechanical Ventilator 70 03/07/20 07:00 107/50 5/11/20 07:00 96 21 107/50 (69) 95 03/07/20 06:30 98 20 110/57 (74) 95 03/07/20 06:30 96 23 03/07/20 06:00 97 20 120/56 (77) 94 03/07/20 06:00 23 Mechanical Ventilator 80 03/07/20 06:00 120/55 03/07/20 05:49 81/33 03/07/20 05:30 97 20 119/67 (84) 95 03/07/20 05:00 98 21 115/63 (80) 95 03/07/20 05:00 24 Mechanical Ventilator 80 03/07/20 05:00 115/63 03/07/20 04:30 97.3 90 20 91/51 (64) 95 03/07/20 04:00 Mechanical Ventilator 03/07/20 04:00 80 03/07/20 04:00 22 Mechanical Ventilator 80 03/07/20 04:00 109/59 03/07/20 04:00 96 21 109/59 (76) 95 03/07/20 04:00 98 03/07/20 03:30 96 21 118/59 (78) 97 03/07/20 03:29 104 23 80 03/07/20 03:19 97.6 03/07/20 03:00 96 20 108/51 (70) 95 03/07/20 03:00 23 Mechanical Ventilator 80 03/07/20 03:00 108/51 03/07/20 02:45 111/61 03/07/20 02:30 97 23 101/60 (74) 96 03/07/20 02:30 101/60 03/07/20 02:15 107/43 03/07/20 02:00 22 Mechanical Ventilator 90 03/07/20 02:00 83/53 03/07/20 02:00 97 21 83/53 (63) 96 03/07/20 01:45 119/38 03/07/20 01:30 97 16 118/54 (75) 93 03/07/20 01:30 118/54 03/07/20 01:15 138/61 03/07/20 01:00 102 20 135/63 (87) 99 03/07/20 01:00 24 Mechanical Ventilator 90 03/07/20 01:00 135/63 03/07/20 00:48 22 Mechanical Ventilator 90 03/07/20 00:45 128/58 03/07/20 00:30 97.6 94 20 110/71 (84) 99 03/07/20 00:30 110/71 03/07/20 00:15 109/50 03/07/20 00:00 21 Mechanical Ventilator 90 03/07/20 00:00 132/61 03/07/20 00:00 Mechanical Ventilator 03/07/20 00:00 102 23 132/61 (84) 97 03/06/20 23:45 102 21 139/58 (85) 97 03/06/20 23:45 139/58 03/06/20 23:30 101 20 126/58 (80) 97 03/06/20 23:30 126/58 03/06/20 23:16 108 21 100 03/06/20 23:15 139/62 03/06/20 23:00 22 Mechanical Ventilator 90 03/06/20 23:00 132/66 03/06/20 23:00 102 23 132/66 (88) 97 03/06/20 22:45 136/64 03/06/20 22:30 101 23 138/56 (83) 100 03/06/20 22:30 138/56 03/06/20 22:10 140/61 03/06/20 22:00 20 Mechanical Ventilator 100 03/06/20 22:00 140/61 03/06/20 22:00 99 22 140/61 (87) 100 03/06/20 21:30 140/60 03/06/20 21:30 103 20 142/60 (87) 99 03/06/20 21:00 106 22 142/55 (84) 99 03/06/20 21:00 24 Mechanical Ventilator 100 03/06/20 21:00 142/55 03/06/20 20:30 98.6 108 23 141/62 (88) 98 03/06/20 20:00 100 03/06/20 20:00 109 23 140/61 (87) 98 03/06/20 20:00 23 Mechanical Ventilator 100 03/06/20 20:00 140/61 03/06/20 20:00 107 03/06/20 20:00 Mechanical Ventilator 03/06/20 19:30 109 22 142/58 (86) 98 03/06/20 19:27 110 20 100 03/06/20 19:00 22 Mechanical Ventilator 03/06/20 19:00 141/57 03/06/20 19:00 107 21 141/57 (85) 98 03/06/20 18:00 112 20 132/58 (82) 98 03/06/20 17:30 112 21 133/53 (79) 98 03/06/20 17:00 21 Mechanical Ventilator 03/06/20 17:00 136/50 03/06/20 17:00 115 21 136/50 (78) 98 Intake and Output 03/06/20 03/07/20 19:00 07:00 Intake Total 1844.15177 ml 1602.5 ml Output Total 510 ml 1145 ml Balance 1334.78402 ml 457.5 ml Free Water 200 ml IV Total 1734.45744 ml 1342.5 ml Tube Feeding 110 ml 60 ml Output Urine Total 270 ml 700 ml Chest Tube Drainage Total 240 ml Other 445 ml General Appearance: other - on vent and pressors HEENT: normocephalic, atraumatic, anicteric Respiratory/Chest: chest wall non-tender, decreased breath sounds, other - hAS SUB CUT EMPHYSEMA LEWFT SIDE Cardiovascular: normal peripheral pulses Abdomen: normal bowel sounds, soft, non tender, no organomegaly, non distended Genitourinary: other - + rush Extremities: no cyanosis Skin: no rash Neurologic/Psychiatric: motor weakness, other - lethargic, weak Lymphatic: no neck adenopathy Musculoskeletal: no effusion Microbiology Date/Time Source Procedure Growth Status 03/06/20 12:05 Urine,Clean Catch Urine Culture - Preliminary NO GROWTH Resulted Laboratory Tests 03/07/20 04:25: Urine Color Yellow, Urine Appearance Slightly cloudy, Urine pH 5, Urine Specific [place] 1.015, Urine Protein 2+H, Urine Glucose (UA) Negative, Urine Ketones Negative, Urine Blood 2+H, Urine Nitrite Negative, Urine Bilirubin 1+H, Urine Ictotest Negative, Urine Urobilinogen Normal, Urine Leukocyte Esterase Negative, Urine RBC 0-2H, Urine WBC 2-4, Urine Squamous Epithelial Cells Occasional, Urine Amorphous Sediment ManyH, Urine Bacteria Occasional 03/07/20 04:38: White Blood Count 22.3*H, Red Blood Count 2.75L, Hemoglobin 8.8L, Hematocrit 25.2L, Mean Corpuscular Volume 92, Mean Corpuscular Hemoglobin 31.9H, Mean Corpuscular Hemoglobin Concent 34.8, Red Cell Distribution Width 15.6H, Platelet Count 19#L, Mean Platelet Volume 10.0, Neutrophils (%) (Auto) , Lymphocytes (%) (Auto) , Monocytes (%) (Auto) , Eosinophils (%) (Auto) , Basophils (%) (Auto) , Differential Total Cells Counted 100, Neutrophils % ( Manual) 93H, Lymphocytes % (Manual) 1L, Monocytes % (Manual) 6, Eosinophils % ( Manual) 0, Basophils % (Manual) 0, Band Neutrophils 0, Nucleated Red Blood Cells 1, Platelet Estimate DecreasedL, Platelet Morphology Normal, Hypochromasia 2+, Anisocytosis 1+, Spherocytes 1+, Sodium Level 129L, Potassium Level 3.8, Chloride Level 94L, Carbon Dioxide Level 29, Anion Gap 6, Blood Urea Nitrogen 37H, Creatinine 1.2, Estimat Glomerular Filtration Rate 58.9, Glucose Level 121H, Calcium Level 7.1L, Phosphorus Level 3.8, Magnesium Level 2.0, Total Bilirubin 7.6H, Direct Bilirubin 6.3H, Aspartate Amino Transf (AST/SGOT) 42H, Alanine Aminotransferase (ALT/SGPT) 27, Alkaline Phosphatase 177H, Total Protein 4.8L, Albumin 1.7L, Globulin 3.1, Albumin/Globulin Ratio 0.5L 03/07/20 09:00: Prothrombin Time 15.8H, Prothromb Time International Ratio 1.5H, Activated Partial Thromboplast Time 39H Current Medications Medications (Trade) Dose Ordered Sig/Cirilo Route PRN Reason Start Time Stop Time Status Last Admin Dose Admin Acetaminophen (Tylenol) 650 mg Q4H PRN ORAL Fever 02/22/20 14:15 03/23/20 14:14 02/28/20 17:52 Acetaminophen (Tylenol) 650 mg Q4H PRN ORAL Mild Pain (Pain Scale 1-3) 02/22/20 14:15 03/23/20 14:14 03/03/20 17:31 Acetaminophen (Tylenol) 650 mg Q4H PRN RECTAL Mild Pain (Pain Scale 1-3) 02/22/20 14:15 03/23/20 14:14 02/22/20 21:28 Acetaminophen (Tylenol) 650 mg Q4H PRN RECTAL FEVER 02/22/20 14:15 03/23/20 14:14 03/06/20 04:20 Cefepime HCl 2 gm/ Dextrose 100 ml @ 200 mls/hr Q12HR IVPB 03/06/20 21:00 03/13/20 20:59 03/07/20 08:49 Chlorhexidine Gluconate (Maira-Hex 2%) 1 applic DAILY@2000 TOPIC 02/23/20 20:00 05/23/20 19:59 03/06/20 20:26 Dextrose (Dextrose 50%) 25 ml Q30M PRN IV Hypoglycemia 02/23/20 09:00 05/23/20 08:59 Dextrose (Dextrose 50%) 50 ml Q30M PRN IV Hypoglycemia 02/23/20 09:00 05/23/20 08:59 Diphenhydramine HCl (Benadryl) 25 mg Q6H PRN ORAL Itching/Pruritis 02/22/20 14:15 03/23/20 14:14 02/26/20 01:34 Fentanyl Citrate 2500 mcg/Sodium Chloride 250 ml @ 0 mls/hr Q24H IV 03/01/20 19:45 03/08/20 19:44 03/07/20 11:50 Fluconazole/ Sodium Chloride 200 ml @ 200 mls/hr Q24H IV 03/06/20 20:00 03/13/20 19:59 03/06/20 20:26 Insulin Aspart (NovoLOG) Q6HR SUBQ 02/28/20 18:00 05/28/20 17:59 03/07/20 11:21 Metoclopramide HCl (Reglan) 5 mg Q6HR IVP 03/01/20 12:00 03/31/20 11:59 03/07/20 11:00 Metronidazole (Flagyl) 500 mg EVERY 8 HOURS ORAL 03/06/20 22:00 03/13/20 21:59 03/07/20 13:53 Midazolam HCl 100 ml @ 0 mls/hr Q24H IV 02/26/20 15:06 05/26/20 15:05 02/26/20 15:48 Norepinephrine Bitartrate 8 mg/ Dextrose 500 ml @ 0 mls/hr Q24H IV 02/23/20 19:01 03/24/20 19:00 03/07/20 12:45 Pantoprazole (Protonix) 40 mg DAILY IVP 02/23/20 09:30 03/24/20 09:29 03/07/20 08:48 Phenylephrine HCl 50 mg/Dextrose 250 ml @ 6 mls/hr Q24H IV 02/29/20 10:45 03/30/20 10:44 03/04/20 04:43 Vancomycin HCl (Vanco rx to dose) 1 ea DAILY PRN MISC Per rx protocol 03/06/20 18:15 04/05/20 18:14 Assessment/Plan Assessment/Plan IMPRESSION: 1. Respiratory failure. 2. Bilateral pneumonia. + COVID 19 3. Pulmonary edema. 4. Diabetes mellitus. 5. Left PTX with subcut emphysema; s/p chest tube DISCUSSION: Positive COVID 19 pcr The patient is critically ill at this point in time. Poor prognosis Continue pressors Continue broad-spectrum antibiotics. Continue respiratory support; will adjust vent settings I will follow carefully. S/p chest tube Continue Ac mode 100 FiO2 and PEEP 5 SaO2 97% Decreased PEEP due to PTX Martine Rodriguez Omar Syed MD March 07, 2020 16:45
[2020-03-07] MEDS ORDERED: Tubing IV Secondary IV ONE (17:10)
[2020-03-07] MEDS: Dyna-Hex 2% Top Sol 2oz TOPIC SCH (20:12)
[2020-03-08] VITALS (79 sets, daily range): BP systolic 49–138; BP diastolic 19–90
[2020-03-08] MEDS: Norepinephrine Bitartrate 8 MG in D5W 500ml 492 ML IV SCH ×4 (02:28→18:15)
[2020-03-08] MEDS: metroNIDAZOLE 500mg tab ORAL SCH ×3 (05:26→21:19)
[2020-03-08] MEDS: Metoclopramide 10mg/2ml Inj IVP SCH ×4 (05:26→23:30)
[2020-03-08] MEDS: fentaNYL Citrate 2,500 MCG in NS 200 ML IV SCH ×2 (05:32→22:15)
[2020-03-08] MEDS: NovoLOG Insulin Flexpen SUBQ SCH ×4 (06:16→23:37)
[2020-03-08 07:21] LABS: ALANINE AMINOTRANSFERASE 29 U/L (12-78); ALBUMIN 1.9 G/DL (3.4-5.0); ALBUMIN/GLOBULIN RATIO 0.5 (1.0-2.7); ALKALINE PHOSPHATASE 173 U/L (46-116); ANION GAP 11 mmol/L (5-15); ASPARTATE AMINO TRANSFERASE 43 U/L (15-37); BILIRUBIN,TOTAL 7.3 MG/DL (0.2-1.0); CALCIUM 7.3 MG/DL (8.5-10.1); CARBON DIOXIDE 25 MMOL/L (21-32); CHLORIDE 94 MMOL/L (98-107); CREATININE 1.5 MG/DL (0.55-1.30); POTASSIUM 4.5 MMOL/L (3.5-5.1); SODIUM 130 MMOL/L (136-145)
[2020-03-08 07:31] LABS: BILIRUBIN,DIRECT 5.3 MG/DL (0.0-0.3); BLOOD UREA NITROGEN 37 mg/dL (7-18)
[2020-03-08 07:37] LABS: HEMATOCRIT 29.9 % (42.0-52.0); HEMOGLOBIN 10.1 G/DL (14.2-18.0); MEAN CORPUSCULAR VOLUME 94 FL (80-99); RED BLOOD COUNT 3.19 M/UL (4.70-6.10); RED CELL DISTRIBUTION WIDTH 15.4 % (11.6-14.8); WHITE BLOOD COUNT 15.1 K/UL (4.8-10.8)
--- NOTE | 2020-03-08 07:38 | General Progress Note ---
Assessment/Plan Problem List: (1) Elevated LFTs ICD Codes: R79.89 - Other specified abnormal findings of blood chemistry SNOMED: 937230912, 284246310 (2) Thrombocytopenia ICD Codes: D69.6 - Thrombocytopenia, unspecified SNOMED: 106930971 (3) Suspected COVID-19 virus infection ICD Codes: Z20.828 - Contact with and (suspected) exposure to other viral communicable diseases SNOMED: 667556865 (4) Respiratory failure with hypoxia ICD Codes: J96.91 - Respiratory failure, unspecified with hypoxia SNOMED: 97621259992296715 Qualifiers: Qualified Codes: J96.01 - Acute respiratory failure with hypoxia (5) Hypotension ICD Codes: I95.9 - Hypotension, unspecified SNOMED: 83049105 Qualifiers: Qualified Codes: I95.9 - Hypotension, unspecified (6) Alzheimer's dementia ICD Codes: G30.9 - Alzheimer's disease, unspecified; F02.80 - Dementia in other diseases classified elsewhere without behavioral disturbance SNOMED: 29044166 (7) Cerebrovascular accident (CVA) ICD Codes: I63.9 - Cerebral infarction, unspecified SNOMED: 598847322 (8) History of hypertension ICD Codes: Z86.79 - Personal history of other diseases of the circulatory system SNOMED: 643034300 (9) Diabetes mellitus ICD Codes: E11.9 - Type 2 diabetes mellitus without complications SNOMED: 10635039 Status: unchanged Assessment/Plan: reglan monitor for residuals fu labs abx per ID elevated TB most likely due to sepsis current TF at 20 cc, >>> will increase to 30 cc poor prognosis Subjective ROS Limited/Unobtainable: No Allergies: Coded Allergies: No Known Allergies (Unverified , 01/19/19) Objective Last 24 Hour Vital Signs Date Time Temp Pulse Resp B/P (MAP) Pulse Ox O2 Delivery O2 Flow Rate FiO2 03/08/20 07:00 110 19 106/56 (73) 91 03/08/20 07:00 23 Mechanical Ventilator 90 03/08/20 07:00 109/56 03/08/20 06:30 110 22 03/08/20 06:16 98.3 03/08/20 06:00 112 24 114/58 (76) 93 03/08/20 06:00 24 Mechanical Ventilator 90 5/12/20 06:00 114/58 03/08/20 05:32 22 Mechanical Ventilator 80 03/08/20 05:30 110 24 101/58 (72) 89 03/08/20 05:00 109 23 114/65 (81) 91 03/08/20 05:00 22 Mechanical Ventilator 90 03/08/20 05:00 114/65 03/08/20 04:30 108 24 109/59 (76) 92 03/08/20 04:00 98.3 107 22 101/70 (80) 95 03/08/20 04:00 90 03/08/20 04:00 23 Mechanical Ventilator 90 03/08/20 04:00 101/70 03/08/20 04:00 103 03/08/20 04:00 Mechanical Ventilator 03/08/20 03:30 108 22 111/81 (91) 95 03/08/20 03:30 108 23 90 03/08/20 03:00 108 22 102/79 (87) 95 03/08/20 03:00 23 Mechanical Ventilator 90 03/08/20 03:00 102/79 03/08/20 02:30 108 23 103/61 (75) 95 03/08/20 02:28 114/58 03/08/20 02:00 23 Mechanical Ventilator 90 03/08/20 02:00 115/57 03/08/20 02:00 111 23 115/57 (76) 95 03/08/20 01:30 110 22 111/62 (78) 96 03/08/20 01:00 110 23 106/90 (95) 95 03/08/20 01:00 22 Mechanical Ventilator 90 03/08/20 01:00 106/90 03/08/20 00:30 107 21 128/61 (83) 94 03/08/20 00:00 107 03/08/20 00:00 Mechanical Ventilator 03/08/20 00:00 23 Mechanical Ventilator 90 03/08/20 00:00 92/64 03/08/20 00:00 90 03/08/20 00:00 103 21 88/64 (72) 95 03/07/20 23:30 102 20 90 03/07/20 23:00 23 Mechanical Ventilator 90 03/07/20 23:00 123/66 03/07/20 23:00 108 20 123/66 (85) 95 03/07/20 22:30 111 19 117/70 (86) 94 03/07/20 22:00 108 23 107/70 (82) 95 03/07/20 22:00 22 Mechanical Ventilator 90 03/07/20 22:00 107/70 03/07/20 21:30 109 22 118/67 (84) 97 03/07/20 21:00 90 03/07/20 21:00 103 03/07/20 21:00 24 Mechanical Ventilator 90 03/07/20 21:00 115/63 03/07/20 21:00 106 27 115/63 (80) 94 03/07/20 20:30 107 23 120/58 (78) 95 03/07/20 20:00 22 Mechanical Ventilator 90 03/07/20 20:00 117/70 03/07/20 20:00 98.3 103 22 122/53 (76) 95 03/07/20 20:00 Mechanical Ventilator 03/07/20 19:30 104 25 104/55 (71) 96 03/07/20 19:30 107 25 90 03/07/20 19:25 117/63 03/07/20 19:00 23 Mechanical Ventilator 90 03/07/20 19:00 109/70 03/07/20 19:00 106 23 109/70 (83) 96 03/07/20 18:00 21 Mechanical Ventilator 03/07/20 18:00 125/80 03/07/20 18:00 104 21 125/80 (95) 96 03/07/20 17:51 99 20 80/52 (61) 95 03/07/20 17:45 103 21 93/63 (73) 95 03/07/20 17:37 104 24 110/59 (76) 95 03/07/20 17:30 104 22 118/59 (78) 94 03/07/20 17:15 103 21 116/64 (81) 96 03/07/20 17:00 129/59 03/07/20 17:00 97.4 105 23 129/59 (82) 95 03/07/20 16:39 106 24 90 03/07/20 16:15 105 22 128/62 (84) 96 03/07/20 16:00 90 03/07/20 16:00 103 20 131/72 (91) 97 03/07/20 16:00 20 Mechanical Ventilator 03/07/20 16:00 131/72 03/07/20 16:00 105 03/07/20 16:00 Mechanical Ventilator 03/07/20 15:30 100 21 90 03/07/20 15:15 103 23 123/68 (86) 96 03/07/20 15:06 22 Mechanical Ventilator 03/07/20 15:00 103 23 131/71 (91) 95 03/07/20 15:00 23 Mechanical Ventilator 03/07/20 15:00 131/71 03/07/20 14:30 101 22 127/63 (84) 95 03/07/20 14:15 104 25 125/65 (85) 94 03/07/20 14:15 27 Mechanical Ventilator 03/07/20 14:00 106 27 123/56 (78) 90 03/07/20 14:00 27 Mechanical Ventilator 03/07/20 14:00 123/56 03/07/20 14:00 90 03/07/20 13:41 108 28 80 03/07/20 13:30 105 26 119/79 (92) 91 03/07/20 13:00 103 23 134/57 (82) 94 03/07/20 13:00 23 Mechanical Ventilator 03/07/20 13:00 134/57 03/07/20 12:45 117/58 03/07/20 12:00 Mechanical Ventilator 03/07/20 12:00 97.7 96 20 117/58 (77) 94 03/07/20 12:00 20 Mechanical Ventilator 03/07/20 12:00 117/58 03/07/20 12:00 93 03/07/20 12:00 80 03/07/20 11:50 20 Mechanical Ventilator 03/07/20 11:30 91 20 95/49 (64) 94 03/07/20 11:15 93 20 107/48 (67) 94 03/07/20 11:00 20 Mechanical Ventilator 03/07/20 11:00 96/47 03/07/20 11:00 91 20 96/47 (63) 93 03/07/20 10:45 100 107/48 03/07/20 10:45 91 20 89/51 (64) 93 03/07/20 10:43 93 20 80 03/07/20 10:30 93 20 95/43 (60) 93 03/07/20 10:15 94 20 91/47 (62) 92 03/07/20 10:00 20 Mechanical Ventilator 03/07/20 10:00 94/48 03/07/20 10:00 95 20 94/48 (63) 92 03/07/20 09:00 22 Mechanical Ventilator 03/07/20 09:00 97/58 03/07/20 09:00 100 22 97/58 (71) 94 03/07/20 08:30 98 20 113/54 (73) 95 03/07/20 08:30 99 21 80 03/07/20 08:15 100 20 112/62 (79) 96 03/07/20 08:00 80 03/07/20 08:00 97.9 99 20 101/59 (73) 95 03/07/20 08:00 20 Mechanical Ventilator 03/07/20 08:00 101/59 03/07/20 08:00 99 03/07/20 08:00 Mechanical Ventilator 03/07/20 08:00 99 20 101/59 (73) 95 03/07/20 07:52 98 21 111/56 (74) 94 03/07/20 07:47 93 20 81/45 (57) 95 Intake and Output 03/07/20 03/08/20 19:00 07:00 Intake Total 1260.75 ml 1710 ml Output Total 865 ml 860 ml Balance 395.75 ml 850 ml Free Water 120 ml IV Total 1140.75 ml 1380 ml Tube Feeding 120 ml 210 ml Output Urine Total 420 ml 500 ml Chest Tube Drainage Total 445 ml 360 ml Laboratory Tests 03/07/20 09:00: Prothrombin Time 15.8H, Prothromb Time International Ratio 1.5H, Activated Partial Thromboplast Time 39H 03/08/20 05:45: Sodium Level 130L, Potassium Level 4.5, Chloride Level 94L, Carbon Dioxide Level 25, Anion Gap 11, Blood Urea Nitrogen [Pending], Creatinine 1.5H, Estimat Glomerular Filtration Rate 45.5, Glucose Level 116H, Calcium Level 7.3L, Total Bilirubin 7.3H, Direct Bilirubin 5.3H, Aspartate Amino Transf (AST/SGOT) 43H, Alanine Aminotransferase (ALT/SGPT) 29, Alkaline Phosphatase 173H, Total Protein 5.4L, Albumin 1.9L, Globulin 3.5, Albumin/Globulin Ratio 0.5L Height (Feet): 5 Height (Inches): 5.00 Weight (Pounds): 146 General Appearance: no apparent distress EENT: normal ENT inspection Neck: supple Cardiovascular: tachycardia Respiratory/Chest: decreased breath sounds, other - chest tube in place Abdomen: normal bowel sounds, non tender, soft Extremities: non-tender Domo Howe MD March 08, 2020 07:38
[2020-03-08 07:42] LABS: PLATELET COUNT 32 K/UL (150-450)
[2020-03-08] MEDS: Pantoprazole Inj IVP SCH (08:20)
--- NOTE | 2020-03-08 09:04 | Nephrology Progress Note ---
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 # h/o DVT # schizophrenia, bipolar #thrombocytopenia #hypokalemia, hypophos - repleted #hypoalbuminemia - albumin 25g x1 today - monitor sodium - replete lytes, phos and K prn - continue icu care - off IVF - replete lytes prn - vasopressor per pulmonary - vent management per pulm - antibiotics per ID - check free calcium in am - monitor lytes - BG control - holding antihypertensive Subjective ROS Limited/Unobtainable: Yes Subjective labs reviewed sodium 129 on levo drip Fio2 80 Objective Objective Last 24 Hour Vital Signs Date Time Temp Pulse Resp B/P (MAP) Pulse Ox O2 Delivery O2 Flow Rate FiO2 03/08/20 08:21 109/56 03/08/20 07:29 108 23 100 03/08/20 07:00 110 19 106/56 (73) 91 03/08/20 07:00 23 Mechanical Ventilator 90 03/08/20 07:00 109/56 03/08/20 06:30 110 22 03/08/20 06:16 98.3 03/08/20 06:00 112 24 114/58 (76) 93 03/08/20 06:00 24 Mechanical Ventilator 90 03/08/20 06:00 114/58 03/08/20 05:32 22 Mechanical Ventilator 80 03/08/20 05:30 110 24 101/58 (72) 89 03/08/20 05:00 109 23 114/65 (81) 91 03/08/20 05:00 22 Mechanical Ventilator 90 03/08/20 05:00 114/65 03/08/20 04:30 108 24 109/59 (76) 92 03/08/20 04:00 98.3 107 22 101/70 (80) 95 03/08/20 04:00 90 03/08/20 04:00 23 Mechanical Ventilator 90 03/08/20 04:00 101/70 03/08/20 04:00 103 03/08/20 04:00 Mechanical Ventilator 03/08/20 03:30 108 22 111/81 (91) 95 03/08/20 03:30 108 23 90 03/08/20 03:00 108 22 102/79 (87) 95 03/08/20 03:00 23 Mechanical Ventilator 90 03/08/20 03:00 102/79 03/08/20 02:30 108 23 103/61 (75) 95 03/08/20 02:28 114/58 03/08/20 02:00 23 Mechanical Ventilator 90 03/08/20 02:00 115/57 03/08/20 02:00 111 23 115/57 (76) 95 03/08/20 01:30 110 22 111/62 (78) 96 03/08/20 01:00 110 23 106/90 (95) 95 03/08/20 01:00 22 Mechanical Ventilator 90 03/08/20 01:00 106/90 03/08/20 00:30 107 21 128/61 (83) 94 03/08/20 00:00 107 03/08/20 00:00 Mechanical Ventilator 03/08/20 00:00 23 Mechanical Ventilator 90 03/08/20 00:00 92/64 03/08/20 00:00 90 03/08/20 00:00 103 21 88/64 (72) 95 03/07/20 23:30 102 20 90 03/07/20 23:00 23 Mechanical Ventilator 90 03/07/20 23:00 123/66 03/07/20 23:00 108 20 123/66 (85) 95 03/07/20 22:30 111 19 117/70 (86) 94 03/07/20 22:00 108 23 107/70 (82) 95 03/07/20 22:00 22 Mechanical Ventilator 90 03/07/20 22:00 107/70 03/07/20 21:30 109 22 118/67 (84) 97 03/07/20 21:00 90 03/07/20 21:00 103 03/07/20 21:00 24 Mechanical Ventilator 90 03/07/20 21:00 115/63 03/07/20 21:00 106 27 115/63 (80) 94 03/07/20 20:30 107 23 120/58 (78) 95 03/07/20 20:00 22 Mechanical Ventilator 90 03/07/20 20:00 117/70 03/07/20 20:00 98.3 103 22 122/53 (76) 95 03/07/20 20:00 Mechanical Ventilator 03/07/20 19:30 104 25 104/55 (71) 96 03/07/20 19:30 107 25 90 03/07/20 19:25 117/63 03/07/20 19:00 23 Mechanical Ventilator 90 03/07/20 19:00 109/70 03/07/20 19:00 106 23 109/70 (83) 96 03/07/20 18:00 21 Mechanical Ventilator 03/07/20 18:00 125/80 03/07/20 18:00 104 21 125/80 (95) 96 03/07/20 17:51 99 20 80/52 (61) 95 03/07/20 17:45 103 21 93/63 (73) 95 03/07/20 17:37 104 24 110/59 (76) 95 03/07/20 17:30 104 22 118/59 (78) 94 03/07/20 17:15 103 21 116/64 (81) 96 03/07/20 17:00 129/59 03/07/20 17:00 97.4 105 23 129/59 (82) 95 03/07/20 16:39 106 24 90 03/07/20 16:15 105 22 128/62 (84) 96 03/07/20 16:00 90 03/07/20 16:00 103 20 131/72 (91) 97 03/07/20 16:00 20 Mechanical Ventilator 03/07/20 16:00 131/72 03/07/20 16:00 105 03/07/20 16:00 Mechanical Ventilator 03/07/20 15:30 100 21 90 03/07/20 15:15 103 23 123/68 (86) 96 03/07/20 15:06 22 Mechanical Ventilator 03/07/20 15:00 103 23 131/71 (91) 95 03/07/20 15:00 23 Mechanical Ventilator 03/07/20 15:00 131/71 03/07/20 14:30 101 22 127/63 (84) 95 03/07/20 14:15 104 25 125/65 (85) 94 03/07/20 14:15 27 Mechanical Ventilator 03/07/20 14:00 106 27 123/56 (78) 90 03/07/20 14:00 27 Mechanical Ventilator 03/07/20 14:00 123/56 03/07/20 14:00 90 03/07/20 13:41 108 28 80 03/07/20 13:30 105 26 119/79 (92) 91 03/07/20 13:00 103 23 134/57 (82) 94 03/07/20 13:00 23 Mechanical Ventilator 03/07/20 13:00 134/57 03/07/20 12:45 117/58 03/07/20 12:00 Mechanical Ventilator 03/07/20 12:00 97.7 96 20 117/58 (77) 94 03/07/20 12:00 20 Mechanical Ventilator 03/07/20 12:00 117/58 03/07/20 12:00 93 03/07/20 12:00 80 03/07/20 11:50 20 Mechanical Ventilator 03/07/20 11:30 91 20 95/49 (64) 94 03/07/20 11:15 93 20 107/48 (67) 94 03/07/20 11:00 20 Mechanical Ventilator 03/07/20 11:00 96/47 03/07/20 11:00 91 20 96/47 (63) 93 03/07/20 10:45 100 107/48 03/07/20 10:45 91 20 89/51 (64) 93 03/07/20 10:43 93 20 80 03/07/20 10:30 93 20 95/43 (60) 93 03/07/20 10:15 94 20 91/47 (62) 92 03/07/20 10:00 20 Mechanical Ventilator 03/07/20 10:00 94/48 03/07/20 10:00 95 20 94/48 (63) 92 Intake and Output 03/07/20 03/08/20 19:00 07:00 Intake Total 1260.75 ml 1710 ml Output Total 865 ml 860 ml Balance 395.75 ml 850 ml Free Water 120 ml IV Total 1140.75 ml 1380 ml Tube Feeding 120 ml 210 ml Output Urine Total 420 ml 500 ml Chest Tube Drainage Total 445 ml 360 ml Laboratory Tests 03/08/20 05:30: White Blood Count 15.1H, Red Blood Count 3.19L, Hemoglobin 10.1L, Hematocrit 29.9L, Mean Corpuscular Volume 94, Mean Corpuscular Hemoglobin 31.8H, Mean Corpuscular Hemoglobin Concent 33.9, Red Cell Distribution Width 15.4H, Platelet Count 32#L, Mean Platelet Volume 9.4, Neutrophils (%) (Auto) , Lymphocytes (%) (Auto) , Monocytes (%) (Auto) , Eosinophils (%) (Auto) , Basophils (%) (Auto) , Neutrophils % (Manual) [Pending], Lymphocytes % (Manual) [Pending], Platelet Estimate [Pending], Platelet Morphology [Pending] 03/08/20 05:45: Sodium Level 130L, Potassium Level 4.5, Chloride Level 94L, Carbon Dioxide Level 25, Anion Gap 11, Blood Urea Nitrogen 37H, Creatinine 1.5H, Estimat Glomerular Filtration Rate 45.5, Glucose Level 116H, Calcium Level 7.3L, Total Bilirubin 7.3H, Direct Bilirubin 5.3H, Aspartate Amino Transf (AST/SGOT) 43H, Alanine Aminotransferase (ALT/SGPT) 29, Alkaline Phosphatase 173H, Total Protein 5.4L, Albumin 1.9L, Globulin 3.5, Albumin/Globulin Ratio 0.5L Height (Feet): 5 Height (Inches): 5.00 Weight (Pounds): 146 Objective General Appearance: other - intubated Lines, tubes and drains: peripheral HEENT: normocephalic, atraumatic, other - dry mucous membranes Neck: non-tender, normal alignment Respiratory/Chest: rhonchi - bilaterally Cardiovascular/Chest: normal peripheral pulses, normal rate Abdomen: soft, hypoactive bowel sounds Extremities: normal range of motion, no calf tenderness, non-pitting, no edema Skin Exam: normal pigmentation, warm/dry Dwayne Salas M.D. March 08, 2020 09:04
--- NOTE | 2020-03-08 09:22 | Hematology/Onc Progress Note ---
Assessment/Plan Assessment/Plan # Severe thrombocytopenia - potential causes multifactorial, evaluate liver and viral etiologies to begin, in this particular case, given mosf, is due to [id number], has had hyperbilirubinemia, has received heparin and zosyn both culprits as well --> Hep panel and HIV ordered -- neg --> US abd to evaluate for cirrhosis and hsm ordered ->when covid is negative --> Peripheral smear ordered to evaluate for blasts /schistocytes (ALSO HAVE Ordered for DIC panel)-->DIC panel reviewed, D-dimer high, inr higher, hapto pending --> abx and other meds have been reviewed --> ok for ppx if plt >50k w/ either heparin or lovenox --> Transfuse if Plt < 20k and fever, or if Plt < 10k without fever --> off heparin now, have ordered for hit-pf4 antibody test-->neg --> plt trend 15-->20k-->37k->42->19-->32k --> plt transfusion: 03/07, --> HOLD LOVENOX SQ # Anemia of chronic disease due to underlying chronic medical issues, multifactorial v Gi bleed --> Anemia workup has been ordered, rule out gi bleed --> No evidence of hemolysis is noted, peripheral smear has been reviewed. --> Hgb goal >7. Transfuse prn. --> Epogen or iron at this time is not particularly indicated --> Medications have been reviewed --> low threshold for gi evaluation in case has occult + --> bone marrow biopsy is not indicated given the other more likely causes --> hgb trend 9.9-->9.7-->8.6->10-->8.8-->10.1 # Leukocytosis with septic shock 2/2 due to covid 19 --> on abx as per id -->zosyn/doxy/vanc-->cefepime/vanc --> wbc remains elev 17k-->22-->15.1 # Acute Hypoxic Respiratory Failure --> now s/p vent --> in icu # HCAP COVID positive --> abx, plaq and supp care # Jaundiced with Hyperbilirubinemia --> per gi--> with ogt --> have ordered repeat bilis, has improved # Schizophrenia # Bipolar dx # Dvt ppx scds The timing of this note does not necessarily reflect the time of the patient was seen. Greatly appreciate consultation. Subjective Allergies: Coded Allergies: No Known Allergies (Unverified , 01/19/19) Subjective 02/28 remains on vent, og, rush, sedated in icu, on pressors, plt 15k, smear pending 03/02 icu, levo gtt, s/p ffp x2 units, on abx, labs pending 03/03 remains on vent with ogt, no bleeding, no night sweats 03/04 no bleeding, meds noted, no f/c, no night sweats 03/06 intubated, left chest tube in pace, with of, no bleeding 03/07 nv, remains on vent, with left chest tube, with ogt, no bleeding, plt lower 03/08 icu, s/p plt transfusion, plt improved to 23k, on cefepime/vanc Objective Objective Current Medications Medications (Trade) Dose Ordered Sig/Cirilo Route PRN Reason Start Time Stop Time Status Last Admin Dose Admin Acetaminophen (Tylenol) 650 mg Q4H PRN ORAL Fever 02/22/20 14:15 03/23/20 14:14 02/28/20 17:52 Acetaminophen (Tylenol) 650 mg Q4H PRN ORAL Mild Pain (Pain Scale 1-3) 02/22/20 14:15 03/23/20 14:14 03/03/20 17:31 Acetaminophen (Tylenol) 650 mg Q4H PRN RECTAL Mild Pain (Pain Scale 1-3) 02/22/20 14:15 03/23/20 14:14 02/22/20 21:28 Acetaminophen (Tylenol) 650 mg Q4H PRN RECTAL FEVER 02/22/20 14:15 03/23/20 14:14 03/06/20 04:20 Cefepime HCl 2 gm/ Dextrose 100 ml @ 200 mls/hr Q12HR IVPB 03/06/20 21:00 03/13/20 20:59 03/08/20 08:21 Chlorhexidine Gluconate (Maira-Hex 2%) 1 applic DAILY@2000 TOPIC 02/23/20 20:00 05/23/20 19:59 03/07/20 20:12 Dextrose (Dextrose 50%) 25 ml Q30M PRN IV Hypoglycemia 02/23/20 09:00 05/23/20 08:59 Dextrose (Dextrose 50%) 50 ml Q30M PRN IV Hypoglycemia 02/23/20 09:00 05/23/20 08:59 Diphenhydramine HCl (Benadryl) 25 mg Q6H PRN ORAL Itching/Pruritis 02/22/20 14:15 03/23/20 14:14 02/26/20 01:34 Fentanyl Citrate 2500 mcg/Sodium Chloride 250 ml @ 0 mls/hr Q24H IV 03/01/20 19:45 03/08/20 19:44 03/08/20 05:32 Fluconazole/ Sodium Chloride 200 ml @ 200 mls/hr Q24H IV 03/06/20 20:00 03/13/20 19:59 03/07/20 20:12 Insulin Aspart (NovoLOG) Q6HR SUBQ 02/28/20 18:00 05/28/20 17:59 03/08/20 06:16 Metoclopramide HCl (Reglan) 5 mg Q6HR IVP 03/01/20 12:00 03/31/20 11:59 03/08/20 05:26 Metronidazole (Flagyl) 500 mg EVERY 8 HOURS ORAL 03/06/20 22:00 03/13/20 21:59 03/08/20 05:26 Midazolam HCl 100 ml @ 0 mls/hr Q24H IV 02/26/20 15:06 05/26/20 15:05 02/26/20 15:48 Norepinephrine Bitartrate 8 mg/ Dextrose 500 ml @ 0 mls/hr Q24H IV 02/23/20 19:01 03/24/20 19:00 03/08/20 08:21 Pantoprazole (Protonix) 40 mg DAILY IVP 02/23/20 09:30 03/24/20 09:29 03/08/20 08:20 Phenylephrine HCl 50 mg/Dextrose 250 ml @ 6 mls/hr Q24H IV 02/29/20 10:45 03/30/20 10:44 03/04/20 04:43 Vancomycin HCl (Vanco rx to dose) 1 ea DAILY PRN MISC Per rx protocol 03/06/20 18:15 6/9/20 18:14 Last 24 Hour Vital Signs Date Time Temp Pulse Resp B/P (MAP) Pulse Ox O2 Delivery O2 Flow Rate FiO2 03/08/20 08:21 109/56 03/08/20 07:29 108 23 100 03/08/20 07:00 110 19 106/56 (73) 91 03/08/20 07:00 23 Mechanical Ventilator 90 03/08/20 07:00 109/56 03/08/20 06:30 110 22 03/08/20 06:16 98.3 03/08/20 06:00 112 24 114/58 (76) 93 03/08/20 06:00 24 Mechanical Ventilator 90 03/08/20 06:00 114/58 03/08/20 05:32 22 Mechanical Ventilator 80 03/08/20 05:30 110 24 101/58 (72) 89 03/08/20 05:00 109 23 114/65 (81) 91 03/08/20 05:00 22 Mechanical Ventilator 90 03/08/20 05:00 114/65 03/08/20 04:30 108 24 109/59 (76) 92 03/08/20 04:00 98.3 107 22 101/70 (80) 95 03/08/20 04:00 90 03/08/20 04:00 23 Mechanical Ventilator 90 03/08/20 04:00 101/70 03/08/20 04:00 103 03/08/20 04:00 Mechanical Ventilator 03/08/20 03:30 108 22 111/81 (91) 95 03/08/20 03:30 108 23 90 03/08/20 03:00 108 22 102/79 (87) 95 03/08/20 03:00 23 Mechanical Ventilator 90 03/08/20 03:00 102/79 03/08/20 02:30 108 23 103/61 (75) 95 03/08/20 02:28 114/58 03/08/20 02:00 23 Mechanical Ventilator 90 03/08/20 02:00 115/57 03/08/20 02:00 111 23 115/57 (76) 95 03/08/20 01:30 110 22 111/62 (78) 96 03/08/20 01:00 110 23 106/90 (95) 95 03/08/20 01:00 22 Mechanical Ventilator 90 03/08/20 01:00 106/90 03/08/20 00:30 107 21 128/61 (83) 94 03/08/20 00:00 107 03/08/20 00:00 Mechanical Ventilator 03/08/20 00:00 23 Mechanical Ventilator 90 03/08/20 00:00 92/64 03/08/20 00:00 90 03/08/20 00:00 103 21 88/64 (72) 95 03/07/20 23:30 102 20 90 03/07/20 23:00 23 Mechanical Ventilator 90 03/07/20 23:00 123/66 03/07/20 23:00 108 20 123/66 (85) 95 03/07/20 22:30 111 19 117/70 (86) 94 03/07/20 22:00 108 23 107/70 (82) 95 03/07/20 22:00 22 Mechanical Ventilator 90 03/07/20 22:00 107/70 03/07/20 21:30 109 22 118/67 (84) 97 03/07/20 21:00 90 03/07/20 21:00 103 03/07/20 21:00 24 Mechanical Ventilator 90 03/07/20 21:00 115/63 03/07/20 21:00 106 27 115/63 (80) 94 03/07/20 20:30 107 23 120/58 (78) 95 03/07/20 20:00 22 Mechanical Ventilator 90 03/07/20 20:00 117/70 03/07/20 20:00 98.3 103 22 122/53 (76) 95 03/07/20 20:00 Mechanical Ventilator 03/07/20 19:30 104 25 104/55 (71) 96 03/07/20 19:30 107 25 90 03/07/20 19:25 117/63 03/07/20 19:00 23 Mechanical Ventilator 90 03/07/20 19:00 109/70 03/07/20 19:00 106 23 109/70 (83) 96 03/07/20 18:00 21 Mechanical Ventilator 03/07/20 18:00 125/80 03/07/20 18:00 104 21 125/80 (95) 96 03/07/20 17:51 99 20 80/52 (61) 95 03/07/20 17:45 103 21 93/63 (73) 95 03/07/20 17:37 104 24 110/59 (76) 95 03/07/20 17:30 104 22 118/59 (78) 94 03/07/20 17:15 103 21 116/64 (81) 96 03/07/20 17:00 129/59 03/07/20 17:00 97.4 105 23 129/59 (82) 95 03/07/20 16:39 106 24 90 03/07/20 16:15 105 22 128/62 (84) 96 03/07/20 16:00 90 03/07/20 16:00 103 20 131/72 (91) 97 03/07/20 16:00 20 Mechanical Ventilator 03/07/20 16:00 131/72 03/07/20 16:00 105 03/07/20 16:00 Mechanical Ventilator 03/07/20 15:30 100 21 90 03/07/20 15:15 103 23 123/68 (86) 96 03/07/20 15:06 22 Mechanical Ventilator 03/07/20 15:00 103 23 131/71 (91) 95 03/07/20 15:00 23 Mechanical Ventilator 03/07/20 15:00 131/71 03/07/20 14:30 101 22 127/63 (84) 95 03/07/20 14:15 104 25 125/65 (85) 94 03/07/20 14:15 27 Mechanical Ventilator 03/07/20 14:00 106 27 123/56 (78) 90 03/07/20 14:00 27 Mechanical Ventilator 03/07/20 14:00 123/56 03/07/20 14:00 90 03/07/20 13:41 108 28 80 03/07/20 13:30 105 26 119/79 (92) 91 03/07/20 13:00 103 23 134/57 (82) 94 03/07/20 13:00 23 Mechanical Ventilator 03/07/20 13:00 134/57 03/07/20 12:45 117/58 03/07/20 12:00 Mechanical Ventilator 03/07/20 12:00 97.7 96 20 117/58 (77) 94 03/07/20 12:00 20 Mechanical Ventilator 03/07/20 12:00 117/58 03/07/20 12:00 93 03/07/20 12:00 80 03/07/20 11:50 20 Mechanical Ventilator 03/07/20 11:30 91 20 95/49 (64) 94 03/07/20 11:15 93 20 107/48 (67) 94 03/07/20 11:00 20 Mechanical Ventilator 03/07/20 11:00 96/47 03/07/20 11:00 91 20 96/47 (63) 93 03/07/20 10:45 100 107/48 03/07/20 10:45 91 20 89/51 (64) 93 03/07/20 10:43 93 20 80 03/07/20 10:30 93 20 95/43 (60) 93 03/07/20 10:15 94 20 91/47 (62) 92 03/07/20 10:00 20 Mechanical Ventilator 03/07/20 10:00 94/48 03/07/20 10:00 95 20 94/48 (63) 92 03/07/20 09:00 22 Mechanical Ventilator 03/07/20 09:00 97/58 03/07/20 09:00 100 22 97/58 (71) 94 03/07/20 08:30 98 20 113/54 (73) 95 03/07/20 08:30 99 21 80 03/07/20 08:15 100 20 112/62 (79) 96 03/07/20 08:00 80 03/07/20 08:00 97.9 99 20 101/59 (73) 95 03/07/20 08:00 20 Mechanical Ventilator 03/07/20 08:00 101/59 03/07/20 08:00 99 03/07/20 08:00 Mechanical Ventilator 03/07/20 08:00 99 20 101/59 (73) 95 03/07/20 07:52 98 21 111/56 (74) 94 03/07/20 07:47 93 20 81/45 (57) 95 03/07/20 07:30 97 20 111/58 (75) 96 03/07/20 07:21 98 21 80 03/07/20 07:00 24 Mechanical Ventilator 70 03/07/20 07:00 107/50 03/07/20 07:00 96 21 107/50 (69) 95 03/07/20 06:30 98 20 110/57 (74) 95 03/07/20 06:30 96 23 03/07/20 06:00 97 20 120/56 (77) 94 03/07/20 06:00 23 Mechanical Ventilator 80 03/07/20 06:00 120/55 03/07/20 05:49 81/33 03/07/20 05:30 97 20 119/67 (84) 95 03/07/20 05:00 98 21 115/63 (80) 95 03/07/20 05:00 24 Mechanical Ventilator 80 03/07/20 05:00 115/63 03/07/20 04:30 97.3 90 20 91/51 (64) 95 03/07/20 04:00 Mechanical Ventilator 03/07/20 04:00 80 03/07/20 04:00 22 Mechanical Ventilator 80 03/07/20 04:00 109/59 03/07/20 04:00 96 21 109/59 (76) 95 03/07/20 04:00 98 03/07/20 03:30 96 21 118/59 (78) 97 03/07/20 03:29 104 23 80 03/07/20 03:00 96 20 108/51 (70) 95 03/07/20 03:00 23 Mechanical Ventilator 80 03/07/20 03:00 108/51 03/07/20 02:45 111/61 03/07/20 02:30 97 23 101/60 (74) 96 03/07/20 02:30 101/60 03/07/20 02:15 107/43 03/07/20 02:00 22 Mechanical Ventilator 90 03/07/20 02:00 83/53 03/07/20 02:00 97 21 83/53 (63) 96 03/07/20 01:45 119/38 03/07/20 01:30 97 16 118/54 (75) 93 03/07/20 01:30 118/54 03/07/20 01:15 138/61 03/07/20 01:00 102 20 135/63 (87) 99 03/07/20 01:00 24 Mechanical Ventilator 90 03/07/20 01:00 135/63 03/07/20 00:48 22 Mechanical Ventilator 90 03/07/20 00:45 128/58 03/07/20 00:30 97.6 94 20 110/71 (84) 99 03/07/20 00:30 110/71 03/07/20 00:15 109/50 03/07/20 00:00 21 Mechanical Ventilator 90 03/07/20 00:00 132/61 03/07/20 00:00 Mechanical Ventilator 03/07/20 00:00 102 23 132/61 (84) 97 03/06/20 23:45 102 21 139/58 (85) 97 03/06/20 23:45 139/58 03/06/20 23:30 101 20 126/58 (80) 97 03/06/20 23:30 126/58 03/06/20 23:16 108 21 100 03/06/20 23:15 139/62 03/06/20 23:00 22 Mechanical Ventilator 90 03/06/20 23:00 132/66 03/06/20 23:00 102 23 132/66 (88) 97 03/06/20 22:45 136/64 03/06/20 22:30 101 23 138/56 (83) 100 03/06/20 22:30 138/56 03/06/20 22:10 140/61 03/06/20 22:00 20 Mechanical Ventilator 100 03/06/20 22:00 140/61 03/06/20 22:00 99 22 140/61 (87) 100 03/06/20 21:30 140/60 03/06/20 21:30 103 20 142/60 (87) 99 03/06/20 21:00 106 22 142/55 (84) 99 03/06/20 21:00 24 Mechanical Ventilator 100 03/06/20 21:00 142/55 03/06/20 20:30 98.6 108 23 141/62 (88) 98 03/06/20 20:00 100 03/06/20 20:00 109 23 140/61 (87) 98 03/06/20 20:00 23 Mechanical Ventilator 100 03/06/20 20:00 140/61 03/06/20 20:00 107 03/06/20 20:00 Mechanical Ventilator 03/06/20 19:30 109 22 142/58 (86) 98 03/06/20 19:27 110 20 100 03/06/20 19:00 22 Mechanical Ventilator 03/06/20 19:00 141/57 03/06/20 19:00 107 21 141/57 (85) 98 03/06/20 18:00 112 20 132/58 (82) 98 03/06/20 17:30 112 21 133/53 (79) 98 5/10/20 17:00 21 Mechanical Ventilator 03/06/20 17:00 136/50 03/06/20 17:00 115 21 136/50 (78) 98 03/06/20 16:30 115 24 136/56 (82) 98 03/06/20 16:00 113 03/06/20 16:00 99.7 112 22 135/71 (92) 97 03/06/20 16:00 22 Mechanical Ventilator 03/06/20 16:00 135/71 03/06/20 16:00 Mechanical Ventilator 03/06/20 16:00 100 03/06/20 15:47 113 22 100 03/06/20 15:34 110/47 03/06/20 15:30 109 21 128/55 (79) 98 03/06/20 15:15 103 20 113/51 (71) 99 03/06/20 15:00 20 Mechanical Ventilator 03/06/20 15:00 113/48 03/06/20 15:00 104 20 113/48 (69) 98 03/06/20 14:00 106 20 110/47 (68) 99 03/06/20 14:00 20 Mechanical Ventilator 03/06/20 14:00 110/47 03/06/20 13:30 109 20 115/47 (69) 99 03/06/20 13:12 111 22 131/55 (80) 99 03/06/20 13:00 109 22 83/40 (54) 99 03/06/20 13:00 22 Mechanical Ventilator 03/06/20 13:00 131/55 03/06/20 12:30 110 20 126/55 (78) 97 03/06/20 12:15 110 20 124/58 (80) 97 03/06/20 12:00 Mechanical Ventilator 03/06/20 12:00 109 03/06/20 12:00 21 Mechanical Ventilator 03/06/20 12:00 131/55 03/06/20 12:00 100 03/06/20 12:00 99.9 111 21 131/55 (80) 97 03/06/20 11:26 110 20 100 03/06/20 11:03 110 20 126/56 (79) 98 03/06/20 11:00 20 Mechanical Ventilator 03/06/20 11:00 126/56 5/10/20 10:45 109 113/48 03/06/20 10:00 109 20 113/48 (69) 100 03/06/20 10:00 20 Mechanical Ventilator 03/06/20 10:00 113/48 03/06/20 09:37 104/48 Intake and Output 03/07/20 03/08/20 19:00 07:00 Intake Total 1260.75 ml 1710 ml Output Total 865 ml 860 ml Balance 395.75 ml 850 ml Free Water 120 ml IV Total 1140.75 ml 1380 ml Tube Feeding 120 ml 210 ml Output Urine Total 420 ml 500 ml Chest Tube Drainage Total 445 ml 360 ml Labs Test 03/06/20 03:30 03/06/20 12:05 03/06/20 15:15 03/07/20 04:25 White Blood Count 17.7 K/UL (4.8-10.8) Red Blood Count 3.26 M/UL (4.70-6.10) Hemoglobin 10.1 G/DL (14.2-18.0) Hematocrit 29.9 % (42.0-52.0) Mean Corpuscular Volume 92 FL (80-99) Mean Corpuscular Hemoglobin 31.1 PG (27.0-31.0) Mean Corpuscular Hemoglobin Concent 33.8 G/DL (32.0-36.0) Red Cell Distribution Width 15.2 % (11.6-14.8) Platelet Count 43 K/UL (150-450) Mean Platelet Volume 13.0 FL (6.5-10.1) Neutrophils (%) (Auto) % (45.0-75.0) Lymphocytes (%) (Auto) % (20.0-45.0) Monocytes (%) (Auto) % (1.0-10.0) Eosinophils (%) (Auto) % (0.0-3.0) Basophils (%) (Auto) % (0.0-2.0) Differential Total Cells Counted 100 Neutrophils % (Manual) 87 % (45-75) Lymphocytes % (Manual) 2 % (20-45) Monocytes % (Manual) 2 % (1-10) Eosinophils % (Manual) 0 % (0-3) Basophils % (Manual) 0 % (0-2) Band Neutrophils 9 % (0-8) Platelet Estimate Decreased Platelet Morphology Normal Polychromasia 1+ Hypochromasia 1+ Anisocytosis 1+ Prothrombin Time 17.0 SEC (9.30-11.50) Prothromb Time International Ratio 1.6 (0.9-1.1) Activated Partial Thromboplast Time 33 SEC (23-33) Fibrinogen 466 mg/dL (200-400) D-Dimer 10.40 mg/L FEU (0.00-0.49) Sodium Level 123 MMOL/L (136-145) Potassium Level 4.1 MMOL/L (3.5-5.1) Chloride Level 92 MMOL/L (98-107) Carbon Dioxide Level 30 MMOL/L (21-32) Anion Gap 1 mmol/L (5-15) Blood Urea Nitrogen 34 mg/dL (7-18) Creatinine 1.2 MG/DL (0.55-1.30) Estimat Glomerular Filtration Rate 58.9 mL/min (>60) Glucose Level 126 MG/DL (74-106) Calcium Level 7.1 MG/DL (8.5-10.1) Phosphorus Level 2.4 MG/DL (2.5-4.9) Magnesium Level 1.9 MG/DL (1.8-2.4) Random Vancomycin Level 19.5 ug/mL Urine Osmolality 311 mOsm/kg (429-449) Urine Random Sodium < 20 mmol/L (20-110) Ionized Calcium (Measured) 0.95 mmol/L (1.10-1.35) Urine Color Yellow Urine Appearance Slightly cloudy Urine pH 5 (4.5-8.0) Urine Specific [place]ran 1.015 (1.005-1.035) Urine Protein 2+ (NEGATIVE) Urine Glucose (UA) Negative (NEGATIVE) Urine Ketones Negative (NEGATIVE) Urine Blood 2+ (NEGATIVE) Urine Nitrite Negative (NEGATIVE) Urine Bilirubin 1+ (NEGATIVE) Urine Ictotest Negative (NEGATIVE) Urine Urobilinogen Normal MG/DL (0.0-1.0) Urine Leukocyte Esterase Negative (NEGATIVE) Urine RBC 0-2 /HPF (0 - 0) Urine WBC 2-4 /HPF (0 - 0) Urine Squamous Epithelial Cells Occasional /LPF Urine Amorphous Sediment Many /LPF (NONE) Urine Bacteria Occasional /HPF (NONE) Test 03/07/20 04:38 03/07/20 09:00 03/08/20 05:30 03/08/20 05:45 White Blood Count 22.3 K/UL (4.8-10.8) 15.1 K/UL (4.8-10.8) Red Blood Count 2.75 M/UL (4.70-6.10) 3.19 M/UL (4.70-6.10) Hemoglobin 8.8 G/DL (14.2-18.0) 10.1 G/DL (14.2-18.0) Hematocrit 25.2 % (42.0-52.0) 29.9 % (42.0-52.0) Mean Corpuscular Volume 92 FL (80-99) 94 FL (80-99) Mean Corpuscular Hemoglobin 31.9 PG (27.0-31.0) 31.8 PG (27.0-31.0) Mean Corpuscular Hemoglobin Concent 34.8 G/DL (32.0-36.0) 33.9 G/DL (32.0-36.0) Red Cell Distribution Width 15.6 % (11.6-14.8) 15.4 % (11.6-14.8) Platelet Count 19 K/UL (150-450) 32 K/UL (150-450) Mean Platelet Volume 10.0 FL (6.5-10.1) 9.4 FL (6.5-10.1) Neutrophils (%) (Auto) % (45.0-75.0) % (45.0-75.0) Lymphocytes (%) (Auto) % (20.0-45.0) % (20.0-45.0) Monocytes (%) (Auto) % (1.0-10.0) % (1.0-10.0) Eosinophils (%) (Auto) % (0.0-3.0) % (0.0-3.0) Basophils (%) (Auto) % (0.0-2.0) % (0.0-2.0) Differential Total Cells Counted 100 Neutrophils % (Manual) 93 % (45-75) Lymphocytes % (Manual) 1 % (20-45) Monocytes % (Manual) 6 % (1-10) Eosinophils % (Manual) 0 % (0-3) Basophils % (Manual) 0 % (0-2) Band Neutrophils 0 % (0-8) Nucleated Red Blood Cells 1 /100 WBC Platelet Estimate Decreased Platelet Morphology Normal Hypochromasia 2+ Anisocytosis 1+ Spherocytes 1+ Sodium Level 129 MMOL/L (136-145) 130 MMOL/L (136-145) Potassium Level 3.8 MMOL/L (3.5-5.1) 4.5 MMOL/L (3.5-5.1) Chloride Level 94 MMOL/L (98-107) 94 MMOL/L (98-107) Carbon Dioxide Level 29 MMOL/L (21-32) 25 MMOL/L (21-32) Anion Gap 6 mmol/L (5-15) 11 mmol/L (5-15) Blood Urea Nitrogen 37 mg/dL (7-18) 37 mg/dL (7-18) Creatinine 1.2 MG/DL (0.55-1.30) 1.5 MG/DL (0.55-1.30) Estimat Glomerular Filtration Rate 58.9 mL/min (>60) 45.5 mL/min (>60) Glucose Level 121 MG/DL (74-106) 116 MG/DL (74-106) Calcium Level 7.1 MG/DL (8.5-10.1) 7.3 MG/DL (8.5-10.1) Phosphorus Level 3.8 MG/DL (2.5-4.9) Magnesium Level 2.0 MG/DL (1.8-2.4) Total Bilirubin 7.6 MG/DL (0.2-1.0) 7.3 MG/DL (0.2-1.0) Direct Bilirubin 6.3 MG/DL (0.0-0.3) 5.3 MG/DL (0.0-0.3) Aspartate Amino Transf (AST/SGOT) 42 U/L (15-37) 43 U/L (15-37) Alanine Aminotransferase (ALT/SGPT) 27 U/L (12-78) 29 U/L (12-78) Alkaline Phosphatase 177 U/L (46-116) 173 U/L (46-116) Total Protein 4.8 G/DL (6.4-8.2) 5.4 G/DL (6.4-8.2) Albumin 1.7 G/DL (3.4-5.0) 1.9 G/DL (3.4-5.0) Globulin 3.1 g/dL 3.5 g/dL Albumin/Globulin Ratio 0.5 (1.0-2.7) 0.5 (1.0-2.7) Prothrombin Time 15.8 SEC (9.30-11.50) Prothromb Time International Ratio 1.5 (0.9-1.1) Activated Partial Thromboplast Time 39 SEC (23-33) Height (Feet): 5 Height (Inches): 5.00 Weight (Pounds): 146 Objective Physical Exam: Vitals: reviewed General: NAD HEENT: nc, at ++Ogt Neck: supple Chest: in the icu, remains intubated++, left chest tube+++ Cardiovascular: RRR, no s3, s4 Abdomen: soft, nontender, nd Extremities: no cce, normal range of motion Neuro: alert to self : Montez Maradiaga MD March 08, 2020 09:22
--- NOTE | 2020-03-08 09:40 | General Progress Note ---
Assessment/Plan Status: unchanged Assessment/Plan: 74 y/o M from [place], PMH HTN, DMT2, dementia, Alzheimers dx, h/o CVA/TIA, h/o DVT, schizophrenia who presents for Fever. In the ED, pt found to be septic, Tm 100.9 , RR22, WBC 7.3, Lactic acid 2.8, and ABG revealed acute hypoxic respiratory failure. Pt was intubated and admitted to ICU for acute hypoxic respiratory failure, COVID positive. #Septic shock 2/2 #Acute Hypoxic Respiratory Failure 2/2 HCAP/COVID+ and CHF #Pneumothorax s/p left Chest tube 03/01 -Appreciate ICU level care -pt intubated in ED, 02/21, Cont Vent management per pulm -Cont. COVID isolation protocol -Fentanyl for sedation, Levophed for pressure support -Chest tube management per surgery -BNP >2000, echo EF 50% -s/p plaquenil (stopped on 02/27) -Trend Predictive Markers Q3 days, Ddimer, CRP, Procalcitonin, Ferritin -ID: vanc, zosyn, doxycycline --> repeat amaya Cx 03/06 BCX NGTD, SCx GN bacilli #Thrombocytopenia #Anemia of chronic dx -likely multifactorial, 2/2 to above/sepsis/COVID -Epogen, iron not indicated at this time given acute infection -s/p blood transfusion -Heme consulted, Dr. Verde: ok for ppx if plts >50k w/either heparin or lovenox #Jaundiced - stable #Hyperbilirubinemia -elevated t bili, direct bili likely 2/2 sepsis -appreciate GI recs #Hyponatremia #Hypokalemia #Hypernatremia - improved -likely 2/2 dehydration -ctm electrolytes, replace PRN -nephro following, recs appreciated #Type 2 DM -holding home metformin -accuchecks q6h -ISS changed from sensitive to moderate #HTN -holding home bp meds given septic shock -holding Lasix 20 mg q daily, benazepril 5 mg q daily #Alzheimer disease/Dementia #Schizophrenia/Bipolar dx -reviewed MAR from [place], no home meds for schizophrenia/bipolar dx noted -holding home aricept given clinical picture DVT PPx: lovenox Time spent: 58 mins, 34 mins spent on critical care time. Critical Care Services performed include: Telemetry Review Hemodynamic measurement interpretation Laboratory data review and interpretation Medication adjustments Radiographic images reviewed Discussion of patient's care with ICU team, Nursing staff and consulting physicians, Dr. Garcia and Dr. Bland on POC. Time of note may not reflect time of encounter. Subjective Allergies: Coded Allergies: No Known Allergies (Unverified , 01/19/19) Subjective F/u for acute respiratory failure, COVID+, s/p intubation on 02/21, PTX s/p left chest tube placed on 03/01 by general sx. Pt remains hypotensive, on max pressure support, levo, FiO2 100%, no PEEP Unable to obtain ROS due to clinical picture. Objective Last 24 Hour Vital Signs Date Time Temp Pulse Resp B/P (MAP) Pulse Ox O2 Delivery O2 Flow Rate FiO2 03/08/20 09:19 107 21 93/40 (57) 95 03/08/20 09:17 107 20 89/46 (60) 94 03/08/20 09:15 106 20 82/43 (56) 95 03/08/20 09:07 109 20 90/44 (59) 95 03/08/20 09:00 99/48 03/08/20 09:00 109 21 99/48 (65) 92 03/08/20 08:47 107 22 124/58 (80) 93 03/08/20 08:35 113 20 113/52 (72) 92 03/08/20 08:30 97.8 111 23 87/68 (74) 91 03/08/20 08:21 109/56 03/08/20 08:15 108 23 98/58 (71) 93 03/08/20 08:00 109 22 96/58 (71) 93 03/08/20 08:00 Mechanical Ventilator 03/08/20 08:00 22 Mechanical Ventilator 03/08/20 08:00 96/58 03/08/20 08:00 100 03/08/20 07:29 108 23 100 03/08/20 07:00 110 19 106/56 (73) 91 03/08/20 07:00 23 Mechanical Ventilator 90 03/08/20 07:00 109/56 03/08/20 06:30 110 22 03/08/20 06:16 98.3 03/08/20 06:00 112 24 114/58 (76) 93 03/08/20 06:00 24 Mechanical Ventilator 90 03/08/20 06:00 114/58 03/08/20 05:32 22 Mechanical Ventilator 80 03/08/20 05:30 110 24 101/58 (72) 89 03/08/20 05:00 109 23 114/65 (81) 91 03/08/20 05:00 22 Mechanical Ventilator 90 03/08/20 05:00 114/65 03/08/20 04:30 108 24 109/59 (76) 92 03/08/20 04:00 98.3 107 22 101/70 (80) 95 03/08/20 04:00 90 03/08/20 04:00 23 Mechanical Ventilator 90 03/08/20 04:00 101/70 03/08/20 04:00 103 03/08/20 04:00 Mechanical Ventilator 03/08/20 03:30 108 22 111/81 (91) 95 03/08/20 03:30 108 23 90 03/08/20 03:00 108 22 102/79 (87) 95 03/08/20 03:00 23 Mechanical Ventilator 90 03/08/20 03:00 102/79 03/08/20 02:30 108 23 103/61 (75) 95 03/08/20 02:28 114/58 03/08/20 02:00 23 Mechanical Ventilator 90 03/08/20 02:00 115/57 03/08/20 02:00 111 23 115/57 (76) 95 03/08/20 01:30 110 22 111/62 (78) 96 03/08/20 01:00 110 23 106/90 (95) 95 03/08/20 01:00 22 Mechanical Ventilator 90 03/08/20 01:00 106/90 03/08/20 00:30 107 21 128/61 (83) 94 03/08/20 00:00 107 03/08/20 00:00 Mechanical Ventilator 03/08/20 00:00 23 Mechanical Ventilator 90 03/08/20 00:00 92/64 03/08/20 00:00 90 03/08/20 00:00 103 21 88/64 (72) 95 03/07/20 23:30 102 20 90 03/07/20 23:00 23 Mechanical Ventilator 90 03/07/20 23:00 123/66 03/07/20 23:00 108 20 123/66 (85) 95 03/07/20 22:30 111 19 117/70 (86) 94 03/07/20 22:00 108 23 107/70 (82) 95 03/07/20 22:00 22 Mechanical Ventilator 90 03/07/20 22:00 107/70 03/07/20 21:30 109 22 118/67 (84) 97 03/07/20 21:00 90 03/07/20 21:00 103 03/07/20 21:00 24 Mechanical Ventilator 90 03/07/20 21:00 115/63 03/07/20 21:00 106 27 115/63 (80) 94 03/07/20 20:30 107 23 120/58 (78) 95 03/07/20 20:00 22 Mechanical Ventilator 90 03/07/20 20:00 117/70 03/07/20 20:00 98.3 103 22 122/53 (76) 95 03/07/20 20:00 Mechanical Ventilator 03/07/20 19:30 104 25 104/55 (71) 96 03/07/20 19:30 107 25 90 03/07/20 19:25 117/63 03/07/20 19:00 23 Mechanical Ventilator 90 03/07/20 19:00 109/70 03/07/20 19:00 106 23 109/70 (83) 96 03/07/20 18:00 21 Mechanical Ventilator 03/07/20 18:00 125/80 03/07/20 18:00 104 21 125/80 (95) 96 03/07/20 17:51 99 20 80/52 (61) 95 03/07/20 17:45 103 21 93/63 (73) 95 03/07/20 17:37 104 24 110/59 (76) 95 03/07/20 17:30 104 22 118/59 (78) 94 03/07/20 17:15 103 21 116/64 (81) 96 03/07/20 17:00 129/59 03/07/20 17:00 97.4 105 23 129/59 (82) 95 03/07/20 16:39 106 24 90 03/07/20 16:15 105 22 128/62 (84) 96 03/07/20 16:00 90 03/07/20 16:00 103 20 131/72 (91) 97 03/07/20 16:00 20 Mechanical Ventilator 03/07/20 16:00 131/72 03/07/20 16:00 105 03/07/20 16:00 Mechanical Ventilator 03/07/20 15:30 100 21 90 03/07/20 15:15 103 23 123/68 (86) 96 03/07/20 15:06 22 Mechanical Ventilator 03/07/20 15:00 103 23 131/71 (91) 95 03/07/20 15:00 23 Mechanical Ventilator 03/07/20 15:00 131/71 03/07/20 14:30 101 22 127/63 (84) 95 03/07/20 14:15 104 25 125/65 (85) 94 03/07/20 14:15 27 Mechanical Ventilator 03/07/20 14:00 106 27 123/56 (78) 90 03/07/20 14:00 27 Mechanical Ventilator 03/07/20 14:00 123/56 03/07/20 14:00 90 03/07/20 13:41 108 28 80 03/07/20 13:30 105 26 119/79 (92) 91 03/07/20 13:00 103 23 134/57 (82) 94 03/07/20 13:00 23 Mechanical Ventilator 03/07/20 13:00 134/57 03/07/20 12:45 117/58 03/07/20 12:00 Mechanical Ventilator 03/07/20 12:00 97.7 96 20 117/58 (77) 94 03/07/20 12:00 20 Mechanical Ventilator 03/07/20 12:00 117/58 03/07/20 12:00 93 03/07/20 12:00 80 03/07/20 11:50 20 Mechanical Ventilator 03/07/20 11:30 91 20 95/49 (64) 94 03/07/20 11:15 93 20 107/48 (67) 94 03/07/20 11:00 20 Mechanical Ventilator 03/07/20 11:00 96/47 03/07/20 11:00 91 20 96/47 (63) 93 03/07/20 10:45 100 107/48 03/07/20 10:45 91 20 89/51 (64) 93 03/07/20 10:43 93 20 80 03/07/20 10:30 93 20 95/43 (60) 93 03/07/20 10:15 94 20 91/47 (62) 92 03/07/20 10:00 20 Mechanical Ventilator 03/07/20 10:00 94/48 03/07/20 10:00 95 20 94/48 (63) 92 Intake and Output 03/07/20 03/08/20 19:00 07:00 Intake Total 1260.75 ml 1710 ml Output Total 865 ml 860 ml Balance 395.75 ml 850 ml Free Water 120 ml IV Total 1140.75 ml 1380 ml Tube Feeding 120 ml 210 ml Output Urine Total 420 ml 500 ml Chest Tube Drainage Total 445 ml 360 ml Laboratory Tests 03/08/20 05:30: White Blood Count 15.1H, Red Blood Count 3.19L, Hemoglobin 10.1L, Hematocrit 29.9L, Mean Corpuscular Volume 94, Mean Corpuscular Hemoglobin 31.8H, Mean Corpuscular Hemoglobin Concent 33.9, Red Cell Distribution Width 15.4H, Platelet Count 32#L, Mean Platelet Volume 9.4, Neutrophils (%) (Auto) , Lymphocytes (%) (Auto) , Monocytes (%) (Auto) , Eosinophils (%) (Auto) , Basophils (%) (Auto) , Neutrophils % (Manual) [Pending], Lymphocytes % (Manual) [Pending], Platelet Estimate [Pending], Platelet Morphology [Pending] 03/08/20 05:45: Sodium Level 130L, Potassium Level 4.5, Chloride Level 94L, Carbon Dioxide Level 25, Anion Gap 11, Blood Urea Nitrogen 37H, Creatinine 1.5H, Estimat Glomerular Filtration Rate 45.5, Glucose Level 116H, Calcium Level 7.3L, Total Bilirubin 7.3H, Direct Bilirubin 5.3H, Aspartate Amino Transf (AST/SGOT) 43H, Alanine Aminotransferase (ALT/SGPT) 29, Alkaline Phosphatase 173H, Total Protein 5.4L, Albumin 1.9L, Globulin 3.5, Albumin/Globulin Ratio 0.5L Height (Feet): 5 Height (Inches): 5.00 Weight (Pounds): 146 Objective General: intubated, sedated, improved jaundice HEENT: NCAT, ETT in place, OG tube in place CV: Sinus Tachycardic on tele Pulm: equal rise in lungs, left chest tube draining 900 cc orange fluid per nurse GI: abd appears non-distended Ext: No lower extremity edema bilaterally Gosia Nunez M.D. March 08, 2020 09:40
[2020-03-08] MEDS: Phenylephrine 50 MG in D5W 245 ML IV SCH ×2 (10:45→20:58)
--- NOTE | 2020-03-08 12:21 | Cardiac Electrophysiology PN ---
Assessment/Plan Assessment/Plan 1. Respiratory failure due to COVID pneumonia and CHF as BNP is more than 2000. Echo EF 50%. His white count however is only 7.2 with lymphopenia On the Vent 100% Fio2, No PEEP 2. Septic shock likely due to pneumonia and dehydration. Maxed out on Levo and Abx. 3. CXR, Since 02/26/2020, interim development of small bilateral pneumothoraces, right greater than left, and extensive subcutaneous emphysema. There may also be minimal pneumomediastinum. S/P Left chest tube 03/02/20 4. Hypernatremia, resolved with IV fluids. 5. Dehydration. 6. Severe anemia s/p 2 units PRBC DW RN Subjective Subjective In ICU , maxed out on Levo on the vent with Fio2 100% and No PEEP . EF 50%. Covid PCR is positive. S/P Left chest tube placement 03/02/[address] Sales and draining to water seal Had 2 units of PRBC Objective Last 24 Hour Vital Signs Date Time Temp Pulse Resp B/P (MAP) Pulse Ox O2 Delivery O2 Flow Rate FiO2 03/08/20 12:00 Mechanical Ventilator 03/08/20 11:00 101 20 108/46 (66) 97 03/08/20 11:00 101 20 108/46 (66) 97 03/08/20 11:00 20 Mechanical Ventilator 03/08/20 11:00 108/46 03/08/20 10:45 102 21 109/49 (69) 97 03/08/20 10:30 103 20 110/45 (66) 97 03/08/20 10:15 103 20 109/47 (67) 97 03/08/20 10:04 104 20 105/43 (63) 98 03/08/20 10:03 104 20 100/41 (60) 98 03/08/20 10:00 101 22 88/52 (64) 98 03/08/20 10:00 22 Mechanical Ventilator 03/08/20 10:00 88/52 03/08/20 09:35 105 21 112/48 (69) 97 03/08/20 09:32 104 20 86/47 (60) 96 03/08/20 09:30 86/47 03/08/20 09:19 107 21 93/40 (57) 95 03/08/20 09:17 107 20 89/46 (60) 94 5/12/20 09:15 106 20 82/43 (56) 95 03/08/20 09:07 109 20 90/44 (59) 95 03/08/20 09:00 22 Mechanical Ventilator 03/08/20 09:00 99/48 03/08/20 09:00 109 21 99/48 (65) 92 03/08/20 09:00 110 03/08/20 08:47 107 22 124/58 (80) 93 03/08/20 08:35 113 20 113/52 (72) 92 03/08/20 08:30 97.8 111 23 87/68 (74) 91 03/08/20 08:21 109/56 03/08/20 08:15 108 23 98/58 (71) 93 03/08/20 08:00 109 22 96/58 (71) 93 03/08/20 08:00 Mechanical Ventilator 03/08/20 08:00 22 Mechanical Ventilator 03/08/20 08:00 96/58 03/08/20 08:00 100 03/08/20 07:29 108 23 100 03/08/20 07:00 110 19 106/56 (73) 91 03/08/20 07:00 23 Mechanical Ventilator 90 03/08/20 07:00 109/56 03/08/20 06:30 110 22 03/08/20 06:16 98.3 03/08/20 06:00 112 24 114/58 (76) 93 03/08/20 06:00 24 Mechanical Ventilator 90 03/08/20 06:00 114/58 03/08/20 05:32 22 Mechanical Ventilator 80 03/08/20 05:30 110 24 101/58 (72) 89 03/08/20 05:00 109 23 114/65 (81) 91 03/08/20 05:00 22 Mechanical Ventilator 90 03/08/20 05:00 114/65 03/08/20 04:30 108 24 109/59 (76) 92 03/08/20 04:00 98.3 107 22 101/70 (80) 95 03/08/20 04:00 90 03/08/20 04:00 23 Mechanical Ventilator 90 03/08/20 04:00 101/70 03/08/20 04:00 103 03/08/20 04:00 Mechanical Ventilator 03/08/20 03:30 108 22 111/81 (91) 95 03/08/20 03:30 108 23 90 03/08/20 03:00 108 22 102/79 (87) 95 03/08/20 03:00 23 Mechanical Ventilator 90 03/08/20 03:00 102/79 03/08/20 02:30 108 23 103/61 (75) 95 03/08/20 02:28 114/58 03/08/20 02:00 23 Mechanical Ventilator 90 03/08/20 02:00 115/57 03/08/20 02:00 111 23 115/57 (76) 95 03/08/20 01:30 110 22 111/62 (78) 96 03/08/20 01:00 110 23 106/90 (95) 95 03/08/20 01:00 22 Mechanical Ventilator 90 03/08/20 01:00 106/90 03/08/20 00:30 107 21 128/61 (83) 94 03/08/20 00:00 107 03/08/20 00:00 Mechanical Ventilator 03/08/20 00:00 23 Mechanical Ventilator 90 03/08/20 00:00 92/64 03/08/20 00:00 90 03/08/20 00:00 103 21 88/64 (72) 95 03/07/20 23:30 102 20 90 03/07/20 23:00 23 Mechanical Ventilator 90 03/07/20 23:00 123/66 03/07/20 23:00 108 20 123/66 (85) 95 03/07/20 22:30 111 19 117/70 (86) 94 03/07/20 22:00 108 23 107/70 (82) 95 03/07/20 22:00 22 Mechanical Ventilator 90 03/07/20 22:00 107/70 03/07/20 21:30 109 22 118/67 (84) 97 03/07/20 21:00 90 03/07/20 21:00 103 03/07/20 21:00 24 Mechanical Ventilator 90 03/07/20 21:00 115/63 03/07/20 21:00 106 27 115/63 (80) 94 03/07/20 20:30 107 23 120/58 (78) 95 03/07/20 20:00 22 Mechanical Ventilator 90 03/07/20 20:00 117/70 03/07/20 20:00 98.3 103 22 122/53 (76) 95 03/07/20 20:00 Mechanical Ventilator 03/07/20 19:30 104 25 104/55 (71) 96 03/07/20 19:30 107 25 90 03/07/20 19:25 117/63 03/07/20 19:00 23 Mechanical Ventilator 90 03/07/20 19:00 109/70 03/07/20 19:00 106 23 109/70 (83) 96 03/07/20 18:00 21 Mechanical Ventilator 03/07/20 18:00 125/80 03/07/20 18:00 104 21 125/80 (95) 96 03/07/20 17:51 99 20 80/52 (61) 95 03/07/20 17:45 103 21 93/63 (73) 95 03/07/20 17:37 104 24 110/59 (76) 95 03/07/20 17:30 104 22 118/59 (78) 94 03/07/20 17:15 103 21 116/64 (81) 96 03/07/20 17:00 129/59 03/07/20 17:00 97.4 105 23 129/59 (82) 95 03/07/20 16:39 106 24 90 03/07/20 16:15 105 22 128/62 (84) 96 03/07/20 16:00 90 03/07/20 16:00 103 20 131/72 (91) 97 03/07/20 16:00 20 Mechanical Ventilator 03/07/20 16:00 131/72 03/07/20 16:00 105 03/07/20 16:00 Mechanical Ventilator 03/07/20 15:30 100 21 90 03/07/20 15:15 103 23 123/68 (86) 96 03/07/20 15:06 22 Mechanical Ventilator 03/07/20 15:00 103 23 131/71 (91) 95 03/07/20 15:00 23 Mechanical Ventilator 03/07/20 15:00 131/71 03/07/20 14:30 101 22 127/63 (84) 95 03/07/20 14:15 104 25 125/65 (85) 94 03/07/20 14:15 27 Mechanical Ventilator 03/07/20 14:00 106 27 123/56 (78) 90 03/07/20 14:00 27 Mechanical Ventilator 03/07/20 14:00 123/56 03/07/20 14:00 90 03/07/20 13:41 108 28 80 03/07/20 13:30 105 26 119/79 (92) 91 03/07/20 13:00 103 23 134/57 (82) 94 03/07/20 13:00 23 Mechanical Ventilator 03/07/20 13:00 134/57 03/07/20 12:45 117/58 Intake and Output 03/07/20 03/08/20 19:00 07:00 Intake Total 1260.75 ml 1710 ml Output Total 865 ml 860 ml Balance 395.75 ml 850 ml Free Water 120 ml IV Total 1140.75 ml 1380 ml Tube Feeding 120 ml 210 ml Output Urine Total 420 ml 500 ml Chest Tube Drainage Total 445 ml 360 ml Laboratory Tests Test 03/08/20 05:30 03/08/20 05:45 White Blood Count 15.1 K/UL (4.8-10.8) H Red Blood Count 3.19 M/UL (4.70-6.10) L Hemoglobin 10.1 G/DL (14.2-18.0) L Hematocrit 29.9 % (42.0-52.0) L Mean Corpuscular Volume 94 FL (80-99) Mean Corpuscular Hemoglobin 31.8 PG (27.0-31.0) H Mean Corpuscular Hemoglobin Concent 33.9 G/DL (32.0-36.0) Red Cell Distribution Width 15.4 % (11.6-14.8) H Platelet Count 32 K/UL (150-450) #L Mean Platelet Volume 9.4 FL (6.5-10.1) Neutrophils (%) (Auto) % (45.0-75.0) Lymphocytes (%) (Auto) % (20.0-45.0) Monocytes (%) (Auto) % (1.0-10.0) Eosinophils (%) (Auto) % (0.0-3.0) Basophils (%) (Auto) % (0.0-2.0) Differential Total Cells Counted 100 Neutrophils % (Manual) 47 % (45-75) Lymphocytes % (Manual) 3 % (20-45) L Monocytes % (Manual) 2 % (1-10) Eosinophils % (Manual) 0 % (0-3) Basophils % (Manual) 0 % (0-2) Myelocytes % 1 % (0-0) H Band Neutrophils 47 % (0-8) H Nucleated Red Blood Cells 1 /100 WBC Platelet Estimate Decreased L Platelet Morphology Normal Anisocytosis 1+ Sodium Level 130 MMOL/L (136-145) L Potassium Level 4.5 MMOL/L (3.5-5.1) Chloride Level 94 MMOL/L (98-107) L Carbon Dioxide Level 25 MMOL/L (21-32) Anion Gap 11 mmol/L (5-15) Blood Urea Nitrogen 37 mg/dL (7-18) H Creatinine 1.5 MG/DL (0.55-1.30) H Estimat Glomerular Filtration Rate 45.5 mL/min (>60) Glucose Level 116 MG/DL (74-106) H Calcium Level 7.3 MG/DL (8.5-10.1) L Total Bilirubin 7.3 MG/DL (0.2-1.0) H Direct Bilirubin 5.3 MG/DL (0.0-0.3) H Aspartate Amino Transf (AST/SGOT) 43 U/L (15-37) H Alanine Aminotransferase (ALT/SGPT) 29 U/L (12-78) Alkaline Phosphatase 173 U/L (46-116) H Total Protein 5.4 G/DL (6.4-8.2) L Albumin 1.9 G/DL (3.4-5.0) L Globulin 3.5 g/dL Albumin/Globulin Ratio 0.5 (1.0-2.7) L Microbiology Date/Time Source Procedure Growth Status 03/06/20 15:15 Blood Blood Culture - Preliminary NO GROWTH AFTER 24 HOURS Resulted 03/06/20 15:15 Blood Blood Culture - Preliminary NO GROWTH AFTER 24 HOURS Resulted 03/07/20 04:25 Sputum Gram Stain Pending Resulted 03/07/20 04:25 Sputum Culture - Preliminary Gram Negative Bacillus 1 Resulted 03/07/20 04:25 Urine,Clean Catch Urine Culture - Preliminary NO GROWTH AFTER 24 HOURS Resulted 03/06/20 12:05 Urine,Clean Catch Urine Culture - Preliminary NO GROWTH AFTER 24 HOURS Resulted Objective HEAD AND NECK: No JVD orally intubated. LUNGS: Decreased breath sounds and coarse rhonchi. SQ emphesyma Left chest tube is in CARDIOVASCULAR: Regular S1 and S2 with no gallop. ABDOMEN: Soft. EXTREMITIES: No pitting edema. Deric Garcia MD March 08, 2020 12:21
--- NOTE | 2020-03-08 12:24 | Pulmonology Progress Note ---
Subjective ROS Limited/Unobtainable: Yes Interval Events: Remains intubtaed; was intubated on 02/22/20 Constitutional: Reports: fever, other - on vent, on pressors HEENT: Repors: no symptoms Respiratory: Reports: no symptoms Cardiovascular: Reports: no symptoms Gastrointestinal/Abdominal: Reports: other - no diarrhea ; Denies: nausea, vomiting, diarrhea Genitourinary: Reports: no symptoms Psychiatric: Reports: other - NA Skin: Denies: rash Endocrine: Reports: no symptoms Musculoskeletal: Reports: other - NA Allergies: Coded Allergies: No Known Allergies (Unverified , 01/19/19) All Systems: reviewed and negative except above Subjective seen and evaluated Discussed with RN Left chest tube placed by surgery Objective Last 24 Hour Vital Signs Date Time Temp Pulse Resp B/P (MAP) Pulse Ox O2 Delivery O2 Flow Rate FiO2 03/08/20 12:00 97.8 101 20 106/41 (62) 95 03/08/20 12:00 100 03/08/20 12:00 Mechanical Ventilator 03/08/20 11:00 101 20 108/46 (66) 97 03/08/20 11:00 101 20 108/46 (66) 97 03/08/20 11:00 20 Mechanical Ventilator 03/08/20 11:00 108/46 03/08/20 10:45 102 21 109/49 (69) 97 03/08/20 10:30 103 20 110/45 (66) 97 03/08/20 10:15 103 20 109/47 (67) 97 03/08/20 10:04 104 20 105/43 (63) 98 03/08/20 10:03 104 20 100/41 (60) 98 03/08/20 10:00 101 22 88/52 (64) 98 03/08/20 10:00 22 Mechanical Ventilator 03/08/20 10:00 88/52 03/08/20 09:35 105 21 112/48 (69) 97 03/08/20 09:32 104 20 86/47 (60) 96 03/08/20 09:30 86/47 03/08/20 09:19 107 21 93/40 (57) 95 03/08/20 09:17 107 20 89/46 (60) 94 03/08/20 09:15 106 20 82/43 (56) 95 03/08/20 09:07 109 20 90/44 (59) 95 03/08/20 09:00 22 Mechanical Ventilator 03/08/20 09:00 99/48 03/08/20 09:00 109 21 99/48 (65) 92 03/08/20 09:00 110 03/08/20 08:47 107 22 124/58 (80) 93 03/08/20 08:35 113 20 113/52 (72) 92 03/08/20 08:30 97.8 111 23 87/68 (74) 91 03/08/20 08:21 109/56 03/08/20 08:15 108 23 98/58 (71) 93 03/08/20 08:00 109 22 96/58 (71) 93 03/08/20 08:00 Mechanical Ventilator 03/08/20 08:00 22 Mechanical Ventilator 03/08/20 08:00 96/58 03/08/20 08:00 100 03/08/20 07:29 108 23 100 03/08/20 07:00 110 19 106/56 (73) 91 03/08/20 07:00 23 Mechanical Ventilator 90 03/08/20 07:00 109/56 03/08/20 06:30 110 22 03/08/20 06:16 98.3 03/08/20 06:00 112 24 114/58 (76) 93 03/08/20 06:00 24 Mechanical Ventilator 90 03/08/20 06:00 114/58 03/08/20 05:32 22 Mechanical Ventilator 80 03/08/20 05:30 110 24 101/58 (72) 89 03/08/20 05:00 109 23 114/65 (81) 91 03/08/20 05:00 22 Mechanical Ventilator 90 03/08/20 05:00 114/65 03/08/20 04:30 108 24 109/59 (76) 92 03/08/20 04:00 98.3 107 22 101/70 (80) 95 03/08/20 04:00 90 03/08/20 04:00 23 Mechanical Ventilator 90 03/08/20 04:00 101/70 03/08/20 04:00 103 03/08/20 04:00 Mechanical Ventilator 03/08/20 03:30 108 22 111/81 (91) 95 03/08/20 03:30 108 23 90 03/08/20 03:00 108 22 102/79 (87) 95 03/08/20 03:00 23 Mechanical Ventilator 90 03/08/20 03:00 102/79 03/08/20 02:30 108 23 103/61 (75) 95 03/08/20 02:28 114/58 03/08/20 02:00 23 Mechanical Ventilator 90 03/08/20 02:00 115/57 03/08/20 02:00 111 23 115/57 (76) 95 03/08/20 01:30 110 22 111/62 (78) 96 03/08/20 01:00 110 23 106/90 (95) 95 03/08/20 01:00 22 Mechanical Ventilator 90 03/08/20 01:00 106/90 03/08/20 00:30 107 21 128/61 (83) 94 03/08/20 00:00 107 03/08/20 00:00 Mechanical Ventilator 03/08/20 00:00 23 Mechanical Ventilator 90 03/08/20 00:00 92/64 03/08/20 00:00 90 03/08/20 00:00 103 21 88/64 (72) 95 03/07/20 23:30 102 20 90 03/07/20 23:00 23 Mechanical Ventilator 90 03/07/20 23:00 123/66 03/07/20 23:00 108 20 123/66 (85) 95 03/07/20 22:30 111 19 117/70 (86) 94 03/07/20 22:00 108 23 107/70 (82) 95 03/07/20 22:00 22 Mechanical Ventilator 90 03/07/20 22:00 107/70 03/07/20 21:30 109 22 118/67 (84) 97 03/07/20 21:00 90 03/07/20 21:00 103 03/07/20 21:00 24 Mechanical Ventilator 90 03/07/20 21:00 115/63 03/07/20 21:00 106 27 115/63 (80) 94 03/07/20 20:30 107 23 120/58 (78) 95 03/07/20 20:00 22 Mechanical Ventilator 90 03/07/20 20:00 117/70 03/07/20 20:00 98.3 103 22 122/53 (76) 95 03/07/20 20:00 Mechanical Ventilator 03/07/20 19:30 104 25 104/55 (71) 96 03/07/20 19:30 107 25 90 03/07/20 19:25 117/63 03/07/20 19:00 23 Mechanical Ventilator 90 03/07/20 19:00 109/70 03/07/20 19:00 106 23 109/70 (83) 96 03/07/20 18:00 21 Mechanical Ventilator 03/07/20 18:00 125/80 03/07/20 18:00 104 21 125/80 (95) 96 03/07/20 17:51 99 20 80/52 (61) 95 03/07/20 17:45 103 21 93/63 (73) 95 03/07/20 17:37 104 24 110/59 (76) 95 03/07/20 17:30 104 22 118/59 (78) 94 03/07/20 17:15 103 21 116/64 (81) 96 03/07/20 17:00 129/59 03/07/20 17:00 97.4 105 23 129/59 (82) 95 03/07/20 16:39 106 24 90 03/07/20 16:15 105 22 128/62 (84) 96 03/07/20 16:00 90 03/07/20 16:00 103 20 131/72 (91) 97 03/07/20 16:00 20 Mechanical Ventilator 03/07/20 16:00 131/72 03/07/20 16:00 105 03/07/20 16:00 Mechanical Ventilator 03/07/20 15:30 100 21 90 03/07/20 15:15 103 23 123/68 (86) 96 03/07/20 15:06 22 Mechanical Ventilator 03/07/20 15:00 103 23 131/71 (91) 95 03/07/20 15:00 23 Mechanical Ventilator 03/07/20 15:00 131/71 03/07/20 14:30 101 22 127/63 (84) 95 03/07/20 14:15 104 25 125/65 (85) 94 03/07/20 14:15 27 Mechanical Ventilator 03/07/20 14:00 106 27 123/56 (78) 90 03/07/20 14:00 27 Mechanical Ventilator 03/07/20 14:00 123/56 03/07/20 14:00 90 03/07/20 13:41 108 28 80 03/07/20 13:30 105 26 119/79 (92) 91 03/07/20 13:00 103 23 134/57 (82) 94 03/07/20 13:00 23 Mechanical Ventilator 03/07/20 13:00 134/57 03/07/20 12:45 117/58 Intake and Output 03/07/20 03/08/20 19:00 07:00 Intake Total 1260.75 ml 1710 ml Output Total 865 ml 860 ml Balance 395.75 ml 850 ml Free Water 120 ml IV Total 1140.75 ml 1380 ml Tube Feeding 120 ml 210 ml Output Urine Total 420 ml 500 ml Chest Tube Drainage Total 445 ml 360 ml General Appearance: other - on vent and pressors HEENT: normocephalic, atraumatic, anicteric Respiratory/Chest: chest wall non-tender, decreased breath sounds, other - hAS SUB CUT EMPHYSEMA LEWFT SIDE Cardiovascular: normal peripheral pulses Abdomen: normal bowel sounds, soft, non tender, no organomegaly, non distended Genitourinary: other - + rush Extremities: no cyanosis Skin: no rash Neurologic/Psychiatric: motor weakness, other - lethargic, weak Lymphatic: no neck adenopathy Musculoskeletal: no effusion Microbiology Date/Time Source Procedure Growth Status 03/06/20 15:15 Blood Blood Culture - Preliminary NO GROWTH AFTER 24 HOURS Resulted 03/06/20 15:15 Blood Blood Culture - Preliminary NO GROWTH AFTER 24 HOURS Resulted 03/07/20 04:25 Sputum Gram Stain Pending Resulted 03/07/20 04:25 Sputum Culture - Preliminary Gram Negative Bacillus 1 Resulted 03/07/20 04:25 Urine,Clean Catch Urine Culture - Preliminary NO GROWTH AFTER 24 HOURS Resulted 03/06/20 12:05 Urine,Clean Catch Urine Culture - Preliminary NO GROWTH AFTER 24 HOURS Resulted Laboratory Tests 03/08/20 05:30: White Blood Count 15.1H, Red Blood Count 3.19L, Hemoglobin 10.1L, Hematocrit 29.9L, Mean Corpuscular Volume 94, Mean Corpuscular Hemoglobin 31.8H, Mean Corpuscular Hemoglobin Concent 33.9, Red Cell Distribution Width 15.4H, Platelet Count 32#L, Mean Platelet Volume 9.4, Neutrophils (%) (Auto) , Lymphocytes (%) (Auto) , Monocytes (%) (Auto) , Eosinophils (%) (Auto) , Basophils (%) (Auto) , Differential Total Cells Counted 100, Neutrophils % ( Manual) 47, Lymphocytes % (Manual) 3L, Monocytes % (Manual) 2, Eosinophils % ( Manual) 0, Basophils % (Manual) 0, Myelocytes % 1H, Band Neutrophils 47H, Nucleated Red Blood Cells 1, Platelet Estimate DecreasedL, Platelet Morphology Normal, Anisocytosis 1+ 03/08/20 05:45: Sodium Level 130L, Potassium Level 4.5, Chloride Level 94L, Carbon Dioxide Level 25, Anion Gap 11, Blood Urea Nitrogen 37H, Creatinine 1.5H, Estimat Glomerular Filtration Rate 45.5, Glucose Level 116H, Calcium Level 7.3L, Total Bilirubin 7.3H, Direct Bilirubin 5.3H, Aspartate Amino Transf (AST/SGOT) 43H, Alanine Aminotransferase (ALT/SGPT) 29, Alkaline Phosphatase 173H, Total Protein 5.4L, Albumin 1.9L, Globulin 3.5, Albumin/Globulin Ratio 0.5L Current Medications Medications (Trade) Dose Ordered Sig/Cirilo Route PRN Reason Start Time Stop Time Status Last Admin Dose Admin Acetaminophen (Tylenol) 650 mg Q4H PRN ORAL Fever 02/22/20 14:15 03/23/20 14:14 02/28/20 17:52 Acetaminophen (Tylenol) 650 mg Q4H PRN ORAL Mild Pain (Pain Scale 1-3) 02/22/20 14:15 03/23/20 14:14 03/03/20 17:31 Acetaminophen (Tylenol) 650 mg Q4H PRN RECTAL Mild Pain (Pain Scale 1-3) 02/22/20 14:15 03/23/20 14:14 02/22/20 21:28 Acetaminophen (Tylenol) 650 mg Q4H PRN RECTAL FEVER 02/22/20 14:15 03/23/20 14:14 03/06/20 04:20 Cefepime HCl 2 gm/ Dextrose 100 ml @ 200 mls/hr Q12HR IVPB 03/06/20 21:00 03/13/20 20:59 03/08/20 08:21 Chlorhexidine Gluconate (Maira-Hex 2%) 1 applic DAILY@2000 TOPIC 02/23/20 20:00 05/23/20 19:59 03/07/20 20:12 Dextrose (Dextrose 50%) 25 ml Q30M PRN IV Hypoglycemia 02/23/20 09:00 05/23/20 08:59 Dextrose (Dextrose 50%) 50 ml Q30M PRN IV Hypoglycemia 02/23/20 09:00 05/23/20 08:59 Diphenhydramine HCl (Benadryl) 25 mg Q6H PRN ORAL Itching/Pruritis 02/22/20 14:15 03/23/20 14:14 02/26/20 01:34 Fentanyl Citrate 2500 mcg/Sodium Chloride 250 ml @ 0 mls/hr Q24H IV 03/01/20 19:45 03/08/20 19:44 03/08/20 05:32 Fluconazole/ Sodium Chloride 200 ml @ 200 mls/hr Q24H IV 03/06/20 20:00 03/13/20 19:59 03/07/20 20:12 Insulin Aspart (NovoLOG) Q6HR SUBQ 02/28/20 18:00 05/28/20 17:59 03/08/20 11:47 Metoclopramide HCl (Reglan) 5 mg Q6HR IVP 03/01/20 12:00 03/31/20 11:59 03/08/20 05:26 Metronidazole (Flagyl) 500 mg EVERY 8 HOURS ORAL 03/06/20 22:00 03/13/20 21:59 03/08/20 05:26 Midazolam HCl 100 ml @ 0 mls/hr Q24H IV 02/26/20 15:06 05/26/20 15:05 02/26/20 15:48 Norepinephrine Bitartrate 8 mg/ Dextrose 500 ml @ 0 mls/hr Q24H IV 02/23/20 19:01 03/24/20 19:00 03/08/20 08:21 Pantoprazole (Protonix) 40 mg DAILY IVP 02/23/20 09:30 03/24/20 09:29 03/08/20 08:20 Phenylephrine HCl 50 mg/Dextrose 250 ml @ 6 mls/hr Q24H IV 02/29/20 10:45 03/30/20 10:44 03/04/20 04:43 Vancomycin HCl (Vanco rx to dose) 1 ea DAILY PRN MISC Per rx protocol 03/06/20 18:15 04/05/20 18:14 Assessment/Plan Assessment/Plan IMPRESSION: 1. Respiratory failure. 2. Bilateral pneumonia. + COVID 19 3. Pulmonary edema. 4. Diabetes mellitus. 5. Left PTX with subcut emphysema; s/p chest tube DISCUSSION: Positive COVID 19 pcr The patient is critically ill at this point in time. Poor prognosis Continue pressors Continue broad-spectrum antibiotics. Continue respiratory support; will adjust vent settings I will follow carefully. S/p chest tube Continue Ac mode 100 FiO2 and PEEP 5 SaO2 97% Decreased PEEP due to PTX Andrea Bland M.D. Andrea Bland MD March 08, 2020 12:24
--- NOTE | 2020-03-08 12:41 | Diagnostic Imaging Report ---
Indication: Dyspnea Technique: One view of the chest Comparison: 03/05/2020 Findings: Bilateral extensive infiltrates are again demonstrated. Minimal apical pneumothorax is demonstrated. Left chest tube remains in place. Previously demonstrated subcutaneous emphysema has improved markedly. There is increased pleural fluid bilaterally. There is worsening of dense consolidation in the bilateral lungs, particularly on the right. Stable satisfactory positions of orogastric tube and right jugular central venous catheter The endotracheal tube projects at the level of the holly. Impression: Increasing bilateral pleural effusions Increasing bilateral parenchymal consolidation Low position of endotracheal tube. This finding was phoned to patient's nurse at the time of interpretation. Markedly improved subcutaneous emphysema
--- NOTE | 2020-03-08 12:44 | Diagnostic Imaging Report ---
Indication: Abdominal pain Technique: Supine view of the abdomen Comparison: 02/23/2020 Findings: Orogastric tube is in place, tip projected at the level gastric antrum in good position. There is a positive bowel gas. There are degenerative changes of the lumbar spine. There is a left hip fracture deformity Impression: No acute process Satisfactory orogastric tube position Left hip fracture deformity. Note that acute hip fracture was visualized on a prior radiograph of 01/19/2019
--- NOTE | 2020-03-08 13:02 | Surgery Progress Note ---
Surgery Progress Note Subjective Procedure Performed Left tube thoracostomy Additional Comments chest tube still with significant output cont water seal on support non responsive Objective Last 24 Hour Vital Signs Date Time Temp Pulse Resp B/P (MAP) Pulse Ox O2 Delivery O2 Flow Rate FiO2 03/08/20 12:00 97.8 101 20 106/41 (62) 95 03/08/20 12:00 100 03/08/20 12:00 Mechanical Ventilator 03/08/20 11:28 101 20 100 03/08/20 11:00 101 20 108/46 (66) 97 03/08/20 11:00 101 20 108/46 (66) 97 03/08/20 11:00 20 Mechanical Ventilator 03/08/20 11:00 108/46 03/08/20 10:45 101 106/41 03/08/20 10:45 102 21 109/49 (69) 97 03/08/20 10:30 103 20 110/45 (66) 97 03/08/20 10:15 103 20 109/47 (67) 97 03/08/20 10:04 104 20 105/43 (63) 98 03/08/20 10:03 104 20 100/41 (60) 98 03/08/20 10:00 101 22 88/52 (64) 98 03/08/20 10:00 22 Mechanical Ventilator 03/08/20 10:00 88/52 03/08/20 09:35 105 21 112/48 (69) 97 03/08/20 09:32 104 20 86/47 (60) 96 03/08/20 09:30 86/47 03/08/20 09:19 107 21 93/40 (57) 95 03/08/20 09:17 107 20 89/46 (60) 94 03/08/20 09:15 106 20 82/43 (56) 95 03/08/20 09:07 109 20 90/44 (59) 95 03/08/20 09:00 22 Mechanical Ventilator 03/08/20 09:00 99/48 03/08/20 09:00 109 21 99/48 (65) 92 03/08/20 09:00 110 03/08/20 08:47 107 22 124/58 (80) 93 03/08/20 08:35 113 20 113/52 (72) 92 03/08/20 08:30 97.8 111 23 87/68 (74) 91 03/08/20 08:21 109/56 03/08/20 08:15 108 23 98/58 (71) 93 03/08/20 08:00 109 22 96/58 (71) 93 03/08/20 08:00 Mechanical Ventilator 03/08/20 08:00 22 Mechanical Ventilator 03/08/20 08:00 96/58 03/08/20 08:00 100 03/08/20 07:29 108 23 100 03/08/20 07:00 110 19 106/56 (73) 91 03/08/20 07:00 23 Mechanical Ventilator 90 03/08/20 07:00 109/56 03/08/20 06:30 110 22 03/08/20 06:16 98.3 03/08/20 06:00 112 24 114/58 (76) 93 03/08/20 06:00 24 Mechanical Ventilator 90 03/08/20 06:00 114/58 03/08/20 05:32 22 Mechanical Ventilator 80 03/08/20 05:30 110 24 101/58 (72) 89 03/08/20 05:00 109 23 114/65 (81) 91 03/08/20 05:00 22 Mechanical Ventilator 90 03/08/20 05:00 114/65 03/08/20 04:30 108 24 109/59 (76) 92 03/08/20 04:00 98.3 107 22 101/70 (80) 95 03/08/20 04:00 90 03/08/20 04:00 23 Mechanical Ventilator 90 03/08/20 04:00 101/70 03/08/20 04:00 103 03/08/20 04:00 Mechanical Ventilator 03/08/20 03:30 108 22 111/81 (91) 95 03/08/20 03:30 108 23 90 03/08/20 03:00 108 22 102/79 (87) 95 03/08/20 03:00 23 Mechanical Ventilator 90 03/08/20 03:00 102/79 03/08/20 02:30 108 23 103/61 (75) 95 03/08/20 02:28 114/58 03/08/20 02:00 23 Mechanical Ventilator 90 03/08/20 02:00 115/57 03/08/20 02:00 111 23 115/57 (76) 95 03/08/20 01:30 110 22 111/62 (78) 96 03/08/20 01:00 110 23 106/90 (95) 95 03/08/20 01:00 22 Mechanical Ventilator 90 03/08/20 01:00 106/90 03/08/20 00:30 107 21 128/61 (83) 94 03/08/20 00:00 107 03/08/20 00:00 Mechanical Ventilator 03/08/20 00:00 23 Mechanical Ventilator 90 03/08/20 00:00 92/64 03/08/20 00:00 90 03/08/20 00:00 103 21 88/64 (72) 95 03/07/20 23:30 102 20 90 03/07/20 23:00 23 Mechanical Ventilator 90 03/07/20 23:00 123/66 03/07/20 23:00 108 20 123/66 (85) 95 03/07/20 22:30 111 19 117/70 (86) 94 03/07/20 22:00 108 23 107/70 (82) 95 03/07/20 22:00 22 Mechanical Ventilator 90 03/07/20 22:00 107/70 03/07/20 21:30 109 22 118/67 (84) 97 03/07/20 21:00 90 03/07/20 21:00 103 03/07/20 21:00 24 Mechanical Ventilator 90 03/07/20 21:00 115/63 03/07/20 21:00 106 27 115/63 (80) 94 03/07/20 20:30 107 23 120/58 (78) 95 03/07/20 20:00 22 Mechanical Ventilator 90 03/07/20 20:00 117/70 03/07/20 20:00 98.3 103 22 122/53 (76) 95 03/07/20 20:00 Mechanical Ventilator 03/07/20 19:30 104 25 104/55 (71) 96 03/07/20 19:30 107 25 90 03/07/20 19:25 117/63 03/07/20 19:00 23 Mechanical Ventilator 90 03/07/20 19:00 109/70 03/07/20 19:00 106 23 109/70 (83) 96 03/07/20 18:00 21 Mechanical Ventilator 03/07/20 18:00 125/80 03/07/20 18:00 104 21 125/80 (95) 96 03/07/20 17:51 99 20 80/52 (61) 95 03/07/20 17:45 103 21 93/63 (73) 95 03/07/20 17:37 104 24 110/59 (76) 95 03/07/20 17:30 104 22 118/59 (78) 94 03/07/20 17:15 103 21 116/64 (81) 96 03/07/20 17:00 129/59 03/07/20 17:00 97.4 105 23 129/59 (82) 95 03/07/20 16:39 106 24 90 03/07/20 16:15 105 22 128/62 (84) 96 03/07/20 16:00 90 03/07/20 16:00 103 20 131/72 (91) 97 03/07/20 16:00 20 Mechanical Ventilator 03/07/20 16:00 131/72 03/07/20 16:00 105 03/07/20 16:00 Mechanical Ventilator 03/07/20 15:30 100 21 90 03/07/20 15:15 103 23 123/68 (86) 96 03/07/20 15:06 22 Mechanical Ventilator 03/07/20 15:00 103 23 131/71 (91) 95 03/07/20 15:00 23 Mechanical Ventilator 03/07/20 15:00 131/71 03/07/20 14:30 101 22 127/63 (84) 95 03/07/20 14:15 104 25 125/65 (85) 94 03/07/20 14:15 27 Mechanical Ventilator 03/07/20 14:00 106 27 123/56 (78) 90 03/07/20 14:00 27 Mechanical Ventilator 03/07/20 14:00 123/56 03/07/20 14:00 90 03/07/20 13:41 108 28 80 03/07/20 13:30 105 26 119/79 (92) 91 I&O Intake and Output 03/07/20 03/08/20 19:00 07:00 Intake Total 1260.75 ml 1710 ml Output Total 865 ml 860 ml Balance 395.75 ml 850 ml Free Water 120 ml IV Total 1140.75 ml 1380 ml Tube Feeding 120 ml 210 ml Output Urine Total 420 ml 500 ml Chest Tube Drainage Total 445 ml 360 ml Dressing: other Wound: other Drains: other Cardiovascular: RSR Respiratory: decreased breath sounds Abdomen: soft, non-tender, present bowel sounds Extremities: no cyanosis Laboratory Tests Test 03/08/20 05:30 03/08/20 05:45 White Blood Count 15.1 K/UL (4.8-10.8) H Red Blood Count 3.19 M/UL (4.70-6.10) L Hemoglobin 10.1 G/DL (14.2-18.0) L Hematocrit 29.9 % (42.0-52.0) L Mean Corpuscular Volume 94 FL (80-99) Mean Corpuscular Hemoglobin 31.8 PG (27.0-31.0) H Mean Corpuscular Hemoglobin Concent 33.9 G/DL (32.0-36.0) Red Cell Distribution Width 15.4 % (11.6-14.8) H Platelet Count 32 K/UL (150-450) #L Mean Platelet Volume 9.4 FL (6.5-10.1) Neutrophils (%) (Auto) % (45.0-75.0) Lymphocytes (%) (Auto) % (20.0-45.0) Monocytes (%) (Auto) % (1.0-10.0) Eosinophils (%) (Auto) % (0.0-3.0) Basophils (%) (Auto) % (0.0-2.0) Differential Total Cells Counted 100 Neutrophils % (Manual) 47 % (45-75) Lymphocytes % (Manual) 3 % (20-45) L Monocytes % (Manual) 2 % (1-10) Eosinophils % (Manual) 0 % (0-3) Basophils % (Manual) 0 % (0-2) Myelocytes % 1 % (0-0) H Band Neutrophils 47 % (0-8) H Nucleated Red Blood Cells 1 /100 WBC Platelet Estimate Decreased L Platelet Morphology Normal Anisocytosis 1+ Sodium Level 130 MMOL/L (136-145) L Potassium Level 4.5 MMOL/L (3.5-5.1) Chloride Level 94 MMOL/L (98-107) L Carbon Dioxide Level 25 MMOL/L (21-32) Anion Gap 11 mmol/L (5-15) Blood Urea Nitrogen 37 mg/dL (7-18) H Creatinine 1.5 MG/DL (0.55-1.30) H Estimat Glomerular Filtration Rate 45.5 mL/min (>60) Glucose Level 116 MG/DL (74-106) H Calcium Level 7.3 MG/DL (8.5-10.1) L Total Bilirubin 7.3 MG/DL (0.2-1.0) H Direct Bilirubin 5.3 MG/DL (0.0-0.3) H Aspartate Amino Transf (AST/SGOT) 43 U/L (15-37) H Alanine Aminotransferase (ALT/SGPT) 29 U/L (12-78) Alkaline Phosphatase 173 U/L (46-116) H Total Protein 5.4 G/DL (6.4-8.2) L Albumin 1.9 G/DL (3.4-5.0) L Globulin 3.5 g/dL Albumin/Globulin Ratio 0.5 (1.0-2.7) L Plan Problems: (1) Pneumothorax Assessment & Plan: Patient with bilateral pneumothoraces right slightly larger than left but both are very small. On the left side there is significant amount of subcutaneous emphysema extensively more than anything on the right side. 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 Given the x -ray findings and the extensive subtenons emphysema recommend placing a left- sided chest tube at this time with considerations for right side if necessary. Please see procedure note. Will follow and monitor 2. A.m. chest x-ray. Thank you participate in patient' s care AM CXR may need right chest tube chest tube to water seal cont chest tube f/u cxr Is a tiny sliver of a left apical pneumothorax, apex of the lung approximately 3 mm from the chest wall. There is a slightly larger but still small right apical pneumothorax, with the apex of the lung approximately 14 mm from the edge of the chest wall. There is extensive subcutaneous emphysema, particularly in the left anterior chest wall, but also seen in the bilateral supraclavicular fossae. The inferior right heart border is very well-defined. Uncertain as whether this represents a component of pneumomediastinum or a small medial pneumothorax. Stable tube and line positions, satisfactory. Bilateral infiltrates appear slightly improved as compared to the previous study. Impression: Since 02/26/2020, interim development of small bilateral pneumothoraces, right greater than left, and extensive subcutaneous emphysema. There may also be minimal pneumomediastinum. Bilateral infiltrates have improved somewhat in the interim. (2) Thrombocytopenia (3) Elevated LFTs (4) Diabetes mellitus (5) DVT (deep venous thrombosis) (6) History of hypertension (7) Cerebrovascular accident (CVA) (8) Alzheimer's dementia (9) Debility (10) Respiratory distress (11) Hypotension (12) Respiratory failure with hypoxia (13) Sepsis (14) Suspected COVID-19 virus infection [employer] March 08, 2020 13:02
--- NOTE | 2020-03-08 15:33 | Diagnostic Imaging Report ---
Indication: Post endotracheal tube readjustment Technique: One view of the chest Comparison: 5 hours earlier Findings: Interim retraction of endotracheal tube, tip now projecting approximately 1 cm above the holly. Extensive bilateral dense consolidation and bilateral pleural effusions again demonstrated. Other tubes and lines are stable Impression: Improved position of endotracheal tube
--- NOTE | 2020-03-08 19:30 | Infectious Diseases Prog Note ---
Assessment/Plan Assessment/Plan ASSESSMENT AND PLAN: 1. covid-19 virus infection/pna +, rule out bacterial pna, sepsis, shock, leukocytosis, fevers, vent, pressors, mrsa colonization bc - one bottle - diphtheroids - likely contaminant pneumothorax/subcutaneous emphysema - chest tube fungemia risk, leukocytosis again, febrile \ gram neg pna - diflucan, cefepime, flagyl and vancomycin - f/u on gram neg sputum culture, blood/urine cultures negative - s/p hydroxychloroquine - f/u labs and chest x-ray - condition - critical - icu care 2. Respiratory failure, on vent. 3. ICU care. 4. Pressors. 5. Low potassium or hypokalemia. 6. Diabetes. 7. Hypertension. 8. Alzheimer's. 9. CVA. 10. TIA. 11. DVT. 12. Dementia. 13. Aspiration risk. 14. No known drug allergies. 15. Social history negative. 16. Family history is noncontributory. 17. MAR was noted. 18. Case discussed with RN. 19. Poor prognosis. 20. Skin care protocol. 21. Case discussed with Dr. Nunez. Subjective Constitutional: Reports: other - on vent and pressors ; Denies: fever HEENT: Reports: congestion Respiratory: Reports: shortness of breath Cardiovascular: Reports: other - on pressors Gastrointestinal/Abdominal: Denies: nausea, vomiting, diarrhea Genitourinary: Reports: other - + rush Neurologic: Reports: other - lethargic, weak Psychiatric: Reports: other - NA Skin: Denies: rash Hematologic: Denies: bleeding Musculoskeletal: Reports: other - NA Allergies: Coded Allergies: No Known Allergies (Unverified , 01/19/19) Objective Vital Signs Last 24 Hour Vital Signs Date Time Temp Pulse Resp B/P (MAP) Pulse Ox O2 Delivery O2 Flow Rate FiO2 03/08/20 19:00 109 27 118/50 (72) 93 03/08/20 18:15 118/47 03/08/20 18:00 109 26 118/47 (70) 94 03/08/20 17:30 110 23 119/44 (69) 94 03/08/20 17:00 24 122/47 Mechanical Ventilator 03/08/20 17:00 122/47 03/08/20 17:00 108 24 122/47 (72) 93 03/08/20 16:45 104 29 71/28 (42) 90 03/08/20 16:30 98.1 108 29 131/50 (77) 94 03/08/20 16:15 109 27 130/49 (76) 93 03/08/20 16:00 100 03/08/20 16:00 108 03/08/20 16:00 Mechanical Ventilator 03/08/20 16:00 29 138/50 Mechanical Ventilator 03/08/20 16:00 138/50 03/08/20 16:00 108 29 138/50 (79) 93 03/08/20 15:09 105 25 100 03/08/20 15:06 28 Mechanical Ventilator 03/08/20 15:00 126/46 03/08/20 15:00 104 23 126/46 (72) 94 03/08/20 14:45 104 21 124/47 (72) 95 03/08/20 14:30 104 22 127/54 (78) 96 03/08/20 14:15 102 23 119/45 (69) 97 03/08/20 14:00 103 21 116/51 (72) 97 03/08/20 14:00 116/51 03/08/20 14:00 102 23 116/51 (72) 97 03/08/20 13:45 100 21 111/45 (67) 97 03/08/20 13:36 100 22 108/49 (68) 97 03/08/20 13:32 98 22 93/48 (63) 97 03/08/20 13:30 99 21 109/42 (64) 97 03/08/20 13:30 99/41 03/08/20 13:15 96 20 100/45 (63) 97 03/08/20 13:00 96 20 99/41 (60) 96 03/08/20 13:00 20 99/41 Mechanical Ventilator 03/08/20 13:00 99/41 03/08/20 12:45 98 20 103/42 (62) 96 03/08/20 12:30 99 20 101/44 (63) 96 03/08/20 12:15 100 20 101/44 (63) 95 03/08/20 12:00 97.8 101 20 106/41 (62) 95 03/08/20 12:00 99 03/08/20 12:00 20 106/41 Mechanical Ventilator 03/08/20 12:00 106/41 03/08/20 12:00 100 03/08/20 12:00 Mechanical Ventilator 03/08/20 11:45 100 20 117/43 (67) 94 03/08/20 11:30 100 20 111/44 (66) 96 03/08/20 11:28 101 20 100 03/08/20 11:00 101 20 108/46 (66) 97 03/08/20 11:00 101 20 108/46 (66) 97 03/08/20 11:00 20 108/46 Mechanical Ventilator 03/08/20 11:00 108/46 03/08/20 10:45 101 106/41 03/08/20 10:45 102 21 109/49 (69) 97 03/08/20 10:30 103 20 110/45 (66) 97 03/08/20 10:15 103 20 109/47 (67) 97 03/08/20 10:04 104 20 105/43 (63) 98 03/08/20 10:03 104 20 100/41 (60) 98 03/08/20 10:00 101 22 88/52 (64) 98 03/08/20 10:00 22 88/52 Mechanical Ventilator 03/08/20 10:00 88/52 03/08/20 09:35 105 21 112/48 (69) 97 03/08/20 09:32 104 20 86/47 (60) 96 03/08/20 09:30 86/47 03/08/20 09:19 107 21 93/40 (57) 95 03/08/20 09:17 107 20 89/46 (60) 94 03/08/20 09:15 106 20 82/43 (56) 95 03/08/20 09:07 109 20 90/44 (59) 95 03/08/20 09:00 22 99/48 Mechanical Ventilator 03/08/20 09:00 99/48 03/08/20 09:00 109 21 99/48 (65) 92 03/08/20 09:00 110 03/08/20 08:47 107 22 124/58 (80) 93 03/08/20 08:35 113 20 113/52 (72) 92 03/08/20 08:30 97.8 111 23 87/68 (74) 91 03/08/20 08:21 109/56 03/08/20 08:15 108 23 98/58 (71) 93 03/08/20 08:00 109 22 96/58 (71) 93 03/08/20 08:00 Mechanical Ventilator 03/08/20 08:00 22 96/58 Mechanical Ventilator 03/08/20 08:00 96/58 03/08/20 08:00 100 03/08/20 07:29 108 23 100 03/08/20 07:00 110 19 106/56 (73) 91 03/08/20 07:00 23 Mechanical Ventilator 90 03/08/20 07:00 109/56 03/08/20 06:30 110 22 03/08/20 06:16 98.3 03/08/20 06:00 112 24 114/58 (76) 93 03/08/20 06:00 24 Mechanical Ventilator 90 03/08/20 06:00 114/58 03/08/20 05:32 22 Mechanical Ventilator 80 03/08/20 05:30 110 24 101/58 (72) 89 03/08/20 05:00 109 23 114/65 (81) 91 03/08/20 05:00 22 Mechanical Ventilator 90 03/08/20 05:00 114/65 03/08/20 04:30 108 24 109/59 (76) 92 03/08/20 04:00 98.3 107 22 101/70 (80) 95 03/08/20 04:00 90 03/08/20 04:00 23 Mechanical Ventilator 90 03/08/20 04:00 101/70 03/08/20 04:00 103 03/08/20 04:00 Mechanical Ventilator 03/08/20 03:30 108 22 111/81 (91) 95 03/08/20 03:30 108 23 90 03/08/20 03:00 108 22 102/79 (87) 95 03/08/20 03:00 23 Mechanical Ventilator 90 03/08/20 03:00 102/79 03/08/20 02:30 108 23 103/61 (75) 95 03/08/20 02:28 114/58 03/08/20 02:00 23 Mechanical Ventilator 90 03/08/20 02:00 115/57 03/08/20 02:00 111 23 115/57 (76) 95 03/08/20 01:30 110 22 111/62 (78) 96 03/08/20 01:00 110 23 106/90 (95) 95 03/08/20 01:00 22 Mechanical Ventilator 90 03/08/20 01:00 106/90 03/08/20 00:30 107 21 128/61 (83) 94 03/08/20 00:00 107 03/08/20 00:00 Mechanical Ventilator 03/08/20 00:00 23 Mechanical Ventilator 90 03/08/20 00:00 92/64 03/08/20 00:00 90 03/08/20 00:00 103 21 88/64 (72) 95 03/07/20 23:30 102 20 90 03/07/20 23:00 23 Mechanical Ventilator 90 03/07/20 23:00 123/66 03/07/20 23:00 108 20 123/66 (85) 95 03/07/20 22:30 111 19 117/70 (86) 94 03/07/20 22:00 108 23 107/70 (82) 95 03/07/20 22:00 22 Mechanical Ventilator 90 03/07/20 22:00 107/70 03/07/20 21:30 109 22 118/67 (84) 97 03/07/20 21:00 90 03/07/20 21:00 103 03/07/20 21:00 24 Mechanical Ventilator 90 03/07/20 21:00 115/63 03/07/20 21:00 106 27 115/63 (80) 94 03/07/20 20:30 107 23 120/58 (78) 95 03/07/20 20:00 22 Mechanical Ventilator 90 03/07/20 20:00 117/70 03/07/20 20:00 98.3 103 22 122/53 (76) 95 03/07/20 20:00 Mechanical Ventilator 03/07/20 19:30 104 25 104/55 (71) 96 03/07/20 19:30 107 25 90 03/07/20 19:25 117/63 Height (Feet): 5 Height (Inches): 5.00 Weight (Pounds): 146 General Appearance: no acute distress HEENT: normocephalic, atraumatic, anicteric, no JVD Respiratory/Chest: crackles/rales, rhonchi - bilaterally Cardiovascular: normal rate, regular rhythm, no gallop/murmur, no JVD, other - + pressors Abdomen: normal bowel sounds, soft, non tender, no organomegaly, non distended Genitourinary: other - + rush Extremities: no cyanosis Skin: no rash Neurologic/Psychiatric: other - lethargic, weak Lymphatic: no neck adenopathy Musculoskeletal: no effusion Objective Chest x-ray - 02/23/30 - Procedure: XRAY Chest 1v Indication: Respiratory failure shortness of breath Technique: XRAY Chest 1v Comparison: 02/22/2020 Findings: Heart borders are obscured. Interstitial and extensive predominantly perihilar airspace opacities are noted. There is slight decrease in opacification in the right midlung but there is worsening of disease in the left lung. Is been development of a small layering left pleural effusion. Endotracheal tube tip approximately 1.2 cm above the holly. Enteric tube tip in the distal stomach. Osseous structures are stable. There are atherosclerotic calcifications. IMPRESSION: Overall worsening of aeration with increasing airspace disease in the left lung and development of a small layering left pleural effusion. Persistent patchy perihilar opacities in the right lung. Endotracheal and enteric tubes remain in place. Tip of the ET tube approximately 1.2 cm above the holly. Consider slight retraction (1-2 cms). Chest x-ray - 02/26/20 - Procedure: XRAY Chest 1v Indication: Reason For Exam: ABN CHST Technique: One view of the chest Comparison: 02/24/2020 Findings: Endotracheal tube demonstrates slightly improved position, now roughly 3 cm above the holly. There is increased atelectasis at the right lung base. Consolidation at the right lung base appears unchanged, but there does appear to be decreased involvement of the upper lobe. There is still extensive consolidation at the left lung base, but aeration appears equivocally slightly improved, and there is less upper lobe involvement. Orogastric tube again demonstrated. Impression: Overall slightly improved bilateral infiltrates, over 2 days Improved endotracheal tube position Chest x-ray - 03/02/20 - Procedure: XRAY Chest 1v Indication: Shortness of breath Technique: One view of the chest Comparison: 03/01/2020 Findings: Left chest tube again demonstrated. No definite pneumothorax although overlying emphysema makes evaluation difficult. Previously demonstrated small right apical pneumothorax is not clearly evident on this exam. Stable satisfactory positions of endotracheal tube, orogastric tube, right jugular central venous catheter. Extensive bilateral subcutaneous emphysema is unchanged. Extensive bilateral right greater than left infiltrates are unchanged. Impression: Previously demonstrated small bilateral apical pneumothoraces are no longer evident. Otherwise essentially unchanged since previous day's exam Chest x-ray - 03/03/20 - Procedure: XRAY Chest 1v Indication: Dyspnea Technique: One view of the chest Comparison: 03/02/2020 Findings: Endotracheal tube, orogastric tube, left chest tube, right jugular central venous catheter remain in stable satisfactory positions. Small left apical pneumothorax was not visible on the previous day but appears similar to the 2019 exam. No definite left pneumothorax demonstrated. Extensive subcutaneous emphysema is unchanged. Extensive bilateral infiltrates are unchanged. Impression: Small right apical pneumothorax, not visible on previous day's exam but unchanged from 03/01/2020 Otherwise stable findings as described Chest x-ray - 03/06/20 - IMPRESSION: 1. Endotracheal tube terminates in the region of the mid thoracic trachea. Enteric tube courses past the diaphragm and out of the field of view. Right internal jugular central venous catheter terminates in the region of the SVC. Left-sided chest tube. 2. No definite pneumothorax identified, but evaluation is limited by artifact from prominent overlying subcutaneous emphysema. 3. Patchy opacities throughout the lungs, worst in the left perihilar region and lung bases. Chest x-ray - 03/08/20- Procedure: XRAY Chest 1v Indication: Post endotracheal tube readjustment Technique: One view of the chest Comparison: 5 hours earlier Findings: Interim retraction of endotracheal tube, tip now projecting approximately 1 cm above the holly. Extensive bilateral dense consolidation and bilateral pleural effusions again demonstrated. Other tubes and lines are stable Impression: Improved position of endotracheal tube Microbiology Date/Time Source Procedure Growth Status 03/06/20 15:15 Blood Blood Culture - Preliminary NO GROWTH AFTER 24 HOURS Resulted 03/06/20 15:15 Blood Blood Culture - Preliminary NO GROWTH AFTER 24 HOURS Resulted 03/07/20 04:25 Sputum Gram Stain - Final Resulted 03/07/20 04:25 Sputum Culture - Preliminary Gram Negative Bacillus 1 Resulted 03/07/20 04:25 Urine,Clean Catch Urine Culture - Preliminary NO GROWTH AFTER 24 HOURS Resulted 03/06/20 12:05 Urine,Clean Catch Urine Culture - Preliminary NO GROWTH AFTER 24 HOURS Resulted Laboratory Tests Test 03/08/20 05:30 03/08/20 05:45 White Blood Count 15.1 K/UL (4.8-10.8) H Red Blood Count 3.19 M/UL (4.70-6.10) L Hemoglobin 10.1 G/DL (14.2-18.0) L Hematocrit 29.9 % (42.0-52.0) L Mean Corpuscular Volume 94 FL (80-99) Mean Corpuscular Hemoglobin 31.8 PG (27.0-31.0) H Mean Corpuscular Hemoglobin Concent 33.9 G/DL (32.0-36.0) Red Cell Distribution Width 15.4 % (11.6-14.8) H Platelet Count 32 K/UL (150-450) #L Mean Platelet Volume 9.4 FL (6.5-10.1) Neutrophils (%) (Auto) % (45.0-75.0) Lymphocytes (%) (Auto) % (20.0-45.0) Monocytes (%) (Auto) % (1.0-10.0) Eosinophils (%) (Auto) % (0.0-3.0) Basophils (%) (Auto) % (0.0-2.0) Differential Total Cells Counted 100 Neutrophils % (Manual) 47 % (45-75) Lymphocytes % (Manual) 3 % (20-45) L Monocytes % (Manual) 2 % (1-10) Eosinophils % (Manual) 0 % (0-3) Basophils % (Manual) 0 % (0-2) Myelocytes % 1 % (0-0) H Band Neutrophils 47 % (0-8) H Nucleated Red Blood Cells 1 /100 WBC Platelet Estimate Decreased L Platelet Morphology Normal Anisocytosis 1+ Sodium Level 130 MMOL/L (136-145) L Potassium Level 4.5 MMOL/L (3.5-5.1) Chloride Level 94 MMOL/L (98-107) L Carbon Dioxide Level 25 MMOL/L (21-32) Anion Gap 11 mmol/L (5-15) Blood Urea Nitrogen 37 mg/dL (7-18) H Creatinine 1.5 MG/DL (0.55-1.30) H Estimat Glomerular Filtration Rate 45.5 mL/min (>60) Glucose Level 116 MG/DL (74-106) H Calcium Level 7.3 MG/DL (8.5-10.1) L Total Bilirubin 7.3 MG/DL (0.2-1.0) H Direct Bilirubin 5.3 MG/DL (0.0-0.3) H Aspartate Amino Transf (AST/SGOT) 43 U/L (15-37) H Alanine Aminotransferase (ALT/SGPT) 29 U/L (12-78) Alkaline Phosphatase 173 U/L (46-116) H Total Protein 5.4 G/DL (6.4-8.2) L Albumin 1.9 G/DL (3.4-5.0) L Globulin 3.5 g/dL Albumin/Globulin Ratio 0.5 (1.0-2.7) L Current Medications Medications (Trade) Dose Ordered Sig/Cirilo Route PRN Reason Start Time Stop Time Status Last Admin Dose Admin Acetaminophen (Tylenol) 650 mg Q4H PRN ORAL Fever 02/22/20 14:15 03/23/20 14:14 02/28/20 17:52 Acetaminophen (Tylenol) 650 mg Q4H PRN ORAL Mild Pain (Pain Scale 1-3) 02/22/20 14:15 03/23/20 14:14 03/03/20 17:31 Acetaminophen (Tylenol) 650 mg Q4H PRN RECTAL Mild Pain (Pain Scale 1-3) 02/22/20 14:15 03/23/20 14:14 02/22/20 21:28 Acetaminophen (Tylenol) 650 mg Q4H PRN RECTAL FEVER 02/22/20 14:15 03/23/20 14:14 03/06/20 04:20 Cefepime HCl 2 gm/ Dextrose 100 ml @ 200 mls/hr Q12HR IVPB 03/06/20 21:00 03/13/20 20:59 03/08/20 08:21 Chlorhexidine Gluconate (Maira-Hex 2%) 1 applic DAILY@2000 TOPIC 02/23/20 20:00 05/23/20 19:59 03/07/20 20:12 Dextrose (Dextrose 50%) 25 ml Q30M PRN IV Hypoglycemia 02/23/20 09:00 05/23/20 08:59 Dextrose (Dextrose 50%) 50 ml Q30M PRN IV Hypoglycemia 02/23/20 09:00 05/23/20 08:59 Diphenhydramine HCl (Benadryl) 25 mg Q6H PRN ORAL Itching/Pruritis 02/22/20 14:15 03/23/20 14:14 02/26/20 01:34 Fentanyl Citrate 2500 mcg/Sodium Chloride 250 ml @ 0 mls/hr Q24H IV 03/01/20 19:45 03/08/20 19:44 03/08/20 05:32 Fluconazole/ Sodium Chloride 200 ml @ 200 mls/hr Q24H IV 03/06/20 20:00 03/13/20 19:59 03/07/20 20:12 Insulin Aspart (NovoLOG) Q6HR SUBQ 02/28/20 18:00 05/28/20 17:59 03/08/20 11:47 Metoclopramide HCl (Reglan) 5 mg Q6HR IVP 03/01/20 12:00 03/31/20 11:59 03/08/20 17:03 Metronidazole (Flagyl) 500 mg EVERY 8 HOURS ORAL 03/06/20 22:00 03/13/20 21:59 03/08/20 13:14 Midazolam HCl 100 ml @ 0 mls/hr Q24H IV 02/26/20 15:06 05/26/20 15:05 02/26/20 15:48 Norepinephrine Bitartrate 8 mg/ Dextrose 500 ml @ 0 mls/hr Q24H IV 02/23/20 19:01 03/24/20 19:00 03/08/20 18:15 Pantoprazole (Protonix) 40 mg DAILY IVP 02/23/20 09:30 03/24/20 09:29 03/08/20 08:20 Phenylephrine HCl 50 mg/Dextrose 250 ml @ 6 mls/hr Q24H IV 02/29/20 10:45 03/30/20 10:44 03/04/20 04:43 Vancomycin HCl (Vanco rx to dose) 1 ea DAILY PRN MISC Per rx protocol 03/06/20 18:15 04/05/20 18:14 Anselmo Estrada MD March 08, 2020 19:30
[2020-03-08] MEDS: Dyna-Hex 2% Top Sol 2oz TOPIC SCH (20:53)
[2020-03-09] VITALS (73 sets, daily range): BP systolic 55–133; BP diastolic 21–61
[2020-03-09] MEDS: Norepinephrine Bitartrate 8 MG in D5W 500ml 492 ML IV SCH ×3 (00:51→10:44)
[2020-03-09 05:19] LABS: HEMATOCRIT 27.5 % (42.0-52.0); HEMOGLOBIN 9.2 G/DL (14.2-18.0); MEAN CORPUSCULAR VOLUME 93 FL (80-99); PLATELET COUNT 22 K/UL (150-450); RED BLOOD COUNT 2.94 M/UL (4.70-6.10); RED CELL DISTRIBUTION WIDTH 16.1 % (11.6-14.8)
[2020-03-09 06:01] LABS: ALANINE AMINOTRANSFERASE 23 U/L (12-78); ALBUMIN 1.5 G/DL (3.4-5.0); ALBUMIN/GLOBULIN RATIO 0.5 (1.0-2.7); ALKALINE PHOSPHATASE 355 U/L (46-116); ANION GAP 6 mmol/L (5-15); ASPARTATE AMINO TRANSFERASE 53 U/L (15-37); BLOOD UREA NITROGEN 45 mg/dL (7-18); CALCIUM 7.1 MG/DL (8.5-10.1); CARBON DIOXIDE 24 MMOL/L (21-32); CHLORIDE 88 MMOL/L (98-107); CREATININE 1.5 MG/DL (0.55-1.30); POTASSIUM 4.3 MMOL/L (3.5-5.1); SODIUM 121 MMOL/L (136-145)
[2020-03-09 06:05] LABS: BILIRUBIN,DIRECT 6.6 MG/DL (0.0-0.3)
[2020-03-09] MEDS: Metoclopramide 10mg/2ml Inj IVP SCH ×4 (06:14→21:06)
[2020-03-09] MEDS: metroNIDAZOLE 500mg tab ORAL SCH ×3 (06:15→21:06)
[2020-03-09] MEDS: NovoLOG Insulin Flexpen SUBQ SCH ×3 (06:17→18:06)
[2020-03-09] MEDS: Phenylephrine 50 MG in D5W 245 ML IV SCH ×4 (06:19→23:34)
[2020-03-09] MEDS: fentaNYL Citrate 2,500 MCG in NS 200 ML IV SCH (07:06)
[2020-03-09] MEDS: Pantoprazole Inj IVP SCH (08:23)
--- NOTE | 2020-03-09 09:58 | General Progress Note ---
Assessment/Plan Problem List: (1) Elevated LFTs ICD Codes: R79.89 - Other specified abnormal findings of blood chemistry SNOMED: 525874089, 785312157 (2) Thrombocytopenia ICD Codes: D69.6 - Thrombocytopenia, unspecified SNOMED: 052432675 (3) Suspected COVID-19 virus infection ICD Codes: Z20.828 - Contact with and (suspected) exposure to other viral communicable diseases SNOMED: 878109089 (4) Respiratory failure with hypoxia ICD Codes: J96.91 - Respiratory failure, unspecified with hypoxia SNOMED: 72952035265546865 Qualifiers: Qualified Codes: J96.01 - Acute respiratory failure with hypoxia (5) Hypotension ICD Codes: I95.9 - Hypotension, unspecified SNOMED: 52061069 Qualifiers: Qualified Codes: I95.9 - Hypotension, unspecified (6) Alzheimer's dementia ICD Codes: G30.9 - Alzheimer's disease, unspecified; F02.80 - Dementia in other diseases classified elsewhere without behavioral disturbance SNOMED: 65907829 (7) Cerebrovascular accident (CVA) ICD Codes: I63.9 - Cerebral infarction, unspecified SNOMED: 628000005 (8) History of hypertension ICD Codes: Z86.79 - Personal history of other diseases of the circulatory system SNOMED: 325205795 (9) Diabetes mellitus ICD Codes: E11.9 - Type 2 diabetes mellitus without complications SNOMED: 25644877 Status: unchanged Assessment/Plan: reglan monitor for residuals fu labs abx per ID elevated TB most likely due to sepsis current TF at 50 ordered labs for am abd us ordered will fu poor prognosis Subjective ROS Limited/Unobtainable: No Allergies: Coded Allergies: No Known Allergies (Unverified , 01/19/19) Objective Last 24 Hour Vital Signs Date Time Temp Pulse Resp B/P (MAP) Pulse Ox O2 Delivery O2 Flow Rate FiO2 03/09/20 09:00 115 26 106/39 (61) 94 03/09/20 08:30 113 26 98/39 (58) 94 03/09/20 08:00 Mechanical Ventilator 03/09/20 08:00 99.0 114 26 109/41 (63) 95 03/09/20 08:00 100 03/09/20 07:30 116 26 109/41 (63) 95 03/09/20 07:15 115 26 100 03/09/20 07:06 26 104/43 Mechanical Ventilator 100 03/09/20 07:00 115 24 104/43 (63) 96 03/09/20 06:45 116 24 106/41 (62) 96 03/09/20 06:30 117 22 112/45 (67) 94 03/09/20 06:30 114 22 03/09/20 06:19 116 66/26 03/09/20 06:18 66/26 03/09/20 06:15 114 22 118/45 (69) 86 03/09/20 06:00 88 22 60/26 (37) 03/09/20 05:45 99 26 76/31 (46) 03/09/20 05:30 104 27 90/30 (50) 86 03/09/20 05:15 115 23 109/40 (63) 95 03/09/20 05:00 117 22 133/53 (79) 95 03/09/20 05:00 22 133/53 Mechanical Ventilator 100 03/09/20 05:00 133/53 03/09/20 04:45 116 24 130/48 (75) 94 03/09/20 04:30 117 22 122/50 (74) 94 03/09/20 04:15 117 20 122/50 (74) 95 03/09/20 04:00 100 03/09/20 04:00 118 03/09/20 04:00 20 122/50 Mechanical Ventilator 100 03/09/20 04:00 122/50 03/09/20 04:00 Mechanical Ventilator 03/09/20 04:00 98.5 117 18 123/42 (69) 94 03/09/20 03:52 118 24 100 03/09/20 03:45 118 20 117/48 (71) 94 03/09/20 03:30 118 20 123/48 (73) 93 03/09/20 03:15 116 20 122/44 (70) 92 03/09/20 03:00 117 22 112/47 (68) 88 03/09/20 03:00 20 122/44 Mechanical Ventilator 100 03/09/20 03:00 122/44 03/09/20 02:45 122 22 124/61 (82) 88 03/09/20 02:30 119 25 133/51 (78) 89 03/09/20 02:15 116 24 90/35 (53) 88 03/09/20 02:00 24 90/35 Mechanical Ventilator 100 03/09/20 02:00 90/35 03/09/20 02:00 116 25 102/42 (62) 90 03/09/20 01:45 117 23 96/42 (60) 91 03/09/20 01:30 118 22 93/42 (59) 90 03/09/20 01:15 118 23 102/40 (60) 89 03/09/20 01:01 25 102/40 Mechanical Ventilator 40 03/09/20 01:00 120 26 105/41 (62) 87 03/09/20 01:00 95/40 03/09/20 00:53 120 21 106/37 (60) 85 03/09/20 00:51 66/34 03/09/20 00:45 102 24 66/34 (45) 83 03/09/20 00:30 111 29 76/29 (45) 91 03/09/20 00:15 118 27 100/38 (58) 90 03/09/20 00:07 Mechanical Ventilator 03/09/20 00:06 100 03/09/20 00:03 95/40 03/09/20 00:00 98.7 119 26 95/40 (58) 89 03/09/20 00:00 119 03/08/20 23:45 120 26 107/42 (63) 89 03/08/20 23:30 119 20 108/40 (62) 82 03/08/20 23:26 102 22 89/40 (56) 84 03/08/20 23:20 105 29 100 03/08/20 23:17 105 24 64/25 (38) 03/08/20 23:15 107 27 64/27 (39) 79 03/08/20 23:00 111 27 77/33 (48) 82 03/08/20 23:00 27 64/27 Mechanical Ventilator 100 03/08/20 23:00 64/27 03/08/20 22:45 116 28 102/35 (57) 88 03/08/20 22:30 116 24 125/46 (72) 89 03/08/20 22:15 116 25 120/51 (74) 90 03/08/20 22:15 24 91/39 Mechanical Ventilator 100 03/08/20 22:00 117 23 121/46 (71) 92 03/08/20 22:00 24 121/46 Mechanical Ventilator 100 03/08/20 22:00 121/46 03/08/20 21:45 117 22 117/50 (72) 95 03/08/20 21:30 117 24 113/42 (65) 95 03/08/20 21:15 115 20 104/45 (64) 95 03/08/20 21:00 112 19 91/39 (56) 94 03/08/20 21:00 20 104/45 Mechanical Ventilator 40 03/08/20 21:00 104/45 03/08/20 20:58 112 65/24 03/08/20 20:45 94 21 65/24 (38) 84 03/08/20 20:30 96 21 49/19 (29) 03/08/20 20:15 101 22 65/26 (39) 87 03/08/20 20:00 Mechanical Ventilator 03/08/20 20:00 100 03/08/20 20:00 25 80/31 Mechanical Ventilator 100 03/08/20 20:00 80/31 03/08/20 20:00 107 20 80/31 (47) 93 03/08/20 20:00 103 03/08/20 19:50 110 29 100 03/08/20 19:45 110 27 110/52 (71) 92 03/08/20 19:30 98.3 111 25 118/46 (70) 92 03/08/20 19:15 110 29 113/48 (69) 92 03/08/20 19:00 109 27 118/50 (72) 93 03/08/20 19:00 28 118/50 Mechanical Ventilator 100 03/08/20 19:00 118/50 03/08/20 18:15 118/47 03/08/20 18:00 109 26 118/47 (70) 94 03/08/20 17:30 110 23 119/44 (69) 94 03/08/20 17:00 24 122/47 Mechanical Ventilator 03/08/20 17:00 122/47 03/08/20 17:00 108 24 122/47 (72) 93 03/08/20 16:45 104 29 71/28 (42) 90 03/08/20 16:30 98.1 108 29 131/50 (77) 94 03/08/20 16:15 109 27 130/49 (76) 93 03/08/20 16:00 100 03/08/20 16:00 108 03/08/20 16:00 Mechanical Ventilator 03/08/20 16:00 29 138/50 Mechanical Ventilator 03/08/20 16:00 138/50 03/08/20 16:00 108 29 138/50 (79) 93 03/08/20 15:09 105 25 100 03/08/20 15:06 28 Mechanical Ventilator 03/08/20 15:00 126/46 03/08/20 15:00 104 23 126/46 (72) 94 03/08/20 14:45 104 21 124/47 (72) 95 03/08/20 14:30 104 22 127/54 (78) 96 03/08/20 14:15 102 23 119/45 (69) 97 03/08/20 14:00 103 21 116/51 (72) 97 03/08/20 14:00 116/51 03/08/20 14:00 102 23 116/51 (72) 97 03/08/20 13:45 100 21 111/45 (67) 97 03/08/20 13:36 100 22 108/49 (68) 97 03/08/20 13:32 98 22 93/48 (63) 97 03/08/20 13:30 99 21 109/42 (64) 97 03/08/20 13:30 99/41 03/08/20 13:15 96 20 100/45 (63) 97 03/08/20 13:00 96 20 99/41 (60) 96 03/08/20 13:00 20 99/41 Mechanical Ventilator 03/08/20 13:00 99/41 03/08/20 12:45 98 20 103/42 (62) 96 03/08/20 12:30 99 20 101/44 (63) 96 03/08/20 12:15 100 20 101/44 (63) 95 03/08/20 12:00 97.8 101 20 106/41 (62) 95 03/08/20 12:00 99 03/08/20 12:00 20 106/41 Mechanical Ventilator 03/08/20 12:00 106/41 03/08/20 12:00 100 03/08/20 12:00 Mechanical Ventilator 03/08/20 11:45 100 20 117/43 (67) 94 03/08/20 11:30 100 20 111/44 (66) 96 03/08/20 11:28 101 20 100 03/08/20 11:00 101 20 108/46 (66) 97 03/08/20 11:00 101 20 108/46 (66) 97 03/08/20 11:00 20 108/46 Mechanical Ventilator 03/08/20 11:00 108/46 03/08/20 10:45 101 106/41 03/08/20 10:45 102 21 109/49 (69) 97 03/08/20 10:30 103 20 110/45 (66) 97 03/08/20 10:15 103 20 109/47 (67) 97 03/08/20 10:04 104 20 105/43 (63) 98 03/08/20 10:03 104 20 100/41 (60) 98 03/08/20 10:00 101 22 88/52 (64) 98 03/08/20 10:00 22 88/52 Mechanical Ventilator 03/08/20 10:00 88/52 Intake and Output 03/08/20 03/09/20 18:59 06:59 Intake Total 1677.50 ml 2290.0 ml Output Total 1190 ml 600 ml Balance 487.50 ml 1690.0 ml IV Total 1287.50 ml 1870.0 ml Tube Feeding 340 ml 420 ml Other 50 ml Output Urine Total 500 ml 300 ml Chest Tube Drainage Total 690 ml 300 ml Laboratory Tests 03/09/20 04:49: White Blood Count 27.0#*H, Red Blood Count 2.94L, Hemoglobin 9.2L, Hematocrit 27.5L, Mean Corpuscular Volume 93, Mean Corpuscular Hemoglobin 31.3H, Mean Corpuscular Hemoglobin Concent 33.5, Red Cell Distribution Width 16.1H, Platelet Count 22L, Mean Platelet Volume 10.5H, Neutrophils (%) (Auto) , Lymphocytes (%) (Auto) , Monocytes (%) (Auto) , Eosinophils (%) (Auto) , Basophils (%) (Auto) , Differential Total Cells Counted 100, Neutrophils % ( Manual) 96H, Lymphocytes % (Manual) 2L, Monocytes % (Manual) 2, Eosinophils % ( Manual) 0, Basophils % (Manual) 0, Band Neutrophils 0, Nucleated Red Blood Cells 2, Platelet Estimate DecreasedL, Platelet Morphology Normal, Hypochromasia 2+, Anisocytosis 1+, Spherocytes 2+, Sodium Level 121L, Potassium Level 4.3, Chloride Level 88L, Carbon Dioxide Level 24, Anion Gap 6, Blood Urea Nitrogen 45H, Creatinine 1.5H, Estimat Glomerular Filtration Rate 45.5, Glucose Level 175H, Calcium Level 7.1L, Total Bilirubin 9.0H, Direct Bilirubin 6.6H, Aspartate Amino Transf (AST/SGOT) 53H, Alanine Aminotransferase (ALT/SGPT) 23, Alkaline Phosphatase 355H, Total Protein 4.7L, Albumin 1.5L, Globulin 3.2, Albumin/Globulin Ratio 0.5L, Random Vancomycin Level 12.6 Height (Feet): 5 Height (Inches): 5.00 Weight (Pounds): 160 General Appearance: lethargic EENT: PERRL/EOMI Neck: supple Cardiovascular: normal rate Respiratory/Chest: decreased breath sounds Abdomen: soft, hypoactive bowel sounds Extremities: non-tender Domo Howe MD March 09, 2020 09:58
[2020-03-09] MEDS ORDERED: Vancomycin 1 GM in NS 275 ML IVPB SCH (10:00)
--- NOTE | 2020-03-09 10:50 | Nephrology Progress Note ---
Assessment/Plan Plan #septic shock- r/o COVID #ELE- concerns for pre-renal azotemia vs progressive oliguric ATN #Hypoxemic respiratory failure s/p intbation- ventilator dependent # HTN now in shock #, DMT2 # dementia due Alzheimers dx # h/o CVA/TIA # h/o DVT # schizophrenia, bipolar #thrombocytopenia #hypokalemia, hypophos - repleted #hypoalbuminemia - Cr rising- with decreasing UOP - sodium down to 121 suspect intravascular depletion continue with colloid resuscitation.- albumin 25g BID - check urine chem - monitor sodium - replete lytes, phos and K prn - continue icu care - off IVF - replete lytes prn - vasopressor per pulmonary - vent management per pulm - antibiotics per ID - check free calcium in am - monitor lytes - BG control - holding antihypertensive Subjective ROS Limited/Unobtainable: Yes Subjective labs reviewed Cr uptrending sodium down to 121 suspect intravascular depletion continue with colloid resuscitation. on levo drip Fio2 80 Objective Objective Last 24 Hour Vital Signs Date Time Temp Pulse Resp B/P (MAP) Pulse Ox O2 Delivery O2 Flow Rate FiO2 03/09/20 09:00 115 26 106/39 (61) 94 03/09/20 08:30 113 26 98/39 (58) 94 03/09/20 08:00 Mechanical Ventilator 03/09/20 08:00 99.0 114 26 109/41 (63) 95 03/09/20 08:00 100 03/09/20 07:30 116 26 109/41 (63) 95 03/09/20 07:15 115 26 100 03/09/20 07:06 26 104/43 Mechanical Ventilator 100 03/09/20 07:00 115 24 104/43 (63) 96 03/09/20 06:45 116 24 106/41 (62) 96 03/09/20 06:30 117 22 112/45 (67) 94 03/09/20 06:30 114 22 03/09/20 06:19 116 66/26 03/09/20 06:18 66/26 03/09/20 06:15 114 22 118/45 (69) 86 03/09/20 06:00 88 22 60/26 (37) 03/09/20 05:45 99 26 76/31 (46) 5/13/20 05:30 104 27 90/30 (50) 86 03/09/20 05:15 115 23 109/40 (63) 95 03/09/20 05:00 117 22 133/53 (79) 95 03/09/20 05:00 22 133/53 Mechanical Ventilator 100 03/09/20 05:00 133/53 03/09/20 04:45 116 24 130/48 (75) 94 03/09/20 04:30 117 22 122/50 (74) 94 03/09/20 04:15 117 20 122/50 (74) 95 03/09/20 04:00 100 03/09/20 04:00 118 03/09/20 04:00 20 122/50 Mechanical Ventilator 100 03/09/20 04:00 122/50 03/09/20 04:00 Mechanical Ventilator 03/09/20 04:00 98.5 117 18 123/42 (69) 94 03/09/20 03:52 118 24 100 03/09/20 03:45 118 20 117/48 (71) 94 03/09/20 03:30 118 20 123/48 (73) 93 03/09/20 03:15 116 20 122/44 (70) 92 03/09/20 03:00 117 22 112/47 (68) 88 03/09/20 03:00 20 122/44 Mechanical Ventilator 100 03/09/20 03:00 122/44 03/09/20 02:45 122 22 124/61 (82) 88 03/09/20 02:30 119 25 133/51 (78) 89 03/09/20 02:15 116 24 90/35 (53) 88 03/09/20 02:00 24 90/35 Mechanical Ventilator 100 03/09/20 02:00 90/35 03/09/20 02:00 116 25 102/42 (62) 90 03/09/20 01:45 117 23 96/42 (60) 91 03/09/20 01:30 118 22 93/42 (59) 90 03/09/20 01:15 118 23 102/40 (60) 89 03/09/20 01:01 25 102/40 Mechanical Ventilator 40 03/09/20 01:00 120 26 105/41 (62) 87 03/09/20 01:00 95/40 03/09/20 00:53 120 21 106/37 (60) 85 03/09/20 00:51 66/34 03/09/20 00:45 102 24 66/34 (45) 83 03/09/20 00:30 111 29 76/29 (45) 91 03/09/20 00:15 118 27 100/38 (58) 90 03/09/20 00:07 Mechanical Ventilator 03/09/20 00:06 100 03/09/20 00:03 95/40 03/09/20 00:00 98.7 119 26 95/40 (58) 89 03/09/20 00:00 119 03/08/20 23:45 120 26 107/42 (63) 89 03/08/20 23:30 119 20 108/40 (62) 82 03/08/20 23:26 102 22 89/40 (56) 84 03/08/20 23:20 105 29 100 03/08/20 23:17 105 24 64/25 (38) 03/08/20 23:15 107 27 64/27 (39) 79 03/08/20 23:00 111 27 77/33 (48) 82 03/08/20 23:00 27 64/27 Mechanical Ventilator 100 03/08/20 23:00 64/27 03/08/20 22:45 116 28 102/35 (57) 88 03/08/20 22:30 116 24 125/46 (72) 89 03/08/20 22:15 116 25 120/51 (74) 90 03/08/20 22:15 24 91/39 Mechanical Ventilator 100 03/08/20 22:00 117 23 121/46 (71) 92 03/08/20 22:00 24 121/46 Mechanical Ventilator 100 03/08/20 22:00 121/46 03/08/20 21:45 117 22 117/50 (72) 95 03/08/20 21:30 117 24 113/42 (65) 95 03/08/20 21:15 115 20 104/45 (64) 95 03/08/20 21:00 112 19 91/39 (56) 94 03/08/20 21:00 20 104/45 Mechanical Ventilator 40 03/08/20 21:00 104/45 03/08/20 20:58 112 65/24 03/08/20 20:45 94 21 65/24 (38) 84 03/08/20 20:30 96 21 49/19 (29) 03/08/20 20:15 101 22 65/26 (39) 87 03/08/20 20:00 Mechanical Ventilator 03/08/20 20:00 100 03/08/20 20:00 25 80/31 Mechanical Ventilator 100 03/08/20 20:00 80/31 03/08/20 20:00 107 20 80/31 (47) 93 03/08/20 20:00 103 03/08/20 19:50 110 29 100 03/08/20 19:45 110 27 110/52 (71) 92 03/08/20 19:30 98.3 111 25 118/46 (70) 92 03/08/20 19:15 110 29 113/48 (69) 92 03/08/20 19:00 109 27 118/50 (72) 93 03/08/20 19:00 28 118/50 Mechanical Ventilator 100 03/08/20 19:00 118/50 03/08/20 18:15 118/47 03/08/20 18:00 109 26 118/47 (70) 94 03/08/20 17:30 110 23 119/44 (69) 94 03/08/20 17:00 24 122/47 Mechanical Ventilator 03/08/20 17:00 122/47 03/08/20 17:00 108 24 122/47 (72) 93 03/08/20 16:45 104 29 71/28 (42) 90 03/08/20 16:30 98.1 108 29 131/50 (77) 94 03/08/20 16:15 109 27 130/49 (76) 93 03/08/20 16:00 100 03/08/20 16:00 108 03/08/20 16:00 Mechanical Ventilator 03/08/20 16:00 29 138/50 Mechanical Ventilator 03/08/20 16:00 138/50 03/08/20 16:00 108 29 138/50 (79) 93 03/08/20 15:09 105 25 100 03/08/20 15:06 28 Mechanical Ventilator 03/08/20 15:00 126/46 03/08/20 15:00 104 23 126/46 (72) 94 03/08/20 14:45 104 21 124/47 (72) 95 03/08/20 14:30 104 22 127/54 (78) 96 03/08/20 14:15 102 23 119/45 (69) 97 03/08/20 14:00 103 21 116/51 (72) 97 03/08/20 14:00 116/51 03/08/20 14:00 102 23 116/51 (72) 97 03/08/20 13:45 100 21 111/45 (67) 97 03/08/20 13:36 100 22 108/49 (68) 97 03/08/20 13:32 98 22 93/48 (63) 97 03/08/20 13:30 99 21 109/42 (64) 97 03/08/20 13:30 99/41 03/08/20 13:15 96 20 100/45 (63) 97 03/08/20 13:00 96 20 99/41 (60) 96 03/08/20 13:00 20 99/41 Mechanical Ventilator 03/08/20 13:00 99/41 03/08/20 12:45 98 20 103/42 (62) 96 03/08/20 12:30 99 20 101/44 (63) 96 03/08/20 12:15 100 20 101/44 (63) 95 03/08/20 12:00 97.8 101 20 106/41 (62) 95 03/08/20 12:00 99 03/08/20 12:00 20 106/41 Mechanical Ventilator 03/08/20 12:00 106/41 03/08/20 12:00 100 03/08/20 12:00 Mechanical Ventilator 03/08/20 11:45 100 20 117/43 (67) 94 03/08/20 11:30 100 20 111/44 (66) 96 03/08/20 11:28 101 20 100 03/08/20 11:00 101 20 108/46 (66) 97 03/08/20 11:00 101 20 108/46 (66) 97 03/08/20 11:00 20 108/46 Mechanical Ventilator 03/08/20 11:00 108/46 Intake and Output 03/08/20 03/09/20 19:00 07:00 Intake Total 1712.50 ml 2145.0 ml Output Total 830 ml 600 ml Balance 882.50 ml 1545.0 ml IV Total 1312.50 ml 1755.0 ml Tube Feeding 350 ml 390 ml Other 50 ml Output Urine Total 500 ml 300 ml Chest Tube Drainage Total 330 ml 300 ml Laboratory Tests 03/09/20 04:49: White Blood Count 27.0#*H, Red Blood Count 2.94L, Hemoglobin 9.2L, Hematocrit 27.5L, Mean Corpuscular Volume 93, Mean Corpuscular Hemoglobin 31.3H, Mean Corpuscular Hemoglobin Concent 33.5, Red Cell Distribution Width 16.1H, Platelet Count 22L, Mean Platelet Volume 10.5H, Neutrophils (%) (Auto) , Lymphocytes (%) (Auto) , Monocytes (%) (Auto) , Eosinophils (%) (Auto) , Basophils (%) (Auto) , Differential Total Cells Counted 100, Neutrophils % ( Manual) 96H, Lymphocytes % (Manual) 2L, Monocytes % (Manual) 2, Eosinophils % ( Manual) 0, Basophils % (Manual) 0, Band Neutrophils 0, Nucleated Red Blood Cells 2, Platelet Estimate DecreasedL, Platelet Morphology Normal, Hypochromasia 2+, Anisocytosis 1+, Spherocytes 2+, Sodium Level 121L, Potassium Level 4.3, Chloride Level 88L, Carbon Dioxide Level 24, Anion Gap 6, Blood Urea Nitrogen 45H, Creatinine 1.5H, Estimat Glomerular Filtration Rate 45.5, Glucose Level 175H, Calcium Level 7.1L, Total Bilirubin 9.0H, Direct Bilirubin 6.6H, Aspartate Amino Transf (AST/SGOT) 53H, Alanine Aminotransferase (ALT/SGPT) 23, Alkaline Phosphatase 355H, Total Protein 4.7L, Albumin 1.5L, Globulin 3.2, Albumin/Globulin Ratio 0.5L, Random Vancomycin Level 12.6 Height (Feet): 5 Height (Inches): 5.00 Weight (Pounds): 160 Objective General Appearance: other - intubated Lines, tubes and drains: peripheral HEENT: normocephalic, atraumatic, other - dry mucous membranes Neck: non-tender, normal alignment Respiratory/Chest: rhonchi - bilaterally Cardiovascular/Chest: normal peripheral pulses, normal rate Abdomen: soft, hypoactive bowel sounds Extremities: normal range of motion, no calf tenderness, non-pitting, no edema Skin Exam: normal pigmentation, warm/dry Dwayne Salas M.D. March 09, 2020 10:50
--- NOTE | 2020-03-09 11:03 | Pulmonology Progress Note ---
Subjective ROS Limited/Unobtainable: Yes Interval Events: Remains intubtaed; was intubated on 02/22/20 Constitutional: Reports: other - on vent and pressors ; Denies: fever HEENT: Repors: no symptoms Respiratory: Reports: no symptoms Cardiovascular: Reports: no symptoms Gastrointestinal/Abdominal: Denies: nausea, vomiting, diarrhea Genitourinary: Reports: no symptoms Psychiatric: Reports: other - NA Skin: Denies: rash Endocrine: Reports: no symptoms Musculoskeletal: Reports: other - NA Allergies: Coded Allergies: No Known Allergies (Unverified , 01/19/19) All Systems: reviewed and negative except above Subjective seen and evaluated Discussed with RN Left chest tube placed by surgery Objective Last 24 Hour Vital Signs Date Time Temp Pulse Resp B/P (MAP) Pulse Ox O2 Delivery O2 Flow Rate FiO2 03/09/20 10:44 107/43 03/09/20 09:00 115 26 106/39 (61) 94 03/09/20 08:30 113 26 98/39 (58) 94 03/09/20 08:00 Mechanical Ventilator 03/09/20 08:00 99.0 114 26 109/41 (63) 95 03/09/20 08:00 100 03/09/20 07:30 116 26 109/41 (63) 95 03/09/20 07:15 115 26 100 03/09/20 07:06 26 104/43 Mechanical Ventilator 100 03/09/20 07:00 115 24 104/43 (63) 96 03/09/20 06:45 116 24 106/41 (62) 96 03/09/20 06:30 117 22 112/45 (67) 94 03/09/20 06:30 114 22 03/09/20 06:19 116 66/26 03/09/20 06:18 66/26 03/09/20 06:15 114 22 118/45 (69) 86 03/09/20 06:00 88 22 60/26 (37) 03/09/20 05:45 99 26 76/31 (46) 03/09/20 05:30 104 27 90/30 (50) 86 03/09/20 05:15 115 23 109/40 (63) 95 03/09/20 05:00 117 22 133/53 (79) 95 03/09/20 05:00 22 133/53 Mechanical Ventilator 100 03/09/20 05:00 133/53 03/09/20 04:45 116 24 130/48 (75) 94 03/09/20 04:30 117 22 122/50 (74) 94 03/09/20 04:15 117 20 122/50 (74) 95 03/09/20 04:00 100 03/09/20 04:00 118 03/09/20 04:00 20 122/50 Mechanical Ventilator 100 03/09/20 04:00 122/50 03/09/20 04:00 Mechanical Ventilator 03/09/20 04:00 98.5 117 18 123/42 (69) 94 03/09/20 03:52 118 24 100 03/09/20 03:45 118 20 117/48 (71) 94 03/09/20 03:30 118 20 123/48 (73) 93 03/09/20 03:15 116 20 122/44 (70) 92 03/09/20 03:00 117 22 112/47 (68) 88 03/09/20 03:00 20 122/44 Mechanical Ventilator 100 03/09/20 03:00 122/44 03/09/20 02:45 122 22 124/61 (82) 88 03/09/20 02:30 119 25 133/51 (78) 89 03/09/20 02:15 116 24 90/35 (53) 88 03/09/20 02:00 24 90/35 Mechanical Ventilator 100 03/09/20 02:00 90/35 03/09/20 02:00 116 25 102/42 (62) 90 03/09/20 01:45 117 23 96/42 (60) 91 03/09/20 01:30 118 22 93/42 (59) 90 03/09/20 01:15 118 23 102/40 (60) 89 03/09/20 01:01 25 102/40 Mechanical Ventilator 40 03/09/20 01:00 120 26 105/41 (62) 87 03/09/20 01:00 95/40 03/09/20 00:53 120 21 106/37 (60) 85 03/09/20 00:51 66/34 03/09/20 00:45 102 24 66/34 (45) 83 03/09/20 00:30 111 29 76/29 (45) 91 5/13/20 00:15 118 27 100/38 (58) 90 03/09/20 00:07 Mechanical Ventilator 03/09/20 00:06 100 03/09/20 00:03 95/40 03/09/20 00:00 98.7 119 26 95/40 (58) 89 03/09/20 00:00 119 03/08/20 23:45 120 26 107/42 (63) 89 03/08/20 23:30 119 20 108/40 (62) 82 03/08/20 23:26 102 22 89/40 (56) 84 03/08/20 23:20 105 29 100 03/08/20 23:17 105 24 64/25 (38) 03/08/20 23:15 107 27 64/27 (39) 79 03/08/20 23:00 111 27 77/33 (48) 82 03/08/20 23:00 27 64/27 Mechanical Ventilator 100 03/08/20 23:00 64/27 03/08/20 22:45 116 28 102/35 (57) 88 03/08/20 22:30 116 24 125/46 (72) 89 03/08/20 22:15 116 25 120/51 (74) 90 03/08/20 22:15 24 91/39 Mechanical Ventilator 100 03/08/20 22:00 117 23 121/46 (71) 92 03/08/20 22:00 24 121/46 Mechanical Ventilator 100 03/08/20 22:00 121/46 03/08/20 21:45 117 22 117/50 (72) 95 03/08/20 21:30 117 24 113/42 (65) 95 03/08/20 21:15 115 20 104/45 (64) 95 03/08/20 21:00 112 19 91/39 (56) 94 03/08/20 21:00 20 104/45 Mechanical Ventilator 40 03/08/20 21:00 104/45 03/08/20 20:58 112 65/24 03/08/20 20:45 94 21 65/24 (38) 84 03/08/20 20:30 96 21 49/19 (29) 03/08/20 20:15 101 22 65/26 (39) 87 03/08/20 20:00 Mechanical Ventilator 03/08/20 20:00 100 03/08/20 20:00 25 80/31 Mechanical Ventilator 100 5/12/20 20:00 80/31 03/08/20 20:00 107 20 80/31 (47) 93 03/08/20 20:00 103 03/08/20 19:50 110 29 100 03/08/20 19:45 110 27 110/52 (71) 92 03/08/20 19:30 98.3 111 25 118/46 (70) 92 03/08/20 19:15 110 29 113/48 (69) 92 03/08/20 19:00 109 27 118/50 (72) 93 03/08/20 19:00 28 118/50 Mechanical Ventilator 100 03/08/20 19:00 118/50 03/08/20 18:15 118/47 03/08/20 18:00 109 26 118/47 (70) 94 03/08/20 17:30 110 23 119/44 (69) 94 03/08/20 17:00 24 122/47 Mechanical Ventilator 03/08/20 17:00 122/47 03/08/20 17:00 108 24 122/47 (72) 93 03/08/20 16:45 104 29 71/28 (42) 90 03/08/20 16:30 98.1 108 29 131/50 (77) 94 03/08/20 16:15 109 27 130/49 (76) 93 03/08/20 16:00 100 03/08/20 16:00 108 03/08/20 16:00 Mechanical Ventilator 03/08/20 16:00 29 138/50 Mechanical Ventilator 03/08/20 16:00 138/50 03/08/20 16:00 108 29 138/50 (79) 93 03/08/20 15:09 105 25 100 03/08/20 15:06 28 Mechanical Ventilator 03/08/20 15:00 126/46 03/08/20 15:00 104 23 126/46 (72) 94 03/08/20 14:45 104 21 124/47 (72) 95 03/08/20 14:30 104 22 127/54 (78) 96 03/08/20 14:15 102 23 119/45 (69) 97 03/08/20 14:00 103 21 116/51 (72) 97 03/08/20 14:00 116/51 03/08/20 14:00 102 23 116/51 (72) 97 03/08/20 13:45 100 21 111/45 (67) 97 03/08/20 13:36 100 22 108/49 (68) 97 03/08/20 13:32 98 22 93/48 (63) 97 03/08/20 13:30 99 21 109/42 (64) 97 03/08/20 13:30 99/41 03/08/20 13:15 96 20 100/45 (63) 97 03/08/20 13:00 96 20 99/41 (60) 96 03/08/20 13:00 20 99/41 Mechanical Ventilator 03/08/20 13:00 99/41 03/08/20 12:45 98 20 103/42 (62) 96 03/08/20 12:30 99 20 101/44 (63) 96 03/08/20 12:15 100 20 101/44 (63) 95 03/08/20 12:00 97.8 101 20 106/41 (62) 95 03/08/20 12:00 99 03/08/20 12:00 20 106/41 Mechanical Ventilator 03/08/20 12:00 106/41 03/08/20 12:00 100 03/08/20 12:00 Mechanical Ventilator 03/08/20 11:45 100 20 117/43 (67) 94 03/08/20 11:30 100 20 111/44 (66) 96 03/08/20 11:28 101 20 100 Intake and Output 03/08/20 03/09/20 19:00 07:00 Intake Total 1712.50 ml 2145.0 ml Output Total 830 ml 600 ml Balance 882.50 ml 1545.0 ml IV Total 1312.50 ml 1755.0 ml Tube Feeding 350 ml 390 ml Other 50 ml Output Urine Total 500 ml 300 ml Chest Tube Drainage Total 330 ml 300 ml General Appearance: no acute distress HEENT: normocephalic, atraumatic, anicteric, no JVD Respiratory/Chest: chest wall non-tender, decreased breath sounds, other - hAS SUB CUT EMPHYSEMA LEWFT SIDE Cardiovascular: normal peripheral pulses Abdomen: normal bowel sounds, soft, non tender, no organomegaly, non distended Genitourinary: other - + rush Extremities: no cyanosis Skin: no rash Neurologic/Psychiatric: other - lethargic, weak Lymphatic: no neck adenopathy Musculoskeletal: no effusion Microbiology Date/Time Source Procedure Growth Status 03/06/20 15:15 Blood Blood Culture - Preliminary NO GROWTH AFTER 48 HOURS Resulted 03/06/20 15:15 Blood Blood Culture - Preliminary NO GROWTH AFTER 48 HOURS Resulted 03/07/20 04:25 Sputum Gram Stain - Final Resulted 03/07/20 04:25 Sputum Culture - Preliminary Gram Negative Bacillus 1 Gram Negative Bacillus 2 Resulted 03/07/20 04:25 Urine,Clean Catch Urine Culture - Final NO GROWTH AFTER 48 HOURS Complete 03/06/20 12:05 Urine,Clean Catch Urine Culture - Final NO GROWTH AFTER 48 HOURS Complete Laboratory Tests 03/09/20 04:49: White Blood Count 27.0#*H, Red Blood Count 2.94L, Hemoglobin 9.2L, Hematocrit 27.5L, Mean Corpuscular Volume 93, Mean Corpuscular Hemoglobin 31.3H, Mean Corpuscular Hemoglobin Concent 33.5, Red Cell Distribution Width 16.1H, Platelet Count 22L, Mean Platelet Volume 10.5H, Neutrophils (%) (Auto) , Lymphocytes (%) (Auto) , Monocytes (%) (Auto) , Eosinophils (%) (Auto) , Basophils (%) (Auto) , Differential Total Cells Counted 100, Neutrophils % ( Manual) 96H, Lymphocytes % (Manual) 2L, Monocytes % (Manual) 2, Eosinophils % ( Manual) 0, Basophils % (Manual) 0, Band Neutrophils 0, Nucleated Red Blood Cells 2, Platelet Estimate DecreasedL, Platelet Morphology Normal, Hypochromasia 2+, Anisocytosis 1+, Spherocytes 2+, Sodium Level 121L, Potassium Level 4.3, Chloride Level 88L, Carbon Dioxide Level 24, Anion Gap 6, Blood Urea Nitrogen 45H, Creatinine 1.5H, Estimat Glomerular Filtration Rate 45.5, Glucose Level 175H, Calcium Level 7.1L, Total Bilirubin 9.0H, Direct Bilirubin 6.6H, Aspartate Amino Transf (AST/SGOT) 53H, Alanine Aminotransferase (ALT/SGPT) 23, Alkaline Phosphatase 355H, Total Protein 4.7L, Albumin 1.5L, Globulin 3.2, Albumin/Globulin Ratio 0.5L, Random Vancomycin Level 12.6 Current Medications Medications (Trade) Dose Ordered Sig/Cirilo Route PRN Reason Start Time Stop Time Status Last Admin Dose Admin Acetaminophen (Tylenol) 650 mg Q4H PRN ORAL Fever 02/22/20 14:15 03/23/20 14:14 02/28/20 17:52 Acetaminophen (Tylenol) 650 mg Q4H PRN ORAL Mild Pain (Pain Scale 1-3) 02/22/20 14:15 03/23/20 14:14 03/03/20 17:31 Acetaminophen (Tylenol) 650 mg Q4H PRN RECTAL Mild Pain (Pain Scale 1-3) 02/22/20 14:15 03/23/20 14:14 02/22/20 21:28 Acetaminophen (Tylenol) 650 mg Q4H PRN RECTAL FEVER 02/22/20 14:15 03/23/20 14:14 03/06/20 04:20 Albumin Human 100 ml @ 100 mls/hr BID ONCE IV 03/09/20 18:00 03/09/20 18:59 Cefepime HCl 2 gm/ Dextrose 100 ml @ 200 mls/hr Q12HR IVPB 03/06/20 21:00 03/13/20 20:59 03/09/20 08:22 Chlorhexidine Gluconate (Maira-Hex 2%) 1 applic DAILY@2000 TOPIC 02/23/20 20:00 05/23/20 19:59 03/08/20 20:53 Dextrose (Dextrose 50%) 25 ml Q30M PRN IV Hypoglycemia 02/23/20 09:00 05/23/20 08:59 Dextrose (Dextrose 50%) 50 ml Q30M PRN IV Hypoglycemia 02/23/20 09:00 05/23/20 08:59 Diphenhydramine HCl (Benadryl) 25 mg Q6H PRN ORAL Itching/Pruritis 02/22/20 14:15 03/23/20 14:14 02/26/20 01:34 Fentanyl Citrate 2500 mcg/Sodium Chloride 250 ml @ 0 mls/hr Q24H IV 03/08/20 22:15 03/15/20 22:14 03/09/20 07:06 Fluconazole/ Sodium Chloride 200 ml @ 200 mls/hr Q24H IV 03/06/20 20:00 03/13/20 19:59 03/08/20 20:53 Insulin Aspart (NovoLOG) Q6HR SUBQ 02/28/20 18:00 05/28/20 17:59 03/09/20 06:17 Metoclopramide HCl (Reglan) 5 mg Q6HR IVP 03/01/20 12:00 03/31/20 11:59 03/09/20 06:14 Metronidazole (Flagyl) 500 mg EVERY 8 HOURS ORAL 03/06/20 22:00 03/13/20 21:59 03/09/20 06:15 Midazolam HCl 100 ml @ 0 mls/hr Q24H IV 02/26/20 15:06 05/26/20 15:05 02/26/20 15:48 Norepinephrine Bitartrate 8 mg/ Dextrose 500 ml @ 0 mls/hr Q24H IV 02/23/20 19:01 03/24/20 19:00 03/09/20 10:44 Pantoprazole (Protonix) 40 mg DAILY IVP 02/23/20 09:30 03/24/20 09:29 03/09/20 08:23 Phenylephrine HCl 50 mg/Dextrose 250 ml @ 6 mls/hr Q24H IV 02/29/20 10:45 03/30/20 10:44 03/09/20 06:19 Vancomycin HCl (Vanco rx to dose) 1 ea DAILY PRN MISC Per rx protocol 03/06/20 18:15 04/05/20 18:14 Vancomycin HCl 1 gm/Sodium Chloride 275 ml @ 183.708 mls/hr ONCE IVPB 03/09/20 10:00 03/09/20 12:00 03/09/20 09:53 Assessment/Plan Assessment/Plan IMPRESSION: 1. Respiratory failure. 2. Bilateral pneumonia. + COVID 19 3. Pulmonary edema. 4. Diabetes mellitus. 5. Left PTX with subcut emphysema; s/p chest tube DISCUSSION: Positive COVID 19 pcr The patient is critically ill at this point in time. Poor prognosis Continue pressors Continue broad-spectrum antibiotics. Continue respiratory support; will adjust vent settings I will follow carefully. S/p chest tube Continue Ac mode 100 FiO2 and PEEP 5 SaO2 97% Decreased PEEP due to PTX Martine Rodriguez Omar Syed MD March 09, 2020 11:03
--- NOTE | 2020-03-09 11:10 | Hematology/Onc Progress Note ---
Assessment/Plan Assessment/Plan # Severe thrombocytopenia - potential causes multifactorial, evaluate liver and viral etiologies to begin, in this particular case, given mosf, is due to [id number], has had hyperbilirubinemia, has received heparin and zosyn both culprits as well --> Hep panel and HIV ordered -- neg --> US abd to evaluate for cirrhosis and hsm ordered ->when covid is negative --> Peripheral smear ordered to evaluate for blasts /schistocytes (ALSO HAVE Ordered for DIC panel)-->DIC panel reviewed, D-dimer high, inr higher, hapto pending --> abx and other meds have been reviewed --> ok for ppx if plt >50k w/ either heparin or lovenox --> Transfuse if Plt < 20k and fever, or if Plt < 10k without fever --> off heparin now, have ordered for hit-pf4 antibody test-->neg --> plt trend 15-->20k-->37k->42->19-->32k --> plt transfusion: 03/07, --> HOLD LOVENOX SQ # Anemia of chronic disease due to underlying chronic medical issues, multifactorial v Gi bleed --> Anemia workup has been ordered, rule out gi bleed --> No evidence of hemolysis is noted, peripheral smear has been reviewed. --> Hgb goal >7. Transfuse prn. --> Epogen or iron at this time is not particularly indicated --> Medications have been reviewed --> low threshold for gi evaluation in case has occult + --> bone marrow biopsy is not indicated given the other more likely causes --> hgb trend 9.9-->9.7-->8.6->10-->8.8-->10.1 # Leukocytosis with septic shock 2/2 due to covid 19 --> on abx as per id -->zosyn/doxy/vanc-->cefepime/vanc --> wbc remains elev 17k-->22-->15.1 # Acute Hypoxic Respiratory Failure --> now s/p vent --> in icu # HCAP COVID positive --> abx, plaq and supp care # Jaundiced with Hyperbilirubinemia --> per gi--> with ogt --> have ordered repeat bilis, has improved # Schizophrenia # Bipolar dx # Dvt ppx scds The timing of this note does not necessarily reflect the time of the patient was seen. Greatly appreciate consultation. Subjective Allergies: Coded Allergies: No Known Allergies (Unverified , 01/19/19) Subjective 02/28 remains on vent, og, rush, sedated in icu, on pressors, plt 15k, smear pending 03/02 icu, levo gtt, s/p ffp x2 units, on abx, labs pending 03/03 remains on vent with ogt, no bleeding, no night sweats 03/04 no bleeding, meds noted, no f/c, no night sweats 03/06 intubated, left chest tube in pace, with of, no bleeding 03/07 nv, remains on vent, with left chest tube, with ogt, no bleeding, plt lower 03/08 icu, s/p plt transfusion, plt improved to 23k, on cefepime/vanc 03/09 no overnight events, iv abx, bp stable, plt 22k Objective Objective Current Medications Medications (Trade) Dose Ordered Sig/Cirilo Route PRN Reason Start Time Stop Time Status Last Admin Dose Admin Acetaminophen (Tylenol) 650 mg Q4H PRN ORAL Fever 02/22/20 14:15 03/23/20 14:14 02/28/20 17:52 Acetaminophen (Tylenol) 650 mg Q4H PRN ORAL Mild Pain (Pain Scale 1-3) 02/22/20 14:15 03/23/20 14:14 03/03/20 17:31 Acetaminophen (Tylenol) 650 mg Q4H PRN RECTAL Mild Pain (Pain Scale 1-3) 02/22/20 14:15 03/23/20 14:14 02/22/20 21:28 Acetaminophen (Tylenol) 650 mg Q4H PRN RECTAL FEVER 02/22/20 14:15 03/23/20 14:14 03/06/20 04:20 Albumin Human 100 ml @ 100 mls/hr BID ONCE IV 03/09/20 18:00 03/09/20 18:59 Cefepime HCl 2 gm/ Dextrose 100 ml @ 200 mls/hr Q12HR IVPB 03/06/20 21:00 03/13/20 20:59 03/09/20 08:22 Chlorhexidine Gluconate (Maira-Hex 2%) 1 applic DAILY@2000 TOPIC 02/23/20 20:00 05/23/20 19:59 03/08/20 20:53 Dextrose (Dextrose 50%) 25 ml Q30M PRN IV Hypoglycemia 02/23/20 09:00 05/23/20 08:59 Dextrose (Dextrose 50%) 50 ml Q30M PRN IV Hypoglycemia 02/23/20 09:00 05/23/20 08:59 Diphenhydramine HCl (Benadryl) 25 mg Q6H PRN ORAL Itching/Pruritis 02/22/20 14:15 03/23/20 14:14 02/26/20 01:34 Fentanyl Citrate 2500 mcg/Sodium Chloride 250 ml @ 0 mls/hr Q24H IV 03/08/20 22:15 03/15/20 22:14 03/09/20 07:06 Fluconazole/ Sodium Chloride 200 ml @ 200 mls/hr Q24H IV 03/06/20 20:00 03/13/20 19:59 03/08/20 20:53 Insulin Aspart (NovoLOG) Q6HR SUBQ 02/28/20 18:00 05/28/20 17:59 03/09/20 06:17 Metoclopramide HCl (Reglan) 5 mg Q6HR IVP 03/01/20 12:00 03/31/20 11:59 03/09/20 06:14 Metronidazole (Flagyl) 500 mg EVERY 8 HOURS ORAL 03/06/20 22:00 03/13/20 21:59 03/09/20 06:15 Midazolam HCl 100 ml @ 0 mls/hr Q24H IV 02/26/20 15:06 05/26/20 15:05 02/26/20 15:48 Norepinephrine Bitartrate 8 mg/ Dextrose 500 ml @ 0 mls/hr Q24H IV 02/23/20 19:01 03/24/20 19:00 03/09/20 10:44 Pantoprazole (Protonix) 40 mg DAILY IVP 02/23/20 09:30 03/24/20 09:29 03/09/20 08:23 Phenylephrine HCl 50 mg/Dextrose 250 ml @ 6 mls/hr Q24H IV 02/29/20 10:45 03/30/20 10:44 03/09/20 06:19 Vancomycin HCl (Vanco rx to dose) 1 ea DAILY PRN MISC Per rx protocol 03/06/20 18:15 04/05/20 18:14 Vancomycin HCl 1 gm/Sodium Chloride 275 ml @ 183.708 mls/hr ONCE IVPB 03/09/20 10:00 03/09/20 12:00 03/09/20 09:53 Last 24 Hour Vital Signs Date Time Temp Pulse Resp B/P (MAP) Pulse Ox O2 Delivery O2 Flow Rate FiO2 03/09/20 10:44 107/43 03/09/20 09:00 115 26 106/39 (61) 94 03/09/20 08:30 113 26 98/39 (58) 94 03/09/20 08:00 Mechanical Ventilator 03/09/20 08:00 99.0 114 26 109/41 (63) 95 03/09/20 08:00 100 03/09/20 07:30 116 26 109/41 (63) 95 03/09/20 07:15 115 26 100 03/09/20 07:06 26 104/43 Mechanical Ventilator 100 03/09/20 07:00 115 24 104/43 (63) 96 03/09/20 06:45 116 24 106/41 (62) 96 03/09/20 06:30 117 22 112/45 (67) 94 03/09/20 06:30 114 22 03/09/20 06:19 116 66/26 03/09/20 06:18 66/26 03/09/20 06:15 114 22 118/45 (69) 86 03/09/20 06:00 88 22 60/26 (37) 03/09/20 05:45 99 26 76/31 (46) 03/09/20 05:30 104 27 90/30 (50) 86 03/09/20 05:15 115 23 109/40 (63) 95 03/09/20 05:00 117 22 133/53 (79) 95 03/09/20 05:00 22 133/53 Mechanical Ventilator 100 03/09/20 05:00 133/53 03/09/20 04:45 116 24 130/48 (75) 94 03/09/20 04:30 117 22 122/50 (74) 94 03/09/20 04:15 117 20 122/50 (74) 95 03/09/20 04:00 100 03/09/20 04:00 118 03/09/20 04:00 20 122/50 Mechanical Ventilator 100 03/09/20 04:00 122/50 03/09/20 04:00 Mechanical Ventilator 03/09/20 04:00 98.5 117 18 123/42 (69) 94 03/09/20 03:52 118 24 100 03/09/20 03:45 118 20 117/48 (71) 94 03/09/20 03:30 118 20 123/48 (73) 93 03/09/20 03:15 116 20 122/44 (70) 92 03/09/20 03:00 117 22 112/47 (68) 88 03/09/20 03:00 20 122/44 Mechanical Ventilator 100 03/09/20 03:00 122/44 03/09/20 02:45 122 22 124/61 (82) 88 03/09/20 02:30 119 25 133/51 (78) 89 03/09/20 02:15 116 24 90/35 (53) 88 03/09/20 02:00 24 90/35 Mechanical Ventilator 100 03/09/20 02:00 90/35 03/09/20 02:00 116 25 102/42 (62) 90 03/09/20 01:45 117 23 96/42 (60) 91 03/09/20 01:30 118 22 93/42 (59) 90 03/09/20 01:15 118 23 102/40 (60) 89 03/09/20 01:01 25 102/40 Mechanical Ventilator 40 03/09/20 01:00 120 26 105/41 (62) 87 03/09/20 01:00 95/40 03/09/20 00:53 120 21 106/37 (60) 85 03/09/20 00:51 66/34 03/09/20 00:45 102 24 66/34 (45) 83 03/09/20 00:30 111 29 76/29 (45) 91 03/09/20 00:15 118 27 100/38 (58) 90 03/09/20 00:07 Mechanical Ventilator 03/09/20 00:06 100 03/09/20 00:03 95/40 03/09/20 00:00 98.7 119 26 95/40 (58) 89 03/09/20 00:00 119 03/08/20 23:45 120 26 107/42 (63) 89 03/08/20 23:30 119 20 108/40 (62) 82 03/08/20 23:26 102 22 89/40 (56) 84 03/08/20 23:20 105 29 100 03/08/20 23:17 105 24 64/25 (38) 03/08/20 23:15 107 27 64/27 (39) 79 03/08/20 23:00 111 27 77/33 (48) 82 03/08/20 23:00 27 64/27 Mechanical Ventilator 100 03/08/20 23:00 64/27 03/08/20 22:45 116 28 102/35 (57) 88 03/08/20 22:30 116 24 125/46 (72) 89 03/08/20 22:15 116 25 120/51 (74) 90 03/08/20 22:15 24 91/39 Mechanical Ventilator 100 03/08/20 22:00 117 23 121/46 (71) 92 03/08/20 22:00 24 121/46 Mechanical Ventilator 100 03/08/20 22:00 121/46 03/08/20 21:45 117 22 117/50 (72) 95 03/08/20 21:30 117 24 113/42 (65) 95 03/08/20 21:15 115 20 104/45 (64) 95 03/08/20 21:00 112 19 91/39 (56) 94 03/08/20 21:00 20 104/45 Mechanical Ventilator 40 03/08/20 21:00 104/45 03/08/20 20:58 112 65/24 03/08/20 20:45 94 21 65/24 (38) 84 03/08/20 20:30 96 21 49/19 (29) 03/08/20 20:15 101 22 65/26 (39) 87 03/08/20 20:00 Mechanical Ventilator 03/08/20 20:00 100 03/08/20 20:00 25 80/31 Mechanical Ventilator 100 03/08/20 20:00 80/31 03/08/20 20:00 107 20 80/31 (47) 93 03/08/20 20:00 103 03/08/20 19:50 110 29 100 03/08/20 19:45 110 27 110/52 (71) 92 03/08/20 19:30 98.3 111 25 118/46 (70) 92 03/08/20 19:15 110 29 113/48 (69) 92 03/08/20 19:00 109 27 118/50 (72) 93 03/08/20 19:00 28 118/50 Mechanical Ventilator 100 03/08/20 19:00 118/50 03/08/20 18:15 118/47 03/08/20 18:00 109 26 118/47 (70) 94 03/08/20 17:30 110 23 119/44 (69) 94 03/08/20 17:00 24 122/47 Mechanical Ventilator 03/08/20 17:00 122/47 03/08/20 17:00 108 24 122/47 (72) 93 03/08/20 16:45 104 29 71/28 (42) 90 03/08/20 16:30 98.1 108 29 131/50 (77) 94 03/08/20 16:15 109 27 130/49 (76) 93 03/08/20 16:00 100 03/08/20 16:00 108 03/08/20 16:00 Mechanical Ventilator 03/08/20 16:00 29 138/50 Mechanical Ventilator 03/08/20 16:00 138/50 03/08/20 16:00 108 29 138/50 (79) 93 03/08/20 15:09 105 25 100 03/08/20 15:06 28 Mechanical Ventilator 03/08/20 15:00 126/46 03/08/20 15:00 104 23 126/46 (72) 94 03/08/20 14:45 104 21 124/47 (72) 95 03/08/20 14:30 104 22 127/54 (78) 96 03/08/20 14:15 102 23 119/45 (69) 97 03/08/20 14:00 103 21 116/51 (72) 97 03/08/20 14:00 116/51 03/08/20 14:00 102 23 116/51 (72) 97 03/08/20 13:45 100 21 111/45 (67) 97 03/08/20 13:36 100 22 108/49 (68) 97 03/08/20 13:32 98 22 93/48 (63) 97 03/08/20 13:30 99 21 109/42 (64) 97 03/08/20 13:30 99/41 03/08/20 13:15 96 20 100/45 (63) 97 03/08/20 13:00 96 20 99/41 (60) 96 03/08/20 13:00 20 99/41 Mechanical Ventilator 03/08/20 13:00 99/41 03/08/20 12:45 98 20 103/42 (62) 96 03/08/20 12:30 99 20 101/44 (63) 96 03/08/20 12:15 100 20 101/44 (63) 95 03/08/20 12:00 97.8 101 20 106/41 (62) 95 03/08/20 12:00 99 03/08/20 12:00 20 106/41 Mechanical Ventilator 03/08/20 12:00 106/41 03/08/20 12:00 100 03/08/20 12:00 Mechanical Ventilator 03/08/20 11:45 100 20 117/43 (67) 94 03/08/20 11:30 100 20 111/44 (66) 96 03/08/20 11:28 101 20 100 03/08/20 11:00 101 20 108/46 (66) 97 03/08/20 11:00 101 20 108/46 (66) 97 03/08/20 11:00 20 108/46 Mechanical Ventilator 03/08/20 11:00 108/46 03/08/20 10:45 101 106/41 03/08/20 10:45 102 21 109/49 (69) 97 03/08/20 10:30 103 20 110/45 (66) 97 03/08/20 10:15 103 20 109/47 (67) 97 03/08/20 10:04 104 20 105/43 (63) 98 03/08/20 10:03 104 20 100/41 (60) 98 03/08/20 10:00 101 22 88/52 (64) 98 03/08/20 10:00 22 88/52 Mechanical Ventilator 03/08/20 10:00 88/52 03/08/20 09:35 105 21 112/48 (69) 97 03/08/20 09:32 104 20 86/47 (60) 96 03/08/20 09:30 86/47 03/08/20 09:19 107 21 93/40 (57) 95 03/08/20 09:17 107 20 89/46 (60) 94 03/08/20 09:15 106 20 82/43 (56) 95 03/08/20 09:07 109 20 90/44 (59) 95 03/08/20 09:00 22 99/48 Mechanical Ventilator 03/08/20 09:00 99/48 03/08/20 09:00 109 21 99/48 (65) 92 03/08/20 09:00 110 03/08/20 08:47 107 22 124/58 (80) 93 03/08/20 08:35 113 20 113/52 (72) 92 03/08/20 08:30 97.8 111 23 87/68 (74) 91 03/08/20 08:21 109/56 03/08/20 08:15 108 23 98/58 (71) 93 03/08/20 08:00 109 22 96/58 (71) 93 03/08/20 08:00 Mechanical Ventilator 03/08/20 08:00 22 96/58 Mechanical Ventilator 03/08/20 08:00 96/58 03/08/20 08:00 100 03/08/20 07:29 108 23 100 03/08/20 07:00 110 19 106/56 (73) 91 03/08/20 07:00 23 Mechanical Ventilator 90 03/08/20 07:00 109/56 03/08/20 06:30 110 22 03/08/20 06:16 98.3 03/08/20 06:00 112 24 114/58 (76) 93 03/08/20 06:00 24 Mechanical Ventilator 90 03/08/20 06:00 114/58 03/08/20 05:32 22 Mechanical Ventilator 80 03/08/20 05:30 110 24 101/58 (72) 89 03/08/20 05:00 109 23 114/65 (81) 91 03/08/20 05:00 22 Mechanical Ventilator 90 03/08/20 05:00 114/65 03/08/20 04:30 108 24 109/59 (76) 92 03/08/20 04:00 98.3 107 22 101/70 (80) 95 03/08/20 04:00 90 03/08/20 04:00 23 Mechanical Ventilator 90 03/08/20 04:00 101/70 03/08/20 04:00 103 03/08/20 04:00 Mechanical Ventilator 03/08/20 03:30 108 22 111/81 (91) 95 03/08/20 03:30 108 23 90 03/08/20 03:00 108 22 102/79 (87) 95 03/08/20 03:00 23 Mechanical Ventilator 90 03/08/20 03:00 102/79 03/08/20 02:30 108 23 103/61 (75) 95 03/08/20 02:28 114/58 03/08/20 02:00 23 Mechanical Ventilator 90 03/08/20 02:00 115/57 03/08/20 02:00 111 23 115/57 (76) 95 03/08/20 01:30 110 22 111/62 (78) 96 03/08/20 01:00 110 23 106/90 (95) 95 03/08/20 01:00 22 Mechanical Ventilator 90 03/08/20 01:00 106/90 03/08/20 00:30 107 21 128/61 (83) 94 03/08/20 00:00 107 03/08/20 00:00 Mechanical Ventilator 03/08/20 00:00 23 Mechanical Ventilator 90 03/08/20 00:00 92/64 03/08/20 00:00 90 03/08/20 00:00 103 21 88/64 (72) 95 03/07/20 23:30 102 20 90 03/07/20 23:00 23 Mechanical Ventilator 90 03/07/20 23:00 123/66 03/07/20 23:00 108 20 123/66 (85) 95 03/07/20 22:30 111 19 117/70 (86) 94 03/07/20 22:00 108 23 107/70 (82) 95 03/07/20 22:00 22 Mechanical Ventilator 90 03/07/20 22:00 107/70 03/07/20 21:30 109 22 118/67 (84) 97 03/07/20 21:00 90 03/07/20 21:00 103 03/07/20 21:00 24 Mechanical Ventilator 90 03/07/20 21:00 115/63 03/07/20 21:00 106 27 115/63 (80) 94 03/07/20 20:30 107 23 120/58 (78) 95 03/07/20 20:00 22 Mechanical Ventilator 90 03/07/20 20:00 117/70 03/07/20 20:00 98.3 103 22 122/53 (76) 95 03/07/20 20:00 Mechanical Ventilator 03/07/20 19:30 104 25 104/55 (71) 96 03/07/20 19:30 107 25 90 03/07/20 19:25 117/63 03/07/20 19:00 23 Mechanical Ventilator 90 03/07/20 19:00 109/70 03/07/20 19:00 106 23 109/70 (83) 96 03/07/20 18:00 21 Mechanical Ventilator 03/07/20 18:00 125/80 03/07/20 18:00 104 21 125/80 (95) 96 03/07/20 17:51 99 20 80/52 (61) 95 03/07/20 17:45 103 21 93/63 (73) 95 03/07/20 17:37 104 24 110/59 (76) 95 03/07/20 17:30 104 22 118/59 (78) 94 03/07/20 17:15 103 21 116/64 (81) 96 03/07/20 17:00 129/59 03/07/20 17:00 97.4 105 23 129/59 (82) 95 03/07/20 16:39 106 24 90 03/07/20 16:15 105 22 128/62 (84) 96 03/07/20 16:00 90 03/07/20 16:00 103 20 131/72 (91) 97 03/07/20 16:00 20 Mechanical Ventilator 03/07/20 16:00 131/72 03/07/20 16:00 105 03/07/20 16:00 Mechanical Ventilator 03/07/20 15:30 100 21 90 03/07/20 15:15 103 23 123/68 (86) 96 03/07/20 15:06 22 Mechanical Ventilator 03/07/20 15:00 103 23 131/71 (91) 95 03/07/20 15:00 23 Mechanical Ventilator 03/07/20 15:00 131/71 03/07/20 14:30 101 22 127/63 (84) 95 03/07/20 14:15 104 25 125/65 (85) 94 03/07/20 14:15 27 Mechanical Ventilator 03/07/20 14:00 106 27 123/56 (78) 90 03/07/20 14:00 27 Mechanical Ventilator 03/07/20 14:00 123/56 03/07/20 14:00 90 03/07/20 13:41 108 28 80 03/07/20 13:30 105 26 119/79 (92) 91 03/07/20 13:00 103 23 134/57 (82) 94 03/07/20 13:00 23 Mechanical Ventilator 03/07/20 13:00 134/57 03/07/20 12:45 117/58 03/07/20 12:00 Mechanical Ventilator 03/07/20 12:00 97.7 96 20 117/58 (77) 94 03/07/20 12:00 20 Mechanical Ventilator 03/07/20 12:00 117/58 03/07/20 12:00 93 03/07/20 12:00 80 03/07/20 11:50 20 Mechanical Ventilator 03/07/20 11:30 91 20 95/49 (64) 94 03/07/20 11:15 93 20 107/48 (67) 94 Intake and Output 03/08/20 03/09/20 19:00 07:00 Intake Total 1712.50 ml 2145.0 ml Output Total 830 ml 600 ml Balance 882.50 ml 1545.0 ml IV Total 1312.50 ml 1755.0 ml Tube Feeding 350 ml 390 ml Other 50 ml Output Urine Total 500 ml 300 ml Chest Tube Drainage Total 330 ml 300 ml Labs Test 03/06/20 12:05 03/06/20 15:15 03/07/20 04:25 03/07/20 04:38 Urine Osmolality 311 mOsm/kg (429-449) Urine Random Sodium < 20 mmol/L (20-110) Ionized Calcium (Measured) 0.95 mmol/L (1.10-1.35) Urine Color Yellow Urine Appearance Slightly cloudy Urine pH 5 (4.5-8.0) Urine Specific [place] 1.015 (1.005-1.035) Urine Protein 2+ (NEGATIVE) Urine Glucose (UA) Negative (NEGATIVE) Urine Ketones Negative (NEGATIVE) Urine Blood 2+ (NEGATIVE) Urine Nitrite Negative (NEGATIVE) Urine Bilirubin 1+ (NEGATIVE) Urine Ictotest Negative (NEGATIVE) Urine Urobilinogen Normal MG/DL (0.0-1.0) Urine Leukocyte Esterase Negative (NEGATIVE) Urine RBC 0-2 /HPF (0 - 0) Urine WBC 2-4 /HPF (0 - 0) Urine Squamous Epithelial Cells Occasional /LPF Urine Amorphous Sediment Many /LPF (NONE) Urine Bacteria Occasional /HPF (NONE) White Blood Count 22.3 K/UL (4.8-10.8) Red Blood Count 2.75 M/UL (4.70-6.10) Hemoglobin 8.8 G/DL (14.2-18.0) Hematocrit 25.2 % (42.0-52.0) Mean Corpuscular Volume 92 FL (80-99) Mean Corpuscular Hemoglobin 31.9 PG (27.0-31.0) Mean Corpuscular Hemoglobin Concent 34.8 G/DL (32.0-36.0) Red Cell Distribution Width 15.6 % (11.6-14.8) Platelet Count 19 K/UL (150-450) Mean Platelet Volume 10.0 FL (6.5-10.1) Neutrophils (%) (Auto) % (45.0-75.0) Lymphocytes (%) (Auto) % (20.0-45.0) Monocytes (%) (Auto) % (1.0-10.0) Eosinophils (%) (Auto) % (0.0-3.0) Basophils (%) (Auto) % (0.0-2.0) Differential Total Cells Counted 100 Neutrophils % (Manual) 93 % (45-75) Lymphocytes % (Manual) 1 % (20-45) Monocytes % (Manual) 6 % (1-10) Eosinophils % (Manual) 0 % (0-3) Basophils % (Manual) 0 % (0-2) Band Neutrophils 0 % (0-8) Nucleated Red Blood Cells 1 /100 WBC Platelet Estimate Decreased Platelet Morphology Normal Hypochromasia 2+ Anisocytosis 1+ Spherocytes 1+ Sodium Level 129 MMOL/L (136-145) Potassium Level 3.8 MMOL/L (3.5-5.1) Chloride Level 94 MMOL/L (98-107) Carbon Dioxide Level 29 MMOL/L (21-32) Anion Gap 6 mmol/L (5-15) Blood Urea Nitrogen 37 mg/dL (7-18) Creatinine 1.2 MG/DL (0.55-1.30) Estimat Glomerular Filtration Rate 58.9 mL/min (>60) Glucose Level 121 MG/DL (74-106) Calcium Level 7.1 MG/DL (8.5-10.1) Phosphorus Level 3.8 MG/DL (2.5-4.9) Magnesium Level 2.0 MG/DL (1.8-2.4) Total Bilirubin 7.6 MG/DL (0.2-1.0) Direct Bilirubin 6.3 MG/DL (0.0-0.3) Aspartate Amino Transf (AST/SGOT) 42 U/L (15-37) Alanine Aminotransferase (ALT/SGPT) 27 U/L (12-78) Alkaline Phosphatase 177 U/L (46-116) Total Protein 4.8 G/DL (6.4-8.2) Albumin 1.7 G/DL (3.4-5.0) Globulin 3.1 g/dL Albumin/Globulin Ratio 0.5 (1.0-2.7) Test 03/07/20 09:00 03/08/20 05:30 03/08/20 05:45 03/09/20 04:49 Prothrombin Time 15.8 SEC (9.30-11.50) Prothromb Time International Ratio 1.5 (0.9-1.1) Activated Partial Thromboplast Time 39 SEC (23-33) White Blood Count 15.1 K/UL (4.8-10.8) 27.0 K/UL (4.8-10.8) Red Blood Count 3.19 M/UL (4.70-6.10) 2.94 M/UL (4.70-6.10) Hemoglobin 10.1 G/DL (14.2-18.0) 9.2 G/DL (14.2-18.0) Hematocrit 29.9 % (42.0-52.0) 27.5 % (42.0-52.0) Mean Corpuscular Volume 94 FL (80-99) 93 FL (80-99) Mean Corpuscular Hemoglobin 31.8 PG (27.0-31.0) 31.3 PG (27.0-31.0) Mean Corpuscular Hemoglobin Concent 33.9 G/DL (32.0-36.0) 33.5 G/DL (32.0-36.0) Red Cell Distribution Width 15.4 % (11.6-14.8) 16.1 % (11.6-14.8) Platelet Count 32 K/UL (150-450) 22 K/UL (150-450) Mean Platelet Volume 9.4 FL (6.5-10.1) 10.5 FL (6.5-10.1) Neutrophils (%) (Auto) % (45.0-75.0) % (45.0-75.0) Lymphocytes (%) (Auto) % (20.0-45.0) % (20.0-45.0) Monocytes (%) (Auto) % (1.0-10.0) % (1.0-10.0) Eosinophils (%) (Auto) % (0.0-3.0) % (0.0-3.0) Basophils (%) (Auto) % (0.0-2.0) % (0.0-2.0) Differential Total Cells Counted 100 100 Neutrophils % (Manual) 47 % (45-75) 96 % (45-75) Lymphocytes % (Manual) 3 % (20-45) 2 % (20-45) Monocytes % (Manual) 2 % (1-10) 2 % (1-10) Eosinophils % (Manual) 0 % (0-3) 0 % (0-3) Basophils % (Manual) 0 % (0-2) 0 % (0-2) Myelocytes % 1 % (0-0) Band Neutrophils 47 % (0-8) 0 % (0-8) Nucleated Red Blood Cells 1 /100 WBC 2 /100 WBC Platelet Estimate Decreased Decreased Platelet Morphology Normal Normal Anisocytosis 1+ 1+ Sodium Level 130 MMOL/L (136-145) 121 MMOL/L (136-145) Potassium Level 4.5 MMOL/L (3.5-5.1) 4.3 MMOL/L (3.5-5.1) Chloride Level 94 MMOL/L (98-107) 88 MMOL/L (98-107) Carbon Dioxide Level 25 MMOL/L (21-32) 24 MMOL/L (21-32) Anion Gap 11 mmol/L (5-15) 6 mmol/L (5-15) Blood Urea Nitrogen 37 mg/dL (7-18) 45 mg/dL (7-18) Creatinine 1.5 MG/DL (0.55-1.30) 1.5 MG/DL (0.55-1.30) Estimat Glomerular Filtration Rate 45.5 mL/min (>60) 45.5 mL/min (>60) Glucose Level 116 MG/DL (74-106) 175 MG/DL (74-106) Calcium Level 7.3 MG/DL (8.5-10.1) 7.1 MG/DL (8.5-10.1) Total Bilirubin 7.3 MG/DL (0.2-1.0) 9.0 MG/DL (0.2-1.0) Direct Bilirubin 5.3 MG/DL (0.0-0.3) 6.6 MG/DL (0.0-0.3) Aspartate Amino Transf (AST/SGOT) 43 U/L (15-37) 53 U/L (15-37) Alanine Aminotransferase (ALT/SGPT) 29 U/L (12-78) 23 U/L (12-78) Alkaline Phosphatase 173 U/L (46-116) 355 U/L (46-116) Total Protein 5.4 G/DL (6.4-8.2) 4.7 G/DL (6.4-8.2) Albumin 1.9 G/DL (3.4-5.0) 1.5 G/DL (3.4-5.0) Globulin 3.5 g/dL 3.2 g/dL Albumin/Globulin Ratio 0.5 (1.0-2.7) 0.5 (1.0-2.7) Hypochromasia 2+ Spherocytes 2+ Random Vancomycin Level 12.6 ug/mL Height (Feet): 5 Height (Inches): 5.00 Weight (Pounds): 160 Objective Physical Exam: Vitals: reviewed General: NAD HEENT: nc, at ++Ogt Neck: supple Chest: in the icu, remains intubated++, left chest tube+++ Cardiovascular: RRR, no s3, s4 Abdomen: soft, nontender, nd Extremities: no cce, normal range of motion Neuro: alert to self : Montez Maradiaga MD March 09, 2020 11:10
--- NOTE | 2020-03-09 11:35 | General Progress Note ---
Assessment/Plan Status: unchanged Assessment/Plan: 74 y/o M from [place], PMH HTN, DMT2, dementia, Alzheimers dx, h/o CVA/TIA, h/o DVT, schizophrenia who presents for Fever. In the ED, pt found to be septic, Tm 100.9 , RR22, WBC 7.3, Lactic acid 2.8, and ABG revealed acute hypoxic respiratory failure. Pt was intubated and admitted to ICU for acute hypoxic respiratory failure, COVID positive. #Septic shock 2/2 #Acute Hypoxic Respiratory Failure 2/2 HCAP/COVID+ and CHF #Pneumothorax s/p left Chest tube 03/01 -Appreciate ICU level care -pt intubated in ED, 02/21, Cont Vent management per pulm -Cont. COVID isolation protocol -Fentanyl for sedation, Levophed for pressure support -Chest tube management per surgery -BNP >2000, echo EF 50% -s/p plaquenil (stopped on 02/27) -Trend Predictive Markers Q3 days, Ddimer, CRP, Procalcitonin, Ferritin -ID: vanc, diflucan, cefepime, flagyl --> repeat amaya Cx 03/06 BCX NGTD, SCx GN bacilli #Thrombocytopenia #Anemia of chronic dx -likely multifactorial, 2/2 to above/sepsis/COVID -Epogen, iron not indicated at this time given acute infection -s/p blood transfusion -Heme consulted, Dr. Verde: ok for ppx if plts >50k w/either heparin or lovenox #Jaundiced - stable #Hyperbilirubinemia -elevated t bili, direct bili likely 2/2 sepsis -appreciate GI recs #Hyponatremia #Hypokalemia #Hypernatremia - improved -likely 2/2 dehydration -ctm electrolytes, replace PRN -d/w nephro, pt likely intravascularly dry, will give albumin #Type 2 DM -holding home metformin -accuchecks q6h -ISS changed from sensitive to moderate #HTN -holding home bp meds given septic shock -holding Lasix 20 mg q daily, benazepril 5 mg q daily #Alzheimer disease/Dementia #Schizophrenia/Bipolar dx -reviewed MAR from OR, no home meds for schizophrenia/bipolar dx noted -holding home aricept given clinical picture DVT PPx: lovenox Time spent: 57 mins, 31 mins spent on critical care time. Critical Care Services performed include: Telemetry Review Hemodynamic measurement interpretation Laboratory data review and interpretation Medication adjustments Radiographic images reviewed Discussion of patient's care with ICU team, Nursing staff and consulting physicians, Dr. Maritza Neal on POC. Time of note may not reflect time of encounter. Subjective Allergies: Coded Allergies: No Known Allergies (Unverified , 01/19/19) Subjective F/u for acute respiratory failure, COVID+, s/p intubation on 02/21, PTX s/p left chest tube placed on 03/01 by general sx. Pt remains hypotensive, on max pressure support w/levo and cynthia, FiO2 100%, no PEEP Cr 1.5 and Na 121 today. Unable to obtain ROS due to clinical picture. Objective Last 24 Hour Vital Signs Date Time Temp Pulse Resp B/P (MAP) Pulse Ox O2 Delivery O2 Flow Rate FiO2 03/09/20 10:44 107/43 03/09/20 09:00 115 26 106/39 (61) 94 03/09/20 08:30 113 26 98/39 (58) 94 03/09/20 08:00 Mechanical Ventilator 03/09/20 08:00 99.0 114 26 109/41 (63) 95 03/09/20 08:00 100 03/09/20 07:30 116 26 109/41 (63) 95 03/09/20 07:15 115 26 100 03/09/20 07:06 26 104/43 Mechanical Ventilator 100 03/09/20 07:00 115 24 104/43 (63) 96 03/09/20 06:45 116 24 106/41 (62) 96 03/09/20 06:30 117 22 112/45 (67) 94 03/09/20 06:30 114 22 03/09/20 06:19 116 66/26 03/09/20 06:18 66/26 03/09/20 06:15 114 22 118/45 (69) 86 03/09/20 06:00 88 22 60/26 (37) 03/09/20 05:45 99 26 76/31 (46) 03/09/20 05:30 104 27 90/30 (50) 86 03/09/20 05:15 115 23 109/40 (63) 95 03/09/20 05:00 117 22 133/53 (79) 95 03/09/20 05:00 22 133/53 Mechanical Ventilator 100 03/09/20 05:00 133/53 03/09/20 04:45 116 24 130/48 (75) 94 03/09/20 04:30 117 22 122/50 (74) 94 03/09/20 04:15 117 20 122/50 (74) 95 03/09/20 04:00 100 03/09/20 04:00 118 03/09/20 04:00 20 122/50 Mechanical Ventilator 100 03/09/20 04:00 122/50 03/09/20 04:00 Mechanical Ventilator 03/09/20 04:00 98.5 117 18 123/42 (69) 94 03/09/20 03:52 118 24 100 03/09/20 03:45 118 20 117/48 (71) 94 03/09/20 03:30 118 20 123/48 (73) 93 03/09/20 03:15 116 20 122/44 (70) 92 03/09/20 03:00 117 22 112/47 (68) 88 03/09/20 03:00 20 122/44 Mechanical Ventilator 100 03/09/20 03:00 122/44 03/09/20 02:45 122 22 124/61 (82) 88 03/09/20 02:30 119 25 133/51 (78) 89 03/09/20 02:15 116 24 90/35 (53) 88 03/09/20 02:00 24 90/35 Mechanical Ventilator 100 03/09/20 02:00 90/35 03/09/20 02:00 116 25 102/42 (62) 90 03/09/20 01:45 117 23 96/42 (60) 91 03/09/20 01:30 118 22 93/42 (59) 90 03/09/20 01:15 118 23 102/40 (60) 89 03/09/20 01:01 25 102/40 Mechanical Ventilator 40 03/09/20 01:00 120 26 105/41 (62) 87 03/09/20 01:00 95/40 03/09/20 00:53 120 21 106/37 (60) 85 03/09/20 00:51 66/34 03/09/20 00:45 102 24 66/34 (45) 83 5/13/20 00:30 111 29 76/29 (45) 91 03/09/20 00:15 118 27 100/38 (58) 90 03/09/20 00:07 Mechanical Ventilator 03/09/20 00:06 100 03/09/20 00:03 95/40 03/09/20 00:00 98.7 119 26 95/40 (58) 89 03/09/20 00:00 119 03/08/20 23:45 120 26 107/42 (63) 89 03/08/20 23:30 119 20 108/40 (62) 82 03/08/20 23:26 102 22 89/40 (56) 84 03/08/20 23:20 105 29 100 03/08/20 23:17 105 24 64/25 (38) 03/08/20 23:15 107 27 64/27 (39) 79 03/08/20 23:00 111 27 77/33 (48) 82 03/08/20 23:00 27 64/27 Mechanical Ventilator 100 03/08/20 23:00 64/27 03/08/20 22:45 116 28 102/35 (57) 88 03/08/20 22:30 116 24 125/46 (72) 89 03/08/20 22:15 116 25 120/51 (74) 90 03/08/20 22:15 24 91/39 Mechanical Ventilator 100 03/08/20 22:00 117 23 121/46 (71) 92 03/08/20 22:00 24 121/46 Mechanical Ventilator 100 03/08/20 22:00 121/46 03/08/20 21:45 117 22 117/50 (72) 95 03/08/20 21:30 117 24 113/42 (65) 95 03/08/20 21:15 115 20 104/45 (64) 95 03/08/20 21:00 112 19 91/39 (56) 94 03/08/20 21:00 20 104/45 Mechanical Ventilator 40 03/08/20 21:00 104/45 03/08/20 20:58 112 65/24 03/08/20 20:45 94 21 65/24 (38) 84 03/08/20 20:30 96 21 49/19 (29) 03/08/20 20:15 101 22 65/26 (39) 87 03/08/20 20:00 Mechanical Ventilator 03/08/20 20:00 100 03/08/20 20:00 25 80/31 Mechanical Ventilator 100 03/08/20 20:00 80/31 03/08/20 20:00 107 20 80/31 (47) 93 03/08/20 20:00 103 03/08/20 19:50 110 29 100 03/08/20 19:45 110 27 110/52 (71) 92 03/08/20 19:30 98.3 111 25 118/46 (70) 92 03/08/20 19:15 110 29 113/48 (69) 92 03/08/20 19:00 109 27 118/50 (72) 93 03/08/20 19:00 28 118/50 Mechanical Ventilator 100 03/08/20 19:00 118/50 03/08/20 18:15 118/47 03/08/20 18:00 109 26 118/47 (70) 94 03/08/20 17:30 110 23 119/44 (69) 94 03/08/20 17:00 24 122/47 Mechanical Ventilator 03/08/20 17:00 122/47 03/08/20 17:00 108 24 122/47 (72) 93 03/08/20 16:45 104 29 71/28 (42) 90 03/08/20 16:30 98.1 108 29 131/50 (77) 94 03/08/20 16:15 109 27 130/49 (76) 93 03/08/20 16:00 100 03/08/20 16:00 108 03/08/20 16:00 Mechanical Ventilator 03/08/20 16:00 29 138/50 Mechanical Ventilator 03/08/20 16:00 138/50 03/08/20 16:00 108 29 138/50 (79) 93 03/08/20 15:09 105 25 100 03/08/20 15:06 28 Mechanical Ventilator 03/08/20 15:00 126/46 03/08/20 15:00 104 23 126/46 (72) 94 03/08/20 14:45 104 21 124/47 (72) 95 03/08/20 14:30 104 22 127/54 (78) 96 03/08/20 14:15 102 23 119/45 (69) 97 03/08/20 14:00 103 21 116/51 (72) 97 03/08/20 14:00 116/51 03/08/20 14:00 102 23 116/51 (72) 97 03/08/20 13:45 100 21 111/45 (67) 97 03/08/20 13:36 100 22 108/49 (68) 97 03/08/20 13:32 98 22 93/48 (63) 97 03/08/20 13:30 99 21 109/42 (64) 97 03/08/20 13:30 99/41 03/08/20 13:15 96 20 100/45 (63) 97 03/08/20 13:00 96 20 99/41 (60) 96 03/08/20 13:00 20 99/41 Mechanical Ventilator 03/08/20 13:00 99/41 03/08/20 12:45 98 20 103/42 (62) 96 03/08/20 12:30 99 20 101/44 (63) 96 03/08/20 12:15 100 20 101/44 (63) 95 03/08/20 12:00 97.8 101 20 106/41 (62) 95 03/08/20 12:00 99 03/08/20 12:00 20 106/41 Mechanical Ventilator 03/08/20 12:00 106/41 03/08/20 12:00 100 03/08/20 12:00 Mechanical Ventilator 03/08/20 11:45 100 20 117/43 (67) 94 Intake and Output 03/08/20 03/09/20 19:00 07:00 Intake Total 1712.50 ml 2145.0 ml Output Total 830 ml 600 ml Balance 882.50 ml 1545.0 ml IV Total 1312.50 ml 1755.0 ml Tube Feeding 350 ml 390 ml Other 50 ml Output Urine Total 500 ml 300 ml Chest Tube Drainage Total 330 ml 300 ml Laboratory Tests 03/09/20 04:49: White Blood Count 27.0#*H, Red Blood Count 2.94L, Hemoglobin 9.2L, Hematocrit 27.5L, Mean Corpuscular Volume 93, Mean Corpuscular Hemoglobin 31.3H, Mean Corpuscular Hemoglobin Concent 33.5, Red Cell Distribution Width 16.1H, Platelet Count 22L, Mean Platelet Volume 10.5H, Neutrophils (%) (Auto) , Lymphocytes (%) (Auto) , Monocytes (%) (Auto) , Eosinophils (%) (Auto) , Basophils (%) (Auto) , Differential Total Cells Counted 100, Neutrophils % ( Manual) 96H, Lymphocytes % (Manual) 2L, Monocytes % (Manual) 2, Eosinophils % ( Manual) 0, Basophils % (Manual) 0, Band Neutrophils 0, Nucleated Red Blood Cells 2, Platelet Estimate DecreasedL, Platelet Morphology Normal, Hypochromasia 2+, Anisocytosis 1+, Spherocytes 2+, Sodium Level 121L, Potassium Level 4.3, Chloride Level 88L, Carbon Dioxide Level 24, Anion Gap 6, Blood Urea Nitrogen 45H, Creatinine 1.5H, Estimat Glomerular Filtration Rate 45.5, Glucose Level 175H, Calcium Level 7.1L, Total Bilirubin 9.0H, Direct Bilirubin 6.6H, Aspartate Amino Transf (AST/SGOT) 53H, Alanine Aminotransferase (ALT/SGPT) 23, Alkaline Phosphatase 355H, Total Protein 4.7L, Albumin 1.5L, Globulin 3.2, Albumin/Globulin Ratio 0.5L, Random Vancomycin Level 12.6 Height (Feet): 5 Height (Inches): 5.00 Weight (Pounds): 160 Objective General: intubated, sedated, improved jaundice HEENT: NCAT, ETT in place, OG tube in place CV: Sinus Tachycardic on tele Pulm: equal rise in lungs, left chest tube draining 300 cc per nurse overnight GI: abd appears non-distended Ext: No lower extremity edema bilaterally Gosia Nunez M.D. March 09, 2020 11:35
--- NOTE | 2020-03-09 13:48 | Cardiac Electrophysiology PN ---
Assessment/Plan Assessment/Plan 1. Respiratory failure due to COVID pneumonia and CHF as BNP is more than 2000. Echo EF 50%. His white count however is only 7.2 with lymphopenia On the Vent 100% Fio2, No PEEP 2. Septic shock likely due to pneumonia and dehydration. Maxed out on Levo and Albina and on Abx. 3. CXR, Since 02/26/2020, interim development of small bilateral pneumothoraces, right greater than left, and extensive subcutaneous emphysema. There may also be minimal pneumomediastinum. S/P Left chest tube 03/02/20 4. Hypernatremia, resolved with IV fluids. 5. Dehydration. 6. Severe anemia s/p 2 units PRBC DW RN Subjective Subjective In ICU , maxed out on Levo and ALBINA on the vent with Fio2 100% and No PEEP . EF 50%. Covid PCR is positive. S/P Left chest tube placement 03/02/[address] Sales and draining to water seal Had 2 units of PRBC and still draining 300 cc overnight Objective Last 24 Hour Vital Signs Date Time Temp Pulse Resp B/P (MAP) Pulse Ox O2 Delivery O2 Flow Rate FiO2 03/09/20 11:26 112 26 100 03/09/20 11:00 22 104/43 Mechanical Ventilator 100 03/09/20 11:00 104/43 03/09/20 10:44 107/43 03/09/20 10:43 101/42 03/09/20 10:00 25 106/43 Mechanical Ventilator 100 03/09/20 10:00 106/43 03/09/20 09:00 25 109/40 Mechanical Ventilator 100 03/09/20 09:00 109/40 03/09/20 09:00 115 26 106/39 (61) 94 03/09/20 08:30 113 26 98/39 (58) 94 03/09/20 08:00 Mechanical Ventilator 03/09/20 08:00 26 105/41 Mechanical Ventilator 100 03/09/20 08:00 105/41 03/09/20 08:00 99.0 114 26 109/41 (63) 95 03/09/20 08:00 100 03/09/20 07:30 116 26 109/41 (63) 95 03/09/20 07:15 115 26 100 03/09/20 07:06 26 104/43 Mechanical Ventilator 100 03/09/20 07:00 101/40 03/09/20 07:00 115 24 104/43 (63) 96 03/09/20 06:45 116 24 106/41 (62) 96 03/09/20 06:30 117 22 112/45 (67) 94 03/09/20 06:30 114 22 03/09/20 06:19 116 66/26 03/09/20 06:18 66/26 03/09/20 06:15 114 22 118/45 (69) 86 03/09/20 06:00 88 22 60/26 (37) 03/09/20 05:45 99 26 76/31 (46) 03/09/20 05:30 104 27 90/30 (50) 86 03/09/20 05:15 115 23 109/40 (63) 95 03/09/20 05:00 117 22 133/53 (79) 95 03/09/20 05:00 22 133/53 Mechanical Ventilator 100 03/09/20 05:00 133/53 03/09/20 04:45 116 24 130/48 (75) 94 03/09/20 04:30 117 22 122/50 (74) 94 03/09/20 04:15 117 20 122/50 (74) 95 03/09/20 04:00 100 03/09/20 04:00 118 03/09/20 04:00 20 122/50 Mechanical Ventilator 100 03/09/20 04:00 122/50 03/09/20 04:00 Mechanical Ventilator 03/09/20 04:00 98.5 117 18 123/42 (69) 94 03/09/20 03:52 118 24 100 03/09/20 03:45 118 20 117/48 (71) 94 03/09/20 03:30 118 20 123/48 (73) 93 03/09/20 03:15 116 20 122/44 (70) 92 03/09/20 03:00 117 22 112/47 (68) 88 03/09/20 03:00 20 122/44 Mechanical Ventilator 100 03/09/20 03:00 122/44 03/09/20 02:45 122 22 124/61 (82) 88 03/09/20 02:30 119 25 133/51 (78) 89 03/09/20 02:15 116 24 90/35 (53) 88 03/09/20 02:00 24 90/35 Mechanical Ventilator 100 03/09/20 02:00 90/35 03/09/20 02:00 116 25 102/42 (62) 90 03/09/20 01:45 117 23 96/42 (60) 91 03/09/20 01:30 118 22 93/42 (59) 90 03/09/20 01:15 118 23 102/40 (60) 89 03/09/20 01:01 25 102/40 Mechanical Ventilator 40 03/09/20 01:00 120 26 105/41 (62) 87 03/09/20 01:00 95/40 03/09/20 00:53 120 21 106/37 (60) 85 03/09/20 00:51 66/34 03/09/20 00:45 102 24 66/34 (45) 83 03/09/20 00:30 111 29 76/29 (45) 91 03/09/20 00:15 118 27 100/38 (58) 90 03/09/20 00:07 Mechanical Ventilator 03/09/20 00:06 100 03/09/20 00:03 95/40 03/09/20 00:00 98.7 119 26 95/40 (58) 89 03/09/20 00:00 119 03/08/20 23:45 120 26 107/42 (63) 89 03/08/20 23:30 119 20 108/40 (62) 82 03/08/20 23:26 102 22 89/40 (56) 84 03/08/20 23:20 105 29 100 03/08/20 23:17 105 24 64/25 (38) 03/08/20 23:15 107 27 64/27 (39) 79 03/08/20 23:00 111 27 77/33 (48) 82 03/08/20 23:00 27 64/27 Mechanical Ventilator 100 03/08/20 23:00 64/27 03/08/20 22:45 116 28 102/35 (57) 88 03/08/20 22:30 116 24 125/46 (72) 89 03/08/20 22:15 116 25 120/51 (74) 90 03/08/20 22:15 24 91/39 Mechanical Ventilator 100 03/08/20 22:00 117 23 121/46 (71) 92 03/08/20 22:00 24 121/46 Mechanical Ventilator 100 03/08/20 22:00 121/46 03/08/20 21:45 117 22 117/50 (72) 95 03/08/20 21:30 117 24 113/42 (65) 95 03/08/20 21:15 115 20 104/45 (64) 95 03/08/20 21:00 112 19 91/39 (56) 94 03/08/20 21:00 20 104/45 Mechanical Ventilator 40 03/08/20 21:00 104/45 03/08/20 20:58 112 65/24 03/08/20 20:45 94 21 65/24 (38) 84 03/08/20 20:30 96 21 49/19 (29) 03/08/20 20:15 101 22 65/26 (39) 87 03/08/20 20:00 Mechanical Ventilator 03/08/20 20:00 100 03/08/20 20:00 25 80/31 Mechanical Ventilator 100 03/08/20 20:00 80/31 03/08/20 20:00 107 20 80/31 (47) 93 03/08/20 20:00 103 03/08/20 19:50 110 29 100 03/08/20 19:45 110 27 110/52 (71) 92 03/08/20 19:30 98.3 111 25 118/46 (70) 92 03/08/20 19:15 110 29 113/48 (69) 92 03/08/20 19:00 109 27 118/50 (72) 93 03/08/20 19:00 28 118/50 Mechanical Ventilator 100 03/08/20 19:00 118/50 03/08/20 18:15 118/47 03/08/20 18:00 109 26 118/47 (70) 94 03/08/20 17:30 110 23 119/44 (69) 94 03/08/20 17:00 24 122/47 Mechanical Ventilator 03/08/20 17:00 122/47 03/08/20 17:00 108 24 122/47 (72) 93 03/08/20 16:45 104 29 71/28 (42) 90 03/08/20 16:30 98.1 108 29 131/50 (77) 94 03/08/20 16:15 109 27 130/49 (76) 93 03/08/20 16:00 100 03/08/20 16:00 108 03/08/20 16:00 Mechanical Ventilator 03/08/20 16:00 29 138/50 Mechanical Ventilator 03/08/20 16:00 138/50 03/08/20 16:00 108 29 138/50 (79) 93 03/08/20 15:09 105 25 100 03/08/20 15:06 28 Mechanical Ventilator 03/08/20 15:00 126/46 03/08/20 15:00 104 23 126/46 (72) 94 03/08/20 14:45 104 21 124/47 (72) 95 03/08/20 14:30 104 22 127/54 (78) 96 03/08/20 14:15 102 23 119/45 (69) 97 03/08/20 14:00 103 21 116/51 (72) 97 03/08/20 14:00 116/51 03/08/20 14:00 102 23 116/51 (72) 97 Intake and Output 03/08/20 03/09/20 19:00 07:00 Intake Total 1712.50 ml 2242.375 ml Output Total 830 ml 600 ml Balance 882.50 ml 1642.375 ml IV Total 1312.50 ml 1852.375 ml Tube Feeding 350 ml 390 ml Other 50 ml Output Urine Total 500 ml 300 ml Chest Tube Drainage Total 330 ml 300 ml Laboratory Tests Test 03/09/20 04:49 White Blood Count 27.0 K/UL (4.8-10.8) #*H Red Blood Count 2.94 M/UL (4.70-6.10) L Hemoglobin 9.2 G/DL (14.2-18.0) L Hematocrit 27.5 % (42.0-52.0) L Mean Corpuscular Volume 93 FL (80-99) Mean Corpuscular Hemoglobin 31.3 PG (27.0-31.0) H Mean Corpuscular Hemoglobin Concent 33.5 G/DL (32.0-36.0) Red Cell Distribution Width 16.1 % (11.6-14.8) H Platelet Count 22 K/UL (150-450) L Mean Platelet Volume 10.5 FL (6.5-10.1) H Neutrophils (%) (Auto) % (45.0-75.0) Lymphocytes (%) (Auto) % (20.0-45.0) Monocytes (%) (Auto) % (1.0-10.0) Eosinophils (%) (Auto) % (0.0-3.0) Basophils (%) (Auto) % (0.0-2.0) Differential Total Cells Counted 100 Neutrophils % (Manual) 96 % (45-75) H Lymphocytes % (Manual) 2 % (20-45) L Monocytes % (Manual) 2 % (1-10) Eosinophils % (Manual) 0 % (0-3) Basophils % (Manual) 0 % (0-2) Band Neutrophils 0 % (0-8) Nucleated Red Blood Cells 2 /100 WBC Platelet Estimate Decreased L Platelet Morphology Normal Hypochromasia 2+ Anisocytosis 1+ Spherocytes 2+ Sodium Level 121 MMOL/L (136-145) L Potassium Level 4.3 MMOL/L (3.5-5.1) Chloride Level 88 MMOL/L (98-107) L Carbon Dioxide Level 24 MMOL/L (21-32) Anion Gap 6 mmol/L (5-15) Blood Urea Nitrogen 45 mg/dL (7-18) H Creatinine 1.5 MG/DL (0.55-1.30) H Estimat Glomerular Filtration Rate 45.5 mL/min (>60) Glucose Level 175 MG/DL (74-106) H Calcium Level 7.1 MG/DL (8.5-10.1) L Total Bilirubin 9.0 MG/DL (0.2-1.0) H Direct Bilirubin 6.6 MG/DL (0.0-0.3) H Aspartate Amino Transf (AST/SGOT) 53 U/L (15-37) H Alanine Aminotransferase (ALT/SGPT) 23 U/L (12-78) Alkaline Phosphatase 355 U/L (46-116) H Total Protein 4.7 G/DL (6.4-8.2) L Albumin 1.5 G/DL (3.4-5.0) L Globulin 3.2 g/dL Albumin/Globulin Ratio 0.5 (1.0-2.7) L Random Vancomycin Level 12.6 ug/mL Microbiology Date/Time Source Procedure Growth Status 03/06/20 15:15 Blood Blood Culture - Preliminary NO GROWTH AFTER 48 HOURS Resulted 03/06/20 15:15 Blood Blood Culture - Preliminary NO GROWTH AFTER 48 HOURS Resulted 03/07/20 04:25 Sputum Gram Stain - Final Resulted 03/07/20 04:25 Sputum Culture - Preliminary Gram Negative Bacillus 1 Gram Negative Bacillus 2 Resulted 03/07/20 04:25 Urine,Clean Catch Urine Culture - Final NO GROWTH AFTER 48 HOURS Complete Objective HEAD AND NECK: No JVD orally intubated. LUNGS: Decreased breath sounds and coarse rhonchi.Left chest SQ emphesyma and Left chest tube is in CARDIOVASCULAR: Regular S1 and S2 with no gallop. ABDOMEN: Soft. EXTREMITIES: No pitting edema. Deric Garcia MD March 09, 2020 13:48
[2020-03-09] MEDS: Norepinephrine Bitartrate 16 MG in D5W 500ml 484 ML IV SCH ×2 (14:34→23:34)
[2020-03-09] MEDS: Dyna-Hex 2% Top Sol 2oz TOPIC SCH (20:12)
--- NOTE | 2020-03-09 20:55 | Surgery Progress Note ---
Surgery Progress Note Subjective Procedure Performed Left tube thoracostomy Additional Comments ill appearing Chest tube with output labs reviewed discussed with pulm this AM Objective Last 24 Hour Vital Signs Date Time Temp Pulse Resp B/P (MAP) Pulse Ox O2 Delivery O2 Flow Rate FiO2 03/09/20 20:44 101 90/35 03/09/20 19:57 104 23 100 03/09/20 19:00 94/39 03/09/20 19:00 12 94/39 Mechanical Ventilator 100 03/09/20 18:30 101 23 85/31 (49) 89 03/09/20 18:00 104 24 91/30 (50) 89 03/09/20 18:00 86/29 03/09/20 18:00 24 86/29 Mechanical Ventilator 100.0 03/09/20 17:30 104 25 90/31 (50) 93 03/09/20 17:00 87/32 03/09/20 17:00 23 87/32 Mechanical Ventilator 100 03/09/20 17:00 104 22 89/33 (51) 92 03/09/20 16:30 107 22 96/38 (57) 90 03/09/20 16:00 Mechanical Ventilator 03/09/20 16:00 110 03/09/20 16:00 99/37 03/09/20 16:00 24 99/37 Mechanical Ventilator 100 03/09/20 16:00 99.3 109 23 96/35 (55) 94 03/09/20 15:48 109 24 100 03/09/20 15:30 110 24 98/36 (56) 94 03/09/20 15:00 94/37 03/09/20 15:00 25 94/37 Mechanical Ventilator 100 03/09/20 15:00 106 24 91/34 (53) 92 03/09/20 14:34 105/41 03/09/20 14:34 113 105/41 03/09/20 14:33 96/34 03/09/20 14:30 113 24 105/41 (62) 92 03/09/20 14:00 100 03/09/20 14:00 110 25 101/42 (61) 94 03/09/20 14:00 25 96/38 Mechanical Ventilator 100 03/09/20 14:00 96/38 03/09/20 13:30 109 22 101/41 (61) 95 03/09/20 13:00 109 21 101/42 (61) 95 03/09/20 13:00 22 102/42 Mechanical Ventilator 100 03/09/20 13:00 102/42 03/09/20 12:30 110 23 98/38 (58) 95 03/09/20 12:00 Mechanical Ventilator 03/09/20 12:00 100 03/09/20 12:00 22 102/45 Mechanical Ventilator 100 03/09/20 12:00 102/45 03/09/20 12:00 112 03/09/20 12:00 99.2 110 21 101/42 (61) 96 03/09/20 11:30 112 22 104/42 (62) 96 03/09/20 11:26 112 26 100 03/09/20 11:00 22 104/43 Mechanical Ventilator 100 03/09/20 11:00 104/43 03/09/20 11:00 113 23 104/42 (62) 97 03/09/20 10:44 107/43 03/09/20 10:43 101/42 03/09/20 10:30 111 25 107/43 (64) 96 03/09/20 10:00 25 106/43 Mechanical Ventilator 100 03/09/20 10:00 106/43 03/09/20 10:00 111 25 99/42 (61) 95 03/09/20 09:30 113 24 105/41 (62) 94 03/09/20 09:00 25 109/40 Mechanical Ventilator 100 03/09/20 09:00 109/40 03/09/20 09:00 115 26 106/39 (61) 94 03/09/20 08:30 113 26 98/39 (58) 94 03/09/20 08:00 Mechanical Ventilator 03/09/20 08:00 26 105/41 Mechanical Ventilator 100 03/09/20 08:00 105/41 03/09/20 08:00 99.0 114 26 109/41 (63) 95 03/09/20 08:00 113 03/09/20 08:00 100 03/09/20 07:30 116 26 109/41 (63) 95 03/09/20 07:15 115 26 100 03/09/20 07:06 26 104/43 Mechanical Ventilator 100 03/09/20 07:00 101/40 03/09/20 07:00 115 24 104/43 (63) 96 03/09/20 06:45 116 24 106/41 (62) 96 03/09/20 06:30 117 22 112/45 (67) 94 03/09/20 06:30 114 22 03/09/20 06:19 116 66/26 03/09/20 06:18 66/26 03/09/20 06:15 114 22 118/45 (69) 86 03/09/20 06:00 88 22 60/26 (37) 03/09/20 05:45 99 26 76/31 (46) 03/09/20 05:30 104 27 90/30 (50) 86 03/09/20 05:15 115 23 109/40 (63) 95 03/09/20 05:00 117 22 133/53 (79) 95 03/09/20 05:00 22 133/53 Mechanical Ventilator 100 03/09/20 05:00 133/53 03/09/20 04:45 116 24 130/48 (75) 94 03/09/20 04:30 117 22 122/50 (74) 94 03/09/20 04:15 117 20 122/50 (74) 95 03/09/20 04:00 100 03/09/20 04:00 118 03/09/20 04:00 20 122/50 Mechanical Ventilator 100 03/09/20 04:00 122/50 03/09/20 04:00 Mechanical Ventilator 03/09/20 04:00 98.5 117 18 123/42 (69) 94 03/09/20 03:52 118 24 100 03/09/20 03:45 118 20 117/48 (71) 94 03/09/20 03:30 118 20 123/48 (73) 93 03/09/20 03:15 116 20 122/44 (70) 92 03/09/20 03:00 117 22 112/47 (68) 88 03/09/20 03:00 20 122/44 Mechanical Ventilator 100 03/09/20 03:00 122/44 03/09/20 02:45 122 22 124/61 (82) 88 03/09/20 02:30 119 25 133/51 (78) 89 03/09/20 02:15 116 24 90/35 (53) 88 03/09/20 02:00 24 90/35 Mechanical Ventilator 100 03/09/20 02:00 90/35 03/09/20 02:00 116 25 102/42 (62) 90 03/09/20 01:45 117 23 96/42 (60) 91 03/09/20 01:30 118 22 93/42 (59) 90 03/09/20 01:15 118 23 102/40 (60) 89 03/09/20 01:01 25 102/40 Mechanical Ventilator 40 03/09/20 01:00 120 26 105/41 (62) 87 03/09/20 01:00 95/40 03/09/20 00:53 120 21 106/37 (60) 85 03/09/20 00:51 66/34 03/09/20 00:45 102 24 66/34 (45) 83 03/09/20 00:30 111 29 76/29 (45) 91 03/09/20 00:15 118 27 100/38 (58) 90 03/09/20 00:07 Mechanical Ventilator 03/09/20 00:06 100 03/09/20 00:03 95/40 03/09/20 00:00 98.7 119 26 95/40 (58) 89 03/09/20 00:00 119 03/08/20 23:45 120 26 107/42 (63) 89 03/08/20 23:30 119 20 108/40 (62) 82 03/08/20 23:26 102 22 89/40 (56) 84 03/08/20 23:20 105 29 100 03/08/20 23:17 105 24 64/25 (38) 03/08/20 23:15 107 27 64/27 (39) 79 03/08/20 23:00 111 27 77/33 (48) 82 03/08/20 23:00 27 64/27 Mechanical Ventilator 100 03/08/20 23:00 64/27 03/08/20 22:45 116 28 102/35 (57) 88 03/08/20 22:30 116 24 125/46 (72) 89 03/08/20 22:15 116 25 120/51 (74) 90 03/08/20 22:15 24 91/39 Mechanical Ventilator 100 03/08/20 22:00 117 23 121/46 (71) 92 03/08/20 22:00 24 121/46 Mechanical Ventilator 100 03/08/20 22:00 121/46 03/08/20 21:45 117 22 117/50 (72) 95 03/08/20 21:30 117 24 113/42 (65) 95 03/08/20 21:15 115 20 104/45 (64) 95 03/08/20 21:00 112 19 91/39 (56) 94 03/08/20 21:00 20 104/45 Mechanical Ventilator 40 03/08/20 21:00 104/45 03/08/20 20:58 112 65/24 I&O Intake and Output 03/08/20 03/09/20 19:00 07:00 Intake Total 1712.50 ml 2292.375 ml Output Total 830 ml 600 ml Balance 882.50 ml 1692.375 ml IV Total 1312.50 ml 1852.375 ml Tube Feeding 350 ml 440 ml Other 50 ml Output Urine Total 500 ml 300 ml Chest Tube Drainage Total 330 ml 300 ml Drains: other Cardiovascular: RSR Respiratory: decreased breath sounds Abdomen: soft, present bowel sounds Extremities: no cyanosis, other Laboratory Tests Test 03/09/20 04:49 White Blood Count 27.0 K/UL (4.8-10.8) #*H Red Blood Count 2.94 M/UL (4.70-6.10) L Hemoglobin 9.2 G/DL (14.2-18.0) L Hematocrit 27.5 % (42.0-52.0) L Mean Corpuscular Volume 93 FL (80-99) Mean Corpuscular Hemoglobin 31.3 PG (27.0-31.0) H Mean Corpuscular Hemoglobin Concent 33.5 G/DL (32.0-36.0) Red Cell Distribution Width 16.1 % (11.6-14.8) H Platelet Count 22 K/UL (150-450) L Mean Platelet Volume 10.5 FL (6.5-10.1) H Neutrophils (%) (Auto) % (45.0-75.0) Lymphocytes (%) (Auto) % (20.0-45.0) Monocytes (%) (Auto) % (1.0-10.0) Eosinophils (%) (Auto) % (0.0-3.0) Basophils (%) (Auto) % (0.0-2.0) Differential Total Cells Counted 100 Neutrophils % (Manual) 96 % (45-75) H Lymphocytes % (Manual) 2 % (20-45) L Monocytes % (Manual) 2 % (1-10) Eosinophils % (Manual) 0 % (0-3) Basophils % (Manual) 0 % (0-2) Band Neutrophils 0 % (0-8) Nucleated Red Blood Cells 2 /100 WBC Platelet Estimate Decreased L Platelet Morphology Normal Hypochromasia 2+ Anisocytosis 1+ Spherocytes 2+ Sodium Level 121 MMOL/L (136-145) L Potassium Level 4.3 MMOL/L (3.5-5.1) Chloride Level 88 MMOL/L (98-107) L Carbon Dioxide Level 24 MMOL/L (21-32) Anion Gap 6 mmol/L (5-15) Blood Urea Nitrogen 45 mg/dL (7-18) H Creatinine 1.5 MG/DL (0.55-1.30) H Estimat Glomerular Filtration Rate 45.5 mL/min (>60) Glucose Level 175 MG/DL (74-106) H Calcium Level 7.1 MG/DL (8.5-10.1) L Total Bilirubin 9.0 MG/DL (0.2-1.0) H Direct Bilirubin 6.6 MG/DL (0.0-0.3) H Aspartate Amino Transf (AST/SGOT) 53 U/L (15-37) H Alanine Aminotransferase (ALT/SGPT) 23 U/L (12-78) Alkaline Phosphatase 355 U/L (46-116) H Total Protein 4.7 G/DL (6.4-8.2) L Albumin 1.5 G/DL (3.4-5.0) L Globulin 3.2 g/dL Albumin/Globulin Ratio 0.5 (1.0-2.7) L Random Vancomycin Level 12.6 ug/mL Plan Problems: (1) Pneumothorax Assessment & Plan: Patient with bilateral pneumothoraces right slightly larger than left but both are very small. On the left side there is significant amount of subcutaneous emphysema extensively more than anything on the right side. Given these findings and discussion with the patient's box person and clinical decision making currently patient is extremely ill DIC thrombocytopenia critically ill and would only recommend placing 1 chest tube at this time given how high risk he is specially with COVID status. Given the x -ray findings and the extensive subtenons emphysema recommend placing a left- sided chest tube at this time with considerations for right side if necessary. Please see procedure note. Will follow and monitor 2. A.m. chest x-ray. Thank you participate in patient' s care AM CXR may need right chest tube chest tube to water seal cont chest tube f/u cxr Is a tiny sliver of a left apical pneumothorax, apex of the lung approximately 3 mm from the chest wall. There is a slightly larger but still small right apical pneumothorax, with the apex of the lung approximately 14 mm from the edge of the chest wall. There is extensive subcutaneous emphysema, particularly in the left anterior chest wall, but also seen in the bilateral supraclavicular fossae. The inferior right heart border is very well-defined. Uncertain as whether this represents a component of pneumomediastinum or a small medial pneumothorax. Stable tube and line positions, satisfactory. Bilateral infiltrates appear slightly improved as compared to the previous study. Impression: Since 02/26/2020, interim development of small bilateral pneumothoraces, right greater than left, and extensive subcutaneous emphysema. There may also be minimal pneumomediastinum. Bilateral infiltrates have improved somewhat in the interim. (2) Thrombocytopenia (3) Elevated LFTs (4) Diabetes mellitus (5) DVT (deep venous thrombosis) (6) History of hypertension (7) Cerebrovascular accident (CVA) (8) Alzheimer's dementia (9) Debility (10) Respiratory distress (11) Hypotension (12) Respiratory failure with hypoxia (13) Sepsis (14) Suspected COVID-19 virus infection [employer] March 09, 2020 20:55
[2020-03-10] VITALS (10 sets, daily range): BP systolic 48–65; BP diastolic 28–47
[2020-03-10] MEDS: NovoLOG Insulin Flexpen SUBQ SCH
[2020-03-10] MEDS ORDERED: D5W 275ml ONE (01:56)
--- NOTE | 2020-03-10 04:52 | Emergency Room Report ---
History of Present Illness General Chief Complaint: Upper Respiratory Illness Source: Medical Record, PMD Present Illness Allergies: Coded Allergies: No Known Allergies (Unverified , 01/19/19) COVID-19 Screening Contact w/high risk pt: Yes Recent Travel to affected area: No Experienced COVID-19 symptoms?: Yes COVID-19 symptoms experienced: Fever (T>100.4F or >38C), Shortness of Breath, Cough COVID-19 Screening: Positive COVID-19 Patient History Reviewed Nursing Documentation: PMH: Agreed; PSxH: Agreed Nursing Documentation-PMH Past Medical History: No History, Except For Hx Cardiac Problems: Yes Hx Hypertension: Yes Hx Diabetes: Yes Hx Cancer: No Hx Gastrointestinal Problems: No History Of Psychiatric Problem: Yes - dementia, alzheimer/s disease Hx Cerebrovascular Accident: Yes Hx Transient Ischemic Attacks: Yes - with no residual Hx Dementia: Yes Hx Weakness: Yes Physical Exam Vital Signs Date Time Temp Pulse Resp B/P (MAP) Pulse Ox O2 Delivery O2 Flow Rate FiO2 03/06/20 07:00 101/68 03/06/20 07:00 24 Mechanical Ventilator 80 03/06/20 07:00 110 94 03/06/20 08:15 100.5 03/09/20 18:00 100.0 Procedures CPR/Code Blue CPR/Code Blue Narrative Was contacted to evaluate the patient after cardiac arrest. Patient had prior history of coronavirus infection and had been on max dose pressors. Patient was noted to have asystole on initial rhythm and was undergoing CPR. Patient is given medications as per code sheet without any return of spontaneous circulation. Patient was pronounced and code was terminated subsequently. Medical Decision Making Diagnostic Impression: Primary Impression: Suspected COVID-19 virus infection Additional Impressions: Respiratory failure with hypoxia Hypotension Last Vital Signs Date Time Temp Pulse Resp B/P (MAP) Pulse Ox O2 Delivery O2 Flow Rate FiO2 03/10/20 01:04 92 23 52/31 (38) 03/10/20 00:59 75 03/10/20 00:05 98.1 03/10/20 00:00 Mechanical Ventilator 03/10/20 00:00 100 03/09/20 18:00 100.0 Disposition: Condition: Referrals: TRAE SWENSON (PCP) Rudy Butler MD March 10, 2020 04:52
[2020-03-10] MEDS ORDERED: fentaNYL 2500mcg/NS 250ml IV SCH (06:00)
--- NOTE | 2020-03-10 10:55 | Discharge Summary ---
Discharge Summary Hospital Course Date of Admission Feb 22, 2020 at 12:59 Date of Discharge March 10, 2020 at 01:57 Admitting Diagnosis fever covidr/o hypotension HPI yT Freire is a 74 year old male who was admitted on Feb 22, 2020 at 12:59 for Fever, Covid-19 Rule Out, Hypotension Hospital Course 74 y/o M from [place], [facility] HTN, DMT2, dementia, Alzheimers dx, h/o CVA/TIA, h/o DVT, schizophrenia who presents for Fever. In the ED, pt found to be septic, Tm 100.9 , RR22, WBC 7.3, Lactic acid 2.8, and ABG revealed acute hypoxic respiratory failure. Pt was intubated on 02/21 and admitted to ICU for acute hypoxic respiratory failure, COVID positive. Pt remained critically ill throughout hospital stay, no family was on record, called pt's long-term who stated he had been a resident there for 5 years and has no family. Pt decompensated and a central line was placed, pt started on pressure support. Pt was treated by ID w / full course of hydroxychloroquine, vancomycin, Diflucan, cefepime and Flagyl. Pt developed thrombocytopenia, jaundice, elevated t bili, direct bili, all likely 2/2 sepsis/HCAP/COVID. CXR on 02/25 showed small b/l pneumothoraces, extensive subcutaneous emphysema, there may also be minimal pneumomediastinum. Left chest tube was placed on 03/02/2020 by general surgery. Pt remained hypotensive, maxed out on pressure support. On 03/10 pt noted w/no gag reflex, no response to painful stimuli off sedation. At 1:40 AM on 03/10 pt went into asystole on the monitor, pulses were checked and confirmed no pulse by the nurse. CODE BLUE was called and ACLS protocol was initiated. Pt was pronounced at 2:00 AM. D/c diagnosis: #Septic shock 2/2 #Acute Hypoxic Respiratory Failure 2/2 HCAP/COVID+ and CHF #Pneumothorax s/p left Chest tube 03/01 #Thrombocytopenia #Anemia of chronic dx #Jaundiced - stable #Hyperbilirubinemia #Hyponatremia #Hypokalemia #Hypernatremia - improved #Type 2 DM #HTN #Alzheimer disease/Dementia #Schizophrenia/Bipolar dx d/c planning <30 mins. Discharge Condition Upon Discharge: other - pt Discharge Vital Signs Last Vital Signs Date Time Temp Pulse Resp B/P (MAP) Pulse Ox O2 Delivery O2 Flow Rate FiO2 03/10/20 01:04 92 23 52/31 (38) 03/10/20 00:59 75 03/10/20 00:05 98.1 03/10/20 00:00 Mechanical Ventilator 03/10/20 00:00 100 03/09/20 18:00 100.0 Discharge Disposition Patient was discharged to Goisa Nunez M.D. March 10, 2020 10:55
== END 2020-03-10 01:57 | disposition expired | DRG 720 ==
LOC: EDBD 12:20 → EMR 12:47 → ICU 12:59 → UNDOADMIN 13:03 → ICU 13:03 → EDBEDREQSVC 13:50 → EDBEDREQ 13:50
PROC: 06HM33Z Insertion of Infusion Device into Right Femoral Vein, Percutaneous Approach (ICD-10-PCS; principal; 2020-02-22)
PROC: 5A1955Z Respiratory Ventilation, Greater than 96 Consecutive Hours (ICD-10-PCS; principal; 2020-02-22)
PROC: 0BH17EZ Insertion of Endotracheal Airway into Trachea, Via Natural or Artificial Opening (ICD-10-PCS; principal; 2020-02-22)
PROC: 05HM33Z Insertion of Infusion Device into Right Internal Jugular Vein, Percutaneous Approach (ICD-10-PCS; 2020-02-26)
PROC: 0W9B30Z Drainage of Left Pleural Cavity with Drainage Device, Percutaneous Approach (ICD-10-PCS; 2020-03-01)
PROC: 5A12012 Performance of Cardiac Output, Single, Manual (ICD-10-PCS; 2020-03-10)
DX: A41.89 Other specified sepsis (principal); R65.21 Severe sepsis with septic shock; J12.89 Other viral pneumonia; J96.01 Acute respiratory failure with hypoxia; E87.0 Hyperosmolality and hypernatremia; G30.9 Alzheimer's disease, unspecified; F02.80 Dementia in other diseases classified elsewhere, unspecified severity, without behavioral disturbance, psychotic disturbance, mood disturbance, and anxiety; U07.1 COVID-19; J93.9 Pneumothorax, unspecified; I11.0 Hypertensive heart disease with heart failure; I50.9 Heart failure, unspecified; E11.9 Type 2 diabetes mellitus without complications; F03.90 Unspecified dementia, unspecified severity, without behavioral disturbance, psychotic disturbance, mood disturbance, and anxiety; Z86.73 Personal history of transient ischemic attack (TIA), and cerebral infarction without residual deficits; Z86.718 Personal history of other venous thrombosis and embolism; F20.9 Schizophrenia, unspecified; E86.0 Dehydration; F31.9 Bipolar disorder, unspecified; E87.8 Other disorders of electrolyte and fluid balance, not elsewhere classified; E87.6 Hypokalemia; D69.6 Thrombocytopenia, unspecified; D64.9 Anemia, unspecified; R17 Unspecified jaundice; N17.9 Acute kidney failure, unspecified; Z99.11 Dependence on respirator [ventilator] status; E88.09 Other disorders of plasma-protein metabolism, not elsewhere classified; R94.5 Abnormal results of liver function studies; J98.2 Interstitial emphysema
CPT/HCPCS: 31500; 36415; 36569; 36600; 71045; 74018; 80048; 80053; 80202; 81003; 82248; 82306; 82330; 82550; 82553; 82728; 82803; 82962; 83010; 83540; 83550; 83605; 83615; 83735; 83880; 83935; 84100; 84300; 84443; 84478; 84484; 85007; 85025; 85060; 85362; 85379; 85384; 85610; 85730; 86703; 86705; 86709; 86803; 86850; 86900; 86901; 86920; 86927; 87040; 87070; 87081; 87086; 87181; 87205; 87340; 87635; 92950; 93005; 93306; 94002; 94003; 96365; 96367; 96368; 99291; J1815; J2370; J2765; J7030; J8499